=== PATIENT | female | born 1970 | race Two or more races ===

== ENCOUNTER 2019-12-21 09:15 | Outpatient (REF) | payer OTHER, SELFPAY ==
--- NOTE | 2019-12-21 | EMG_ITS ---
The right median, ulnar, motor and sensory studies were performed. Right radial sensory study was performed and paraspinal muscles were tested. IMPRESSION: 1. Symk-ra-fuxemupo right median neuropathy across carpal tunnel. 2. Ocpx-rr-isydycts right ulnar neuropathy across cubital tunnel. MD VERN Arias/LUISA / [phone]
== END 2019-12-21 09:16 | disposition home or self-care (01) ==
LOC: HO.NEURO 09:15
PROVIDERS: PCP Internal Medicine; Visit Provider Internal Medicine
DX: R20.0 Anesthesia of skin (principal)
CPT/HCPCS: 95860; 95885; 95909

== ENCOUNTER 2020-04-02 08:27 | Outpatient (REF) | payer OTHER, SELFPAY | END 2020-04-02 08:28 | disposition home or self-care (01) | LOC: HO.LAB 08:27 | PROVIDERS: PCP Internal Medicine; Visit Provider Internal Medicine | DX: Z20.822 Contact with and (suspected) exposure to COVID-19 (principal) | CPT/HCPCS: 36415; C9803; U0003 ==

== ENCOUNTER 2020-04-24 08:07 | Outpatient (REF) | payer OTHER, SELFPAY | END 2020-04-24 08:08 | disposition home or self-care (01) | LOC: HO.LAB 08:07 | PROVIDERS: Visit Provider Internal Medicine | DX: Z20.822 Contact with and (suspected) exposure to COVID-19 (principal) | CPT/HCPCS: 36415; C9803; U0003; U0005 ==

== ENCOUNTER 2020-05-15 10:52 | Outpatient (REF) | payer OTHER, SELFPAY ==
--- NOTE | ~2020-05-15 | XR_ITS ---
EXAMINATION: XR HAND, RIGHT CLINICAL INFORMATION: Synovitis and tenosynovitis. COMPARISON: None. TECHNIQUE: PA, lateral, and oblique views of the right hand. FINDINGS: The intercarpal, carpometacarpal and interphalangeal joint spaces are maintained. No visible acute fracture, dislocation or loose body seen. There is a small bone fragment adjacent to the scaphoid bone, likely old avulsion injury. The soft tissues are unremarkable. XR/XR hand RT min 3V IMPRESSION: No acute fracture, dislocation or subluxation. Small avulsion fragment adjacent to the scaphoid bone, likely old injury.
== END 2020-05-15 10:53 | disposition home or self-care (01) ==
LOC: HO.HMGCX 10:52
PROVIDERS: PCP Internal Medicine; Visit Provider Nurse Practitioner Family
DX: M65.9 Synovitis and tenosynovitis, unspecified (principal)
CPT/HCPCS: 73130

== ENCOUNTER 2020-05-16 08:51 | Outpatient (REF) | payer OTHER, SELFPAY | END 2020-05-16 08:52 | disposition home or self-care (01) | LOC: HO.LAB 08:51 | PROVIDERS: Visit Provider Internal Medicine | DX: Z20.822 Contact with and (suspected) exposure to COVID-19 (principal) | CPT/HCPCS: 36415; C9803; U0003; U0005 ==

== ENCOUNTER 2020-06-30 22:34 | Emergency (ER) | payer OTHER, SELFPAY ==
[2020-06-30 22:35] VITALS: BP 140/70; PULSE 108; O2SAT 100
[2020-06-30 23:49] VITALS: BP 108/79; PULSE 94; RESP 16; TEMP 36.2; O2SAT 96; BMI 36.6
--- NOTE | 2020-07-01 00:15 | PC.NURSE ---
at bedside for primary eval.
--- NOTE | 2020-07-01 00:20 | ECG_ITS ---
Test Reason : SOB Blood Pressure : / mmHG Vent. Rate : 084 BPM Atrial Rate : 084 BPM P-R Int : 156 ms QRS Dur : 090 ms QT Int : 392 ms P-R-T Axes : 033 022 018 degrees QTc Int : 463 ms Normal sinus rhythm Nonspecific T wave abnormality Prolonged QT Abnormal ECG When compared with ECG of 10-OCT-2019 15:58, No significant change was found Referred By: Marcelle Hanks Electronically Signed By:Tahir Mederos
--- NOTE | 2020-07-01 00:24 | ED.GENADULT ---
HPI - General Adult General Chief complaint: Anxiety Stated complaint: Anxiety Time Seen by Provider: 07/01/20 00:12 Source: patient Mode of arrival: ambulatory Limitations: no limitations History of Present Illness HPI narrative: Patient comes to emergency room complaining of worsening panic attacks. Patient states that she takes usually Klonopin for anxiety/panic attacks, lately they become more frequent and at night only, patient has been doubling up her dose of Klonopin. Patient also complaining of diarrhea for 4 days, states that yesterday she was running towards the bathroom, tripped and landed on her buttocks. Related Data Home Medications Medication Instructions Recorded Confirmed clonazepam 0.5 mg tablet 0.5 mg PO TID PRN 02/29/20 02/29/20 oxcarbazepine 150 mg tablet 0 mg PO 02/29/20 02/29/20 oxcarbazepine 600 mg tablet 600 mg PO BID 02/29/20 02/29/20 quetiapine 100 mg tablet 100 mg PO BEDTIME 02/29/20 02/29/20 quetiapine 400 mg tablet 400 mg PO BEDTIME 02/29/20 02/29/20 quetiapine 50 mg tablet 0 mg PO 02/29/20 02/29/20 Previous Rx's Medication Instructions Recorded polyethylene glycol 3350 17 17 g PO DAILY PRN 30 Days #510 g 12/20/19 gram/dose oral powder gabapentin 100 mg capsule 100 mg PO TID #60 cap 12/22/19 naproxen 500 mg tablet 500 mg PO BID PRN #30 tab 12/22/19 cholecalciferol (vitamin D3) 25 25 mcg PO DAILY 90 Days #90 cap 02/29/20 mcg (1,000 unit) capsule loperamide 2 mg PO Q4H PRN #10 tab 07/01/20 Allergies Allergy/AdvReac Type Severity Reaction Status Date / Time fentanyl [FENTANYL] Allergy Unknown VOMITING Verified 02/29/20 09:07 Penicillins [PENICILLINS] Allergy Unknown ANAPHYLAXIS Verified 02/29/20 09:07 sertraline [From ZOLOFT] Allergy Unknown ANXIETY Verified 02/29/20 09:07 zolpidem [From AMBIEN] Allergy Unknown unk Verified 02/29/20 09:07 Review of Systems Review of Systems: Constitutional : No Weight loss, No Fever, No Chills, No Night Sweats, No Fatigue, No Malaise ENT/Mouth : No Hearing loss, No Ear Pain, No Nasal Congestion, No Sinus Pain, No Hoarseness, No sore throat, No Rhinorrhea, No Swallowing Difficulty Eyes: No Eye Pain, No Swelling, No Redness, No Foreign Body, No Discharge, No Vision Changes Cardiovascular : No Chest Pain, No SOB, No Dyspnea on Exertion, No Orthopnea, No Edema, No Palpitations Respiratory : No Cough, No Sputum, No Wheezing, No Smoke Exposure, No Dyspnea Gastrointestinal : No Nausea, No Vomiting, complaining of 4 days of Diarrhea, No Constipation, complaining of intermittent abdominal cramping, No Hematochezia, No Melena Genitourinary : no irregular bleeding, No Dysuria, No Urinary Frequency, No Hematuria, No Urinary Incontinence, No Urgency, No Flank Pain, No Urinary Flow Changes, No Hesitancy Musculoskeletal : Complaining of chronic pain due to fibromyalgia Skin : No Skin Lesions, No rash Neuro : No Weakness, No Numbness, No Paresthesias, No Loss of Consciousness, No Dizziness, No Headache Psych : Complaining of worsening anxiety and panic attacks, No Depression, No SI/HI/AH/VH, No Social Issues, Heme/Lymph: No Bruising, No Bleeding,No Lymphadenopathy Endocrine : No Polyuria, No Polydipsia, No Temperature Intolerance PMFSH Past Medical History Medical History Anxiety Bipolar disorder Constipation by delayed colonic transit Depression Hypovitaminosis D Surgical History History of appendectomy History of bunionectomy History of cholecystectomy History of hemorrhoidectomy History of right hip replacement Family History Family History (Updated 02/26/20 @ 06:56 by Carol Jose Fabio) Father Depression Prostate cancer Chronic mental illness Mother Diabetes Cancer Maternal Aunt Breast cancer Family/Other Chronic mental illness Social History Social History Alcohol intake: never Smoking Status: Never smoker Advance Directives: No Advance Directives Information Provided: No Physical Exam Vital Signs: Vital Signs: Last Vital Signs Temp 97.1 F 06/30/20 23:49 Pulse 88 07/01/20 00:48 Resp 16 07/01/20 00:48 BP 116/81 04/19/21 00:48 Pulse Ox 96 06/30/20 23:49 Body Mass Index 36.6 Appearance: Alert. Oriented X3. No acute distress. Eyes: Pupils equal, round and reactive to light. ENT: Pharynx normal. Neck: Normal inspection. Neck supple. No lymph nodes noted. No crepitus CVS: Normal heart rate and rhythm. Pulses normal. Normal S1 and S2 Respiratory: No respiratory distress. Breath sounds normal. No Wheezing. No rales Abdomen: Soft and nontender. No rigidity. No distention. Skin: Skin warm and dry. Normal skin color. Normal skin turgor. Extremities: No lower extremity edema. No lower extremity edema. No Lacerations. No Rash Neuro: Oriented X 3. No motor deficit. No sensory deficit. Moving all extermities. No slurred speech. Course Course Course Narrative: I discussed the labs with the patient, patient instructed to follow-up with her primary care physician. Patient has chronic elevated LFTs. Patient tested positive for benzos and THC. Medical Decision Making Lab Data Result diagrams: 07/01/20 01:23 07/01/20 01:23 Labs: Lab Results 07/01/20 07/01/20 07/01/20 Range/Units 00:47 00:47 01:23 WBC 8.0 (4.8-10.8) X10*3/uL RBC 4.90 (4.20-5.50) X10*6/uL Hgb 14.7 (12.0-16.0) g/dl Hct 45.3 (37-47) % MCV 92.4 (80-98) fL MCH 30.0 (27.0-33.0) pg MCHC 32.5 (31.0-35.0) g/dl RDW 13.2 (11.0-16.0) % Plt Count 239 (160-400) X10*3/uL MPV 9.1 L (9.4-12.3) fL Immature Gran % (Auto) 0.2 (0.0-0.4) % Neut % (Auto) 44.6 L (45-73) % Lymph % (Auto) 40.0 (20-40) % [place] % (Auto) 8.5 (2-11) % Eos % (Auto) 5.8 H (0-4) % Baso % (Auto) 0.9 (0-2) % Lymph # (Auto) 3.2 (1.2-4.9) X10*3/uL [place] # (Auto) 0.7 (0.1-1.2) X10*3/uL Eos # (Auto) 0.5 H (0.0-0.4) X10*3/uL Baso # (Auto) 0.1 (0.0-0.2) X10*3/uL Abs Immat Gran (auto) 0.02 (0.00-0.03) X10*3/uL Absolute Neuts (auto) 3.6 (2.0-8.3) X10*3/uL Absolute Nucleated RBC 0.000 (0.0-0.012) X10*3/uL Nucleated RBC % (auto) 0.0 (0.0-0.2) /100WBC Sodium (135-145) mmol/L Potassium (3.3-5.1) mmol/L Chloride (96-108) mmol/L Carbon Dioxide (22-29) mmol/L Anion Gap (12-20) BUN (9-16) mg/dL Creatinine (0.5-1.4) mg/dL Estim Creat Clear Calc Estimated GFR Random Glucose (60-115) mg/dL Calcium (8.4-10.2) mg/dL Total Bilirubin (0.0-1.0) mg/dL Direct Bilirubin (0.0-0.5) mg/dL AST (5-31) U/L ALT (0-31) U/L Alkaline Phosphatase (39-117) U/L Total Protein (6.5-8.0) g/dL Albumin (3.5-5.0) g/dL Lipase (8-78) U/L Urine Color YELLOW Urine Appearance CLEAR Urine pH 6.0 (5.0-8.0) Ur Specific [place] >= 1.030 H (1.005-1.025) Urine Protein NEG (NEG-TRACE) MG/DL Urine Glucose (UA) NEG (NEG) MG/DL Urine Ketones NEG (NEG) MG/DL Urine Blood NEG (NEG) Urine Nitrite NEG (NEG) Ur Leukocyte Esterase NEG (NEG) Urine Opiates Screen Not Detected (Not Detect) Ur Barbiturates Screen Not Detected (Not Detect) Ur Phencyclidine Scrn Not Detected (Not Detect) Ur Amphetamines Screen Not Detected (Not Detect) U Benzodiazepines Scrn POSITIVE H (Not Detect) Urine Cocaine Screen Not Detected (Not Detect) U Marijuana (THC) Screen POSITIVE H (Not Detect) 07/01/20 07/01/20 Range/Units 01:23 01:23 WBC (4.8-10.8) X10*3/uL RBC (4.20-5.50) X10*6/uL Hgb (12.0-16.0) g/dl Hct (37-47) % MCV (80-98) fL MCH (27.0-33.0) pg MCHC (31.0-35.0) g/dl RDW (11.0-16.0) % Plt Count (160-400) X10*3/uL MPV (9.4-12.3) fL Immature Gran % (Auto) (0.0-0.4) % Neut % (Auto) (45-73) % Lymph % (Auto) (20-40) % [place] % (Auto) (2-11) % Eos % (Auto) (0-4) % Baso % (Auto) (0-2) % Lymph # (Auto) (1.2-4.9) X10*3/uL [place] # (Auto) (0.1-1.2) X10*3/uL Eos # (Auto) (0.0-0.4) X10*3/uL Baso # (Auto) (0.0-0.2) X10*3/uL Abs Immat Gran (auto) (0.00-0.03) X10*3/uL Absolute Neuts (auto) (2.0-8.3) X10*3/uL Absolute Nucleated RBC (0.0-0.012) X10*3/uL Nucleated RBC % (auto) (0.0-0.2) /100WBC Sodium 140 (135-145) mmol/L Potassium 3.3 (3.3-5.1) mmol/L Chloride 105 (96-108) mmol/L Carbon Dioxide 20 L (22-29) mmol/L Anion Gap 18 (12-20) BUN 13 (9-16) mg/dL Creatinine 0.80 (0.5-1.4) mg/dL Estim Creat Clear Calc 96.2 Estimated GFR > 60 Random Glucose 102 (60-115) mg/dL Calcium 9.2 (8.4-10.2) mg/dL Total Bilirubin 0.5 (0.0-1.0) mg/dL Direct Bilirubin 0.2 (0.0-0.5) mg/dL AST 35 H (5-31) U/L ALT 50 H (0-31) U/L Alkaline Phosphatase 159 H (39-117) U/L Total Protein 7.6 (6.5-8.0) g/dL Albumin 4.4 (3.5-5.0) g/dL Lipase 32 (8-78) U/L Urine Color Urine Appearance Urine pH (5.0-8.0) Ur Specific [place] (1.005-1.025) Urine Protein (NEG-TRACE) MG/DL Urine Glucose (UA) (NEG) MG/DL Urine Ketones (NEG) MG/DL Urine Blood (NEG) Urine Nitrite (NEG) Ur Leukocyte Esterase (NEG) Urine Opiates Screen (Not Detect) Ur Barbiturates Screen (Not Detect) Ur Phencyclidine Scrn (Not Detect) Ur Amphetamines Screen (Not Detect) U Benzodiazepines Scrn (Not Detect) Urine Cocaine Screen (Not Detect) U Marijuana (THC) Screen (Not Detect) ECG Data Attestation: I personally reviewed and interpreted this ECG as follows: (Sinus rhythm, heart rate 84, QTC 463, Mrs. 7 depression or elevation, no T-wave inversion) Discharge Plan Discharge Clinical Impression: Anxiety Diarrhea Qualifiers: Diarrhea type: unspecified type Qualified Code(s): R19.7 - Diarrhea, unspecified Patient Disposition: Home, Self-Care Instructions: Acute Diarrhea (ED), Anxiety (ED) Additional Instructions: Please follow-up with your primary care physician tomorrow. If you have any worsening or new symptoms, please return to the emergency room or call 911 Prescriptions: New loperamide 2 mg tablet 2 mg PO Q4H PRN (Reason: loose stool) Qty: 10 RF: 0 No Action polyethylene glycol 3350 [Miralax] 17 gram/dose powder 17 g PO DAILY PRN (Reason: constipation) 30 Days Qty: 510 RF: 3 quetiapine 400 mg tablet 400 mg PO BEDTIME RF: 0 quetiapine 50 mg tablet 0 mg PO RF: 0 oxcarbazepine 600 mg tablet 600 mg PO BID RF: 0 quetiapine 100 mg tablet 100 mg PO BEDTIME RF: 0 clonazepam 0.5 mg tablet 0.5 mg PO TID PRNRF: 0 oxcarbazepine 150 mg tablet 0 mg PO RF: 0 cholecalciferol (vitamin D3) 25 mcg (1,000 unit) capsule 25 mcg PO DAILY 90 Days Qty: 90 RF: 3 naproxen 500 mg tablet 500 mg PO BID PRN (Reason: pain) Qty: 30 RF: 0 gabapentin 100 mg capsule 100 mg PO TID Qty: 60 RF: 0
[2020-07-01] MEDS: Loperamide HCl 2 MG CAPSULE 4 MG PO (00:39)
[2020-07-01 00:48] VITALS: BP 116/81; PULSE 88; RESP 16
--- NOTE | 2020-07-01 00:52 | PC.NURSE ---
UA and EKG obtained by this RN.
[2020-07-01 00:55] LABS: Glucose Urine UA NEG (NEG); Leukocyte Esterase Urine NEG (NEG); Nitrite Urine NEG (NEG); Specific Gravity - Urine >= 1.030 (1.005-1.025); Urine Blood NEG (NEG); Urine Ketones NEG (NEG); Urine Protein NEG (NEG-TRACE)
[2020-07-01 00:57] LABS: Appearance Urine CLEAR; Color Urine YELLOW
[2020-07-01 01:19] LABS: Amphetamine Screen Urine Not Detected (Not Detect); Barbiturates, Urine Not Detected (Not Detect); Benzodiazepines Screen Urine POSITIVE (Not Detect); Cannabinoid Screen Urine POSITIVE (Not Detect); Cocaine Screen Urine Not Detected (Not Detect); Opiate Screen Urine Not Detected (Not Detect); Phencyclidine Screen Urine Not Detected (Not Detect)
[2020-07-01] MEDS: 0.9 % Sodium Chloride 1,000 ML 999 ML IVCONT (01:23)
--- NOTE | 2020-07-01 01:24 | PC.NURSE ---
IV inserted, blood work drawn and sent to lab. pt resting comfortably in bed watching videos on her phone. no distress noted. pt has no questions or concerns at this time. call john in reach.
[2020-07-01 01:28] LABS: MANUAL DIFF FLAG NO
[2020-07-01 01:30] LABS: Basophils Absolute Auto 0.1 X10*3/uL (0.0-0.2); Basophils Percent Auto 0.9 % (0-2); Eosinophils Absolute Auto 0.5 X10*3/uL (0.0-0.4); Eosinophils Percent Auto 5.8 % (0-4); Hematocrit 45.3 % (37-47); Hemoglobin 14.7 g/dl (12.0-16.0); Imm Gran Abs Auto 0.02 X10*3/uL (0.00-0.03); Imm Gran Pct Auto 0.2 % (0.0-0.4); Lymphocytes Absolute Auto 3.2 X10*3/uL (1.2-4.9); Mean Corpuscular HGB Conc 32.5 g/dl (31.0-35.0); Mean Corpuscular Volume 92.4 fL (80-98); Mean Platelet Volume 9.1 fL (9.4-12.3); Monocytes Absolute Auto 0.7 X10*3/uL (0.1-1.2); Monocytes Percent Auto 8.5 % (2-11); Neutrophils Absolute Auto 3.6 X10*3/uL (2.0-8.3); Neutrophils Percent Auto 44.6 % (45-73); Platelet Count 239 X10*3/uL (160-400); Red Cell Distribution Width 13.2 % (11.0-16.0)
[2020-07-01 02:02] LABS: Lipase 32 U/L (8-78)
[2020-07-01 02:07] LABS: Alanine Aminotransferase 50 U/L (0-31); Albumin Level 4.4 g/dL (3.5-5.0); Alkaline Phosphatase 159 U/L (39-117); Anion Gap 18 (12-20); Aspartate Amino Transferase 35 U/L (5-31); Bilirubin Direct 0.2 mg/dL (0.0-0.5); Bilirubin Total 0.5 mg/dL (0.0-1.0); Blood Urea Nitrogen 13 mg/dL (9-16); Calcium 9.2 mg/dL (8.4-10.2); Carbon Dioxide 20 mmol/L (22-29); Chloride 105 mmol/L (96-108); Creatinine Clr Calc Pharmacy 96.2; Estimated Glomerular Filt Rate > 60; Glucose Random 102 mg/dL (60-115); Potassium 3.3 mmol/L (3.3-5.1); Sodium 140 mmol/L (135-145); Total Protein 7.6 g/dL (6.5-8.0)
[2020-07-01 02:45] VITALS: BP 108/68; PULSE 88; RESP 16
== END 2020-07-01 03:00 | disposition home or self-care (01) ==
PROVIDERS: Emergency Provider Emergency Medicine; PCP Internal Medicine
DX: F41.1 Generalized anxiety disorder (principal); F43.0 Acute stress reaction; R19.7 Diarrhea, unspecified; Z79.899 Other long term (current) drug therapy
CPT/HCPCS: 36415; 80048; 80076; 80307; 81003; 83690; 85025; 93005; 96360; 99284

== ENCOUNTER 2020-07-09 08:38 | Outpatient (REF) | payer OTHER, SELFPAY ==
--- NOTE | ~2020-07-09 | XR_ITS ---
EXAMINATION: BILATERAL FOOT X-RAY CLINICAL INFORMATION: Pain COMPARISON: Previous left foot x-ray most recent September 2019 TECHNIQUE: 3 views of each foot FINDINGS: Left: There are stable postsurgical changes to the first metatarsal head. There are mild degenerative changes of the first MTP joint with small osteophytes. Joint spaces are otherwise normal. No fracture or dislocation is seen. There are calcaneal spurs. Soft tissues are normal. Right: There is mild hallux valgus deformity and arthritis at the first MTP joint. Joint spaces are otherwise normal. No fracture or dislocation is seen. There is mild paraseptal minus. There are calcaneal spurs. XR/XR foot RT min 3V IMPRESSION: Left: Stable postsurgical changes following first metatarsal head osteotomy. Mild arthritis at the first MTP joint and calcaneal spurs. Right: Mild hallux valgus deformity and arthritis at the first MTP joint. Mild pes planus. Calcaneal spurs.
--- NOTE | ~2020-07-09 | XR_ITS ---
EXAMINATION: BILATERAL FOOT X-RAY CLINICAL INFORMATION: Pain COMPARISON: Previous left foot x-ray most recent September 2019 TECHNIQUE: 3 views of each foot FINDINGS: Left: There are stable postsurgical changes to the first metatarsal head. There are mild degenerative changes of the first MTP joint with small osteophytes. Joint spaces are otherwise normal. No fracture or dislocation is seen. There are calcaneal spurs. Soft tissues are normal. Right: There is mild hallux valgus deformity and arthritis at the first MTP joint. Joint spaces are otherwise normal. No fracture or dislocation is seen. There is mild paraseptal minus. There are calcaneal spurs. XR/XR foot LT min 3V IMPRESSION: Left: Stable postsurgical changes following first metatarsal head osteotomy. Mild arthritis at the first MTP joint and calcaneal spurs. Right: Mild hallux valgus deformity and arthritis at the first MTP joint. Mild pes planus. Calcaneal spurs.
== END 2020-07-09 08:39 | disposition home or self-care (01) ==
LOC: HO.XRAY 08:38
PROVIDERS: PCP Internal Medicine; Visit Provider Internal Medicine
DX: M79.671 Pain in right foot (principal); M79.672 Pain in left foot
CPT/HCPCS: 73630

== ENCOUNTER 2020-09-26 09:14 | Outpatient (REF) | payer OTHER, SELFPAY ==
[2020-09-26 10:49] LABS: MANUAL DIFF FLAG NO
[2020-09-26 10:59] LABS: Basophils Absolute Auto 0.1 X10*3/uL (0.0-0.2); Eosinophils Absolute Auto 0.3 X10*3/uL (0.0-0.4); Eosinophils Percent Auto 4.4 % (0-4); Hematocrit 44.7 % (37-47); Hemoglobin 14.3 g/dl (12.0-16.0); Imm Gran Abs Auto 0.01 X10*3/uL (0.00-0.03); Imm Gran Pct Auto 0.2 % (0.0-0.4); Lymphocytes Absolute Auto 2.3 X10*3/uL (1.2-4.9); Lymphocytes Percent Auto 38.4 % (20-40); Mean Corpuscular Hemoglobin 30.3 pg (27.0-33.0); Mean Corpuscular Volume 94.7 fL (80-98); Mean Platelet Volume 9.7 fL (9.4-12.3); Monocytes Absolute Auto 0.5 X10*3/uL (0.1-1.2); Monocytes Percent Auto 7.9 % (2-11); Neutrophils Absolute Auto 2.9 X10*3/uL (2.0-8.3); Neutrophils Percent Auto 48.1 % (45-73); Platelet Count 250 X10*3/uL (160-400); Red Blood Count 4.72 X10*6/uL (4.20-5.50); Red Cell Distribution Width 13.5 % (11.0-16.0); White Blood Count 5.9 X10*3/uL (4.8-10.8)
[2020-09-26 11:35] LABS: Alanine Aminotransferase 30 U/L (0-31); Albumin Level 4.4 g/dL (3.5-5.0); Alkaline Phosphatase 163 U/L (39-117); Anion Gap 12 (12-20); Aspartate Amino Transferase 25 U/L (5-31); Bilirubin Total 0.4 mg/dL (0.0-1.0); Blood Urea Nitrogen 9 mg/dL (9-16); C Reactive Protein 0.37 mg/dL (< or = 0.50); Calcium 9.9 mg/dL (8.4-10.2); Carbon Dioxide 27 mmol/L (22-29); Chloride 106 mmol/L (96-108); Estimated Glomerular Filt Rate > 60; Glucose Random 72 mg/dL (60-115); Sodium 141 mmol/L (135-145); Total Protein 7.6 g/dL (6.5-8.0)
[2020-09-26 11:44] LABS: Rheumatoid Factor < 15.0 IU/mL (<15.0); Thyroid Stimulating Hormone 0.98 uIU/mL (0.32-4.0)
[2020-09-26 12:08] LABS: Erythrocyte Sedimentation Rate 7 MM/HR (0-20)
[2020-09-28 14:06] LABS: Cyclic Citrullinated Peptide <16 UNITS
[2020-09-30 14:26] LABS: Anti Nuclear Antibody Screen NEGATIVE (NEGATIVE)
[2020-10-01 14:26] LABS: Vitamin D 25-OH, D2 <4 ng/mL; Vitamin D 25-OH, D3 25 ng/mL; Vitamin D 25-OH, Total 25 ng/mL (30-100)
== END 2020-09-26 09:15 | disposition home or self-care (01) ==
LOC: HO.LAB 09:14
PROVIDERS: PCP Internal Medicine; Visit Provider Student in an Organized Health Care Education/Training Program
DX: M79.672 Pain in left foot (principal); M79.671 Pain in right foot; M25.50 Pain in unspecified joint; E55.9 Vitamin D deficiency, unspecified; F41.8 Other specified anxiety disorders; Z88.5 Allergy status to narcotic agent; Z88.0 Allergy status to penicillin; Z88.8 Allergy status to other drugs, medicaments and biological substances; Z79.899 Other long term (current) drug therapy
CPT/HCPCS: 36415; 80053; 82306; 84443; 85025; 85652; 86038; 86039; 86140; 86200; 86431; 99202

== ENCOUNTER 2020-12-10 08:54 | Outpatient (REF) | payer OTHER, SELFPAY | END 2020-12-10 08:55 | disposition home or self-care (01) | LOC: HO.LAB 08:54 | PROVIDERS: PCP Internal Medicine; Visit Provider Internal Medicine | DX: Z20.822 Contact with and (suspected) exposure to COVID-19 (principal) | CPT/HCPCS: C9803; U0003; U0005 ==

== ENCOUNTER 2021-02-04 07:02 | Emergency (ER) | payer OTHER, SELFPAY ==
--- NOTE | ~2021-02-04 | XR_ITS ---
EXAMINATION: XR SHOULDER, RIGHT CLINICAL INFORMATION: Fall COMPARISON: 08/29/2018 TECHNIQUE: AP external rotation, Grashey, scapular Y, and axillary views of the right shoulder. FINDINGS: No acute fracture or dislocation. Mild acromioclavicular and glenohumeral osteoarthritis. No suspicious bone lesion or soft tissue calcification. XR/XR shoulder RT min 2V IMPRESSION: No fracture.
[2021-02-04 07:06] VITALS: BP 109/70; PULSE 87; RESP 18; TEMP 36.3; O2SAT 97; BMI 35.7
[2021-02-04] MEDS: Ibuprofen 600 MG TABLET PO (07:11)
--- NOTE | 2021-02-04 08:20 | ED.FALL ---
HPI - Fall General Chief Complaint: Fall Stated Complaint: fall - hip, head & back pain Time Seen by Provider: 02/04/21 08:10 Source: patient Mode of arrival: ambulatory History of Present Illness HPI Narrative: 51-year-old female with a past medical history anxiety, bipolar, carpal tunnel, depression, polyarthralgia, presenting to the ED complaining of right shoulder pain s/p falling out of bed this morning. Reports rolled out of bed that is about 1.5 ft off ground, hit head, denies LOC , has been ambulatory since the incident. Admits to associated headache, nausea, & paresthesias /tingling in fingers. Reports pain with arm ROM. denies taking any anticoagulation. Denies vision change/ loss, vomiting, CP/ SOB, abdominal pain, back pain, urinary incontinence / retention, weakness MD complaint: fall Related Data Home Medications Medication Instructions Recorded Confirmed clonazepam 0.5 mg tablet 0.5 mg PO TID PRN 02/29/20 12/04/20 oxcarbazepine 600 mg tablet 600 mg PO BID 02/29/20 12/04/20 quetiapine 100 mg tablet 100 mg PO BEDTIME 02/29/20 12/04/20 quetiapine 400 mg tablet 400 mg PO BEDTIME 02/29/20 12/04/20 Previous Rx's Medication Instructions Recorded duloxetine 30 mg capsule,delayed 30 mg PO DAILY 90 Days #90 cap 07/08/20 release methocarbamol 750 mg tablet 750 mg PO TID PRN #10 tab 12/04/20 methylprednisolone 4 mg tablets in See Rx Instructions PO PER PKG DIR 12/04/20 a dose pack (Medrol (Yasmani)) #21 ea sulfamethoxazole 800 1 tab PO BID 7 Days #14 tab 01/14/21 mg-trimethoprim 160 mg tablet (Bactrim DS) acetaminophen 500 mg tablet 500 mg PO Q6H PRN #20 tab 02/04/21 (Tylenol Extra Strength) cyclobenzaprine 5 mg tablet 5 mg PO Q8H PRN 5 Days #14 tab 02/04/21 lidocaine 5 % topical patch 1 patch TOPICAL DAILY PRN #30 ea 02/04/21 (Lidoderm) MDD remove after 12 hours naproxen 500 mg tablet 500 mg PO BID PRN 10 Days #20 tab 02/04/21 Allergies Allergy/AdvReac Type Severity Reaction Status Date / Time fentanyl [FENTANYL] Allergy Intermediate VOMITING Verified 02/04/21 07:06 Penicillins [PENICILLINS] Allergy Intermediate ANAPHYLAXIS Verified 02/04/21 07:06 sertraline [From ZOLOFT] Allergy Intermediate ANXIETY Verified 02/04/21 07:06 zolpidem [From AMBIEN] Allergy Intermediate suicidal Verified 02/04/21 07:06 attempt with zolpidem Review of Systems Review of Systems: Constitutional: No Fever, No Chills ENT/Mouth: No Ear Pain, No Nasal Congestion, No sore throat, No Rhinorrhea Cardiovascular: No Chest Pain, No SOB Respiratory: No Cough, Gastrointestinal: + Nausea, No Vomiting, No Abdominal pain Genitourinary: No Dysuria, No Urinary Incontinence/retention, No Flank Pain Musculoskeletal: + joint pain, + Myalgias, No Joint Swelling Skin: No Skin Lesions, No rash Neuro: No Weakness, No Numbness, + Paresthesias, +ADEN Yes all other systems are reviewed and are negative Neurologic: Denies Abnormal speech present [facility] Past Medical History Attestation statement: The following information was validated with the patient. Medical History Anxiety Bipolar disorder Carpal tunnel syndrome Constipation by delayed colonic transit Depression Hypovitaminosis D Left foot pain Polyarthralgia Right foot pain Surgical History History of appendectomy History of bunionectomy History of cholecystectomy History of hemorrhoidectomy History of right hip replacement Family History Family History Father Depression Prostate cancer Chronic mental illness Mother Diabetes Cancer Maternal Aunt Breast cancer Family/Other Chronic mental illness Social History Social History (Updated 09/26/20 @ 09:23 by Ivan Richter LPN) Alcohol intake: former Patient Tobacco Use Status: Never used Tobacco e-Cigarette/Vaping Use: Never Used Advance Directives: No Patient : No Physical Exam Vital Signs: Vital Signs: Last Vital Signs Temp 97.3 F 02/04/21 07:06 Pulse 87 02/04/21 07:06 Resp 18 02/04/21 07:06 BP 109/70 02/04/21 07:06 Pulse Ox 97 02/04/21 07:06 Body Mass Index 35.7 Const: General: cooperative, healthy appearing, no acute distress, alert and awake Orientation/consciousness: patient oriented x3 Limitations: no limitations HENMT: Head: Yes normal to inspection and Yes atraumatic Ears: hearing grossly normal bilaterally General nose exam: Normal external nose present Face and sinus: Yes normal facial exam Eyes: General: appearance normal, both eyes and all related structures Pupils: Equal, round and reactive pupils present EOM: EOMs intact bilaterally Neck: Other: no midline cervical spinous tenderness. +Right-sided trapezius muscle tenderness to palpation Neck: Yes normal visual inspection Chest: Chest palpation & inspection: normal inspection of the chest, no crepitus and no tenderness Resp: Effort & Inspection: normal respiratory effort and no respiratory distress Cardio: Rate: regular rate Heart sounds: S1 normal heart sound present and S2 normal heart sound present Peripheral pulses: radial pulses present GI: Inspection: Yes normal to inspection Palpation (GI): Soft to palpation, nontender, no guarding and not rigid : General: Yes no CVA tenderness Back/Spine/Pelvis: Other: no midline thoracic/ lumbar spinous tenderness /step-off or deformity. + Right-sided thoracic paraspinal tenderness Back: no CVA tenderness Skin: Rashes: no rashes Wounds: no wounds Neuro: General: patient oriented x3, gait normal, tone normal, moves all extremities and no focal motor deficits Cranial nerves: Yes Equal, round and reactive pupils present Cognition (Neuro): normal cognition Speech: No Abnormal speech present Gait exam (Neuro): Normal gait present Extrem: Other: right shoulder with diffuse tenderness and deltoid tenderness to palpation. Neurovascular intact distally. Sensation intact to light touch. right Elbow /wrist/ hand/ fingers nontender with full range of motion intact General: Yes normal to inspection Course Course Course Narrative: XR shoulder RT min 2V IMPRESSION: No fracture. MDM - Fall MDM Narrative Medical decision making narrative: 51-year-old female with a past medical history anxiety, bipolar, carpal tunnel, depression, polyarthralgia, presenting to the ED complaining of right shoulder pain s/p falling out of bed this morning. on exam vital signs stable, NAD/ nontoxic, no midline spinous tenderness throughout, physical exam as above. Concern for right shoulder fracture versus MSK pain versus strain. Low concern for ICH/ fracture. Japanese head CT rule negative plan: Right shoulder x-rays Medical Records Attestation: I reviewed the patient's medical records. Lab Data Attestation: I reviewed the patient's lab results. Discharge Plan Discharge Clinical Impression: Shoulder pain Qualifiers: Chronicity: acute Laterality: right Qualified Code(s): M25.511 - Pain in right shoulder Fall Qualifiers: Encounter type: initial encounter Qualified Code(s): W19.XXXA - Unspecified fall, initial encounter Patient Disposition: Home, Self-Care Instructions: Arthralgia (ED), Fall Prevention (ED) Additional Instructions: Your x-rays are unremarkable Your pain is likely musculoskeletal Flexeril is a muscle relaxer, take at night as it makes you drowsy, do not drive, drink alcohol, or operate machinery while taking it Naproxen as an anti-inflammatory / pain medication, take with food Lidoderm patches are numbing patches, apply to painful area In addition take Tylenol at home please follow-up with her doctor If symptoms persist or worsen, pain becomes unbearable, you developed urinary retention or incontinence, or weakness return to the ED Prescriptions: New lidocaine [Lidoderm] 5 % adhesive patch,medicated 1 patch topical DAILY MDD remove after 12 hours PRN (Reason: pain) Qty: 30 RF: 0 acetaminophen [Tylenol Extra Strength] 500 mg tablet 500 mg PO Q6H PRN (Reason: pain or fever) Qty: 20 RF: 0 naproxen 500 mg tablet 500 mg PO BID PRN (Reason: pain) 10 Days Qty: 20 RF: 0 cyclobenzaprine 5 mg tablet 5 mg PO Q8H PRN (Reason: pain (scale score 7-10)) 5 Days Qty: 14 RF: 0 No Action quetiapine 400 mg tablet 400 mg PO BEDTIME RF: 0 oxcarbazepine 600 mg tablet 600 mg PO BID RF: 0 quetiapine 100 mg tablet 100 mg PO BEDTIME RF: 0 clonazepam 0.5 mg tablet 0.5 mg PO TID PRNRF: 0 duloxetine 30 mg capsule,delayed release(DR/EC) 30 mg PO DAILY 90 Days Qty: 90 RF: 0 methylprednisolone [Medrol (Yasmani)] 4 mg tablets,dose pack See Rx Instructions PO PER PKG DIR Qty: 21 RF: 0 methocarbamol 750 mg tablet 750 mg PO TID PRN (Reason: muscle spasm) Qty: 10 RF: 0 sulfamethoxazole-trimethoprim [Bactrim DS] 800-160 mg tablet 1 tab PO BID 7 Days Qty: 14 RF: 0 Referrals: Valarie Ramos MD [Primary Care Provider] - 2 days
== END 2021-02-04 08:56 | disposition home or self-care (01) ==
PROVIDERS: Emergency Provider Emergency Medicine; PCP Internal Medicine
DX: M25.511 Pain in right shoulder (principal); Z79.899 Other long term (current) drug therapy
CPT/HCPCS: 73030; 99283

== ENCOUNTER 2021-02-05 15:04 | Outpatient (REF) | payer OTHER, SELFPAY ==
--- NOTE | ~2021-02-05 | XR_ITS ---
EXAMINATION: XR HIP, RIGHT CLINICAL INFORMATION: Right hip pain COMPARISON: Radiographs dated 02/16/[address] dated 04/17/2019. TECHNIQUE: AP and frog-leg lateral views of the right hip. FINDINGS: Prosthetic components of the right total hip arthroplasty are unchanged in alignment without periprosthetic fracture or abnormal lucency. The thin rim of lucency around the femoral component appears within normal limits and unchanged from prior. Relative anteversion of the acetabular cup appears unchanged. No component migration. Soft tissues are normal. Mild osteoarthritis at the right SI joint. Degenerative spondylosis in the lower lumbar spine. XR/XR hip RT min 2V IMPRESSION: Unchanged alignment of the right total hip arthroplasty without surrounding abnormalities. Mild osteoarthritis in the right SI joint.
== END 2021-02-05 15:05 | disposition home or self-care (01) ==
LOC: HO.XRAY 15:04
PROVIDERS: PCP Internal Medicine; Visit Provider Nurse Practitioner Family
DX: M25.551 Pain in right hip (principal)
CPT/HCPCS: 73502

== ENCOUNTER 2021-02-08 06:44 | Emergency (ER) | payer OTHER, SELFPAY ==
--- NOTE | ~2021-02-08 | CT_ITS ---
EXAMINATION: CT BRAIN AND CT CERVICAL SPINE WITHOUT CONTRAST CLINICAL INFORMATION: Fall. COMPARISON: None TECHNIQUE: 5 mm thin and reformatted 2 mm thin sagittal coronal images of brain were obtained without contrast subsequently axial 3 mm thin and reformatted 2 mm thin sagittal coronal images of cervical spine were obtained. DLP 1371 FINDINGS: Brain: There is no acute intra-axial, extra-axial bleed, masses, collection or midline shift. There is no hypodensity seen to suspect an acute infarct. There is no edema. The lateral ventricles are symmetrical in size and configuration. There is a right frontal dural convexity calcification. Bone windows reveal no calvarial abnormality. Bilateral paranasal sinuses and mastoid air cells are well-aerated. Cervical spine: There is mild straightening of cervical lordosis. The vertebral heights, alignment and disc heights are normal. There is moderate ventral spondylosis C4-C5, C5-C6 and C6-C7 disc levels. The craniovertebral junction and the C1-C2 alignment is normal. Cranial vertebral junction and the C1-C2 alignment is normal. No visible acute fracture, dislocation or subluxation seen. The lateral thyroid cartilage cortex appears discontinuous and slightly deformed suspicious for a nondisplaced fracture. It could be positional artifact also. It is best visualized on axial image 41/[id number]/62. The prevertebral and paravertebral soft tissues are normal. The lung apices are clear. There is normal symmetry of bilateral parotid, submandibular and thyroid glands. CT/CT cervical spine wo con IMPRESSION: No acute intracranial process seen. No acute fracture, dislocation or subluxation seen. There is moderate spondylosis ventricles cervical spine. There is irregularity involving the left cortex thyroid cartilage. Question fracture versus positional artifact.
--- NOTE | ~2021-02-08 | CT_ITS ---
EXAMINATION: CT BRAIN AND CT CERVICAL SPINE WITHOUT CONTRAST CLINICAL INFORMATION: Fall. COMPARISON: None TECHNIQUE: 5 mm thin and reformatted 2 mm thin sagittal coronal images of brain were obtained without contrast subsequently axial 3 mm thin and reformatted 2 mm thin sagittal coronal images of cervical spine were obtained. DLP 1371 FINDINGS: Brain: There is no acute intra-axial, extra-axial bleed, masses, collection or midline shift. There is no hypodensity seen to suspect an acute infarct. There is no edema. The lateral ventricles are symmetrical in size and configuration. There is a right frontal dural convexity calcification. Bone windows reveal no calvarial abnormality. Bilateral paranasal sinuses and mastoid air cells are well-aerated. Cervical spine: There is mild straightening of cervical lordosis. The vertebral heights, alignment and disc heights are normal. There is moderate ventral spondylosis C4-C5, C5-C6 and C6-C7 disc levels. The craniovertebral junction and the C1-C2 alignment is normal. Cranial vertebral junction and the C1-C2 alignment is normal. No visible acute fracture, dislocation or subluxation seen. The lateral thyroid cartilage cortex appears discontinuous and slightly deformed suspicious for a nondisplaced fracture. It could be positional artifact also. It is best visualized on axial image 41/[id number]/62. The prevertebral and paravertebral soft tissues are normal. The lung apices are clear. There is normal symmetry of bilateral parotid, submandibular and thyroid glands. CT/CT head/brain wo con IMPRESSION: No acute intracranial process seen. No acute fracture, dislocation or subluxation seen. There is moderate spondylosis ventricles cervical spine. There is irregularity involving the left cortex thyroid cartilage. Question fracture versus positional artifact.
[2021-02-08 07:04] VITALS: BP 106/64; PULSE 80; RESP 16; TEMP 36.7; O2SAT 98; BMI 41.5
--- NOTE | 2021-02-08 07:13 | ED.FALL ---
HPI - Fall General Chief Complaint: Fall Stated Complaint: fall hit head headache Time Seen by Provider: 02/08/21 06:48 Source: patient and old records reviewed Mode of arrival: ambulatory Limitations: no limitations History of Present Illness HPI Narrative: seen here and by PCP 02/04 and 02/05 for fall out of bed 1.5ft no LOC - had negative R shoulder and negative R hip films comes in today with c/o headache that has worsened over the past two days she feels nauseated, lights are bothering her and her neck is sore, she also notes her vision is foggy and blurry at times - she is not on AC therapy. MD complaint: fall Onset (ago): day(s) (4) Fall from: out of bed Fall witnessed: no Place fall occurred: home Loss of consciousness: none Prolonged down time: no Symptoms prior to fall: none Context: tripped/slipped Location of injury: head and pelvis (R hip) Location of injury - extremities: right: shoulder (still has persistent pain and cannot lift her arm up fully) Severity: moderate Quality: throbbing Associated symptoms (after fall): headache, neck pain and lightheaded Related Data Home Medications Medication Instructions Recorded Confirmed clonazepam 0.5 mg tablet 0.5 mg PO TID PRN 02/29/20 02/05/21 oxcarbazepine 600 mg tablet 600 mg PO BID 02/29/20 02/05/21 quetiapine 100 mg tablet 100 mg PO BEDTIME 02/29/20 02/05/21 quetiapine 400 mg tablet 400 mg PO BEDTIME 02/29/20 02/05/21 Previous Rx's Medication Instructions Recorded duloxetine 30 mg capsule,delayed 30 mg PO DAILY 90 Days #90 cap 07/08/20 release acetaminophen 500 mg tablet 500 mg PO Q6H PRN #20 tab 02/04/21 (Tylenol Extra Strength) cyclobenzaprine 5 mg tablet 5 mg PO Q8H PRN 5 Days #14 tab 02/04/21 lidocaine 5 % topical patch 1 patch TOPICAL DAILY PRN #30 ea 02/04/21 (Lidoderm) MDD remove after 12 hours naproxen 500 mg tablet 500 mg PO BID PRN 10 Days #20 tab 02/04/21 Allergies Allergy/AdvReac Type Severity Reaction Status Date / Time fentanyl [FENTANYL] Allergy Intermediate VOMITING Verified 02/05/21 14:37 Penicillins [PENICILLINS] Allergy Intermediate ANAPHYLAXIS Verified 02/05/21 14:37 sertraline [From ZOLOFT] Allergy Intermediate ANXIETY Verified 02/05/21 14:37 zolpidem [From AMBIEN] Allergy Intermediate suicidal Verified 02/05/21 14:37 attempt with zolpidem Review of Systems Review of Systems: Constitutional : No Fever, No Chills, No Fatigue ENT/Mouth : No sore throat, No Rhinorrhea, pos neck pain Eyes: No Eye Pain, No Swelling, No Redness, pos blurry vision Cardiovascular : No Chest Pain, No SOB, No Dyspnea on Exertion Respiratory : No Cough, No Sputum Gastrointestinal : No Nausea, No Vomiting, No Diarrhea, No abdominal Pain Genitourinary : No Dysuria, No Urinary Frequency, No Hematuria, Musculoskeletal : No joint pain, No Myalgias, No Joint Swelling Skin : No Skin Lesions, No rash Neuro : No Weakness, No Numbness, pos Dizziness, positive Headache Psych : No Anxiety/Panic, No Depression Heme/Lymph: No Bruising, No Bleeding,No Lymphadenopathy Endocrine : No Polyuria, No Polydipsia All other systems reviewed and are negative [facility] Past Medical History Medical History Anxiety Bipolar disorder Carpal tunnel syndrome Constipation by delayed colonic transit Depression Hypovitaminosis D Left foot pain Polyarthralgia Right foot pain Surgical History History of appendectomy History of bunionectomy History of cholecystectomy History of hemorrhoidectomy History of right hip replacement Family History Family History Father Depression Prostate cancer Chronic mental illness Mother Diabetes Cancer Maternal Aunt Breast cancer Family/Other Chronic mental illness Social History Social History Housing: House Alcohol intake: never Patient Tobacco Use Status: Never used Tobacco e-Cigarette/Vaping Use: Never Used Second Hand Smoke Exposure: No Use of substances other than those prescribed or required for medical reasons: No Advance Directives: Yes Advance Directives Information Provided: Yes Advance Directives on File: No Current occupational status: employed Physical Exam Vital Signs: Vital Signs: Last Vital Signs Temp 98.1 F 02/08/21 07:04 Pulse 80 02/08/21 07:04 Resp 16 02/08/21 07:04 BP 106/64 02/08/21 07:04 Pulse Ox 98 02/08/21 07:04 Body Mass Index 41.5 Appearance: Alert. Oriented X3. No acute distress. Eyes: Pupils equal, round and reactive to light. Photophobia ENT: Pharynx normal. Neck: Mild ttp along midline but no step offs CVS: Normal heart rate and rhythm. Pulses normal. Respiratory: No respiratory distress. Breath sounds normal. Abdomen: Soft and non-tender. Skin: Skin warm and dry. Normal skin color. Normal skin turgor. Extremities: No lower extremity edema. No calf ttp R shoulder ttp cannot fully abduct the shoulder ?rotator cuff injury Neuro: Oriented X 3. No motor deficit. No sensory deficit. Course Course Course Narrative: CT cervical spine - on palpation of anterior neck no swelling absolutely no pain reported and no crepitus felt I do not believe this is a fracture clinically as she has no ttp on exam and no pain anteriorly patient feels better stable for DC MDM - Fall MDM Narrative Medical decision making narrative: 51 yo female with hx of fibromyalgia, headaches, carpel tunnel fell out of bed on 02/04 did not have LOC does not take AC therapy - she reprots that she has had a headache since then but the last two days it has worsened and she feels nauseated along with photophobia. Given her degree of pain will obtain CT head/cspine. IV medications for suspected migraine. Her presentation is likely concussion and migraine and I discussed my concerns with her. We also talked about her R shoulder and need for PT that I suspect she might have injured her rotator cuff during the fall. Discharge Plan Discharge Clinical Impression: Concussion Patient Disposition: Home, Self-Care Instructions: Concussion (ED) Additional Instructions: return to ED for any worsening symptoms or concerns CT head and cervical spine are negative I am concerned about your R shoulder and that you may have damaged your rotator cuff - please talk to your doctor about physical therapy CT head shows no injury Prescriptions: No Action lidocaine [Lidoderm] 5 % adhesive patch,medicated 1 patch topical DAILY MDD remove after 12 hours PRN (Reason: pain) Qty: 30 RF: 0 acetaminophen [Tylenol Extra Strength] 500 mg tablet 500 mg PO Q6H PRN (Reason: pain or fever) Qty: 20 RF: 0 naproxen 500 mg tablet 500 mg PO BID PRN (Reason: pain) 10 Days Qty: 20 RF: 0 cyclobenzaprine 5 mg tablet 5 mg PO Q8H PRN (Reason: pain (scale score 7-10)) 5 Days Qty: 14 RF: 0 quetiapine 400 mg tablet 400 mg PO BEDTIME RF: 0 oxcarbazepine 600 mg tablet 600 mg PO BID RF: 0 quetiapine 100 mg tablet 100 mg PO BEDTIME RF: 0 clonazepam 0.5 mg tablet 0.5 mg PO TID PRNRF: 0 duloxetine 30 mg capsule,delayed release(DR/EC) 30 mg PO DAILY 90 Days Qty: 90 RF: 0 Referrals: Valarie Ramos MD [Primary Care Provider] - 3 days (if not better)
[2021-02-08] MEDS: 0.9 % Sodium Chloride 1,000 ML 999 ML IV (07:47)
[2021-02-08] MEDS: diphenhydrAMINE HCL 50 MG/ML VIAL 25 MG IVPUSH (07:49)
[2021-02-08] MEDS: Metoclopramide HCl 10 MG/2 ML VIAL IVPUSH (07:53)
[2021-02-08 09:43] VITALS: BP 105/70; PULSE 68; RESP 18; O2SAT 97
== END 2021-02-08 09:54 | disposition home or self-care (01) ==
PROVIDERS: Emergency Provider Emergency Medicine; PCP Internal Medicine
DX: S06.0X0A Concussion without loss of consciousness, initial encounter (principal); W06.XXXA Fall from bed, initial encounter; M25.511 Pain in right shoulder; M25.551 Pain in right hip; Y93.84 Activity, sleeping; Y92.032 Bedroom in apartment as the place of occurrence of the external cause; Y99.9 Unspecified external cause status
CPT/HCPCS: 70450; 72125; 96361; 96374; 96375; 99284; J1200; J2765

== ENCOUNTER 2021-04-21 09:27 | Outpatient (REF) | payer OTHER, SELFPAY ==
[2021-04-21 09:47] LABS: COVID-19 Test Negative (Negative); IDNOW Serial# 16C4AD1C
== END 2021-04-21 09:28 | disposition home or self-care (01) ==
LOC: HO.LAB 09:27
PROVIDERS: PCP Internal Medicine; Visit Provider Internal Medicine
DX: Z20.822 Contact with and (suspected) exposure to COVID-19 (principal)
CPT/HCPCS: 87635; C9803

== ENCOUNTER 2021-05-28 10:15 | Outpatient (REF) | payer OTHER, SELFPAY ==
--- NOTE | ~2021-05-28 | XR_ITS ---
EXAMINATION: XR SHOULDER, RIGHT CLINICAL INFORMATION: Right shoulder pain COMPARISON: February 04, 2021 TECHNIQUE: Three views of the right shoulder. FINDINGS: There is no evidence of acute fracture or dislocation of the right shoulder. No calcific tendinitis. There is some spurring of the glenohumeral joint. There is degenerative spurring of the acromioclavicular joint. There is mild spurring seen at site of insertion of the supraspinatus tendon on the humeral head. There is spurring undersurface of the acromium. XR/XR shoulder RT min 2V IMPRESSION: No acute fracture or dislocation of the right shoulder. Stable degenerative change.
== END 2021-05-28 10:16 | disposition home or self-care (01) ==
LOC: HO.HMGCX 10:15
PROVIDERS: Visit Provider Internal Medicine
DX: M25.511 Pain in right shoulder (principal)
CPT/HCPCS: 73030

== ENCOUNTER 2021-06-24 06:40 | Outpatient (REF) | payer OTHER, SELFPAY ==
[2021-06-24 06:54] LABS: Basophils Absolute Auto 0.1 X10*3/uL (0.0-0.2); Basophils Percent Auto 0.7 % (0-2); Eosinophils Absolute Auto 0.4 X10*3/uL (0.0-0.4); Eosinophils Percent Auto 4.4 % (0-4); Hematocrit 43.8 % (37.0-47.0); Hemoglobin 14.2 g/dl (12.0-16.0); Imm Gran Abs Auto 0.02 X10*3/uL (0.00-0.03); Imm Gran Pct Auto 0.2 % (0.0-0.4); Lymphocytes Absolute Auto 2.1 X10*3/uL (1.2-4.9); Lymphocytes Percent Auto 24.5 % (20-40); MANUAL DIFF FLAG NO; Mean Corpuscular HGB Conc 32.4 g/dl (31.0-35.0); Mean Corpuscular Hemoglobin 30.7 pg (27.0-33.0); Mean Corpuscular Volume 94.8 fL (80.0-98.0); Mean Platelet Volume 8.6 fL (9.4-12.3); Monocytes Absolute Auto 0.5 X10*3/uL (0.1-1.2); Monocytes Percent Auto 6.5 % (2-11); Neutrophils Absolute Auto 5.3 x10*3/uL (2.0-8.3); Neutrophils Percent Auto 63.7 % (45-73); Platelet Count 210 X10*3/uL (160-400); Red Blood Count 4.62 X10*6/uL (4.20-5.50); Red Cell Distribution Width 12.9 % (11.0-16.0); White Blood Count 8.4 X10*3/uL (4.8-10.8)
[2021-06-24 07:14] LABS: C Reactive Protein 0.54 mg/dL (< or = 0.50); Cholesterol 228 mg/dL; HDL Cholesterol 42 mg/dL; LDL Cholesterol Calculated 167 mg/dl; Triglycerides 97 mg/dL
[2021-06-24 07:51] LABS: Erythrocyte Sedimentation Rate 10 MM/HR (0-20)
[2021-06-30 05:46] LABS: Vitamin D 25-OH, D2 <4 ng/mL; Vitamin D 25-OH, D3 24 ng/mL; Vitamin D 25-OH, Total 24 ng/mL (30-100)
== END 2021-06-24 06:41 | disposition home or self-care (01) ==
LOC: HO.LAB 06:40
PROVIDERS: PCP Internal Medicine; Visit Provider Nurse Practitioner Family
DX: M25.511 Pain in right shoulder (principal); G89.29 Other chronic pain; E78.00 Pure hypercholesterolemia, unspecified; I10 Essential (primary) hypertension
CPT/HCPCS: 36415; 80061; 82306; 85025; 85027; 85652; 86140

== ENCOUNTER 2021-07-02 08:51 | Outpatient (REF) | payer OTHER, SELFPAY ==
--- NOTE | ~2021-07-02 | MM_ITS ---
EXAMINATION: BONE DENSITOMETRY CLINICAL INDICATION: Asymptomatic menopausal state. COMPARISON: None (current study represents initial baseline exam). TECHNIQUE: Using a [employer] DXA System (software version: 13.1) manufactured by [employer], dual-energy x-ray absorptiometry was performed of the lumbar spine and left hip. The images are of good technical quality. Summary results are attached. FINDINGS: AP SPINE L1-L4: BMD 1.260 g/cm2, Z-score 0.3, T-score 0.7, normal. LEFT FEMUR, NECK: BMD 1.094 g/cm2, Z-score 0.7, T-score 0.4, normal. LEFT FEMUR, TOTAL: BMD 1.164 g/cm2, Z-score 1.1, T-score 1.2, normal. IDENTIFIED RISK FACTORS: Recurrent falls. Early menopause, secondary osteoporosis, family history (parental hip fracture). HISTORY OF FRACTURE: Femur/hip. MEDICATIONS: None listed. MM/XR DEXA axial skeleton IMPRESSION: 1. DIAGNOSIS: Normal bone density based on the lowest T-score value of 0.4 in the femoral neck applying World Health Organization criteria. 2. 10-YEAR FRACTURE RISK PREDICTION, FRAX: According to the guidelines, FRAX calculation should only be performed on patients in the osteopenia bone density category. Therefore, FRAX was not performed on this patient. 3. Treatment Recommendations: NOF guidelines recommend consideration for treatment in postmenopausal women and men age 50 and older presenting with the following: -A hip or vertebral (clinical or morphometric) fracture. -T-score less than or equal to -2.5 at the femoral neck or spine after appropriate evaluation to exclude secondary causes. -Low bone mass at the hip or spine and a 10-year fracture probability by FRAX of greater than or equal to 3% for hip fracture or greater than or equal to 20% for major osteoporotic fracture based on the [place] adapted WHO algorithm. 4. Other Recommendations: All treatment decisions require clinical judgment and consideration of individual patient factors, including patient preferences, comorbidities, previous drug use, risk factors not captured in the FRAX model (e.g. frailty, falls, vitamin D deficiency, increased bone turnover, interval significant decline in bone density) and possible under or overestimation of fracture risk by FRAX. FUTURE SCAN RECOMMENDATION: People with diagnosed cases of osteoporosis or at high risk for fracture should have regular bone mineral density tests. For patients eligible for Medicare, routine testing is allowed once every 2 years. The testing frequency can be increased to one year for patients who have rapidly progressing disease, those who are receiving or discontinuing medical therapy to restore bone mass, or have additional risk factors.
== END 2021-07-02 08:52 | disposition home or self-care (01) ==
LOC: HO.MAMMO 08:51
PROVIDERS: PCP Internal Medicine; Visit Provider Nurse Practitioner Family
DX: Z13.820 Encounter for screening for osteoporosis (principal); N91.2 Amenorrhea, unspecified; Z78.0 Asymptomatic menopausal state; Z91.81 History of falling
CPT/HCPCS: 77080

== ENCOUNTER → 2021-07-31 08:37 | Outpatient (BNVA) | payer OTHER, SELFPAY | PROVIDERS: PCP Internal Medicine; Visit Provider Physician Assistant | DX: M75.80 Other shoulder lesions, unspecified shoulder (principal); M54.12 Radiculopathy, cervical region; M19.019 Primary osteoarthritis, unspecified shoulder | CPT/HCPCS: 20610; 99202; J1040 ==

== ENCOUNTER 2021-09-18 11:09 | Outpatient (REF) | payer OTHER, SELFPAY ==
--- NOTE | ~2021-09-18 | US_ITS ---
EXAMINATION: US ABDOMEN COMPLETE CLINICAL INFORMATION: Unspecified abdominal pain. COMPARISON: CT 04/17/2019 TECHNIQUE: Real-time imaging of the abdominal viscera. FINDINGS: PANCREAS: The visualized proximal portion of the pancreas is unremarkable. The distal portion is obscured secondary to overlying bowel gas. ABDOMINAL AORTA: The proximal, mid, and distal segments are normal in caliber. INFERIOR VENA CAVA: Visualized portions are normal. LIVER: The liver is normal in size. The liver contour is normal. There is diffusely increased liver parenchymal echogenicity, consistent with hepatic steatosis. No focal hepatic lesion. There is no intrahepatic biliary duct dilatation seen. GALLBLADDER: The gallbladder is physiologically distended without evidence of stones, sludge, polyps, wall thickening or pericholecystic fluid. COMMON BILE DUCT: Normal in caliber measuring 0.5 cm in diameter. RIGHT KIDNEY: No hydronephrosis. No renal calculi or focal parenchymal lesions. The kidney measures 10.0 cm in maximum dimension. LEFT KIDNEY: No hydronephrosis. No renal calculi or focal parenchymal lesions. The kidney measures 10.1 cm in maximum dimension. SPLEEN: Normal. The spleen measures 10.5 cm in maximum dimension. FREE FLUID: None. US/US abdomen complete IMPRESSION: No acute findings identified. Hepatic steatosis.
[2021-09-18 13:44] LABS: MANUAL DIFF FLAG NO
[2021-09-18 13:54] LABS: Basophils Absolute Auto 0.1 X10*3/uL (0.0-0.2); Basophils Percent Auto 0.8 % (0-2); Eosinophils Absolute Auto 0.3 X10*3/uL (0.0-0.4); Eosinophils Percent Auto 4.2 % (0-4); Hematocrit 44.3 % (37.0-47.0); Hemoglobin 14.2 g/dl (12.0-16.0); Imm Gran Abs Auto 0.02 X10*3/uL (0.00-0.03); Imm Gran Pct Auto 0.3 % (0.0-0.4); Lymphocytes Absolute Auto 2.2 X10*3/uL (1.2-4.9); Lymphocytes Percent Auto 31.1 % (20-40); Mean Corpuscular HGB Conc 32.1 g/dl (31.0-35.0); Mean Corpuscular Hemoglobin 30.6 pg (27.0-33.0); Mean Corpuscular Volume 95.5 fL (80.0-98.0); Mean Platelet Volume 9.3 fL (9.4-12.3); Monocytes Absolute Auto 0.5 X10*3/uL (0.1-1.2); Monocytes Percent Auto 7.1 % (2-11); Neutrophils Percent Auto 56.5 % (45-73); Platelet Count 246 X10*3/uL (160-400); Red Blood Count 4.64 X10*6/uL (4.20-5.50); Red Cell Distribution Width 13.6 % (11.0-16.0); White Blood Count 7.1 X10*3/uL (4.8-10.8)
[2021-09-18 14:05] LABS: Alanine Aminotransferase 19 U/L (0-31); Albumin Level 4.4 g/dL (3.5-5.0); Alkaline Phosphatase 138 U/L (39-117); Anion Gap 12 (12-20); Aspartate Amino Transferase 18 U/L (5-31); Bilirubin Total 0.5 mg/dL (0.0-1.0); Blood Urea Nitrogen 14 mg/dL (9-16); Calcium 9.5 mg/dL (8.4-10.2); Carbon Dioxide 28 mmol/L (22-29); Chloride 106 mmol/L (96-108); Estimated Glomerular Filt Rate > 60; Glucose Random 88 mg/dL (60-115); Potassium 4.5 mmol/L (3.3-5.1); Sodium 141 mmol/L (135-145); Total Protein 7.6 g/dL (6.5-8.0)
== END 2021-09-18 11:10 | disposition home or self-care (01) ==
LOC: HO.HMGCLDS 11:09
PROVIDERS: PCP Internal Medicine; Visit Provider Internal Medicine
DX: R10.9 Unspecified abdominal pain (principal); M54.9 Dorsalgia, unspecified
CPT/HCPCS: 36415; 76700; 80053; 85025

== ENCOUNTER → 2021-09-25 09:27 | Outpatient (BNVA) | payer OTHER, SELFPAY | PROVIDERS: PCP Internal Medicine; Visit Provider Physician Assistant | DX: M75.81 Other shoulder lesions, right shoulder (principal); M19.011 Primary osteoarthritis, right shoulder | CPT/HCPCS: 99212 ==

== ENCOUNTER 2021-10-02 13:08 | Outpatient (REF) | payer OTHER, SELFPAY ==
--- NOTE | ~2021-10-02 | XR_ITS ---
EXAMINATION: XR KNEE, RIGHT CLINICAL INFORMATION: Pain. COMPARISON: Radiographs dated 08/29/2018. TECHNIQUE: AP, lateral, tunnel, and sunrise views of the right knee. FINDINGS: Bones and soft tissues are normal. No fracture or joint effusion. Alignment is anatomic. Joint spaces are well maintained. There is a small enthesophyte arising from the upper pole of the patella at the quadriceps tendon insertion. No abnormal soft tissue calcification. XR/XR knee RT 2V IMPRESSION: Normal right knee.
--- NOTE | ~2021-10-02 | XR_ITS ---
EXAMINATION: XR FOOT, RIGHT CLINICAL INFORMATION: History of fall. COMPARISON: Radiographs dated 07/09/2020. TECHNIQUE: AP, lateral, and oblique views of the right foot. FINDINGS: Bony mineralization is normal. There is a mild hallux valgus configuration. No fracture, dislocation or right ankle joint effusion is seen. Boehler's angle is normal. There are moderate posterior and plantar calcaneal spurs. There are calcifications of the proximal plantar aponeurosis. There is moderate bunion formation of the first metatarsal head, with adjacent small soft tissue calcification. There is very mild osteoarthritic change of the first metatarsophalangeal joint. No focal soft tissue swelling, gas or foreign body is seen. XR/XR foot RT 2V IMPRESSION: 1. No acute fracture, dislocation or right ankle joint effusion is seen. 2. There is moderate bunion formation of the right first metatarsal head. 3. There is very mild osteoarthritic change of the right first metatarsophalangeal joint. 4. There are moderate calcaneal spurs.
== END 2021-10-02 13:09 | disposition home or self-care (01) ==
LOC: HO.XRAY 13:08
PROVIDERS: PCP Internal Medicine; Visit Provider Internal Medicine
DX: M25.561 Pain in right knee (principal); M20.61 Acquired deformities of toe(s), unspecified, right foot
CPT/HCPCS: 73560; 73620

== ENCOUNTER 2021-10-12 16:35 | Emergency (ER) | payer OTHER, SELFPAY ==
--- NOTE | ~2021-10-12 | CT_ITS ---
EXAMINATION: CT HEAD WITHOUT CONTRAST CLINICAL INFORMATION: Acute mental status change COMPARISON: Head CT 02/08/2021 TECHNIQUE: Imaging was performed from the skull base to vertex without intravenous administration of contrast. This CT examination was performed using dose optimization techniques as appropriate, variously including the following: *Automated exposure control *Adjustment of mA and/or kV according to patient size (this includes techniques or standardized protocols for targeted exams where dose is matched to indication/reason for exam; i.e. extremities or head) *Use of iterative reconstruction technique Total exam dose length product: 696 mGy-cm FINDINGS: No intra or extra-axial fluid collection, hemorrhage, or mass. No ventriculomegaly. No midline shift or herniation. Basal cisterns are patent. Duval-white matter differentiation is maintained. No territorial encephalomalacia. No significant volume loss. Unchanged focus of hypoattenuation in the left putamen, which may represent dilated perivascular spaces versus remote lacunar infarct, unchanged. No other white matter hypoattenuation. No calvarial fracture or soft tissue abnormality. Mild hyperostosis frontalis interna. The mastoid air cells and visualized portions of the paranasal sinuses are well aerated. CT/CT head/brain wo con IMPRESSION: 1. No acute intracranial pathology.
--- NOTE | ~2021-10-12 | XR_ITS ---
EXAMINATION: XR HIP, RIGHT CLINICAL INFORMATION: Right hip pain COMPARISON: Right hip radiographs 04/07/2020, 02/16/2019 TECHNIQUE: AP pelvis, 2 views right hip FINDINGS: Status post noncemented right total hip arthroplasty. No interval subsidence. No periprosthetic fracture or dislocation. No new significant periprosthetic radiolucency. Minimal fine 2 mm lucency about the distal femoral stem is unchanged and nonspecific. Femoral head component remains essentially position within the acetabular cup. Left hip joint space narrowing with subchondral sclerosis and prominent osteophyte formation. The pubic symphysis and SI joints are congruent and intact. Discectomy with intervertebral spacers at L5-S1 and adjacent surgical clips noted. Disc degenerative changes at L4-L5 also seen. XR/XR hip RT w PEL1V IMPRESSION: 1. Status post right total hip arthroplasty. No radiographic evidence of interval complication. 2. Moderate left hip joint osteoarthritis.
--- NOTE | ~2021-10-12 | XR_ITS ---
EXAMINATION: XR KNEE, RIGHT CLINICAL INFORMATION: Right knee pain COMPARISON: Right knee radiographs 10/02/2021 TECHNIQUE: Four views of the right knee. FINDINGS: Trace knee joint fluid. No significant joint effusion. No fracture or dislocation identified. Joint spaces appear maintained. Mild spurring of the tibial spines. Enthesophyte formation at the patellar poles noted. No osseous lesion. XR/XR knee RT 4V IMPRESSION: 1. No acute osseous injury or significant knee joint effusion.
[2021-10-12 16:57] VITALS: BP 108/75; PULSE 78; RESP 18; TEMP 36.7; O2SAT 96; BMI 35.1
--- NOTE | 2021-10-12 17:49 | ED_ITS ---
HPI - Back Pain/Injury General Chief Complaint: Back Pain/Injury Stated Complaint: back pain/knee pain Time Seen by Provider: 10/12/21 17:49 Source: patient Mode of arrival: ambulatory Limitations: no limitations History of Present Illness HPI Narrative: Patient is a 51 year old female presenting to the emergency department today with right knee pain and right hip pain. Patient states that she stepped wrong and felt right knee and right hip pain ever since. Patient denies any dizziness, lightheadedness, abdominal pain, nausea, vomiting, fever, chills, blurry vision, double vision, loss of vision, chest pain, difficulty breathing, shortness of breath, back pain, night sweats, pain with urination, increased urinary frequency, increased urinary urgency, blood in her urine or stool, syncope or a near syncopal episode, recent trauma or falls, bowel incontinence, bladder incontinence, bowel retention, bladder retention, or any other complaints at this time. Onset (ago): hour(s) Timing: constant Severity: mild Pain scale (0-10): 2 Quality: dull Exacerbating factors: movement Relieving factors: none Associated symptoms: denies other symptoms Related Data Home Medications Medication Instructions Recorded Confirmed clonazepam 0.5 mg tablet 0.5 mg PO TID PRN 02/29/20 10/02/21 oxcarbazepine 600 mg tablet 600 mg PO BID 02/29/20 10/02/21 quetiapine 100 mg tablet 100 mg PO BEDTIME 02/29/20 10/02/21 quetiapine 400 mg tablet 400 mg PO BEDTIME 02/29/20 10/02/21 duloxetine 60 mg capsule,delayed 60 mg PO DAILY 06/23/21 10/02/21 release Previous Rx's Medication Instructions Recorded lidocaine 5 % topical patch 1 patch topical DAILY PRN pain #30 02/04/21 (Lidoderm) ea acetaminophen 500 mg tablet 500 mg PO Q6H PRN pain #30 tabs 06/23/21 nabumetone 500 mg tablet 500 mg PO BID #20 tabs 06/23/21 tizanidine 2 mg tablet 2 mg PO BID PRN muscle spasticity 06/23/21 #20 tabs cholecalciferol (vitamin D3) 50 50 mcg PO DAILY #90 tabs 07/04/21 mcg (2,000 unit) tablet lorazepam 0.5 mg tablet 0.5 mg PO DAILY PRN anxiety 1 day 09/25/21 #2 tabs Allergies Allergy/AdvReac Type Severity Reaction Status Date / Time fentanyl [FENTANYL] Allergy Intermediate VOMITING Verified 10/12/21 16:57 Penicillins [PENICILLINS] Allergy Intermediate ANAPHYLAXIS Verified 10/12/21 16:57 sertraline [From ZOLOFT] Allergy Intermediate ANXIETY Verified 10/12/21 16:57 zolpidem [From AMBIEN] Allergy Intermediate suicidal Verified 10/12/21 16:57 attempt with zolpidem Review of Systems Constitutional: Constitutional: Reports no additional constitutional complaints, Denies chills, Denies fever(s) and Denies night sweats Eyes: Eyes: Reports no additional eye complaints, Denies blurry vision, Denies change in vision, Denies diplopia, Denies eye discharge, Denies loss of vision and Denies eye pain ENT: Denies dizziness Cardiovascular: Cardiovascular: Reports no additional cardiovascular complaint s, Denies chest pain, Denies lightheadedness, Denies Loss of Consciousness and Denies dyspnea Respiratory: Respiratory: Reports no additional respiratory complaints and Denies dyspnea Gastrointestinal: Gastrointestinal: Reports no additional gastrointestinal complaints, Denies abdominal pain, Denies melena, Denies hematochezia, Denies change in bowel habits and Denies change in stool character Genitourinary: Genitourinary: Denies hematuria, Denies urinary frequency, Denies dysuria, Denies urinary incontinence, Denies urinary hesitancy and Denies urinary urgency Musculoskeletal: Musculoskeletal: Reports no additional musculoskeletal complaints, Denies numbness and Denies tingling Comments: right knee pain, right hip pain Neurologic: Denies dizziness, Denies loss of vision, Denies numbness and D enies tingling Psychiatric: Psychiatric: Reports no additional psychiatric complaints Endocrine: Endocrine: Reports no additional endocrine complaints Hematologic/Lymphatic: Hematologic/Lymphatic: Reports no additional hematologic/lymphatic complaints Allergic/Immunologic: Allergic/Immunologic: Reports no additional allergic/immunologic complaints PMFSH Past Medical History Attestation statement: The following information was validated with the patient. Source: old records reviewed Medical History Anxiety Bipolar disorder Carpal tunnel syndrome Constipation by delayed colonic transit Depression Hypovitaminosis D Left foot pain Polyarthralgia Right foot pain Surgical History History of appendectomy History of bunionectomy History of cholecystectomy History of hemorrhoidectomy History of right hip replacement Family History Family History Father Depression Prostate cancer Chronic mental illness Mother Diabetes Cancer Maternal Aunt Breast cancer Family/Other Chronic mental illness Other Mental health disorder Social History Social History Housing: House Alcohol intake: never Patient Tobacco Use Status: Never used Tobacco e-Cigarette/Vaping Use: Never Used Second Hand Smoke Exposure: No Substance Use Type: Marijuana Advance Directives: Yes Advance Directives Information Provided: Yes Advance Directives on File: No service: No Current occupational status: disabled 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 Cognitive needs: No Hearing needs: No Vision needs: Yes (glasses) Physical Exam Vital Signs: Vital Signs: Last Vital Signs Temp 97.6 F 10/12/21 20:53 Pulse 59 10/12/21 20:53 Resp 16 10/12/21 20:53 BP 99/55 L 10/12/21 20:53 Pulse Ox 98 10/12/21 20:53 O2 Del Method 10/12/21 20:53 O2 Flow Rate 2 10/12/21 19:19 BMI result Body Mass Index 35.1 Const: General: cooperative, no acute distress, alert and awake Nutritional Appearance: well nourished Orientation/consciousness: patient oriented x3 Limitations: no limitations HEENT: Head: Yes normal to inspection and Yes atraumatic Ears: hearing grossly normal bilaterally and external ears normal General nose exam: Normal external nose present, no nasal discharge noted and no epistaxis Face and sinus: Yes normal facial exam, No abrasion and No laceration Mouth: Normal oral and palatal mucosa present, no drooling and no muffled voice Eyes: General: appearance normal, both eyes and all related structures Periorbital: periorbital findings normal Eyelids: Yes eyelids normal Conjunctivae: conjunctivae normal Pupils: Equal, round and reactive pupils present EOM: EOMs intact bilaterally Neck: Neck: Yes normal visual inspection, Yes full ROM and Yes no lymphadenopathy Chest: Chest palpation & inspection: normal inspection of the chest Resp: Effort & Inspection: normal respiratory effort and able to speak in complete sentences Auscultation: clear to auscultation bilaterally Cardio: Rate: regular rate Rhythm: regular rhythm GI: Inspection: Yes normal to inspection : General: Yes no CVA tenderness Back/Spine/Pelvis: Back: no CVA tenderness Cervical Spine: normal cervical lordosis and cervical ROM normal Thoracic/Lumbar Spine: thoracic and lumbar spine normal to inspection and thoraco-lumbar ROM normal Pelvis: no pain with anterior-posterior compression Neuro: General: patient oriented x3 and moves all extremities Cranial nerves: Yes Equal, round and reactive pupils present Cognition (Neuro): normal cognition Motor exam (neuro): 5/5 motor strength present throughout Sensory Exam: Normal double simultaneous stimulation for sensation Coordination: [id number] test normal Extrem: General: Yes normal to inspection, Yes full ROM and Yes capillary refill normal Psych: Appearance: grossly normal Mental Status: mental status grossly normal Affect: normal affect Attitude: cooperative Thought process: Normal thought process present Thought content: Normal thought content present Insight: Good insight present (Psych) MDM - Back Pain/Injury MDM Narrative Medical decision making narrative: Patient is a 51 year old female presenting to the emergency department today with right knee pain and right hip pain. Patient's physical exam was unremarkable. Patient's right hip and right knee x-rays were unremarkable. When I informed the patient of these results, the patient began to seize . Patient failed the arm drop test and the patient appeared to be having a pseudoseizure. Patient awoke from the seizure AOx4. Due to this event, patient had labs drawn and a head CT performed. Patient's blood work was unremarkable. Patient's EKG was unremarkable. Patient's head CT is pending. I explained my physical exam findings as well as all test results to the patient. I answered all questions asked by the patient.I stressed the importance of the patient taking her medication as prescribed. I stressed the importance of the patient following up with her primary care provider. I stressed the importance of the patient r eturning to the emergency department immediately if her symptoms were to worsen or if she were to develop any dizziness, shortness of breath, difficulty breathing, chest pain, blurry vision, loss of vision, nausea, vomiting, abdominal pain, fever, chills, back pain, or any other complaints. Patient's disposition is pending head CT result. Patient signed out to Dr. Jim. Medical Records Attestation: I reviewed the patient's medical records. Lab Data Attestation: I reviewed the patient's lab results. Result diagrams: 10/12/21 19:21 10/12/21 19:21 Labs: Lab Results 10/12/21 10/12/21 10/12/21 Range/Units 19:19 19:21 19:21 WBC 6.5 (4.8-10.8) X10*3/uL RBC 4.30 (4.20-5.50) X10*6/uL Hgb 13.0 (12.0-16.0) g/dl Hct 40.3 (37.0-47.0) % MCV 93.7 (80.0-98.0) fL MCH 30.2 (27.0-33.0) pg MCHC 32.3 (31.0-35.0) g/dl RDW 13.2 (11.0-16.0) % Plt Count 204 (160-400) X10*3/uL MPV 8.4 L (9.4-12.3) fL Immature Gran % (Auto) 0.2 (0.0-0.4) % Neut % (Auto) 46.0 (45-73) % Lymph % (Auto) 39.9 (20-40) % [place] % (Auto) 7.7 (2-11) % Eos % (Auto) 5.4 H (0-4) % Baso % (Auto) 0.8 (0-2) % Lymph # (Auto) 2.6 (1.2-4.9) X10*3/uL [place] # (Auto) 0.5 (0.1-1.2) X10*3/uL Eos # (Auto) 0.4 (0.0-0.4) X10*3/uL Baso # (Auto) 0.1 (0.0-0.2) X10*3/uL Abs Immat Gran (auto) 0.01 (0.00-0.03) X10*3/uL Absolute Neuts (auto) 3.0 (2.0-8.3) x10*3/uL Absolute Nucleated RBC 0.000 (0.0-0.012) X10*3/uL Nucleated RBC % (auto) 0.0 (0.0-0.2) /100WBC Sodium 139 (135-145) mmol/L Potassium 3.7 (3.3-5.1) mmol/L Chloride 106 (96-108) mmol/L Carbon Dioxide 25 (22-29) mmol/L Anion Gap 12 (12-20) BUN 9 (9-16) mg/dL Creatinine 0.78 (0.5-1.4) mg/dL Estim Creat Clear Calc 95.4 Estimated GFR > 60 POC Glucose 82 (60-115) mg/dL Random Glucose 84 (60-115) mg/dL Lactic Acid (0.5-2.0) mmol/L Calcium 8.7 D (8.4-10.2) mg/dL Total Bilirubin 0.3 (0.0-1.0) mg/dL AST 15 (5-31) U/L ALT 13 (0-31) U/L Alkaline Phosphatase 126 H (39-117) U/L Total Protein 6.8 (6.5-8.0) g/dL Albumin 4.0 (3.5-5.0) g/dL 10/12/21 Range/Units 19:42 WBC (4.8-10.8) X10*3/uL RBC (4.20-5.50) X10*6/uL Hgb (12.0-16.0) g/dl Hct (37.0-47.0) % MCV (80.0-98.0) fL MCH (27.0-33.0) pg MCHC (31.0-35.0) g/dl RDW (11.0-16.0) % Plt Count (160-400) X10*3/uL MPV (9.4-12.3) fL Immature Gran % (Auto) (0.0-0.4) % Neut % (Auto) (45-73) % Lymph % (Auto) (20-40) % [place] % (Auto) (2-11) % Eos % (Auto) (0-4) % Baso % (Auto) (0-2) % Lymph # (Auto) (1.2-4.9) X10*3/uL [place] # (Auto) (0.1-1.2) X10*3/uL Eos # (Auto) (0.0-0.4) X10*3/uL Baso # (Auto) (0.0-0.2) X10*3/uL Abs Immat Gran (auto) (0.00-0.03) X10*3/uL Absolute Neuts (auto) (2.0-8.3) x10*3/uL Absolute Nucleated RBC (0.0-0.012) X10*3/uL Nucleated RBC % (auto) (0.0-0.2) /100WBC Sodium (135-145) mmol/L Potassium (3.3-5.1) mmol/L Chloride (96-108) mmol/L Carbon Dioxide (22-29) mmol/L Anion Gap (12-20) BUN (9-16) mg/dL Creatinine (0.5-1.4) mg/dL Estim Creat Clear Calc Estimated GFR POC Glucose (60-115) mg/dL Random Glucose (60-115) mg/dL Lactic Acid 0.8 (0.5-2.0) mmol/L Calcium (8.4-10.2) mg/dL Total Bilirubin (0.0-1.0) mg/dL AST (5-31) U/L ALT (0-31) U/L Alkaline Phosphatase (39-117) U/L Total Protein (6.5-8.0) g/dL Albumin (3.5-5.0) g/dL Imaging Data Right knee x-ray: Attestation: I personally reviewed and interpreted this imaging study as follows: My impression: No acute process. Radiologist's impression: EXAMINATION: XR KNEE, RIGHT? CLINICAL INFORMATION: Right knee pain? COMPARISON: Right knee radiographs 10/02/2021? TECHNIQUE: Four views of the right knee. FINDINGS: Trace knee joint fluid. No significant joint effusion. No fracture or dislocation identified. Joint spaces appear maintained. Mild spurring of the tibial spines. Enthesophyte formation at the patellar poles noted. No osseous lesion.? XR/XR knee RT 4V IMPRESSION: ? 1. No acute osseous injury or significant knee joint effusion. Dictated By: Evelio Campos Signed By: Electronically signed by Evelio Campos 10/12/211935 Right hip x-ray: Attestation: I personally reviewed and interpreted this imaging study as follows: My impression: No acute process. Radiologist's impression: EXAMINATION: XR HIP, RIGHT CLINICAL INFORMATION: Right hip pain COMPARISON: Right hip radiographs 04/07/2020, 02/16/2019 TECHNIQUE: AP pelvis, 2 views right hip FINDINGS: Status post noncemented right total hip arthroplasty. No interval subsidence. No periprosthetic fracture or dislocation. No new significant periprosthetic radiolucency. Minimal fine 2 mm lucency about the distal femoral stem is unchanged and nonspecific. Femoral head component remains essentially position within the acetabular cup. Left hip joint space narrowing with subchondral sclerosis and prominent osteophyte formation. The pubic symphysis and SI joints are congruent and intact. Discectomy with intervertebral spacers at L5-S1 and adjacent surgical clips noted. Disc degenerative changes at L4-L5 also seen.? XR/XR hip RT w PEL1V IMPRESSION: ? 1. Status post right total hip arthroplasty. No radiographic evidence of interval complication. 2. Moderate left hip joint osteoarthritis. Dictated By: Evelio Campos Signed By: Electronically signed by Evelio?Andres 10/12/211933 ECG Data Attestation: I personally reviewed and interpreted this ECG as follows: ECG interpretation date: 10/12/21 ECG interpretation time: 20:05 Prior ECG tracings: available for review Interpretation: Vent. Rate: 057 BPM ? ? Atrial Rate: 057 BPM P-R Int: 164 ms? QRS Dur: 088 ms QT Int: 464 ms ? ? ? P-R-T Axes: 040 054 033 degrees QTc Int: 451 ms ? Sinus bradycardia Otherwise normal ECG When compared with ECG of 01-JUL-2020 00:43, No significant change was found DD/ 04 Discharge Plan Discharge Clinical Impression: Right hip pain, Acute knee pain Patient Disposition: Still a Patient Instructions: Knee Pain (ED), Hip Pain (ED) Additional Instructions: Follow up with your primary care provider and an orthopedic provider. Return to the emergency department immediately if your symptoms worsen or if you develop any dizziness, shortness of breath, difficulty breathing, chest pain, blurry vision, loss of vision, nausea, vomiting, abdominal pain, fever, chills, back pain, or any other complaints. Prescriptions: No Action cholecalciferol (vitamin D3) 50 mcg (2,000 unit) tablet 50 mcg PO DAILY Qty: 90 0RF lidocaine [Lidoderm] 5 % adhesive patch,medicated 1 patch topical DAILY MDD remove after 12 hours PRN (Reason: pain) Qty: 30 0RF Rx Instructions: leave on most painful area for up to 12 hrs quetiapine 400 mg tablet 400 mg PO BEDTIME oxcarbazepine 600 mg tablet 600 mg PO BID quetiapine 100 mg tablet 100 mg PO BEDTIME clonazepam 0.5 mg tablet 0.5 mg PO TID PRN duloxetine 60 mg capsule,delayed release(DR/EC) 60 mg PO DAILY nabumetone 500 mg tablet 500 mg PO BID Qty: 20 0RF tizanidine 2 mg tablet 2 mg PO BID PRN (Reason: muscle spasticity) Qty: 20 0RF acetaminophen 500 mg tablet 500 mg PO Q6H PRN (Reason: pain) Qty: 30 0RF lorazepam 0.5 mg tablet 0.5 mg PO DAILY PRN (Reason: anxiety) 1 Days Qty: 2 0RF Rx Instructions: take one tab 30 mins prior to procedure, take the 2nd tab as needed do not drive while taking this medication Referrals: [facility] – [place], [place] [facility] [Provider Group] Valarie Ramos MD [Primary Care Provider] - Print Language: Kazakh
[2021-10-12] MEDS: Ketorolac Tromethamine 15 MG/ML VIAL IM (19:06)
[2021-10-12] MEDS: HYDROcodone Bit/Acetam 5/325 TABLET 1 TAB PO (19:06)
--- NOTE | 2021-10-12 19:16 | PC.NURSE ---
this RN called into patients room by patients significant other stating that patient is not doing well. Upon arrival in room patient is turned to left side, eyes rolling and not responding to this RN, second RN into room, oxygen applied and vitals assessed, provider called to bedside. Episode lasted approximately 2 minutes. patient groggy afterwords and states she had a small amount of urinary incontinence which is not normal for her. patient denies seizure history. c/o headache.
[2021-10-12 19:19] VITALS: BP 148/88; PULSE 67; RESP 16; O2SAT 100
[2021-10-12 19:29] LABS: Basophils Absolute Auto 0.1 X10*3/uL (0.0-0.2); Basophils Percent Auto 0.8 % (0-2); Eosinophils Absolute Auto 0.4 X10*3/uL (0.0-0.4); Eosinophils Percent Auto 5.4 % (0-4); Hematocrit 40.3 % (37.0-47.0); Imm Gran Abs Auto 0.01 X10*3/uL (0.00-0.03); Imm Gran Pct Auto 0.2 % (0.0-0.4); Lymphocytes Absolute Auto 2.6 X10*3/uL (1.2-4.9); Lymphocytes Percent Auto 39.9 % (20-40); MANUAL DIFF FLAG NO; Mean Corpuscular HGB Conc 32.3 g/dl (31.0-35.0); Mean Corpuscular Hemoglobin 30.2 pg (27.0-33.0); Mean Corpuscular Volume 93.7 fL (80.0-98.0); Mean Platelet Volume 8.4 fL (9.4-12.3); Monocytes Absolute Auto 0.5 X10*3/uL (0.1-1.2); Monocytes Percent Auto 7.7 % (2-11); Platelet Count 204 X10*3/uL (160-400); Red Cell Distribution Width 13.2 % (11.0-16.0); White Blood Count 6.5 X10*3/uL (4.8-10.8)
[2021-10-12 19:29] LABS: Glucose, Whole Blood 82 mg/dL (60-115)
--- NOTE | 2021-10-12 19:44 | ECG_ITS ---
Test Reason : AMS Blood Pressure : / mmHG Vent. Rate : 057 BPM Atrial Rate : 057 BPM P-R Int : 164 ms QRS Dur : 088 ms QT Int : 464 ms P-R-T Axes : 040 054 033 degrees QTc Int : 451 ms Sinus bradycardia Otherwise normal ECG When compared with ECG of 01-JUL-2020 00:43, No significant change was found Referred By: Jyoti Camarena Electronically Signed By:ANIKET VALLADARES MD
[2021-10-12 19:47] LABS: Alanine Aminotransferase 13 U/L (0-31); Alkaline Phosphatase 126 U/L (39-117); Anion Gap 12 (12-20); Aspartate Amino Transferase 15 U/L (5-31); Bilirubin Total 0.3 mg/dL (0.0-1.0); Blood Urea Nitrogen 9 mg/dL (9-16); Calcium 8.7 mg/dL (8.4-10.2); Carbon Dioxide 25 mmol/L (22-29); Chloride 106 mmol/L (96-108); Creatinine Clr Calc Pharmacy 95.4; Estimated Glomerular Filt Rate > 60; Glucose Random 84 mg/dL (60-115); Potassium 3.7 mmol/L (3.3-5.1); Sodium 139 mmol/L (135-145); Total Protein 6.8 g/dL (6.5-8.0)
[2021-10-12 20:02] LABS: Lactic Acid 0.8 mmol/L (0.5-2.0)
[2021-10-12 20:53] VITALS: BP 99/55; PULSE 59; RESP 16; TEMP 36.4; O2SAT 98
[2021-10-12 21:35] VITALS: BP 101/66; PULSE 65; RESP 16; TEMP 36.6; O2SAT 98
== END 2021-10-12 21:59 | disposition home or self-care (01) ==
PROVIDERS: Physician Assistant Medical; Emergency Provider Emergency Medicine; PCP Internal Medicine
DX: M54.50 Low back pain, unspecified (principal); M25.561 Pain in right knee; R51.9 Headache, unspecified; R00.1 Bradycardia, unspecified; M25.551 Pain in right hip; Z79.899 Other long term (current) drug therapy
CPT/HCPCS: 36415; 70450; 73502; 73564; 80053; 82947; 83605; 85025; 93005; 96372; 99284; J1885

== ENCOUNTER 2021-10-14 08:27 | Outpatient (REF) | payer OTHER, SELFPAY ==
--- NOTE | ~2021-10-14 | MR_ITS ---
EXAMINATION: MR SHOULDER WITHOUT CONTRAST, RIGHT CLINICAL INFORMATION: Shoulder lesions. Patient reports pain COMPARISON: None TECHNIQUE: MRI of the shoulder without contrast was performed on a high-field scanner. FINDINGS: ROTATOR CUFF: Mild supraspinatus tendinosis. There is abnormal signal in the supraspinatus and anterior fibers infraspinatus, with marked thinning and irregularity of the fibers, having the appearance of a high-grade tearing with possible full-thickness components. This measures approximately 1.9 cm AP. The tear is of varying measurements in the medial-lateral dimension, measuring up to 2.8 cm medial-lateral. There is tendinosis and articular surface fraying/partial tear in the infraspinatus posterior to the above-mentioned tear. Small intrasubstance tearing in the supraspinatus myotendinous region. Teres minor is intact. Mild subscapularis tendinosis No muscle atrophy or fatty infiltration. BICEPS: Probable proximal biceps tendinosis. CORACOACROMIAL ARCH: The undersurface of the acromion is curved with subacromial spur. Moderate acromioclavicular arthritis. LABRUM/CAPSULE: No definite labral tear is seen. Inferior capsule is intact. GLENOHUMERAL JOINT/MARROW: Greater tuberosity spurring and subcortical cyst/edema. No fracture. Small glenoid spurring. Inferior humeral head cartilage thinning. Small joint fluid. MR/MR shoulder RT wo con IMPRESSION: 1. Tear of the supraspinatus and anterior fibers infraspinatus measuring 1.9 cm AP, up to approximately 2.8 cm transverse. The tear appears to have high-grade and possible full-thickness components. Mild tendinosis in the intact supraspinatus fibers. Mild tendinosis in the infraspinatus, with articular surface fraying/partial tear posterior to the above-mentioned tear. 2. Mild subscapularis tendinosis. 3. Probable proximal biceps tendinosis. 4. Moderate acromioclavicular arthritis. 5. Mild glenohumeral joint arthritis. Small effusion.
== END 2021-10-14 08:28 | disposition home or self-care (01) ==
LOC: HO.MRI 08:27
PROVIDERS: Visit Provider Physician Assistant
DX: M19.019 Primary osteoarthritis, unspecified shoulder (principal); M75.80 Other shoulder lesions, unspecified shoulder
CPT/HCPCS: 73221

== ENCOUNTER 2021-10-27 07:41 | Outpatient (REF) | payer OTHER, SELFPAY ==
--- NOTE | ~2021-10-27 | XR_ITS ---
EXAMINATION: XR KNEE AP STANDING CLINICAL INFORMATION: Pain COMPARISON: Previous x-ray September 2021 TECHNIQUE: AP bilateral standing view of the knees was obtained. FINDINGS: Right: Bone alignment is normal. No fracture or dislocation is seen. There may be slight lateral tilt of the patella. There are small osteophytes at the patellofemoral joint. Joint spaces are otherwise normal. There is a small osteophyte at the quadriceps tendon insertion to the patella. There is no joint effusion. Standing AP view of the left knee is unremarkable. XR/XR knee RT 1V IMPRESSION: Lateral tilt of patella and mild degenerative changes of the patellofemoral joint.
--- NOTE | ~2021-10-27 | XR_ITS ---
EXAMINATION: XR KNEE AP STANDING CLINICAL INFORMATION: Pain COMPARISON: Previous x-ray September 2021 TECHNIQUE: AP bilateral standing view of the knees was obtained. FINDINGS: Right: Bone alignment is normal. No fracture or dislocation is seen. There may be slight lateral tilt of the patella. There are small osteophytes at the patellofemoral joint. Joint spaces are otherwise normal. There is a small osteophyte at the quadriceps tendon insertion to the patella. There is no joint effusion. Standing AP view of the left knee is unremarkable. XR/XR knee standing BI IMPRESSION: Lateral tilt of patella and mild degenerative changes of the patellofemoral joint.
== END 2021-10-27 07:42 | disposition home or self-care (01) ==
LOC: HO.HOSX 07:41
PROVIDERS: Visit Provider Physician Assistant
DX: M25.561 Pain in right knee (principal); M25.562 Pain in left knee; M79.601 Pain in right arm; M76.32 Iliotibial band syndrome, left leg
CPT/HCPCS: 73560; 73565; 99212

== ENCOUNTER → 2021-11-06 09:16 | Outpatient (BNVA) | payer OTHER, SELFPAY | PROVIDERS: PCP Internal Medicine; Visit Provider Orthopaedic Surgery | DX: M75.101 Unspecified rotator cuff tear or rupture of right shoulder, not specified as traumatic (principal); M62.89 Other specified disorders of muscle | CPT/HCPCS: 99212 ==

== ENCOUNTER 2021-11-18 12:15 | Emergency (ER) | payer OTHER, SELFPAY ==
[2021-11-18 12:28] VITALS: BP 122/70; PULSE 70; RESP 16; TEMP 36.6; O2SAT 96; BMI 35.1
[2021-11-18 12:34] VITALS: BP 140/96; PULSE 80
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
[2021-11-18] MEDS: Cyclobenzaprine HCl 5 MG TABLET PO (13:20)
[2021-11-18] MEDS: Ketorolac Tromethamine 15 MG/ML VIAL IM (13:20)
== END 2021-11-18 14:07 | disposition home or self-care (01) ==
PROVIDERS: Emergency Provider Emergency Medicine; PCP Internal Medicine
DX: S39.92XA Unspecified injury of lower back, initial encounter (principal); V47.5XXA Car driver injured in collision with fixed or stationary object in traffic accident, initial encounter; Y93.9 Activity, unspecified; Y92.410 Unspecified street and highway as the place of occurrence of the external cause; Y99.9 Unspecified external cause status; Z79.899 Other long term (current) drug therapy
CPT/HCPCS: 96372; 99283; 99284; J1885

== ENCOUNTER 2021-12-01 07:43 | Outpatient (RCR) | payer OTHER, SELFPAY | END 2021-12-01 10:27 | disposition home or self-care (01) | LOC: HO.PT 07:43 | PROVIDERS: Visit Provider Physician Assistant | DX: M75.101 Unspecified rotator cuff tear or rupture of right shoulder, not specified as traumatic (principal) ==

== ENCOUNTER 2021-12-03 07:56 | Day surgery (SDC) | payer OTHER, SELFPAY ==
[2021-11-28 10:27] VITALS: BMI 35.1
[2021-12-03] VITALS (11 sets, daily range): BP systolic 105–138; BP diastolic 65–81; PULSE 61–77; RESP 15–20; TEMP 36.1–36.5; O2SAT 94–99
[2021-12-03] MEDS: Lactated Ringers 1,000 ML 50 ML IVCONT (09:54)
--- NOTE | 2021-12-03 10:23 | HO.ANESPROP2 ---
HPI - Anesthesia Eval Consult details Narrative: 51 F for right shoulder arthroscopy PMFSH Active Problems Active Problems: All Active Problems (Updated 11/19/21 @ 00:03 by Nitza Harper) Right rotator cuff tear (Acute) Iliotibial band syndrome, left leg (Acute) Right foot pain (Acute) Bipolar disorder (Acute) Skin lesion (Acute) Acquired deformity of right toe (Acute) Right knee pain (Acute) Mid back pain on right side (Acute) Right sided abdominal pain (Acute) Cervical radiculopathy (Acute) Osteoarthritis of acromioclavicular joint (Acute) Rotator cuff tendonitis (Acute) Chronic right shoulder pain (Acute) Right shoulder pain (Acute) Right hip pain (Acute) Cellulitis (Acute) Cervical strain (Acute) Left foot pain (Acute) Right foot pain (Acute) Polyarthralgia (Acute) Carpal tunnel syndrome (Acute) Fibromyalgia affecting multiple sites (Acute) Tenosynovitis of finger (Acute) Hypovitaminosis D (Acute) Constipation by delayed colonic transit (Acute) Past Medical History Medical History Anxiety Bipolar disorder Carpal tunnel syndrome Constipation by delayed colonic transit Depression Hypovitaminosis D Left foot pain Polyarthralgia Right foot pain Functional capacity: independent ambulation Family History Family History Father Depression Prostate cancer Chronic mental illness Mother Diabetes Cancer Maternal Aunt Breast cancer Family/Other Chronic mental illness Other Mental health disorder Family history of problems with anesthesia: No Surgical History Surgical History History of appendectomy History of bunionectomy History of cholecystectomy History of hemorrhoidectomy History of right hip replacement History of Problems with Anesthesia: No Social History Social History Housing: House Alcohol intake: never Patient Tobacco Use Status: Never used Tobacco e-Cigarette/Vaping Use: Never Used Second Hand Smoke Exposure: No Substance Use Type: Marijuana Substance Use Frequency: Occasionally Are you DNR?: No Advance Directives: No Advance Directives Information Provided: Yes Nutrition Risks: No Nutritional Risk service: No Current occupational status: disabled 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 Cognitive needs: No Hearing needs: No Vision needs: Yes (glasses) Meds Allergies Allergy/AdvReac Type Severity Reaction Status Date / Time fentanyl [FENTANYL] Allergy Intermediate VOMITING Verified 12/03/21 09:03 Penicillins [PENICILLINS] Allergy Intermediate ANAPHYLAXIS Verified 12/03/21 09:03 sertraline [From ZOLOFT] Allergy Intermediate ANXIETY Verified 12/03/21 09:03 zolpidem [From AMBIEN] Allergy Intermediate suicidal Verified 12/03/21 09:03 attempt with zolpidem Active Medications: Current Medications Acetaminophen (Acetaminophen 325 Mg Tablet) 650 mg PO ONCE PRN PRN Reason: Pain, Mild (Pain Scale 1-3) Hydromorphone HCl (Hydromorphone Hcl 0.5 Mg/0.5 Ml Syringe) 0.25 mg IVPUSH Q5M PRN; Protocol PRN Reason: Pain, Severe (Pain Scale 7-10) Lactated Ringer's (Lr) 1,000 mls @ 50 mls/hr IVCONT .Q20H DOM Last Admin: 12/03/21 09:54 Dose: 50 mls/hr Promethazine HCl 6.25 mg/ (Sodium Chloride) 50.25 mls @ 201 mls/hr IV ONCE PRN PRN Reason: Nausea and Vomiting Home Medications Medication Instructions Recorded Confirmed Last Taken Type clonazepam 0.5 mg tablet 0.5 mg PO TID PRN Anxiety 02/29/20 12/03/21 Unknown History oxcarbazepine 600 mg tablet 600 mg PO BID 02/29/20 12/03/21 Unknown History quetiapine 100 mg tablet 100 mg PO BEDTIME 02/29/20 12/03/21 Unknown History quetiapine 400 mg tablet 400 mg PO BEDTIME 02/29/20 12/03/21 Unknown History duloxetine 60 mg capsule,delayed 60 mg PO DAILY 06/23/21 12/03/21 Unknown History release Exam Exam Date and Time: December 03, 2021 1023 Height,Weight and Vital Signs: Height 5 ft 5 in Weight 95.708 kg Last Vital Signs Temp 97.7 F 12/03/21 09:02 Pulse 73 12/03/21 09:02 Resp 18 12/03/21 09:02 BP 105/65 12/03/21 09:02 Pulse Ox 96 12/03/21 09:02 O2 Del Method 12/03/21 09:02 Airway Mallampati Class: III TM Dist: >3cm Neck ROM: Full Loose/Missing/Broken Teeth: Yes (Fillings ) Heart: S1,S2 Lungs: b/l breath sounds Assessment and Plan Assessment Anesthesia Assessment: Anesthesia Plan Discussed and Chart Reviewed Final Anesthetic Review Family History of Problems with Anesthesia: No History of Problems with Anesthesia: No NPO: Yes ASA Class: III Final Preanesthetic Review: Meds/Allgs Chart Reviewed, Consent Obtained/Reviewed and Anes Risks/Benef Reviewed Patient Risk: Intermediate Procedure Risk: Intermediate Anesthetic Plan Anesthetic Plan: GA and Regional Block Disposition: Standard PACU
--- NOTE | 2021-12-03 11:27 | MHC.SHP ---
Pre-Procedural Eval Section A Date of Service: 12/03/21 The patient is an INPATIENT: No Changes since office visit: Yes Patient answered all questions; No Cold of Flu in the past 2 weeks, No New Medical Problems and No Changes in Medication The History & Physical has been completed within 30 days and I have reviewed it.: Yes Section B Chief Complaint: Unspecified rotator cuff tear or rupture of right Allergies: Allergies Allergy/AdvReac Type Severity Reaction Status Date / Time fentanyl [FENTANYL] Allergy Intermediate VOMITING Verified 12/03/21 09:03 Penicillins [PENICILLINS] Allergy Intermediate ANAPHYLAXIS Verified 12/03/21 09:03 sertraline [From ZOLOFT] Allergy Intermediate ANXIETY Verified 12/03/21 09:03 zolpidem [From AMBIEN] Allergy Intermediate suicidal Verified 12/03/21 09:03 attempt with zolpidem Plan I have reviewed the history and physical and performed a pertinent physical examination on my patient. No changes have occurred unless specified.
--- NOTE | 2021-12-03 13:15 | PM.OP ---
Brief Operative Note Date of Service: 12/03/21 Pre-op diagnosis: Right RTC tear Procedure: Right RTC tear with SAD Implants: Sethi and Nephew suture anchor Helacoil x 4 Surgeon: Chris Silvestre MD Anesthesia: GETA and regional Was an Long Wall Mining Machine Tender used for this Procedure?: Yes Long [employer] Mining Machine Tender: Amarilis Rossi Estimated blood loss (mL): 5 IV fluids (mL): 1,000 Pathology: none sent Condition: stable Disposition: PACU
[2021-12-03] MEDS: HYDROmorphone HCl 0.5 MG/0.5 ML SYRINGE 0.25 MG IVPUSH (13:49)
--- NOTE | 2021-12-03 13:50 | P.OP_ITS ---
Operative Note Operative Note Date of Service: 12/03/21 Narrative: Date of Service: 12/03/21 Pre-op diagnosis: Right RTC tear Procedure: Right RTC tear with SAD Implants: Sethi and Nephew suture anchor Helacoil x 4 Surgeon: Chris Silvestre MD Anesthesia: GETA and regional Was an Hand Wrapper Operator used for this Procedure?: Yes Hand Wrapper Operator: Amarilis Rossi Estimated blood loss (mL): 5 IV fluids (mL): 1,000 Pathology: none sent Condition: stable Disposition: PACU Procedure in detail:? Patient was brought to the operating room and placed the the beach chair position. All bony prominences were well padded and the limb was prepped and draped in standard sterile fashion. A time out was called to identify proper site, proper procedure and proper surgeon. IV antibiotics per weight were administered. I began by making a posterolateral stab incision with a 15 blade. A blunt trochar was placed into the glenohumeral joint and I insufflated the joint with saline and a 30 degree arthroscope was placed. I established an outside- in anterior portal just distal to the biceps tendon. I then began my inspection of the glenohumeral joint. There was an intact biceps with degenerative fraying of the labrum superiorly. There were no cartilage changes. There was an intact subscapularis. There was a full thickness supraspinatus tear involving a portion of the infraspinatus.. I debrided the labral fraying and entered the sub acromial space.. ?A direct lateral portal was then established and I performed a bursectomy. The cuff was then examined. There was a full thickness tear of the supraspinatus and infraspinatus. This was a large crescentictear with intact anterior and posterior insertions. The cuff was mobile and of good quality.? I established a second anterolateral portal for suture shuttling. I then placed two medial row double loaded anchors and then brought the suture tape and sutures through the medial cuff. I then debrided the bare area down to bleeding bone and, using a cross bridge configuration, brought three limbs to each of two lateral 5.0 anchors. This re-approximated the cuff anatomy near anatomically. I then performed a 5 mm subacromial decompression. Once I was satisfied with the repair final images were captured and I removed all instrumentation. Portals were clos ed with nylon. Patient was placed in an abduction sling, extubated and brought to the recovery room in stable condition. There were no known complications.
[2021-12-03] MEDS: oxyCODONE HCl Immed Release 5 MG TABLET 10 MG PO (14:18)
== END 2021-12-03 16:51 | disposition home or self-care (01) ==
PROVIDERS: PCP Internal Medicine; Visit Provider Orthopaedic Surgery
PROC: (CPT 29827; principal; 2021-12-03 10:40)
DX: M75.101 Unspecified rotator cuff tear or rupture of right shoulder, not specified as traumatic (principal); M19.011 Primary osteoarthritis, right shoulder; M25.50 Pain in unspecified joint; M62.89 Other specified disorders of muscle; F31.9 Bipolar disorder, unspecified; E55.9 Vitamin D deficiency, unspecified; Z88.0 Allergy status to penicillin; Z88.1 Allergy status to other antibiotic agents; Z90.49 Acquired absence of other specified parts of digestive tract; Z96.641 Presence of right artificial hip joint; F12.90 Cannabis use, unspecified, uncomplicated
CPT/HCPCS: 29827; 29826; C1713; J0131; J0171; J1170; J1885; J2250; J2550; J2795; J3010

== ENCOUNTER 2022-01-08 11:19 | Outpatient (RCR) | payer OTHER, SELFPAY ==
--- NOTE | 2022-01-08 13:49 | MHC.PT.EP ---
[facility] [place] Office [place] Office [place] Office [address] Romelia Watts [address] [phone] F: [phone] F: [phone] F: [phone] F: [phone] Physical Therapy Plan of Care Date of Evaluation: Date of Surgery: 12/03/21 Diagnosis: Unspecified rotator cuff tear or rupture of right shoulder Right RTC repair and SAD 12/03/21 Assessment: Pt is a pleasant 51yo F who presents to PT s/p R RTC repair and SAD with Dr. Silvestre on 12/03/21. She presents to PT with expected impairments in pain, decreased R shoulder ROM, decreased strength, impaired posture, and soft tissue restrictions. She is limited functionally with sleeping and movement/use of R UE. She is a good candidate for skilled PT in order to address current impairments and progress per protocol in order to facilitate return to PLOF. She will be seen 2x/week for 8 weeks and will be reassessed. Frequency and Duration: The patient will be seen 2x/week for 8 weeks Short Term Goals: Pt will be I with HEP to promote self management of symptoms Pt will improve R shoulder flexion PROM to 115 degrees Pt will improve PROM R shoulder ER and IR by at least 10 deg each per protocol Automatic Coil Machine Operator Goals: Pt will demonstrate full PROM all planes of R shoulder by week 7 post op Pt will perform overhead ADLs with minimal to no compensation by week 11 post op per protocol Pt will demonstrate ROM and strength WFL all planes of R shoulder by week 15 post op per protocol Treatment Plan: Modalities to reduce pain, spasms and effusion. Manual therapy to restore motion and function. Therapeutic exercise to improve strength and flexibility. Neuromuscular re-education for posture and balance. Therapeutic activities to return to functional activities of daily living. Electronically signed by: Sofía Baker, PT, DPT Please sign and return to therapist. Thank you for your referral.
--- NOTE | 2022-02-02 15:14 | MHC.PT.DC ---
[facility] [place] Office [place] Office [place] Office [address] Romelia Watts [address] [phone] F: [phone] F: [phone] F: [phone] F: [phone] Physical Therapy Discharge Report Diagnosis: Unspecified rotator cuff tear or rupture of right shoulder Right RTC repair and SAD 12/03/21 Date of Surgery: 12/03/21 Date of Evaluation: 01/08/22 Date of Discharge: 02/02/22 Treatments to Date: 1 Cancellations to Date: No Shows to Date: 5 Discharge Status: Visit Non-compliance Discharge Summary: Pt was evaluated for PT on 01/08/22. She has had 5 consecutive no-show appointments since initial PT evaluation. Pt is being D/C from skilled PT per [facility] attendance policy and visit non-compliance. Pt current level of function unknown at this time. Electronically signed by: Sofía Baker, PT, DPT Please sign and return to therapist. Thank you for your referral.
== END 2022-02-02 15:15 | disposition home or self-care (01) ==
LOC: HO.PT 11:19
PROVIDERS: PCP Internal Medicine; Visit Provider Physician Assistant
DX: M75.101 Unspecified rotator cuff tear or rupture of right shoulder, not specified as traumatic (principal)
CPT/HCPCS: 97110; 97162

== ENCOUNTER 2022-02-12 09:41 | Outpatient (REF) | payer OTHER, SELFPAY ==
--- NOTE | ~2022-02-12 | XR_ITS ---
EXAMINATION: XR FOOT, LEFT CLINICAL INFORMATION: Pain COMPARISON: Previous x-ray June 2020 TECHNIQUE: AP, lateral, and oblique views of the left foot. FINDINGS: Stable postsurgical changes to the first metatarsal head. Mild degenerative changes of the first MTP joint. Joint spaces are otherwise normal. No fracture or dislocation. Small calcaneal spurs. XR/XR foot LT 2V IMPRESSION: Postsurgical changes to the first metatarsal head. Mild arthritis at the first MTP joint. Calcaneal spurs.
== END 2022-02-12 09:42 | disposition home or self-care (01) ==
LOC: HO.XRAY 09:41
PROVIDERS: PCP Internal Medicine; Visit Provider Internal Medicine
DX: M79.672 Pain in left foot (principal)
CPT/HCPCS: 73620

== ENCOUNTER 2022-03-22 05:31 | Emergency (ER) | payer OTHER, SELFPAY ==
--- NOTE | ~2022-03-22 | XR_ITS ---
EXAMINATION: 1. RADIOGRAPHS RIGHT SHOULDER 2. RADIOGRAPHS RIGHT HUMERUS 3. RADIOGRAPHS RIGHT KNEE CLINICAL INFORMATION: Fall COMPARISON: Right knee x-ray October 27, 2021 and October 12, 2021 and right shoulder x-rays May 28, 2021 TECHNIQUE: 3 views of the right shoulder, 2 views of the right humerus and 3 views of the right knee were obtained. FINDINGS: Right shoulder/humerus: No fracture of the right humerus. Right humeral head demonstrates good articulation with the glenoid fossa. There are postsurgical changes of the right humeral head. Mild to moderate hypertrophic changes of the right acromioclavicular joint. No focal soft tissue swelling of the right upper extremity. Visualized right-sided ribs and lung parenchyma are unremarkable. Right knee: No fracture or dislocation. No suprapatellar joint effusion. Joint spaces appear maintained. Tiny tricompartmental marginal osteophytes. No focal soft tissue swelling of the anterior knee. XR/XR knee RT 3V IMPRESSION: 1. No fracture or dislocation of the right shoulder/humerus. 2. Minimal degenerative changes of the right knee.
--- NOTE | ~2022-03-22 | XR_ITS ---
EXAMINATION: 1. RADIOGRAPHS RIGHT SHOULDER 2. RADIOGRAPHS RIGHT HUMERUS 3. RADIOGRAPHS RIGHT KNEE CLINICAL INFORMATION: Fall COMPARISON: Right knee x-ray October 27, 2021 and October 12, 2021 and right shoulder x-rays May 28, 2021 TECHNIQUE: 3 views of the right shoulder, 2 views of the right humerus and 3 views of the right knee were obtained. FINDINGS: Right shoulder/humerus: No fracture of the right humerus. Right humeral head demonstrates good articulation with the glenoid fossa. There are postsurgical changes of the right humeral head. Mild to moderate hypertrophic changes of the right acromioclavicular joint. No focal soft tissue swelling of the right upper extremity. Visualized right-sided ribs and lung parenchyma are unremarkable. Right knee: No fracture or dislocation. No suprapatellar joint effusion. Joint spaces appear maintained. Tiny tricompartmental marginal osteophytes. No focal soft tissue swelling of the anterior knee. XR/XR shoulder RT min 2V IMPRESSION: 1. No fracture or dislocation of the right shoulder/humerus. 2. Minimal degenerative changes of the right knee.
--- NOTE | ~2022-03-22 | XR_ITS ---
EXAMINATION: 1. RADIOGRAPHS RIGHT SHOULDER 2. RADIOGRAPHS RIGHT HUMERUS 3. RADIOGRAPHS RIGHT KNEE CLINICAL INFORMATION: Fall COMPARISON: Right knee x-ray October 27, 2021 and October 12, 2021 and right shoulder x-rays May 28, 2021 TECHNIQUE: 3 views of the right shoulder, 2 views of the right humerus and 3 views of the right knee were obtained. FINDINGS: Right shoulder/humerus: No fracture of the right humerus. Right humeral head demonstrates good articulation with the glenoid fossa. There are postsurgical changes of the right humeral head. Mild to moderate hypertrophic changes of the right acromioclavicular joint. No focal soft tissue swelling of the right upper extremity. Visualized right-sided ribs and lung parenchyma are unremarkable. Right knee: No fracture or dislocation. No suprapatellar joint effusion. Joint spaces appear maintained. Tiny tricompartmental marginal osteophytes. No focal soft tissue swelling of the anterior knee. XR/XR humerus RT IMPRESSION: 1. No fracture or dislocation of the right shoulder/humerus. 2. Minimal degenerative changes of the right knee.
[2022-03-22 05:35] VITALS: BP 116/70; PULSE 86; RESP 20; TEMP 36.1; O2SAT 98; BMI 36.6
--- NOTE | 2022-03-22 06:34 | ED.FALL ---
HPI - Fall General Chief Complaint: Fall Stated Complaint: Pain in R side of body d/t fall Time Seen by Provider: 03/22/22 06:24 Source: patient Mode of arrival: ambulatory Limitations: no limitations History of Present Illness HPI Narrative: 52-year-old female who presents emergency department for evaluation of a fall and pain to her right shoulder, humerus right knee. She states that yesterday around 17:00 hours she was walking down stairs,missedher last step and fell landing on her right shoulder and right knee. She denies any head injury or loss of consciousness. She was able to get up and walk around. She states however she has pain in her right knee when she walks. She also is having pain in her right shoulder which is worse with movement. The pain is a constant, sharp pain which is 10/10. The patient states that this morning her neck began to bother her as well. She denied headache, nausea, vomiting, weakness or numbness. Patient did not taking medications for her pain Related Data Home Medications Medication Instructions Recorded Confirmed clonazepam 0.5 mg tablet 0.5 mg PO TID PRN Anxiety 02/29/20 02/02/22 oxcarbazepine 600 mg tablet 600 mg PO BID 02/29/20 02/02/22 quetiapine 100 mg tablet 100 mg PO BEDTIME 02/29/20 02/02/22 quetiapine 400 mg tablet 400 mg PO BEDTIME 02/29/20 02/02/22 duloxetine 60 mg capsule,delayed 60 mg PO DAILY 06/23/21 02/02/22 release Previous Rx's Medication Instructions Recorded lidocaine 5 % topical patch 1 patch topical DAILY PRN pain #30 02/04/21 (Lidoderm) ea nabumetone 500 mg tablet 500 mg PO BID #20 tabs 06/23/21 tizanidine 2 mg tablet 2 mg PO BID PRN muscle spasticity 06/23/21 #20 tabs cholecalciferol (vitamin D3) 50 50 mcg PO DAILY #90 tabs 07/04/21 mcg (2,000 unit) tablet lorazepam 0.5 mg tablet 0.5 mg PO DAILY PRN anxiety 1 day 09/25/21 #2 tabs adult diapers pull-ups #240 ea 12/25/21 wheelchair Ht: 5'6 , Wt: 211 lb #1 ea 10/13/22 oxycodone-acetaminophen 5 mg-325 1 tab PO Q8H PRN pain (scale score 12/29/ mg tablet (Percocet) 4-6) 7 days #21 tabs cyclobenzaprine 5 mg tablet 5 mg PO TID PRN muscle pain 30 02/02/22 days #90 tabs acetaminophen 500 mg tablet 1,000 mg PO Q6H PRN fever or pain 03/22/22 (Tylenol Extra Strength) #20 tabs ibuprofen 400 mg tablet 400 mg PO TID PRN fever or pain 03/22/22 #30 tabs Allergies Allergy/AdvReac Type Severity Reaction Status Date / Time fentanyl [FENTANYL] Allergy Intermediate VOMITING Verified 03/22/22 05:39 Penicillins [PENICILLINS] Allergy Intermediate ANAPHYLAXIS Verified 03/22/22 05:39 sertraline [From ZOLOFT] Allergy Intermediate ANXIETY Verified 03/22/22 05:39 zolpidem [From AMBIEN] Allergy Intermediate suicidal Verified 03/22/22 05:39 attempt with zolpidem Review of Systems Review of Systems: Yes all other systems are reviewed and are negative [facility] Past Medical History [facility] Narrative: Social history: She denies tobacco, alcohol and drug use. Medical History Anxiety Bipolar disorder Carpal tunnel syndrome Constipation by delayed colonic transit Depression Hypovitaminosis D Left foot pain Polyarthralgia Right foot pain Surgical History History of appendectomy History of bunionectomy History of cholecystectomy History of hemorrhoidectomy History of right hip replacement Family History Family History Father Depression Prostate cancer Chronic mental illness Mother Diabetes Cancer Maternal Aunt Breast cancer Family/Other Chronic mental illness Other Mental health disorder Social History Social History Housing: House Alcohol intake: never Patient Tobacco Use Status: Never used Tobacco e-Cigarette/Vaping Use: Never Used Second Hand Smoke Exposure: No Substance Use Type: Marijuana Advance Directives: No service: No Current occupational status: disabled 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 General: Awake, alert, female patient, she is pleasant, cooperative in no distress, answers all questions appropriately HEENT: Head normal cephalic and atraumatic, pupils equal round reactive light sclera contact however normal, mouth revealed moist membranes Neck: Supple, the patient does have tenderness palpation of cervical vertebrae but she also has tenderness palpation of her trapezius muscles bilaterally she has full range of motion of her neck without any limitations. Chest: No chest wall tenderness Lungs: Clear to auscultation breath sounds symmetric bilaterally Heart: Regular rate rhythm, normal S1-S2 no murmurs rubs gallops Abdomen: Soft, nontender, normal at fossa Back: No CVA tenderness, no vertebral tender Extremities: Patient does have tenderness palpation of her proximal humerus as well tenderness palpation of her right humerus, there is no ecchymosis or significant soft tissue swelling she has limited range of motion of her shoulder secondary to pain. The patient has tenderness palpation over her right knee. Her extremities are neurovascular intact Neurologic exam is nonfocal Medications Administered Discontinued Medications Generic Name Dose Route Start Last Admin Trade Name Freq PRN Reason Stop Dose Admin Ibuprofen 400 mg 03/22/22 06:36 03/22/22 06:48 Ibuprofen 400 Mg Tablet PO 03/22/22 06:37 400 mg ONCE ONE Administration Medical Decision Making Medical Decision Making [facility] Narrative: 52-year-old female who presents emergency department for evaluation of a fall that occurred yesterday at 17:00 hours. She was at home and missed the last step in her home falling forward landing on her right knee and striking her right shoulder. Examination did reveal tenderness palpation of the proximal humerus as well as tenderness with palpation her humerus. She also has tenderness palpation of her right knee. She did not have significant head injury I do not think that she needs CT scan of the head or cervical spine. I did order right shoulder, right humerus and right knee x-rays. Her pain was treated with ibuprofen 400 mg orally. 0847: My independent interpretation of the patient's x-rays of her right shoulder, humerus and right knee revealed no acute fractures . Radiology reading was reviewed and they also agree there is no acute fractures. I did discuss this with the patient. Patient was started on ibuprofen and Tylenol. She was advised to use ice for the next 1-2 days, she was given printed and verbal instructions discharged home. Differential Diagnosis Differential diagnosis includes but is not limited to right shoulder fracture, right rotator cuff injury, right shoulder contusion, right humerus fracture, right knee fracture, right knee contusion Independent Interpretation I performed an independent interpretation of an: Plain X-Ray (Right knee, shoulder and humerus x-rays) Interpretation: My independent interpretation of these x-rays as no acute fracture Radiology Impression Discussion of test interpretation with radiology: I have reviewed the radiologist's reading. Discharge Plan Discharge Clinical Impression: Fall (on) (from) other stairs and steps, initial encounter Contusion of right shoulder Qualifiers: Encounter type: initial encounter Qualified Code(s): S40.011A - Contusion of right shoulder, initial encounter Contusion of knee, right Qualifiers: Encounter type: initial encounter Qualified Code(s): S80.01XA - Contusion of right knee, initial encounter Patient Disposition: Home, Self-Care Instructions: Contusion in Adults (ED) Prescriptions: New acetaminophen [Tylenol Extra Strength] 500 mg tablet 1,000 mg PO Q6H PRN (Reason: fever or pain) Qty: 20 0RF ibuprofen 400 mg tablet 400 mg PO TID PRN (Reason: fever or pain) Qty: 30 0RF No Action cholecalciferol (vitamin D3) 50 mcg (2,000 unit) tablet 50 mcg PO DAILY Qty: 90 0RF (DME) adult diapers pull-ups XXlarge See Rx Instructions .Route .MEDSUPPLY Qty: 240 6RF Rx Instructions: As directed (DME) wheelchair Ht: 5'6 , Wt: 211 lb See Rx Instructions .Route .MEDSUPPLY Qty: 1 0RF Rx Instructions: As directed lidocaine [Lidoderm] 5 % adhesive patch,medicated 1 patch topical DAILY MDD remove after 12 hours PRN (Reason: pain) Qty: 30 0RF Rx Instructions: leave on most painful area for up to 12 hrs quetiapine 400 mg tablet 400 mg PO BEDTIME oxcarbazepine 600 mg tablet 600 mg PO BID quetiapine 100 mg tablet 100 mg PO BEDTIME clonazepam 0.5 mg tablet 0.5 mg PO TID PRN (Reason: Anxiety) cyclobenzaprine 5 mg tablet 5 mg PO TID PRN (Reason: muscle pain) 30 Days Qty: 90 0RF duloxetine 60 mg capsule,delayed release(DR/EC) 60 mg PO DAILY nabumetone 500 mg tablet 500 mg PO BID Qty: 20 0RF tizanidine 2 mg tablet 2 mg PO BID PRN (Reason: muscle spasticity) Qty: 20 0RF oxycodone-acetaminophen [Percocet] 5-325 mg tablet 1 tab PO Q8H PRN (Reason: pain (scale score 4-6)) 7 Days Qty: 21 0RF Rx Instructions: Partial Fill upon patient request. lorazepam 0.5 mg tablet 0.5 mg PO DAILY PRN (Reason: anxiety) 1 Days Qty: 2 0RF Rx Instructions: take one tab 30 mins prior to procedure, take the 2nd tab as needed do not drive while taking this medication
[2022-03-22] MEDS: Ibuprofen 400 MG TABLET PO (06:48)
[2022-03-22 07:41] VITALS: BP 103/65; PULSE 74; RESP 18; TEMP 36.6; O2SAT 97
== END 2022-03-22 09:10 | disposition home or self-care (01) ==
PROVIDERS: Emergency Provider Emergency Medicine Emergency Medical Services; PCP Internal Medicine
DX: S40.011A Contusion of right shoulder, initial encounter (principal); S80.01XA Contusion of right knee, initial encounter; W10.9XXA Fall (on) (from) unspecified stairs and steps, initial encounter; M25.511 Pain in right shoulder; Y93.9 Activity, unspecified; Y92.9 Unspecified place or not applicable; Y99.9 Unspecified external cause status; Z79.899 Other long term (current) drug therapy
CPT/HCPCS: 73030; 73060; 73562; 99284

== ENCOUNTER 2022-04-08 06:43 | Outpatient (REF) | payer OTHER, SELFPAY ==
[2022-04-08 08:29] LABS: Alanine Aminotransferase 19 U/L (0-31); Albumin Level 4.2 g/dL (3.5-5.0); Alkaline Phosphatase 156 U/L (39-117); Anion Gap 12 (12-20); Aspartate Amino Transferase 19 U/L (5-31); Bilirubin Total 0.3 mg/dL (0.0-1.0); Blood Urea Nitrogen 9 mg/dL (9-16); Calcium 9.3 mg/dL (8.4-10.2); Carbon Dioxide 27 mmol/L (22-29); Chloride 104 mmol/L (96-108); Cholesterol 272 mg/dL; Estimated Glomerular Filt Rate > 60; Glucose Fasting 92 mg/dL (60-99); HDL Cholesterol 46 mg/dL; LDL Cholesterol Calculated 185 mg/dl; Potassium 4.4 mmol/L (3.3-5.1); Sodium 139 mmol/L (135-145); Total Protein 7.4 g/dL (6.5-8.0); Triglycerides 209 mg/dL
[2022-04-08 08:49] LABS: Free T4 (Free Thyroxine) 0.52 ng/dL (0.71-1.85); Thyroid Stimulating Hormone 2.77 uIU/mL (0.32-4.0)
== END 2022-04-08 06:44 | disposition home or self-care (01) ==
LOC: HO.LAB 06:43
PROVIDERS: PCP Internal Medicine; Visit Provider Internal Medicine
DX: Z00.00 Encounter for general adult medical examination without abnormal findings (principal); E04.9 Nontoxic goiter, unspecified
CPT/HCPCS: 36415; 80053; 80061; 84439; 84443

== ENCOUNTER 2022-07-30 08:20 | Outpatient (REF) | payer OTHER, SELFPAY ==
--- NOTE | ~2022-07-30 | XR_ITS ---
EXAMINATION: XR PELVIS CLINICAL INFORMATION: Pain. COMPARISON: Prior radiographs, most recently 10/12/2021. TECHNIQUE: 2 AP views of the pelvis are submitted. FINDINGS: There is bony demineralization. There is an intact right hip total arthroplasty, without hardware failure or periprosthetic fracture or loosening. There is moderate osteoarthritic change of the left hip, joint space narrowing and peripheral osteophyte formation. The left femoral head appears smooth. No fracture or dislocation. There is calcific station of the right sacrotuberous ligament. There are pelvic phleboliths. Orthopedic cages are noted at L5-S1. XR/XR pelvis 1-2V IMPRESSION: There is an intact right hip total arthroplasty. Moderate osteoarthritic change is seen of the left hip. No fracture or dislocation is seen.
== END 2022-07-30 08:21 | disposition home or self-care (01) ==
LOC: HO.HOSX 08:20
PROVIDERS: Visit Provider Orthopaedic Surgery
DX: M25.812 Other specified joint disorders, left shoulder (principal)
CPT/HCPCS: 20610; 72170; 99212; J1100

== ENCOUNTER → 2022-09-10 08:17 | Outpatient (BNVA) | payer OTHER, SELFPAY | PROVIDERS: Visit Provider Orthopaedic Surgery | DX: M25.812 Other specified joint disorders, left shoulder (principal) | CPT/HCPCS: 99212 ==

== ENCOUNTER 2022-10-16 14:31 | Outpatient (REF) | payer OTHER, SELFPAY ==
--- NOTE | ~2022-10-16 | MM_ITS ---
EXAMINATION: MM SCREENING DIGITAL BREAST TOMOSYNTHESIS, BILATERAL CLINICAL INFORMATION: Screening. Asymptomatic. The lifetime risk of breast cancer based on the Tyrer-Cuzick Model is 20.8%. COMPARISON: Mammography: This study is compared with prior exams dating back to 2015. TECHNIQUE: Digital breast tomosynthesis is performed in both the craniocaudal and mediolateral oblique views along with computer-aided detection (CAD). Synthesized 2D images are generated from the tomosynthesis. FINDINGS: The breasts are almost entirely fatty (ACR BI-RADS breast composition Category a). There are no significant masses, abnormal calcifications, or other abnormalities. MM/MM tomosynthesis screening BI IMPRESSION: No mammographic evidence of malignancy. ASSESSMENT: BI-RADS BI-RADS 1 - Negative RECOMMENDATION: Routine annual mammography screening. 1 year F/U This examination should not preclude the clinical evaluation of a suspicious palpable abnormality. This patient's information was entered into a reminder system with a target due date for their next mammogram.
== END 2022-10-16 14:32 | disposition home or self-care (01) ==
LOC: HO.MAMMO 14:31
PROVIDERS: PCP Internal Medicine; Visit Provider Internal Medicine
DX: Z12.31 Encounter for screening mammogram for malignant neoplasm of breast (principal)
CPT/HCPCS: 77063; 77067

== ENCOUNTER → 2022-10-16 15:00 | Outpatient (BNV) | payer OTHER, SELFPAY | PROVIDERS: PCP Internal Medicine; Visit Provider Radiology Diagnostic Radiology | DX: Z12.31 Encounter for screening mammogram for malignant neoplasm of breast (principal) | CPT/HCPCS: 77063; 77067 ==

== ENCOUNTER 2022-11-02 10:16 | Outpatient (AMB) | payer OTHER, SELFPAY ==
--- NOTE | 2022-11-02 10:47 | A.OFFVIS_ITS ---
Intake Intake Visit Reasons: OV - Left Shoulder Pain Intake Note: Cathy is a 52 year old right hand dominant female who presents today for a follow up of her left shoulder pain. Last Injection 07/30/22. Patient reports that she is having increase pain and is looking to repeat injection today. Patient reports that she is having increased pain in the posterior aspect of the right knee. This has been present for about 3 months now and has continued to worsen. She has increased pain going down stairs. Allergies fentanyl [FENTANYL] Allergy (Intermediate, Verified 07/30/22 13:31) VOMITING Penicillins [PENICILLINS] Allergy (Intermediate, Verified 07/30/22 13:31) ANAPHYLAXIS sertraline [From ZOLOFT] Allergy (Intermediate, Verified 07/30/22 13:31) ANXIETY zolpidem [From AMBIEN] Allergy (Intermediate, Verified 07/30/22 13:31) suicidal attempt with zolpidem HPI OV - Left Shoulder Pain HPI Details Cathy is a 52 year old woman who returns to discuss her left shoulder impingement. She was injected on 07/30/22, with good but short term relief, and sent for PT. She has been in [place] for the last few weeks, caring for her mother, and was performing shoulder exercises at home. She continues to have pain with daily and overhead activities, and worse at night. She says she wakes up with severe pain and stiffness in her shoulder, and has limited ROM throughout the day. She would like a repeat injection today. She says she has done some PT for her shoulder when she went for her right shoulder, but this was not the same . She also complains of pain in the back of her right knee, which has been present for ~3 months. She says her pain is worse with using stairs, especially descending stairs. She says she has fallen a few times due to this pain. She is S/P right RTC repair with SAD on 12/03/21. She reports a family Hx of her mother and multiple great-aunts having breast cancer, and she is concerned about developing cancer herself. [facility] Medical History Anxiety Bipolar disorder Carpal tunnel syndrome Constipation by delayed colonic transit Depression Hypovitaminosis D Left foot pain Polyarthralgia Right foot pain Surgical History History of appendectomy History of bunionectomy History of cholecystectomy History of hemorrhoidectomy History of right hip replacement History of surgery Family History Father Depression Prostate cancer Chronic mental illness Mother Diabetes Cancer Maternal Aunt Breast cancer Family/Other Chronic mental illness Other Mental health disorder Social History Housing: House Alcohol intake: never Patient Tobacco Use Status: Never used Tobacco e-Cigarette/Vaping Use: Never Used Second Hand Smoke Exposure: No Substance Use Type: Marijuana service: No Current occupational status: disabled 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 Cognitive needs: No Hearing needs: No Vision needs: Yes (glasses) Review of Systems Const All systems reviewed & are unremarkable except as noted in HPI and below Physical Exam Const General: no acute distress and alert Orientation/consciousness: patient oriented x3 HEENT Head: Yes normocephalic and Yes atraumatic Eyes EOM: EOMs intact bilaterally Resp Effort & Inspection: normal respiratory effort and able to speak in complete sentences Cardio Jugular venous distension: no JVD Skin General skin exam: turgor normal Rashes: no rashes Neuro General: patient oriented x3 Extrem Other: Left Shoulder: + H&N 90/130/45 TTP right knee medial joint knee +Alvarado's cyst Psych Appearance: grossly normal Affect: normal affect Attitude: cooperative Office Procedures Joint Injection/Drain Joint Injection/Drain Details: Injected 1 mL of Decadron and 3 mL 1% lidocaine and 3 mL of 0.25% Marcaine. Site was prepped using aseptic technique. Patient tolerated the procedure well. Primary Site: right knee Approach Used: anterolateral Coding 16689 - Large joint Procedure code (CPT) selection complete Results Reviewed Results Reviewed: 11/02/22 10:51 BUPivacaine MPF 0.25 % [Sensorcaine-MPF 0.25% 10 ML] 10 ml .ROUTE .STK-MED ONE Lidocaine HCl 2 % MPF [Xylocaine 2 % MPF] 5 ml .ROUTE .STK-MED ONE dexAMETHasone sod phosphate [Decadron] 4 mg .ROUTE .STK-MED ONE Assessment & Plan Assessment & Plan (1) Impingement of left shoulder: Code(s): M25.812 - Other specified joint disorders, left shoulder Plan: This is a 52 year old woman with left shoulder impingement. She has pain with daily activity, along with limited ROM due to stiffness. She found short term relief from a steroid injection on 07/30/22, and has been performing exercises at-home & while in [place]. I discussed her diagnosis and treatment options. I ordered an MRI of her left shoulder, and prescribed a dose of valium for her to take prior to the MRI. She will follow up when completed for review. (2) Synovial cyst of popliteal space [Alvarado], right knee: Code(s): M71.21 - Synovial cyst of popliteal space [Alvarado], right knee Plan Scribed for Chris Silvestre MD by Vinod Holland, medical collector, on 11/02/22 at 11:10 AM, EST. Orders: Orders MR shoulder LT wo con 11/02/22 M24.812 - Other specific joint derangements of left shoulder, not elsewhere classified Referrals Genetics Referral Z80.3 - Family history of malignant neoplasm of breast Coding Level of Care Code Est Pt Level 4 (64581) Diagnoses Impingement of left shoulder M25.812 Synovial cyst of popliteal space [Alvarado], right knee M71.21 CPT Codes Coding - 82582 Large joint: 30775 - Large joint ([id number])
== END 2022-11-02 11:09 | disposition home or self-care (01) ==
PROVIDERS: PCP Internal Medicine; Visit Provider Orthopaedic Surgery
DX: M25.812 Other specified joint disorders, left shoulder (principal); M71.21 Synovial cyst of popliteal space [Baker], right knee
CPT/HCPCS: 20610; 99214

== ENCOUNTER → 2022-11-02 10:16 | Outpatient (BNVA) | payer OTHER, SELFPAY | PROVIDERS: PCP Internal Medicine; Visit Provider Orthopaedic Surgery | DX: M71.21 Synovial cyst of popliteal space [Baker], right knee (principal); M24.812 Other specific joint derangements of left shoulder, not elsewhere classified; M25.50 Pain in unspecified joint | CPT/HCPCS: 20610; 99212; J1100 ==

== ENCOUNTER 2022-11-05 09:08 | Emergency (ER) | payer OTHER, SELFPAY ==
--- NOTE | ~2022-11-05 | CT_ITS ---
EXAMINATION: CT HEAD WITHOUT CONTRAST CLINICAL INFORMATION: Fall, with head strike. COMPARISON: CT scan of the head 10/12/2021. TECHNIQUE: Multidetector CT imaging of the head was obtained without the use of intravenous contrast. Coronal and sagittal reformatted images were generated at the technologist workstation. This CT examination was performed using dose optimization techniques as appropriate, variously including the following: *Automated exposure control *Adjustment of mA and/or kV according to patient size (this includes techniques or standardized protocols for targeted exams where dose is matched to indication/reason for exam; i.e. extremities or head) *Use of iterative reconstruction technique DLP: 718 mGy-cm. FINDINGS: There is no evidence of acute intracranial hemorrhage or territorial infarction. No abnormal mass-effect or midline shift is seen. [place] to white matter differentiation is well preserved. No extra-axial fluid collections are identified. There is slight asymmetry of the bodies of the lateral ventricles, unchanged and likely within normal limits of variation. The study redemonstrates a perivascular space in the left basal ganglia, unchanged. Overall, brain parenchymal attenuation appears normal. There are no acute osseous findings. There are degenerative changes of the bilateral temporomandibular joints. There are no large scalp contusions or hematomas. The mastoid air cells are well-aerated. The nasal septum is deviated to the left with a prominent left-sided bony nasal septal spur. There is mucoperiosteal thickening in the anterior left ethmoid air cells. CT/CT head/brain wo IV con IMPRESSION: 1. There are no acute bleeds or territorial infarcts. No masses are demonstrated.
--- NOTE | ~2022-11-05 | XR_ITS ---
EXAMINATION: XR RIBS, RIGHT, PA CHEST CLINICAL INFORMATION: Pain status post fall. COMPARISON: None available. TECHNIQUE: 3 views of the right ribs were obtained along with a PA view of the chest. A skin marker was placed over the right mid chest laterally. FINDINGS: Lungs are clear. No consolidation, pneumothorax, or pleural effusion. The cardiomediastinal silhouette and pulmonary vasculature are normal. Osseous structures are unremarkable. Ribs are intact. No fractures are identified. XR/XR ribs RT min 3V w CXR1V IMPRESSION: Unremarkable examination.
[2022-11-05 09:39] VITALS: BP 93/63; PULSE 73; RESP 12; TEMP 36.6; O2SAT 97; BMI 36.9
--- NOTE | 2022-11-05 10:12 | ED_ITS ---
HPI - Syncope General Chief Complaint: General Medical Stated Complaint: fainted yesterday body pain Time Seen by Provider: 11/05/22 10:09 Source: patient Mode of arrival: ambulatory Limitations: no limitations History of Present Illness HPI narrative: 52 yo female with hx of arthritis, bipolar, not on thinners or diuretics comes in with c/o poor liquid intake - she notes she doesn't drink enough water. She usually feels dizzy when she stands up. She denies any black or bloody stools, no vaginal bleeding, no CP/SOB. 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 She notes her BP have been low and any time she gets up she feels weak and dizzy. MD complaint: loss of consciousness and felt faint Onset (ago): day(s) (1) Duration of episode: 2 -: minutes(s) Prodromal symptoms: lightheaded Witnessed: No Context: standing up Injuries sustained associated with event: head, chest and back Current symptoms: headache and other (dizziness only when she stands) History: previous syncopal episode Treatments prior to arrival: none Related Data Home Medications Medication Instructions Recorded Confirmed clonazepam 0.5 mg tablet 0.5 mg PO TID PRN Anxiety 02/29/20 04/06/22 Previous Rx's Medication Instructions Recorded nabumetone 500 mg tablet 500 mg PO BID #20 tabs 06/23/21 tizanidine 2 mg tablet 2 mg PO BID PRN muscle spasticity 06/23/21 #20 tabs adult diapers pull-ups #240 ea 12/25/21 wheelchair Ht: 5'6 , Wt: 211 lb #1 ea 12/25/21 acetaminophen 500 mg tablet 1,000 mg PO Q6H PRN fever or pain 03/22/22 (Tylenol Extra Strength) #20 tabs ibuprofen 400 mg tablet 400 mg PO TID PRN fever or pain 03/22/22 #30 tabs clonazepam 1 mg tablet 1 mg PO BID PRN anxiety 30 days 04/06/22 #60 tabs clotrimazole-betamethasone 1 1 appl topical BID 30 days #45 04/06/22 %-0.05 % topical cream grams cyclobenzaprine 5 mg tablet 5 mg PO TID PRN muscle pain 30 04/06/22 days #90 tabs oxcarbazepine 600 mg tablet 600 mg PO BID 90 days #180 tabs 04/06/22 duloxetine 60 mg capsule,delayed 60 mg PO DAILY 30 days #30 caps 04/29/22 release underpads (Bed Underpads) #100 ea 08/05/22 walker (Ultra-Light Rollator misc) #1 ea 08/05/22 lorazepam 0.5 mg tablet 0.5 mg PO DAILY PRN anxiety 1 day 10/09/22 #2 tabs quetiapine 100 mg tablet 100 mg PO BEDTIME 30 days #30 tabs 10/09/22 quetiapine 400 mg tablet 400 mg PO BEDTIME 30 days #30 tabs 10/09/22 Allergies Allergy/AdvReac Type Severity Reaction Status Date / Time fentanyl [FENTANYL] Allergy Intermediate VOMITING Verified 07/30/22 13:31 Penicillins [PENICILLINS] Allergy Intermediate ANAPHYLAXIS Verified 07/30/22 13:31 sertraline [From ZOLOFT] Allergy Intermediate ANXIETY Verified 07/30/22 13:31 zolpidem [From AMBIEN] Allergy Intermediate suicidal Verified 07/30/22 13:31 attempt with zolpidem Review of Systems Review of Systems: Constitutional : No Fever, No Chills, No Fatigue Cardiovascular : No Chest Pain, No SOB, No Dyspnea on Exertion, pos rib pain Respiratory : No Cough, No Sputum Gastrointestinal : No Nausea, No Vomiting, No Diarrhea, No abdominal Pain Genitourinary : No Dysuria, No Urinary Frequency, No Hematuria, Musculoskeletal : pos joint pain, No Myalgias, No Joint Swelling Skin : No Skin Lesions, No rash Neuro : No Weakness, No Numbness, pos Dizziness, positive Headache Psych : No Anxiety/Panic, No Depression All other systems reviewed and are negative [facility] Past Medical History Attestation statement: The following information was validated with the patient. Medical History Anxiety Bipolar disorder Carpal tunnel syndrome Constipation by delayed colonic transit Depression Hypovitaminosis D Left foot pain Polyarthralgia Right foot pain Surgical History History of appendectomy History of bunionectomy History of cholecystectomy History of hemorrhoidectomy History of right hip replacement History of surgery Family History Family History Father Depression Prostate cancer Chronic mental illness Mother Diabetes Cancer Maternal Aunt Breast cancer Family/Other Chronic mental illness Other Mental health disorder Social History Social History Housing: House Alcohol intake: never Patient Tobacco Use Status: Never used Tobacco e-Cigarette/Vaping Use: Never Used Second Hand Smoke Exposure: No Substance Use Type: Marijuana Advance Directives: No Advance Directives Information Provided: Yes service: No Current occupational status: disabled 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 Oriented X3. No acute distress. Eyes: Pupils equal, round and reactive to light. ENT: Pharynx normal. Neck: Normal inspection. Neck supple. no midline ttp CVS: Normal heart rate and rhythm. Pulses normal. Chest: R posterior rib ttp Back: no midline ttp Respiratory: No respiratory distress. Breath sounds normal. Abdomen: Soft and nontender. Skin: Skin warm and dry. Normal skin color. Normal skin turgor. Extremities: No lower extremity edema. No calf ttp full ROM of both arms and legs no pain with loading Neuro: Oriented X 3. No motor deficit. No sensory deficit. Course Course Course Narrative: ortho neg, feels better work up negative stable for DC Medications Administered Discontinued Medications Generic Name Dose Route Start Last Admin Trade Name Freq PRN Reason Stop Dose Admin Sodium Chloride 1,000 mls @ 999 mls/hr 11/05/22 10:30 11/05/22 13:39 Ns IVCONT 11/05/22 11:30 Infused .Q1H1M DOM Infusion Ondansetron HCl 4 mg 11/05/22 10:18 11/05/22 10:43 Ondansetron Odt 4 Mg Tab.Rapdis TRANSLINGU 11/05/22 10:19 4 mg ONCE ONE Administration Oxycodone HCl 5 mg 11/05/22 10:18 11/05/22 10:43 Oxycodone Hcl Immed Release 5 Mg Tablet PO 11/05/22 10:19 5 mg ONCE ONE Administration Medical Decision Making Medical Decision Making [facility] Narrative: 52 yo female with hx of arthritis, bipolar, not on thinners or diuretics comes in with c/o poor liquid intake here with c/o dizziness when standing and had syncopal episode yesterday denies any GIB or vaginal bleeding - but will send off CBC for anemia. she admits to poor liquid PO intake and symptoms only present when she stands suspect dehydration and orthostatic hypotension - she has no CP/SOB to suggest ACS or VTE. She has no signs of fracture in extremities. Will obtain CT head given headache post fall to rule out ICH, IVF ordered, EKG though no CP so ACS unlikely. Differential Diagnosis Differential Diagnoses: The differential diagnosis associated with the presentation includes anemia, dehydration, orthostatic hypotension Admission/Observation Consideration of admission/observation: Escalation of care including admission/observation considered work up negative, ortho negative feels better wants to go home Lab Data [facility] Lab Attestation statement: I reviewed the patient's lab results. 11/05/22 10:38 11/05/22 10:38 Labs: Lab Results 11/05/22 11/05/22 11/05/22 Range/Units 10:38 10:38 10:38 WBC 7.3 (4.8-10.8) X10*3/uL RBC 4.36 (4.20-5.50) X10*6/uL Hgb 13.6 (12.0-16.0) g/dl Hct 41.1 (37.0-47.0) % MCV 94.3 (80.0-98.0) fL MCH 31.2 (27.0-33.0) pg MCHC 33.1 (31.0-35.0) g/dl RDW 12.9 (11.0-16.0) % Plt Count 207 (160-400) X10*3/uL MPV 8.7 L (9.4-12.3) fL Immature Gran % (Auto) 0.3 (0.0-0.4) % Neut % (Auto) 49.7 (45-73) % Lymph % (Auto) 33.9 (20-40) % [place] % (Auto) 7.7 (2-11) % Eos % (Auto) 7.9 H (0-4) % Baso % (Auto) 0.5 (0-2) % Lymph # (Auto) 2.5 (1.2-4.9) X10*3/uL [place] # (Auto) 0.6 (0.1-1.2) X10*3/uL Eos # (Auto) 0.6 H (0.0-0.4) X10*3/uL Baso # (Auto) 0.0 (0.0-0.2) X10*3/uL Abs Immat Gran (auto) 0.02 (0.00-0.03) X10*3/uL Absolute Neuts (auto) 3.6 (2.0-8.3) x10*3/uL Absolute Nucleated RBC 0.000 (0.0-0.012) X10*3/uL Nucleated RBC % (auto) 0.0 (0.0-0.2) /100WBC Sodium 140 (135-145) mmol/L Potassium 3.8 (3.3-5.1) mmol/L Chloride 108 (96-108) mmol/L Carbon Dioxide 26 (22-29) mmol/L Anion Gap 10 L (12-20) BUN 10 (9-16) mg/dL Creatinine 0.80 (0.5-1.4) mg/dL Estim Creat Clear Calc 94.5 Estimated GFR > 60 Random Glucose 84 (60-115) mg/dL Calcium 9.2 (8.4-10.2) mg/dL Magnesium 2.2 (1.6-2.6) mg/dL Total Bilirubin 0.2 (0.0-1.0) mg/dL Direct Bilirubin < 0.2 (0.0-0.5) mg/dL AST 20 (5-31) U/L ALT 17 (0-31) U/L Alkaline Phosphatase 140 H (39-117) U/L Troponin I High Sens < 2.7 (<3.5-17.0) ng/L Total Protein 7.2 (6.5-8.0) g/dL Albumin 3.8 (3.5-5.0) g/dL Independent Interpretation I performed an independent interpretation of an: EKG, Plain X-Ray and CT Scan (no ICH) Interpretation: Rate: 72 Rhythm: NSR [place]: normal Normal P waves. Normal OLENA. Normal QRS complex. ST T wave : normal no LILA qTC: normal prior studies: no acute ischemia The study has been interpreted contemporaneously by me. . Radiology Impression Discussion of test interpretation with radiology: I have reviewed the radiologist's reading. Independent Historian Clinical information obtained from an independent historian. History obtained from or confirmed by: Spouse External Record Review External record reviewed: Inpatient record Discharge Plan Discharge Clinical Impression: Syncope Qualifiers: Syncope type: unspecified Qualified Code(s): R55 - Syncope and collapse Head injury Qualifiers: Encounter type: initial encounter Qualified Code(s): S09.90XA - Unspecified injury of head, initial encounter Patient Disposition: Home, Self-Care Instructions: Head Injury (ED), Syncope (ED) Additional Instructions: you need to drink 40 ounce of fluid a day. stay hydrated. return for chest pain, worsening symptoms, fainting, confusion, vomiting or any other concerns. your CT head labs and rib films were normal. you need to sit up and wait 30 seconds before standing. please follow up with your doctor about your symptoms Prescriptions: No Action (DME) adult diapers pull-ups XXlarge See Rx Instructions .Route .MEDSUPPLY Qty: 240 6RF Rx Instructions: As directed (DME) wheelchair Ht: 5'6 , Wt: 211 lb See Rx Instructions .Route .MEDSUPPLY Qty: 1 0RF Rx Instructions: As directed duloxetine 60 mg capsule,delayed release(DR/EC) 60 mg PO DAILY 30 Days Qty: 30 0RF (DME) Ultra-Light Rollator Misc See Rx Instructions .Route Qty: 1 0RF Rx Instructions: As directed (DME) underpads [Bed Underpads] Pad See Rx Instructions .Route Qty: 100 11RF Rx Instructions: As directed lorazepam 0.5 mg tablet 0.5 mg PO DAILY PRN (Reason: anxiety) 1 Days Qty: 2 0RF Rx Instructions: take one tab 30 mins prior to procedure, take the 2nd tab as needed do not drive while taking this medication quetiapine 400 mg tablet 400 mg PO BEDTIME 30 Days Qty: 30 0RF quetiapine 100 mg tablet 100 mg PO BEDTIME 30 Days Qty: 30 0RF acetaminophen [Tylenol Extra Strength] 500 mg tablet 1,000 mg PO Q6H PRN (Reason: fever or pain) Qty: 20 0RF ibuprofen 400 mg tablet 400 mg PO TID PRN (Reason: fever or pain) Qty: 30 0RF clonazepam 0.5 mg tablet 0.5 mg PO TID PRN (Reason: Anxiety) nabumetone 500 mg tablet 500 mg PO BID Qty: 20 0RF tizanidine 2 mg tablet 2 mg PO BID PRN (Reason: muscle spasticity) Qty: 20 0RF cyclobenzaprine 5 mg tablet 5 mg PO TID PRN (Reason: muscle pain) 30 Days Qty: 90 0RF clotrimazole-betamethasone 1-0.05 % cream 1 appl topical BID 30 Days Qty: 45 1RF oxcarbazepine 600 mg tablet 600 mg PO BID 90 Days Qty: 180 1RF clonazepam 1 mg tablet 1 mg PO BID PRN (Reason: anxiety) 30 Days Qty: 60 0RF
--- NOTE | 2022-11-05 10:19 | ECG_ITS ---
Test Reason : syncope Blood Pressure : / mmHG Vent. Rate : 073 BPM Atrial Rate : 073 BPM P-R Int : 170 ms QRS Dur : 084 ms QT Int : 398 ms P-R-T Axes : 027 030 021 degrees QTc Int : 438 ms Normal sinus rhythm Nonspecific T wave abnormality Abnormal ECG When compared with ECG of 12-OCT-2021 20:05, Nonspecific T wave abnormality now evident in Lateral leads Heart rate has increased Referred By: Cristy Jim Electronically Signed By:CHRISTEL PIÑA
[2022-11-05 10:30] VITALS: BP 102/60; PULSE 71
[2022-11-05 10:31] VITALS: BP 99/62; PULSE 73
[2022-11-05 10:32] VITALS: BP 95/57; PULSE 78
[2022-11-05 10:41] LABS: MANUAL DIFF FLAG NO
[2022-11-05] MEDS: 0.9 % Sodium Chloride 1,000 ML 999 ML IVCONT (10:43)
[2022-11-05] MEDS: oxyCODONE HCl Immed Release 5 MG TABLET PO (10:43)
[2022-11-05] MEDS: Ondansetron ODT 4 MG TAB.RAPDIS TRANSLINGU (10:43)
[2022-11-05 10:45] LABS: Basophils Percent Auto 0.5 % (0-2); Eosinophils Absolute Auto 0.6 X10*3/uL (0.0-0.4); Eosinophils Percent Auto 7.9 % (0-4); Hematocrit 41.1 % (37.0-47.0); Hemoglobin 13.6 g/dl (12.0-16.0); Imm Gran Abs Auto 0.02 X10*3/uL (0.00-0.03); Imm Gran Pct Auto 0.3 % (0.0-0.4); Lymphocytes Absolute Auto 2.5 X10*3/uL (1.2-4.9); Lymphocytes Percent Auto 33.9 % (20-40); Mean Corpuscular HGB Conc 33.1 g/dl (31.0-35.0); Mean Corpuscular Hemoglobin 31.2 pg (27.0-33.0); Mean Corpuscular Volume 94.3 fL (80.0-98.0); Mean Platelet Volume 8.7 fL (9.4-12.3); Monocytes Absolute Auto 0.6 X10*3/uL (0.1-1.2); Monocytes Percent Auto 7.7 % (2-11); Neutrophils Absolute Auto 3.6 x10*3/uL (2.0-8.3); Neutrophils Percent Auto 49.7 % (45-73); Platelet Count 207 X10*3/uL (160-400); Red Blood Count 4.36 X10*6/uL (4.20-5.50); Red Cell Distribution Width 12.9 % (11.0-16.0); White Blood Count 7.3 X10*3/uL (4.8-10.8)
[2022-11-05 11:06] LABS: Alanine Aminotransferase 17 U/L (0-31); Albumin Level 3.8 g/dL (3.5-5.0); Alkaline Phosphatase 140 U/L (39-117); Anion Gap 10 (12-20); Aspartate Amino Transferase 20 U/L (5-31); Bilirubin Direct < 0.2 mg/dL (0.0-0.5); Bilirubin Total 0.2 mg/dL (0.0-1.0); Blood Urea Nitrogen 10 mg/dL (9-16); Calcium 9.2 mg/dL (8.4-10.2); Carbon Dioxide 26 mmol/L (22-29); Chloride 108 mmol/L (96-108); Creatinine Clr Calc Pharmacy 94.5; Estimated Glomerular Filt Rate > 60; Glucose Random 84 mg/dL (60-115); Magnesium 2.2 mg/dL (1.6-2.6); Potassium 3.8 mmol/L (3.3-5.1); Sodium 140 mmol/L (135-145); Total Protein 7.2 g/dL (6.5-8.0)
[2022-11-05 11:11] LABS: Troponin-I High Sensitivity < 2.7 ng/L (<3.5-17.0)
--- NOTE | 2022-11-05 11:35 | PC.NURSE ---
patient resting in bed, awake and alert able to make needs known.
[2022-11-05 12:24] VITALS: BP 104/62; PULSE 64; RESP 14; TEMP 36.7; O2SAT 97
--- NOTE | 2022-11-05 13:40 | PC.NURSE ---
patient sitting up in bed, awake and alert, well appearing
== END 2022-11-05 13:55 | disposition home or self-care (01) ==
PROVIDERS: Emergency Provider Emergency Medicine; PCP Internal Medicine
DX: R55 Syncope and collapse (principal); S09.90XA Unspecified injury of head, initial encounter; W07.XXXA Fall from chair, initial encounter; Y93.9 Activity, unspecified; Y92.039 Unspecified place in apartment as the place of occurrence of the external cause; Y99.9 Unspecified external cause status
CPT/HCPCS: 36415; 70450; 71101; 80048; 80076; 83735; 84484; 85025; 93005; 96360; 96361; 99284; 99285

== ENCOUNTER 2022-11-18 13:19 | Outpatient (AMB) | payer OTHER, SELFPAY ==
--- NOTE | 2022-11-18 13:20 | MHC.PC.OV ---
Vital Signs 11/18/22 13:37 Height 5 ft 5 in Weight 213 lb BMI 35.4 BP 102/68 Blood Pressure Location Lt brachial Position Sitting Respiration 16 Pulse 94 Pulse Source Pulse Oximeter Pulse Oximetry (%) 96 Oxygen Delivery Method Room Air Int[place] [facility] Intake Note: Patient is here to follow-up after a visit the [place] [facility] [place] Syncope and collapse. Consumer Experience Consultant Required: No Accompanied by: Self / Same As Patient Allergies fentanyl [FENTANYL] Allergy (Intermediate, Verified 11/18/22 14:13) VOMITING Penicillins [PENICILLINS] Allergy (Intermediate, Verified 11/18/22 14:13) ANAPHYLAXIS sertraline [From ZOLOFT] Allergy (Intermediate, Verified 11/18/22 14:13) ANXIETY zolpidem [From AMBIEN] Allergy (Intermediate, Verified 11/18/22 14:13) suicidal attempt with zolpidem Medication List - Last Reconciled 11/18/22 by Abilio Reese PA-C acetaminophen (Tylenol Extra Strength) 1,000 mg (2 x 500 mg) PO Q6H PRN [adult diapers pull-ups As directed] clonazepam 0.5 mg PO TID PRN clonazepam 1 mg PO BID PRN 30 days clotrimazole-betamethasone 1-0.05 % 1 appl topical BID 30 days cyclobenzaprine 5 mg PO TID PRN 30 days duloxetine 60 mg PO DAILY 30 days ibuprofen 400 mg PO TID PRN lorazepam 0.5 mg PO DAILY PRN 1 day nabumetone 500 mg PO BID oxcarbazepine 150 mg PO BID oxcarbazepine 600 mg PO BID 90 days prazosin 1 mg PO BEDTIME quetiapine 400 mg PO BEDTIME 30 days quetiapine 0 mg PO quetiapine 100 mg PO BEDTIME 30 days tizanidine 2 mg PO BID PRN underpads (Bed Underpads) As directed walker (Ultra-Light Rollator misc) As directed [wheelchair Ht: 5'6 , Wt: 211 lb As directed] Tobacco use date assessed: 04/06/22 Dental Screening Dental Screen Date: 11/18/22 Did you have a dental visit in the last 12 months?: No Did you have a dental problem in the last 6 months where you did not have access to dental care?: No Was dental information given to patient?: Patient has dentist [place] [facility] [facility] Details Patient is a 52-year-old female here today for a ER follow-up visit. She had a syncopal episode resulting in a fall injuring her ribs and hitting her head. CT of head without intracranial bleed, x-ray ribs normal. It is unclear the cause of her syncopal episode. She does report she may be dehydrated and could be related to her high doses of psychiatric medications she takes at night. She reports that 1 of her fall she did injure her right knee and would like an x-ray of this. She also reports she will be vacationing in [place] for the next month and needs refill on her psychiatric medications as she has not been able to get a hold of her psychiatrist. [facility] Medical History Anxiety Bipolar disorder Carpal tunnel syndrome Constipation by delayed colonic transit Depression Hypovitaminosis D Left foot pain Polyarthralgia Right foot pain Surgical History History of surgery History of right hip replacement History of hemorrhoidectomy History of bunionectomy History of cholecystectomy History of appendectomy Family History Father Depression Prostate cancer Chronic mental illness Mother Diabetes Cancer Maternal Aunt Breast cancer Family/Other Chronic mental illness Other Mental health disorder Social History Housing: House Alcohol intake: never Patient Tobacco Use Status: Never used Tobacco e-Cigarette/Vaping Use: Never Used Second Hand Smoke Exposure: No Substance Use Type: Marijuana service: No Current occupational status: disabled 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 Tai Romero, Rochelle London, Renny Scales and colleagues, with an educational emily from [employer]. Review of Systems Const Denies headache(s) Eyes Denies loss of vision ENT Denies vertigo, Denies dizziness, Denies headache(s) and Denies sore throat Card Denies chest pain, Denies leg edema and Denies lightheadedness Resp Denies cough, Denies hemoptysis and Denies wheezing GI Denies abdominal pain, Denies melena, Denies constipation, Denies diarrhea and Denies vomiting Denies urinary frequency, Denies dysuria and Denies urinary urgency Musc Denies arthralgias, Denies joint swelling, Denies numbness and Denies tingling Neuro Denies Abnormal speech present, Denies behavioral changes, Denies vertigo, Denies dizziness, Denies headache(s), Denies loss of vision, Denies memory loss, Denies numbness and Denies tingling Psych Denies anxiety, Denies behavioral changes, Denies depression, Denies memory loss and Denies panic attacks Mian/Lymph Denies easy bleeding and Denies easy bruising Aller/Immun Denies wheezing Physical exam (Primary Care) Vital Signs: Last Vital Signs Pulse 94 11/18/22 13:37 Resp 16 11/18/22 13:37 BP 102/68 11/18/22 13:37 Pulse Ox 96 11/18/22 13:37 Oxygen Delivery Method Room Air 11/18/22 13:37 BMI result Body Mass Index 35.4 Tobacco/Smoking Status: Tobacco use Status Tobacco use date assessed 04/06/22 11/18/22 13:20 Patient Tobacco Use Status Never used Tobacco 11/18/22 13:20 e-Cigarette/Vaping Use Never Used 11/18/22 13:20 Thrive Assessment: Date of Thrive Assessment Date Thrive assessed 04/06/22 11/18/22 13:20 Const General: healthy appearing, no acute distress, alert and awake Nutritional Appearance: well nourished Orientation/consciousness: oriented to person, oriented to place and oriented to time HENMT Ears: TM's normal bilaterally General nose exam: Normal nasal mucous membranes and turbinates present Eyes Conjunctivae: conjunctivae normal Sclerae: sclerae normal Pupils: Equal, round and reactive pupils present Neck Neck: Yes no lymphadenopathy and Yes no JVD Thyroid: Thyroid normal Carotids: no bruits Resp Effort & Inspection: normal respiratory effort and not tachypneic Auscultation: no crackles, no rales, no rhonchi and no wheezes Cardio Rate: regular rate Rhythm: regular rhythm Heart sounds: no murmurs and normal S1 and S2 GI Palpation (GI): Soft to palpation, nontender, no hepatomegaly and no splenomegaly Auscultation: normal bowel sounds Skin General skin exam: no rashes or lesions noted and dry skin Neuro General: oriented to person, oriented to place and oriented to time Cranial nerves: Yes Equal, round and reactive pupils present Speech: No Abnormal speech present Gait exam (Neuro): Normal gait present Motor exam (neuro): no tremor noted Extrem Right upper extremity: full ROM Left upper extremity: full ROM Right lower extremity: full ROM; no edema Left lower extremity: full ROM; no edema Psych Mental Status: mental status grossly normal Speech and movement: Normal speech and movement present Affect: normal affect Attitude: cooperative Thought process: Normal thought process present Assessment and Plan Assessment & Plan (1) Syncope: Code(s): R55 - Syncope and collapse Qualifiers: Syncope type: unspecified Qualified Code(s): R55 - Syncope and collapse Plan: Unclear etiology to patient's syncopal episodes. Likely dehydration as she does report feeling a little bit dizzy when standing up. Blood pressure was slightly low while in the ER. Also on multiple high doses of mental health medications that she takes at night which may be contributory. Clinical history does not seem to be consistent with seizure. Though will consider EEG of continues to have syncopal episodesc. Advised increased fluid intake and take time going from sitting to standing position. (2) Frequent falls: Code(s): R29.6 - Repeated falls (3) Right knee pain: Code(s): M25.561 - Pain in right knee Qualifiers: Chronicity: chronic Qualified Code(s): M25.561 - Pain in right knee; G89.29 - Other chronic pain Plan: Patient reports having right knee pain since her falls. Will get x-ray of her right knee to evaluate for osteoarthritis Orders: Orders XR knee RT 3V 11/18/22 G89.29 - Other chronic pain, M25.561 - Pain in right knee Medications: New meloxicam 15 mg PO DAILY 15 days 15 tabs 0RF G89.29 - Other chronic pain, M25.561 - Pain in right knee oxcarbazepine 150 mg PO BID 30 days 60 tabs 0RF F31.9 - Bipolar disorder, unspecified Changed From oxcarbazepine 600 mg PO BID 90 days 180 tabs 1RF F31.9 - Bipolar disorder, unspecified To oxcarbazepine 600 mg PO BID 30 days 60 tabs 0RF F31.9 - Bipolar disorder, unspecified Refilled quetiapine 400 mg PO BEDTIME 30 days 30 tabs 0RF F31.9 - Bipolar disorder, unspecified quetiapine 100 mg PO BEDTIME 30 days 30 tabs 0RF F31.9 - Bipolar disorder, unspecified duloxetine 60 mg PO DAILY 30 days 30 caps 0RF F31.9 - Bipolar disorder, unspecified Discontinued nabumetone Discontinued Reason: Doctor's Order 500 mg PO BID 20 tabs 0RF On Hold ibuprofen Hold Comment: Doctor's Order 400 mg PO TID PRN 30 tabs 0RF fever or pain Coding Level of Care Code Est Pt Level 4 (36822) Diagnoses Syncope R55 Syncope type: unspecified Frequent falls R29.6 Chronic pain of right knee M25.561; G89.29 Chronicity: chronic
[2022-11-18 13:37] VITALS: BP 102/68; PULSE 94; RESP 16; O2SAT 96; BMI 35.4
== END 2022-11-18 14:29 | disposition home or self-care (01) ==
PROVIDERS: PCP Internal Medicine; Visit Provider Physician Assistant
DX: R55 Syncope and collapse (principal); R29.6 Repeated falls; M25.561 Pain in right knee; G89.29 Other chronic pain
CPT/HCPCS: 99214

== ENCOUNTER 2022-11-20 08:56 | Outpatient (REF) | payer OTHER, SELFPAY ==
--- NOTE | ~2022-11-20 | XR_ITS ---
EXAMINATION: XR KNEE, RIGHT CLINICAL INFORMATION: Pain. COMPARISON: Radiographs dated 03/22/2022. TECHNIQUE: Frontal, lateral and axial views of the right knee were submitted. FINDINGS: Bony alignment and mineralization are normal. The lateral, medial and patellofemoral joint space compartments are well-maintained. There is very mild tricompartment peripheral osteophyte formation. No fracture or dislocation is seen. Small enthesophytes arise from the patella at the quadriceps and patellar tendon insertions. There is a trace joint effusion. No foreign body is seen. XR/XR knee RT 3V IMPRESSION: 1. There is very mild tricompartment osteoarthritic change. 2. There is a trace joint effusion. 3. No fracture or dislocation is seen.
== END 2022-11-20 08:57 | disposition home or self-care (01) ==
LOC: HO.XRAY 08:56
PROVIDERS: PCP Physician Assistant; Visit Provider Physician Assistant
DX: M25.561 Pain in right knee (principal); G89.29 Other chronic pain
CPT/HCPCS: 73562

== ENCOUNTER 2022-12-25 10:15 | Outpatient (AMB) | payer OTHER, SELFPAY ==
[2022-12-25 11:37] VITALS: BMI 35.4
--- NOTE | 2022-12-25 11:37 | MHC.OFFVIS ---
Intake Vital Signs 12/25/22 11:37 Height 5 ft 5 in Weight 213 lb BMI 35.4 Intake Visit Reasons: OV - Right Knee - MRI 01/06/23 Intake Note: Cathy is a 52 year old female who presents today for a follow up of her right knee. Patient reports multiple falls. Last injection was done on 11/02/22. MRI is booked for 01/06/23. Allergies fentanyl [FENTANYL] Allergy (Intermediate, Verified 11/18/22 14:13) VOMITING Penicillins [PENICILLINS] Allergy (Intermediate, Verified 11/18/22 14:13) ANAPHYLAXIS sertraline [From ZOLOFT] Allergy (Intermediate, Verified 11/18/22 14:13) ANXIETY zolpidem [From AMBIEN] Allergy (Intermediate, Verified 11/18/22 14:13) suicidal attempt with zolpidem HPI OV - Right Knee - MRI 01/06/23 HPI Details Cathy is a 52 year old woman who returns with complaints of worsening right knee pain. She complains of pain primarily in the back of her right knee, which has been present for several months. She says her pain is worse with using stairs, especially descending stairs. She says she has fallen a few times due to this pain, and has an MRI scheduled for 01/06/23. Her right knee was injected on 11/02/22, with [ ] relief. She also complains of left shoulder pain. She continues to have pain with daily and overhead activities, and worse at night. She says she wakes up with severe pain and stiffness in her shoulder, and has limited ROM throughout the day. She was injected on 07/30/22, with good but short term relief, and has completed PT which was somewhat helpful. A shoulder MRI was ordered at her last appointment but was not completed. She is S/P right RTC repair with SAD on 12/03/21. [facility] Medical History Anxiety Bipolar disorder Carpal tunnel syndrome Constipation by delayed colonic transit Depression Hypovitaminosis D Left foot pain Polyarthralgia Right foot pain Surgical History History of surgery History of right hip replacement History of hemorrhoidectomy History of bunionectomy History of cholecystectomy History of appendectomy Family History Father Depression Prostate cancer Chronic mental illness Mother Diabetes Cancer Maternal Aunt Breast cancer Family/Other Chronic mental illness Other Mental health disorder Social History Housing: House Alcohol intake: never Patient Tobacco Use Status: Never used Tobacco e-Cigarette/Vaping Use: Never Used Second Hand Smoke Exposure: No Substance Use Type: Marijuana service: No Current occupational status: disabled 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 Cognitive needs: No Hearing needs: No Vision needs: Yes (glasses) Review of Systems Const All systems reviewed & are unremarkable except as noted in HPI and below Physical Exam Vital Signs: BMI result Body Mass Index 35.4 Const General: no acute distress, alert and awake Orientation/consciousness: patient oriented x3 HEENT Head: Yes normocephalic and Yes atraumatic Eyes EOM: EOMs intact bilaterally Resp Effort & Inspection: normal respiratory effort and able to speak in complete sentences Cardio Jugular venous distension: no JVD Skin General skin exam: turgor normal Rashes: no rashes Neuro General: patient oriented x3 Extrem Other: Left Shoulder: + H&N 90/130/45 TTP right knee medial joint knee +Alvarado's cyst Psych Appearance: grossly normal Affect: normal affect Attitude: cooperative Assessment & Plan Assessment & Plan (1) Synovial cyst of popliteal space [Alvarado], right knee: Code(s): M71.21 - Synovial cyst of popliteal space [Alvarado], right knee Plan: This is a 52 year old woman with right knee Alvarado's cyst. She has pain with daily activity and a hx of multiple falls. She has an MRI scheduled for 01/06/23. She found short term relief from a steroid injection on 11/02/22. She will follow up when her MRI is completed for review. (2) Impingement of left shoulder: Code(s): M25.812 - Other specified joint disorders, left shoulder Plan: This is a 52 year old woman with left shoulder impingement. She has pain with daily activity, along with limited ROM due to stiffness. She found short term relief from a steroid injection on 07/30/22, and some relief from PT and at-home exercises I discussed her diagnosis and treatment options. I ordered a repeat course of PT. Plan Scribed for Chris Silvestre MD by Vinod Holland, electromedical service engineer, on 12/25/22 at 12:10 PM, EST. Orders: Orders PT Evaluation and Treatment Today M25.812 - Other specified joint disorders, left shoulder Coding Level of Care Code Est Pt Level 4 (47743) Diagnoses Synovial cyst of popliteal space [Alvarado], right knee M71.21 Impingement of left shoulder M25.812
== END 2022-12-25 12:13 | disposition home or self-care (01) ==
PROVIDERS: PCP Physician Assistant; Visit Provider Orthopaedic Surgery
DX: M71.21 Synovial cyst of popliteal space [Baker], right knee (principal); M25.812 Other specified joint disorders, left shoulder
CPT/HCPCS: 99213

== ENCOUNTER → 2022-12-25 10:15 | Outpatient (BNVA) | payer OTHER, SELFPAY | PROVIDERS: PCP Physician Assistant; Visit Provider Orthopaedic Surgery | DX: M71.21 Synovial cyst of popliteal space [Baker], right knee (principal); M25.812 Other specified joint disorders, left shoulder | CPT/HCPCS: 99212 ==

== ENCOUNTER 2023-01-04 08:24 | Outpatient (REF) | payer OTHER, SELFPAY ==
[2023-01-04 09:07] LABS: MANUAL DIFF FLAG NO
[2023-01-04 09:40] LABS: Basophils Absolute Auto 0.1 X10*3/uL (0.0-0.2); Eosinophils Absolute Auto 0.5 X10*3/uL (0.0-0.4); Eosinophils Percent Auto 7.5 % (0-4); Hematocrit 45.4 % (37.0-47.0); Hemoglobin 14.7 g/dl (12.0-16.0); Imm Gran Abs Auto 0.01 X10*3/uL (0.00-0.03); Imm Gran Pct Auto 0.1 % (0.0-0.4); Lymphocytes Absolute Auto 2.2 X10*3/uL (1.2-4.9); Lymphocytes Percent Auto 30.6 % (20-40); Mean Corpuscular HGB Conc 32.4 g/dl (31.0-35.0); Mean Corpuscular Hemoglobin 30.8 pg (27.0-33.0); Mean Corpuscular Volume 95.2 fL (80.0-98.0); Monocytes Absolute Auto 0.4 X10*3/uL (0.1-1.2); Monocytes Percent Auto 6.2 % (2-11); Neutrophils Absolute Auto 3.8 x10*3/uL (2.0-8.3); Neutrophils Percent Auto 54.6 % (45-73); Platelet Count 260 X10*3/uL (160-400); Red Blood Count 4.77 X10*6/uL (4.20-5.50); Red Cell Distribution Width 13.1 % (11.0-16.0); White Blood Count 7.1 X10*3/uL (4.8-10.8)
[2023-01-04 09:49] LABS: Estimated Average Glucose 91 mg/dL; Hemoglobin A1c % 4.8 % (<6.0)
[2023-01-04 10:38] LABS: Alanine Aminotransferase 18 U/L (0-31); Albumin Level 4.5 g/dL (3.5-5.0); Alkaline Phosphatase 161 U/L (39-117); Anion Gap 13 (12-20); Aspartate Amino Transferase 18 U/L (5-31); Bilirubin Total 0.4 mg/dL (0.0-1.0); Blood Urea Nitrogen 9 mg/dL (9-16); Calcium 9.9 mg/dL (8.4-10.2); Carbon Dioxide 24 mmol/L (22-29); Chloride 108 mmol/L (96-108); Cholesterol 245 mg/dL (<200); Estimated Glomerular Filt Rate > 60; Glucose Fasting 87 mg/dL (60-99); HDL Cholesterol 49 mg/dL (>40); LDL Cholesterol Calculated 175 mg/dL (<100); Potassium 4.4 mmol/L (3.3-5.1); Sodium 141 mmol/L (135-145); Triglycerides 105 mg/dL (<150)
[2023-01-04 10:40] LABS: Thyroid Stimulating Hormone 0.79 uIU/mL (0.32-4.0)
== END 2023-01-04 08:25 | disposition home or self-care (01) ==
LOC: HO.LAB 08:24
PROVIDERS: Visit Provider Nurse Practitioner Psychiatric/Mental Health
DX: F31.89 Other bipolar disorder (principal); Z79.899 Other long term (current) drug therapy
CPT/HCPCS: 36415; 80053; 80061; 83036; 84443; 85025

== ENCOUNTER 2023-01-06 07:13 | Outpatient (REF) | payer OTHER, SELFPAY ==
--- NOTE | ~2023-01-06 | MR_ITS ---
EXAMINATION: MR SHOULDER WITHOUT CONTRAST, LEFT CLINICAL INFORMATION: Left shoulder pain and limited range of motion. COMPARISON: Left shoulder radiographs dated 01/10/2015. TECHNIQUE: Multisequence MR imaging of the left shoulder was obtained without contrast on a high-field strength scanner. FINDINGS: ROTATOR CUFF: Moderate supraspinatus tendinosis with anterior bursal surface partial tearing measuring 1.5 x 0.7 cm (AP x ML). Moderate infraspinatus tendinosis. No full-thickness rotator cuff tendon tear. No muscle atrophy or fatty infiltration. BICEPS: Intact. CORACOACROMIAL ARCH: The undersurface of the acromion is curved with subacromial spurring. The acromioclavicular joint is normal. Small amount of fluid and edema within the subacromial subdeltoid bursa, consistent with mild bursitis. LABRUM/CAPSULE: No displaced labral tear. Intact inferior joint capsule. GLENOHUMERAL JOINT/MARROW: Mild articular cartilage signal heterogeneity with small marginal osteophytes. No acute osseous injury. MR/MR shoulder LT wo con IMPRESSION: 1. Moderate supraspinatus tendinosis with anterior bursal surface partial tearing measuring 1.5 x 0.7 cm. Moderate infraspinatus tendinosis. No full-thickness rotator cuff tendon tear. 2. Mild subacromial subdeltoid bursitis. 3. Mild glenohumeral arthrosis.
== END 2023-01-06 07:14 | disposition home or self-care (01) ==
LOC: HO.MRI 07:13
PROVIDERS: PCP Physician Assistant; Visit Provider Orthopaedic Surgery
DX: M24.812 Other specific joint derangements of left shoulder, not elsewhere classified (principal)
CPT/HCPCS: 73221

== ENCOUNTER 2023-02-22 08:16 | Outpatient (AMB) | payer OTHER, SELFPAY ==
--- NOTE | 2023-02-22 08:52 | A.OFFVIS_ITS ---
Intake Vital Signs 02/22/23 08:53 Height 5 ft 5 in Weight 213 lb BMI 35.4 Intake Visit Reasons: OV-Right Knee MRI follow up Intake Note: Cathy is a 53 year old female who presents today for an MRI review of her right knee. Allergies fentanyl [FENTANYL] Allergy (Intermediate, Verified 11/18/22 14:13) VOMITING Penicillins [PENICILLINS] Allergy (Intermediate, Verified 11/18/22 14:13) ANAPHYLAXIS sertraline [From ZOLOFT] Allergy (Intermediate, Verified 11/18/22 14:13) ANXIETY zolpidem [From AMBIEN] Allergy (Intermediate, Verified 11/18/22 14:13) suicidal attempt with zolpidem HPI OV-Right Knee MRI follow up HPI Details Cathy is a 53 year old woman who returns for an MRI review of her left shoulder. She has pain at night and is struggling to care for multiple members of her family who were ill. She is difficult time getting to physical therapy and has had a bad experience PT here at [facility] Medical History Left foot pain Right foot pain Polyarthralgia Carpal tunnel syndrome Bipolar disorder Depression Anxiety Hypovitaminosis D Constipation by delayed colonic transit Surgical History History of surgery History of right hip replacement History of hemorrhoidectomy History of bunionectomy History of cholecystectomy History of appendectomy Family History Father Depression Prostate cancer Chronic mental illness Mother Diabetes Cancer Maternal Aunt Breast cancer Family/Other Chronic mental illness Other Mental health disorder Social History Housing: House Alcohol intake: never Patient Tobacco Use Status: Never used Tobacco e-Cigarette/Vaping Use: Never Used Second Hand Smoke Exposure: No Substance Use Type: Marijuana service: No Current occupational status: disabled 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 Cognitive needs: No Hearing needs: No Vision needs: Yes (glasses) Review of Systems Const All systems reviewed & are unremarkable except as noted in HPI and below Physical Exam Vital Signs: BMI result Body Mass Index 35.4 Const General: no acute distress, alert and awake Orientation/consciousness: patient oriented x3 HEENT Head: Yes normocephalic and Yes atraumatic Eyes EOM: EOMs intact bilaterally Resp Effort & Inspection: normal respiratory effort and able to speak in complete sentences Cardio Jugular venous distension: no JVD Skin General skin exam: turgor normal Rashes: no rashes Neuro General: patient oriented x3 Extrem Other: + [place] and Neer Negative empty can 45/90/130 Psych Appearance: grossly normal Affect: normal affect Attitude: cooperative Results Reviewed Results Reviewed: I personally reviewed relevant MR images 1. Moderate supraspinatus tendinosis with anterior bursal surface partial tearing measuring 1.5 x 0.7 cm. Moderate infraspinatus tendinosis. No full-thickness rotator cuff tendon tear. 2. Mild subacromial subdeltoid bursitis. 3. Mild glenohumeral arthrosi Assessment & Plan Assessment & Plan (1) Tendinitis of left rotator cuff: Code(s): M75.82 - Other shoulder lesions, left shoulder Plan: Left RTC tendonitis PT and ibuprofen. She will defer on the PT and rx sent to pharmacy F/u prn Plan Scribed for Chris Silvestre MD by Vinod Holland, medical appliance maker, on 02/22/23 at 9:00 AM, EST. Medications: New ibuprofen 800 mg PO TID PRN 90 tabs 3RF pain Discontinued ibuprofen Discontinued Reason: Doctor's Order 400 mg PO TID PRN 30 tabs 0RF fever or pain Coding Level of Care Code Est Pt Level 3 (54750) Diagnoses Tendinitis of left rotator cuff M75.82
[2023-02-22 08:53] VITALS: BMI 35.4
== END 2023-02-22 10:35 | disposition home or self-care (01) ==
PROVIDERS: PCP Physician Assistant; Visit Provider Orthopaedic Surgery
DX: M75.82 Other shoulder lesions, left shoulder (principal)
CPT/HCPCS: 99213

== ENCOUNTER → 2023-02-22 08:16 | Outpatient (BNVA) | payer OTHER, SELFPAY | PROVIDERS: PCP Physician Assistant; Visit Provider Orthopaedic Surgery | DX: M75.82 Other shoulder lesions, left shoulder (principal) | CPT/HCPCS: 99212 ==

== ENCOUNTER 2023-04-14 09:09 | Outpatient (AMB) | payer OTHER, SELFPAY ==
[2023-04-14 09:12] VITALS: BP 120/82; BMI 33.4
--- NOTE | 2023-04-14 09:12 | MHC.PC.OV ---
Vital Signs 04/14/23 09:12 04/14/23 12:05 Height 5 ft 5 in Weight 201 lb BMI 33.4 BP 120/82 138/70 Blood Pressure Location Lt brachial Lt brachial Position Sitting Sitting Intake Visit Reasons: Annual exam Intake Note: Patient here for an annual physical exam Instrumental Teacher Required: No Accompanied by: Self / Same As Patient Allergies fentanyl [FENTANYL] Allergy (Intermediate, Verified 04/14/23 09:32) VOMITING Penicillins [PENICILLINS] Allergy (Intermediate, Verified 04/14/23 09:32) ANAPHYLAXIS sertraline [From ZOLOFT] Allergy (Intermediate, Verified 04/14/23 09:32) ANXIETY zolpidem [From AMBIEN] Allergy (Intermediate, Verified 04/14/23 09:32) suicidal attempt with zolpidem Medication List - Last Reconciled 04/14/23 by Valarie Akbar MD acetaminophen (Tylenol Extra Strength) 1,000 mg (2 x 500 mg) PO Q6H PRN [adult diapers pull-ups As directed] clonazepam 0.5 mg PO TID PRN clonazepam 1 mg PO BID PRN 30 days clotrimazole-betamethasone 1-0.05 % 1 appl topical BID 30 days cyclobenzaprine 5 mg PO TID PRN 30 days duloxetine 60 mg PO DAILY 30 days ibuprofen 800 mg PO TID PRN lorazepam 0.5 mg PO DAILY PRN 1 day meloxicam 15 mg PO DAILY 15 days oxcarbazepine 600 mg PO BID 30 days oxcarbazepine 150 mg PO BID 30 days prazosin 1 mg PO BEDTIME quetiapine 0 mg PO quetiapine 400 mg PO BEDTIME 30 days quetiapine 100 mg PO BEDTIME 30 days tizanidine 2 mg PO BID PRN underpads (Bed Underpads) As directed walker (Ultra-Light Rollator misc) As directed [wheelchair Ht: 5'6 , Wt: 211 lb As directed] Tobacco use date assessed: 04/06/22 HPI HPI Comments History of Present Illness Details This is a 53-year-old female with bipolar depression and severe major depression without psychotic features that comes for her physical exam. She is currently crying due to parents being very sick and close to dying. Mother has breast cancer with Mets and she is 82 years old. Father had multiple heart attacks is very weak and forgetful. She does follows with psychiatry but is willing to do counseling and L[facility] Brunson [facility] in the office will see her today. Last mammogram was 2022. Last colonoscopy was a few years ago and was normal. Pap smear was a long time ago. No chest pain or shortness of breath. Labs will be repeated. [facility] Medical History (Updated 04/14/23 @ 12:06 by Valarie Akbar MD) Physical exam Frequent falls Shoulder pain, bilateral Lumbar pain Chest pain Screening for cervical cancer Osteoarthritis of right knee Left foot pain Urinary incontinence Right foot pain Skin lesion Right knee pain Mid back pain on right side Right sided abdominal pain Cervical radiculopathy Osteoarthritis of acromioclavicular joint Rotator cuff tendonitis Chronic right shoulder pain Right shoulder pain Right hip pain Cervical strain Left foot pain Right foot pain Polyarthralgia Carpal tunnel syndrome Bipolar disorder Depression Anxiety Hypovitaminosis D Constipation by delayed colonic transit Surgical History History of surgery History of right hip replacement History of hemorrhoidectomy History of bunionectomy History of cholecystectomy History of appendectomy Family History Father Depression Prostate cancer Chronic mental illness Mother Diabetes Cancer Breast cancer Maternal Aunt Breast cancer Family/Other Chronic mental illness Other Mental health disorder Social History Housing: House Alcohol intake: never Patient Tobacco Use Status: Never used Tobacco e-Cigarette/Vaping Use: Never Used Second Hand Smoke Exposure: No Substance Use Type: Marijuana Advance Directives: No service: No Current occupational status: disabled 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 1. Little interest or pleasure in doing things: nearly every day 2. Feeling down, depressed, or hopeless: nearly every day 3. Trouble falling or staying asleep, or sleeping too much: more than half the days 4. Feeling tired or having little energy: nearly every day 5. Poor appetite or overeating: nearly every day 6. Feeling bad about yourself - or that you are a failure or have let yourself or your family down: nearly every day 7. Trouble concentrating on things, such as reading the newspaper or watching television: nearly every day 8. Moving or speaking so slowly that other people could have noticed. Or the opposite - being so fidgety or restless that you have been moving around a lot more than usual: more than half the days 9. Thoughts that you would be better off or of hurting yourself in some way: several days Total score: 23 Depression Screening Interpretation: Positive Depression Screening Follow-up: Existing condition, In treatment and Community Mental Health Worker F/U Depression Screening Done: Yes 51373 - PHQ-9 Billing: Yes Source: Developed by Drs. Tai Romero, Rochelle London, Renny Scales and colleagues, with an educational emily from [employer]. Thrive Questionnaire Date Thrive assessed: 04/14/23 I am a: Patient What is your living situation today?: I have a steady place to live Within the past 12 months, did the food you bought not last and you didn't have the money to get more?: Never true Within the past 12 months, did you worry whether your food would run out before you got money to buy more?: Never true Do you have trouble paying for medicines?: No Do you have trouble getting transportation to medical appointments?: No Do you have trouble paying your heating and electricity bill?: No Do you have trouble taking care of your child, family member or friend?: No Do you have trouble with day-to-day activities such as bathing, preparing meals, shopping, managing finances, etc.?: No Are you currently unemployed and looking for a job?: No Are you interested in more education?: No Please select the resources that you would like help with: None Currently or been in a relationship where the following occur: no concerns reported THRIVE Score: 0 AUDIT C Alcohol Use Questionnaire (AUDIT-C) 1. How often do you have a drink containing alcohol?: Never Total Score: 0 DAVID-7 AMB Questionnaire DAVID-7 Date DAVID - 7 assessed: 04/14/23 Feeling nervous, anxious, or on edge: 3 = Nearly every day Not being able to stop or control worryin = Nearly every day Worrying too much about different things: 3 = Nearly every day Trouble relaxin = Not at all Being so restless that it is hard to sit still: 0 = Not at all Becoming easily annoyed or irritable: 3 = Nearly every day Feeling afraid as if something awful might happen: 2 = More than half the days Total DAVID-7 score (0-4 normal; 5-9 mild; 10-14 moderate; 15-21 severe): 14 Source: Developed by Drs. Tai Romero, Rochelle London, Renny Scales and colleagues, with an educational emily from [employer]. DAVID-7 Assessment Billing DAVID-7 Assessment Tool: DAVID-7 Assessment 91669 Review of Systems Const All systems reviewed & are unremarkable except as noted in HPI and below Eyes Reports no additional complaints, Denies change in vision and Denies other visual disturbances Card Denies chest pain at rest, Denies chest pain with activity, Denies edema, Denies irregular heart rhythm, Denies claudication, Denies dyspnea, Denies dyspnea on exertion, Denies orthopnea, Denies paroxysmal nocturnal dyspnea and Denies slow heart rate Resp Denies cough, Denies dyspnea and Denies dyspnea on exertion GI Denies abdominal pain, Denies change in bowel habits, Denies excessive flatus, Denies nausea and Denies vomiting Denies urinary incontinence, Denies urinary hesitancy and Denies urinary urgency Musc Denies abnormal gait, Denies atrophy, Denies deformity and Denies limited range of motion Skin/Breast Denies bleeding lesions, Denies changing lesions and Denies rash Neuro Denies abnormal gait, Denies behavioral changes, Denies confusion and Denies lack of coordination Psych Denies behavioral changes and Denies confusion Physical exam (Primary Care) Vital Signs: Last Vital Signs BP 120/82 04/14/23 09:12 BMI result Body Mass Index 33.4 Tobacco/Smoking Status: Tobacco use Status Tobacco use date assessed 04/06/22 04/14/23 09:23 Patient Tobacco Use Status Never used Tobacco 04/14/23 09:23 e-Cigarette/Vaping Use Never Used 04/14/23 09:23 PHQ-9: PHQ-9 Score PHQ-9: Total score 04/14/23 09:34 Depression Screening Interpretation: Positive Depression Screening Follow-up: Existing condition, In treatment and Community Mental Health Worker F/U Thrive Assessment: Date of Thrive Assessment Date Thrive assessed 04/14/23 04/14/23 09:23 Currently or been in a relationship where the following occur: no concerns reported Const General: No confusion Orientation/consciousness: patient oriented x3 and No confusion HENMT Head: Yes normal to inspection, Yes normocephalic and Yes atraumatic Ears: external ears normal Eyes General: appearance normal, both eyes and all related structures Eyelids: Yes eyelids normal Conjunctivae: conjunctivae normal Neck Neck: Yes normal visual inspection and Yes supple Resp Effort & Inspection: normal respiratory effort Auscultation: clear to auscultation bilaterally Cardio Jugular venous distension: no JVD Rate: regular rate Rhythm: regular rhythm Heart sounds: S1 normal heart sound present and S2 normal heart sound present GI Inspection: Yes normal to inspection Palpation (GI): Soft to palpation and nontender Auscultation: normal bowel sounds Skin General skin exam: no rashes or lesions noted Neuro General: patient oriented x3, no focal motor deficits and No confusion Extrem General: Yes full ROM Psych Appearance: grossly normal Office Procedures Flu Questionnaire Does the patient have a severe egg allergy?: No Immunizations flu vacc [id number] 6mos up(PF) 60 mcg(15 mcgx4)/0.5 mL IM syringe Performing Provider: Valarie Akbar MD [facility] Documented (not given) by: GIOVANNA Alonso on 04/14/23 09:24 Reason Not Given: Received Previously Assessment and Plan Assessment & Plan (1) Physical exam: Code(s): Z00.00 - Encounter for general adult medical examination without abnormal findings Plan: Repeat in a year. (2) Bipolar disorder: Code(s): F31.9 - Bipolar disorder, unspecified Plan: Follow-up with psychiatry. (3) Severe major depression without psychotic features: Code(s): F32.2 - Major depressive disorder, single episode, severe without psychotic features Plan: Denies any suicidal thoughts. Follow-up with psychiatry. Orders: Orders Influenza [id number] Immunization Today Z23 - Encounter for immunization XR hip RT min 2V Today M25.551 - Pain in right hip Thyroid Stimulating Hormone Today E04.9 - Nontoxic goiter, unspecified Lipid Panel Today E78.5 - Hyperlipidemia, unspecified Comprehensive Met. Panel Today Z00.00 - Encounter for general adult medical examination without abnormal findings Coding Level of Care Code Est Pt Prev Care 40-64y(67951) Diagnoses Physical exam Z00.00 Bipolar disorder F31.9 Severe major depression without psychotic features F32.2 Additional Codes DAVID-7 Assessment Billing - DAVID-7 Assessment Tool: DAVID-7 Assessment 90180 ([id number]) Time Spent (min) 35
[2023-04-14 12:05] VITALS: BP 138/70
== END 2023-04-14 10:16 | disposition home or self-care (01) ==
PROVIDERS: Visit Provider Internal Medicine
DX: Z00.00 Encounter for general adult medical examination without abnormal findings (principal); F32.2 Major depressive disorder, single episode, severe without psychotic features
CPT/HCPCS: 99396

== ENCOUNTER 2023-04-14 10:16 | Emergency (ER) | payer OTHER, SELFPAY ==
[2023-04-14 10:25] VITALS: BP 150/81; PULSE 84; RESP 18; TEMP 36.6; O2SAT 97; BMI 33.4
--- NOTE | 2023-04-14 10:37 | ED.GENADULT ---
HPI - General Adult General Chief complaint: Psychiatric Symptoms Stated complaint: Crisis Time Seen by Provider: 04/14/23 10:37 Source: patient Mode of arrival: ambulatory Limitations: no limitations History of Present Illness HPI narrative: Patient is a 53 year old assigned female at with a history of bipolar disorder presenting to the emergency department today with increased depression. Patient states that over the last 2 months she has been more depressed and has a lot of life stresses. Patient denies any dizziness, lightheadedness, abdominal pain, nausea, vomiting, fever, chills, blurry vision, double vision, loss of vision, chest pain, difficulty breathing, shortness of breath, back pain, night sweats, pain with urination, increased urinary frequency, increased urinary urgency, blood in her urine or stool, syncope or a near syncopal episode, recent trauma or falls, bowel incontinence, bladder incontinence, bowel retention, bladder retention, or any other complaints at this time. Onset (ago): month(s) (2) Severity: mild Relieving factors: none Exacerbating factors: none Associated symptoms: denies other symptoms Treatments prior to arrival: none Related Data Home Medications Medication Instructions Recorded Confirmed clonazepam 0.5 mg tablet 0.5 mg PO TID PRN Anxiety 02/29/20 04/14/23 prazosin 1 mg capsule 1 mg PO BEDTIME 11/18/22 04/14/23 quetiapine 50 mg tablet 50 mg PO BEDTIME 11/18/22 04/14/23 meloxicam 15 mg tablet 15 mg PO DAILY 04/14/23 04/14/23 Previous Rx's Medication Instructions Recorded tizanidine 2 mg tablet 2 mg PO BID PRN muscle spasticity 06/23/21 #20 tabs adult diapers pull-ups #240 ea 12/25/21 wheelchair Ht: 5'6 , Wt: 211 lb #1 ea 12/25/21 acetaminophen 500 mg tablet 1,000 mg (2 x 500 mg) PO Q6H PRN 03/22/22 (Tylenol Extra Strength) fever or pain #20 tabs clonazepam 1 mg tablet 1 mg PO BID PRN anxiety 30 days 04/06/22 #60 tabs clotrimazole-betamethasone 1 1 appl topical BID 30 days #45 04/06/22 %-0.05 % topical cream grams cyclobenzaprine 5 mg tablet 5 mg PO TID PRN muscle pain 30 04/06/22 days #90 tabs underpads (Bed Underpads) #100 ea 08/05/22 walker (Ultra-Light Rollator misc) #1 ea 08/05/22 lorazepam 0.5 mg tablet 0.5 mg PO DAILY PRN anxiety 1 day 10/09/22 #2 tabs duloxetine 60 mg capsule,delayed 60 mg PO DAILY 30 days #30 caps 11/18/22 release oxcarbazepine 150 mg tablet 150 mg PO BID 30 days #60 tabs 11/18/22 oxcarbazepine 600 mg tablet 600 mg PO BID 30 days #60 tabs 11/18/22 quetiapine 100 mg tablet 100 mg PO BEDTIME 30 days #30 tabs 11/18/22 quetiapine 400 mg tablet 400 mg PO BEDTIME 30 days #30 tabs 11/18/22 ibuprofen 800 mg tablet 800 mg PO TID PRN pain #90 tabs 02/22/23 Allergies Allergy/AdvReac Type Severity Reaction Status Date / Time fentanyl [FENTANYL] Allergy Intermediate VOMITING Verified 04/14/23 09:32 Penicillins [PENICILLINS] Allergy Intermediate ANAPHYLAXIS Verified 04/14/23 09:32 sertraline [From ZOLOFT] Allergy Intermediate ANXIETY Verified 04/14/23 09:32 zolpidem [From AMBIEN] Allergy Intermediate suicidal Verified 04/14/23 09:32 attempt with zolpidem Review of Systems Constitutional: Constitutional: Reports no additional constitutional complaints, Denies chills, Denies fever(s) and Denies night sweats Eyes: Eyes: Reports no additional eye complaints, Denies blurry vision, Denies change in vision, Denies diplopia, Denies eye discharge, Denies loss of vision and Denies eye pain ENT: Denies dizziness Cardiovascular: Cardiovascular: Reports no additional cardiovascular complaints, Denies chest pain, Denies lightheadedness, Denies Loss of Consciousness and Denies dyspnea Respiratory: Respiratory: Reports no additional respiratory complaints and Denies dyspnea Gastrointestinal: Gastrointestinal: Reports no additional gastrointestinal complaints, Denies abdominal pain, Denies melena, Denies hematochezia, Denies change in bowel habits and Denies change in stool character Genitourinary: Genitourinary: Denies hematuria, Denies urinary frequency, Denies dysuria, Denies urinary incontinence, Denies urinary hesitancy and Denies urinary urgency Musculoskeletal: Musculoskeletal: Reports no additional musculoskeletal complaints, Denies numbness and Denies tingling Neurologic: Denies dizziness, Denies loss of vision, Denies numbness and Denies tingling Psychiatric: Psychiatric: Reports depression, Denies homicidal ideation and Denies suicidal ideation Endocrine: Endocrine: Reports no additional endocrine complaints Hematologic/Lymphatic: Hematologic/Lymphatic: Reports no additional hematologic/lymphatic complaints Allergic/Immunologic: Allergic/Immunologic: Reports no additional allergic/immunologic complaints [facility] Past Medical History Attestation statement: The following information was validated with the patient. Source: old records reviewed and nursing notes reviewed Medical History (Updated 04/14/23 @ 15:10 by JOSE Huddleston) Physical exam Frequent falls Shoulder pain, bilateral Lumbar pain Chest pain Screening for cervical cancer Osteoarthritis of right knee Left foot pain Urinary incontinence Right foot pain Skin lesion Right knee pain Mid back pain on right side Right sided abdominal pain Cervical radiculopathy Osteoarthritis of acromioclavicular joint Rotator cuff tendonitis Chronic right shoulder pain Right shoulder pain Right hip pain Cervical strain Left foot pain Right foot pain Polyarthralgia Carpal tunnel syndrome Bipolar disorder Depression Anxiety Hypovitaminosis D Constipation by delayed colonic transit Surgical History History of surgery History of right hip replacement History of hemorrhoidectomy History of bunionectomy History of cholecystectomy History of appendectomy Family History Family History Father Depression Prostate cancer Chronic mental illness Mother Diabetes Cancer Breast cancer Maternal Aunt Breast cancer Family/Other Chronic mental illness Other Mental health disorder Social History Social History Housing: House Alcohol intake: never Patient Tobacco Use Status: Never used Tobacco e-Cigarette/Vaping Use: Never Used Second Hand Smoke Exposure: No Substance Use Type: Marijuana Advance Directives: No Patient : No service: No Current occupational status: disabled 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 Cognitive needs: No Hearing needs: No Vision needs: Yes (glasses) Physical Exam ED Vital Signs: Vital Signs - 24 hr 04/14/23 10:25 Temperature 98 F Pulse Rate 84 Respiratory Rate 18 Blood Pressure 150/81 H Pulse Oximetry 97 Oxygen Delivery Method Room Air BMI result Body Mass Index 33.4 Const General: cooperative, no acute distress, alert and awake Nutritional Appearance: well nourished Orientation/consciousness: patient oriented x3 Limitations: no limitations HENMT Head: Yes normal to inspection and Yes atraumatic Ears: hearing grossly normal bilaterally and external ears normal General nose exam: Normal external nose present, no nasal discharge noted and no epistaxis Face and sinus: Yes normal facial exam, No abrasion and No laceration Mouth: Normal oral and palatal mucosa present, no drooling and no muffled voice Eyes General: appearance normal, both eyes and all related structures Periorbital: periorbital findings normal Eyelids: Yes eyelids normal Conjunctivae: conjunctivae normal Pupils: Equal, round and reactive pupils present EOM: EOMs intact bilaterally Neck Neck: Yes normal visual inspection, Yes full ROM and Yes no lymphadenopathy Chest Chest palpation & inspection: normal inspection of the chest Resp Effort & Inspection: normal respiratory effort and able to speak in complete sentences GI Inspection: Yes normal to inspection Neuro General: patient oriented x3 and moves all extremities Cranial nerves: Yes Equal, round and reactive pupils present Cognition (Neuro): normal cognition Motor exam (neuro): 5/5 motor strength present throughout Sensory Exam: Normal double simultaneous stimulation for sensation Coordination: [id number] test normal Extrem General: Yes normal to inspection, Yes full ROM and Yes capillary refill normal Psych Appearance: grossly normal Mental Status: mental status grossly normal Affect: normal affect Attitude: cooperative Thought process: Normal thought process present Thought content: Normal thought content present Insight: Good insight present (Psych) Medical Decision Making Medical Decision Making MDM Narrative: Patient is a 53 year old assigned female at with a history of bipolar disorder presenting to the emergency department today with increased depression. Patient's physical exam was unremarkable. Patient's blood work was unremarkable. Patient's urine showed no acute process. I explained my physical exam findings as well as all test results to the patient. I answered all questions asked by the patient. Patient is awaiting CARE team evaluation. Patient's disposition will be determined after CARE team evaluation. 1523 --> Care team evaluated the patient and provided her resources for out in the community. Patient cleared for discharge. Differential Diagnosis Differential Diagnoses: The differential diagnosis associated with the presentation includes Depression Admission/Observation Consideration of admission/observation: Escalation of care including admission/observation considered Patient would have been admitted to the hospital had her work up had any findings where hospital admission was appropriate and her clinical presentation warranted hospital admission. Lab Data [facility] Lab Attestation statement: I reviewed the patient's lab results. My interpretation of these results are in the [facility] Rationale portion of this note. 04/14/23 11:34 04/14/23 11:35 Labs: Lab Results 04/14/23 04/14/23 04/14/23 Range/Units 10:56 11:34 11:35 WBC 7.3 (4.8-10.8) X10*3/uL RBC 4.66 (4.20-5.50) X10*6/uL Hgb 14.4 (12.0-16.0) g/dl Hct 43.4 (37.0-47.0) % MCV 93.1 (80.0-98.0) fL MCH 30.9 (27.0-33.0) pg MCHC 33.2 (31.0-35.0) g/dl RDW 13.3 (11.0-16.0) % Plt Count 227 (160-400) X10*3/uL MPV 9.2 L (9.4-12.3) fL Immature Gran % (Auto) 0.3 (0.0-0.4) % Neut % (Auto) 53.3 (45-73) % Lymph % (Auto) 35.0 (20-40) % [place] % (Auto) 5.9 (2-11) % Eos % (Auto) 4.7 H (0-4) % Baso % (Auto) 0.8 (0-2) % Lymph # (Auto) 2.6 (1.2-4.9) X10*3/uL [place] # (Auto) 0.4 (0.1-1.2) X10*3/uL Eos # (Auto) 0.3 (0.0-0.4) X10*3/uL Baso # (Auto) 0.1 (0.0-0.2) X10*3/uL Abs Immat Gran (auto) 0.02 (0.00-0.03) X10*3/uL Absolute Neuts (auto) 3.9 (2.0-8.3) x10*3/uL Absolute Nucleated RBC 0.000 (0.0-0.012) X10*3/uL Nucleated RBC % (auto) 0.0 (0.0-0.2) /100WBC Sodium 142 (135-145) mmol/L Potassium 3.8 (3.3-5.1) mmol/L Chloride 109 H (96-108) mmol/L Carbon Dioxide 25 (22-29) mmol/L Anion Gap 12 (12-20) BUN 12 (9-16) mg/dL Creatinine 0.81 (0.5-1.4) mg/dL Estim Creat Clear Calc 87.5 Estimated GFR > 60 Random Glucose 81 (60-115) mg/dL Calcium 9.5 (8.4-10.2) mg/dL Total Bilirubin 0.2 (0.0-1.0) mg/dL AST 17 (5-31) U/L ALT 17 (0-31) U/L Alkaline Phosphatase 144 H (39-117) U/L Total Protein 7.6 (6.5-8.0) g/dL Albumin 4.2 (3.5-5.0) g/dL Urine Color Yellow Urine Appearance Clear Urine pH 6.0 (5.0-9.0) Ur Specific [place] 1.015 (1.005-1.025) Urine Protein Negative (Neg-Trace) mg/dL Urine Glucose (UA) Negative (Negative) mg/dL Urine Ketones Negative (Negative) mg/dL Urine Blood Negative (Negative) Urine Nitrite Negative (Negative) Ur Leukocyte Esterase Negative (Negative) Urine Test NEGATIVE (NEGATIVE) Salicylates < 5.0 L (15-30) mg/dL Urine Opiates Screen Not Detected (Not Detect) Urine Fentanyl Screen Not Detected (Not Detect) Acetaminophen < 3 (<30) mcg/mL Ur Barbiturates Screen Not Detected (Not Detect) Ur Phencyclidine Scrn Not Detected (Not Detect) Ur Amphetamines Screen Not Detected (Not Detect) U Benzodiazepines Scrn Not Detected (Not Detect) Urine Cocaine Screen Not Detected (Not Detect) U Marijuana (THC) Screen POSITIVE H (Not Detect) Ethyl Alcohol < 10 mg/dL COVID-19 (JOLENE) Negative (Negative) COVID-19 Clin Com See Note Discharge Plan Discharge Clinical Impression: Depression Patient Disposition: Home, Self-Care Instructions: Depression (DC) Additional Instructions: Follow up with your primary care provider. Return to the emergency department immediately if your symptoms worsen or if you develop any dizziness, shortness of breath, difficulty breathing, chest pain, blurry vision, loss of vision, nausea, vomiting, abdominal pain, fever, chills, back pain, or any other complaints. [facility]: [address], [place] [id number] Walk in hours from 10am - 12pm Open from 10am - 12pm [facility] Crisis Services: [address] [place] [address] Walk in hours from 10am - 12pm Open 05/10 [facility]: [address] [place] [id number] [place] [id number] Hours: M-F 8am to 8pm Wednesday and Wednesday 9am to 5pm Prescriptions: No Action (DME) adult diapers pull-ups XXlarge See Rx Instructions .Route .MEDSUPPLY Qty: 240 6RF Rx Instructions: As directed (DME) wheelchair Ht: 5'6 , Wt: 211 lb See Rx Instructions .Route .MEDSUPPLY Qty: 1 0RF Rx Instructions: As directed (DME) Ultra-Light Rollator Misc See Rx Instructions .Route Qty: 1 0RF Rx Instructions: As directed (DME) underpads [Bed Underpads] Pad See Rx Instructions .Route Qty: 100 11RF Rx Instructions: As directed lorazepam 0.5 mg tablet 0.5 mg PO DAILY PRN (Reason: anxiety) 1 Days Qty: 2 0RF Rx Instructions: take one tab 30 mins prior to procedure, take the 2nd tab as needed do not drive while taking this medication acetaminophen [Tylenol Extra Strength] 500 mg tablet 1,000 mg PO Q6H PRN (Reason: fever or pain) Qty: 20 0RF meloxicam 15 mg tablet 15 mg PO DAILY clonazepam 0.5 mg tablet 0.5 mg PO TID PRN (Reason: Anxiety) tizanidine 2 mg tablet 2 mg PO BID PRN (Reason: muscle spasticity) Qty: 20 0RF cyclobenzaprine 5 mg tablet 5 mg PO TID PRN (Reason: muscle pain) 30 Days Qty: 90 0RF clotrimazole-betamethasone 1-0.05 % cream 1 appl topical BID 30 Days Qty: 45 1RF clonazepam 1 mg tablet 1 mg PO BID PRN (Reason: anxiety) 30 Days Qty: 60 0RF quetiapine 50 mg tablet 50 mg PO BEDTIME prazosin 1 mg capsule 1 mg PO BEDTIME oxcarbazepine 600 mg tablet 600 mg PO BID 30 Days Qty: 60 0RF oxcarbazepine 150 mg tablet 150 mg PO BID 30 Days Qty: 60 0RF quetiapine 400 mg tablet 400 mg PO BEDTIME 30 Days Qty: 30 0RF quetiapine 100 mg tablet 100 mg PO BEDTIME 30 Days Qty: 30 0RF duloxetine 60 mg capsule,delayed release(DR/EC) 60 mg PO DAILY 30 Days Qty: 30 0RF ibuprofen 800 mg tablet 800 mg PO TID PRN (Reason: pain) Qty: 90 3RF Referrals: Valarie Ramos MD [Primary Care Provider] - Interventions: [place]-Suicide Risk Severity Scale Last Done: 04/14/23 12:00
[2023-04-14 11:13] LABS: Amphetamine Screen Urine Not Detected (Not Detect); Barbiturates, Urine Not Detected (Not Detect); Benzodiazepines Screen Urine Not Detected (Not Detect); Cannabinoid Screen Urine POSITIVE (Not Detect); Cocaine Screen Urine Not Detected (Not Detect); Fentanyl, urine Not Detected (Not Detect); Opiate Screen Urine Not Detected (Not Detect); Phencyclidine Screen Urine Not Detected (Not Detect)
[2023-04-14 11:15] LABS: Appearance Urine Clear; Color Urine Yellow; Glucose Urine UA Negative (Negative); Leukocyte Esterase Urine Negative (Negative); Nitrite Urine Negative (Negative); Specific Gravity - Urine 1.015 (1.005-1.025); Urine Blood Negative (Negative); Urine Ketones Negative (Negative); Urine Protein Negative (Neg-Trace)
[2023-04-14 11:16] LABS: UPreg QC Valid YES; Urine Pregnancy NEGATIVE (NEGATIVE)
[2023-04-14 11:17] LABS: IDNOW Serial# 152EDE1D
[2023-04-14 11:18] LABS: COVID-19 Test Negative (Negative)
[2023-04-14 11:42] LABS: MANUAL DIFF FLAG NO
[2023-04-14 11:53] LABS: Basophils Absolute Auto 0.1 X10*3/uL (0.0-0.2); Basophils Percent Auto 0.8 % (0-2); Eosinophils Absolute Auto 0.3 X10*3/uL (0.0-0.4); Eosinophils Percent Auto 4.7 % (0-4); Hematocrit 43.4 % (37.0-47.0); Hemoglobin 14.4 g/dl (12.0-16.0); Imm Gran Abs Auto 0.02 X10*3/uL (0.00-0.03); Imm Gran Pct Auto 0.3 % (0.0-0.4); Lymphocytes Absolute Auto 2.6 X10*3/uL (1.2-4.9); Mean Corpuscular HGB Conc 33.2 g/dl (31.0-35.0); Mean Corpuscular Hemoglobin 30.9 pg (27.0-33.0); Mean Corpuscular Volume 93.1 fL (80.0-98.0); Mean Platelet Volume 9.2 fL (9.4-12.3); Monocytes Absolute Auto 0.4 X10*3/uL (0.1-1.2); Monocytes Percent Auto 5.9 % (2-11); Neutrophils Absolute Auto 3.9 x10*3/uL (2.0-8.3); Neutrophils Percent Auto 53.3 % (45-73); Platelet Count 227 X10*3/uL (160-400); Red Blood Count 4.66 X10*6/uL (4.20-5.50); Red Cell Distribution Width 13.3 % (11.0-16.0); White Blood Count 7.3 X10*3/uL (4.8-10.8)
[2023-04-14 12:07] LABS: Acetaminophen LAB < 3 mcg/mL (<30); Salicylate < 5.0 mg/dL (15-30)
[2023-04-14 12:07] LABS: Alanine Aminotransferase 17 U/L (0-31); Albumin Level 4.2 g/dL (3.5-5.0); Alkaline Phosphatase 144 U/L (39-117); Anion Gap 12 (12-20); Aspartate Amino Transferase 17 U/L (5-31); Bilirubin Total 0.2 mg/dL (0.0-1.0); Blood Urea Nitrogen 12 mg/dL (9-16); Calcium 9.5 mg/dL (8.4-10.2); Carbon Dioxide 25 mmol/L (22-29); Chloride 109 mmol/L (96-108); Creatinine Clr Calc Pharmacy 87.5; Estimated Glomerular Filt Rate > 60; Ethanol < 10 mg/dL; Glucose Random 81 mg/dL (60-115); Potassium 3.8 mmol/L (3.3-5.1); Sodium 142 mmol/L (135-145); Total Protein 7.6 g/dL (6.5-8.0)
--- NOTE | 2023-04-14 14:03 | PC.NURSE ---
Preliminary med rec competed. Pharmacy notified to confirm med
--- NOTE | 2023-04-14 14:20 | PHA.MEDREC ---
Pharmacy Consult ? Medication Reconciliation Pharmacy has completed the medication reconciliation. Reviewed med rec done by nursing, confirmed with Herminia that patient reported meds that have not been filled recently.
== END 2023-04-14 15:53 | disposition home or self-care (01) ==
PROVIDERS: Physician Assistant Medical; Emergency Provider Emergency Medicine Emergency Medical Services; PCP Internal Medicine
DX: F32.A Depression, unspecified (principal); Z79.899 Other long term (current) drug therapy; Z11.52 Encounter for screening for COVID-19
CPT/HCPCS: 80053; 80143; 80179; 80307; 81003; 81025; 85025; 87635; 99284; S9485

== ENCOUNTER 2023-04-16 06:46 | Outpatient (REF) | payer OTHER, SELFPAY ==
--- NOTE | ~2023-04-16 | XR_ITS ---
EXAMINATION: XR HIP, LEFT CLINICAL INFORMATION: Pain. COMPARISON: Pelvic radiographs dated 07/30/2022. TECHNIQUE: AP and frog-leg lateral views of the left hip. FINDINGS: Bony alignment and mineralization are normal. There is moderate narrowing of the left acetabular joint space, most pronounced superiorly and inferiorly. There is subchondral sclerosis of the acetabulum, with peripheral osteophyte formation of the articular surfaces of the left hip. No fracture or dislocation is seen. The left femoral head is smooth. There are pelvic phleboliths. There are postoperative changes of the lumbosacral spine. XR/XR hip LT min 2V IMPRESSION: There is moderate osteoarthritic change of the left hip. No fracture or dislocation is seen.
[2023-04-16 08:09] LABS: Alanine Aminotransferase 22 U/L (0-31); Albumin Level 4.6 g/dL (3.5-5.0); Alkaline Phosphatase 161 U/L (39-117); Anion Gap 13 (12-20); Aspartate Amino Transferase 22 U/L (5-31); Bilirubin Total 0.6 mg/dL (0.0-1.0); Blood Urea Nitrogen 9 mg/dL (9-16); Calcium 9.3 mg/dL (8.4-10.2); Carbon Dioxide 28 mmol/L (22-29); Chloride 104 mmol/L (96-108); Cholesterol 240 mg/dL (<200); Estimated Glomerular Filt Rate > 60; Glucose Random 90 mg/dL (60-115); HDL Cholesterol 47 mg/dL (>40); LDL Cholesterol Calculated 174 mg/dL (<100); Potassium 3.7 mmol/L (3.3-5.1); Sodium 141 mmol/L (135-145); Total Protein 8.1 g/dL (6.5-8.0); Triglycerides 99 mg/dL (<150)
[2023-04-16 08:28] LABS: Thyroid Stimulating Hormone 1.02 uIU/mL (0.32-4.0)
== END 2023-04-16 06:47 | disposition home or self-care (01) ==
LOC: HO.XRAY 06:46
PROVIDERS: PCP Internal Medicine; Visit Provider Internal Medicine
DX: Z00.00 Encounter for general adult medical examination without abnormal findings (principal); M25.552 Pain in left hip; E04.9 Nontoxic goiter, unspecified; E78.5 Hyperlipidemia, unspecified
CPT/HCPCS: 36415; 73502; 80053; 80061; 84443

== ENCOUNTER 2023-05-08 08:30 | Emergency (ER) | payer OTHER, SELFPAY ==
--- NOTE | ~2023-05-08 | XR_ITS ---
EXAMINATION: XR SHOULDER, LEFT CLINICAL INFORMATION: Fall pain COMPARISON: None available. TECHNIQUE: Three views of the left shoulder. FINDINGS: No acute visible fracture or dislocation. Degenerative arthropathy of the glenohumeral and acromioclavicular joint. Joint space alignment otherwise maintained. Soft tissues are unremarkable. Visualized portions of the left chest are unremarkable. XR/XR shoulder LT min 2V IMPRESSION: 1. No acute visible fracture or dislocation. 2. Degenerative arthropathy of the glenohumeral and acromioclavicular joint.
--- NOTE | ~2023-05-08 | XR_ITS ---
EXAMINATION: XR KNEE, LEFT CLINICAL INFORMATION: Fall COMPARISON: None available. TECHNIQUE: Four views of the left knee. FINDINGS: No acute visible fracture or dislocation. Mild multi joint arthritic changes. Enthesopathy at the quadriceps tendon insertion site. Fabella is noted posterior compartment. Joint spaces and alignment otherwise maintained. Small knee joint effusion. Soft tissues are unremarkable. XR/XR knee LT 3V IMPRESSION: 1. No acute visible fracture or dislocation. 2. Mild multi joint arthritic changes. 3. Small knee joint effusion.
--- NOTE | ~2023-05-08 | CT_ITS ---
EXAMINATION: CT CERVICAL SPINE WITHOUT CONTRAST CLINICAL INFORMATION: Fall with neck pain. COMPARISON: None available. TECHNIQUE: Multidetector helical imaging acquired in the axial plane with generation of reformatted acquisitions. This CT examination was performed using dose optimization techniques as appropriate, variously including the following: *Automated exposure control *Adjustment of mA and/or kV according to patient size (this includes techniques or standardized protocols for targeted exams where dose is matched to indication/reason for exam; i.e. extremities or head) *Use of iterative reconstruction technique DLP: 607 mGy-cm FINDINGS: There is a mild rightward curvature of the cervical spine and reversed cervical lordosis. Bulky anterior endplate osteophyte noted at the C4-C5 and C5-C6 levels with mild disc bulges as well. No acute fracture identified. The craniovertebral junction is normal. There are moderate degenerative changes in the anterior arch of C1 and at the odontoid tip. There is hyperostosis along the medial portions of the petrous bones bilaterally. The imaged portions of the brain demonstrate no acute abnormality. Mild sphenoid sinus mucosal thickening noted. The nasopharyngeal soft tissues appear normal. The paraspinal soft tissues are unremarkable. The lung apices are clear. CT/CT cervical spine wo IV con IMPRESSION: No acute traumatic findings. Lower cervical spondylosis with disc-osteophyte complexes.
--- NOTE | ~2023-05-08 | XR_ITS ---
EXAMINATION: XR HIP, LEFT CLINICAL INFORMATION: Fall COMPARISON: Pelvis radiograph from 07/30/2022 TECHNIQUE: Two views of the left hip. FINDINGS: Status post right hip arthroplasty, grossly intact. Postsurgical changes of the lumbosacral junction, intact. No acute visible fracture or dislocation. Moderate arthritic changes of the left femoral acetabular joint. Degenerative arthropathy of the inferior margin of the right sacroiliac joint. Calcifications of the right sacrotuberous ligament. Joint space alignment otherwise maintained. Pelvic phleboliths are noted. Visualized bowel gas is unremarkable. Soft tissues are unremarkable. XR/XR hip LT min 2V IMPRESSION: 1. No acute visible fracture or dislocation. 2. Status post right hip arthroplasty, grossly intact. 3. Postsurgical changes of the lumbosacral junction, intact. 4. Moderate arthritic changes of the left femoral acetabular joint.
[2023-05-08 08:35] VITALS: BP 113/72; BP 128/86; PULSE 92; PULSE 93; RESP 16; TEMP 36.8; O2SAT 100; O2SAT 97; BMI 34.9
--- NOTE | 2023-05-08 09:32 | ED.FALL ---
HPI - Fall General Chief Complaint: Fall Stated Complaint: FALL,BLE PAIN,LOW BACK PAIN PER EMS Time Seen by Provider: 05/08/23 09:21 Source: patient and EMS Mode of arrival: EMS Limitations: no limitations History of Present Illness HPI Narrative: 53-year-old female brought in by ambulance after sustaining a mechanical fall. Patient slipped on ice this morning causing her to slip and fell landing on her knees and hands, declined hitting her head or LOC. Patient is complaining of neck pain, left shoulder pain, left hip pain, left knee pain, otherwise no other complaints. Related Data Home Medications Medication Instructions Recorded Confirmed clonazepam 0.5 mg tablet 0.5 mg PO TID PRN Anxiety 02/29/20 04/14/23 prazosin 1 mg capsule 1 mg PO BEDTIME 11/18/22 04/14/23 quetiapine 50 mg tablet 50 mg PO BEDTIME 11/18/22 04/14/23 meloxicam 15 mg tablet 15 mg PO DAILY 04/14/23 04/14/23 Previous Rx's Medication Instructions Recorded tizanidine 2 mg tablet 2 mg PO BID PRN muscle spasticity 06/23/21 #20 tabs adult diapers pull-ups #240 ea 12/25/21 wheelchair Ht: 5'6 , Wt: 211 lb #1 ea 12/25/21 acetaminophen 500 mg tablet 1,000 mg (2 x 500 mg) PO Q6H PRN 03/22/22 (Tylenol Extra Strength) fever or pain #20 tabs clonazepam 1 mg tablet 1 mg PO BID PRN anxiety 30 days 04/06/22 #60 tabs clotrimazole-betamethasone 1 1 appl topical BID 30 days #45 04/06/22 %-0.05 % topical cream grams cyclobenzaprine 5 mg tablet 5 mg PO TID PRN muscle pain 30 04/06/22 days #90 tabs underpads (Bed Underpads) #100 ea 08/05/22 walker (Ultra-Light Rollator misc) #1 ea 08/05/22 lorazepam 0.5 mg tablet 0.5 mg PO DAILY PRN anxiety 1 day 10/09/22 #2 tabs duloxetine 60 mg capsule,delayed 60 mg PO DAILY 30 days #30 caps 11/18/22 release oxcarbazepine 150 mg tablet 150 mg PO BID 30 days #60 tabs 11/18/22 oxcarbazepine 600 mg tablet 600 mg PO BID 30 days #60 tabs 11/18/22 quetiapine 100 mg tablet 100 mg PO BEDTIME 30 days #30 tabs 11/18/22 quetiapine 400 mg tablet 400 mg PO BEDTIME 30 days #30 tabs 11/18/22 ibuprofen 800 mg tablet 800 mg PO TID PRN pain #90 tabs 02/22/23 Allergies Allergy/AdvReac Type Severity Reaction Status Date / Time fentanyl [FENTANYL] Allergy Intermediate VOMITING Verified 05/08/23 08:42 Penicillins [PENICILLINS] Allergy Intermediate ANAPHYLAXIS Verified 05/08/23 08:42 sertraline [From ZOLOFT] Allergy Intermediate ANXIETY Verified 05/08/23 08:42 zolpidem [From AMBIEN] Allergy Intermediate suicidal Verified 05/08/23 08:42 attempt with zolpidem Review of Systems Review of Systems: All other systems are reviewed and are negative Constitutional: Reports as per HPI and Reports no additional constitutional complaints Eyes: Reports as per HPI and Reports no additional eye complaints Reports system reviewed and no additional complaints, except as documented Cardiovascular: Reports as per HPI and Reports no additional cardiovascular complaints Respiratory: Reports as per HPI and Reports no additional respiratory complaints Gastrointestinal: Reports as per HPI and Reports no additional gastrointestinal complaints Genitourinary: Reports no additional female genitourinary complaints Musculoskeletal: Reports no additional musculoskeletal complaints Skin/Breast: Reports system reviewed and no additional complaints, except as docu Psychiatric: Reports no additional psychiatric complaints Endocrine: Reports no additional endocrine complaints Hematologic/Lymphatic: Reports no additional hematologic/lymphatic complaints Allergic/Immunologic: Reports no additional allergic/immunologic complaints Reports system reviewed and no additional complaints, except as documented and Reports Abnormal speech present [facility] Past Medical History Medical History Physical exam Frequent falls Shoulder pain, bilateral Lumbar pain Chest pain Screening for cervical cancer Osteoarthritis of right knee Left foot pain Urinary incontinence Right foot pain Skin lesion Right knee pain Mid back pain on right side Right sided abdominal pain Cervical radiculopathy Osteoarthritis of acromioclavicular joint Rotator cuff tendonitis Chronic right shoulder pain Right shoulder pain Right hip pain Cervical strain Left foot pain Right foot pain Polyarthralgia Carpal tunnel syndrome Bipolar disorder Depression Anxiety Hypovitaminosis D Constipation by delayed colonic transit Surgical History History of surgery History of right hip replacement History of hemorrhoidectomy History of bunionectomy History of cholecystectomy History of appendectomy Family History Family History Father Depression Prostate cancer Chronic mental illness Mother Diabetes Cancer Breast cancer Maternal Aunt Breast cancer Family/Other Chronic mental illness Other Mental health disorder Social History Social History Housing: House Alcohol intake: never Patient Tobacco Use Status: Never used Tobacco Smoked in Last 30 Days: No e-Cigarette/Vaping Use: Never Used Second Hand Smoke Exposure: No Use of substances other than those prescribed or required for medical reasons: Yes Substance Use Type: Marijuana Advance Directives: No Advance Directives Information Provided: No service: No Current occupational status: disabled 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 Blood pressure elevated. Heart rate normal. Respiratory rate normal. Temperature normal. Oxygen saturation normal. Appearance: Alert. Oriented X3. No acute distress. Head: Normal external exam. Normocephalic. Atraumatic. No Knox signs noted. No raccoon eyes noted Eyes: PERRLA. EOMI. Conjunctiva and sclera normal. Eyelids normal. ENT: TM's Normal. Pharynx normal. Uvula midline. Moist mucous membranes. No trismus noted. No drooling noted. No muffled voice noted. Neck: Normal inspection. Neck supple. FROM. No adenopathy. Thyroid Normal. No meningeal signs. No neck mass noted. CVS: Normal heart rate and rhythm. Heart sound normal. No murmurs noted. Pulses normal throughout. Respiratory: No respiratory distress. Painless inspiration. Breath sounds normal. No wheezes/rales/rhonchi noted. Chest nontender. No accessory muscle usage noted or decreased air movement noted. Abdomen: Soft and nontender. Bowel sounds normal in all 4 quadrants. No distention noted. No organomegaly noted. No visible injury noted. Back: No CVA tenderness. Full range of motion noted. Skin: Skin warm and dry. Normal skin color. Normal skin turgor. No rashes/lesions/lacerations noted. Extremities: No lower extremity edema. Extremities exhibit normal range of motion. Extremities nontender. Neuro: Oriented X 3. Cranial nerve exam: II-XII are grossly intact No motor deficit. No sensory deficit. Reflexes normal. Course Reevaluation(s) Reevaluation #1: 53-year-old female s/p mechanical fall complaining of left shoulder/left knee/left hip pain with unremarkable x-ray for fracture. Patient also is complaining of neck pain with unremarkable cervical spine CT. Will discharge patient was instructed to take NSAIDs if needed for pain. Time: 12:20 Medications Administered Discontinued Medications Generic Name Dose Route Start Last Admin Trade Name Brayanq PRN Reason Stop Dose Admin Ibuprofen 600 mg 05/08/23 09:29 05/08/23 09:37 Ibuprofen 600 Mg Tablet PO 05/08/23 09:30 Not Given ONCE ONE Oxycodone HCl 5 mg 05/08/23 09:29 05/08/23 09:37 Oxycodone Hcl Immed Release 5 Mg Tablet PO 05/08/23 09:30 5 mg ONCE ONE Administration Medical Decision Making Differential Diagnosis Differential Diagnoses: The differential diagnosis associated with the presentation includes (Left shoulder fracture, left hip fracture, left knee fracture, cervical spine injury.) Admission/Observation Consideration of admission/observation: Escalation of care including admission/observation considered Independent Interpretation I performed an independent interpretation of an: Plain X-Ray (Left shoulder/left knee/left hip: No acute fracture) and CT Scan (Cervical spine CT: No acute pathology.) Radiology Impression Discussion of test interpretation with radiology: I have reviewed the radiologist's reading. Discharge Plan Discharge Clinical Impression: Accident due to mechanical fall without injury, Contusion Patient Disposition: Home, Self-Care Instructions: Contusion in Adults (ED) Prescriptions: No Action (DME) adult diapers pull-ups XXlarge See Rx Instructions .Route .MEDSUPPLY Qty: 240 6RF Rx Instructions: As directed (DME) wheelchair Ht: 5'6 , Wt: 211 lb See Rx Instructions .Route .MEDSUPPLY Qty: 1 0RF Rx Instructions: As directed (DME) Ultra-Light Rollator Misc See Rx Instructions .Route Qty: 1 0RF Rx Instructions: As directed (DME) underpads [Bed Underpads] Pad See Rx Instructions .Route Qty: 100 11RF Rx Instructions: As directed lorazepam 0.5 mg tablet 0.5 mg PO DAILY PRN (Reason: anxiety) 1 Days Qty: 2 0RF Rx Instructions: take one tab 30 mins prior to procedure, take the 2nd tab as needed do not drive while taking this medication acetaminophen [Tylenol Extra Strength] 500 mg tablet 1,000 mg PO Q6H PRN (Reason: fever or pain) Qty: 20 0RF meloxicam 15 mg tablet 15 mg PO DAILY clonazepam 0.5 mg tablet 0.5 mg PO TID PRN (Reason: Anxiety) tizanidine 2 mg tablet 2 mg PO BID PRN (Reason: muscle spasticity) Qty: 20 0RF cyclobenzaprine 5 mg tablet 5 mg PO TID PRN (Reason: muscle pain) 30 Days Qty: 90 0RF clotrimazole-betamethasone 1-0.05 % cream 1 appl topical BID 30 Days Qty: 45 1RF clonazepam 1 mg tablet 1 mg PO BID PRN (Reason: anxiety) 30 Days Qty: 60 0RF quetiapine 50 mg tablet 50 mg PO BEDTIME prazosin 1 mg capsule 1 mg PO BEDTIME oxcarbazepine 600 mg tablet 600 mg PO BID 30 Days Qty: 60 0RF oxcarbazepine 150 mg tablet 150 mg PO BID 30 Days Qty: 60 0RF quetiapine 400 mg tablet 400 mg PO BEDTIME 30 Days Qty: 30 0RF quetiapine 100 mg tablet 100 mg PO BEDTIME 30 Days Qty: 30 0RF duloxetine 60 mg capsule,delayed release(DR/EC) 60 mg PO DAILY 30 Days Qty: 30 0RF ibuprofen 800 mg tablet 800 mg PO TID PRN (Reason: pain) Qty: 90 3RF Referrals: Valarie Ramos MD [Primary Care Provider] - Stand Alone Forms: Work/School Release
[2023-05-08] MEDS: oxyCODONE HCl Immed Release 5 MG TABLET PO (09:37)
[2023-05-08 09:38] VITALS: RESP 16
[2023-05-08 10:23] VITALS: BP 101/72; PULSE 72; RESP 16; O2SAT 100
[2023-05-08 12:28] VITALS: BP 103/65; PULSE 73; RESP 16; TEMP 36.8; O2SAT 99
--- NOTE | 2023-05-08 12:34 | PC.NURSE ---
pt a&ox4, vss, reporting improvement in knee pain, cont'd 7/10 back pain, provider at bedside. plan for d/c home.
== END 2023-05-08 12:34 | disposition home or self-care (01) ==
PROVIDERS: Emergency Provider Emergency Medicine; PCP Internal Medicine
DX: S80.02XA Contusion of left knee, initial encounter (principal); W19.XXXA Unspecified fall, initial encounter; Y93.9 Activity, unspecified; Y92.9 Unspecified place or not applicable; Y99.9 Unspecified external cause status; M54.2 Cervicalgia; M25.512 Pain in left shoulder; M25.552 Pain in left hip
CPT/HCPCS: 72125; 73030; 73502; 73562; 99284

== ENCOUNTER 2023-06-01 11:05 | Outpatient (AMB) | payer OTHER, SELFPAY ==
[2023-06-01 11:07] VITALS: BP 112/70; BMI 32.8
--- NOTE | 2023-06-01 11:07 | A.OFFPC_ITS ---
Vital Signs 06/01/23 11:07 Height 5 ft 5 in Weight 197 lb BMI 32.8 BP 112/70 Blood Pressure Location Lt brachial Position Sitting Intake Visit Reasons: f/ u Intake Note: Patient here for follow up fall, seen at [facility] about 2 weeks ago, requesting xrays to check lungs due to excessive coughing Test Department Helper Required: No Accompanied by: Self / Same As Patient Allergies fentanyl [FENTANYL] Allergy (Intermediate, Verified 06/01/23 11:25) VOMITING Penicillins [PENICILLINS] Allergy (Intermediate, Verified 06/01/23 11:25) ANAPHYLAXIS sertraline [From ZOLOFT] Allergy (Intermediate, Verified 06/01/23 11:25) ANXIETY zolpidem [From AMBIEN] Allergy (Intermediate, Verified 06/01/23 11:25) suicidal attempt with zolpidem Medication List - Last Reconciled 06/01/23 by Valarie Akbar MD acetaminophen (Tylenol Extra Strength) 1,000 mg (2 x 500 mg) PO Q6H PRN [adult diapers pull-ups As directed] clonazepam 0.5 mg PO TID PRN clonazepam 1 mg PO BID PRN 30 days clotrimazole-betamethasone 1-0.05 % 1 appl topical BID 30 days cyclobenzaprine 5 mg PO TID PRN 30 days duloxetine 60 mg PO DAILY 30 days ibuprofen 800 mg PO TID PRN lorazepam 0.5 mg PO DAILY PRN 1 day meloxicam 15 mg PO DAILY oxcarbazepine 600 mg PO BID 30 days oxcarbazepine 150 mg PO BID 30 days prazosin 1 mg PO BEDTIME quetiapine 50 mg PO BEDTIME quetiapine 400 mg PO BEDTIME 30 days quetiapine 100 mg PO BEDTIME 30 days tizanidine 2 mg PO BID PRN underpads (Bed Underpads) As directed walker (Ultra-Light Rollator misc) As directed [wheelchair Ht: 5'6 , Wt: 211 lb As directed] Tobacco use date assessed: 06/01/23 Dental Screening Dental Screen Date: 06/01/23 Did you have a dental visit in the last 12 months?: No Did you have a dental problem in the last 6 months where you did not have access to dental care?: No Was dental information given to patient?: Patient has dentist HPI HPI Comments History of Present Illness Details This is a 53-year-old female with bipolar disorder and severe depression without psychotic features that comes today complaining of chronic cough has been present for over 2 months. It is a dry cough. No fever or nasal congestion. Chest x-ray will be order. She also complains of chronic low back pain due to lumbar degenerative disc disease and would like to go to pain management. Depression and bipolar disorder are follow by psychiatry and counseling. [facility] Medical History (Updated 06/01/23 @ 11:32 by Valarie Akbar MD) Physical exam Frequent falls Shoulder pain, bilateral Lumbar pain Chest pain Screening for cervical cancer Osteoarthritis of right knee Left foot pain Urinary incontinence Right foot pain Skin lesion Right knee pain Mid back pain on right side Right sided abdominal pain Cervical radiculopathy Osteoarthritis of acromioclavicular joint Rotator cuff tendonitis Chronic right shoulder pain Right shoulder pain Right hip pain Cervical strain Left foot pain Right foot pain Polyarthralgia Carpal tunnel syndrome Bipolar disorder Depression Anxiety Hypovitaminosis D Constipation by delayed colonic transit Surgical History History of surgery History of right hip replacement History of hemorrhoidectomy History of bunionectomy History of cholecystectomy History of appendectomy Family History Father Depression Prostate cancer Chronic mental illness Mother Diabetes Cancer Breast cancer Maternal Aunt Breast cancer Family/Other Chronic mental illness Other Mental health disorder Social History Housing: House Alcohol intake: never Patient Tobacco Use Status: Never used Tobacco e-Cigarette/Vaping Use: Never Used Second Hand Smoke Exposure: No Substance Use Type: Marijuana service: No Current occupational status: disabled 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 Tai Romero, Rochelle London, Renny Scales and colleagues, with an educational emily from [employer] Review of Systems Const All systems reviewed & are unremarkable except as noted in HPI and below Eyes Reports no additional complaints, Denies change in vision and Denies other visual disturbances Card Denies chest pain at rest, Denies chest pain with activity, Denies edema, Denies irregular heart rhythm, Denies claudication, Denies dyspnea, Denies dyspnea on exertion, Denies orthopnea, Denies paroxysmal nocturnal dyspnea and Denies slow heart rate Resp Denies cough, Denies dyspnea and Denies dyspnea on exertion GI Denies abdominal pain, Denies change in bowel habits, Denies excessive flatus, Denies nausea and Denies vomiting Denies urinary incontinence, Denies urinary hesitancy and Denies urinary urgency Musc Denies abnormal gait, Denies atrophy, Denies deformity and Denies limited range of motion Skin/Breast Denies bleeding lesions, Denies changing lesions and Denies rash Neuro Denies abnormal gait and Denies lack of coordination Physical exam (Primary Care) Vital Signs: Last Vital Signs BP 112/70 06/01/23 11:07 BMI result Body Mass Index 32.8 Tobacco/Smoking Status: Tobacco use Status Tobacco use date assessed 06/01/23 06/01/23 11:15 Patient Tobacco Use Status Never used Tobacco 06/01/23 11:15 e-Cigarette/Vaping Use Never Used 06/01/23 11:15 Thrive Assessment: Date of Thrive Assessment Date Thrive assessed 04/14/23 06/01/23 11:15 Eyes General: appearance normal, both eyes and all related structures Eyelids: Yes eyelids normal Conjunctivae: conjunctivae normal Neck Neck: Yes normal visual inspection and Yes supple Resp Effort & Inspection: normal respiratory effort Auscultation: clear to auscultation bilaterally Cardio Jugular venous distension: no JVD Rate: regular rate Rhythm: regular rhythm Heart sounds: S1 normal heart sound present and S2 normal heart sound present Extrem General: Yes full ROM Assessment and Plan Assessment & Plan (1) Lumbar degenerative disc disease: Code(s): M51.36 - Other intervertebral disc degeneration, lumbar region Plan: Referred to pain management. (2) Severe major depression without psychotic features: Code(s): F32.2 - Major depressive disorder, single episode, severe without psychotic features Plan: Follow-up with psychiatry. Continue duloxetine (3) Chronic cough: Code(s): R05.3 - Chronic cough Plan: Chest x-ray ordered. (4) Bipolar disorder: Code(s): F31.9 - Bipolar disorder, unspecified Plan: Follow-up with psychiatry. Continue ox carbamazepine. Orders: Orders XR chest 2V Today R05.3 - Chronic cough Referrals Pain Management Referral M51.36 - Other intervertebral disc degeneration, lumbar region Coding Level of Care Code Est Pt Level 4 (54823) Diagnoses Lumbar degenerative disc disease M51.36 Severe major depression without psychotic features F32.2 Chronic cough R05.3 Bipolar disorder F31.9 Time Spent (min) 24
== END 2023-06-01 11:42 | disposition home or self-care (01) ==
PROVIDERS: PCP Internal Medicine; Visit Provider Internal Medicine
DX: R05.3 Chronic cough (principal); M51.36 Other intervertebral disc degeneration, lumbar region; F31.9 Bipolar disorder, unspecified
CPT/HCPCS: 99214

== ENCOUNTER 2023-06-01 11:54 | Outpatient (REF) | payer OTHER, SELFPAY ==
--- NOTE | ~2023-06-01 | XR_ITS ---
EXAMINATION: XR CHEST CLINICAL INFORMATION: Chronic cough COMPARISON: None available. TECHNIQUE: 2 views of the chest were obtained. FINDINGS: vascularity. LUNGS: Lungs are clear. No pneumothorax is seen. BONES: Bony skeleton is intact. There is persistent mild lower thoracic dextroscoliosis. XR/XR chest 2V IMPRESSION: 1. Unchanged no radiographic signs of acute cardiopulmonary process. 2. Unchanged mild lower thoracic dextroscoliosis.
== END 2023-06-01 11:55 | disposition home or self-care (01) ==
LOC: HO.XRAY 11:54
PROVIDERS: PCP Internal Medicine; Visit Provider Internal Medicine
DX: R05.3 Chronic cough (principal)
CPT/HCPCS: 71046

== ENCOUNTER 2023-07-12 07:26 | Outpatient (REF) | payer OTHER, SELFPAY ==
[2023-07-12 07:52] LABS: MANUAL DIFF FLAG NO
[2023-07-12 07:54] LABS: Basophils Absolute Auto 0.1 X10*3/uL (0.0-0.2); Basophils Percent Auto 0.8 % (0-2); Eosinophils Absolute Auto 0.5 X10*3/uL (0.0-0.4); Eosinophils Percent Auto 7.5 % (0-4); Hemoglobin 14.6 g/dl (12.0-16.0); Imm Gran Abs Auto 0.01 X10*3/uL (0.00-0.03); Imm Gran Pct Auto 0.2 % (0.0-0.4); Lymphocytes Absolute Auto 1.9 X10*3/uL (1.2-4.9); Lymphocytes Percent Auto 30.6 % (20-40); Mean Corpuscular HGB Conc 33.2 g/dl (31.0-35.0); Mean Corpuscular Volume 96.5 fL (80.0-98.0); Mean Platelet Volume 8.6 fL (9.4-12.3); Monocytes Absolute Auto 0.4 X10*3/uL (0.1-1.2); Monocytes Percent Auto 6.4 % (2-11); Neutrophils Absolute Auto 3.4 x10*3/uL (2.0-8.3); Neutrophils Percent Auto 54.5 % (45-73); Platelet Count 256 X10*3/uL (160-400); Red Blood Count 4.56 X10*6/uL (4.20-5.50); Red Cell Distribution Width 13.3 % (11.0-16.0); White Blood Count 6.2 X10*3/uL (4.8-10.8)
[2023-07-12 08:52] LABS: Alanine Aminotransferase 12 U/L (0-31); Albumin Level 4.4 g/dL (3.5-5.0); Alkaline Phosphatase 140 U/L (39-117); Anion Gap 13 (12-20); Aspartate Amino Transferase 17 U/L (5-31); Bilirubin Total 0.4 mg/dL (0.0-1.0); Blood Urea Nitrogen 7 mg/dL (9-16); Calcium 9.5 mg/dL (8.4-10.2); Carbon Dioxide 22 mmol/L (22-29); Chloride 109 mmol/L (96-108); Cholesterol 228 mg/dL (<200); Estimated Glomerular Filt Rate > 60; Glucose Fasting 99 mg/dL (60-99); HDL Cholesterol 47 mg/dL (>40); LDL Cholesterol Calculated 159 mg/dL (<100); Magnesium 2.3 mg/dL (1.6-2.6); Potassium 3.7 mmol/L (3.3-5.1); Sodium 140 mmol/L (135-145); Total Protein 8.1 g/dL (6.5-8.0); Triglycerides 111 mg/dL (<150)
[2023-07-12 09:08] LABS: Free T4 (Free Thyroxine) 0.63 ng/dL (0.71-1.85); Thyroid Stimulating Hormone 2.07 uIU/mL (0.32-4.0); Vitamin D 25-OH Total 16.8 ng/mL (>30)
[2023-07-12 09:15] LABS: Vitamin B12 271 pg/mL (200-900)
[2023-07-12 09:20] LABS: Estimated Average Glucose 94 mg/dL; Hemoglobin A1c % 4.9 % (<6.0)
== END 2023-07-12 07:27 | disposition home or self-care (01) ==
LOC: HO.LAB 07:26
PROVIDERS: PCP Internal Medicine; Visit Provider Psychiatry & Neurology Psychiatry
DX: Z13.89 Encounter for screening for other disorder (principal)
CPT/HCPCS: 36415; 80053; 80061; 82306; 82607; 83036; 83735; 84439; 84443; 85025

== ENCOUNTER 2023-07-12 08:00 | Emergency (ER) | payer OTHER, SELFPAY ==
--- NOTE | 2023-07-12 08:00 | ECG_ITS ---
Test Reason : Syncope Blood Pressure : / mmHG Vent. Rate : 078 BPM Atrial Rate : 078 BPM P-R Int : 158 ms QRS Dur : 084 ms QT Int : 404 ms P-R-T Axes : 012 027 005 degrees QTc Int : 460 ms Normal sinus rhythm Nonspecific ST and T wave abnormality Abnormal ECG When compared with ECG of 05-NOV-2022 10:25, No significant change was found Referred By: Monroe Montero Electronically Signed By:RENALDO CARREON
--- NOTE | 2023-07-12 08:05 | ED_ITS ---
HPI - Syncope General Chief Complaint: Syncope Stated Complaint: from phlebotomy Time Seen by Provider: 07/12/23 08:02 Source: patient Mode of arrival: wheelchair Limitations: no limitations History of Present Illness HPI narrative: This is a 53 years old female with history of bipolar disorder PTSD presented to emergency room from phlebotomy because near syncopal episode. Patient was having blood drawn and almost passed out and she was transferred to the emergency department MD complaint: felt faint and almost passed out Onset (ago): hour(s) (1) -: second(s) Prodromal symptoms: lightheaded Witnessed: Yes - by Other (staff) Injuries sustained associated with event: none Current symptoms: back to baseline Related Data Previous Rx's ?Medication ?Instructions ?Recorded clonazepam 1 mg tablet 1 mg PO BID PRN Anxiety 15 days 07/06/23 #30 tabs duloxetine 30 mg capsule,delayed 30 mg PO DAILY 15 days #15 caps 07/06/23 release duloxetine 60 mg capsule,delayed 60 mg PO QAM 15 days #15 caps 07/06/23 release oxcarbazepine 150 mg tablet 150 mg PO BID 15 days #30 tabs 07/06/23 oxcarbazepine 600 mg tablet 600 mg PO BID 15 days #30 tabs 07/06/23 prazosin 1 mg capsule 1 mg PO BEDTIME 15 days #15 caps 07/06/23 quetiapine 100 mg tablet 200 mg (2 x 100 mg) PO BEDTIME 15 07/06/23 days #30 tabs quetiapine 400 mg tablet 400 mg PO BEDTIME 15 days #15 tabs 07/06/23 quetiapine 50 mg tablet 50 mg PO BID 15 days #30 tabs 07/06/23 Allergies Allergy/AdvReac Type Severity Reaction Status Date / Time fentanyl [FENTANYL] Allergy Intermediate VOMITING Verified 07/12/23 08:20 Penicillins [PENICILLINS] Allergy Intermediate ANAPHYLAXIS Verified 07/12/23 08:20 sertraline [From ZOLOFT] Allergy Intermediate ANXIETY Verified 07/12/23 08:20 zolpidem [From AMBIEN] Allergy Intermediate suicidal Verified 07/12/23 08:20 attempt with zolpidem Review of Systems Constitutional: Constitutional: Reports no additional constitutional complaints Eyes: Eyes: Reports no additional eye complaints Cardiovascular: Cardiovascular: Reports no additional cardiovascular complaints Musculoskeletal: Musculoskeletal: Reports no additional musculoskeletal complaints PMFSH Past Medical History Attestation statement: The following information was validated with the patient. Medical History Physical exam Frequent falls Shoulder pain, bilateral Lumbar pain Chest pain Screening for cervical cancer Osteoarthritis of right knee Left foot pain Urinary incontinence Right foot pain Skin lesion Right knee pain Mid back pain on right side Right sided abdominal pain Cervical radiculopathy Osteoarthritis of acromioclavicular joint Rotator cuff tendonitis Chronic right shoulder pain Right shoulder pain Right hip pain Cervical strain Left foot pain Right foot pain Polyarthralgia Carpal tunnel syndrome Bipolar disorder Depression Anxiety Hypovitaminosis D Constipation by delayed colonic transit Surgical History History of surgery History of right hip replacement History of hemorrhoidectomy History of bunionectomy History of cholecystectomy History of appendectomy Family History Family History Father Depression Prostate cancer Chronic mental illness Mother Diabetes Cancer Breast cancer Maternal Aunt Breast cancer Family/Other Chronic mental illness Other Mental health disorder Social History Social History Household Members: Other Household Members Other:: My dog Housing: House Alcohol intake: never Patient Tobacco Use Status: Never used Tobacco Smoked in Last 30 Days: No e-Cigarette/Vaping Use: Never Used Second Hand Smoke Exposure: No Use of substances other than those prescribed or required for medical reasons: Yes Substance Use Type: Marijuana Advance Directives: No Advance Directives Information Provided: No Do you have a plan to hurt others: No Plan service: No Current occupational status: disabled 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 Cognitive needs: No Hearing needs: No Vision needs: Yes (glasses) Physical Exam Vital Signs: Vital Signs: Last Vital Signs Temp 98.2 F 07/12/23 08:21 Pulse 82 07/12/23 08:21 Resp 14 07/12/23 08:21 BP 93/63 07/12/23 08:21 Pulse Ox 96 07/12/23 09:03 O2 Del Method Room Air 07/12/23 09:03 BMI result Body Mass Index 32.8 Const: General: cooperative, comfortable and no acute distress Nutritional Appearance: well nourished Orientation/consciousness: patient oriented x3 Limitations: no limitations HEENT: Head: Yes normal to inspection General nose exam: Normal external nose present Face and sinus: Yes normal facial exam Mouth: Normal oral and palatal mucosa present Throat: Yes posterior oropharynx normal Neck: Neck: Yes normal visual inspection Thyroid: Thyroid normal Chest: Chest palpation & inspection: normal inspection of the chest Resp: Effort & Inspection: normal respiratory effort Auscultation: clear to auscultation bilaterally Cardio: Palpation: normal PMI Rate: regular rate Rhythm: regular rhythm GI: Inspection: Yes normal to inspection Palpation (GI): Soft to palpation, not firm and nontender Auscultation: normal bowel sounds Neuro: General: patient oriented x3 Cranial nerves: Yes CN's II-XII intact bilaterally Course Reevaluation(s) Reevaluation #1: doing better eating and drinking fluids ;EKG OK; labs done earlier normal so I do not think I need to get any labs Time: 08:56 Medical Decision Making Medical Decision Making [facility] Narrative: Patient presented with a near syncopal episode after blood drawn this is most likely vasovagal episode, we will get EKG she already had blood work Differential Diagnosis Differential Diagnoses: The differential diagnosis associated with the presentation includes Syncope/near syncope/vasovagal episode Admission/Observation Consideration of admission/observation: Escalation of care including admission/observation considered Lab Data [facility] Lab Attestation statement: I reviewed the patient's lab results. Labs: Lab Results 07/12/23 Range/Units 08:04 POC Glucose 109 (60-115) mg/dL Independent Interpretation I performed an independent interpretation of an: EKG (Normal sinus rhythm [address]-T change) External Record Review External record reviewed: Inpatient record Discharge Plan Discharge Clinical Impression: Vasovagal near syncope Patient Disposition: Home, Self-Care Instructions: Near Syncope (ED) Prescriptions: No Action oxcarbazepine 150 mg tablet 150 mg PO BID 15 Days Qty: 30 1RF prazosin 1 mg capsule 1 mg PO BEDTIME 15 Days Qty: 15 1RF clonazepam 1 mg tablet 1 mg PO BID PRN (Reason: Anxiety) 15 Days Qty: 30 0RF quetiapine 100 mg tablet 200 mg PO BEDTIME 15 Days Qty: 30 1RF Rx Instructions: 2 tabs at bedtime. oxcarbazepine 600 mg tablet 600 mg PO BID 15 Days Qty: 30 1RF duloxetine 60 mg capsule,delayed release(DR/EC) 60 mg PO QAM 15 Days Qty: 15 1RF quetiapine 50 mg tablet 50 mg PO BID 15 Days Qty: 30 1RF quetiapine 400 mg tablet 400 mg PO BEDTIME 15 Days Qty: 15 0RF duloxetine 30 mg capsule,delayed release(DR/EC) 30 mg PO DAILY 15 Days Qty: 15 1RF Referrals: Valarie Ramos MD [Primary Care Provider] - 2 days Print Language: Setswana
[2023-07-12 08:09] LABS: Glucose, Whole Blood 109 mg/dL (60-115)
[2023-07-12 08:19] VITALS: BP 93/63; PULSE 82; RESP 14; TEMP 36.8; O2SAT 96; BMI 32.8
[2023-07-12 08:21] VITALS: BP 93/63; PULSE 82; RESP 14; TEMP 36.8; O2SAT 96
[2023-07-12 09:03] VITALS: O2SAT 96
[2023-07-12 09:13] VITALS: BP 101/68; PULSE 85; RESP 16; TEMP 36.5; O2SAT 96
== END 2023-07-12 09:15 | disposition home or self-care (01) ==
PROVIDERS: Emergency Provider Emergency Medicine; PCP Internal Medicine
DX: R55 Syncope and collapse (principal); R94.31 Abnormal electrocardiogram [ECG] [EKG]; Z79.899 Other long term (current) drug therapy
CPT/HCPCS: 36415; 80053; 80061; 82306; 82607; 82947; 83036; 83735; 84439; 84443; 85025; 93005; 99285

== ENCOUNTER → 2023-07-12 08:00 | Outpatient (BNV) | payer OTHER, SELFPAY | PROVIDERS: Emergency Provider Emergency Medicine; PCP Internal Medicine; Visit Provider Internal Medicine | DX: R55 Syncope and collapse (principal) | CPT/HCPCS: 93010 ==

== ENCOUNTER 2023-07-16 09:00 | Outpatient (RCR) | payer OTHER, SELFPAY ==
[2023-06-30 13:12] VITALS: BP 110/64; PULSE 80; TEMP 37.3
[2023-06-30 13:16] VITALS: BMI 32.8
--- NOTE | 2023-06-30 13:43 | PC.ADMIT ---
Patient is a 53 year old female who self referred to PHP d/t increased symptoms of depression and anxiety secondary to her who suddenly in December 2022 of unknown causes. Patient reports she requested an autopsy however has not received the results stating his sister has the results. Patient also reports that her mother who is living in [place] is battling breast CA and her mother's is terminally ill. In addition, she reports her a few years ago. Patient is alert and oriented x4. Calm and cooperative. Presents with depressed mood and affect. Denied SI, No HI. She was given a copy of her safety plan if needed. She stated she smokes marijuana one blunt daily. Last use yesterday. Patient reports that she receives [facility] services for medication management and has had this service for 20 years. I called to reconciled patient medications with patient's [facility] who stated she is with a patient and will call me back to confirm medication list. Patient has a history of attending PHP in the past and reports PHP has been helpful.
--- NOTE | 2023-07-01 16:07 | HO.PHP ---
Client's case has been opened and reviewed in team.
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
--- NOTE | 2023-07-06 09:21 | HO.PHPPROGNO ---
Subjective Subjective Date of Service: 07/06/23 Reason For Visit: MDD Interim History: I'm doing pretty good. I like being at the program, it's just once I leave I go back home and start feeling worse Patient feels isolated and has started to look into options to keep her more connected and sociable in the community. She notes she is by nature an outgoing person, so too much time alone is not good. 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 She has been spending a lot of time alone since losing her partner last December. It has been hard to start over. She notes a failed attempt at starting a relationship with a girl and that went poorly. She is trying to keep an open mind but presently having a lot of anticipitory anxiety about her time ending at [facility]. It's going to feel superbad when I leave here . She is open to a bump up on her duloxetine please, let's do that . She denies any thoughts of giving up on life. Denies any SI, urge, intention or plan. Sleep has been okay . 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 Medication Compliance: Yes Side effects from medications: No Attending Groups: Yes Review of Systems Acute medical concerns: No Mental Status Exam Mental Status Exam Narrative: Alert, oriented, in no acute distress. Calm, cooperative, engaged. No psychomotor agitation or neurovegetative retardation. Eye contact maintained. Mood anxious, affect variable, mood congruent. Speech normal. Thought process linear, coherent. Thought content related to stressors, denies any helplessness, hopelessness or SI.? No aggressive ideation or HI. No paranoia or delusional content elicited. No evidence of psychosis. Insight and judgment fair but adequate. Diagnostics Vital Signs (24Hr): BMI result Body Mass Index 32.8 Assessment & Plan Assessment & Plan (1) MDD (major depressive disorder), recurrent episode, moderate: Status: Acute Code(s): F33.1 - Major depressive disorder, recurrent, moderate (2) DAVID (generalized anxiety disorder): Status: Acute Code(s): F41.1 - Generalized anxiety disorder (3) Cannabis abuse: Status: Acute Code(s): F12.10 - Cannabis abuse, uncomplicated Plan increase duloxetine to 90 mg/d (split 60/30) continue other regular medications sent in 15 days of script plus one refill Patient educated on: diagnosis and medication risk/benefits Informed Consent: understands Reason for contiued partial hosp. stay Substantial Risk for: inability to function and med/psych decompensation Certification I certify that partial hospital treatment is medically necessary due to the symptoms and problems resulting from the patient's mental illness and the failure to treat the patient at the partial hospital level of care would likely result in the patient requiring inpatient psychiatric care which could not be prevented at a less intensive level of care. Total time managing care of this patient today __30__ minutes. Discharge Plan Discharge Attending provider: Polina Raymundo Medications: New duloxetine 30 mg capsule,delayed release(DR/EC) 30 mg PO DAILY 15 Days Qty: 15 1RF Continued oxcarbazepine 150 mg tablet 150 mg PO BID 15 Days Qty: 30 1RF prazosin 1 mg capsule 1 mg PO BEDTIME 15 Days Qty: 15 1RF clonazepam 1 mg tablet 1 mg PO BID PRN (Reason: Anxiety) 15 Days Qty: 30 0RF oxcarbazepine 600 mg tablet 600 mg PO BID 15 Days Qty: 30 1RF quetiapine 50 mg tablet 50 mg PO BID 15 Days Qty: 30 1RF quetiapine 400 mg tablet 400 mg PO BEDTIME 15 Days Qty: 15 0RF Changed quetiapine 100 mg tablet 200 mg PO BEDTIME 15 Days Qty: 30 1RF Rx Instructions: 2 tabs at bedtime. duloxetine 60 mg capsule,delayed release(DR/EC) 60 mg PO QAM 15 Days Qty: 15 1RF Print Language: Zimbabwean
--- NOTE | 2023-07-12 15:14 | HO.PHP ---
PHP staff member received a call from [facility] stating that Cathy will not be in attendance to program today due to being medically admitted. [facility] staff disclosed she should be in attendance to program tomorrow. [facility] staff member was receptive.
--- NOTE | 2023-07-13 09:03 | PC.NURSE ---
Patient stated she was evaluated in [facility] on 07/12/23 after having a syncope episode while doing lab work.
--- NOTE | 2023-07-14 12:50 | PC.NURSE ---
Cathy stated she needs to leave early as she did not sleep well last night waking up at 0300 and unable to get back to sleep. Also feeling anxious. Denied any safety issues, no SI. Stated she will be back tomorrow. [facility] staff is aware.
[2023-07-15 10:55] VITALS: BP 108/67; PULSE 86
[2023-07-15 11:12] VITALS: BP 111/70; PULSE 99
--- NOTE | 2023-07-15 14:19 | HO.PHP ---
Land Measurer met with Cathy to call [facility] and [facility] together to locate her therapist. Pt's therapist could not be located so a new one has been provided through [facility]. Her OP therapy appt is scheduled with Melani Potts at [address] in [facility], on July 18 at 9am. Pt has a med Provider appt with Joann Christie on July [address] [facility] [address] [facility] in [place].
--- NOTE | 2023-07-15 20:48 | HO.PHPPROGNO ---
Subjective Subjective Date of Service: 07/15/23 Reason For Visit: MDD Interim History: Patient seen for follow-up, anticipating discharge at the end of program today.? Patient had a syncopal episode on 07/11 for which she went to the ED. Negative cardiac work-up and was felt to be due to dehydration, although patient was not noted to be orthostatic at the time, BP was on the lower side 93/63 HR 80s. 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 She agrees to try drinking more water. She appears to have had other visits to the ED as well having more falls recently. She says she sometimes gets spastic legs and I get tippy toes where she involuntarily points her toes and her legs will shake for several minutes at a time. She demonstrates this for me. This occurs randomly perhaps a few times a week up to a few times a day. More likely to happen later at night when watching tv and is unable to walk when her feet go tippy toes . Legs will get tight and extended and her partner is unable to bend her knees or foot. Upon inquiry she says this is usually later in the night after taking her night meds. She also adds there are times she is afraid to swallow her meds because she feels her swallowing gets tight and may choke on the pills. And . She endorses occasional stiff neck, jaw tightness I get that sometimes...I thought it was lock jaw , adds that her tongue gets in the way when talking or eating. There was no TD noted on observation during our converation today and in fact she scored zero on AIMS test which was conducted. However upon observation during our encounter, when patient was occupied with the discussing other topics, periodic movements which I had previously noted this as fidgetiness, in fact appear more like a writhing motion, (which occurs in both her hands and feet periodically) and given her description of symptoms and the fact she is maintained on 700 mg/d of Seroquel, her clinical presentation it is concerning for EPS. We reviewed risk factors and presentating signs of extrapyramidal symptoms. In this context, I am also concerned that Seroquel may lower BP and be contributing to hypotension and these recent syncopal episodes. I reviewed lab work from 07/11 as well as routine EKG. QTc 460 ms which is borderline elevated (normal <460ms for women). She is not sure if her OP provider is aware of her falls and medical issues, noting that their session are very short and often these problems have not been addressed or mentioned as patient was not aware that her medical problems coud be medication related. Of note, she has never met with her outpatient provider Joann Andrew in person. they have only met over Zoom/telehealth and this may be why some of these psychomotor symptoms and signs were missed. We called [facility] to check when patient's next appointment is, we left VM message for call back regarding EPS, monitoring VS, and check in regarding when her next scheduled appointment is. We plan to decrease the Seroquel from 600 mg to 400 mg at night for now. She takes 50 mg in AM and afternoon which is reportedly helpful when she is anxious. I encourage her to take these on a PRN basis only now. I will have her lab work and EKG faxed over to her PCP and psych provider and have given copies of lab work and EKG to patient as well. I suggest she continue to taper the Seroquel to the lowest effective dose under the guidance of her OP provider. I also suggest splitting the duloxetine to from 90 mg in AM to 60/30 given complaints of dry mouth. ? Patient reports her mood is stable.? Denies any hopelessness or SI. Denies thoughts of harming self or others at this time. Denies any aggressive ideation or HI. Denies any paranoia or AH or VH. Sleep, appetite, energy stable. Medication Compliance: Yes Side effects from medications: No Attending Groups: Yes Review of Systems Acute medical concerns: No Mental Status Exam Mental Status Exam Narrative: Alert, oriented, in no acute distress. Calm, pleasant, friendly, cooperative, engaged. Well-related. No psychomotor agitation or neurovegetative retardation. Eye contact good. Mood euthymic, affect variable, mood congruent. Speech normal. Thought process goal-directed. Thought content future-oriented, denies any helplessness, hopelessness or SI.? No aggressive ideation or HI. Denies TH, AH or VH. No paranoia or delusional content elicited. No evidence of psychosis. Insight and judgment fair-good. Diagnostics Vital Signs (24Hr): Vital Signs - 24 hr 07/15/23 10:55 07/15/23 11:12 Pulse Rate 86 99 Blood Pressure 108/67 111/70 BMI result Body Mass Index 32.8 Labs Labs: [address] [address] Electrocardiograph Report Signed Patient: Cathy Rojas MR#: [id number] : 1970 Acct:[id number] Age/Sex: 53 / F ADM Date: 07/12/23 Loc: HO.ED Attending Dr: Ordering Physician: Monroe Montero MD Date of Service: 07/12/23 Procedure(s): ECG 12 lead EKG Accession Number(s): [id number] cc: Monroe Montero MD~ Test Reason : Syncope Blood Pressure : / mmHG Vent. Rate : 078 BPM Atrial Rate : 078 BPM P-R Int : 158 ms QRS Dur : 084 ms QT Int : 404 ms P-R-T Axes : 012 027 005 degrees QTc Int : 460 ms Normal sinus rhythm Nonspecific ST and T wave abnormality Abnormal ECG When compared with ECG of 05-NOV-2022 10:25, No significant change was found Assessment & Plan Assessment & Plan (1) Bipolar affective, depress, mod: Status: Acute Code(s): F31.32 - Bipolar disorder, current episode depressed, moderate (2) DAVID (generalized anxiety disorder): Status: Acute Code(s): F41.1 - Generalized anxiety disorder (3) PTSD (post-traumatic stress disorder): Status: Acute Code(s): F43.10 - Post-traumatic stress disorder, unspecified (4) Cannabis abuse: Status: Acute Code(s): F12.10 - Cannabis abuse, uncomplicated (5) Extrapyramidal and movement disorder, unspecified: Status: Acute Code(s): G25.9 - Extrapyramidal and movement disorder, unspecified Plan [facility] from [facility] reviewed recent lab work and EKG - copy given to patient also info printouts regarding Seroquel, EPS given to patient start vitamin D2 50,000 IU weekly #12 split duloxetine dose to 60 mg in AM and 30 mg PM decrease Seroquel from 600 to 400 mg qhs cont Seroquel 50 mg BID on PRN basis (not standing doses) add Cogentin 1 mg qhs discuss further taper of Seroquel with provider and suggest patient should periodically be seen in person to monitor AE and VS continue other regular medications will defer further medication management to outpatient provider Joann Andrew, next appointment 07/20 Refills sent to pharmacy Certification I certify that partial hospital treatment is medically necessary due to the symptoms and problems resulting from the patient's mental illness and the failure to treat the patient at the partial hospital level of care would likely result in the patient requiring inpatient psychiatric care which could not be prevented at a less intensive level of care. Total time managing care of this patient today ___45_ minutes. Discharge Plan Discharge Attending provider: Polina Raymundo Additional Instructions: Cathy has an OP therapy appointment scheduled with Melani Potts at [address] in [facility], on July 18 at 9am. Cathy has a med Provider appt with Joann Christie on July 20 at 11 am at [facility] in [place]. Medications: New duloxetine 30 mg capsule,delayed release(DR/EC) 30 mg PO DAILY 15 Days Qty: 15 1RF benztropine 1 mg tablet 1 mg PO .QHS Qty: 30 0RF ergocalciferol (vitamin D2) [Vitamin D2] 1,250 mcg (50,000 unit) capsule 1,250 mcg PO QWEEK Qty: 12 0RF Continued oxcarbazepine 150 mg tablet 150 mg PO BID 15 Days Qty: 30 1RF prazosin 1 mg capsule 1 mg PO BEDTIME 15 Days Qty: 15 1RF oxcarbazepine 600 mg tablet 600 mg PO BID 15 Days Qty: 30 1RF quetiapine 400 mg tablet 400 mg PO BEDTIME 15 Days Qty: 15 0RF clonazepam 1 mg tablet 1 mg PO BID PRN (Reason: Anxiety) 15 Days Qty: 30 0RF Changed duloxetine 60 mg capsule,delayed release(DR/EC) 60 mg PO QAM 15 Days Qty: 15 1RF quetiapine 50 mg tablet 50 mg PO BID PRN (Reason: severe anxiety or agitation) 15 Days Qty: 30 1RF Discontinued quetiapine 100 mg tablet 200 mg PO BEDTIME Rx Instructions: 2 tabs at bedtime. Stand Alone Forms: Patient Portal Discharge page Patient Education: Quetiapine (By mouth), Syncope (DC), Depression (DC), Extrapyramidal Symptoms (ED), Extrapyramidal Symptoms (GEN) Print Language: Syriac
== END 2023-07-16 23:59 | disposition home or self-care (01) ==
LOC: HO.PHPA 09:00
PROVIDERS: Visit Provider Psychiatry & Neurology Psychiatry
DX: F31.32 Bipolar disorder, current episode depressed, moderate (principal); F41.1 Generalized anxiety disorder; F43.10 Post-traumatic stress disorder, unspecified; F12.10 Cannabis abuse, uncomplicated; Z79.899 Other long term (current) drug therapy; Z63.4 Disappearance and death of family member
CPT/HCPCS: 90791; 90853

== ENCOUNTER 2023-09-23 10:40 | Emergency (ER) | payer OTHER, SELFPAY ==
--- NOTE | ~2023-09-23 | CT_ITS ---
EXAMINATION: CT ABDOMEN AND PELVIS WITH CONTRAST CLINICAL INFORMATION: Abdominal pain COMPARISON: Ultrasound abdomen 09/18/2021, CT abdomen pelvis 04/17/2019 TECHNIQUE: Multidetector volumetric images were obtained from the superior aspect of the liver through the pubic symphysis following administration 85 mL of Omnipaque 350 intravenous contrast. Sagittal and coronal reformatted images were obtained on the technologist's workstation. Oral contrast: No This CT examination was performed using dose optimization techniques as appropriate, variously including the following: *Automated exposure control *Adjustment of mA and/or kV according to patient size (this includes techniques or standardized protocols for targeted exams where dose is matched to indication/reason for exam; i.e. extremities or head) *Use of iterative reconstruction technique DLP: 793 mGy-cm FINDINGS: LUNG BASES: The visualized lung bases are unremarkable. LIVER, GALLBLADDER, AND BILIARY TREE: The liver is normal in size, shape, and attenuation. No focal hepatic. Mild central hepatic biliary dilatation seen in this patient status post cholecystectomy which can be normal.. PANCREAS: There is a 0.8 cm cyst seen in the pancreatic body measuring 12 Hounsfield units. I believe a side branch can be seen connecting to this. This may be an IPMN. Pancreatic MRI/MRCP is recommended for further evaluation. SPLEEN: Unremarkable. ADRENAL GLANDS: Unremarkable. KIDNEYS AND URETERS: The kidneys are normal in size, shape, and attenuation. No hydronephrosis, hydroureter, or calculi seen. No perinephric stranding. A few left-sided small benign Bosniak class I renal cysts are noted which require no additional imaging or follow-up. No solid renal masses are seen. BLADDER: Unremarkable. GASTROINTESTINAL TRACT: In the distal descending colon near the sigmoid junction, there is an area of colonic inflammation with pericolonic stranding in the surrounding fat. Although diverticula are not seen, findings may suggest acute diverticulitis. Focal colitis would be a another possibility. No extraluminal air or drainable fluid collection is seen. The remainder of the colon is unremarkable. The small bowel is unremarkable. The appendix is not seen but there is no evidence of appendicitis evidence of appendicitis. ABDOMINAL WALL: No significant hernia is appreciated. LYMPH NODES: Normal. VASCULAR: Unremarkable. PELVIC VISCERA: The uterus and adnexa are unremarkable. OSSEOUS STRUCTURES: There is anterior fusion at L5-S1 with interbody device. Degenerative changes are present at L4-L5. CT/CT abdomen pelvis w IV con IMPRESSION: 1. Inflammatory changes in the distal descending colon near the sigmoid junction. Findings may represent acute diverticulitis or focal colitis. This is likely the cause of the patient's abdominal pain. 2. Incidental note made of a 0.8 cm pancreatic cyst. Pancreatic MRI/MRCP is recommended for further evaluation. 3. Other incidental findings as described above. Fleischner guidelines were followed.
[2023-09-23 10:45] VITALS: BP 110/84; PULSE 91; O2SAT 96
[2023-09-23 10:47] VITALS: BP 105/63; PULSE 85; RESP 18; TEMP 36.9; O2SAT 98; BMI 35.3
--- NOTE | 2023-09-23 11:31 | ECG_ITS ---
Test Reason : ABD PAIN Blood Pressure : / mmHG Vent. Rate : 080 BPM Atrial Rate : 080 BPM P-R Int : 160 ms QRS Dur : 082 ms QT Int : 386 ms P-R-T Axes : 030 023 013 degrees QTc Int : 445 ms Normal sinus rhythm Normal ECG When compared with ECG of 12-JUL-2023 08:08, No significant change was found Referred By: Jyoti Camarena Electronically Signed By:Tahir Mederos
--- NOTE | 2023-09-23 11:31 | ED.GENADULT ---
HPI - General Adult General Chief complaint: Abdominal Pain Stated complaint: ABD/BACK PAIN,DIZZY,N/V,DARK URINE,BLOODY BM Time Seen by Provider: 09/23/23 11:30 Source: patient and EMS Mode of arrival: EMS Limitations: no limitations History of Present Illness ED Provider: Jyoti Camarena PA-C HPI narrative: The patient is a 53 year old assigned at female with a PMHx osteoarthritis of right knee, urinary incontinence, cervical radiculopathy, bipolar disorder, depression, anxiety, cholecystectomy, appendectomy, and right hip replacement presents to the ER due to a 2 day history of subrapubic stabbing that radiates to abdomen and lower back; 10/22, constant. Had two vomiting episodes yesterday, denies hematemsis, nausea, fever, chills, chest pain, and palpitations. Unable to eat or drink anything without having abdominal pain. Reports having chronic constipation with blood in stool due to hemorrhoids. Denies urinary urgency, frequency, hematuria, and dysuria. Has associated coughing with no sputum production and dyspnea when ambulating. Admits to seeing a shadow in the side of the right eye that seems like her . Denies auditory and tactile hallucinations. No recent travel or sick contacts. Relieving factors: none Exacerbating factors: none Associated symptoms: nausea/vomiting Treatments prior to arrival: none Related Data Previous Rx's ?Medication ?Instructions ?Recorded duloxetine 30 mg capsule,delayed 30 mg PO DAILY 15 days #15 caps 07/06/23 release duloxetine 60 mg capsule,delayed 60 mg PO QAM 15 days #15 caps 07/06/23 release oxcarbazepine 150 mg tablet 150 mg PO BID 15 days #30 tabs 07/06/23 oxcarbazepine 600 mg tablet 600 mg PO BID 15 days #30 tabs 07/06/23 prazosin 1 mg capsule 1 mg PO BEDTIME 15 days #15 caps 07/06/23 quetiapine 400 mg tablet 400 mg PO BEDTIME 15 days #15 tabs 07/06/23 benztropine 1 mg tablet 1 mg PO .QHS #30 tabs 07/15/23 clonazepam 1 mg tablet 1 mg PO BID PRN Anxiety 15 days 07/15/23 #30 tabs ergocalciferol (vitamin D2) 1,250 1,250 mcg PO QWEEK #12 caps 07/15/23 mcg (50,000 unit) capsule (Vitamin D2) quetiapine 50 mg tablet 50 mg PO BID PRN severe anxiety or 07/15/23 agitation 15 days #30 tabs Allergies Allergy/AdvReac Type Severity Reaction Status Date / Time fentanyl [FENTANYL] Allergy Intermediate VOMITING Verified 09/23/23 10:49 Penicillins [PENICILLINS] Allergy Intermediate ANAPHYLAXIS Verified 09/23/23 10:49 sertraline [From ZOLOFT] Allergy Intermediate ANXIETY Verified 09/23/23 10:49 zolpidem [From AMBIEN] Allergy Intermediate suicidal Verified 09/23/23 10:49 attempt with zolpidem Review of Systems Review of Systems: Yes all other systems are reviewed and are negative Constitutional: Constitutional: Reports no additional constitutional complaints, Denies body ache(s), Denies chills, Denies fever(s), Denies headache(s) and Denies night sweats Eyes: Eyes: Reports no additional eye complaints, Denies blurry vision, Reports change in vision, Denies diplopia, Denies eye discharge, Denies loss of vision and Denies eye pain ENT: Reports as per HPI, Denies dysphagia, Denies dizziness and Denies headache(s) Cardiovascular: Cardiovascular: Reports no additional cardiovascular complaints, Denies chest pain, Denies lightheadedness, Denies Loss of Consciousness, Reports dyspnea and Reports dyspnea on exertion Respiratory: Respiratory: Reports no additional respiratory complaints, Reports cough (no production), Denies hemoptysis, Reports dyspnea and Reports dyspnea on exertion Gastrointestinal: Gastrointestinal: Reports no additional gastrointestinal complaints, Reports abdominal pain, Denies melena, Reports hematochezia, Denies change in bowel habits, Denies change in stool character, Reports constipation, Denies dysphagia, Denies diarrhea, Reports nausea, Reports vomiting and Denies hematemesis Genitourinary: Genitourinary: Denies hematuria, Denies urinary frequency, Denies dysuria, Denies urinary incontinence, Denies urinary hesitancy and Denies urinary urgency Musculoskeletal: Musculoskeletal: Reports no additional musculoskeletal complaints, Denies numbness and Denies tingling Neurologic: Denies dizziness, Denies headache(s), Denies loss of vision, Denies numbness and Denies tingling Psychiatric: Psychiatric: Reports no additional psychiatric complaints Endocrine: Endocrine: Reports no additional endocrine complaints Hematologic/Lymphatic: Hematologic/Lymphatic: Reports no additional hematologic/lymphatic complaints Allergic/Immunologic: Allergic/Immunologic: Reports no additional allergic/immunologic complaints [facility] Past Medical History Attestation statement: The following information was validated with the patient. Source: old records reviewed and nursing notes reviewed Medical History Physical exam Frequent falls Shoulder pain, bilateral Lumbar pain Chest pain Screening for cervical cancer Osteoarthritis of right knee Left foot pain Urinary incontinence Right foot pain Skin lesion Right knee pain Mid back pain on right side Right sided abdominal pain Cervical radiculopathy Osteoarthritis of acromioclavicular joint Rotator cuff tendonitis Chronic right shoulder pain Right shoulder pain Right hip pain Cervical strain Left foot pain Right foot pain Polyarthralgia Carpal tunnel syndrome Bipolar disorder Depression Anxiety Hypovitaminosis D Constipation by delayed colonic transit Surgical History History of surgery History of right hip replacement History of hemorrhoidectomy History of bunionectomy History of cholecystectomy History of appendectomy Family History Family History Father Depression Prostate cancer Chronic mental illness Mother Diabetes Cancer Breast cancer Maternal Aunt Breast cancer Family/Other Chronic mental illness Other Mental health disorder Social History Social History Household Members: Other Household Members Other:: My dog Housing: House Alcohol intake: never Patient Tobacco Use Status: Never used Tobacco Smoked in Last 30 Days: No e-Cigarette/Vaping Use: Never Used Second Hand Smoke Exposure: No Use of substances other than those prescribed or required for medical reasons: Yes Substance Use Type: Marijuana Substance Use Frequency: Occasionally Advance Directives: No Advance Directives Information Provided: No Do you have a plan to hurt others: No Plan Patient : No service: No Current occupational status: disabled 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 Cognitive needs: No Hearing needs: No Vision needs: Yes (glasses) Physical Exam ED Vital Signs: Vital Signs - 24 hr 09/23/23 10:47 09/23/23 12:00 09/23/23 14:00 Temperature 98.4 F 98.7 F 98.6 F Pulse Rate 85 72 73 Respiratory Rate 18 18 12 Blood Pressure 105/63 118/79 101/56 L Pulse Oximetry 98 93 Oxygen Delivery Method Room Air Room Air BMI result Body Mass Index 35.3 Const General: cooperative, no acute distress, alert and awake Nutritional Appearance: well nourished Orientation/consciousness: patient oriented x3 Limitations: no limitations HENMT Head: Yes normal to inspection and Yes atraumatic Ears: hearing grossly normal bilaterally and external ears normal General nose exam: Normal external nose present, no nasal discharge noted and no epistaxis Face and sinus: Yes normal facial exam, No abrasion and No laceration Mouth: Normal oral and palatal mucosa present, no drooling and no muffled voice Eyes General: appearance normal, both eyes and all related structures Periorbital: periorbital findings normal Eyelids: Yes eyelids normal Conjunctivae: conjunctivae normal Pupils: Equal, round and reactive pupils present EOM: EOMs intact bilaterally Neck Neck: Yes normal visual inspection, Yes full ROM and Yes no lymphadenopathy Chest Chest palpation & inspection: normal inspection of the chest Resp Effort & Inspection: normal respiratory effort and able to speak in complete sentences Auscultation: clear to auscultation bilaterally Cardio Rate: regular rate Rhythm: regular rhythm GI Inspection: Yes normal to inspection Palpation (GI): Soft to palpation, not firm and Tenderness to palpation present (GI) (severe diffuse tenderness to minimal palpation ) Auscultation: normal bowel sounds Neuro General: patient oriented x3 and moves all extremities Cranial nerves: Yes Equal, round and reactive pupils present Cognition (Neuro): normal cognition Extrem General: Yes normal to inspection, Yes full ROM and Yes capillary refill normal Psych Appearance: grossly normal Mental Status: mental status grossly normal Affect: normal affect Attitude: cooperative Thought process: Normal thought process present Thought content: Normal thought content present Insight: Good insight present (Psych) Medications Administered Discontinued Medications Generic Name Dose Route Start Last Admin Trade Name Freq PRN Reason Stop Dose Admin Diatrizoate Meglum/Diatrizoate Sod 30 ml 09/23/23 12:06 09/23/23 12:06 Diatrizoate Meglumine, Sodium 30 Ml Solution PO 09/23/23 12:07 30 ml ONCE ONE Administration Diatrizoate Meglum/Diatrizoate Sod 30 ml 09/23/23 14:05 09/23/23 14:05 Diatrizoate Meglumine, Sodium 30 Ml Solution PO 09/23/23 14:06 30 ml ONCE ONE Administration Hydromorphone HCl 1 mg 09/23/23 12:59 09/23/23 13:03 Hydromorphone Hcl 1 Mg/Ml Syringe IVPUSH 09/23/23 13:00 1 mg ONCE ONE Administration Protocol Sodium Chloride 1,000 mls @ 999 mls/hr 09/23/23 11:45 09/23/23 14:30 Ns IV 09/23/23 12:45 Infused .Q1H1M DOM Infusion Iohexol 100 ml 09/23/23 14:04 09/23/23 14:04 Iohexol 350 Mg/Ml 100 Ml Infus..Btl IV 09/23/23 14:05 85 ml ONCE ONE Administration Morphine Sulfate 4 mg 09/23/23 11:46 09/23/23 12:02 Morphine Sulfate 4 Mg/Ml Cartridge IVPUSH 09/23/23 11:47 4 mg ONCE ONE Administration Protocol Ondansetron HCl 4 mg 09/23/23 11:31 09/23/23 11:57 Ondansetron Hcl 4 Mg/2 Ml Vial IVPUSH 09/23/23 11:32 4 mg ONCE ONE Administration Ondansetron HCl 4 mg 09/23/23 11:46 09/23/23 12:10 Ondansetron Hcl 4 Mg/2 Ml Vial IVPUSH 09/23/23 11:47 Not Given ONCE ONE Medical Decision Making Medical Decision Making [facility] Narrative: The patient is a 53 year old assigned at female with a PMHx osteoarthritis of right knee, urinary incontinence, cervical radiculopathy, bipolar disorder, depression, anxiety, cholecystectomy, appendectomy, and right hip replacement presents to the ER due to a 2 day history of subrapubic stabbing that radiates to abdomen and lower back. On arrival to the ER, the patient is hemodynamically stable, in no acute distress. On examination, patient is non-toxic appearing, abdomen is non-distended, normal bowel sounds, patient has diffuse pain to palpation. Otherwise, remaining PE is unremarkable. Labs are unremarkable, urine shows possible UTI however, it is a contaminated sample. Patient's CT scan of the abdomen/pelvis is pending at this time. Patient signed out to the evening JAMAAL pending CT read. Differential Diagnosis Differential Diagnoses: The differential diagnosis associated with the presentation includes SBO, LBO, ovarian cyst, endometriosis, colitis, nephrolithiasis, PUD, colon CA, uterine CA, low suspicion for mesenteric ischemia Admission/Observation Consideration of admission/observation: Escalation of care including admission/observation considered Patient's disposition will be determined after imaging results. Lab Data [facility] Lab Attestation statement: I reviewed the patient's lab results. My interpretation of these results are in the [facility] Rationale portion of this note. 09/23/23 11:51 09/23/23 11:51 Labs: Lab Results 09/23/23 09/23/23 Range/Units 11:51 14:40 WBC 9.0 (4.8-10.8) X10*3/uL RBC 4.38 (4.20-5.50) X10*6/uL Hgb 13.8 (12.0-16.0) g/dl Hct 41.2 (37.0-47.0) % MCV 94.1 (80.0-98.0) fL MCH 31.5 (27.0-33.0) pg MCHC 33.5 (31.0-35.0) g/dl RDW 12.6 (11.0-16.0) % Plt Count 233 (160-400) X10*3/uL MPV 8.5 L (9.4-12.3) fL Immature Gran % (Auto) 0.3 (0.0-0.4) % Neut % (Auto) 66.2 (45-73) % Lymph % (Auto) 20.8 (20-40) % [place] % (Auto) 7.6 (2-11) % Eos % (Auto) 4.7 H (0-4) % Baso % (Auto) 0.4 (0-2) % Lymph # (Auto) 1.9 (1.2-4.9) X10*3/uL [place] # (Auto) 0.7 (0.1-1.2) X10*3/uL Eos # (Auto) 0.4 (0.0-0.4) X10*3/uL Baso # (Auto) 0.0 (0.0-0.2) X10*3/uL Abs Immat Gran (auto) 0.03 (0.00-0.03) X10*3/uL Absolute Neuts (auto) 6.0 (2.0-8.3) x10*3/uL Absolute Nucleated RBC 0.000 (0.0-0.012) X10*3/uL Nucleated RBC % (auto) 0.0 (0.0-0.2) /100WBC Sodium 140 (135-145) mmol/L Potassium 3.5 (3.3-5.1) mmol/L Chloride 105 (96-108) mmol/L Carbon Dioxide 27 (22-29) mmol/L Anion Gap 12 (12-20) BUN 7 L (9-16) mg/dL Creatinine 0.80 (0.5-1.4) mg/dL Estim Creat Clear Calc 91.1 Estimated GFR > 60 Random Glucose 86 (60-115) mg/dL Calcium 9.2 (8.4-10.2) mg/dL Magnesium 2.3 (1.6-2.6) mg/dL Total Bilirubin 0.5 (0.0-1.0) mg/dL AST 14 (5-31) U/L ALT 9 (0-31) U/L Alkaline Phosphatase 137 H (39-117) U/L Troponin I High Sens < 2.7 (<3.5-17.0) ng/L Total Protein 7.5 (6.5-8.0) g/dL Albumin 4.2 (3.5-5.0) g/dL Lipase 13 (8-78) U/L Urine Color Dark Yellow Urine Appearance Clear Urine pH 6.0 (5.0-9.0) Ur Specific Groom >= 1.030 H (1.005-1.025) Urine Protein Trace (Neg-Trace) mg/dL Urine Glucose (UA) Negative (Negative) mg/dL Urine Ketones Trace (Negative) mg/dL Urine Blood Negative (Negative) Urine Nitrite Negative (Negative) Ur Leukocyte Esterase Trace H (Negative) Urine RBC 0-2 (0-2) /HPF Urine WBC 6-10 H (0-5) /HPF Ur Squamous Epith Cells 11-20 (0-2) /HPF Urine Bacteria 4+ (None Seen) Hyaline Casts 0-2 (0-2) /LPF Urine Opiates Screen POSITIVE H (Not Detect) Ur Buprenorphine Scrn Not Detected (Not Detect) ng/mL Ur Oxycodone Screen Not Detected (Not Detect) ng/mL Urine Methadone Screen Not Detected (Not Detect) ng/mL Urine Fentanyl Screen Not Detected (Not Detect) Ur Barbiturates Screen Not Detected (Not Detect) Ur Phencyclidine Scrn Not Detected (Not Detect) Ur Amphetamines Screen Not Detected (Not Detect) U Benzodiazepines Scrn POSITIVE H (Not Detect) Urine Cocaine Screen Not Detected (Not Detect) U Marijuana (THC) Screen POSITIVE H (Not Detect) Influenza Type A (PCR) NEGATIVE (Negative) Influenza Type B (PCR) NEGATIVE (Negative) RSV RNA Qual (PCR) NEGATIVE (Negative) SARS-CoV-2 RNA (RT-PCR) NEGATIVE (Negative) Independent Historian Clinical information obtained from an independent historian. History obtained from or confirmed by: EMS (EMS provided additional history and confirmed the history provided by the patient.) Discharge Plan Discharge Clinical Impression: Abdominal pain Patient Disposition: Still a Patient Prescriptions: No Action oxcarbazepine 150 mg tablet 150 mg PO BID 15 Days Qty: 30 1RF prazosin 1 mg capsule 1 mg PO BEDTIME 15 Days Qty: 15 1RF oxcarbazepine 600 mg tablet 600 mg PO BID 15 Days Qty: 30 1RF duloxetine 60 mg capsule,delayed release(DR/EC) 60 mg PO QAM 15 Days Qty: 15 1RF quetiapine 400 mg tablet 400 mg PO BEDTIME 15 Days Qty: 15 0RF duloxetine 30 mg capsule,delayed release(DR/EC) 30 mg PO DAILY 15 Days Qty: 15 1RF clonazepam 1 mg tablet 1 mg PO BID PRN (Reason: Anxiety) 15 Days Qty: 30 0RF benztropine 1 mg tablet 1 mg PO .QHS Qty: 30 0RF quetiapine 50 mg tablet 50 mg PO BID PRN (Reason: severe anxiety or agitation) 15 Days Qty: 30 1RF ergocalciferol (vitamin D2) [Vitamin D2] 1,250 mcg (50,000 unit) capsule 1,250 mcg PO QWEEK Qty: 12 0RF Print Language: Azeri
[2023-09-23 11:56] LABS: MANUAL DIFF FLAG NO
[2023-09-23] MEDS: 0.9 % Sodium Chloride 1,000 ML 999 ML IV (11:57)
[2023-09-23] MEDS: ondansetron HCL 4 MG/2 ML VIAL IVPUSH (11:57)
[2023-09-23 12:00] VITALS: BP 118/79; PULSE 72; RESP 18; TEMP 37.1; O2SAT 93
[2023-09-23 12:00] LABS: Basophils Percent Auto 0.4 % (0-2); Eosinophils Absolute Auto 0.4 X10*3/uL (0.0-0.4); Eosinophils Percent Auto 4.7 % (0-4); Hematocrit 41.2 % (37.0-47.0); Hemoglobin 13.8 g/dl (12.0-16.0); Imm Gran Abs Auto 0.03 X10*3/uL (0.00-0.03); Imm Gran Pct Auto 0.3 % (0.0-0.4); Lymphocytes Absolute Auto 1.9 X10*3/uL (1.2-4.9); Lymphocytes Percent Auto 20.8 % (20-40); Mean Corpuscular HGB Conc 33.5 g/dl (31.0-35.0); Mean Corpuscular Hemoglobin 31.5 pg (27.0-33.0); Mean Corpuscular Volume 94.1 fL (80.0-98.0); Mean Platelet Volume 8.5 fL (9.4-12.3); Monocytes Absolute Auto 0.7 X10*3/uL (0.1-1.2); Monocytes Percent Auto 7.6 % (2-11); Neutrophils Percent Auto 66.2 % (45-73); Platelet Count 233 X10*3/uL (160-400); Red Blood Count 4.38 X10*6/uL (4.20-5.50); Red Cell Distribution Width 12.6 % (11.0-16.0)
[2023-09-23] MEDS: Morphine Sulfate 4 MG/ML CARTRIDGE IVPUSH (12:02)
[2023-09-23] MEDS: Diatrizoate Meglumine, Sodium 30 ML SOLUTION PO ×2 (12:06→14:05)
[2023-09-23 12:12] LABS: Alanine Aminotransferase 9 U/L (0-31); Albumin Level 4.2 g/dL (3.5-5.0); Alkaline Phosphatase 137 U/L (39-117); Anion Gap 12 (12-20); Aspartate Amino Transferase 14 U/L (5-31); Bilirubin Total 0.5 mg/dL (0.0-1.0); Blood Urea Nitrogen 7 mg/dL (9-16); Calcium 9.2 mg/dL (8.4-10.2); Carbon Dioxide 27 mmol/L (22-29); Chloride 105 mmol/L (96-108); Creatinine Clr Calc Pharmacy 91.1; Estimated Glomerular Filt Rate > 60; Glucose Random 86 mg/dL (60-115); Magnesium 2.3 mg/dL (1.6-2.6); Potassium 3.5 mmol/L (3.3-5.1); Sodium 140 mmol/L (135-145); Total Protein 7.5 g/dL (6.5-8.0)
[2023-09-23 12:21] LABS: Troponin-I High Sensitivity < 2.7 ng/L (<3.5-17.0)
[2023-09-23 12:43] LABS: Influenza A PCR NEGATIVE (Negative); Influenza B PCR NEGATIVE (Negative); Resp Syncy Virus RNA Qual PCR NEGATIVE (Negative); SARS COV2 PCR INHOUSE NEGATIVE (Negative)
[2023-09-23 12:58] LABS: Lipase 13 U/L (8-78)
[2023-09-23] MEDS: HYDROmorphone HCl 1 MG/ML SYRINGE IVPUSH (13:03)
[2023-09-23 14:00] VITALS: BP 101/56; PULSE 73; RESP 12; TEMP 37
[2023-09-23] MEDS: iohexoL 350 MG/ML 100 ML INFUS..BTL IV (14:04)
[2023-09-23 14:56] LABS: Appearance Urine Clear; Color Urine Dark Yellow; Glucose Urine UA Negative (Negative); Leukocyte Esterase Urine Trace (Negative); Nitrite Urine Negative (Negative); Specific Gravity - Urine >= 1.030 (1.005-1.025); UMIC TRIGGER UACC YES; Urine Blood Negative (Negative); Urine Ketones Trace mg/dL (Negative); Urine Protein Trace mg/dL (Neg-Trace)
[2023-09-23 14:57] LABS: Amphetamine Screen Urine Not Detected (Not Detect); Barbiturates, Urine Not Detected (Not Detect); Benzodiazepines Screen Urine POSITIVE (Not Detect); Buprenorphine Scr Not Detected (Not Detect); Cannabinoid Screen Urine POSITIVE (Not Detect); Cocaine Screen Urine Not Detected (Not Detect); Fentanyl, urine Not Detected (Not Detect); Methadone Screen, Urine Not Detected (Not Detect); Opiate Screen Urine POSITIVE (Not Detect); Oxycodone Screen Urine Not Detected (Not Detect); Phencyclidine Screen Urine Not Detected (Not Detect)
[2023-09-23 15:04] LABS: Bacteria Urine 4+ (None Seen); Hyaline Casts Urine 0-2 /LPF (0-2); UACC Culture Trigger YES
[2023-09-23 15:05] LABS: RBC Urine 0-2 /HPF (0-2)
--- NOTE | 2023-09-23 15:27 | PC.NURSE ---
Spoke to daughter, Gabe, , gave current update, requested to call her if any new information comes up.
[2023-09-23 16:41] VITALS: BP 93/56; PULSE 76; RESP 15; TEMP 36.7; O2SAT 99
[2023-09-23 17:40] VITALS: BP 107/66; PULSE 77; RESP 16; TEMP 36.7; O2SAT 98
== END 2023-09-23 17:40 | disposition home or self-care (01) ==
PROVIDERS: Physician Assistant Medical; Emergency Provider Emergency Medicine; PCP Internal Medicine
DX: R10.30 Lower abdominal pain, unspecified (principal); Z03.818 Encounter for observation for suspected exposure to other biological agents ruled out; R05.9 Cough, unspecified; R06.09 Other forms of dyspnea; Z79.899 Other long term (current) drug therapy
CPT/HCPCS: 0241U; 74177; 80053; 80307; 81001; 81003; 83690; 83735; 84484; 85025; 87086; 93005; 96361; 96374; 96375; 99285; J1170; J2270; J2405; Q9967

== ENCOUNTER → 2023-09-23 11:31 | Outpatient (BNV) | payer OTHER, SELFPAY | PROVIDERS: Emergency Provider Emergency Medicine; PCP Internal Medicine; Visit Provider Internal Medicine Cardiovascular Disease | DX: R10.9 Unspecified abdominal pain (principal) | CPT/HCPCS: 93010 ==

== ENCOUNTER 2023-09-27 07:48 | Outpatient (AMB) | payer OTHER, SELFPAY ==
--- NOTE | 2023-09-27 08:18 | MHC.PC.OV ---
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 Accompanied by: Self / Same As Patient Allergies fentanyl [FENTANYL] Allergy (Intermediate, Verified 09/27/23 08:25) VOMITING Penicillins [PENICILLINS] Allergy (Intermediate, Verified 09/27/23 08:25) ANAPHYLAXIS sertraline [From ZOLOFT] Allergy (Intermediate, Verified 09/27/23 08:25) ANXIETY zolpidem [From AMBIEN] Allergy (Intermediate, Verified 09/27/23 08:25) suicidal attempt with zolpidem Medication List - Last Reconciled 09/27/23 by Valarie Akbar MD benztropine 1 mg PO .QHS ciprofloxacin HCl 500 mg PO Q12H clonazepam 1 mg PO BID PRN 15 days duloxetine 60 mg PO QAM 15 days duloxetine 30 mg PO DAILY 15 days ergocalciferol (vitamin D2) (Vitamin D2) 1,250 mcg PO QWEEK metronidazole 500 mg PO Q12H oxcarbazepine 150 mg PO BID 15 days oxcarbazepine 600 mg PO BID 15 days prazosin 1 mg PO BEDTIME 15 days quetiapine 400 mg PO BEDTIME 15 days quetiapine 50 mg PO BID PRN 15 days Tobacco use date assessed: 06/01/23 Dental Screening Dental Screen Date: 06/01/23 HPI HPI Comments History of Present Illness Details This is a 53-year-old female with bipolar disorder, severe depression and low vitamin-D that comes today as ER discharge follow-up with discharge date 09/23/2023 due to abdominal pain secondary to acute diverticulitis. CT of abdomen was done showing acute diverticulitis and a pancreatic cyst. She currently is in pain exacerbated by any type of food and is associated with nausea and vomiting. Pain is burning like in quality. MRCP was order to evaluate pancreatic cyst and was referred urgently to Gastroenterology. This is her 1st episode of acute diverticulitis. On antibiotics for her acute diverticulitis. Bipolar disorder and severe depression are follow by Psychiatry and she denies any suicidal thoughts. On vitamin-D supplements for her low vitamin-D. She also has anxiety that has been stable with clonazepam and follow by Psychiatry. She said for MRCP she will need Ativan. [facility] Medical History (Updated 09/27/23 @ 08:44 by Valarie Akbar MD) MDD (major depressive disorder), recurrent episode, moderate Physical exam Frequent falls Shoulder pain, bilateral Lumbar pain Chest pain Screening for cervical cancer Osteoarthritis of right knee Left foot pain Urinary incontinence Right foot pain Skin lesion Right knee pain Mid back pain on right side Right sided abdominal pain Cervical radiculopathy Osteoarthritis of acromioclavicular joint Rotator cuff tendonitis Chronic right shoulder pain Right shoulder pain Right hip pain Cervical strain Left foot pain Right foot pain Polyarthralgia Carpal tunnel syndrome Bipolar disorder Depression Anxiety Hypovitaminosis D Constipation by delayed colonic transit Surgical History History of surgery History of right hip replacement History of hemorrhoidectomy History of bunionectomy History of cholecystectomy History of appendectomy Family History Father Depression Prostate cancer Chronic mental illness Mother Diabetes Cancer Breast cancer Maternal Aunt Breast cancer Family/Other Chronic mental illness Other Mental health disorder Social History Household Members: Other Household Members Other:: My dog Housing: House Alcohol intake: never Patient Tobacco Use Status: Never used Tobacco e-Cigarette/Vaping Use: Never Used Second Hand Smoke Exposure: No Substance Use Type: Marijuana service: No Current occupational status: disabled 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 1. Little interest or pleasure in doing things: nearly every day 2. Feeling down, depressed, or hopeless: nearly every day 3. Trouble falling or staying asleep, or sleeping too much: more than half the days 4. Feeling tired or having little energy: nearly every day 5. Poor appetite or overeating: nearly every day 6. Feeling bad about yourself - or that you are a failure or have let yourself or your family down: nearly every day 7. Trouble concentrating on things, such as reading the newspaper or watching television: nearly every day 8. Moving or speaking so slowly that other people could have noticed. Or the opposite - being so fidgety or restless that you have been moving around a lot more than usual: more than half the days 9. Thoughts that you would be better off or of hurting yourself in some way: several days Total score: 23 Depression Screening Interpretation: Positive (no suicidal thoughts) Depression Screening Follow-up: Existing condition, In treatment, Community Mental Health Worker F/U and Follow-up Visit Requested Depression Screening Done: Yes 60451 - PHQ-9 Billing: Yes Source: Developed by Drs. Tai Romeor, Rochelle London, Renny Scales and colleagues, with an educational emily from [employer]. Thrive Questionnaire Date Thrive assessed: 04/14/23 AUDIT C Alcohol Use Questionnaire (AUDIT-C) 1. How often do you have a drink containing alcohol?: Never Total Score: 0 DAVID-7 AMB Questionnaire DAVID-7 Date DAVID - 7 assessed: 04/14/23 Source: Developed by Drs. Tai Romero, Rochelle London, Renny Scales and colleagues, with an educational emily from [employer]. Review of Systems Const All systems reviewed & are unremarkable except as noted in HPI and below Card Denies chest pain at rest, Denies chest pain with activity, Denies edema, Denies irregular heart rhythm, Denies claudication, Denies dyspnea, Denies dyspnea on exertion, Denies orthopnea, Denies paroxysmal nocturnal dyspnea and Denies slow heart rate Resp Denies cough, Denies dyspnea and Denies dyspnea on exertion GI Reports abdominal pain, Denies change in bowel habits, Denies excessive flatus, Reports diarrhea, Reports nausea and Reports vomiting Neuro Denies lack of coordination Psych Reports abnormal sleep pattern, Reports anxiety and Reports depression Physical exam (Primary Care) Vital Signs: Last Vital Signs Pulse 77 09/27/23 08:19 BP 108/62 09/27/23 08:19 Pulse Ox 96 09/27/23 08:19 Oxygen Delivery Method Room Air 09/27/23 08:19 BMI result Body Mass Index 31.6 BMI Assessment/Plan discussion: High BMI High, discussed plan: lifestyle, weight reduction, dietary and physical activity Tobacco/Smoking Status: Tobacco use Status Tobacco use date assessed 06/01/23 09/27/23 08:22 Patient Tobacco Use Status Never used Tobacco 09/27/23 08:22 e-Cigarette/Vaping Use Never Used 09/27/23 08:22 PHQ-9: PHQ-9 Score PHQ-9: Total score 23 09/27/23 08:22 Depression Screening Interpretation: Positive (no suicidal thoughts) Depression Screening Follow-up: Existing condition, In treatment, Community Mental Health Worker F/U and Follow-up Visit Requested Thrive Assessment: Date of Thrive Assessment Date Thrive assessed 04/14/23 09/27/23 08:22 Resp Effort & Inspection: normal respiratory effort Auscultation: clear to auscultation bilaterally Cardio Jugular venous distension: no JVD Rate: regular rate Rhythm: regular rhythm Heart sounds: S1 normal heart sound present and S2 normal heart sound present GI Inspection: Yes distended and Yes obesity Palpation (GI): Soft to palpation and Tenderness to palpation present (GI) in the epigastrum, in the LLQ, in the RLQ, in the LUQ, in the RUQ and periumbilically Auscultation: normal bowel sounds Extrem General: Yes full ROM Psych Affect: Sad affect present Assessment and Plan Assessment & Plan (1) Pancreatic cyst: Code(s): K86.2 - Cyst of pancreas Plan: MRCP ordered. Referred to Gastroenterology. (2) Acute diverticulitis: Code(s): K57.92 - Diverticulitis of intestine, part unspecified, without perforation or abscess without bleeding Plan: Continue Cipro and metronidazole. Referred to Gastroenterology. Advised clear liquid diet. (3) Bipolar affective, depress, mod: Code(s): F31.32 - Bipolar disorder, current episode depressed, moderate Plan: Continue ox carbamazepine. Follow-up with psychiatry. (4) DAVID (generalized anxiety disorder): Code(s): F41.1 - Generalized anxiety disorder Plan: Continue benzodiazepines as needed. Follow-up with psychiatry. (5) Hypovitaminosis D: Code(s): E55.9 - Vitamin D deficiency, unspecified Plan: Continue vitamin-D supplements. (6) Severe major depression without psychotic features: Code(s): F32.2 - Major depressive disorder, single episode, severe without psychotic features Plan: Continue as carbamazepine. Follow-up with psychiatry. Orders: Orders Lipase Today R10.9 - Unspecified abdominal pain Comprehensive Met. Panel Today R10.9 - Unspecified abdominal pain MR MRCP Today K86.2 - Cyst of pancreas Complete Blood Count Auto Diff Today R10.9 - Unspecified abdominal pain Referrals Gastroenterology Referral K86.2 - Cyst of pancreas, R10.9 - Unspecified abdominal pain Medications: New lorazepam (Ativan) Take 45 minutes before MRI. 1 mg (2 x 0.5 mg) PO DAILY 1 day PRN 2 tabs 0RF anxiety Coding Level of Care Code Est Pt Level 4 (28126) Complex EM visit Add On G2211 Diagnoses Pancreatic cyst K86.2 Acute diverticulitis K57.92 Bipolar affective, depress, mod F31.32 DAVID (generalized anxiety disorder) F41.1 Hypovitaminosis D E55.9 Severe major depression without psychotic features F32.2 Time Spent (min) 25
[2023-09-27 08:19] VITALS: BP 108/62; PULSE 77; O2SAT 96; BMI 31.6
== END 2023-09-27 08:44 | disposition home or self-care (01) ==
PROVIDERS: PCP Internal Medicine; Visit Provider Internal Medicine
DX: K86.2 Cyst of pancreas (principal); K57.92 Diverticulitis of intestine, part unspecified, without perforation or abscess without bleeding; F31.32 Bipolar disorder, current episode depressed, moderate; F41.1 Generalized anxiety disorder; E55.9 Vitamin D deficiency, unspecified; F32.2 Major depressive disorder, single episode, severe without psychotic features
CPT/HCPCS: 99214; G2211

== ENCOUNTER 2023-09-27 09:01 | Outpatient (REF) | payer OTHER, SELFPAY ==
[2023-09-27 10:14] LABS: Alanine Aminotransferase 16 U/L (0-31); Albumin Level 4.5 g/dL (3.5-5.0); Alkaline Phosphatase 147 U/L (39-117); Anion Gap 14 (12-20); Aspartate Amino Transferase 18 U/L (5-31); Bilirubin Total 0.3 mg/dL (0.0-1.0); Blood Urea Nitrogen 6 mg/dL (9-16); Calcium 9.3 mg/dL (8.4-10.2); Carbon Dioxide 26 mmol/L (22-29); Chloride 107 mmol/L (96-108); Estimated Glomerular Filt Rate > 60; Glucose Random 66 mg/dL (60-115); Lipase 23 U/L (8-78); Potassium 3.5 mmol/L (3.3-5.1); Sodium 143 mmol/L (135-145)
== END 2023-09-27 09:02 | disposition home or self-care (01) ==
LOC: HO.LAB 09:01
PROVIDERS: PCP Internal Medicine; Visit Provider Internal Medicine
DX: R10.9 Unspecified abdominal pain (principal)
CPT/HCPCS: 36415; 80053; 83690

== ENCOUNTER 2023-09-27 09:24 | Emergency (ER) | payer OTHER, SELFPAY ==
--- NOTE | ~2023-09-27 | CT_ITS ---
EXAMINATION: CT ABDOMEN AND PELVIS WITH CONTRAST CLINICAL INFORMATION: Recent diverticulitis. Worsening pain and syncope. COMPARISON: 09/23/2023. TECHNIQUE: Multidetector volumetric images were obtained from the superior aspect of the liver through the pubic symphysis following administration 85 mL of Omnipaque 350 intravenous contrast. Sagittal and coronal reformatted images were obtained on the technologist's workstation. Oral contrast: No This CT examination was performed using dose optimization techniques as appropriate, variously including the following: *Automated exposure control *Adjustment of mA and/or kV according to patient size (this includes techniques or standardized protocols for targeted exams where dose is matched to indication/reason for exam; i.e. extremities or head) *Use of iterative reconstruction technique DLP: 698 mGy-cm FINDINGS: LUNG BASES: No pulmonary consolidation or pleural effusion. Peripheral linear opacities of mild atelectasis in each lower lobe. HEPATOBILIARY: Liver is unremarkable. Gallbladder is surgically absent. The common bile duct is likely chronically mildly dilated and measures up to 0.8 cm diameter, unchanged compared to 09/23/2023. The intrahepatic ducts are mildly dilated. No new observations. PANCREAS: No acute findings. A cyst of approximately 1 cm maximum dimension is present in the superior aspect of the pancreatic body. No pancreatic duct dilatation. SPLEEN: Normal. ADRENAL GLANDS: Normal. KIDNEYS AND URETERS: Kidneys have normal size and cortical thickness. No perinephric edema, urolithiasis or hydroureteronephrosis. Small simple cysts of both kidneys. No renal imaging follow-up is recommended for simple cysts. The ureters are unremarkable. BLADDER: Normal. BOWEL AND PERITONEUM: No dilated bowel loops. Compared to 09/23/2023, interval decreased amount of fecal material in the descending and proximal sigmoid colon. The descending colon is underdistended and the thickness of the colonic wall appears to be commensurate with the degree of lack of distention. There has been interval resolution of the pericolonic fat stranding at the distal descending and proximal sigmoid colon. There is no evidence of bowel perforation or abscess. The appendix appears to be surgically absent. ABDOMINAL WALL: Unremarkable. VASCULATURE: Unremarkable. LYMPH NODES: No pathologic sized lymph nodes in the abdomen or pelvis. No inguinal lymphadenopathy. PELVIC VISCERA: No uterine or adnexal mass. No pelvic free fluid. MUSCULOSKELETAL: Degenerative narrowing of disc space, vacuum disc phenomenon and traction osteophyte formation at L4-L5. Interbody fusion cages are well-positioned in the disc space of L5-S1. No acute or suspicious osseous abnormality. No evidence of loosening of the visualized components of the right total hip arthroplasty. Moderate osteoarthritis of the left hip. CT/CT abdomen pelvis w IV con IMPRESSION: * Interval decreased amount of fecal material in the colon and interval resolution of inflammatory fat stranding around the region of junction of the distal descending and proximal sigmoid colon. Perhaps the mild inflammatory changes seen on the prior exam were from mild stercoral colitis. * There are no new areas of pericolonic fat stranding. No bowel perforation. No free fluid or abscess. * Common duct and intrahepatic ducts are likely chronically mildly dilated, status post cholecystectomy. * 1 cm cyst in the superior pancreatic body is unchanged compared to 09/23/2023. As previously mentioned, recommend abdomen MRI follow up to further characterize the abnormality, and to serve as a baseline should intermittent MR imaging surveillance be required.
[2023-09-27 09:27] VITALS: BP 128/81; PULSE 66; RESP 18; O2SAT 99; BMI 33.3
--- NOTE | 2023-09-27 09:29 | ECG_ITS ---
Test Reason : ams Blood Pressure : / mmHG Vent. Rate : 070 BPM Atrial Rate : 070 BPM P-R Int : 164 ms QRS Dur : 080 ms QT Int : 416 ms P-R-T Axes : 033 037 022 degrees QTc Int : 449 ms Normal sinus rhythm Normal ECG When compared with ECG of 23-SEP-2023 11:40, No significant change was found Referred By: Generic ED Physician Electronically Signed By:ANIKET VALLADARES MD
[2023-09-27 09:33] LABS: Glucose, Whole Blood 59 mg/dL (60-115)
[2023-09-27 09:34] VITALS: BP 128/81; PULSE 66; RESP 18; TEMP 36.2; O2SAT 97; O2SAT 99
[2023-09-27 10:19] LABS: Glucose, Whole Blood 111 mg/dL (60-115)
--- NOTE | 2023-09-27 10:29 | ED_ITS ---
HPI - Syncope General Chief Complaint: Syncope Stated Complaint: syncope Time Seen by Provider: 09/27/23 09:45 Source: patient and old records reviewed Mode of arrival: wheelchair Limitations: no limitations History of Present Illness ED Provider: NACHO HPI narrative: 53 yo female with PMH of hypoglycemia but never syncope from it, new pancreatic cyst, bipolar, PTSD, anxiety, diverticulitis just dx on started on cipro flagyl notes she still isn't eating and when she does she has pain in lower abdomen that radiates to the back. No fevers, + n/v. Her PCP saw her today and referred her for repeat labs. In phlebotomy she had syncopal episode no trauma. She denies eating since did drink some juice last night. BS 50s on rapid response able to drink juice here but c/o nausea. Up to 111. 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) -: second(s) Prodromal symptoms: lightheaded Witnessed: Yes - by Bystander Context: at rest Injuries sustained associated with event: none Current symptoms: nausea and abdominal pain History: other (low blood sugar) Related Data Previous Rx's ?Medication ?Instructions ?Recorded duloxetine 30 mg capsule,delayed 30 mg PO DAILY 15 days #15 caps 07/06/23 release duloxetine 60 mg capsule,delayed 60 mg PO QAM 15 days #15 caps 07/06/23 release oxcarbazepine 150 mg tablet 150 mg PO BID 15 days #30 tabs 07/06/23 oxcarbazepine 600 mg tablet 600 mg PO BID 15 days #30 tabs 07/06/23 prazosin 1 mg capsule 1 mg PO BEDTIME 15 days #15 caps 07/06/23 quetiapine 400 mg tablet 400 mg PO BEDTIME 15 days #15 tabs 07/06/23 benztropine 1 mg tablet 1 mg PO .QHS #30 tabs 07/15/23 clonazepam 1 mg tablet 1 mg PO BID PRN Anxiety 15 days 07/15/23 #30 tabs ergocalciferol (vitamin D2) 1,250 1,250 mcg PO QWEEK #12 caps 07/15/23 mcg (50,000 unit) capsule (Vitamin D2) quetiapine 50 mg tablet 50 mg PO BID PRN severe anxiety or 07/15/23 agitation 15 days #30 tabs ciprofloxacin HCl 500 mg tablet 500 mg PO Q12H #14 tabs 09/23/23 metronidazole 500 mg tablet 500 mg PO Q12H #14 tabs 09/23/23 lorazepam 0.5 mg tablet (Ativan) 1 mg (2 x 0.5 mg) PO DAILY PRN 09/27/23 anxiety 1 day #2 tabs Allergies Allergy/AdvReac Type Severity Reaction Status Date / Time fentanyl [FENTANYL] Allergy Intermediate VOMITING Verified 09/27/23 09:30 Penicillins [PENICILLINS] Allergy Intermediate ANAPHYLAXIS Verified 09/27/23 09:30 sertraline [From ZOLOFT] Allergy Intermediate ANXIETY Verified 09/27/23 09:30 zolpidem [From AMBIEN] Allergy Intermediate suicidal Verified 09/27/23 09:30 attempt with zolpidem Review of Systems 2 Review of Systems: Constitutional : No Weight loss, No Fever, No Chills ENT/Mouth : No sore throat, No Rhinorrhea Eyes: No Swelling, No Redness Cardiovascular : No Chest Pain, No SOB, NoEdema Respiratory : No Cough, No Sputum, No Wheezing Gastrointestinal : Positive Nausea, Positive Vomiting, positive Diarrhea, positive abdominal Pain, No Hematochezia, No Melena Genitourinary : No Dysuria, No Urinary Frequency, No Hematuria, No Urgency Musculoskeletal : No joint pain, No Myalgias, No Joint Swelling Skin : No Skin Lesions, No rash Neuro : pos Weakness, No Numbness, No Dizziness, No Headache Psych : No Anxiety/Panic, No Depression All other systems reviewed and are negative. [facility] Past Medical History Attestation statement: The following information was validated with the patient. Source: old records reviewed Medical History MDD (major depressive disorder), recurrent episode, moderate Physical exam Frequent falls Shoulder pain, bilateral Lumbar pain Chest pain Screening for cervical cancer Osteoarthritis of right knee Left foot pain Urinary incontinence Right foot pain Skin lesion Right knee pain Mid back pain on right side Right sided abdominal pain Cervical radiculopathy Osteoarthritis of acromioclavicular joint Rotator cuff tendonitis Chronic right shoulder pain Right shoulder pain Right hip pain Cervical strain Left foot pain Right foot pain Polyarthralgia Carpal tunnel syndrome Bipolar disorder Depression Anxiety Hypovitaminosis D Constipation by delayed colonic transit Surgical History History of surgery History of right hip replacement History of hemorrhoidectomy History of bunionectomy History of cholecystectomy History of appendectomy Family History Family History Father Depression Prostate cancer Chronic mental illness Mother Diabetes Cancer Breast cancer Maternal Aunt Breast cancer Family/Other Chronic mental illness Other Mental health disorder Social History Social History Household Members: Other Household Members Other:: My dog Housing: House Alcohol intake: never Patient Tobacco Use Status: Never used Tobacco Smoked in Last 30 Days: No e-Cigarette/Vaping Use: Never Used Second Hand Smoke Exposure: No Substance Use Type: Marijuana Advance Directives: No Advance Directives Information Provided: Yes Do you have a plan to hurt others: No Plan Patient : No service: No Current occupational status: disabled 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 Oriented X3. No acute distress. Eyes: Pupils equal, round and reactive to light. ENT: Pharynx normal. Neck: Normal inspection. Neck supple. CVS: Normal heart rate and rhythm. Pulses normal. Respiratory: No respiratory distress. Breath sounds normal. Abdomen: Soft and mild lower abdominal ttp no rebound but reports pain Skin: Skin warm and dry. Normal skin color. Normal skin turgor. Extremities: No lower extremity edema. No calf ttp Neuro: Oriented X 3. No motor deficit. No sensory deficit. Medications Administered Discontinued Medications Generic Name Dose Route Start Last Admin Trade Name Freq PRN Reason Stop Dose Admin Sodium Chloride 1,000 mls @ 999 mls/hr 09/27/23 10:21 09/27/23 12:43 Ns IV 09/27/23 11:21 Infused .Q1H1M ONE Infusion Iohexol 100 ml 09/27/23 12:06 09/27/23 12:07 Iohexol 350 Mg/Ml 100 Ml Infus..Btl IV 09/27/23 12:07 85 ml ONCE ONE Administration Morphine Sulfate 4 mg 09/27/23 10:21 09/27/23 10:36 Morphine Sulfate 4 Mg/Ml Cartridge IVPUSH 09/27/23 10:22 4 mg ONCE ONE Administration Protocol Ondansetron HCl 4 mg 09/27/23 10:21 09/27/23 10:37 Ondansetron Hcl 4 Mg/2 Ml Vial IVPUSH 09/27/23 10:22 4 mg ONCE ONE Administration Medical Decision Making Medical Decision Making MDM Narrative: 53 yo female with PMH of hypoglycemia but never syncope from it, new pancreatic cyst, bipolar, PTSD, anxiety, diverticulitis here with c/o persistent abdominal pain n/v and not eating did drink juice last night was in lab today and then syncopized no trauma no seizures now reports persistent pain - has has low blood sugar before. She did respond to juice here. Will obtain labs, hydrate, IV morphine for pain. CT scan for worsening disease. Differential Diagnosis Differential Diagnoses: The differential diagnosis associated with the presentation includes diverticulitis, poor PO intake, pancreatic mass no CP/SOB to suggest VTE or ACS in regards to syncope Admission/Observation Consideration of admission/observation: Escalation of care including admission/observation considered Lab Data [facility] Lab Attestation statement: I reviewed the patient's lab results. 09/27/23 10:35 09/27/23 10:35 Labs: Lab Results 09/27/23 09/27/23 09/27/23 Range/Units 09:30 10:10 10:35 WBC 6.8 (4.8-10.8) X10*3/uL RBC 4.40 (4.20-5.50) X10*6/uL Hgb 14.0 (12.0-16.0) g/dl Hct 41.4 (37.0-47.0) % MCV 94.1 (80.0-98.0) fL MCH 31.8 (27.0-33.0) pg MCHC 33.8 (31.0-35.0) g/dl RDW 12.9 (11.0-16.0) % Plt Count 303 D (160-400) X10*3/uL MPV 8.8 L (9.4-12.3) fL Immature Gran % (Auto) 0.1 (0.0-0.4) % Neut % (Auto) 51.2 (45-73) % Lymph % (Auto) 34.7 (20-40) % Campbell % (Auto) 6.8 (2-11) % Eos % (Auto) 6.3 H (0-4) % Baso % (Auto) 0.9 (0-2) % Lymph # (Auto) 2.4 (1.2-4.9) X10*3/uL Campbell # (Auto) 0.5 (0.1-1.2) X10*3/uL Eos # (Auto) 0.4 (0.0-0.4) X10*3/uL Baso # (Auto) 0.1 (0.0-0.2) X10*3/uL Abs Immat Gran (auto) 0.01 (0.00-0.03) X10*3/uL Absolute Neuts (auto) 3.5 (2.0-8.3) x10*3/uL Absolute Nucleated RBC 0.000 (0.0-0.012) X10*3/uL Nucleated RBC % (auto) 0.0 (0.0-0.2) /100WBC Smear Tech's Comments VERIFIED Sodium 142 (135-145) mmol/L Potassium 3.4 (3.3-5.1) mmol/L Chloride 108 (96-108) mmol/L Carbon Dioxide 26 (22-29) mmol/L Anion Gap 11 L (12-20) BUN 6 L (9-16) mg/dL Creatinine 0.85 (0.5-1.4) mg/dL Estim Creat Clear Calc 83.1 Estimated GFR > 60 POC Glucose 59 L* 111 (60-115) mg/dL Random Glucose 66 (60-115) mg/dL Calcium 9.3 (8.4-10.2) mg/dL Magnesium 2.4 (1.6-2.6) mg/dL Total Bilirubin 0.3 (0.0-1.0) mg/dL Direct Bilirubin 0.1 (0.0-0.5) mg/dL AST 18 (5-31) U/L ALT 16 (0-31) U/L Alkaline Phosphatase 149 H (39-117) U/L Troponin I High Sens < 2.7 (<3.5-17.0) ng/L Total Protein 7.9 (6.5-8.0) g/dL Albumin 4.5 (3.5-5.0) g/dL Lipase 23 (8-78) U/L Independent Interpretation I performed an independent interpretation of an: EKG and CT Scan Interpretation: Rate: 70 Rhythm: NSR [place]: normal Normal P waves. Normal OLENA. Normal QRS complex. ST T wave : artifact noted no LILA, inverted t wave III qTC: 449 prior studies: no acute ischemia The study has been interpreted contemporaneously by me. . Radiology Impression Discussion of test interpretation with radiology: I have reviewed the radiologist's reading. External Record Review External record reviewed: Inpatient record and Outpatient record Discharge Plan Discharge Clinical Impression: Syncope, Abdominal pain, Hypoglycemia Patient Disposition: Still a Patient Prescriptions: No Action oxcarbazepine 150 mg tablet 150 mg PO BID 15 Days Qty: 30 1RF prazosin 1 mg capsule 1 mg PO BEDTIME 15 Days Qty: 15 1RF oxcarbazepine 600 mg tablet 600 mg PO BID 15 Days Qty: 30 1RF duloxetine 60 mg capsule,delayed release(DR/EC) 60 mg PO QAM 15 Days Qty: 15 1RF quetiapine 400 mg tablet 400 mg PO BEDTIME 15 Days Qty: 15 0RF duloxetine 30 mg capsule,delayed release(DR/EC) 30 mg PO DAILY 15 Days Qty: 15 1RF clonazepam 1 mg tablet 1 mg PO BID PRN (Reason: Anxiety) 15 Days Qty: 30 0RF benztropine 1 mg tablet 1 mg PO .QHS Qty: 30 0RF quetiapine 50 mg tablet 50 mg PO BID PRN (Reason: severe anxiety or agitation) 15 Days Qty: 30 1RF ergocalciferol (vitamin D2) [Vitamin D2] 1,250 mcg (50,000 unit) capsule 1,250 mcg PO QWEEK Qty: 12 0RF metronidazole 500 mg tablet 500 mg PO Q12H Qty: 14 0RF ciprofloxacin HCl 500 mg tablet 500 mg PO Q12H Qty: 14 0RF lorazepam [Ativan] 0.5 mg tablet 1 mg PO DAILY PRN (Reason: anxiety) 1 Days Qty: 2 0RF Rx Instructions: Take 45 minutes before MRI. Print Language: Malay
[2023-09-27] MEDS: 0.9 % Sodium Chloride 1,000 ML 999 ML IV (10:36)
[2023-09-27] MEDS: Morphine Sulfate 4 MG/ML CARTRIDGE IVPUSH (10:36)
[2023-09-27] MEDS: ondansetron HCL 4 MG/2 ML VIAL IVPUSH (10:37)
[2023-09-27 10:46] LABS: Basophils Absolute Auto 0.1 X10*3/uL (0.0-0.2); Basophils Percent Auto 0.9 % (0-2); Eosinophils Absolute Auto 0.4 X10*3/uL (0.0-0.4); Eosinophils Percent Auto 6.3 % (0-4); Hematocrit 41.4 % (37.0-47.0); Imm Gran Abs Auto 0.01 X10*3/uL (0.00-0.03); Imm Gran Pct Auto 0.1 % (0.0-0.4); Lymphocytes Absolute Auto 2.4 X10*3/uL (1.2-4.9); Lymphocytes Percent Auto 34.7 % (20-40); MANUAL DIFF FLAG SCAN; Mean Corpuscular HGB Conc 33.8 g/dl (31.0-35.0); Mean Corpuscular Hemoglobin 31.8 pg (27.0-33.0); Mean Corpuscular Volume 94.1 fL (80.0-98.0); Mean Platelet Volume 8.8 fL (9.4-12.3); Monocytes Absolute Auto 0.5 X10*3/uL (0.1-1.2); Monocytes Percent Auto 6.8 % (2-11); Neutrophils Absolute Auto 3.5 x10*3/uL (2.0-8.3); Neutrophils Percent Auto 51.2 % (45-73); Platelet Count 303 X10*3/uL (160-400); Red Cell Distribution Width 12.9 % (11.0-16.0); SCAN SMEAR FLAG 1; White Blood Count 6.8 X10*3/uL (4.8-10.8)
[2023-09-27 11:01] LABS: Alanine Aminotransferase 16 U/L (0-31); Albumin Level 4.5 g/dL (3.5-5.0); Alkaline Phosphatase 149 U/L (39-117); Anion Gap 11 (12-20); Aspartate Amino Transferase 18 U/L (5-31); Bilirubin Direct 0.1 mg/dL (0.0-0.5); Bilirubin Total 0.3 mg/dL (0.0-1.0); Blood Urea Nitrogen 6 mg/dL (9-16); Calcium 9.3 mg/dL (8.4-10.2); Carbon Dioxide 26 mmol/L (22-29); Chloride 108 mmol/L (96-108); Creatinine Clr Calc Pharmacy 83.1; Estimated Glomerular Filt Rate > 60; Glucose Random 66 mg/dL (60-115); Lipase 23 U/L (8-78); Magnesium 2.4 mg/dL (1.6-2.6); Potassium 3.4 mmol/L (3.3-5.1); Sodium 142 mmol/L (135-145); Total Protein 7.9 g/dL (6.5-8.0)
[2023-09-27 11:10] LABS: SLIDE REVIEW VERIFIED; Troponin-I High Sensitivity < 2.7 ng/L (<3.5-17.0)
[2023-09-27 12:00] VITALS: BP 106/65; PULSE 57; RESP 10; TEMP 36.4; O2SAT 99
[2023-09-27] MEDS: iohexoL 350 MG/ML 100 ML INFUS..BTL IV (12:07)
[2023-09-27 15:58] LABS: Appearance Urine Clear; Color Urine Yellow; Glucose Urine UA Negative (Negative); Leukocyte Esterase Urine Negative (Negative); Nitrite Urine Negative (Negative); Specific Gravity - Urine >= 1.030 (1.005-1.025); Urine Blood Negative (Negative); Urine Ketones Negative (Negative); Urine Protein Negative (Neg-Trace)
[2023-09-27 17:18] VITALS: BP 106/65; PULSE 57; RESP 10; TEMP 36.4; O2SAT 99
== END 2023-09-27 17:18 | disposition home or self-care (01) ==
PROVIDERS: Emergency Medicine; Emergency Provider Internal Medicine; PCP Internal Medicine
DX: R55 Syncope and collapse (principal); R11.2 Nausea with vomiting, unspecified; R10.9 Unspecified abdominal pain; R07.89 Other chest pain; R10.2 Pelvic and perineal pain; Z79.899 Other long term (current) drug therapy
CPT/HCPCS: 36415; 74177; 80048; 80076; 81003; 82947; 83690; 83735; 84484; 85025; 93005; 96361; 96374; 96375; 99284; 99285; J2270; J2405; Q9967

== ENCOUNTER → 2023-09-27 09:29 | Outpatient (BNV) | payer OTHER, SELFPAY | PROVIDERS: Emergency Provider Internal Medicine; PCP Internal Medicine; Visit Provider Internal Medicine Cardiovascular Disease | DX: R41.82 Altered mental status, unspecified (principal) | CPT/HCPCS: 93010 ==

== ENCOUNTER 2023-10-12 09:08 | Outpatient (AMB) | payer OTHER, SELFPAY ==
--- NOTE | 2023-10-12 09:14 | A.OFFPC_ITS ---
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 Accompanied by: Self / Same As Patient Allergies fentanyl [FENTANYL] Allergy (Intermediate, Verified 10/12/23 09:24) VOMITING Penicillins [PENICILLINS] Allergy (Intermediate, Verified 10/12/23 09:24) ANAPHYLAXIS sertraline [From ZOLOFT] Allergy (Intermediate, Verified 10/12/23 09:24) ANXIETY zolpidem [From AMBIEN] Allergy (Intermediate, Verified 10/12/23 09:24) suicidal attempt with zolpidem Medication List - Last Reconciled 10/12/23 by Valarie Akbar MD benztropine 1 mg PO .QHS clonazepam 1 mg PO BID PRN 15 days duloxetine 60 mg PO QAM 15 days duloxetine 30 mg PO DAILY 15 days ergocalciferol (vitamin D2) (Vitamin D2) 1,250 mcg PO QWEEK lorazepam (Ativan) 1 mg (2 x 0.5 mg) PO DAILY PRN 1 day oxcarbazepine 150 mg PO BID 15 days oxcarbazepine 600 mg PO BID 15 days prazosin 1 mg PO BEDTIME 15 days quetiapine 400 mg PO BEDTIME 15 days quetiapine 50 mg PO BID PRN 15 days Tobacco use date assessed: 06/01/23 Dental Screening Dental Screen Date: 06/01/23 HPI HPI Comments History of Present Illness Details This is a 53-year-old female with bipolar disorder depressed mood follow by Psychiatry, constipation and pancreatic cyst that comes today as hospital discharge follow-up with discharge date 09/27/2023 due to an episode of syncope while in phlebotomy. She had a sugar of 59 and she said this is not the 1st time that low blood sugar is associated with syncope. Will be referred to Endocrinology. She complains of abdominal pain more prominent in right upper quadrant that has been present for over a month and has a pancreatic cyst in which MRI of the abdomen will be done next month. She has depression and follows with psychiatry what would like to go to partial program outpatient from 09:00 to 14:00 to talk with people. She has constipation and was advised some dietary changes and a high-fiber diet. Walks with a cane for gait stability. [facility] Medical History (Updated 10/12/23 @ 09:35 by Valarie Akbar MD) MDD (major depressive disorder), recurrent episode, moderate Physical exam Frequent falls Shoulder pain, bilateral Lumbar pain Chest pain Screening for cervical cancer Osteoarthritis of right knee Left foot pain Urinary incontinence Right foot pain Skin lesion Right knee pain Mid back pain on right side Right sided abdominal pain Cervical radiculopathy Osteoarthritis of acromioclavicular joint Rotator cuff tendonitis Chronic right shoulder pain Right shoulder pain Right hip pain Cervical strain Left foot pain Right foot pain Polyarthralgia Carpal tunnel syndrome Bipolar disorder Depression Anxiety Hypovitaminosis D Constipation by delayed colonic transit Surgical History History of surgery History of right hip replacement History of hemorrhoidectomy History of bunionectomy History of cholecystectomy History of appendectomy Family History Father Depression Prostate cancer Chronic mental illness Mother Diabetes Cancer Breast cancer Maternal Aunt Breast cancer Family/Other Chronic mental illness Other Mental health disorder Social History Household Members: Other Household Members Other:: My dog Housing: House Alcohol intake: never Patient Tobacco Use Status: Never used Tobacco e-Cigarette/Vaping Use: Never Used Second Hand Smoke Exposure: No Substance Use Type: Marijuana service: No Current occupational status: disabled 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 Tai Romero, Rochelle London, Renny Scales and colleagues, with an educational emily from [employer]. Review of Systems Const All systems reviewed & are unremarkable except as noted in HPI and below Card Denies chest pain at rest, Denies chest pain with activity, Denies edema, Denies irregular heart rhythm, Denies claudication, Denies orthopnea, Denies paroxysmal nocturnal dyspnea and Denies slow heart rate GI Reports abdominal pain Neuro Reports memory loss Psych Reports depression and Reports memory loss Physical exam (Primary Care) Vital Signs: Last Vital Signs BP 110/74 10/12/23 09:15 BMI result Body Mass Index 31.9 BMI Assessment/Plan discussion: High BMI High, discussed plan: lifestyle, weight reduction, dietary and physical activity Tobacco/Smoking Status: Tobacco use Status Tobacco use date assessed 06/01/23 10/12/23 09:18 Patient Tobacco Use Status Never used Tobacco 10/12/23 09:18 e-Cigarette/Vaping Use Never Used 10/12/23 09:18 Thrive Assessment: Date of Thrive Assessment Date Thrive assessed 04/14/23 10/12/23 09:18 Const Limitations: ambulation with cane Cardio Jugular venous distension: no JVD Rate: regular rate Rhythm: regular rhythm Heart sounds: S1 normal heart sound present and S2 normal heart sound present GI Inspection: Yes normal to inspection Palpation (GI): Soft to palpation and Tenderness to palpation present (GI) in the RUQ Auscultation: normal bowel sounds Extrem General: Yes full ROM Assessment and Plan Assessment & Plan (1) Bipolar affective, depress, mod: Code(s): F31.32 - Bipolar disorder, current episode depressed, moderate Plan: Continue ox carbamazepine. Follow-up with psychiatry. (2) Constipation by delayed colonic transit: Code(s): K59.01 - Slow transit constipation Plan: Follow a high-fiber diet. (3) Pancreatic cyst: Code(s): K86.2 - Cyst of pancreas Plan: MRI of the abdomen pending for next month. Follow-up with Gastroenterology. (4) Hypoglycemia: Code(s): E16.2 - Hypoglycemia, unspecified Plan: Referred to endocrinology. Orders: Referrals Endocrinology Referral E16.2 - Hypoglycemia, unspecified Coding Level of Care Code Est Pt Level 4 (43646) Complex EM visit Add On G2211 Diagnoses Bipolar affective, depress, mod F31.32 Constipation by delayed colonic transit K59.01 Pancreatic cyst K86.2 Hypoglycemia E16.2 Time Spent (min) 23
[2023-10-12 09:15] VITALS: BP 110/74; BMI 31.9
== END 2023-10-12 09:44 | disposition home or self-care (01) ==
PROVIDERS: PCP Internal Medicine; Visit Provider Internal Medicine
DX: F31.32 Bipolar disorder, current episode depressed, moderate (principal); K59.01 Slow transit constipation; K86.2 Cyst of pancreas; E16.2 Hypoglycemia, unspecified
CPT/HCPCS: 99214; G2211

== ENCOUNTER 2023-10-14 07:53 | Outpatient (AMB) | payer OTHER, SELFPAY ==
[2023-10-14 08:01] VITALS: BP 90/64; PULSE 62; BMI 32.2
--- NOTE | 2023-10-14 08:01 | A.OFFVIS_ITS ---
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 Patient was fasting for labs. Blood glucose was 66 on lab draw. BG was in 50s per rapid response. Recheck after juice 111. She noted not having eaten anything in 5 days and drinking less than usual-she had been diagnosed with diverticulitis on 09/22 and was taking ciprofloxacin and metronidazole 09/23/23-Patient evaluated in the ER for abdominal pain. CT performed 1. Inflammatory changes in the distal descending colon near the sigmoid junction. Findings may represent acute diverticulitis or focal colitis. This is likely the cause of the patient's abdominal pain. Her toxicology was positive for marijuana and opiates. Unclear if she was given the latter in ER 07/12/23-sent to ER from phlebotomy for near syncope. Exam, vitals reassuring. QT C 460 on EKG. Meds adjusted 07/16/23 by psychiatry Patient reports that 09/27/23 was her only time actually passing out. On other occassions she has felt close Patient reports frequently feeling dizzy. This worsens with head movements, rolling over in bed, bending over and up quickly. Denies lightheadedness on standing from sitting. She denies chest discomfort, denies palpitations. She reports frequent use of marijuana. She denies alcohol use. Denies other recreational drug use Patient endorses she does not eat regular meals. Skips often Current medications include benztropine, clonazepam, cymbalta, ativan, oxcarbazepine, seroquel and prazosin. She continues to c/o generalized abdominal discomfort - present for over a month. Reports bloating x months. pancreatic cyst on CT -MRI of the abdomen will be done next month and gastroenterology referral was placed by PCP. She has some issues with constipation. ROS see HPI PHYSICAL EXAM: GENERAL: Alert and oriented x 3. NAD EYES: EOMI. Anicteric. HENT: Moist mucous membranes. No scleral icterus. No cervical lymphadenopathy. LUNGS: Clear to auscultation bilaterally. CARDIOVASCULAR: Regular rate and rhythm. No murmur appreciated ABDOMEN: Soft, non-tender +bs EXTREMITIES: No edema. Non-tender. SKIN: No rashes or lesions. Warm. NEUROLOGIC: No focal neurological deficits. CN II-XII grossly intact PSYCHIATRIC: Cooperative. Appropriate mood and affect [facility] Medical History MDD (major depressive disorder), recurrent episode, moderate Physical exam Frequent falls Shoulder pain, bilateral Lumbar pain Chest pain Screening for cervical cancer Osteoarthritis of right knee Left foot pain Urinary incontinence Right foot pain Skin lesion Right knee pain Mid back pain on right side Right sided abdominal pain Cervical radiculopathy Osteoarthritis of acromioclavicular joint Rotator cuff tendonitis Chronic right shoulder pain Right shoulder pain Right hip pain Cervical strain Left foot pain Right foot pain Polyarthralgia Carpal tunnel syndrome Bipolar disorder Depression Anxiety Hypovitaminosis D Constipation by delayed colonic transit Surgical History History of surgery History of right hip replacement History of hemorrhoidectomy History of bunionectomy History of cholecystectomy History of appendectomy Family History Father Depression Prostate cancer Chronic mental illness Mother Diabetes Cancer Breast cancer Maternal Aunt Breast cancer Family/Other Chronic mental illness Other Mental health disorder Social History Household Members: Other Household Members Other:: My dog Housing: House Alcohol intake: never Patient Tobacco Use Status: Never used Tobacco e-Cigarette/Vaping Use: Never Used Second Hand Smoke Exposure: No Substance Use Type: Marijuana service: No Current occupational status: disabled 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 Cognitive needs: No Hearing needs: No Vision needs: Yes (glasses) Physical Exam Vital Signs: Last Vital Signs Pulse 62 10/14/23 08:01 BP 90/64 10/14/23 08:01 BMI result Body Mass Index 32.2 Results AMB Hemoglobin A1c AMB Hemoglobin A1c 5.2 % Last Edit by GIOVANNA Hanna on 10/14/23 08:21 Results Reviewed Results Reviewed: Laboratory Last Values Glucose (Clinic) 94 mg/dL (60-115) 10/14/23 08:12 Hgb A1c (Clinic) 5.2 % (4.0-6.0) 10/14/23 08:15 Assessment & Plan Assessment & Plan (1) Hypoglycemia: Code(s): E16.2 - Hypoglycemia, unspecified Category: Medical Plan: Patient has multiple reasons to have hypoglycemia including - at the time active infection, fluoroquinolone use, not eating -and chronically poor meal structure She had multiple contributing factors towards syncope including low blood glucose, issues being vasovagal with phlebotomy in the past, use of prazosin (an alpha karolyn) and perhaps substance abuse given tox from 09/23/23. I encouraged her to follow up with our lead etl developer to talk about better eating habits She can have fasting labs drawn Will have her back in 3 months to see how she is doing (2) Vertigo: Code(s): R42 - Dizziness and giddiness Category: Medical Plan: Patient referred to vestibular therapy. She is to call [facility] (her request) to see if they offer this. If not she will let us know and she will be referred to [facility]. darrell Diaz PT (3) H/O prolonged Q-T interval on ECG: Code(s): Z87.898 - Personal history of other specified conditions Category: Medical Plan: Careful prescription of medications given history Orders: Orders AMB Hemoglobin A1c Today E16.2 - Hypoglycemia, unspecified, Z13.9 - Encounter for screening, unspecified Cortisol Random Today E16.2 - Hypoglycemia, unspecified TSH reflex Free T4 Today E16.2 - Hypoglycemia, unspecified IGF Binding Protein 2 Today E16.2 - Hypoglycemia, unspecified PT Evaluation and Treatment Today R42 - Dizziness and giddiness Basic Metabolic Panel Today E16.2 - Hypoglycemia, unspecified Coding Level of Care Code New Pt Level 4 (21250) Complex EM visit Add On G2211 Diagnoses Hypoglycemia E16.2 Vertigo R42 H/O prolonged Q-T interval on ECG Z87.898
[2023-10-14 08:16] LABS: Glucose, Whole Blood 94 mg/dL (60-115)
== END 2023-10-14 09:58 | disposition home or self-care (01) ==
PROVIDERS: PCP Internal Medicine; Visit Provider Internal Medicine
DX: E16.2 Hypoglycemia, unspecified (principal); R42 Dizziness and giddiness; Z87.898 Personal history of other specified conditions; Z13.9 Encounter for screening, unspecified
CPT/HCPCS: 99204; G2211

== ENCOUNTER → 2023-10-14 07:53 | Outpatient (BNVA) | payer OTHER, SELFPAY | PROVIDERS: PCP Internal Medicine; Visit Provider Internal Medicine | DX: E16.2 Hypoglycemia, unspecified (principal); R42 Dizziness and giddiness; Z87.898 Personal history of other specified conditions | CPT/HCPCS: 82947; 83036; 99202 ==

== ENCOUNTER 2023-10-22 07:25 | Outpatient (REF) | payer OTHER, SELFPAY ==
--- NOTE | ~2023-10-22 | MM_ITS ---
EXAMINATION: MM SCREENING DIGITAL BREAST TOMOSYNTHESIS, BILATERAL CLINICAL INFORMATION: Screening. Asymptomatic. COMPARISON: Mammography: This study is compared with prior exams dating back to 2017. TECHNIQUE: Digital breast tomosynthesis is performed in both the craniocaudal and mediolateral oblique views along with computer-aided detection (CAD). Direct 2-D images of each breast in the standard screening projections are also obtained. FINDINGS: The breasts are almost entirely fatty (ACR BI-RADS breast composition Category a). There are no significant masses, abnormal calcifications, or other abnormalities. MM/MM tomosynthesis screening BI IMPRESSION: No mammographic evidence of malignancy. ASSESSMENT: BI-RADS BI-RADS 1 - Negative RECOMMENDATION: Routine annual mammography screening. 1 year F/U This examination should not preclude the clinical evaluation of a suspicious palpable abnormality. This patient's information was entered into a reminder system with a target due date for their next mammogram. Electronically signed by: Janay Ordoñez MD 11/18/2023 12:10 PM EDT
== END 2023-10-22 07:26 | disposition home or self-care (01) ==
LOC: HO.MAMMO 07:25
PROVIDERS: PCP Internal Medicine; Visit Provider Internal Medicine
DX: Z12.31 Encounter for screening mammogram for malignant neoplasm of breast (principal)
CPT/HCPCS: 77063; 77067

== ENCOUNTER → 2023-10-22 08:30 | Outpatient (BNV) | payer OTHER, SELFPAY | PROVIDERS: PCP Internal Medicine; Visit Provider Radiology Diagnostic Radiology | DX: Z12.31 Encounter for screening mammogram for malignant neoplasm of breast (principal) | CPT/HCPCS: 77063; 77067 ==

== ENCOUNTER 2023-10-29 07:15 | Outpatient (REF) | payer OTHER, SELFPAY ==
--- NOTE | ~2023-10-29 | MR_ITS ---
EXAMINATION: MR ABDOMEN WITHOUT CONTRAST, MRCP CLINICAL INFORMATION: Follow-up pancreatic cyst. COMPARISON: CT abdomen/pelvis 09/27/2023. TECHNIQUE: MR abdomen is performed without gadolinium contrast. 3D MRCP images were processed on an independent workstation under concurrent supervision. FINDINGS: Limited evaluation secondary to motion. LUNG BASES: The visualized lung bases are unremarkable. LIVER, GALLBLADDER, AND BILIARY TREE: The liver is normal in size, smooth in contour, and normal in signal. No focal hepatic lesion. The gallbladder is unremarkable with no evidence of gallbladder wall thickening, or obvious pericholecystic inflammatory changes. No biliary ductal dilatation. The CBD measures up to 0.6 cm in diameter. PANCREAS: A 1.2 x 0.8 cm T2 hyperintense cystic-appearing observation in the superior aspect of the pancreatic body is unchanged compared to 09/27/2023, although new compared to a CT from 04/17/2019. A clear connection with the main duct is not established in this examination, though evaluation is limited by motion, specifically significantly degrading the 3-D MRCP images. No evidence of main pancreatic ductal dilatation. No peripancreatic inflammatory changes. SPLEEN: Unremarkable. ADRENAL GLANDS: Unremarkable. KIDNEYS AND URETERS: The kidneys are normal in size and shape. There are 2 well-defined T2 hyperintense simple-appearing cortical cysts in the left kidney, largest in the upper pole measuring 1 cm. No hydronephrosis. No perinephric stranding. GASTROINTESTINAL TRACT: No bowel obstruction. No ascites or fluid collection. ABDOMINAL WALL: No significant hernia is appreciated. LYMPH NODES: No lymphadenopathy. VASCULAR: Limited examination in the absence of IV contrast. The abdominal aorta is normal in caliber. OSSEOUS STRUCTURES: No acute or aggressive-appearing osseous findings. MR/MR MRCP IMPRESSION: Examination is limited secondary to motion. Redemonstration of a 1.2 cm T2 hyperintense cystic-appearing observation in the superior aspect of the pancreatic body, unchanged compared to most recent prior but new since 2019. A clear connection with the main duct cannot be established in this examination but there is no evidence of biliary ductal dilatation. Some of the differential considerations include sequela of chronic pancreatitis, sidebranch IPMN and cystoadenoma and other cystic neoplasms, although evaluation is incomplete as characterization of associated solid tissue/enhancing components is limited in the absence of intravenous contrast. Recommend follow-up with abdominal MRI with and without IV contrast, pancreatic protocol/MRCP in 3-6 months. No biliary ductal dilatation.
== END 2023-10-29 07:16 | disposition home or self-care (01) ==
LOC: HO.MRI 07:15
PROVIDERS: PCP Internal Medicine; Visit Provider Internal Medicine
DX: K86.2 Cyst of pancreas (principal)
CPT/HCPCS: 74181

== ENCOUNTER 2023-11-12 09:37 | Outpatient (AMB) | payer OTHER, SELFPAY ==
[2023-11-12 10:33] VITALS: BMI 32.1
--- NOTE | 2023-11-12 10:33 | A.OFFVIS_ITS ---
Vital Signs 11/12/23 10:33 Height 5 ft 5 in Weight 193 lb BMI 32.1 Intake Visit Reasons: New prob- B/L knee pain L>R Intake Note: Cathy is a 53 year old female who presents today for a new problem visit with complaints of bilateral knee pain, left worse than right. Patient states she has been experiencing unsteady gate and would like get a foldable walking seat. She would like to discuss other treatment options. Allergies fentanyl [FENTANYL] Allergy (Intermediate, Verified 11/12/23 10:36) VOMITING Penicillins [PENICILLINS] Allergy (Intermediate, Verified 11/12/23 10:36) ANAPHYLAXIS sertraline [From ZOLOFT] Allergy (Intermediate, Verified 11/12/23 10:36) ANXIETY zolpidem [From AMBIEN] Allergy (Intermediate, Verified 11/12/23 10:36) suicidal attempt with zolpidem HPI HPI New prob- B/L knee pain L>R: Details: Cathy is a 53 year old female who presents today for a new problem visit with complaints of bilateral knee pain, left worse than right. Patient states she has been experiencing unsteady gate and would like get a foldable walking seat. She would like to discuss other treatment options. Her primary problem is left foot pain. She has painful calluses/corns under her great toe. She is status post surgical correction for hallux valgus/possible hallux rigidus on the left. This current pain causes her to walk with extreme an abnormality on the lateral aspect of her left foot. He does describe ipsilateral groin and knee pain. She finds it difficult to walk comfortably on bed like an assistive device. [facility] Medical History MDD (major depressive disorder), recurrent episode, moderate Physical exam Frequent falls Shoulder pain, bilateral Lumbar pain Chest pain Screening for cervical cancer Osteoarthritis of right knee Left foot pain Urinary incontinence Right foot pain Skin lesion Right knee pain Mid back pain on right side Right sided abdominal pain Cervical radiculopathy Osteoarthritis of acromioclavicular joint Rotator cuff tendonitis Chronic right shoulder pain Right shoulder pain Right hip pain Cervical strain Left foot pain Right foot pain Polyarthralgia Carpal tunnel syndrome Bipolar disorder Depression Anxiety Hypovitaminosis D Constipation by delayed colonic transit Surgical History History of surgery History of right hip replacement History of hemorrhoidectomy History of bunionectomy History of cholecystectomy History of appendectomy Family History Father Depression Prostate cancer Chronic mental illness Mother Diabetes Cancer Breast cancer Maternal Aunt Breast cancer Family/Other Chronic mental illness Other Mental health disorder Social History Household Members: Other Household Members Other:: My dog Housing: House Alcohol intake: never Patient Tobacco Use Status: Never used Tobacco e-Cigarette/Vaping Use: Never Used Second Hand Smoke Exposure: No Substance Use Type: Marijuana service: No Current occupational status: disabled 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 She walks on the left lateral column of her left foot. Her left hip has some mild groin pain with impingement testing and there is a mild effusion in her left knee with mild medial and lateral compartment tenderness and negative Clover's. Assessment & Plan Assessment & Plan (1) Osteoarthritis of left hip: Code(s): M16.12 - Unilateral primary osteoarthritis, left hip Category: Medical Plan: Stable but difficult to assess given her poor walking mechanics. This has to do with her foot however. (2) Primary osteoarthritis of right knee: Code(s): M17.11 - Unilateral primary osteoarthritis, right knee Category: Medical Plan: Patellofemoral arthritis bilateral knees. Again her poor walking mechanics really make it difficult to assess her function at this point she needs to have her foot addressed. (3) Iliotibial band syndrome, left leg: Code(s): M76.32 - Iliotibial band syndrome, left leg Category: Medical Plan: Again this is a consequence of poor gait mechanics. I recommend referral to a foot and ankle surgeon to evaluate her foot. (4) Arthritis of first metatarsophalangeal (MTP) joint of left foot: Code(s): M19.072 - Primary osteoarthritis, left ankle and foot Category: Medical Plan: I will refer her to a foot and ankle surgeon for evaluation. Medications: New [folding cane with seat] As directed 1 ea 0RF M19.072 - Primary osteoarthritis, left ankle and foot Coding Level of Care Code Est Pt Level 4 (18890) Diagnoses Osteoarthritis of left hip M16.12 Primary osteoarthritis of right knee M17.11 Iliotibial band syndrome, left leg M76.32 Arthritis of first metatarsophalangeal (MTP) joint of left foot M19.072
== END 2023-11-12 12:36 | disposition home or self-care (01) ==
PROVIDERS: PCP Internal Medicine; Visit Provider Orthopaedic Surgery
DX: M16.12 Unilateral primary osteoarthritis, left hip (principal); M17.11 Unilateral primary osteoarthritis, right knee; M76.32 Iliotibial band syndrome, left leg; M19.072 Primary osteoarthritis, left ankle and foot
CPT/HCPCS: 99213

== ENCOUNTER → 2023-11-12 09:37 | Outpatient (BNVA) | payer OTHER, SELFPAY | PROVIDERS: PCP Internal Medicine; Visit Provider Orthopaedic Surgery | DX: M16.12 Unilateral primary osteoarthritis, left hip (principal); M17.11 Unilateral primary osteoarthritis, right knee; M19.072 Primary osteoarthritis, left ankle and foot; M76.32 Iliotibial band syndrome, left leg; M25.562 Pain in left knee | CPT/HCPCS: 99212 ==

== ENCOUNTER 2023-12-01 10:12 | Outpatient (AMB) | payer OTHER, SELFPAY ==
--- NOTE | 2023-12-01 10:44 | MHC.OFFVIS ---
Vital Signs 12/01/23 10:47 Height 5 ft 5 in Weight 194 lb 0.108 oz BMI 32.3 BP 116/55 L Blood Pressure Location Lt brachial Position Sitting Pulse 71 Intake Visit Reasons: ABD Pains, Pancreatic Cyst Intake Note: Cathy presents in the office as a new patient for ABD pains and Pancreatic Cyst. CC: She states that the pains are deep in the right side of her abdomen. She states that she has both constipation and diarrhea but at the moment Activia yogurt seems to be helping for her. 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 Pain is described as cramping and dull which is there almost all the time. Radiates to her R flank. Assoc with no nausea, vomiting. BMs fluctuate from constipation to diarrhea. Occ bloating. Does not drink. Occasionally takes NSAIDs. Was seen in ER in September for syncopal episode and was noted to have incidental 0.8 to 1 cm cyst in pancreas body. Follow up MRCP shows 1.2 cm hyperintense cyst without clear communication with PD. No biliary duct dilation. Recommendation was made to repeat MRI with and without contrast in 3-6 months. No high risk findings such as dilated PD, nodular component etc. DOes not report prev hx of drinking, or pancreatitis. No fam hx of panc ca. PFSH Medical History MDD (major depressive disorder), recurrent episode, moderate Physical exam Frequent falls Shoulder pain, bilateral Lumbar pain Chest pain Screening for cervical cancer Osteoarthritis of right knee Left foot pain Urinary incontinence Right foot pain Skin lesion Right knee pain Mid back pain on right side Right sided abdominal pain Cervical radiculopathy Osteoarthritis of acromioclavicular joint Rotator cuff tendonitis Chronic right shoulder pain Right shoulder pain Right hip pain Cervical strain Left foot pain Right foot pain Polyarthralgia Carpal tunnel syndrome Bipolar disorder Depression Anxiety Hypovitaminosis D Constipation by delayed colonic transit Surgical History Hx of colonoscopy History of surgery History of right hip replacement History of hemorrhoidectomy History of bunionectomy History of cholecystectomy History of appendectomy Family History Father Depression Prostate cancer Chronic mental illness Mother Diabetes Cancer Breast cancer Maternal Aunt Breast cancer Family/Other Chronic mental illness Other Mental health disorder Social History Household Members: Other Household Members Other:: My dog Housing: House Alcohol intake: never Patient Tobacco Use Status: Never used Tobacco e-Cigarette/Vaping Use: Never Used Second Hand Smoke Exposure: No Substance Use Type: Marijuana Advance Directives: No Advance Directives Information Provided: Yes Do you have a plan to hurt others: No Plan service: No Current occupational status: disabled 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 A clear connection with the main duct cannot be established in this examination but there is no evidence of biliary ductal dilatation. Some of the differential considerations include sequela of chronic pancreatitis, sidebranch IPMN and cystoadenoma and other cystic neoplasms, although evaluation is incomplete as characterization of associated solid tissue/enhancing components is limited in the absence of intravenous contrast. Recommend follow-up with abdominal MRI with and without IV contrast, pancreatic protocol/MRCP in 3-6 months. Assessment & Plan Assessment & Plan (1) Pancreatic cyst: Code(s): K86.2 - Cyst of pancreas Category: Medical (2) Abdominal pain: Code(s): R10.9 - Unspecified abdominal pain Category: Medical (3) Change in bowel habit: Code(s): R19.4 - Change in bowel habit Category: Medical Plan Ddx includes IBD, diverticulosis, IBS. Work up as below. MRI ordered to follow up on 1.2cm panc cyst Plan: - Labs as below - colo to be booked - MRI pancreas protocol to be booked Follow up after procedure Orders: Orders Calprotectin, Fecal 12/01/23 R10.9 - Unspecified abdominal pain Comprehensive Met. Panel 12/01/23 R10.9 - Unspecified abdominal pain Complete Blood Count no Diff 12/01/23 R10.9 - Unspecified abdominal pain Transglutaminase IgA 12/01/23 R10.9 - Unspecified abdominal pain Immunoglobulin A 12/01/23 R10.9 - Unspecified abdominal pain Medications: New peg 3350-electrolytes 236-22.74-6.74 -5.86 gram (Golytely) as per split prep instructions, until fecal effluent is clear 240 mL PO Q10M 4,000 mL 0RF colonoscopy Coding Level of Care Code New Pt Level 4 (72915) Diagnoses Pancreatic cyst K86.2 Abdominal pain R10.9 Change in bowel habit R19.4
[2023-12-01 10:47] VITALS: BP 116/55; PULSE 71; BMI 32.3
== END 2023-12-01 15:32 | disposition home or self-care (01) ==
PROVIDERS: PCP Internal Medicine; Visit Provider Internal Medicine
DX: K86.2 Cyst of pancreas (principal); R10.9 Unspecified abdominal pain; R19.4 Change in bowel habit
CPT/HCPCS: 99204

== ENCOUNTER → 2023-12-01 10:12 | Outpatient (BNVA) | payer OTHER, SELFPAY | PROVIDERS: PCP Internal Medicine; Visit Provider Internal Medicine | DX: R10.9 Unspecified abdominal pain (principal); K86.2 Cyst of pancreas; R19.4 Change in bowel habit | CPT/HCPCS: 99202 ==

== ENCOUNTER 2023-12-11 11:47 | Emergency (ER) | payer OTHER, SELFPAY ==
--- NOTE | ~2023-12-11 | XR_ITS ---
EXAMINATION: XR FEMUR, LEFT CLINICAL INFORMATION: Fall, tenderness. COMPARISON: Radiograph left hip 05/08/2023. TECHNIQUE: AP and lateral views of the left femur were obtained. FINDINGS: No acute fracture or dislocation. Mild to moderate degenerative osteoarthritis of the left hip. No joint effusion. No significant soft tissue abnormality. XR/XR femur LT 2V IMPRESSION: No acute fracture or dislocation. Mild to moderate degenerative osteoarthritis of the left hip. Electronically signed by: Lora Mckenna MD 12/11/2023 01:44 PM EDT
--- NOTE | ~2023-12-11 | XR_ITS ---
EXAMINATION: Left knee series. Left femur series. Left hip series. Pelvis series CLINICAL INFORMATION: Pain. Tenderness COMPARISON: CT scan of the abdomen and pelvis September 2023 TECHNIQUE: 4 views of left knee. 2 views of the left femur. 2 views of the left hip. Single view of the pelvis. FINDINGS: Left hip: Mild osteoarthritis manifested by marginal osteophytes and mild joint space narrowing. No change. Pelvis: Left hip as above. Right total hip arthroplasty partially included in the [id number] unremarkable. Postsurgical changes at the lumbosacral junction unchanged with spondylosis/degenerative disc changes at L4-L5. Remaining bony joints in the pelvis normal. Left femur: Unremarkable. Left knee: Unremarkable. XR/XR hip LT w PEL1V IMPRESSION: 1. Mild osteoarthritis of the left hip unchanged. 2. No acute abnormality of the pelvis, left femur, or left knee. Electronically signed by: Fede Perez MD 12/11/2023 02:10 PM EDT
--- NOTE | ~2023-12-11 | CT_ITS ---
EXAMINATION: CT HEAD WITHOUT CONTRAST CLINICAL INFORMATION: Fall with head strike and fusion COMPARISON: None available. TECHNIQUE: Contiguous axial imaging was performed from the skull base to vertex without intravenous administration of contrast. This CT examination was performed using dose optimization techniques as appropriate, variously including the following: *Automated exposure control *Adjustment of mA and/or kV according to patient size (this includes techniques or standardized protocols for targeted exams where dose is matched to indication/reason for exam; i.e. extremities or head) *Use of iterative reconstruction technique DLP: 708 mGy-cm FINDINGS: There is no mass hemorrhage or cerebral edema. No extra-axial fluid collection. Ventricles and basilar cisterns normal. Soft tissues/scalp: Normal. Osseous structures/calvarium: Normal. Sinuses: Normal. Mastoid air cells: Normal. CT/CT head/brain wo IV con IMPRESSION: No acute intracranial pathology. Electronically signed by: Fede Perez MD 12/11/2023 12:49 PM EDT
--- NOTE | ~2023-12-11 | XR_ITS ---
EXAMINATION: Left knee series. Left femur series. Left hip series. Pelvis series CLINICAL INFORMATION: Pain. Tenderness COMPARISON: CT scan of the abdomen and pelvis September 2023 TECHNIQUE: 4 views of left knee. 2 views of the left femur. 2 views of the left hip. Single view of the pelvis. FINDINGS: Left hip: Mild osteoarthritis manifested by marginal osteophytes and mild joint space narrowing. No change. Pelvis: Left hip as above. Right total hip arthroplasty partially included in the [id number] unremarkable. Postsurgical changes at the lumbosacral junction unchanged with spondylosis/degenerative disc changes at L4-L5. Remaining bony joints in the pelvis normal. Left femur: Unremarkable. Left knee: Unremarkable. XR/XR knee LT 3V IMPRESSION: 1. Mild osteoarthritis of the left hip unchanged. 2. No acute abnormality of the pelvis, left femur, or left knee. Electronically signed by: Fede Perez MD 12/11/2023 02:10 PM EDT
--- NOTE | ~2023-12-11 | CT_ITS ---
EXAMINATION: CT CERVICAL SPINE WITHOUT CONTRAST CLINICAL INFORMATION: Fall COMPARISON: CT cervical spine April 2023 TECHNIQUE: CT scan of the cervical spine was performed with reconstruction imaging performed at the acquisition workstation. This CT examination was performed using dose optimization techniques as appropriate, variously including the following: *Automated exposure control *Adjustment of mA and/or kV according to patient size (this includes techniques or standardized protocols for targeted exams where dose is matched to indication/reason for exam; i.e. extremities or head) *Use of iterative reconstruction technique DLP: 608 mGy-cm FINDINGS: Stable reversal of the usual cervical lordosis. Multilevel degenerative disc changes manifested by endplate osteophytes without disc space narrowing extending from C3-C4 through C6-C7. Facets unremarkable. No fracture facets unremarkable. Surrounding soft tissues normal. CT/CT cervical spine wo IV con IMPRESSION: 1. No acute abnormality. 2. Stable spondylosis of the cervical spine. Fleischner guidelines were followed. Electronically signed by: Fede Perez MD 12/11/2023 12:46 PM EDT
--- NOTE | ~2023-12-11 | XR_ITS ---
EXAMINATION: XR SHOULDER, LEFT CLINICAL INFORMATION: Painful proximal humerus COMPARISON: None available. TECHNIQUE: AP external rotation, Grashey, scapular Y, and axillary views of the left shoulder. FINDINGS: The bones and soft tissues are normal. No fracture. Glenohumeral and acromioclavicular alignment is anatomic with normal joint space. No abnormal soft tissue calcifications. XR/XR shoulder LT min 2V IMPRESSION: Normal left shoulder. Electronically signed by: Fede Perez MD 12/11/2023 02:44 PM EDT RP
[2023-12-11 11:54] VITALS: BP 110/72; PULSE 58; O2SAT 98
--- NOTE | 2023-12-11 11:54 | ED_ITS ---
HPI - General Adult General Chief complaint: Fall Stated complaint: FALL, CCOLLAR Time Seen by Provider: 12/11/23 11:54 Source: patient and EMS Mode of arrival: EMS Limitations: altered mental status History of Present Illness ED Provider: rock HPI narrative: Patient is a 53-year-old female with history of frequent falls, MDD, anxiety, Bipolar disorder, polyarthralgias, PTSD, cannabis use, fibromyalgia presenting to the emergency department via ambulance after a fall down 2 steps at home. Patient is unsure if there was loss of consciousness or head strike. She is not anticoagulated. She complains of lower back pain, left hip pain on arrival to ED. EMS reports some confusion en route to the ED as well as a ten second episodes of patient's eyes rolling back in her head without postictal symptoms. MD complaint: back and left hip pain Onset (ago): minute(s) Associated symptoms: confusion Treatments prior to arrival: other (c-collar applied by EMS) Related Data Home Medications ?Medication ?Instructions ?Recorded ?Confirmed ibuprofen 800 mg tablet 800 mg PO TID 11/12/23 quetiapine 100 mg tablet mg PO 11/12/23 Previous Rx's ?Medication ?Instructions ?Recorded duloxetine 30 mg capsule,delayed 30 mg PO DAILY 15 days #15 caps 07/06/23 release duloxetine 60 mg capsule,delayed 60 mg PO QAM 15 days #15 caps 07/06/23 release oxcarbazepine 150 mg tablet 150 mg PO BID 15 days #30 tabs 07/06/23 oxcarbazepine 600 mg tablet 600 mg PO BID 15 days #30 tabs 07/06/23 prazosin 1 mg capsule 1 mg PO BEDTIME 15 days #15 caps 07/06/23 quetiapine 400 mg tablet 400 mg PO BEDTIME 15 days #15 tabs 07/06/23 benztropine 1 mg tablet 1 mg PO .QHS #30 tabs 07/15/23 clonazepam 1 mg tablet 1 mg PO BID PRN Anxiety 15 days 07/15/23 #30 tabs ergocalciferol (vitamin D2) 1,250 1,250 mcg PO QWEEK #12 caps 07/15/23 mcg (50,000 unit) capsule (Vitamin D2) quetiapine 50 mg tablet 50 mg PO BID PRN severe anxiety or 07/15/23 agitation 15 days #30 tabs lorazepam 0.5 mg tablet (Ativan) 1 mg (2 x 0.5 mg) PO DAILY PRN 09/27/23 anxiety 1 day #2 tabs folding cane with seat #1 ea 11/12/23 peg 3350-electrolytes 236 240 ml PO Q10M colonoscopy #4,000 12/01/23 gram-22.74 gram-6.74 gram-5.86 mL gram solution (Golytely) Allergies Allergy/AdvReac Type Severity Reaction Status Date / Time fentanyl [FENTANYL] Allergy Intermediate VOMITING Verified 12/11/23 11:59 Penicillins [PENICILLINS] Allergy Intermediate ANAPHYLAXIS Verified 12/11/23 11:59 sertraline [From ZOLOFT] Allergy Intermediate ANXIETY Verified 12/11/23 11:59 zolpidem [From AMBIEN] Allergy Intermediate suicidal Verified 12/11/23 11:59 attempt with zolpidem Review of Systems Review of Systems: As per HPI. Yes all other systems are reviewed and are negative Constitutional: Constitutional: Reports as per HPI Neurologic: Denies Abnormal speech present REPLACED BY [facility] Past Medical History Medical History MDD (major depressive disorder), recurrent episode, moderate Physical exam Frequent falls Shoulder pain, bilateral Lumbar pain Chest pain Screening for cervical cancer Osteoarthritis of right knee Left foot pain Urinary incontinence Right foot pain Skin lesion Right knee pain Mid back pain on right side Right sided abdominal pain Cervical radiculopathy Osteoarthritis of acromioclavicular joint Rotator cuff tendonitis Chronic right shoulder pain Right shoulder pain Right hip pain Cervical strain Left foot pain Right foot pain Polyarthralgia Carpal tunnel syndrome Bipolar disorder Depression Anxiety Hypovitaminosis D Constipation by delayed colonic transit Surgical History Hx of colonoscopy History of surgery History of right hip replacement History of hemorrhoidectomy History of bunionectomy History of cholecystectomy History of appendectomy Family History Family History Father Depression Prostate cancer Chronic mental illness Mother Diabetes Cancer Breast cancer Maternal Aunt Breast cancer Family/Other Chronic mental illness Other Mental health disorder Social History Social History Household Members: Other Household Members Other:: My dog Housing: House Alcohol intake: never Patient Tobacco Use Status: Never used Tobacco e-Cigarette/Vaping Use: Never Used Second Hand Smoke Exposure: No Substance Use Type: Marijuana Advance Directives: No Advance Directives Information Provided: No service: No Current occupational status: disabled 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 Blood pressure normal. Heart rate normal. Respiratory rate normal. Temperature normal. Oxygen saturation normal. Const General: cooperative, healthy appearing and no acute distress Orientation/consciousness: oriented to person, oriented to place and No oriented to time (states year is 1967) HENMT Head: Yes normal to inspection, Yes normocephalic, Yes atraumatic, No Knox's sign and No raccoon eyes Ears: external ears normal and TM's normal bilaterally (no hemotympanum bilat) General nose exam: Normal external nose present and Normal septum present Face and sinus: Yes face symmetric Mouth: Normal oral and palatal mucosa present, oropharynx normal and moist mucous membranes Throat: Yes uvula midline Eyes Pupils: Equal, round and reactive pupils present EOM: EOMs intact bilaterally Neck Neck: Yes normal visual inspection and Yes supple Chest Chest palpation & inspection: normal inspection of the chest and normal palpati on of entire chest wall Resp Effort & Inspection: normal respiratory effort and able to speak in complete sentences Auscultation: clear to auscultation bilaterally Cardio Rate: regular rate Rhythm: regular rhythm Heart sounds: S1 normal heart sound present and S2 normal heart sound present GI Inspection: Yes normal to inspection and No abdominal wall ecchymosis Palpation (GI): Soft to palpation and nontender Auscultation: normoactive bowel sounds General: Yes no CVA tenderness Back/Spine/Pelvis Back: no CVA tenderness Thoracic/Lumbar Spine: thoracic and lumbar spine normal to inspection, pain with thoraco-lumbar ROM, paraspinal muscle tenderness on the left in the upper thoracic and in the mid lumbar, No thoracic spinal tenderness and lumbar spinal tenderness Pelvis: pain with anterior-posterior compression and pain with lateral compression Skin General skin exam: elasticity normal and turgor normal Neuro General: oriented to person, oriented to place, No oriented to time (states year is 1967), tone normal, moves all extremities, Normal light touch and pain sensation, no focal motor deficits and CN's II-XI intact bilaterally Cranial nerves: Yes Equal, round and reactive pupils present Speech: No Abnormal speech present Motor exam (neuro): 5/5 motor strength present throughout and Normal motor muscle tone present throughout Sensory Exam: Normal double simultaneous stimulation for sensation Extrem General: Yes full ROM, Yes no pedal edema and Yes no calf tenderness Medications Administered Discontinued Medications Generic Name Dose Route Start Last Admin Trade Name Freq PRN Reason Stop Dose Admin Acetaminophen 975 mg 12/11/23 15:23 12/11/23 15:40 Acetaminophen 325 Mg Tablet PO 12/11/23 15:24 975 mg ONCE ONE Administration Ibuprofen 600 mg 12/11/23 15:23 12/11/23 15:40 Ibuprofen 600 Mg Tablet PO 12/11/23 15:24 600 mg ONCE ONE Administration Medical Decision Making Medical Decision Making [facility] Narrative: Patient is a 53-year-old female with history of frequent falls, MDD, anxiety, Bipolar disorder, polyarthralgias, PTSD, cannabis use, fibromyalgia presenting to the emergency department via ambulance after a fall down 2 steps at home. Patient is unsure if there was loss of consciousness or head strike. On exam patient is awake, A+Ox3, VS WNL, afebrile, physical exam findings as above. Given reported symptoms and physical exam findings, initial differential includes concussion, ICH, skull or cervical vertebral fracture, shoulder contusion, strain, fracture, lumbar strain, contusion, fracture, left hip contusion vs fracture, left knee strain, contusion, fracture. Labs notable for negative ethanol. X-rays left shoulder, hip/pelvis, femur, and knee notable for no acute fractures. CT notable for no evidence of ICH, skull or cervical vertebral fracture or subluxation. My interpretation is in agreement with the radiologist's interpretation. Patient updated on results and all questions answered. Return precautions discussed. Follow up with PCP. Patient verbalized understanding of and agreement with plan. Differential Diagnosis Differential Diagnoses: The differential diagnosis associated with the presentation includes as per [facility] Admission/Observation Consideration of admission/observation: Escalation of care including admission/observation considered Patient would have been admitted to the hospital had their work up had any findings where hospital admission was appropriate and their clinical presentation warranted hospital admission. Lab Data [facility] Lab Attestation statement: I reviewed the patient's lab results. as per [facility] Labs: Lab Results 12/11/23 Range/Units 12:30 Ethyl Alcohol < 10 mg/dL Independent Interpretation I performed an independent interpretation of an: Plain X-Ray and CT Scan Interpretation: X-rays left shoulder, hip/pelvis, femur, and knee notable for no acute fractures. CT notable for no evidence of ICH, skull or cervical vertebral fracture or subluxation. Radiology Impression Discussion of test interpretation with radiology: I have reviewed the radiologist's reading. Radiologist Impression: XR/XR femur LT 2V IMPRESSION: No acute fracture or dislocation. Mild to moderate degenerative osteoarthritis of the left hip. CT/CT cervical spine wo IV con IMPRESSION: 1. No acute abnormality. 2. Stable spondylosis of the cervical spine. XR/XR shoulder LT min 2V IMPRESSION: Normal left shoulder. XR/XR knee LT 3V IMPRESSION: 1. Mild osteoarthritis of the left hip unchanged. 2. No acute abnormality of the pelvis, left femur, or left knee. XR/XR hip LT w PEL1V IMPRESSION: 1. Mild osteoarthritis of the left hip unchanged. 2. No acute abnormality of the pelvis, left femur, or left knee. CT/CT head/brain wo IV con IMPRESSION: No acute intracranial pathology. External Record Review External record reviewed: Inpatient record, Office record and Outpatient record Discharge Plan Discharge Clinical Impression: Contusion of left shoulder, Contusion of hip, left, Fall Patient Disposition: Home, Self-Care Instructions: Contusion in Adults (ED), Hip Contusion (ED), Fall Prevention (ED) Additional Instructions: You have been evaluated in the emergency department today for injuries after a fall. Your CT scans did not show signs of bleeding or fractures in your head or cervical spine. Your x-rays were also without evidence of fractures. We recommend you take 600 mg ibuprofen every 6 hours or Tylenol 650 mg every 6 hours as needed for pain. If needed, you can alternate these medications so that you take 1 medication every 3 hours. For instance, at noon take ibuprofen, then at 3:00 p.m. take Tylenol, then at 6:00 p.m. take ibuprofen. Please schedule an appointment with for follow-up with your primary care provider as soon as possible. Return to the emergency department if you experience worsening or uncontrolled pain, vision changes, recurrent vomiting, difficulty with normal activities, abnormal behavior, difficulty walking, numbness, weakness, or any other concerning symptoms. Prescriptions: No Action oxcarbazepine 150 mg tablet 150 mg PO BID 15 Days Qty: 30 1RF prazosin 1 mg capsule 1 mg PO BEDTIME 15 Days Qty: 15 1RF oxcarbazepine 600 mg tablet 600 mg PO BID 15 Days Qty: 30 1RF duloxetine 60 mg capsule,delayed release(DR/EC) 60 mg PO QAM 15 Days Qty: 15 1RF quetiapine 400 mg tablet 400 mg PO BEDTIME 15 Days Qty: 15 0RF duloxetine 30 mg capsule,delayed release(DR/EC) 30 mg PO DAILY 15 Days Qty: 15 1RF clonazepam 1 mg tablet 1 mg PO BID PRN (Reason: Anxiety) 15 Days Qty: 30 0RF benztropine 1 mg tablet 1 mg PO .QHS Qty: 30 0RF quetiapine 50 mg tablet 50 mg PO BID PRN (Reason: severe anxiety or agitation) 15 Days Qty: 30 1RF ergocalciferol (vitamin D2) [Vitamin D2] 1,250 mcg (50,000 unit) capsule 1,250 mcg PO QWEEK Qty: 12 0RF lorazepam [Ativan] 0.5 mg tablet 1 mg PO DAILY PRN (Reason: anxiety) 1 Days Qty: 2 0RF Rx Instructions: Take 45 minutes before MRI. ibuprofen 800 mg tablet 800 mg PO TID quetiapine 100 mg tablet PO (DME) folding cane with seat See Rx Instructions .Route .MEDSUPPLY Qty: 1 0RF Rx Instructions: As directed peg 3350-electrolytes [Golytely] 236-22.74-6.74 -5.86 gram recon soln 240 ml PO Q10M Qty: 4000 0RF Rx Instructions: as per split prep instructions, until fecal effluent is clear Print Language: Bengali
[2023-12-11 11:56] VITALS: BP 105/59; PULSE 70; RESP 14; TEMP 36.9; O2SAT 95; BMI 32.4
[2023-12-11 12:48] LABS: Ethanol < 10 mg/dL
[2023-12-11] MEDS: Acetaminophen 325 MG TABLET 975 MG PO (15:40)
[2023-12-11] MEDS: Ibuprofen 600 MG TABLET PO (15:40)
[2023-12-11 16:10] VITALS: BP 105/59; PULSE 70; RESP 14; TEMP 36.9; O2SAT 95
== END 2023-12-11 16:12 | disposition home or self-care (01) ==
PROVIDERS: Registered Nurse Emergency; Emergency Provider Emergency Medicine Emergency Medical Services; PCP Internal Medicine
DX: S40.012A Contusion of left shoulder, initial encounter (principal); S70.02XA Contusion of left hip, initial encounter; W10.9XXA Fall (on) (from) unspecified stairs and steps, initial encounter; Y93.9 Activity, unspecified; Y92.9 Unspecified place or not applicable; Y99.9 Unspecified external cause status; Z79.899 Other long term (current) drug therapy
CPT/HCPCS: 36415; 70450; 72125; 73030; 73502; 73552; 73562; 80307; 99283; 99284

== ENCOUNTER → 2023-12-20 10:03 | Outpatient (BNV) | payer OTHER, SELFPAY | PROVIDERS: PCP Internal Medicine; Visit Provider Radiology Diagnostic Radiology | DX: K86.2 Cyst of pancreas (principal) | CPT/HCPCS: 74183 ==

== ENCOUNTER 2023-12-20 10:16 | Outpatient (REF) | payer OTHER, SELFPAY ==
--- NOTE | ~2023-12-20 | MR_ITS ---
EXAMINATION: MR ABDOMEN WITHOUT AND WITH CONTRAST CLINICAL INFORMATION: 1 cm Cyst of the pancreas versus recent CT abdomen dated September 27, 2023. Status post cholecystectomy, 25 years ago. COMPARISON: Correlated to MRCP dated October 29, [address] abdomen and pelvis dated September 27, 2023. TECHNIQUE: MR abdomen was performed without and with use of 9.0 mL intravenous Gadavist gadolinium contrast. Postcontrast images are performed in multiphase dynamic sequences. Imaging was performed in 3 planes. No reported immediate complications. FINDINGS: Submitted for interpretation on February 17, 2024. LIVER, GALLBLADDER, AND BILIARY TREE: Liver measures 15 cm. No focal lesion. Main portal vein, hepatic veins and intrahepatic portion of the IVC are patent. Status post cholecystectomy. Common bile duct measures 4 mm. PANCREAS: There is a 1.8 cm, exophytic, peripheral heterogeneous enhancing cystic lesion centered in the body of the pancreas. No main pancreatic ductal dilatation. No peripancreatic fluid collection. SPLEEN: 10 cm. No focal mass. ADRENAL GLANDS: No nodular lesions. KIDNEYS AND URETERS: Normal enhancement pattern throughout the renal parenchyma without enhancing mass. Multifocal less than 1.5 cm nonenhancing fluid signal characteristic lesions throughout the renal cortex and cortical medullary junction. No hydronephrosis. Main renal veins are patent. No lymphadenopathy in renal hilum. GASTROINTESTINAL TRACT: Abundant stool. No intestinal obstruction pattern. No ascites. ABDOMINAL WALL: Small fat-containing umbilical hernia. LYMPH NODES: No lymphadenopathy in the retroperitoneum or mesentery.. VASCULAR: No aneurysm or dissection, abdominal aorta. OSSEOUS STRUCTURES: Multilevel thoracolumbar spondylosis with some hypertrophy of the ligamentum flavum from T8 to T11 resulting in dorsal deformity of the thecal sac. Status post intervertebral discs spacer placement at L5-S1. There is a probable disc herniation at L4-5. 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 Malignancy cannot be excluded. Bilateral renal cysts, Bosniak type I.. Electronically signed by: Tao Green MD 02/17/2024 08:13 AM [facility]
[2023-12-20] MEDS: gadobutroL 10 ML VIAL IVPUSH (11:29)
== END 2023-12-20 10:17 | disposition home or self-care (01) ==
LOC: HO.MRI 10:16
PROVIDERS: PCP Internal Medicine; Visit Provider Internal Medicine
DX: K86.2 Cyst of pancreas (principal)
CPT/HCPCS: 74183; A9585

== ENCOUNTER 2024-01-12 07:33 | Emergency (ER) | payer OTHER, SELFPAY ==
[2024-01-12 07:40] VITALS: BP 97/62; PULSE 79; RESP 16; TEMP 36.5; O2SAT 96; BMI 33.5
[2024-01-12 08:19] LABS: MANUAL DIFF FLAG NO
[2024-01-12 08:30] LABS: Basophils Absolute Auto 0.1 X10*3/uL (0.0-0.2); Basophils Percent Auto 0.8 % (0-2); Eosinophils Absolute Auto 0.5 X10*3/uL (0.0-0.4); Eosinophils Percent Auto 8.2 % (0-4); Hematocrit 36.5 % (37.0-47.0); Imm Gran Abs Auto 0.01 X10*3/uL (0.00-0.03); Imm Gran Pct Auto 0.2 % (0.0-0.4); Lymphocytes Absolute Auto 2.1 X10*3/uL (1.2-4.9); Lymphocytes Percent Auto 34.8 % (20-40); Mean Corpuscular HGB Conc 32.9 g/dl (31.0-35.0); Mean Corpuscular Hemoglobin 30.8 pg (27.0-33.0); Mean Corpuscular Volume 93.6 fL (80.0-98.0); Mean Platelet Volume 8.5 fL (9.4-12.3); Monocytes Absolute Auto 0.4 X10*3/uL (0.1-1.2); Monocytes Percent Auto 6.6 % (2-11); Neutrophils Absolute Auto 2.9 x10*3/uL (2.0-8.3); Neutrophils Percent Auto 49.4 % (45-73); Platelet Count 217 X10*3/uL (160-400); Red Cell Distribution Width 12.9 % (11.0-16.0)
--- NOTE | 2024-01-12 08:37 | ED_ITS ---
HPI - Extremity Injury (Lower) General Chief Complaint: Extremity Injury, Lower Stated Complaint: LLE PAIN S/P FALL 1W AGO, SEEN:NO FINDINGS PER EMS Time Seen by Provider: 01/12/24 08:13 Source: patient Mode of arrival: EMS Limitations: no limitations History of Present Illness ED Provider: Dr. Gerson Carr HPI Narrative: 53-year-old female with history of frequent falls, MDD, anxiety, Bipolar disorder, polyarthralgias, PTSD, cannabis use, fibromyalgia presenting to the emergency department for evaluation of left groin, thigh and calf pain x2 weeks. Patient states that she fell down 5 steps at home proximally 2 weeks prior. She was seen here in the emergency department on 12/11/2023 and was diagnosed with contusion of the left shoulder, left hip status post fall. She had X-rays of the left shoulder, hip/pelvis, femur, and knee with no fracture seen your she also had a CT scan of the head without IV contrast with no acute abnormalities. Patient states that since being seen in the emergency department she continues to have significant pain in her left groin and left leg. She said the pain is gotten progressively worse to the point where she was having difficulty walking. She has been using a heating pad with no relief. She states she has been taking ibuprofen and Tylenol with only minimal relief for pain. She denied fever, chills,, numbness or weakness of her extremities. Related Data Home Medications ?Medication ?Instructions ?Recorded ?Confirmed ibuprofen 800 mg tablet 800 mg PO TID 11/12/23 quetiapine 100 mg tablet mg PO 11/12/23 Previous Rx's ?Medication ?Instructions ?Recorded duloxetine 30 mg capsule,delayed 30 mg PO DAILY 15 days #15 caps 07/06/23 release duloxetine 60 mg capsule,delayed 60 mg PO QAM 15 days #15 caps 07/06/23 release oxcarbazepine 150 mg tablet 150 mg PO BID 15 days #30 tabs 07/06/23 oxcarbazepine 600 mg tablet 600 mg PO BID 15 days #30 tabs 07/06/23 prazosin 1 mg capsule 1 mg PO BEDTIME 15 days #15 caps 07/06/23 quetiapine 400 mg tablet 400 mg PO BEDTIME 15 days #15 tabs 07/06/23 benztropine 1 mg tablet 1 mg PO .QHS #30 tabs 07/15/23 clonazepam 1 mg tablet 1 mg PO BID PRN Anxiety 15 days 07/15/23 #30 tabs ergocalciferol (vitamin D2) 1,250 1,250 mcg PO QWEEK #12 caps 07/15/23 mcg (50,000 unit) capsule (Vitamin D2) quetiapine 50 mg tablet 50 mg PO BID PRN severe anxiety or 07/15/23 agitation 15 days #30 tabs lorazepam 0.5 mg tablet (Ativan) 1 mg (2 x 0.5 mg) PO DAILY PRN 09/27/23 anxiety 1 day #2 tabs folding cane with seat #1 ea 11/12/23 peg 3350-electrolytes 236 240 ml PO Q10M colonoscopy #4,000 12/01/23 gram-22.74 gram-6.74 gram-5.86 mL gram solution (Golytely) acetaminophen 500 mg tablet 1,000 mg (2 x 500 mg) PO Q6H PRN 01/12/24 (Tylenol Extra Strength) fever or pain #20 tabs cyclobenzaprine 5 mg tablet 5 mg PO TID PRN muscle spasm or 01/12/24 pain #14 tabs ibuprofen 400 mg tablet 400 mg PO TID PRN fever or pain 01/12/24 #30 tabs morphine 15 mg immediate release 15 mg PO Q8H PRN pain #10 tabs 01/12/24 tablet Allergies Allergy/AdvReac Type Severity Reaction Status Date / Time fentanyl [FENTANYL] Allergy Intermediate VOMITING Verified 01/12/24 07:44 Penicillins [PENICILLINS] Allergy Intermediate ANAPHYLAXIS Verified 01/12/24 07:44 sertraline [From ZOLOFT] Allergy Intermediate ANXIETY Verified 01/12/24 07:44 zolpidem [From AMBIEN] Allergy Intermediate suicidal Verified 01/12/24 07:44 attempt with zolpidem Review of Systems 2 Review of Systems: Yes all other systems are reviewed and are negative PMFSH Past Medical History Medical History MDD (major depressive disorder), recurrent episode, moderate Physical exam Frequent falls Shoulder pain, bilateral Lumbar pain Chest pain Screening for cervical cancer Osteoarthritis of right knee Left foot pain Urinary incontinence Right foot pain Skin lesion Right knee pain Mid back pain on right side Right sided abdominal pain Cervical radiculopathy Osteoarthritis of acromioclavicular joint Rotator cuff tendonitis Chronic right shoulder pain Right shoulder pain Right hip pain Cervical strain Left foot pain Right foot pain Polyarthralgia Carpal tunnel syndrome Bipolar disorder Depression Anxiety Hypovitaminosis D Constipation by delayed colonic transit Surgical History Hx of colonoscopy History of surgery History of right hip replacement History of hemorrhoidectomy History of bunionectomy History of cholecystectomy History of appendectomy Family History Family History Father Depression Prostate cancer Chronic mental illness Mother Diabetes Cancer Breast cancer Maternal Aunt Breast cancer Family/Other Chronic mental illness Other Mental health disorder Social History Social History Household Members: Other Household Members Other:: My dog Housing: House Alcohol intake: never Patient Tobacco Use Status: Never used Tobacco e-Cigarette/Vaping Use: Never Used Second Hand Smoke Exposure: No Substance Use Type: Marijuana Advance Directives: No Advance Directives Information Provided: Yes service: No Current occupational status: disabled 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 Cognitive needs: No Hearing needs: No Vision needs: Yes (glasses) Physical Exam 2 Vital Signs: Vital Signs: Last Vital Signs Temp 98.0 F 01/12/24 09:21 Pulse 65 01/12/24 09:21 Resp 16 01/12/24 09:21 BP 98/56 L 01/12/24 09:21 Pulse Ox 97 01/12/24 09:21 O2 Del Method Room Air 01/12/24 09:21 BMI result Body Mass Index 33.5 Vital signs were normal Exam: General: Awake, alert in no distress Head: Normocephalic, atraumatic EENT: PERRL, Lids normal, sclera normal, conjunctiva normal, nose normal , ears normal, throat without erythema or exudates Neck: Supple, no adenopathy Lung: breath sounds symmetric, no wheezing, rales or rhonchi Chest: symmetric movement, nontender Heart: regular rate and rhythm, normal S1, S2 no murmurs or rubs Abdomen: soft, non-tender, nondistended, normal bowel sounds Back: no vertebral tenderness, no CVAT Extremities: There is no obvious deformity of her left lower extremity, the skin is normal with no ecchymosis, erythema or increased warmth. Patient has pain with palpation of the muscles of her calf and thigh as well as pain with movement of her ankle, knee and hip joints. The right lower extremities normal. Neuro: Awake, alert, oriented, normal speech, cranial nerves intact, moves all extremities symmetrically Psych: Pleasant, cooperative Medical Decision Making Medical Decision Making [facility] Narrative: 53-year-old female with history of frequent falls, MDD, anxiety, Bipolar disorder, polyarthralgias, PTSD, cannabis use, fibromyalgia presenting to the emergency department for evaluation of left groin, thigh and calf pain x2 weeks after falling down 5 stairs. Patient was seen in the emergency department at that time and had a negative workup including x-rays of her left lower extremity and hip. Vital signs were normal. Physical examination revealed tenderness palpation of the muscles of her calf and thigh as well as pain with movement of her ankle, knee and hip joints. Differential diagnosis: ?Includes but is not limited to contusion, compartment syndrome, fracture, rhabdomyolysis, fibromyalgia flare Course: 09:49 My interpretation patient's laboratory evaluation as follows: CBC was normal. CMP was normal. CK was slightly elevated 123. At this time I do not have a clear etiology for the patient's pain and I suspect that she may have a severe contusion/sprain of her lower extremity. The patient was advised to continue taking ibuprofen and Tylenol for pain not relieved by these medications she was prescribed morphine 15 mg 3 times a day as needed for pain. She was also given a prescription for cyclobenzaprine 5 mg 3 times a day as needed for pain and spasm. She was given printed and verbal instructions and discharged home. Admission/Observation Consideration of admission/observation: Escalation of care including admission/observation considered (Yes) Lab Data [facility] Lab Attestation statement: I reviewed the patient's lab results. 01/12/24 08:15 01/12/24 08:15 Labs: Lab Results 01/12/24 Range/Units 08:15 WBC 6.0 (4.8-10.8) X10*3/uL RBC 3.90 L (4.20-5.50) X10*6/uL Hgb 12.0 (12.0-16.0) g/dl Hct 36.5 L (37.0-47.0) % MCV 93.6 (80.0-98.0) fL MCH 30.8 (27.0-33.0) pg MCHC 32.9 (31.0-35.0) g/dl RDW 12.9 (11.0-16.0) % Plt Count 217 D (160-400) X10*3/uL MPV 8.5 L (9.4-12.3) fL Immature Gran % (Auto) 0.2 (0.0-0.4) % Neut % (Auto) 49.4 (45-73) % Lymph % (Auto) 34.8 (20-40) % [place] % (Auto) 6.6 (2-11) % Eos % (Auto) 8.2 H (0-4) % Baso % (Auto) 0.8 (0-2) % Lymph # (Auto) 2.1 (1.2-4.9) X10*3/uL [place] # (Auto) 0.4 (0.1-1.2) X10*3/uL Eos # (Auto) 0.5 H (0.0-0.4) X10*3/uL Baso # (Auto) 0.1 (0.0-0.2) X10*3/uL Abs Immat Gran (auto) 0.01 (0.00-0.03) X10*3/uL Absolute Neuts (auto) 2.9 (2.0-8.3) x10*3/uL Absolute Nucleated RBC 0.000 (0.0-0.012) X10*3/uL Nucleated RBC % (auto) 0.0 (0.0-0.2) /100WBC Sodium 139 (135-145) mmol/L Potassium 4.1 D (3.3-5.1) mmol/L Chloride 107 (96-108) mmol/L Carbon Dioxide 24 (22-29) mmol/L Anion Gap 12 (12-20) BUN 13 (9-16) mg/dL Creatinine 0.82 (0.5-1.4) mg/dL Estim Creat Clear Calc 86.5 Estimated GFR > 60 Random Glucose 90 (60-115) mg/dL Calcium 9.2 (8.4-10.2) mg/dL Total Bilirubin 0.2 (0.0-1.0) mg/dL AST 20 (5-31) U/L ALT 18 (0-31) U/L Alkaline Phosphatase 123 H (39-117) U/L Total Creatine Kinase 95 (26-140) U/L Total Protein 6.9 (6.5-8.0) g/dL Albumin 3.8 (3.5-5.0) g/dL Prescription Management I considered prescription management with: Pain Medication (Morphine) and Other (Anti spasmodic-Flexeril) Chronic Conditions Patient?s care impacted by: Other (Fibromyalgia) Discharge Plan Discharge Clinical Impression: Contusion of left hip and thigh Patient Disposition: Home, Self-Care Additional Instructions: Your blood work was normal. Your x-rays from your previous visit were normal and there were no broken bones noted which is reassuring. I suspect that your pain is due to very bad bruising of your muscles (contusion) Apply heating pad on low for 15 minutes 4 to 6 times a day to help with the pain. Take ibuprofen 400 mg pills, 1 pills every 6 hours as needed for pain. Take Tylenol (acetaminophen) 2 pills every 6 hours as needed for pain. For pain not relieved by ibuprofen or Tylenol take morphine 15 mg pills, 1 pill every 6 hours as needed for pain. This medication will make you sleepy, do not drive or work while taking this medication. Morphine is a narcotic medication and can be addicting. If you are concerned about addiction you can ask the pharmacist for less pills or do not get this prescription filled. Take Flexeril (cyclobenzaprine) 10 mg pills, 1 pill every 6-8 hours as needed for pain or spasm. ?This medication will make you sleepy. ?Do not drive or work while taking this medication. Follow-up with your doctor in 2 days. Please return to the emergency department if your symptoms get worse or if you develop any symptoms that are concerning to you. Prescriptions: New morphine 15 mg tablet 15 mg PO Q8H PRN (Reason: pain) Qty: 10 0RF Rx Instructions: Partial Fill upon patient request. cyclobenzaprine 5 mg tablet 5 mg PO TID PRN (Reason: muscle spasm or pain) Qty: 14 0RF acetaminophen [Tylenol Extra Strength] 500 mg tablet 1,000 mg PO Q6H PRN (Reason: fever or pain) Qty: 20 0RF ibuprofen 400 mg tablet 400 mg PO TID PRN (Reason: fever or pain) Qty: 30 0RF No Action oxcarbazepine 150 mg tablet 150 mg PO BID 15 Days Qty: 30 1RF prazosin 1 mg capsule 1 mg PO BEDTIME 15 Days Qty: 15 1RF oxcarbazepine 600 mg tablet 600 mg PO BID 15 Days Qty: 30 1RF duloxetine 60 mg capsule,delayed release(DR/EC) 60 mg PO QAM 15 Days Qty: 15 1RF quetiapine 400 mg tablet 400 mg PO BEDTIME 15 Days Qty: 15 0RF duloxetine 30 mg capsule,delayed release(DR/EC) 30 mg PO DAILY 15 Days Qty: 15 1RF clonazepam 1 mg tablet 1 mg PO BID PRN (Reason: Anxiety) 15 Days Qty: 30 0RF benztropine 1 mg tablet 1 mg PO .QHS Qty: 30 0RF quetiapine 50 mg tablet 50 mg PO BID PRN (Reason: severe anxiety or agitation) 15 Days Qty: 30 1RF ergocalciferol (vitamin D2) [Vitamin D2] 1,250 mcg (50,000 unit) capsule 1,250 mcg PO QWEEK Qty: 12 0RF lorazepam [Ativan] 0.5 mg tablet 1 mg PO DAILY PRN (Reason: anxiety) 1 Days Qty: 2 0RF Rx Instructions: Take 45 minutes before MRI. ibuprofen 800 mg tablet 800 mg PO TID quetiapine 100 mg tablet PO (DME) folding cane with seat See Rx Instructions .Route .MEDSUPPLY Qty: 1 0RF Rx Instructions: As directed peg 3350-electrolytes [Golytely] 236-22.74-6.74 -5.86 gram recon soln 240 ml PO Q10M Qty: 4000 0RF Rx Instructions: as per split prep instructions, until fecal effluent is clear Print Language: Cambodian
[2024-01-12 08:38] LABS: Alanine Aminotransferase 18 U/L (0-31); Albumin Level 3.8 g/dL (3.5-5.0); Alkaline Phosphatase 123 U/L (39-117); Anion Gap 12 (12-20); Aspartate Amino Transferase 20 U/L (5-31); Bilirubin Total 0.2 mg/dL (0.0-1.0); Blood Urea Nitrogen 13 mg/dL (9-16); Calcium 9.2 mg/dL (8.4-10.2); Carbon Dioxide 24 mmol/L (22-29); Chloride 107 mmol/L (96-108); Creatinine Clr Calc Pharmacy 86.5; Estimated Glomerular Filt Rate > 60; Glucose Random 90 mg/dL (60-115); Potassium 4.1 mmol/L (3.3-5.1); Sodium 139 mmol/L (135-145); Total Protein 6.9 g/dL (6.5-8.0)
[2024-01-12 09:21] VITALS: BP 98/56; PULSE 65; RESP 16; TEMP 36.7; O2SAT 97
[2024-01-12] MEDS: Morphine Sulfate Immed Release 15 MG TABLET PO (09:57)
[2024-01-12 10:26] VITALS: BP 106/66; PULSE 72; RESP 16; TEMP 36.8; O2SAT 97
== END 2024-01-12 10:27 | disposition home or self-care (01) ==
PROVIDERS: Emergency Provider Emergency Medicine Emergency Medical Services; PCP Internal Medicine
DX: S70.02XA Contusion of left hip, initial encounter (principal); W10.9XXA Fall (on) (from) unspecified stairs and steps, initial encounter; Y93.9 Activity, unspecified; Y92.9 Unspecified place or not applicable; Y99.9 Unspecified external cause status; M79.662 Pain in left lower leg; R10.30 Lower abdominal pain, unspecified
CPT/HCPCS: 36415; 80053; 82550; 85025; 99283; 99284

== ENCOUNTER 2024-01-17 06:37 | Emergency (ER) | payer OTHER, SELFPAY ==
--- NOTE | ~2024-01-17 | US_ITS ---
EXAMINATION: LEFT LOWER EXTREMITY DEEP VENOUS ULTRASOUND CLINICAL INFORMATION: Left lower extremity pain COMPARISON: None. TECHNIQUE: Duplex Doppler imaging with compression maneuvers were performed of the left lower extremity deep venous system. FINDINGS: The visualized common femoral, femoral and popliteal veins demonstrate normal compressibility and color flow without evidence of venous thrombosis. Visualized portions of the calf veins demonstrate normal color fill-in suggesting patency. There is no evidence of a Alvarado's cyst. US/US venous duplex LE LT IMPRESSION: No evidence of deep venous thrombosis involving the left lower extremity. Electronically signed by: Emmanuel Yuen MD 01/17/2024 08:47 AM EST
[2024-01-17 06:40] VITALS: BP 126/80; PULSE 85; O2SAT 98
[2024-01-17 06:46] VITALS: BP 119/69; PULSE 74; RESP 18; TEMP 36.6; O2SAT 97; BMI 31.9
--- NOTE | 2024-01-17 06:49 | ED_ITS ---
HPI - General Adult General Chief complaint: General Medical Stated complaint: l side hip & leg pain, r side neck pain, no trauma Time Seen by Provider: 01/17/24 06:41 Source: patient, EMS and RN notes reviewed Mode of arrival: EMS Limitations: physical limitation History of Present Illness ED Provider: Angeline HPI narrative: Patient is a 53-year-old female with history of frequent falls, MDD, anxiety, Bipolar disorder, polyarthralgias, PTSD, cannabis use, fibromyalgia presenting to the emergency department with complaint of ongoing left sided pain for the past month. Symptoms began over one month ago after a slip and fall down two stairs. Patient seen in this ED on 12/[address] head/c-spine as well as x- rays of shoulder, hip/pelvis and knee, all of which were negative for acute injuries. She returned to the ED on 01/11 with similar complaints and was discharged home with morphine for severe pain. Patient states this helped but has since run out, and pain was so severe this morning that she went downstairs in her apartment, then was unable to get up off the couch or go upstairs. Also using cannabis without relief. Denies any additional falls or other trauma. Denies saddle anesthesia or bowel/bladder incontinence. Denies fevers, history of IVDU or cancer. Denies any numbness/tingling to extremities. Primary area of pain is left groin, and pain radiates down left leg to ankle. Feels she is unable to safely ambulate around her home as she lives alone (with dog). MD complaint: left groin pain Onset (ago): month(s) Location: left and lower extremity Radiation: distal Severity: severe and similar to prior episodes Pain Consistency: constant Relieving factors: none Associated symptoms: denies other symptoms Treatments prior to arrival: NSAID and other Related Data Home Medications ?Medication ?Instructions ?Recorded ?Confirmed ibuprofen 800 mg tablet 800 mg PO TID 11/12/23 quetiapine 100 mg tablet mg PO 11/12/23 Previous Rx's ?Medication ?Instructions ?Recorded duloxetine 30 mg capsule,delayed 30 mg PO DAILY 15 days #15 caps 07/06/23 release duloxetine 60 mg capsule,delayed 60 mg PO QAM 15 days #15 caps 07/06/23 release oxcarbazepine 150 mg tablet 150 mg PO BID 15 days #30 tabs 07/06/23 oxcarbazepine 600 mg tablet 600 mg PO BID 15 days #30 tabs 07/06/23 prazosin 1 mg capsule 1 mg PO BEDTIME 15 days #15 caps 07/06/23 quetiapine 400 mg tablet 400 mg PO BEDTIME 15 days #15 tabs 07/06/23 benztropine 1 mg tablet 1 mg PO .QHS #30 tabs 07/15/23 clonazepam 1 mg tablet 1 mg PO BID PRN Anxiety 15 days 07/15/23 #30 tabs ergocalciferol (vitamin D2) 1,250 1,250 mcg PO QWEEK #12 caps 07/15/23 mcg (50,000 unit) capsule (Vitamin D2) quetiapine 50 mg tablet 50 mg PO BID PRN severe anxiety or 07/15/23 agitation 15 days #30 tabs lorazepam 0.5 mg tablet (Ativan) 1 mg (2 x 0.5 mg) PO DAILY PRN 09/27/23 anxiety 1 day #2 tabs folding cane with seat #1 ea 11/12/23 peg 3350-electrolytes 236 240 ml PO Q10M colonoscopy #4,000 12/01/23 gram-22.74 gram-6.74 gram-5.86 mL gram solution (Golytely) acetaminophen 500 mg tablet 1,000 mg (2 x 500 mg) PO Q6H PRN 01/12/24 (Tylenol Extra Strength) fever or pain #20 tabs cyclobenzaprine 5 mg tablet 5 mg PO TID PRN muscle spasm or 01/12/24 pain #14 tabs ibuprofen 400 mg tablet 400 mg PO TID PRN fever or pain 01/12/24 #30 tabs morphine 15 mg immediate release 15 mg PO Q8H PRN pain #10 tabs 01/12/24 tablet clonazepam 1 mg tablet 1 mg PO BID #6 tabs 01/17/24 Allergies Allergy/AdvReac Type Severity Reaction Status Date / Time fentanyl [FENTANYL] Allergy Intermediate VOMITING Verified 01/17/24 06:48 Penicillins [PENICILLINS] Allergy Intermediate ANAPHYLAXIS Verified 01/17/24 06:48 sertraline [From ZOLOFT] Allergy Intermediate ANXIETY Verified 01/17/24 06:48 zolpidem [From AMBIEN] Allergy Intermediate suicidal Verified 01/17/24 06:48 attempt with zolpidem Review of Systems 2 Review of Systems: As per HPI. Yes all other systems are reviewed and are negative [facility] Past Medical History Medical History MDD (major depressive disorder), recurrent episode, moderate Physical exam Frequent falls Shoulder pain, bilateral Lumbar pain Chest pain Screening for cervical cancer Osteoarthritis of right knee Left foot pain Urinary incontinence Right foot pain Skin lesion Right knee pain Mid back pain on right side Right sided abdominal pain Cervical radiculopathy Osteoarthritis of acromioclavicular joint Rotator cuff tendonitis Chronic right shoulder pain Right shoulder pain Right hip pain Cervical strain Left foot pain Right foot pain Polyarthralgia Carpal tunnel syndrome Bipolar disorder Depression Anxiety Hypovitaminosis D Constipation by delayed colonic transit Surgical History Hx of colonoscopy History of surgery History of right hip replacement History of hemorrhoidectomy History of bunionectomy History of cholecystectomy History of appendectomy Family History Family History Father Depression Prostate cancer Chronic mental illness Mother Diabetes Cancer Breast cancer Maternal Aunt Breast cancer Family/Other Chronic mental illness Other Mental health disorder Social History Social History Household Members: Other Household Members Other:: My dog Housing: House Alcohol intake: never Patient Tobacco Use Status: Never used Tobacco e-Cigarette/Vaping Use: Never Used Second Hand Smoke Exposure: No Substance Use Type: Marijuana Advance Directives: Yes Advance Directives on File: Yes Advance Directives Date on File: 01/17/24 Do you have a plan to hurt others: No Plan service: No Current occupational status: disabled 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 Cognitive needs: No Hearing needs: No Vision needs: Yes (glasses) Physical Exam ED Vital Signs: Vital Signs - 24 hr 01/17/24 06:46 01/17/24 09:52 01/17/24 14:00 Temperature 97.9 F 97.4 F 97.9 F Pulse Rate 74 60 66 Respiratory Rate 18 14 16 Blood Pressure 119/69 110/66 125/60 Pulse Oximetry 97 96 97 Oxygen Delivery Method Room Air Room Air Room Air BMI result Body Mass Index 31.9 Medications Administered Discontinued Medications Generic Name Dose Route Start Last Admin Trade Name Freq PRN Reason Stop Dose Admin Acetaminophen 975 mg 01/17/24 11:41 01/17/24 12:16 Acetaminophen 325 Mg Tablet PO 01/17/24 11:42 975 mg ONCE ONE Administration Cyclobenzaprine HCl 10 mg 01/17/24 11:41 01/17/24 12:18 Cyclobenzaprine Hcl 10 Mg Tablet PO 01/17/24 11:42 10 mg ONCE ONE Administration Ketorolac Tromethamine 30 mg 01/17/24 08:06 01/17/24 08:31 Ketorolac Tromethamine 30 Mg/Ml Vial IM 01/17/24 08:07 30 mg ONCE ONE Administration Medical Decision Making Medical Decision Making [facility] Narrative: Patient is a 53-year-old female with history of frequent falls, MDD, anxiety, Bipolar disorder, polyarthralgias, PTSD, cannabis use, fibromyalgia presenting to the emergency department with complaint of ongoing left sided pain for the past month. On exam patient is awake, A+Ox3, VS WNL, afebrile, normal neurological exam without focal deficits, physical exam findings as above. Given reported symptoms and physical exam findings, initial differential includes groin strain, fibromyalgia flare, osteoarthritis, chronic pain. Do not suspect septic arthritis, compartment syndrome. Patient seen by ortho in October and was noted to have poor walking mechanics, and was referred to a foot and ankle surgeon. Labs unremarkable. No DVT to LLE on u/S. My interpretation is in agreement with the radiologist's interpretation. Patient in agreement with PT eval, as she states she cannot ambulate or walk up stairs at home and she lives alone. Patient placed on physician observation at 09:21 pending PT/CM evals. Per CM, patient to go to [facility] today at 17:00. Observation care revealed that patient does not meet medical necessity for hospitalization. Final disposition discussed with patient. The patient completed observation care at 17:00 on 01/17/24. Differential Diagnosis Differential Diagnoses: The differential diagnosis associated with the presentation includes As per [facility]. Lab Data [facility] Lab Attestation statement: I reviewed the patient's lab results. As per MDM 01/17/24 08:17 01/17/24 08:17 Labs: Lab Results 01/17/24 01/17/24 Range/Units 08:17 09:58 WBC 6.1 (4.8-10.8) X10*3/uL RBC 4.24 (4.20-5.50) X10*6/uL Hgb 13.3 (12.0-16.0) g/dl Hct 39.5 (37.0-47.0) % MCV 93.2 (80.0-98.0) fL MCH 31.4 (27.0-33.0) pg MCHC 33.7 (31.0-35.0) g/dl RDW 13.0 (11.0-16.0) % Plt Count 219 (160-400) X10*3/uL MPV 8.4 L (9.4-12.3) fL Immature Gran % (Auto) 0.2 (0.0-0.4) % Neut % (Auto) 53.5 (45-73) % Lymph % (Auto) 34.6 (20-40) % Gentry % (Auto) 5.9 (2-11) % Eos % (Auto) 5.1 H (0-4) % Baso % (Auto) 0.7 (0-2) % Lymph # (Auto) 2.1 (1.2-4.9) X10*3/uL Gentry # (Auto) 0.4 (0.1-1.2) X10*3/uL Eos # (Auto) 0.3 (0.0-0.4) X10*3/uL Baso # (Auto) 0.0 (0.0-0.2) X10*3/uL Abs Immat Gran (auto) 0.01 (0.00-0.03) X10*3/uL Absolute Neuts (auto) 3.3 (2.0-8.3) x10*3/uL Absolute Nucleated RBC 0.000 (0.0-0.012) X10*3/uL Nucleated RBC % (auto) 0.0 (0.0-0.2) /100WBC PT 12.9 H (10.9-12.4) SEC INR 1.1 (0.9-1.1) Sodium 142 (135-145) mmol/L Potassium 3.9 (3.3-5.1) mmol/L Chloride 109 H (96-108) mmol/L Carbon Dioxide 24 (22-29) mmol/L Anion Gap 13 (12-20) BUN 9 (9-16) mg/dL Creatinine 0.77 (0.5-1.4) mg/dL Estim Creat Clear Calc 88.8 Estimated GFR > 60 Random Glucose 87 (60-115) mg/dL Calcium 9.7 (8.4-10.2) mg/dL Total Bilirubin 0.3 (0.0-1.0) mg/dL AST 23 (5-31) U/L ALT 19 (0-31) U/L Alkaline Phosphatase 130 H (39-117) U/L Total Creatine Kinase 79 (26-140) U/L Total Protein 7.4 (6.5-8.0) g/dL Albumin 4.2 (3.5-5.0) g/dL COVID-19 (JOLENE) Negative (Negative) COVID-19 Clin Com See Note Independent Interpretation I performed an independent interpretation of an: Ultrasound Interpretation: No DVT to LLE on u/S. Radiology Impression Discussion of test interpretation with radiology: I have reviewed the radiologist's reading. Radiologist Impression: US/US venous duplex LE LT IMPRESSION: No evidence of deep venous thrombosis involving the left lower extremity. External Record Review External record reviewed: Inpatient record, Office record and Outpatient record Discharge Plan Discharge Clinical Impression: Strain of left groin Patient Disposition: Xfer Inpatient Rehab Fac Transfer Details: to [facility] Prescriptions: New clonazepam 1 mg tablet 1 mg PO BID Qty: 6 0RF No Action oxcarbazepine 150 mg tablet 150 mg PO BID 15 Days Qty: 30 1RF prazosin 1 mg capsule 1 mg PO BEDTIME 15 Days Qty: 15 1RF oxcarbazepine 600 mg tablet 600 mg PO BID 15 Days Qty: 30 1RF duloxetine 60 mg capsule,delayed release(DR/EC) 60 mg PO QAM 15 Days Qty: 15 1RF quetiapine 400 mg tablet 400 mg PO BEDTIME 15 Days Qty: 15 0RF duloxetine 30 mg capsule,delayed release(DR/EC) 30 mg PO DAILY 15 Days Qty: 15 1RF clonazepam 1 mg tablet 1 mg PO BID PRN (Reason: Anxiety) 15 Days Qty: 30 0RF benztropine 1 mg tablet 1 mg PO .QHS Qty: 30 0RF quetiapine 50 mg tablet 50 mg PO BID PRN (Reason: severe anxiety or agitation) 15 Days Qty: 30 1RF ergocalciferol (vitamin D2) [Vitamin D2] 1,250 mcg (50,000 unit) capsule 1,250 mcg PO QWEEK Qty: 12 0RF morphine 15 mg tablet 15 mg PO Q8H PRN (Reason: pain) Qty: 10 0RF Rx Instructions: Partial Fill upon patient request. cyclobenzaprine 5 mg tablet 5 mg PO TID PRN (Reason: muscle spasm or pain) Qty: 14 0RF acetaminophen [Tylenol Extra Strength] 500 mg tablet 1,000 mg PO Q6H PRN (Reason: fever or pain) Qty: 20 0RF ibuprofen 400 mg tablet 400 mg PO TID PRN (Reason: fever or pain) Qty: 30 0RF lorazepam [Ativan] 0.5 mg tablet 1 mg PO DAILY PRN (Reason: anxiety) 1 Days Qty: 2 0RF Rx Instructions: Take 45 minutes before MRI. ibuprofen 800 mg tablet 800 mg PO TID quetiapine 100 mg tablet PO (DME) folding cane with seat See Rx Instructions .Route .MEDSUPPLY Qty: 1 0RF Rx Instructions: As directed peg 3350-electrolytes [Golytely] 236-22.74-6.74 -5.86 gram recon soln 240 ml PO Q10M Qty: 4000 0RF Rx Instructions: as per split prep instructions, until fecal effluent is clear Referrals: [facility] [Outside] Print Language: Zambian
[2024-01-17 08:21] LABS: MANUAL DIFF FLAG NO
[2024-01-17 08:22] LABS: Basophils Percent Auto 0.7 % (0-2); Eosinophils Absolute Auto 0.3 X10*3/uL (0.0-0.4); Eosinophils Percent Auto 5.1 % (0-4); Hematocrit 39.5 % (37.0-47.0); Hemoglobin 13.3 g/dl (12.0-16.0); Imm Gran Abs Auto 0.01 X10*3/uL (0.00-0.03); Imm Gran Pct Auto 0.2 % (0.0-0.4); Lymphocytes Absolute Auto 2.1 X10*3/uL (1.2-4.9); Lymphocytes Percent Auto 34.6 % (20-40); Mean Corpuscular HGB Conc 33.7 g/dl (31.0-35.0); Mean Corpuscular Hemoglobin 31.4 pg (27.0-33.0); Mean Corpuscular Volume 93.2 fL (80.0-98.0); Mean Platelet Volume 8.4 fL (9.4-12.3); Monocytes Absolute Auto 0.4 X10*3/uL (0.1-1.2); Monocytes Percent Auto 5.9 % (2-11); Neutrophils Absolute Auto 3.3 x10*3/uL (2.0-8.3); Neutrophils Percent Auto 53.5 % (45-73); Platelet Count 219 X10*3/uL (160-400); Red Blood Count 4.24 X10*6/uL (4.20-5.50); White Blood Count 6.1 X10*3/uL (4.8-10.8)
[2024-01-17 08:27] LABS: INTERNATIONAL NORM RATIO 1.1 (0.9-1.1); Prothrombin Time 12.9 SEC (10.9-12.4)
[2024-01-17] MEDS: Ketorolac Tromethamine 30 MG/ML VIAL IM (08:31)
[2024-01-17 08:38] LABS: Alanine Aminotransferase 19 U/L (0-31); Albumin Level 4.2 g/dL (3.5-5.0); Alkaline Phosphatase 130 U/L (39-117); Anion Gap 13 (12-20); Aspartate Amino Transferase 23 U/L (5-31); Bilirubin Total 0.3 mg/dL (0.0-1.0); Blood Urea Nitrogen 9 mg/dL (9-16); Calcium 9.7 mg/dL (8.4-10.2); Carbon Dioxide 24 mmol/L (22-29); Chloride 109 mmol/L (96-108); Creatinine Clr Calc Pharmacy 88.8; Estimated Glomerular Filt Rate > 60; Glucose Random 87 mg/dL (60-115); Potassium 3.9 mmol/L (3.3-5.1); Sodium 142 mmol/L (135-145); Total Protein 7.4 g/dL (6.5-8.0)
[2024-01-17 09:52] VITALS: BP 110/66; PULSE 60; RESP 14; TEMP 36.3; O2SAT 96
--- NOTE | 2024-01-17 10:24 | PC.NURSE ---
Report given to Matilde CONNELLY in ED overflow. Pt transferred.
[2024-01-17 10:47] LABS: COVID-19 Test Negative (Negative); IDNOW Serial# 9DB6401D
--- NOTE | 2024-01-17 11:26 | PC.NURSE ---
Pt settle into overflow 2. She reports at this time her chronic low back pain is more than the knee pain. Knee 03/24 and low back 05/22 she states she uses a patch at home. BOTTLE CAPPING MACHINE OPERATOR aware and orders pending....
--- NOTE | 2024-01-17 11:36 | PC.NURSE ---
pt A+Ox4, transfered from [facility] and settled into overflow 3. she reports pain after IM Toradol is 6/10. better but still not good FINISH SAW OPERATOR Angeline aware and orders pending.
--- NOTE | 2024-01-17 11:44 | PC.NURSE ---
Pt's neighbor Nupur Andrade [phone] has patients house keys and needs to be called when pt being discharged. She states she always has her phone with her and patient is aware.
--- NOTE | 2024-01-17 12:13 | MHC.CM.ED ---
Received case management consult from Ana LANG. Patient came to the ER ue to leg/hip pain. Work up essentially negative. Physical therarpy eval completed. Short term rehab is recommended. Met with patient and sister, David, in regards to discharge planning. Patient's primary language is Nepali. She does understand and speak some Bangladeshi. David speaks Bangladeshi. 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 Patient lives alone, ambulates with a cane and has [employer] hours through [facility]. PCP verified. Patient requesting rehab in [place]. Referral broadcasted to all facilities in [place] that are contracted with [facility]: [facility], [facility] and [facility]. [facility] is the only facility that is able to offer a bed. Patient agreeable. [facility] [place] has been made aware and is in the process of obtaining insurance auth. Patient will need [facility] Level 2 d/t partial psych hospitalization. T/W has already submitted for this. Continue to monitor for d/c needs.
[2024-01-17] MEDS: Acetaminophen 325 MG TABLET 975 MG PO ×2 (12:16→16:46)
[2024-01-17] MEDS: Cyclobenzaprine HCl 10 MG TABLET PO (12:18)
--- NOTE | 2024-01-17 12:18 | PC.NURSE ---
pt c/o left hip pain - medicated per provider order. effectiveness pending. pt otherwise resting in no apparent distress while watching tv. no sob/wob noted. respirations even/unlabored. bed alarm turned on for safety precautions. plan of care ongoing. call john placed within reach.
--- NOTE | 2024-01-17 12:39 | PC.NURSE ---
pt ambulated to the restroom w/ use of cane (baseline) independently. strong steady gait noted. no assistance needed. pt able to place self back in bed independently. bed alarm turned on for safety precautions. no sob/wob noted. respirations even/unlabored. plan of care ongoing. call john placed within reach.
[2024-01-17 14:00] VITALS: BP 125/60; PULSE 66; RESP 16; TEMP 36.6; O2SAT 97
--- NOTE | 2024-01-17 15:59 | MHC.CM.ED ---
HCP completed, signed and witnessed. Original given to patient. Copy placed in chart. Insurance auth has been obtained by [facility]. Patient can leave via [facility] at 5pm as long as [facility] PASRR Level 2 is received. Patient, Iliana CONNELLY and Ana LANG aware. Continue to monitor for d/c needs.
[2024-01-17 16:45] VITALS: BP 135/65; PULSE 65; RESP 16; TEMP 36.7; O2SAT 99
--- NOTE | 2024-01-17 18:27 | PC.NURSE ---
report given to GODWIN Cain at [facility] at this time. pt being transported to [facility] via SALV[facility] at this time.
[2024-01-17 18:28] VITALS: BP 135/65; PULSE 65; RESP 16; TEMP 36.7; O2SAT 99
== END 2024-01-17 18:28 ==
PROVIDERS: Registered Nurse Emergency; Emergency Provider Student in an Organized Health Care Education/Training Program; PCP Internal Medicine
DX: S39.011A Strain of muscle, fascia and tendon of abdomen, initial encounter (principal); W10.9XXA Fall (on) (from) unspecified stairs and steps, initial encounter; Y93.9 Activity, unspecified; Y92.9 Unspecified place or not applicable; Y99.9 Unspecified external cause status; M79.662 Pain in left lower leg; Z79.899 Other long term (current) drug therapy
CPT/HCPCS: 36415; 80053; 82550; 85025; 85610; 87635; 93971; 96372; 97162; 99284; J1885

== ENCOUNTER 2024-02-01 10:33 | Outpatient (AMB) | payer OTHER, SELFPAY ==
[2024-02-01 10:37] VITALS: BP 138/70; PULSE 81; O2SAT 98; BMI 33.6
--- NOTE | 2024-02-01 10:37 | MHC.PC.OV ---
Vital Signs 02/01/24 10:37 Height 5 ft 5 in Weight 202 lb BMI 33.6 BP 138/70 Blood Pressure Location Lt brachial Position Sitting Pulse 81 Pulse Source Pulse Oximeter Pulse Oximetry (%) 98 Oxygen Delivery Method Room Air Intake [place] [facility] [place] dizziness/falls Allergies fentanyl [FENTANYL] Allergy (Intermediate, Verified 02/01/24 10:38) VOMITING Penicillins [PENICILLINS] Allergy (Intermediate, Verified 02/01/24 10:38) ANAPHYLAXIS sertraline [From ZOLOFT] Allergy (Intermediate, Verified 02/01/24 10:38) ANXIETY zolpidem [From AMBIEN] Allergy (Intermediate, Verified 02/01/24 10:38) suicidal attempt with zolpidem Tobacco use date assessed: 06/01/23 Dental Screening Dental Screen Date: 06/01/23 HPI HPI Comments History of Present Illness Details 54 y/o female patient who presents to the clinic for HDF. She was [place] [facility] [place] - 01/13 due to Left Hip/thigh contusion. Images were negative for fracture. She had to be admitted at [facility] for pain control. [facility] Medical History MDD (major depressive disorder), recurrent episode, moderate Physical exam Frequent falls Shoulder pain, bilateral Lumbar pain Chest pain Screening for cervical cancer Osteoarthritis of right knee Left foot pain Urinary incontinence Right foot pain Skin lesion Right knee pain Mid back pain on right side Right sided abdominal pain Cervical radiculopathy Osteoarthritis of acromioclavicular joint Rotator cuff tendonitis Chronic right shoulder pain Right shoulder pain Right hip pain Cervical strain Left foot pain Right foot pain Polyarthralgia Carpal tunnel syndrome Bipolar disorder Depression Anxiety Hypovitaminosis D Constipation by delayed colonic transit Surgical History Hx of colonoscopy History of surgery History of right hip replacement History of hemorrhoidectomy History of bunionectomy History of cholecystectomy History of appendectomy Family History Father Depression Prostate cancer Chronic mental illness Mother Diabetes Cancer Breast cancer Maternal Aunt Breast cancer Family/Other Chronic mental illness Other Mental health disorder Social History Household Members: Other Household Members Other:: My dog Housing: House Alcohol intake: never Patient Tobacco Use Status: Never used Tobacco Tobacco use type: Cigarette e-Cigarette/Vaping Use: Never Used Second Hand Smoke Exposure: No Substance Use Type: Marijuana Advance Directives Date on File: 01/17/24 service: No Current occupational status: disabled 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 1. Little interest or pleasure in doing things: nearly every day 2. Feeling down, depressed, or hopeless: nearly every day 3. Trouble falling or staying asleep, or sleeping too much: more than half the days 4. Feeling tired or having little energy: nearly every day 5. Poor appetite or overeating: nearly every day 6. Feeling bad about yourself - or that you are a failure or have let yourself or your family down: nearly every day 7. Trouble concentrating on things, such as reading the newspaper or watching television: nearly every day 8. Moving or speaking so slowly that other people could have noticed. Or the opposite - being so fidgety or restless that you have been moving around a lot more than usual: more than half the days 9. Thoughts that you would be better off or of hurting yourself in some way: several days Total score: 23 Depression Screening Interpretation: Positive (no suicidal thoughts) Depression Screening Follow-up: Existing condition, In treatment, Community Mental Health Worker F/U and Follow-up Visit Requested Depression Screening Done: Yes 22531 - PHQ-9 Billing: Yes Source: Developed by Drs. Tai Romero, Renny Rhoades and colleagues, with an educational emily from [employer]. Thrive Questionnaire Date Thrive assessed: 04/14/23 AUDIT C Alcohol Use Questionnaire (AUDIT-C) 3. How often do you have six or more drinks on one occasion?: Never Total Score: 0 DAVID-7 AMB Questionnaire DAVID-7 Date DAVID - 7 assessed: 04/14/23 Source: Developed by Drs. Tai Romero, Rochelle London, Renny Scales and colleagues, with an educational emily from [employer]. Review of Systems Const All systems reviewed & are unremarkable except as noted in HPI and below Physical exam (Primary Care) Vital Signs: Last Vital Signs Pulse 81 02/01/24 10:37 BP 138/70 02/01/24 10:37 Pulse Ox 98 02/01/24 10:37 Oxygen Delivery Method Room Air 02/01/24 10:37 BMI result Body Mass Index 33.6 Tobacco/Smoking Status: Tobacco use Status Tobacco use date assessed 06/01/23 02/01/24 10:45 Patient Tobacco Use Status Never used Tobacco 02/01/24 10:45 Tobacco use type Cigarette 02/01/24 10:45 e-Cigarette/Vaping Use Never Used 02/01/24 10:45 PHQ-9: PHQ-9 Score PHQ-9: Total score 23 02/01/24 13:07 Depression Screening Interpretation: Positive (no suicidal thoughts) Depression Screening Follow-up: Existing condition, In treatment, Community Mental Health Worker F/U and Follow-up Visit Requested Thrive Assessment: Date of Thrive Assessment Date Thrive assessed 04/14/23 02/01/24 10:45 Const General: no acute distress Orientation/consciousness: patient oriented x3 Limitations: ambulation with walker Resp Effort & Inspection: normal respiratory effort Auscultation: clear to auscultation bilaterally Cardio Heart sounds: S1 normal heart sound present and S2 normal heart sound present Neuro General: patient oriented x3 Gait exam (Neuro): Assistive device used (walker) Extrem Left lower extremity: hip/thigh Details: tenderness; no swelling and no crepitus Psych Speech and movement: Normal speech and movement present Coding Level of Care Code Est Pt Level 4 (94639) Diagnoses Contusion of left hip, initial encounter S70.02XA Encounter type: initial encounter Additional Codes PHQ-9 - 24066 - PHQ-9 Billing: Yes ([id number]) Time Spent (min) 20 Assessment & Plan Assessment & Plan (1) Contusion of hip, left: Code(s): S70.02XA - Contusion of left hip, initial encounter Qualifiers: Encounter type: initial encounter Qualified Code(s): S70.02XA - Contusion of left hip, initial encounter Plan: Stable, no further pain.
== END 2024-02-01 11:09 | disposition home or self-care (01) ==
PROVIDERS: PCP Internal Medicine; Visit Provider Nurse Practitioner Family
DX: S70.02XA Contusion of left hip, initial encounter (principal)

== ENCOUNTER → 2024-02-01 10:33 | Outpatient (BNVA) | payer OTHER, SELFPAY | PROVIDERS: PCP Internal Medicine; Visit Provider Nurse Practitioner Family | DX: S70.02XA Contusion of left hip, initial encounter (principal); Z91.81 History of falling | CPT/HCPCS: 96127; 99212 ==

== ENCOUNTER 2024-02-16 09:48 | Outpatient (AMB) | payer OTHER, SELFPAY ==
--- NOTE | 2024-02-16 09:54 | A.OFFPC_ITS ---
Vital Signs 02/16/24 09:55 Height 5 ft 5 in Weight 194 lb BMI 32.3 BP 119/80 Blood Pressure Location Lt brachial Position Sitting Intake Visit Reasons: Regular visit Intake Note: Patient here for follow up , c/o left side leg pain, foot pain requesting referral to [facility] [employer] Professor Required: No Accompanied by: Self / Same As Patient Allergies fentanyl [FENTANYL] Allergy (Intermediate, Verified 02/16/24 10:19) VOMITING Penicillins [PENICILLINS] Allergy (Intermediate, Verified 02/16/24 10:19) ANAPHYLAXIS sertraline [From ZOLOFT] Allergy (Intermediate, Verified 02/16/24 10:19) ANXIETY zolpidem [From AMBIEN] Allergy (Intermediate, Verified 02/16/24 10:19) suicidal attempt with zolpidem Medication List - Last Reconciled 02/16/24 by Valarie Akbar MD acetaminophen (Tylenol Extra Strength) 1,000 mg (2 x 500 mg) PO Q6H PRN benztropine 1 mg PO .QHS clonazepam 1 mg PO BID cyclobenzaprine 5 mg PO TID PRN duloxetine 60 mg PO QAM 15 days duloxetine 30 mg PO DAILY 15 days ergocalciferol (vitamin D2) (Vitamin D2) 1,250 mcg PO QWEEK [folding cane with seat As directed] ibuprofen 400 mg PO TID PRN ibuprofen 800 mg PO TID lorazepam (Ativan) 1 mg (2 x 0.5 mg) PO DAILY PRN 1 day morphine 15 mg PO Q8H PRN oxcarbazepine 150 mg PO BID 15 days oxcarbazepine 600 mg PO BID 15 days peg 3350-electrolytes 236-22.74-6.74 -5.86 gram (Golytely) 240 mL PO Q10M prazosin 1 mg PO BEDTIME 15 days quetiapine 400 mg PO BEDTIME 15 days quetiapine 50 mg PO BID PRN 15 days quetiapine mg PO Tobacco use date assessed: 06/01/23 Dental Screening Dental Screen Date: 02/16/24 Did you have a dental visit in the last 12 months?: No Did you have a dental problem in the last 6 months where you did not have access to dental care?: No Was dental information given to patient?: Patient has dentist HPI HPI Comments History of Present Illness Details The patient is a 54-year-old female presenting with left hip arthritis and related mobility issues. The patient reports a history of left hip arthritis that affects her ability to climb stairs. The condition is primarily managed through medications, but she notes that ibuprofen 800 mg has been ineffective, causing constipation, while morphine previously provided temporary pain relief during emergency visits. She sleeps with shoes on to prevent falls due to instability when rising from bed. The patient has undergone two surgeries on her foot, with subsequent complications after the initial surgeon transferred to [place]. She experiences significant pain and difficulty walking due to the improper healing or placement of surgical hardware. Previous management included being referred to podiatry, but the outcome was not discussed. She has mild major depression with anxiety follow by Psychiatry and has been well controlled with medications. [facility] Medical History (Updated 02/16/24 @ 10:44 by Valarie Akbar MD) MDD (major depressive disorder), recurrent episode, moderate Physical exam Frequent falls Shoulder pain, bilateral Lumbar pain Chest pain Screening for cervical cancer Osteoarthritis of right knee Left foot pain Urinary incontinence Right foot pain Skin lesion Right knee pain Mid back pain on right side Right sided abdominal pain Cervical radiculopathy Osteoarthritis of acromioclavicular joint Rotator cuff tendonitis Chronic right shoulder pain Right shoulder pain Right hip pain Cervical strain Left foot pain Right foot pain Polyarthralgia Carpal tunnel syndrome Bipolar disorder Depression Anxiety Hypovitaminosis D Constipation by delayed colonic transit Surgical History Hx of colonoscopy History of surgery History of right hip replacement History of hemorrhoidectomy History of bunionectomy History of cholecystectomy History of appendectomy Family History Father Depression Prostate cancer Chronic mental illness Mother Diabetes Cancer Breast cancer Maternal Aunt Breast cancer Family/Other Chronic mental illness Other Mental health disorder Social History Household Members: Other Household Members Other:: My dog Housing: House Alcohol intake: never Patient Tobacco Use Status: Never used Tobacco Tobacco use type: Cigarette e-Cigarette/Vaping Use: Never Used Second Hand Smoke Exposure: No Substance Use Type: Marijuana Advance Directives Date on File: 01/17/24 service: No Current occupational status: disabled 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 Tai Romero, Rochelle London, Renny Scales and colleagues, with an educational emily from [employer]. Review of Systems Const All systems reviewed & are unremarkable except as noted in HPI and below Card Denies chest pain at rest, Denies chest pain with activity, Denies edema, Denies irregular heart rhythm, Denies claudication, Denies dyspnea, Denies dyspnea on exertion, Denies orthopnea, Denies paroxysmal nocturnal dyspnea and Denies slow heart rate Resp Denies cough, Denies dyspnea and Denies dyspnea on exertion GI Denies abdominal pain, Denies change in bowel habits, Denies excessive flatus, Denies nausea and Denies vomiting Denies urinary incontinence, Denies urinary hesitancy and Denies urinary urgency Musc Denies atrophy, Denies deformity, Reports arthralgias, Reports limited range of motion and Reports muscle cramps Skin/Breast Denies bleeding lesions, Denies changing lesions and Denies rash Physical exam (Primary Care) Vital Signs: Last Vital Signs BP 119/80 02/16/24 09:55 BMI result Body Mass Index 32.3 BMI Assessment/Plan discussion: High BMI High, discussed plan: lifestyle, weight reduction, dietary and physical activity Tobacco/Smoking Status: Tobacco use Status Tobacco use date assessed 06/01/23 02/16/24 10:03 Patient Tobacco Use Status Never used Tobacco 02/16/24 10:03 Tobacco use type Cigarette 02/16/24 10:03 e-Cigarette/Vaping Use Never Used 02/16/24 10:03 Thrive Assessment: Date of Thrive Assessment Date Thrive assessed 04/14/23 02/16/24 10:03 Const Limitations: ambulation with cane Resp Effort & Inspection: normal respiratory effort Auscultation: clear to auscultation bilaterally Cardio Jugular venous distension: no JVD Rate: regular rate Rhythm: regular rhythm Heart sounds: S1 normal heart sound present and S2 normal heart sound present Extrem Other: left foot callus, left hip tenderness General: Yes full ROM Coding Level of Care Code Est Pt Level 4 (32096) Complex EM visit Add On G2211 Diagnoses Osteoarthritis of left hip M16.12 Foot callus L84 Mild major depression F32.0 DAVID (generalized anxiety disorder) F41.1 Time Spent (min) 22 Assessment & Plan Assessment & Plan (1) Osteoarthritis of left hip: Code(s): M16.12 - Unilateral primary osteoarthritis, left hip Category: Medical (2) Foot callus: Code(s): L84 - Corns and callosities Category: Medical (3) Mild major depression: Code(s): F32.0 - Major depressive disorder, single episode, mild Category: Medical (4) DAVID (generalized anxiety disorder): Code(s): F41.1 - Generalized anxiety disorder Category: Medical Plan - Left Hip Arthritis: Referral to an labeling specialist for comprehensive evaluation and management. Consideration of imaging to assess current state and further management. - Foot Complications: Referral to a new manager transfusion after previous surgeon's incapacity due to relocation and patient dissatisfaction with healing process. Ensure transfer of surgical records for accurate treatment planning. - Depression with anxiety: Continue current medications and follow-up with psychiatry. - Medication Management: Continue current medications; adjust pain management strategy for ineffective NSAIDs, considering possible opioids under medical supervision following a thorough risk-benefit discussion. Patient was informed and verbally consented to the use of an ambient scribe for clinic note documentation during this visit. During the visit, I emphasized the importance of addressing the left hip arthritis through evaluation by an labeling specialist. Given the patient's reported ineffectiveness of ibuprofen and partial relief with morphine, I discussed the potential for alternative pain management strategies, including considering surgery if advised by the specialist. For her foot surgery complications, I recommended coordination with a new manager transfusion and securing all previous surgical records to aid in further treatment. We talked about the implications of avoiding alcohol due to ongoing pancreatic concerns and encouraged maintaining this abstinence. Regarding her marijuana use, ongoing dialogue regarding potential impacts on her health was advised. Follow-up will focus on monitoring and adjusting care plans as needed. Orders: Orders XR foot LT 2V Today L84 - Corns and callosities Lipid Panel 2 Months E78.5 - Hyperlipidemia, unspecified Comprehensive [place]. Panel Fast 2 Months M16.12 - Unilateral primary osteoarthritis, left hip Referrals Orthopedics Referral M16.12 - Unilateral primary osteoarthritis, left hip Medications: New meloxicam 15 mg PO DAILY 10 days 10 tabs 0RF Changed From cyclobenzaprine 5 mg PO TID PRN 14 tabs 0RF muscle spasm or pain To cyclobenzaprine 5 mg PO TID 30 days PRN 90 tabs 1RF muscle spasm or pain Refilled ergocalciferol (vitamin D2) (Vitamin D2) 1,250 mcg PO QWEEK 12 caps 0RF Discontinued ibuprofen Discontinued Reason: Patient Completed Course 400 mg PO TID PRN 30 tabs 0RF fever or pain Patient Instructions: - Follow up with labeling specialist to evaluate left hip arthritis. - Arrange a visit with a new manager transfusion for foot complications; ensure surgical history is transferred. - Continue medication regimen as prescribed. - Avoid alcohol completely; monitor cannabis use and discuss with healthcare providers. - Return to clinic for further assessment if symptoms persist or worsen. - Routine monitoring and follow-up visits to assess pain management strategies and improve functional status. - Depression with anxiety: Continue psychiatry follow-up.
[2024-02-16 09:55] VITALS: BP 119/80; BMI 32.3
== END 2024-02-16 10:34 | disposition home or self-care (01) ==
LOC: HO.HMCH 09:48
PROVIDERS: PCP Internal Medicine; Visit Provider Internal Medicine
DX: M16.12 Unilateral primary osteoarthritis, left hip (principal); L84 Corns and callosities; F32.0 Major depressive disorder, single episode, mild; F41.1 Generalized anxiety disorder

== ENCOUNTER → 2024-02-16 09:48 | Outpatient (BNVA) | payer OTHER, SELFPAY | PROVIDERS: PCP Internal Medicine; Visit Provider Internal Medicine | DX: M16.12 Unilateral primary osteoarthritis, left hip (principal); L84 Corns and callosities; F32.0 Major depressive disorder, single episode, mild; F41.1 Generalized anxiety disorder | CPT/HCPCS: 99212 ==

== ENCOUNTER 2024-05-13 05:47 | Emergency (ER) | payer OTHER, SELFPAY ==
--- NOTE | ~2024-05-13 | XR_ITS ---
CLINICAL HISTORY: pain 4 view left knee Comparison: 12/11/2023 Findings: Bones intact. No dislocations. Mild tricompartmental degenerative change No joint effusion. No radiopaque foreign body. IMPRESSION: Mild tricompartmental degenerative change. No fracture, malalignment or joint effusion This document has been electronically signed by: Erick Hudson MD on 05/13/2024 06:51:02
[2024-05-13 05:52] VITALS: BP 110/80; BP 98/62; PULSE 70; PULSE 92; RESP 17; TEMP 36.9; O2SAT 18; O2SAT 98; BMI 32.4
--- NOTE | 2024-05-13 07:00 | ED_ITS ---
HPI - Extremity Problem General Chief complaint: Extremity Injury, Lower Stated complaint: LT KNEE PAIN Time Seen by Provider: 05/13/24 06:58 Source: patient, EMS and old records reviewed Mode of arrival: EMS Limitations: no limitations History of Present Illness ED Provider: NACHO HPI Narrative: 54 yo female with PMH Of prolonged QT, arthritis, anxiety, bipolar here with c/o 3 months of her L knee giving out and causing pain after a trauma. She states it gives out and then she falls. She has no other injuries. She has not seen her PCP or an orthopedic for this she takes tylenol or motrin when she has the pain. MD Complaint: joint pain Onset (ago): month(s) (3) Pain Consistency: constant Location: left and knee Quality: aching Radiation: none Relieving factors: immobilization Exacerbating factors: range of motion, weight bearing and palpation Associated symptoms: denies other symptoms Related Data Previous Rx's ?Medication ?Instructions ?Recorded duloxetine 30 mg capsule,delayed 30 mg PO DAILY 15 days #15 caps 07/06/23 release duloxetine 60 mg capsule,delayed 60 mg PO QAM 15 days #15 caps 07/06/23 release oxcarbazepine 150 mg tablet 150 mg PO BID 15 days #30 tabs 07/06/23 oxcarbazepine 600 mg tablet 600 mg PO BID 15 days #30 tabs 07/06/23 prazosin 1 mg capsule 1 mg PO BEDTIME 15 days #15 caps 07/06/23 quetiapine 400 mg tablet 400 mg PO BEDTIME 15 days #15 tabs 07/06/23 benztropine 1 mg tablet 1 mg PO .QHS #30 tabs 07/15/23 quetiapine 50 mg tablet 50 mg PO BID PRN severe anxiety or 07/15/23 agitation 15 days #30 tabs lorazepam 0.5 mg tablet (Ativan) 1 mg (2 x 0.5 mg) PO DAILY PRN 09/27/23 anxiety 1 day #2 tabs folding cane with seat #1 ea 11/12/23 peg 3350-electrolytes 236 240 ml PO Q10M colonoscopy #4,000 12/01/23 gram-22.74 gram-6.74 gram-5.86 mL gram solution (Golytely) acetaminophen 500 mg tablet 1,000 mg (2 x 500 mg) PO Q6H PRN 01/12/24 (Tylenol Extra Strength) fever or pain #20 tabs morphine 15 mg immediate release 15 mg PO Q8H PRN pain #10 tabs 01/12/24 tablet clonazepam 1 mg tablet 1 mg PO BID #6 tabs 01/17/24 ergocalciferol (vitamin D2) 1,250 1,250 mcg PO QWEEK #12 caps 02/16/24 mcg (50,000 unit) capsule (Vitamin D2) meloxicam 15 mg tablet 15 mg PO DAILY 10 days #10 tabs 02/16/24 cyclobenzaprine 5 mg tablet 5 mg PO TID PRN muscle spasm or 03/20/24 pain 30 days #90 tabs diclofenac sodium 1 % topical gel 2 g topical BID #100 grams 05/13/24 (Arthritis Pain (diclofenac)) Allergies Allergy/AdvReac Type Severity Reaction Status Date / Time fentanyl [FENTANYL] Allergy Intermediate VOMITING Verified 05/13/24 05:56 Penicillins [PENICILLINS] Allergy Intermediate ANAPHYLAXIS Verified 05/13/24 05:56 sertraline [From ZOLOFT] Allergy Intermediate ANXIETY Verified 05/13/24 05:56 zolpidem [From AMBIEN] Allergy Intermediate suicidal Verified 05/13/24 05:56 attempt with zolpidem Review of Systems Review of Systems: Constitutional : No Fever, No Chills ENT/Mouth : No Ear Pain, No Hoarseness, No sore throat Eyes: No Eye Pain, No Swelling, No Redness, No Foreign Body Cardiovascular : No Chest Pain, No SOB Respiratory : No Cough, No Dyspnea Gastrointestinal : No Nausea, No Vomiting, No Diarrhea, No abdominal Pain Genitourinary : No Dysuria, No Hematuria Musculoskeletal : positive joint pain, No Myalgias, No Joint Swelling Skin : No Skin lacerations, No rash Neuro : No Weakness, No Numbness All other systems reviewed and are negative PMFSH Past Medical History Medical History MDD (major depressive disorder), recurrent episode, moderate Physical exam Frequent falls Shoulder pain, bilateral Lumbar pain Chest pain Screening for cervical cancer Osteoarthritis of right knee Left foot pain Urinary incontinence Right foot pain Skin lesion Right knee pain Mid back pain on right side Right sided abdominal pain Cervical radiculopathy Osteoarthritis of acromioclavicular joint Rotator cuff tendonitis Chronic right shoulder pain Right shoulder pain Right hip pain Cervical strain Left foot pain Right foot pain Polyarthralgia Carpal tunnel syndrome Bipolar disorder Depression Anxiety Hypovitaminosis D Constipation by delayed colonic transit Surgical History Hx of colonoscopy History of surgery History of right hip replacement History of hemorrhoidectomy History of bunionectomy History of cholecystectomy History of appendectomy Family History Family History Father Depression Prostate cancer Chronic mental illness Mother Diabetes Cancer Breast cancer Maternal Aunt Breast cancer Family/Other Chronic mental illness Other Mental health disorder Social History Social History Household Members: Other Household Members Other:: My dog Housing: House Alcohol intake: never Patient Tobacco Use Status: Never used Tobacco Tobacco use type: Cigarette e-Cigarette/Vaping Use: Never Used Second Hand Smoke Exposure: No Substance Use Type: Marijuana Advance Directives: Yes Advance Directives on File: Yes Advance Directives Date on File: 01/17/24 Do you have a plan to hurt others: No Plan service: No Current occupational status: disabled 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 Oriented X3. No acute distress. Eyes: Pupils equal, round and reactive to light. ENT: Pharynx normal. Neck: Normal inspection. Neck supple. CVS: Normal heart rate and rhythm. Pulses normal. Respiratory: No respiratory distress. Breath sounds normal. Abdomen: Soft and nontender. Skin: Skin warm and dry. Normal skin color. Normal skin turgor. Extremities: No lower extremity edema. L knee ttp patella distal NV intact, no rash, no effusion Neuro: Oriented X 3. No motor deficit. No sensory deficit. CN2-12 intact Medical Decision Making Medical Decision Making MDM Narrative: 54 yo female with PMH Of prolonged QT, arthritis, anxiety, bipolar here with c/o L knee pain on exam no redness, no effusion she has pain with ROM testing her ACL/LCL/MCL appears intact, at this time xray mónica wrap pain gel. no signs of swelling to suggest DVT and no signs of infection on exam Differential Diagnosis Differential Diagnoses: The differential diagnosis associated with the presentation includes trauma, arthralgia, effusion, arthritis, internal injury Independent Interpretation I performed an independent interpretation of an: Plain X-Ray (no fracture) Radiology Impression Discussion of test interpretation with radiology: I have reviewed the radiologist's reading. External Record Review External record reviewed: Outpatient record Prescription Management I considered prescription management with: Pain Medication and Other Discharge Plan Discharge Clinical Impression: Arthralgia of knee, left Patient Disposition: Home, Self-Care Instructions: Knee Pain (ED), Arthralgia (ED) Additional Instructions: xray shows arthritis no broken bones you need to see your doctor or an orthopedic doctor to look for other injuries such as ligament or cartilage damage return for any worsening symptoms or concerns wear mónica wrap as needed for comfort Prescriptions: New diclofenac sodium [Arthritis Pain (diclofenac)] 1 % gel 2 g topical BID Qty: 100 0RF Rx Instructions: apply to joint as needed for pain No Action cyclobenzaprine 5 mg tablet 5 mg PO TID PRN (Reason: muscle spasm or pain) 30 Days Qty: 90 1RF oxcarbazepine 150 mg tablet 150 mg PO BID 15 Days Qty: 30 1RF prazosin 1 mg capsule 1 mg PO BEDTIME 15 Days Qty: 15 1RF oxcarbazepine 600 mg tablet 600 mg PO BID 15 Days Qty: 30 1RF duloxetine 60 mg capsule,delayed release(DR/EC) 60 mg PO QAM 15 Days Qty: 15 1RF quetiapine 400 mg tablet 400 mg PO BEDTIME 15 Days Qty: 15 0RF duloxetine 30 mg capsule,delayed release(DR/EC) 30 mg PO DAILY 15 Days Qty: 15 1RF benztropine 1 mg tablet 1 mg PO .QHS Qty: 30 0RF quetiapine 50 mg tablet 50 mg PO BID PRN (Reason: severe anxiety or agitation) 15 Days Qty: 30 1RF clonazepam 1 mg tablet 1 mg PO BID Qty: 6 0RF morphine 15 mg tablet 15 mg PO Q8H PRN (Reason: pain) Qty: 10 0RF Rx Instructions: Partial Fill upon patient request. acetaminophen [Tylenol Extra Strength] 500 mg tablet 1,000 mg PO Q6H PRN (Reason: fever or pain) Qty: 20 0RF lorazepam [Ativan] 0.5 mg tablet 1 mg PO DAILY PRN (Reason: anxiety) 1 Days Qty: 2 0RF Rx Instructions: Take 45 minutes before MRI. (DME) folding cane with seat See Rx Instructions .Route .MEDSUPPLY Qty: 1 0RF Rx Instructions: As directed meloxicam 15 mg tablet 15 mg PO DAILY 10 Days Qty: 10 0RF ergocalciferol (vitamin D2) [Vitamin D2] 1,250 mcg (50,000 unit) capsule 1,250 mcg PO QWEEK Qty: 12 0RF peg 3350-electrolytes [Golytely] 236-22.74-6.74 -5.86 gram recon soln 240 ml PO Q10M Qty: 4000 0RF Rx Instructions: as per split prep instructions, until fecal effluent is clear Referrals: [facility] Orthopedic Surgeons [Provider Group] Interventions: ED Discharge Assessment Last Done: 05/13/24 07:47 Discharge Date/Time: 05/13/24 07:48 Print Language: Upper Sorbian
[2024-05-13 07:47] VITALS: BP 97/59; PULSE 79; RESP 20; TEMP 36.2; O2SAT 97
== END 2024-05-13 07:48 | disposition home or self-care (01) ==
PROVIDERS: Emergency Provider Emergency Medicine; PCP Internal Medicine
DX: M25.562 Pain in left knee (principal)
CPT/HCPCS: 73562; 99282; 99283

== ENCOUNTER → 2024-05-13 06:20 | Outpatient (BNV) | payer OTHER, SELFPAY | PROVIDERS: Emergency Provider Emergency Medicine; PCP Internal Medicine; Visit Provider Radiology Vascular & Interventional Radiology | DX: M25.562 Pain in left knee (principal) | CPT/HCPCS: 73562 ==

== ENCOUNTER 2024-06-21 09:13 | Outpatient (REF) | payer OTHER, SELFPAY ==
[2024-06-21 09:37] LABS: MANUAL DIFF FLAG NO
--- OUTSIDE RECORDS SUMMARY | 2024-06-21 09:53 | XMS_ITS | Clinical Summary ---
Author Organization [address] Address [address] [place] [phone] Phone Care Team Providers Care Engagement Executive Name Role Phone Valarie Akbar MD Primary Care Provider [phone] Allergies Active Allergy Reactions Criticality Noted Date Comments Fentanyl 04/18/2024 Penicillins 04/18/2024 Encounters Date Type Department Care Team Description 04/18/2024 10:30 AM EST Consult Orthopedic Surgery [facility] [address] [phone] Mateo Weathers DPM Sesamoiditis of left foot (Primary Dx); Corns and callosities; Dermatophytosis of nail; Dermatofibroma of left lower leg; Acquired hallux valgus of right foot; Acquired hammer toe of right foot; Hammer toe of left foot from Last 3 Months Social History Tobacco Use Types Packs/Day Years Used Date Smoking Tobacco: Never Assessed Comments Unknown Sex and Gender Information Value Date Recorded Sex Assigned at Not on file Legal Sex Female 7:05 AM EST Gender Identity Not on file Sexual Orientation Not on file Last Filed Vital Signs Vital Sign Reading Time Taken Comments Blood Pressure - - Pulse - - Temperature - - Respiratory Rate - - Oxygen Saturation - - Inhaled Oxygen Concentration - - Weight 86.2 kg (190 lb) 04/18/2024 10:47 AM EST Height 165.1 cm (5' 5 ) 04/18/2024 10:47 AM EST Body Mass Index 31.62 04/18/2024 10:47 AM EST Plan of Treatment Upcoming Encounters Date Type Department Care Team ([facility] st Contact Info) Description 06/28/2024 2:15 PM EDT Office Visit Orthopedic [facility] [address] [phone] Mateo Weathers DPM [address] [id number] Health Maintenance Due Date Last Done Comments Breast Cancer Screening 1970 Hepatitis B Vaccines (1 of 3 - 19+ 3-dose series) 01/13/1987 Pneumococcal Vaccine: 50+ Years (1 of 2 - PCV) 01/13/1987 Pneumococcal Vaccine: Pediatrics (0 to 5 Years) and At-Risk Patients (6 to 64 Years) (1 of 2 - PCV) 01/13/1987 Zoster Vaccines (1 of 2) 01/13/1987 Cervical Cancer Screening: Pap Smear 01/13/1989 COVID-19 Vaccine ( season) 2023 12/29/2022, 03/25/2022, 03/04/2021, Additional history exists Colorectal Cancer Screening: Colonoscopy 01/18/2024 Depression Screening 01/18/2024 HIV Screening 01/18/2024 Hepatitis C Screening 01/18/2024 Social Influencers of Health Screening 01/18/2024 Influenza Vaccine (Season Ended) 2024 02/27/2021, 04/02/2020, 02/21/2019, Additional history exists DTaP,Tdap,and Td Vaccines (3 - Td or Tdap) 07/29/2028 07/29/2018, 07/06/2017 HIB Vaccines Aged Out No longer eligi ble based on patient's age to complete this topic HPV Vaccines Aged Out No longer eligi ble based on patient's age to complete this topic Hepatitis A Vaccines Aged Out No long er eligible based on patient's age to complete this topic IPV Vaccines Aged Out No longer eligi ble based on patient's age to complete this topic MMR Vaccines Aged Out No longer eligi ble based on patient's age to complete this topic Meningococcal ACWY Vaccine Aged Out N o longer eligible based on patient's age to complete this topic Meningococcal B Vaccine Aged Out No l onger eligible based on patient's age to complete this topic RSV Immunization Patients Under 20 months Aged Out No longer eligible based on patient's age to complete this topic Varicella Vaccines Aged Out No longer eligible based on patient's age to complete this topic Insurance [facility] Member Subscriber Plan / Payer (Ef fective 2016-Present) Name:Cathy Herron Relation to Subscriber:Self Name:Cathy Herron Payer ID:[id number] Group ID:[id number] Type:Not on file Address: [facility] [address] [id number] Care Teams Engagement Executive Relationship Specialty Start Date End Date Valarie Akbar MD [address] [place] [address] , [address] Physician Associ D/B/A: [facility] JAQUELINE Bhatti PCP - General Internal Medicine 02/18/24
--- OUTSIDE RECORDS SUMMARY | 2024-06-21 09:53 | XMS_ITS | Clinical Summary ---
Author Organization [employer] [facility] Address [address] [place] [address] [address] [place] [address] Care Team Providers Care Calibration Laboratory Technician Name Role Phone Unavailable Primary Care Provider Unavailabl e Immunizations Name Administration Dates Next Due Moderna Covid-19 Vaccine 6+ Bivalent 03/25/2022 Pfizer Covid-19 Vaccine 12+ 12/29/2022 Social History Tobacco Use Types Packs/Day Years Used Date Smoking Tobacco: Never Assessed Comments Unknown Sex and Gender Information Value Date Recorded Sex Assigned at Female 01/12/2022 10:16 AM EDT Legal Sex Female 10:16 AM EDT Gender Identity Female 01/12/2022 10:16 AM EDT Sexual Orientation Don't know 01/12/2022 10 :16 AM EDT Plan of Treatment Health Maintenance Due Date Last Done Comments CT Colonography 1968 Colonoscopy 1968 Colorectal Cancer Screening 1968 Depression Screening 1968 FIT DNA/Cologuard 1968 FIT 1968 FOBT 1968 HIV Screening 1968 SDOH Screening 1968 Sigmoidoscopy 1968 Alcohol/Substance Use Screening 1980 Tobacco Screening 1980 Hepatitis C Screening 01/13/1986 Hepatitis B Vaccines (1 of 3 - 19+ 3-dose series) 01/13/1987 Pap Smear 01/13/1989 Cervical Cancer Screening 01/13/1998 HPV/Cotest 01/13/1998 Mammogram 2008 Pneumococcal Vaccine: 50+ Years (1 of 1 - PCV) 01/13/2018 Zoster Vaccines (1 of 2) 01/13/2018 COVID-19 Vaccine ( season) 2023 12/29/2022, 03/25/2022, 03/04/2021, Additional history exists Influenza Vaccine (#1) 2023 , 04/02/2020, 02/21/2019, Additional history exists DTaP/Tdap/Td Vaccines (2 - Td or Tdap) 07/29/2028 07/29/2018, 07/06/2017 RSV Patients and Patients Aged 60 years or older (1 - 1-dose 75+ series) 01/13/2043 HIB Vaccines Aged Out No longer eligi [...] patient's age to complete this topic Meningococcal Vaccine Aged Out No heidi christy eligible based on patient's age to complete this topic RSV under 20 months Aged Out No longe r eligible based on patient's age to complete this topic Rotavirus Vaccines Aged Out No longer eligible based on patient's age to complete this topic Insurance [facility] ADV
--- OUTSIDE RECORDS SUMMARY | 2024-06-21 09:53 | XMS_ITS | Encounter Summary ---
Author Organization [facility] Address [address] [place] [address] Care Team Providers Care Manager Scheduling Name Role Phone Valarie Akbar MD Primary Care Provider [phone] Encounter Details Date Type Department Care Team (Late st Contact Info) Description 01/18/2024 Lab Requisition [facility] - Main Lab [address] [place] [address] Gary Kam MD [address] [place] [address] [address] [place], [address] Bipolar disorder, unspecified (CMS/HCC) Social History Tobacco Use Types Packs/Day Years Used Date Smoking Tobacco: Never Assessed Comments Unknown Sex and Gender Information Value Date Recorded Sex Assigned at Not on file Legal Sex Female 7:05 AM EST Gender Identity Not on file Sexual Orientation Not on file documented as of this encounter Plan of Treatment Upcoming Encounters Date Type Department Care Team (Late st Contact Info) Description 06/28/2024 2:15 PM EDT Office Visit Orthopedic Surgery - [place] [address] [address] Mateo Weathers, DPM [address] [address] documented as of this encounter Procedures Procedure Name Priority Date/Time Associated Diagnosis Comments TRAVEL PHLEBOTOMY FEE Routine 01/18/2024 6:29 AM EST Bipolar disorder, unspecified (CMS/HCC) CBC WITH AUTO DIFFERENTIAL Routine 01/18/2024 6:29 AM EST Bipolar disorder, unspecified (CMS/HCC) CBC AND DIFFERENTIAL Routine 01/18/2024 6:29 AM EST Bipolar disorder, unspecified (CMS/HCC) HEMOGLOBIN A1C Routine 01/18/2024 6:29 AM EST Bipolar disorder, unspecified (CMS/HCC) COMPREHENSIVE METABOLIC PANEL Routine 01/18/2024 6:29 AM EST Bipolar disorder, unspecified (CMS/HCC) documented in this encounter Results * Hemoglobin A1c (01/18/2024 6:29 AM EST) Hemoglobin A1C 5.1 <6.5 % LAB CHEMISTRY METHOD 01/18/2024 8:31 PM EST [facility] Mean Bld Glu Estim. 100 mg/dL LAB CHEMISTRY METHOD 01/18/2024 8:[address] [facility] Blood Venous blood specimen / Unknown 01/18/2024 6:29 AM EST 01/18/2024 1:32 PM EST us Gary Kam MD LAB BLOOD ORDERABLES Final Resul t [facility] [address] [place] [address], * CBC auto differential (01/18/2024 6:29 AM EST) WBC 5.4 4.8 - 10.8 K/mcL LAB HEMETOLOGY METHOD 01/18/2024 1:33 PM EST [facility] RBC 4.80 3.80 - 4.80 M/mcL LAB HEMETOLOGY METHOD 01/18/2024 1:33 PM EST [facility] Hemoglobin 14.9 11.5 - 16.0 g/dL LAB HEMETOLOGY METHOD 01/18/2024 1:[address] [facility] Hematocrit 45.7 35.0 - 47.0 % LAB HEMETOLOGY METHOD 01/18/2024 1:[address] [facility] MCV 95.0 79.0 - 98.0 FL LAB HEMETOLOGY METHOD 01/18/2024 1:[address] [facility] MCH 31.0 27.0 - 32.0 pcg LAB HEMETOLOGY METHOD 01/18/2024 1:[address] [facility] MCHC 32.6 32.0 - 37.0 g/dL LAB HEMETOLOGY METHOD 01/18/2024 1:[address] [facility] RDW 13.2 11.0 - 15.0 % LAB HEMETOLOGY METHOD 01/18/2024 1:[address] [facility] Platelets 307 130 - 400 K/mcL LAB HEMETOLOGY METHOD 01/18/2024 1:[address] [facility] MPV 9.2 7.0 - 11.0 FL LAB HEMETOLOGY METHOD 01/18/2024 1:[address] [facility] NRBC 0.0 <1.0 % LAB HEMETOLOGY METHOD 01/18/2024 1:[address] [facility] NRBC Absolute 0.00 <0.10 K/mcL LAB HEMETOLOGY METHOD 01/18/2024 1:[address] [facility] Neutrophils Relative 56.6 % LAB HEMETOLOGY METHOD 01/18/2024 1:[address] [facility] Lymphocytes Relative 31.6 % LAB HEMETOLOGY METHOD 01/18/2024 1:[address] [facility] Monocytes Relative 4.8 % LAB HEMETOLOGY METHOD 01/18/2024 1:[address] [facility] Eosinophils Relative 5.9 % LAB HEMETOLOGY METHOD 01/18/2024 1:[address] [facility] Basophils Relative 0.7 % LAB HEMETOLOGY METHOD 01/18/2024 1:[address] [facility] Immature Granulocytes Relative 0.4 % LAB HEMETOLOGY METHOD 01/18/2024 1:33 PM EST [facility] Neutrophils Absolute 3.04 1.50 - 7.00 K/mcL LAB HEMETOLOGY METHOD 01/18/2024 1:[address] [facility] Lymphocytes Absolute 1.70 1.00 - 5.00 K/mcL LAB HEMETOLOGY METHOD 01/18/2024 1:33 PM EST [facility] Monocytes Absolute 0.26 0.20 - 1.00 K/mcL LAB HEMETOLOGY METHOD 01/18/2024 1:[address] [facility] Eosinophils Absolute 0.32 0.00 - 0.50 K/mcL LAB HEMETOLOGY METHOD 01/18/2024 1:[address] [facility] Basophils Absolute 0.04 0.00 - 0.20 K/mcL LAB HEMETOLOGY METHOD 01/18/2024 1:33 PM EST [facility] Immature Granulocytes Absolute 0.02 0.00 - 0.03 K/mcL LAB HEMETOLOGY METHOD 01/18/2024 1:33 PM EST [facility] Blood Venous blood specimen / Unknown Venipuncture / Unknown 01/18/2024 6:29 AM EST 01/18/2024 12:24 PM EST us Gary Kam MD LAB BLOOD ORDERABLES Final Resul t [facility] [address] [place] [address], * Travel phlebotomy fee (01/18/2024 6:29 AM EST) [facility] TRAVEL PHLEBOTOMY FEE Completed 01/18/2024 1:02 PM EST [facility] Blood Venous blood specimen / Unknown Venipuncture / Unknown 01/18/2024 6:29 AM EST 01/18/2024 12:24 PM EST us Gary Kam MD LAB BLOOD ORDERABLES Final Resul t [facility] [address] [place] [address], [place] [phone] * (ABNORMAL) Comprehensive metabolic panel (01/18/2024 6:29 AM EST) Sodium 140 133 - 145 mmol/L LAB CHEMISTRY METHOD 01/18/2024 4:18 PM EST [facility] Potassium 5.3 3.5 - 5.5 mmol/L LAB CHEMISTRY METHOD 01/18/2024 4:[address] [facility] Chloride 111(H) 96 - 110 mmol/L LAB CHEMISTRY METHOD 01/18/2024 4:[address] [facility] CO2 24 21 - 32 mmol/L LAB CHEMISTRY METHOD 01/18/2024 4:[address] [facility] Anion Gap 5 3 - 11 LAB CHEMISTRY METHOD 01/18/2024 4:[address] [facility] Glucose 69(L) 70 - 100 mg/dL LAB CHEMISTRY METHOD 01/18/2024 4:[address] [facility] BUN 11 5 - 25 mg/dL LAB CHEMISTRY METHOD 01/18/2024 4:[address] [facility] Creatinine 0.82 0.50 - 1.10 mg/dL LAB CHEMISTRY METHOD 01/18/2024 4:[address] [facility] eGFR 84 >=60 mL/min/1. 73m2 LAB CHEMISTRY METHOD 01/18/2024 4:[address] [facility] Comment:Calculation based on the??Chronic Kidney Disease Epidemiology Collaboration (CKD-EPI) equation refit??without adjustment for race. BUN/Creatinine Ratio 13.4 LAB CHEMISTRY METHOD 01/18/2024 4:[address] [facility] Calcium 10.6(H) 8.5 - 10.5 mg/dL LAB CHEMISTRY METHOD 01/18/2024 4:[address] [facility] AST (SGOT) 36 10 - 42 unit/L LAB CHEMISTRY METHOD 01/18/2024 4:[address] [facility] ALT (SGPT) 34 10 - 60 unit/L LAB CHEMISTRY METHOD 01/18/2024 4:[address] [facility] Alkaline Phosphatase 167(H) 42 - 121 unit/L LAB CHEMISTRY METHOD 01/18/2024 4:[address] [facility] Total Protein 9.0(H) 6.0 - 8.0 g/dL LAB CHEMISTRY METHOD 01/18/2024 4:[address] [facility] Albumin 4.7 3.2 - 5.0 g/dL LAB CHEMISTRY METHOD 01/18/2024 4:[address] [facility] Total Bilirubin 0.6 0.0 - 1.4 mg/dL LAB CHEMISTRY METHOD 01/18/2024 4:[address] [facility] Blood Venous blood specimen / Unknown Venipuncture / Unknown 01/18/2024 6:29 AM EST 01/18/2024 12:24 PM EST us Gary Kam MD LAB BLOOD ORDERABLES Final Resul t [facility] [address] [place] [address], documented in this encounter Visit Diagnoses Diagnosis Bipolar disorder, unspecified (CMS/[facility]) Bipolar disorder, unspecified documented in this encounter Care Teams Manager Scheduling Relationship Specialty Start Date End Date Valarie Akbar MD [facility] [address] [facility]ician [facility] D[facility]A: [facility] [place] PCP - General Internal Medicine 02/18/24 documented as of this encounter
[2024-06-21 10:04] LABS: Amphetamine Screen Urine Not Detected (Not Detect); Barbiturates, Urine Not Detected (Not Detect); Benzodiazepines Screen Urine Not Detected (Not Detect); Buprenorphine Scr Not Detected (Not Detect); Cannabinoid Screen Urine POSITIVE (Not Detect); Cocaine Screen Urine Not Detected (Not Detect); Fentanyl, urine Not Detected (Not Detect); Methadone Screen, Urine Not Detected (Not Detect); Opiate Screen Urine Not Detected (Not Detect); Oxycodone Screen Urine Not Detected (Not Detect); Phencyclidine Screen Urine Not Detected (Not Detect)
[2024-06-21 10:29] LABS: Basophils Absolute Auto 0.1 X10*3/uL (0.0-0.2); Basophils Percent Auto 1.3 % (0-2); Eosinophils Absolute Auto 0.5 X10*3/uL (0.0-0.4); Eosinophils Percent Auto 8.5 % (0-4); Hemoglobin 13.7 g/dl (12.0-16.0); Imm Gran Abs Auto 0.01 X10*3/uL (0.00-0.03); Imm Gran Pct Auto 0.2 % (0.0-0.4); Lymphocytes Absolute Auto 2.2 X10*3/uL (1.2-4.9); Lymphocytes Percent Auto 34.1 % (20-40); Mean Corpuscular HGB Conc 32.6 g/dl (31.0-35.0); Mean Corpuscular Hemoglobin 30.6 pg (27.0-33.0); Mean Corpuscular Volume 93.8 fL (80.0-98.0); Mean Platelet Volume 8.9 fL (9.4-12.3); Monocytes Absolute Auto 0.4 X10*3/uL (0.1-1.2); Monocytes Percent Auto 6.3 % (2-11); Neutrophils Absolute Auto 3.2 x10*3/uL (2.0-8.3); Neutrophils Percent Auto 49.6 % (45-73); Platelet Count 237 X10*3/uL (160-400); Red Blood Count 4.48 X10*6/uL (4.20-5.50); Red Cell Distribution Width 13.9 % (11.0-16.0); White Blood Count 6.3 X10*3/uL (4.8-10.8)
[2024-06-21 10:51] LABS: Estimated Average Glucose 94 mg/dL; Hemoglobin A1C 111.9497 umol/L; Hemoglobin A1c % 4.9 % (<6.0)
[2024-06-21 11:31] LABS: Alanine Aminotransferase 21 U/L (0-31); Albumin Level 4.5 g/dL (3.5-5.0); Alkaline Phosphatase 138 U/L (39-117); Anion Gap 11 (12-20); Aspartate Amino Transferase 27 U/L (5-31); Bilirubin Total 0.4 mg/dL (0.0-1.0); Blood Urea Nitrogen 12 mg/dL (9-16); Calcium 9.2 mg/dL (8.4-10.2); Carbon Dioxide 23 mmol/L (22-29); Chloride 109 mmol/L (96-108); Cholesterol 245 mg/dL (<200); Estimated Glomerular Filt Rate > 60; Glucose Random 103 mg/dL (60-115); HDL Cholesterol 52 mg/dL (>40); LDL Cholesterol Calculated 163 mg/dL (<100); Potassium 4.4 mmol/L (3.3-5.1); Sodium 139 mmol/L (135-145); Total Protein 7.9 g/dL (6.5-8.0); Triglycerides 153 mg/dL (<150)
== END 2024-06-21 09:14 | disposition home or self-care (01) ==
LOC: HO.LAB 09:13
PROVIDERS: PCP Internal Medicine; Visit Provider Nurse Practitioner Psychiatric/Mental Health
DX: Z79.899 Other long term (current) drug therapy (principal)
CPT/HCPCS: 80053; 80061; 80307; 83036; 84443; 85025

== ENCOUNTER 2024-07-20 10:48 | Outpatient (AMB) | payer OTHER, SELFPAY ==
[2024-07-20 10:51] VITALS: BMI 32.3
--- NOTE | 2024-07-20 10:51 | A.OFFVIS_ITS ---
Vital Signs 07/20/24 10:51 Height 5 ft 5 in Weight 194 lb BMI 32.3 Intake Visit Reasons: New Problem - LT Knee Pain Intake Note: Cathy is a 54 year old female who presents today for a new problem visit with complaints of left knee pain. She was seen at [facility] in May with complaints of left knee pain s/p knee giving out. Patient reports that the left knee pain has been worsening and she is also having pain the left hip. She explains that her quality of life has diminished as she is unable to go up and down stairs and complete daily life activities. She is interested in a cortisone injection She had surgery to MIGUEL of the left foot, she had it done about 2 -3 weeks ago Allergies fentanyl [FENTANYL] Allergy (Intermediate, Verified 07/20/24 10:51) VOMITING Penicillins [PENICILLINS] Allergy (Intermediate, Verified 07/20/24 10:51) ANAPHYLAXIS sertraline [From ZOLOFT] Allergy (Intermediate, Verified 07/20/24 10:51) ANXIETY zolpidem [From AMBIEN] Allergy (Intermediate, Verified 07/20/24 10:51) suicidal attempt with zolpidem HPI HPI New Problem - LT Knee Pain: Details: Cathy is a 54 year old female who presents today for a new problem visit with complaints of left knee pain. She was seen at [facility] in May with complaints of left knee pain s/p knee giving out. Patient reports that the left knee pain has been worsening and she is also having pain the left hip. She explains that her quality of life has diminished as she is unable to go up and down stairs and complete daily life activities. She is interested in a cortisone injection. I discussed hip replacement with her in the past but she has been having such a d ifficult time ambulating because of her foot that we deferred. Now she returns with tightness in her left groin and pain and inability to ambulate comfortably. She had surgery to MIGUEL of the left foot, she had it done about 2 -3 weeks ago [facility] Medical History MDD (major depressive disorder), recurrent episode, moderate Physical exam Frequent falls Shoulder pain, bilateral Lumbar pain Chest pain Screening for cervical cancer Osteoarthritis of right knee Left foot pain Urinary incontinence Right foot pain Skin lesion Right knee pain Mid back pain on right side Right sided abdominal pain Cervical radiculopathy Osteoarthritis of acromioclavicular joint Rotator cuff tendonitis Chronic right shoulder pain Right shoulder pain Right hip pain Cervical strain Left foot pain Right foot pain Polyarthralgia Carpal tunnel syndrome Bipolar disorder Depression Anxiety Hypovitaminosis D Constipation by delayed colonic transit Surgical History Hx of colonoscopy History of surgery History of right hip replacement History of hemorrhoidectomy History of bunionectomy History of cholecystectomy History of appendectomy Family History Father Depression Prostate cancer Chronic mental illness Mother Diabetes Cancer Breast cancer Maternal Aunt Breast cancer Family/Other Chronic mental illness Other Mental health disorder Social History Household Members: Other Household Members Other:: My dog Housing: House Alcohol intake: never Patient Tobacco Use Status: Never used Tobacco Tobacco use type: Cigarette e-Cigarette/Vaping Use: Never Used Second Hand Smoke Exposure: No Substance Use Type: Marijuana Advance Directives Date on File: 01/17/24 service: No Current occupational status: disabled 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 Her internal rotation is minimal. She also has left knee pain although this is less easily reproducible. Office Procedures Joint Inj/Aspir; Non-Pain Clin Joint Injection/Drain Details: Injected 1 mL of Decadron and 3 mL 1% lidocaine and 3 mL of 0.25% Marcaine. Site was prepped using aseptic technique. Patient tolerated the procedure well. Shoulders, Hips, Knees, Knee Large Joint Injection [id number]: Left Knee Coding Procedure code (CPT) selection complete Results Reviewed Results Reviewed: I personally reviewed relevant radiographs. Right KRISTIN in expected post operative position with no hardware complications or evidence of loosening Left hip with severe arthritis. There is femoral head over coverage resulting in pincer impingement. Assessment & Plan Assessment & Plan (1) Osteoarthritis of left hip: Code(s): M16.12 - Unilateral primary osteoarthritis, left hip Category: Medical Plan: This is a 54-year-old woman with severe osteoarthritis of the left hip. She had a successful right hip replacement in 2019 and I recommend left hip replacement. I discussed this with her. I discussed the risks, benefits and alternatives of surgery including, but not limited to, the risk of fracture, infection, dislocation, leg length discrepancy, nerve injury as well as medical complications associated with surgery. She understands these risks and is amenable to surgery. (2) Arthralgia of knee, left: Code(s): M25.562 - Pain in left knee Category: Medical Plan: Ira also has left knee pain which I suspect is secondary to hip arthritis. I injected the left knee however in hope that it will give her some mild relief. Coding Level of Care Code Est Pt Level 4 (07779) Diagnoses Osteoarthritis of left hip M16.12 Arthralgia of knee, left M25.562 CPT Codes Shoulders, Hips, Knees, - Knee Large Joint Injection : Left Knee ([id number])
--- OUTSIDE RECORDS SUMMARY | 2024-07-20 12:16 | XMS_ITS | Data Portability ---
Author Organization [facility], Main Office Address [address], [address] [place] [address] Care Team Providers Care Pipelines Manager Name Role Phone KARL HARPER - 2ND FLOOR OTHER AMELIE LEDESMA Primary Care Provider [phone] Assessment No assessment recorded. Plan of Treatment Reminders Order Date Submit Date Provider Last Modified By Organization Details Last Modified Time Details Appointments None record ed. Lab None record ed. Referral None record ed. Procedures None record ed. Surgeries None record ed. Imaging None record ed. Medication Orders None record ed. Patient TargetsNo targets recorded. Patient InstructionsNo instructions recorded. Reason for Referral None Reported. Problems Name Problem SNOMED Code Status Onset Date Resolution Date Notes Provider Name and Address Organization Details Recorded Time Pain in left lower limb 539294370 Active 2023 OLESYA MARTINEZ NP [address], [address], [place], [address], [facility] 4 12:26:33 Asthenia 87365271 Active 2023 OLESYA MARTINEZ NP [address], [address], [place], [address], [facility] 4 12:26:40 Recurrent falls 961230032 Active 2023 OLESYA MARTINEZ NP [address], [address], [place], [address], [facility] 4 12:26:58 Major depressive disorder 678198111 Active 2023 OLESYA MARTINEZ NP [address], [address], [place], [address], [facility] 4 12:27:07 Anxiety 29219165 Active 2023 OLESYA MARTINEZ NP [address], [address], [place], [address], [facility] [employer] [facility] 4 12:27:14 Bipolar disorder 84256668 Active 2023 OLESYA MARTINEZ NP [address], [address], [place], [address], [facility] [employer] [facility] 4 12:27:21 Fibromyalgia 672716486 Active 2023 OLESYA MARTINEZ NP [address], [address], [place], [address], [facility] [employer] [facility] 4 12:27:33 Posttraumatic stress disorder 69602148 Active 2023 OLESYA MARTINEZ NP [address], [address], [place], [address], [facility] [employer] [facility] 4 12:27:39 Urinary incontinence 574036600 Active 2023 OLESYA MARTINEZ NP [address], [address], [place], [address], [facility] [employer] [facility] 4 12:29:15 Osteoarthritis 710682595 Active 2023 OLESYA MARTINEZ NP [address], [address], [place], [address], [facility] [employer] [facility] 4 12:29:20 Carpal tunnel syndrome 46837759 Active 2023 OLESYA MARTINEZ NP [address], [address], [place], [address], [facility] [employer] [facility] 4 12:29:48 Vitamin D deficiency 93646322 Active 2023 OLESYA MARTINEZ NP [address], [address], [place], [address], [facility] [employer] [facility] 4 12:29:58 Constipation 90164393 Active 2023 OLESYA MARTINEZ NP [address], [address], [place], [address], [employer] 4 12:30:10 Problem Notes None recorded. Medical Equipment None Reported. Allergies Allergen ID Allergen Name Allergen Category Reaction Reaction Severity Criticality Documentation Date Start Date Code Code System Note Provider Name and Address Organization Details Recorded Time 46524 fentanyl medicatio n Not available Not available Not available 01/18/2024 4337 RxNorm vomit ing OLESYA MARTINEZ NP [address] [facility], [address], [place], [address], [facility] [employer] [facility] 4 12:11:38 21404 Product containin g penicilli n (product) medicatio n Not available Not available Not available 01/18/2024 05544 8001 SNOMED anaph ylaxi s OLESYA MARTINEZ NP [address] [facility], [address], [place], [address], [facility] [employer] [facility] 4 12:12:12 [address]254 Zoloft medicatio n Not available Not available Not available 01/18/2024 41379 RxNorm anxie ty OLESYA MARTINEZ NP [address] [facility], [address], [place], [address], [employer] [facility] 4 12:12:28 55716 Ambien medicatio n Not available Not available Not available 01/18/2024 28866 5 RxNorm suici jazmyn attem pt OLESYA MARTINEZ NP [address] [facility], [address], [place], [address], [employer] [facility] 4 12:12:44 Vitals Date Recorded Heart rate Respiratory rate Body temperature Oxygen saturation Oxygen saturation in Arterial blood by Pulse oximetry Systolic blood pressure Diastolic blood pressure Provider Name and Address Organization Details Last Updated DateTime 4 82 /min 18 /min 98 [degF] 99 % 99 % 132 mm[Hg] 75 mm[Hg] OLESYA MARTINEZ NP [address] [facility], [address], [place], [address], [employer] [facility] 4 12:08:28 Social History Question Answer Notes LastModified by Organizat ion Details LastModified Time Tobacco Smoking Status Never Smoker OLESYA MARTINEZ NP [address] [facility], [address], [place], [address], [facility] [employer] [facility] 01/18/2024 12:34:28 Do You Have An Advance Directive? Yes [email or web address] Information not available 01/18/2024 What Is Your Level Of Alcohol Consumption? None [email or web address] Information not available 01/18/2024 What Is Your Code Status? Full Code [email or web address] Information not available 01/18/2024 Which Illicit Or Recreational Drugs Have You Used? Cannabis For Pain Mgmt. Information not available 01/18/2024 Where Do You Live? [address] Lives With Dog. Sister Nearby, Supportive . 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 Yes Has HCP [email or web address] Information not available 01/18/2024 What Was The Date Of Your Most Recent Tobacco Screening? 01/18/2024 [email or web address] Information not available 01/18/2024 Do You Have An Out Of Hospital DNR? Yes [email or web address] Information not available 01/18/2024 Do You Use Any Illicit Or Recreational Drugs? Yes [email or web address] Information not available 01/18/2024 Have You Used IV Drugs? No Information not available 01/18/2024 Do You Or Have You Ever Used Any Other Forms Of Tobacco Or Nicotine? No [email or web address] Information not available 01/18/2024 Sex: Unknown Functional Status None recorded. Mental Status None recorded. Family History Relationship Description Onset Age of this Age Resolved Age Notes LastModified by Organization Details LastModified Time Father Depressive disorder Not available 2023 12:32:30 Father Mental disorder Not available 2023 12:32:51 Mother Diabetes mellitus Not available 2023 12:33:28 Mother Malignant tumor of breast [email or web address] Not available 2023 12:33:40 Medical History No medical history recorded. Gynecological HistoryNo gynecological history recorded. Obstetrics History GPAL:G 0 P 0 0 0 0 Immunizations Vaccine Type Date Status Note Provider Nam e and Address Organization Details Recorded Time Tdap 07/29/2018 betsy Carvajal [facility] 01/20/2024 16:39:53 Td(adult) unspecified formulation 07/06/2017 betsy Carvajal [facility] 01/20/2024 16:40:06 SARS-COV-2 (COVID-19) vaccine, UNSPECIFIED 07/18/2020 betsy Carvajal [facility] 01/20/2024 16:40:50 SARS-COV-2 (COVID-19) vaccine, UNSPECIFIED 08/15/2020 completed Ananya Carvajal [facility] 01/20/2024 16:40:57 SARS-COV-2 (COVID-19) vaccine, UNSPECIFIED 03/04/2021 completed Ananya [facility] 01/20/2024 16:41:06 SARS-COV-2 (COVID-19) vaccine, UNSPECIFIED 03/25/2022 completed Ananya [facility] 01/20/2024 16:41:16 SARS-COV-2 (COVID-19) vaccine, UNSPECIFIED [facility] 01/20/2024 16:41:24 Past Encounters Encounter ID Performer Location Encounter Start Date Encounter Closed Date Diagnosis/Indication Diagnosis SNOMED-CT Code Diagnosis ICD10 Code Diagnosis Note [id number] OLESYA MARTINEZ NP [address] [address] 01/18/2024 12:07:38 01/19/2024 10:19:11 Pain in left lower limb 567357420 M79.605 with hx. of recurrent fallsMSIR 15 mg q 8 hr prn added in ER - continue for now. Ideally would like to stop prior to d/c home, monitor use and effect, titrate down as able.Jaylin nue:cymbal ta 60 mg q am, and 30 mg q aft. and HScycloben zaprine 5 mg tid prnAPAP 1000 mg q 6 hr prnIbuprof en 800 mg tid, and 400 mg tid prnPT OT eval and txRefer to PMR as well. Asthenia 13648962 R53.1 PT OT eval and tx.Gait instabilit y due left bunion/megan lous which in turn contribute s to L hip/LE painManage pain as aboveRefer to PMRGoal is to return home. Bipolar disorder 7226519 4 F31.9 anxiety, depression , complicate d by PTSDclonaz epam 1 mg bid (new from ER), was prn at home, will keep prn x 14 days then re-evaloxc arbazepine 750 mg bidprazosi n 1 mg q HSduloxeti ne 60 mg q am, 30 mg q aft. and hs (as per pt)seroque l 400 mg q HS, and 50 mg bid prn x 14 days then re-evalben ztropine 1 mg q HSRefer to Psych provider for med mgmt.Monit or mood and behaviors Fibromyalgia 737505994 M 79.7 Continue home meds:cyclo benzaprine 5 mg tid prnAPAP 1000 mg q 6 hr prnIbuprof en 800 mg tid, and 400 mg tid prnduloxet ine 60 mg q am, 30 mg q aft. and hsPT OT eval and tx.Refer to in house PMR Constipation 42146618 K5 9.00 Not on meds at this time, monitor need leonarda. with use of MSO4 Vitamin D deficiency 347 32615 E55.9 Vit D 13780 units q week Health Concerns Section Related Observation LastModified by Organization Detai ls LastModified Time None Recorded Concern Status LastModified by Organization Details LastModified Time None Recorded Advance Directives Directive Y: Payers Encounter Date Sequence Insurance Name Policy Number Policy Greir Covered Member ID Grier Member ID Guarantor Name 01/18/2024 1 [facility] - DOS ON OR AFTER 2022 - MEDICARE ADVANTAGE [place] (MEDICARE REPLACEMENT/ADV ANTAGE - PPO) Cathy Mary Funk [id number] Cathy Mary Funk Notes Date Note Type Note Provider Name and Address Organization Details Recorded Time 01/18/2024 text/html Cathy is seen t krista for initial intake. She is a 54 yo lady admitted to [facility] 01[facility]17/[facility] [place] [facility] [place] and [place] due to weakness and pain. She [place] [facility] with left sided pain x 1 month after slipping and falling. Seen in ED 12/10 CT imaging neg. for acute injury. She returned 01/11 with similar complaints and was discharged home with a script for morphine. She ran out of this med at home and returned to the ER due to severe pain.Primary area of pain was left groin, radiating down to ankle. Gait unsteady due to this. US checked, neg. DVT. Seen by PT, STR recommended. Labs stable. Upon exam, Cathy is standing by her bed with support of cane, able to sit on the side of the bed for exam. director radiation oncology present. She says she had a horrible night last night as her meds were unavailable, but is doing better today. Denies any complaints other than LLE pain. She notes a callous/bunion which she reports she needs surgery for before she can get left hip surgery. She says the foot problem affects her gait and aggravates her hip pain. MOLST: high fall risk PMH: frequent falls, MDD, anxiety, bipolar, polyarthralgias, fibromyalgia, PTSD, cannabis use, UI, OA, Vit D def, carpal tunnel, constipationFull code OLESYA MARTINEZ NP [address] [facility], [address], [place], [address], [facility] [employer] 01/18/2024 13:17:48 OBGyn Episode No OBEpisode recorded.
--- OUTSIDE RECORDS SUMMARY | 2024-07-20 12:16 | XMS_ITS | Encounter Summary ---
Author Organization [employer] Address [address] [place] [address] Care Team Providers Care Chief Design Drafter Name Role Phone Valarie Akbar MD Primary Care Provider [phone] Encounter Details Date Type Department Care Team (Late st Contact Info) Description 01/18/2024 Lab Requisition [facility] [address] [place] [address] Gary Kam MD [address] [place] [address] [address] [place], [address] Bipolar disorder, unspecified (CMS/HCC V24, CMS/HCC V28) Social History Tobacco Use Types Packs/Day Years [...] Care Team (Late st Contact Info) Description 08/28/2024 2:00 PM EDT Office Visit Orthopedic Surgery - [place] [address] [phone] Mateo Weathers DPM [address] [address] documented as of this encounter Procedures Procedure [...] LAB CHEMISTRY METHOD 01/18/2024 8:31 PM EST [facility] Mean Bld Glu Estim. 100 mg/dL LAB CHEMISTRY METHOD 01/18/2024 8:31 PM [facility] Blood Venous blood specimen / Unknown 01/18/2024 6:29 AM EST 01/18/2024 1:32 PM EST us Gary Kam MD LAB BLOOD ORDERABLES Final Resul t [facility] [address] [place] [address], * CBC auto differential (01/18/2024 6:29 AM EST) Pathologist [facility] WBC 5.4 4.8 - 10.8 K/mcL LAB HEMETOLOGY METHOD 01/18/2024 1:33 PM EST [facility] RBC 4.80 3.80 - 4.80 M/mcL LAB HEMETOLOGY METHOD 01/18/2024 1:33 PM EST [facility] Hemoglobin 14.9 11.5 - 16.0 g/dL LAB HEMETOLOGY METHOD 01/18/2024 1:33 PM EST [facility] Hematocrit 45.7 35.0 - 47.0 % LAB HEMETOLOGY METHOD 01/18/2024 1:33 PM [facility] MCV 95.0 79.0 - 98.0 FL LAB HEMETOLOGY METHOD 01/18/2024 1:33 PM [facility] MCH 31.0 27.0 - 32.0 pcg LAB HEMETOLOGY METHOD 01/18/2024 1:33 PM [facility] MCHC 32.6 32.0 - 37.0 g/dL LAB HEMETOLOGY METHOD 01/18/2024 1:33 PM [facility] RDW 13.2 11.0 - 15.0 % LAB HEMETOLOGY METHOD 01/18/2024 1:33 PM [facility] Platelets 307 130 - 400 K/mcL LAB HEMETOLOGY METHOD 01/18/2024 1:33 PM [facility] MPV 9.2 7.0 - 11.0 FL LAB HEMETOLOGY METHOD 01/18/2024 1:33 PM [facility] NRBC 0.0 <1.0 % LAB HEMETOLOGY METHOD 01/18/2024 1:33 PM [facility] NRBC Absolute 0.00 <0.10 K/mcL LAB HEMETOLOGY METHOD 01/18/2024 1:33 PM [facility] Neutrophils Relative 56.6 % LAB HEMETOLOGY METHOD 01/18/2024 1:33 PM [facility] Lymphocytes Relative 31.6 % LAB HEMETOLOGY METHOD 01/18/2024 1:33 PM [facility] Monocytes Relative 4.8 % LAB HEMETOLOGY METHOD 01/18/2024 1:33 PM [facility] Eosinophils Relative 5.9 % LAB HEMETOLOGY METHOD 01/18/2024 1:33 PM [facility] Basophils Relative 0.7 % LAB HEMETOLOGY METHOD 01/18/2024 1:33 PM [facility] Immature Granulocytes Relative 0.4 % LAB HEMETOLOGY METHOD 01/18/2024 1:33 PM EST [facility] Neutrophils Absolute 3.04 1.50 - 7.00 K/[facility] LAB HEMETOLOGY METHOD 01/18/2024 1:33 PM EST [facility] Lymphocytes Absolute 1.70 1.00 - 5.00 K/mcL LAB HEMETOLOGY METHOD 01/18/2024 1:33 PM EST [facility] Monocytes Absolute 0.26 0.20 - 1.00 K/[facility] LAB HEMETOLOGY METHOD 01/18/2024 1:33 PM EST [facility] Eosinophils Absolute 0.32 0.00 - 0.50 K/[facility] LAB HEMETOLOGY METHOD 01/18/2024 1:33 PM EST [facility] Basophils Absolute 0.04 0.00 - 0.20 K/mcL LAB HEMETOLOGY METHOD 01/18/2024 1:33 PM EST [facility] Immature Granulocytes Absolute 0.02 0.00 - 0.03 K/mcL LAB HEMETOLOGY METHOD 01/18/2024 1:33 PM EST [facility] Blood Venous blood specimen / Unknown Venipuncture / Unknown 01/18/2024 6:29 AM EST 01/18/2024 12:24 PM EST us Gary Kam MD LAB BLOOD ORDERABLES Final Resul t [facility] [address] [place] [address], * Travel phlebotomy fee (01/18/2024 6:29 AM EST) [facility] TRAVEL PHLEBOTOMY FEE Completed 01/18/2024 1:02 PM EST [facility] Blood Venous blood specimen / Unknown Venipuncture / Unknown 01/18/2024 6:29 AM EST 01/18/2024 12:24 PM EST us Gary Kam MD LAB BLOOD ORDERABLES Final Resul t [facility] [address] [place] [address], [place] [phone] * (ABNORMAL) Comprehensive metabolic panel (01/18/2024 6:29 AM EST) Sodium 140 133 - 145 mmol/L LAB CHEMISTRY METHOD 01/18/2024 4:18 PM [facility] Potassium 5.3 3.5 - 5.5 mmol/L LAB CHEMISTRY METHOD 01/18/2024 4:18 PM [facility] Chloride 111(H) 96 - 110 mmol/L LAB CHEMISTRY METHOD 01/18/2024 4:18 PM [facility] CO2 24 21 - 32 mmol/L LAB CHEMISTRY METHOD 01/18/2024 4:18 PM [facility] Anion Gap 5 3 - 11 LAB CHEMISTRY METHOD 01/18/2024 4:18 PM [facility] Glucose 69(L) 70 - 100 mg/dL LAB CHEMISTRY METHOD 01/18/2024 4:18 PM [facility] BUN 11 5 - 25 mg/dL LAB CHEMISTRY METHOD 01/18/2024 4:18 PM [facility] Creatinine 0.82 0.50 - 1.10 mg/dL LAB CHEMISTRY METHOD 01/18/2024 4:18 PM [facility] eGFR 84 >=60 mL/min/1. 73m2 LAB CHEMISTRY METHOD 01/18/2024 4:18 PM [facility] Comment:Calculation based on the??Chronic Kidney Disease Epidemiology Collaboration (CKD-EPI) equation refit??without adjustment for race. BUN/Creatinine Ratio 13.4 LAB CHEMISTRY METHOD 01/18/2024 4:18 PM [facility] Calcium 10.6(H) 8.5 - 10.5 mg/dL LAB CHEMISTRY METHOD 01/18/2024 4:18 PM [facility] AST (SGOT) 36 10 - 42 unit/L LAB CHEMISTRY METHOD 01/18/2024 4:18 PM [facility] ALT (SGPT) 34 10 - 60 unit/L LAB CHEMISTRY METHOD 01/18/2024 4:18 PM [facility] Alkaline Phosphatase 167(H) 42 - 121 unit/L LAB CHEMISTRY METHOD 01/18/2024 4:18 PM [facility] Total Protein 9.0(H) 6.0 - 8.0 g/dL LAB CHEMISTRY METHOD 01/18/2024 4:18 PM [facility] Albumin 4.7 3.2 - 5.0 g/dL LAB CHEMISTRY METHOD 01/18/2024 4:18 PM [facility] Total Bilirubin 0.6 0.0 - 1.4 mg/dL LAB CHEMISTRY METHOD 01/18/2024 4:18 PM [facility] Blood Venous blood specimen / Unknown Venipuncture / Unknown 01/18/2024 6:29 AM EST 01/18/2024 12:24 PM EST us Gary Kam MD LAB BLOOD ORDERABLES Final Resul t [facility] [address] [place] [address], documented in this encounter Visit Diagnoses Diagnosis Bipolar disorder, unspecified (CMS/HCC V24, CMS/HCC V28) Bipolar disorder, unspecified documented in this encounter Care Teams Chief Design Drafter Relationship Specialty Start Date End Date Valarie Akbar MD [address] [place] [address] , [address] [facility] D/B/A: [facility] [place] PCP - General Internal Medicine 02/18/24 documented as of this encounter
--- OUTSIDE RECORDS SUMMARY | 2024-07-20 12:16 | XMS_ITS | Clinical Summary ---
Author Organization [address] Address [address] [place] [address] Phone Care Team Providers Care Social Media Campaign Manager Name Role Phone Valarie Akbar MD Primary Care Provider [phone] Allergies Active Allergy Reactions Criticality Noted Date Comments Fentanyl 04/18/2024 Penicillins 04/18/2024 Medications No known medications Encounters Date Type Department Care Team Description 06/28/2024 2:15 PM EDT Office Visit Orthopedic Surgery [facility] [address] [address] Mateo Weathers DPM Dermatophytosis of nail (Primary Dx); Sesamoiditis of left foot; Acquired hammer toe of right foot; Hammer toe of left foot; Corns and callosities; Dermatofibroma of left lower leg; Acquired hallux valgus of right foot; Follow-up exam from Last 3 Months Social History Tobacco [...] - - Weight 86.2 kg (190 lb) 06/28/2024 1:43 PM EDT Height 165.1 cm (5' 5 ) 06/28/2024 1:43 PM EDT Body Mass Index 31.62 06/28/2024 1:43 PM EDT Plan of Treatment Upcoming Encounters Date Type Department Care Team ([facility] st Contact Info) Description 08/28/2024 2:00 PM EDT Office Visit Orthopedic [facility] [address] [address] Mateo Weathers, DPM 175 [facility] [address] [place] [address] Health Maintenance Due Date Last Done Comments [...] patient's age to complete this topic Insurance [facility] Member Subscriber Plan / Payer (Ef fective 2016-Present) Name:Cathy Herron Relation to Subscriber:Self Name:Cathy Herron Payer ID:[id number] Group ID:[id number] Type:Not on file Address: [address] [place] [phone] MED[place] Care Teams Social Media Campaign Manager Relationship Specialty Start Date End Date Valarie Akbar MD [address] [facility] , [address] [facility] Physician Associ D/B/A: [facility] [place] PCP - General Internal Medicine 02/18/24
--- OUTSIDE RECORDS SUMMARY | 2024-07-20 12:16 | XMS_ITS | Clinical Summary ---
Author Organization [facility] [employer] [facility] Address [address] [facility] [address] [place] [address] Care Team Providers Care Coordinator Of Placement Name Role Phone Unavailable Primary Care Provider [...] patient's age to complete this topic Insurance [facility] STANDARD [facility] ADV
== END 2024-07-20 11:38 | disposition home or self-care (01) ==
LOC: HO.HOS 10:48
PROVIDERS: PCP Internal Medicine; Visit Provider Orthopaedic Surgery
DX: M16.12 Unilateral primary osteoarthritis, left hip (principal); M25.562 Pain in left knee
CPT/HCPCS: 20610; 99214

== ENCOUNTER → 2024-07-20 10:48 | Outpatient (BNVA) | payer OTHER, SELFPAY | PROVIDERS: PCP Internal Medicine; Visit Provider Orthopaedic Surgery | DX: M16.12 Unilateral primary osteoarthritis, left hip (principal); M25.562 Pain in left knee | CPT/HCPCS: 20610; 99212; J0665; J1100; J2003 ==

== ENCOUNTER 2024-08-20 11:58 | Emergency (ER) | payer OTHER, SELFPAY ==
--- NOTE | ~2024-08-20 | XR_ITS ---
CLINICAL HISTORY: fall, pain 4 view left knee Comparison: CR - XR KNEE LT 3V - 05/13/24 06:27 EST CR/SR - XR KNEE LT 3V - 12/11/23 13:26 EDT Findings: No fractures or dislocations. Redemonstration of well corticated irregularities in the proximal fibula likely sequelae of remote trauma. Mild tricompartmental joint space narrowing. No joint effusion. No radiopaque foreign body. Stable quadriceps tendon and tibial tuberosity enthesopathies. IMPRESSION: No acute fracture, dislocation or significant joint effusion. This document has been electronically signed by: Flower Morgan DO on 08/20/2024 14:02:13
--- NOTE | ~2024-08-20 | XR_ITS ---
CLINICAL HISTORY: fall, pain 3 view, pelvis and left hip Comparison: None Findings: No acute fracture or dislocation. Visualized portions of the right hip prosthesis appear intact without loosening. Moderately severe narrowing with degenerative spurring in the left acetabulofemoral joint. Multiple clips project over the sacrum and left hemipelvis. There are L5-S1 interbody metallic disc spacers. IMPRESSION: No acute fracture or dislocation. This document has been electronically signed by: Flower Morgan DO on 08/20/2024 14:05:38
[2024-08-20 12:05] VITALS: BP 122/78; PULSE 83; O2SAT 95
[2024-08-20 12:16] VITALS: BP 101/59; PULSE 76; RESP 18; TEMP 36.9; O2SAT 95; BMI 34.2
--- NOTE | 2024-08-20 12:26 | ECG_ITS ---
Test Reason : FALL Blood Pressure : */* mmHG Vent. Rate : 73 BPM Atrial Rate : 73 BPM P-R Int : 174 ms QRS Dur : 90 ms QT Int : 418 ms P-R-T Axes : 34 45 33 degrees QTcB Int : 460 ms Normal sinus rhythm Normal ECG When compared with ECG of 27-Sep-2023 09:27, ST no longer depressed in Anterior leads Referred By: Generic ED Physician Electronically Signed By: ANIKET VALLADARES MD
--- NOTE | 2024-08-20 12:34 | ED.FALL ---
HPI - Fall General Chief Complaint: Fall Stated Complaint: FALL HIP PAIN Time Seen by Provider: 08/20/24 12:34 Source: patient and EMS Mode of arrival: EMS Limitations: no limitations History of Present Illness ED Provider: sherine brown np HPI Narrative: Patient is a 54-year-old female w/ chronic LLE pain secondary to arthritis, s/p mechanical trip and fall today landing first onto her left knee and subsequesntly onto her side/ left hip, with increase in chronic pain and decreased arom from hip to knee. no numbness or tingling to extremity. Denies headstrike, LOC, use of anticoagulants or known coagulation disorders. Related Data Previous Rx's ?Medication ?Instructions ?Recorded duloxetine 30 mg capsule,delayed 30 mg PO DAILY 15 days #15 caps 07/06/23 release duloxetine 60 mg capsule,delayed 60 mg PO QAM 15 days #15 caps 07/06/23 release oxcarbazepine 150 mg tablet 150 mg PO BID 15 days #30 tabs 07/06/23 oxcarbazepine 600 mg tablet 600 mg PO BID 15 days #30 tabs 07/06/23 prazosin 1 mg capsule 1 mg PO BEDTIME 15 days #15 caps 07/06/23 quetiapine 400 mg tablet 400 mg PO BEDTIME 15 days #15 tabs 07/06/23 benztropine 1 mg tablet 1 mg PO .QHS #30 tabs 07/15/23 quetiapine 50 mg tablet 50 mg PO BID PRN severe anxiety or 07/15/23 agitation 15 days #30 tabs lorazepam 0.5 mg tablet (Ativan) 1 mg (2 x 0.5 mg) PO DAILY PRN 09/27/23 anxiety 1 day #2 tabs folding cane with seat #1 ea 11/12/23 peg 3350-electrolytes 236 240 ml PO Q10M colonoscopy #4,000 12/01/23 gram-22.74 gram-6.74 gram-5.86 mL gram solution (Golytely) acetaminophen 500 mg tablet 1,000 mg (2 x 500 mg) PO Q6H PRN 01/12/24 (Tylenol Extra Strength) fever or pain #20 tabs clonazepam 1 mg tablet 1 mg PO BID #6 tabs 01/17/24 ergocalciferol (vitamin D2) 1,250 1,250 mcg PO QWEEK #12 caps 02/16/24 mcg (50,000 unit) capsule (Vitamin D2) diclofenac sodium 1 % topical gel 2 g topical BID #100 grams 05/13/24 (Arthritis Pain (diclofenac)) Rollator with seat #1 ea 06/14/24 diclofenac sodium 1 % topical gel 2 g topical BID #50 grams 08/20/24 oxycodone 5 mg tablet 5 mg PO Q6H PRN pain #10 tabs 08/20/24 Allergies Allergy/AdvReac Type Severity Reaction Status Date / Time fentanyl [FENTANYL] Allergy Intermediate VOMITING Verified 08/20/24 12:18 Penicillins [PENICILLINS] Allergy Intermediate ANAPHYLAXIS Verified 08/20/24 12:18 sertraline [From ZOLOFT] Allergy Intermediate ANXIETY Verified 08/20/24 12:18 zolpidem [From AMBIEN] Allergy Intermediate suicidal Verified 08/20/24 12:18 attempt with zolpidem Review of Systems Review of Systems: Yes all other systems are reviewed and are negative PMFSH Past Medical History Attestation statement: The following information was validated with the patient. Source: old records reviewed Medical History MDD (major depressive disorder), recurrent episode, moderate Frequent falls Shoulder pain, bilateral Lumbar pain Screening for cervical cancer Osteoarthritis of right knee Urinary incontinence Skin lesion Right sided abdominal pain Cervical radiculopathy Osteoarthritis of acromioclavicular joint Rotator cuff tendonitis Chronic right shoulder pain Cervical strain Polyarthralgia Carpal tunnel syndrome Bipolar disorder Depression Anxiety Hypovitaminosis D Constipation by delayed colonic transit Surgical History Hx of colonoscopy History of surgery History of right hip replacement History of hemorrhoidectomy History of bunionectomy History of cholecystectomy History of appendectomy Family History Family History Father Depression Prostate cancer Chronic mental illness Mother Diabetes Cancer Breast cancer Maternal Aunt Breast cancer Family/Other Chronic mental illness Other Mental health disorder Social History Social History Household Members: Other Household Members Other:: My dog Housing: House Alcohol intake: never Patient Tobacco Use Status: Never used Tobacco Tobacco use type: Cigarette Smoked in Last 30 Days: No e-Cigarette/Vaping Use: Never Used Second Hand Smoke Exposure: No Use of substances other than those prescribed or required for medical reasons: No Substance Use Type: Marijuana Advance Directives: Yes Advance Directives on File: Yes Advance Directives Date on File: 01/17/24 Do you have a plan to hurt others: No Plan Patient : No service: No Current occupational status: disabled 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 No acute distress.?Normal affect. Neck: Normal inspection.? Neck supple.?? CVS: Heart sounds normal. Normal heart rate and rhythm.? Pulses normal.?? Respiratory: No respiratory distress.? Lung sounds clear to auscultation bilaterally?? Abdomen: Soft and non-tender. Normoactive bowel sounds. Skin: Skin warm and dry.? Normal skin color.?? Extremities: No lower extremity edema.? No calf ttp, no deformity, shortyening or rotation noted to LLE. decreased AROM to left hip and knee with diffuse TTP. 2+ DP/PT pulse? Neuro: Moves all extremities spontaneously. Sensation intact bilaterally. No focal neuro deficits. Ambulates with antalgic gait. Medications Administered Discontinued Medications Generic Name Dose Route Start Last Admin Trade Name Freq PRN Reason Stop Dose Admin Oxycodone HCl 5 mg 08/20/24 13:15 08/20/24 13:44 Oxycodone Hcl Immed Release 5 Mg Tablet PO 08/20/24 13:16 5 mg ONCE ONE Administration Medical Decision Making Medical Decision Making [facility] Narrative: Patient is a 54-year-old female with past medical history on prolonged QT, arthritis, anxiety, bipolar disorder emergency department for evaluation of left knee and left hip pain after fall today as per HPI. There was no obvious deformity on evaluation, he is neurovascularly intact distally AROM, plan to obtain XR to exclude acute fracture/dislocation though I suspect this is acute exacerbation of her chronic pain secondary to her arthritis. She reports the diclofenac gel has been helpful in the past so she does not have any left at home, she will be provided with a dose of oxycodone in the emergency department. At pain relief from oxycodone, ambulatory with antalgic gait which is baseline for patient, feels well enough to return home at this time, XR did not show evidence of acute fracture dislocation. Stable for outpatient PCP/Orthopedics. Differential Diagnosis Differential Diagnoses: The differential diagnosis associated with the presentation includes (Fracture, dislocation, contusion, sprain, acute on chronic pain secondary to osteoarthritis) Independent Interpretation I performed an independent interpretation of an: Plain X-Ray (No acute fracture or dislocation of the left hip/left knee) Radiology Impression Discussion of test interpretation with radiology: I have reviewed the radiologist's reading. Radiologist Impression: 4 view left knee Comparison: CR - XR KNEE LT 3V - 05/13/24 06:27 EST CR/SR - XR KNEE LT 3V - 12/11/23 13:26 EDT Findings: No fractures or dislocations. Redemonstration of well corticated irregularities in the proximal fibula likely sequelae of remote trauma. Mild tricompartmental joint space narrowing. No joint effusion. No radiopaque foreign body. Stable quadriceps tendon and tibial tuberosity enthesopathies. IMPRESSION: No acute fracture, dislocation or significant joint effusion. 3 view, pelvis and left hip Comparison: None Findings: No acute fracture or dislocation. Visualized portions of the right hip prosthesis appear intact without loosening. Moderately severe narrowing with degenerative spurring in the left acetabulofemoral joint. Multiple clips project over the sacrum and left hemipelvis. There are L5-S1 interbody metallic disc spacers. IMPRESSION: No acute fracture or dislocation. External Record Review External record reviewed: Outpatient record and Other I attest that I have reviewed patients [employer], and at the time prescribing the patient a controlled substance is appropriate based off of patients diagnosis and treatment plan. Prescription Management I considered prescription management with: Pain Medication (Diclofenac gel and tripped prescription for oxycodone, precautions on usage) Chronic Conditions Patient?s care impacted by: Other (See narrative above) Discharge Plan Discharge Clinical Impression: Fall Osteoarthritis of left hip Qualifiers: Osteoarthritis type: unspecified Qualified Code(s): M16.12 - Unilateral primary osteoarthritis, left hip Patient Disposition: Home, Self-Care Instructions: Osteoarthritis (ED) Additional Instructions: X-ray today of the hip and knee do not show any fracture dislocation which is very reassuring. However, discussed after a fall/injury especially with underlying advanced arthritis can anticipate an increase in pain from baseline. Please be sure to rest over the next few days, avoid excessive activity. Apply ice/heat for 10-15 minutes 4-6 times daily. Continue taking your medications as prescribed. I have sent a prescription to the pharmacy for the diclofenac gel as well as a few tablets of the oxycodone. Oxycodone is a narcotic medication, it can be addictive. It may make you drowsy. You should not drive, drink alcohol, or work while taking this medication. Please be certain to follow up with your PCP/dispute resolution specialist for persistent symptoms. You may return back to emergency department with any new or worsening symptoms or concerns Prescriptions: New diclofenac sodium 1 % gel 2 g topical BID Qty: 50 0RF Rx Instructions: apply to hip and knee oxycodone 5 mg tablet 5 mg PO Q6H PRN (Reason: pain) Qty: 10 0RF Rx Instructions: Partial Fill upon patient request. No Action (DME) Rollator with seat See Rx Instructions .Route .MEDSUPPLY Qty: 1 0RF Rx Instructions: As directed oxcarbazepine 150 mg tablet 150 mg PO BID 15 Days Qty: 30 1RF prazosin 1 mg capsule 1 mg PO BEDTIME 15 Days Qty: 15 1RF oxcarbazepine 600 mg tablet 600 mg PO BID 15 Days Qty: 30 1RF duloxetine 60 mg capsule,delayed release(DR/EC) 60 mg PO QAM 15 Days Qty: 15 1RF quetiapine 400 mg tablet 400 mg PO BEDTIME 15 Days Qty: 15 0RF duloxetine 30 mg capsule,delayed release(DR/EC) 30 mg PO DAILY 15 Days Qty: 15 1RF benztropine 1 mg tablet 1 mg PO .QHS Qty: 30 0RF quetiapine 50 mg tablet 50 mg PO BID PRN (Reason: severe anxiety or agitation) 15 Days Qty: 30 1RF clonazepam 1 mg tablet 1 mg PO BID Qty: 6 0RF acetaminophen [Tylenol Extra Strength] 500 mg tablet 1,000 mg PO Q6H PRN (Reason: fever or pain) Qty: 20 0RF diclofenac sodium [Arthritis Pain (diclofenac)] 1 % gel 2 g topical BID Qty: 100 0RF Rx Instructions: apply to joint as needed for pain lorazepam [Ativan] 0.5 mg tablet 1 mg PO DAILY PRN (Reason: anxiety) 1 Days Qty: 2 0RF Rx Instructions: Take 45 minutes before MRI. (DME) folding cane with seat See Rx Instructions .Route .MEDSUPPLY Qty: 1 0RF Rx Instructions: As directed ergocalciferol (vitamin D2) [Vitamin D2] 1,250 mcg (50,000 unit) capsule 1,250 mcg PO QWEEK Qty: 12 0RF peg 3350-electrolytes [Golytely] 236-22.74-6.74 -5.86 gram recon soln 240 ml PO Q10M Qty: 4000 0RF Rx Instructions: as per split prep instructions, until fecal effluent is clear Referrals: Valarie Ramos MD [Primary Care Provider] - Interventions: ED Discharge Assessment Last Done: 08/20/24 16:22 Discharge Date/Time: 08/20/24 16:23 Print Language: Nauruan
[2024-08-20] MEDS: oxyCODONE HCl Immed Release 5 MG TABLET PO (13:44)
[2024-08-20 14:37] VITALS: BP 121/75; PULSE 64; RESP 16; O2SAT 97
[2024-08-20 16:01] VITALS: BP 129/72; PULSE 65; RESP 18; TEMP 37.1; O2SAT 97
--- NOTE | 2024-08-20 16:17 | PC.NURSE ---
Informed pt. that provider was aware and unable to change pharmacy d/t narcotic being sent electronically. Pt. aware. dc to continue.
[2024-08-20 16:22] VITALS: BP 129/72; PULSE 65; RESP 18; TEMP 37.1; O2SAT 97
== END 2024-08-20 16:23 | disposition home or self-care (01) ==
PROVIDERS: Emergency Provider Emergency Medicine; PCP Internal Medicine
DX: M16.12 Unilateral primary osteoarthritis, left hip (principal); Z91.81 History of falling; M25.562 Pain in left knee
CPT/HCPCS: 73502; 73564; 93005; 99283; 99285

== ENCOUNTER → 2024-08-20 12:26 | Outpatient (BNV) | payer OTHER, SELFPAY | PROVIDERS: Emergency Provider Emergency Medicine; PCP Internal Medicine; Visit Provider Internal Medicine Cardiovascular Disease | DX: Z13.6 Encounter for screening for cardiovascular disorders (principal) | CPT/HCPCS: 93010 ==

== ENCOUNTER → 2024-08-20 12:51 | Outpatient (BNV) | payer OTHER, SELFPAY | PROVIDERS: Emergency Provider Emergency Medicine; PCP Internal Medicine; Visit Provider Radiology Diagnostic Radiology | DX: M25.562 Pain in left knee (principal); M25.552 Pain in left hip | CPT/HCPCS: 73502; 73564 ==

== ENCOUNTER 2024-09-01 08:56 | Outpatient (AMB) | payer OTHER, SELFPAY ==
[2024-09-01 08:59] VITALS: BP 94/68; PULSE 90; TEMP 36.3; O2SAT 96; BMI 34.3
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
== END 2024-09-01 10:01 | disposition home or self-care (01) ==
LOC: HO.HMCH 08:57
PROVIDERS: PCP Internal Medicine; Visit Provider Nurse Practitioner Family
DX: M16.12 Unilateral primary osteoarthritis, left hip (principal); M25.562 Pain in left knee

== ENCOUNTER → 2024-09-01 08:56 | Outpatient (BNVA) | payer OTHER, SELFPAY | PROVIDERS: PCP Internal Medicine; Visit Provider Nurse Practitioner Family | DX: M25.562 Pain in left knee (principal); M16.12 Unilateral primary osteoarthritis, left hip; Z91.81 History of falling | CPT/HCPCS: 96127; 99212 ==

== ENCOUNTER 2024-09-05 08:13 | Emergency (ER) | payer OTHER, SELFPAY ==
--- NOTE | ~2024-09-05 | CT_ITS ---
EXAMINATION: CT CHEST WITHOUT CONTRAST CT abdomen and pelvis without IV contrast CLINICAL INFORMATION: Fell from bed, left hip pain COMPARISON: September 27, [address] TECHNIQUE: Multidetector volumetric CT imaging of the chest was done. Axial MIP volume rendering provided. Sagittal and coronal reformatted images were obtained. Multidetector volumetric images were obtained from the superior aspect of the liver through the pubic symphysis without contrast. Sagittal and coronal reformatted images were obtained on the technologist's workstation. Oral contrast: No DLP: 1146 mGY*cm This CT examination was performed using dose optimization techniques as appropriate, variously including the following: *Automated exposure control *Adjustment of mA and/or kV according to patient size (this includes techniques or standardized protocols for targeted exams where dose is matched to indication/reason for exam; i.e. extremities or head) *Use of iterative reconstruction technique FINDINGS: LUNGS: Linear atelectasis or scarring is present in the right lung base. MEDIASTINUM: The mediastinum is normal. CORONARY ARTERY CALCIFICATION: Present PLEURA: There is mild pleural thickening or atelectasis in the posterior medial base of the left lower lobe. AXILLA: No lymphadenopathy. Solid organ injury may be occult on unenhanced CT examination. LIVER, GALLBLADDER, AND BILIARY TREE: The liver is normal in size, shape, and attenuation. No focal hepatic lesion or biliary ductal dilatation is present. The gallbladder is absent and there are clips from cholecystectomy. PANCREAS: Again seen is a 11 Hounsfield unit 13 mm lesion on the superior aspect of the pancreas at the junction of the body and neck. No change. SPLEEN: Unremarkable. ADRENAL GLANDS: Unremarkable. KIDNEYS AND URETERS: Benign simple cysts are present in the left kidney. No change. BLADDER: Unremarkable. GASTROINTESTINAL TRACT: The small and large bowel are unremarkable. There are clips from appendectomy. There are a few scattered pseudodiverticula.. ABDOMINAL WALL: No significant hernia is appreciated. LYMPH NODES: Normal. VASCULAR: Unremarkable. PELVIC VISCERA: Uterus and ovaries are unremarkable. OSSEOUS STRUCTURES: Left hip demonstrates asymmetric narrowing superior laterally with large marginal osteophytes and appositional bone along the medial femoral neck Total hip arthroplasty is noted on the right. Mild to moderate degenerative changes are present in the SI joints. Degenerative disc disease is evident throughout the spine and most advanced at L4-5. Interbody spacer is present at L5-S1 with subsidence into L5 greater than S1. There is bony bridging across the level. CT/CT abdomen pelvis wo IV con IMPRESSION: Severe left hip osteoarthritis. 13 mm cystic mass in the neck body junction of the pancreas is stable at one year. Previously characterized as a serous cystadenoma versus less likely malignancy on MRI December 20, 2023. No solid organ injury. However, solid organ injury cannot be occult on unenhanced CT of the abdomen and pelvis. Degenerative disc disease with anterior surgical fusion of L5-S1. Fleischner guidelines were followed. Electronically signed by: Joseph Jones MD 09/05/2024 11:13 AM EDT
--- NOTE | ~2024-09-05 | CT_ITS ---
EXAMINATION: CT CERVICAL SPINE WITHOUT CONTRAST CLINICAL INFORMATION: Status post fall off bed COMPARISON: December 11, 2023. TECHNIQUE: Contiguous axial images through the cervical spine using 3 mm collimation with bone and soft tissue algorithm. Sagittal and coronal reformatted images acquired. DLP: 436.[address] examination was performed using dose optimization techniques as appropriate, variously including the following: *Automated exposure control *Adjustment of mA and/or kV according to patient size (this includes techniques or standardized protocols for targeted exams where dose is matched to indication/reason for exam; i.e. extremities or head) *Use of iterative reconstruction technique FINDINGS: Limited examination due to the exclusion of C7-T1 junction. Degenerative changes in the periodontal C1 region. Craniocervical junction is intact with normal alignment between the occipital condyles and the lateral masses of C1. C1 is intact. C2 is intact. C3 is intact. C4 is intact. C5 is intact. C6 is intact. C7 is intact. No gross prevertebral compartment hematoma. Tympanic cavities and mastoid air cells are aerated. The lung apices are not included in the [id number]. Syndesmophyte formation and marginal osteophyte formation C3 C7 more pronounced at C4-5 and C5-6. Reverse curvature apex at C5. No gross malalignment between the vertebral bodies or the facet joints. CT/CT cervical spine wo IV con IMPRESSION: Multilevel cervical spondylosis without acute fracture or trauma-related listhesis. Fleischner guidelines were followed. Electronically signed by: Tao Green MD 09/05/2024 10:58 AM EDT
--- NOTE | ~2024-09-05 | XR_ITS ---
EXAMINATION: XR HIP 1 VIEW LEFT WITH PELVIS HISTORY: fall. hip pain. fracture COMPARISON: Comparison is made with the prior examination dated 08/20/2024. FINDINGS: A single AP view of the pelvis and two views of the left hip are submitted. Osseous mineralization is normal. There is no fracture or dislocation. The patient is again noted to be status post right total hip arthroplasty. There is moderate to severe osteoarthritis of the left hip with joint space narrowing and osteophyte formation. There is a disc prosthesis at L5-S1. The soft tissues are unremarkable. XR/XR hip LT w PEL1V IMPRESSION: Moderate to severe osteoarthritis of the left hip as described. Electronically signed by: Tai Christian MD 09/05/2024 10:02 AM EDT
--- NOTE | ~2024-09-05 | CT_ITS ---
EXAMINATION: CT HEAD WITHOUT CONTRAST CLINICAL INFORMATION: fall of bed. headache COMPARISON: December 11, 2023. TECHNIQUE: Contiguous axial imaging was performed from the skull base to vertex without intravenous administration of contrast. This CT examination was performed using dose optimization techniques as appropriate, variously including the following: *Automated exposure control *Adjustment of mA and/or kV according to patient size (this includes techniques or standardized protocols for targeted exams where dose is matched to indication/reason for exam; i.e. extremities or head) *Use of iterative reconstruction technique DLP: 648.59 mGy-cm FINDINGS: No acute cortical disruption within the bony calvarium or the skull base. No acute intracranial hemorrhage, mass effect, midline shift, hydrocephalus or herniation. Udval-white matter differentiation is normal. Asymmetric prominent right lateral ventricle, congenital variant. Posterior cranial fossa contents demonstrated no gross masses hemorrhage. Sellar/suprasellar region demonstrated no gross masses. Craniocervical junction demonstrates normal position of the cerebellar tonsils. No air-fluid levels in the paranasal sinuses. Tympanic cavities and mastoid air cells are aerated. CT/CT head/brain wo IV con IMPRESSION: No acute fracture, bony calvarium. No acute intracranial hemorrhage or acute brain abnormality by CT. Electronically signed by: Tao Green MD 09/05/2024 10:53 AM EDT
--- NOTE | ~2024-09-05 | XR_ITS ---
EXAMINATION: XR KNEE 4 OR MORE VIEWS LEFT HISTORY: fall off bed COMPARISON: Comparison is made with the prior examination dated 08/20/2024. FINDINGS: Four views of the left knee are submitted. Osseous mineralization is normal. There is no fracture or dislocation. The joint spaces are preserved. The soft tissues are unremarkable. There is no joint effusion. XR/XR knee LT 4V IMPRESSION: Unremarkable examination of the left knee. Electronically signed by: Tai Christian MD 09/05/2024 10:03 AM EDT
--- NOTE | 2024-09-05 08:15 | ECG_ITS ---
Test Reason : fall Blood Pressure : */* mmHG Vent. Rate : 77 BPM Atrial Rate : 77 BPM P-R Int : 170 ms QRS Dur : 82 ms QT Int : 372 ms P-R-T Axes : 30 31 16 degrees QTcB Int : 420 ms Normal sinus rhythm Nonspecific T wave abnormality Abnormal ECG When compared to the previous EKG of 20 august 2024, Nonspecific ST and T wave abnormality Present Referred By: Generic ED Physician Electronically Signed By: RENALDO CARREON
[2024-09-05 08:22] VITALS: BP 118/76; PULSE 88; O2SAT 98
[2024-09-05 08:23] VITALS: BP 111/72; PULSE 80; RESP 20; TEMP 36.8; O2SAT 99; BMI 35.8
[2024-09-05 09:16] LABS: Basophils Absolute Auto 0.1 X10*3/uL (0.0-0.2); Eosinophils Absolute Auto 0.4 X10*3/uL (0.0-0.4); Eosinophils Percent Auto 4.9 % (0-4); Hematocrit 39.2 % (37.0-47.0); Hemoglobin 13.3 g/dl (12.0-16.0); Imm Gran Abs Auto 0.02 X10*3/uL (0.00-0.03); Imm Gran Pct Auto 0.3 % (0.0-0.4); Lymphocytes Absolute Auto 1.9 X10*3/uL (1.2-4.9); MANUAL DIFF FLAG NO; Mean Corpuscular HGB Conc 33.9 g/dl (31.0-35.0); Mean Corpuscular Hemoglobin 31.1 pg (27.0-33.0); Mean Corpuscular Volume 91.6 fL (80.0-98.0); Mean Platelet Volume 8.1 fL (9.4-12.3); Monocytes Absolute Auto 0.4 X10*3/uL (0.1-1.2); Monocytes Percent Auto 6.1 % (2-11); Neutrophils Absolute Auto 4.3 x10*3/uL (2.0-8.3); Neutrophils Percent Auto 60.7 % (45-73); Platelet Count 211 X10*3/uL (160-400); Red Blood Count 4.28 X10*6/uL (4.20-5.50); Red Cell Distribution Width 13.1 % (11.0-16.0); White Blood Count 7.1 X10*3/uL (4.8-10.8)
--- NOTE | 2024-09-05 09:24 | ED_ITS ---
HPI - General Adult General Chief complaint: Fall Stated complaint: Syncopal Fall Hip Pain Time Seen by Provider: 09/05/24 09:15 Source: patient Mode of arrival: ambulatory Limitations: no limitations History of Present Illness ED Provider: Olvin Hernandez HPI narrative: 54 yold female with pmh of DAVID, fibromyalgia, bipolar, Vertigo, chronic knee pain, presents to the ED for headache, posterior neck pain, left hip pain, and knee pain, After falling off her bed. Patient states she was sleeping and she rolled of the bed into her left hip and knee. patient states she is due to for left hip/knee replacement. patient denies loss of concscisouness or syncope. patiet staets she rolled of bed and fell. Patient denies any chest pain, shortnes of breath, abdominal pain, or weakness. Related Data Previous Rx's ?Medication ?Instructions ?Recorded duloxetine 30 mg capsule,delayed 30 mg PO DAILY 15 day s #15 caps 07/06/23 release duloxetine 60 mg capsule,delayed 60 mg PO QAM 15 days #15 caps 07/06/23 release oxcarbazepine 150 mg tablet 150 mg PO BID 15 days #30 tabs 07/06/23 oxcarbazepine 600 mg tablet 600 mg PO BID 15 days #30 tabs 07/06/23 prazosin 1 mg capsule 1 mg PO BEDTIME 15 days #15 caps 07/06/23 quetiapine 400 mg tablet 400 mg PO BEDTIME 15 days #1 5 tabs 07/06/23 benztropine 1 mg tablet 1 mg PO .QHS #30 tabs quetiapine 50 mg tablet 50 mg PO BID PRN severe anxi ety or 07/15/23 agitation 15 days #30 tabs lorazepam 0.5 mg tablet (Ativan) 1 mg (2 x 0.5 mg) PO DAILY PRN 09/27/23 anxiety 1 day #2 tabs folding cane with seat #1 ea 11/12/23 peg 3350-electrolytes 236 240 ml PO Q10M colonoscopy # 4,000 12/01/23 gram-22.74 gram-6.74 gram-5.86 mL gram solution (Golytely) acetaminophen 500 mg tablet 1,000 mg (2 x 500 mg) PO Q 6H PRN 01/12/24 (Tylenol Extra Strength) fever or pain #20 tabs clonazepam 1 mg tablet 1 mg PO BID #6 tabs 01/17/24 ergocalciferol (vitamin D2) 1,250 1,250 mcg PO QWEEK # 12 caps 02/16/24 mcg (50,000 unit) capsule (Vitamin D2) diclofenac sodium 1 % topical gel 2 g topical BID #100 grams 05/13/24 (Arthritis Pain (diclofenac)) Rollator with seat #1 ea 06/14/24 diclofenac sodium 1 % topical gel 2 g topical BID #50 grams 08/20/24 oxycodone 5 mg tablet 5 mg PO Q6H PRN pain #10 tab s 08/20/24 naproxen 500 mg tablet 500 mg PO BID PRN pain #14 t abs 09/05/24 Allergies Allergy/AdvReac Type Severity Reaction Status Date / Time fentanyl (FENTANYL) Allergy Intermediate VOMITING Verified 09/05/24 08:24 Penicillins (PENICILLINS) Allergy Intermediate ANAPHYLAXIS Verified 09/05/24 08:24 sertraline (From ZOLOFT) Allergy Intermediate ANXIETY Verified 09/05/24 08:24 zolpidem (From AMBIEN) Allergy Intermediate suicidal Verified 09/05/24 08:24 attempt with zolpidem Review of Systems 2 Review of Systems: left hip/knee pain headache, and psoterior neck pain Yes all other systems are reviewed and are negative [facility] Past Medical History Medical History MDD (major depressive disorder), recurrent episode, moderate Frequent falls Shoulder pain, bilateral Lumbar pain Screening for cervical cancer Osteoarthritis of right knee Urinary incontinence Skin lesion Right sided abdominal pain Cervical radiculopathy Osteoarthritis of acromioclavicular joint Rotator cuff tendonitis Chronic right shoulder pain Cervical strain Polyarthralgia Carpal tunnel syndrome Bipolar disorder Depression Anxiety Hypovitaminosis D Constipation by delayed colonic transit Surgical History Hx of colonoscopy History of surgery History of right hip replacement History of hemorrhoidectomy History of bunionectomy History of cholecystectomy History of appendectomy Family History Family History Father Depression Prostate cancer Chronic mental illness Mother Diabetes Cancer Breast cancer Maternal Aunt Breast cancer Family/Other Chronic mental illness Other Mental health disorder Social History Social History Household Members: Other Household Members Other:: My dog Housing: House Alcohol intake: never Patient Tobacco Use Status: Never used Tobacco Tobacco use type: Cigarette e-Cigarette/Vaping Use: Never Used Second Hand Smoke Exposure: No Substance Use Type: Marijuana Advance Directives Date on File: 01/17/24 service: No Current occupational status: disabled 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 Cognitive needs: No Hearing needs: No Vision needs: Yes (glasses) Physical Exam ED Vital Signs: Vital Signs - 24 hr 09/05/24 08:23 09/05/24 11:10 09/05/24 13:37 Temperature 98.2 F 98.1 F Pulse Rate 80 76 Respiratory Rate 20 20 18 Blood Pressure 111/72 117/80 Pulse Oximetry 99 95 Oxygen Delivery Method Room Air Room Air BMI result Body Mass Index 35.8 Const General: cooperative, healthy appearing, comfortable, no acute distress, well developed, alert, awake and Physically active [facility] Head: Yes normal to inspection, Yes No palpable skull fracture present, Yes normocephalic and Yes atraumatic Eyes General: appearance normal, both eyes and all related structures Neck Neck: Yes normal visual inspection, Yes full ROM, Yes no lymphadenopathy, Yes no meningeal signs, Yes trachea midline, Yes supple, No anterior neck swelling and Yes tender (posterior cervical spine tenderness) Chest Chest palpation & inspection: normal inspection of the chest and normal palpation of entire chest wall Resp Effort & Inspection: normal respiratory effort and able to speak in complete sentences Auscultation: clear to auscultation bilaterally Cardio Jugular venous distension: no JVD Heart sounds: S1 normal heart sound present and S2 normal heart sound present GI Inspection: Yes normal to inspection Palpation (GI): Soft to palpation, not firm, nontender, no guarding and not rigid General: Yes no CVA tenderness Back/Spine/Pelvis Back: no CVA tenderness and No Duval-Pyle sign present Skin General skin exam: no rashes or lesions noted, elasticity normal and turgor normal Neuro General: gait normal, tone normal, moves all extremities, Normal light touch and pain sensation, no meningeal signs, no focal motor deficits, CN's II-XI intact bilaterally and normal sensation to monofilament Extrem Upper/lower leg/hip images: 2 1. Positive for tenderness on palpation. Negative for crepitus, erythema, ecchymosis, or obvious deformity. Rest of extremity normal. Motor and neurovascular exam intact. 2. Positive for tenderness on palpation. Negative for crepitus, erythema, ecchymosis, or obvious deformity. Rest of extremity normal. Motor and neurovascular exam intact. Psych Appearance: grossly normal, well kempt and not disheveled Medications Administered Discontinued Medications Generic Name Dose Route Start Last Admin Trade Name Lamin PRN Reason Stop Dose Admin Hydromorphone HCl 0.5 mg 09/05/24 10:43 09/05/24 11:10 Hydromorphone Hcl 0.5 Mg/0.5 Ml Syringe IM 09/05/24 10:44 0.5 mg ONCE ONE Administration Protocol Medical Decision Making Medical Decision Making [facility] Narrative: 54-year-old female presents to ED for fall after rolling off the bed while sleeping. Patient states left hip left knee pain. Patient is sent for imaging EKG labs already ordered. 12:17pm: Images came back normal. Patient given Dilaudid for pain. We will repeat 2nd troponin. 2:30PM: second troponin came back negative. Images are all negative for any acute emergent etiologies. Patient informed to follow up with primary care provider. Patient explained worrisome signs and informed to return to the ED immediately. Not suspecting PE, CO, stroke, rhabdomylosis, or any other life threatening reaction. Differential Diagnosis Differential Diagnoses: The differential diagnosis associated with the presentation includes (Fracture, dislocation, sprain,) Admission/Observation Consideration of admission/observation: Escalation of care including admission/observation considered Lab Data [facility] Lab Attestation statement: I reviewed the patient's lab results. 09/05/24 09:09 09/05/24 09:09 Labs: Lab Results 09/05/24 09/05/24 Range/Units 09:09 13:35 WBC 7.1 (4.8-10.8) X10*3/uL RBC 4.28 (4.20-5.50) X10*6/uL Hgb 13.3 (12.0-16.0) g/dl Hct 39.2 (37.0-47.0) % MCV 91.6 (80.0-98.0) fL MCH 31.1 (27.0-33.0) pg MCHC 33.9 (31.0-35.0) g/dl RDW 13.1 (11.0-16.0) % Plt Count 211 (160-400) X10*3/uL MPV 8.1 L (9.4-12.3) fL Immature Gran % (Auto) 0.3 (0.0-0.4) % Neut % (Auto) 60.7 (45-73) % Lymph % (Auto) 27.0 (20-40) % [place] % (Auto) 6.1 (2-11) % Eos % (Auto) 4.9 H (0-4) % Baso % (Auto) 1.0 (0-2) % Lymph # (Auto) 1.9 (1.2-4.9) X10*3/uL [place] # (Auto) 0.4 (0.1-1.2) X10*3/uL Eos # (Auto) 0.4 (0.0-0.4) X10*3/uL Baso # (Auto) 0.1 (0.0-0.2) X10*3/uL Abs Immat Gran (auto) 0.02 (0.00-0.03) X10*3/uL Absolute Neuts (auto) 4.3 (2.0-8.3) x10*3/uL Absolute Nucleated RBC 0.000 (0.0-0.012) X10*3/uL Nucleated RBC % (auto) 0.0 (0.0-0.2) /100WBC Sodium 140 (135-145) mmol/L Potassium 4.2 (3.3-5.1) mmol/L Chloride 109 H (96-108) mmol/L Carbon Dioxide 24 (22-29) mmol/L Anion Gap 11 L (12-20) BUN 11 (9-16) mg/dL Creatinine 0.72 (0.5-1.4) mg/dL Estim Creat Clear Calc 100.8 Estimated GFR > 60 Random Glucose 91 (60-115) mg/dL Calcium 9.1 (8.4-10.2) mg/dL Magnesium 2.1 (1.6-2.6) mg/dL Total Bilirubin 0.3 (0.0-1.0) mg/dL AST 19 (5-31) U/L ALT 11 (0-31) U/L Alkaline Phosphatase 119 H (39-117) U/L Troponin I High Sens < 2.7 < 2.7 (<3.5-17.0) ng/L Total Protein 7.4 (6.5-8.0) g/dL Albumin 4.4 (3.5-5.0) g/dL Independent Interpretation I performed an independent interpretation of an: EKG (Normal sinus rhythm), Plain X-Ray and CT Scan Interpretation: Independent Historian Clinical information obtained from an independent historian. History obtained from or confirmed by: Other (patient) External Record Review External record reviewed: Other (prior visits) Prescription Management I considered prescription management with: Pain Medication Discharge Plan Discharge Clinical Impression: Fall, Hip osteoarthritis Patient Disposition: Home, Self-Care Instructions: Osteoarthritis (ED), Fall Prevention for Older Adults (ED) Additional Instructions: Recommend follow-up with your primary care provider. No labs and imaging came back reassuring. Retractors to the ED immediately for any headache, dizziness, nausea, vomiting, chest pain, shortness of breath, swelling, ecchymosis, crepitus, or any other symptoms. Prescriptions: New naproxen 500 mg tablet 500 mg PO BID PRN (Reason: pain) Qty: 14 0RF No Action (DME) Rollator with seat See Rx Instructions .Route .MEDSUPPLY Qty: 1 0RF Rx Instructions: As directed oxcarbazepine 150 mg tablet 150 mg PO BID 15 Days Qty: 30 1RF prazosin 1 mg capsule 1 mg PO BEDTIME 15 Days Qty: 15 1RF oxcarbazepine 600 mg tablet 600 mg PO BID 15 Days Qty: 30 1RF duloxetine 60 mg capsule,delayed release(DR/EC) 60 mg PO QAM 15 Days Qty: 15 1RF quetiapine 400 mg tablet 400 mg PO BEDTIME 15 Days Qty: 15 0RF duloxetine 30 mg capsule,delayed release(DR/EC) 30 mg PO DAILY 15 Days Qty: 15 1RF benztropine 1 mg tablet 1 mg PO .QHS Qty: 30 0RF quetiapine 50 mg tablet 50 mg PO BID PRN (Reason: severe anxiety or agitation) 15 Days Qty: 30 1RF clonazepam 1 mg tablet 1 mg PO BID Qty: 6 0RF diclofenac sodium 1 % gel 2 g topical BID Qty: 50 0RF Rx Instructions: apply to hip and knee oxycodone 5 mg tablet 5 mg PO Q6H PRN (Reason: pain) Qty: 10 0RF Rx Instructions: Partial Fill upon patient request. acetaminophen [Tylenol Extra Strength] 500 mg tablet 1,000 mg PO Q6H PRN (Reason: fever or pain) Qty: 20 0RF diclofenac sodium [Arthritis Pain (diclofenac)] 1 % gel 2 g topical BID Qty: 100 0RF Rx Instructions: apply to joint as needed for pain lorazepam [Ativan] 0.5 mg tablet 1 mg PO DAILY PRN (Reason: anxiety) 1 Days Qty: 2 0RF Rx Instructions: Take 45 minutes before MRI. (DME) folding cane with seat See Rx Instructions .Route .MEDSUPPLY Qty: 1 0RF Rx Instructions: As directed ergocalciferol (vitamin D2) [Vitamin D2] 1,250 mcg (50,000 unit) capsule 1,250 mcg PO QWEEK Qty: 12 0RF peg 3350-electrolytes [Golytely] 236-22.74-6.74 -5.86 gram recon soln 240 ml PO Q10M Qty: 4000 0RF Rx Instructions: as per split prep instructions, until fecal effluent is clear Referrals: Valarie Ramos MD [Primary Care Provider, Internal Medicine] - 2 days Referral Note: Fall. Osteoarthritis Clinical Impression: Hip osteoarthritis; Fall Stand Alone Forms: Work/School Release Interventions: ED Discharge Assessment Last Done: 09/05/24 15:09 Discharge Date/Time: 09/05/24 15:09 Print Language: Kiswahili
[2024-09-05 09:29] LABS: Alanine Aminotransferase 11 U/L (0-31); Albumin Level 4.4 g/dL (3.5-5.0); Alkaline Phosphatase 119 U/L (39-117); Anion Gap 11 (12-20); Aspartate Amino Transferase 19 U/L (5-31); Bilirubin Total 0.3 mg/dL (0.0-1.0); Blood Urea Nitrogen 11 mg/dL (9-16); Calcium 9.1 mg/dL (8.4-10.2); Carbon Dioxide 24 mmol/L (22-29); Chloride 109 mmol/L (96-108); Creatinine Clr Calc Pharmacy 100.8; Estimated Glomerular Filt Rate > 60; Glucose Random 91 mg/dL (60-115); Magnesium 2.1 mg/dL (1.6-2.6); Potassium 4.2 mmol/L (3.3-5.1); Sodium 140 mmol/L (135-145); Total Protein 7.4 g/dL (6.5-8.0)
[2024-09-05 09:37] LABS: Troponin-I High Sensitivity < 2.7 ng/L (<3.5-17.0)
[2024-09-05 11:10] VITALS: RESP 20
[2024-09-05] MEDS: HYDROmorphone HCl 0.5 MG/0.5 ML SYRINGE IM (11:10)
[2024-09-05 13:37] VITALS: BP 117/80; PULSE 76; RESP 18; TEMP 36.7; O2SAT 95
--- NOTE | 2024-09-05 13:42 | PC.NURSE ---
amulatory independently with steady gait/balance
[2024-09-05 14:02] LABS: Troponin-I High Sensitivity < 2.7 ng/L (<3.5-17.0)
[2024-09-05 15:02] VITALS: BP 114/66; PULSE 84; RESP 18; TEMP 36.8; O2SAT 96
[2024-09-05 15:09] VITALS: BP 114/66; PULSE 84; RESP 18; TEMP 36.8; O2SAT 96
== END 2024-09-05 15:09 | disposition home or self-care (01) ==
PROVIDERS: Physician Assistant; Emergency Provider Emergency Medicine; PCP Internal Medicine
DX: M16.12 Unilateral primary osteoarthritis, left hip (principal); M25.562 Pain in left knee; Z91.81 History of falling
CPT/HCPCS: 36415; 70450; 71250; 72125; 73502; 73564; 74176; 80053; 83735; 84484; 85025; 93005; 96372; 99283; 99284; J1171

== ENCOUNTER → 2024-09-05 08:15 | Outpatient (BNV) | payer OTHER, SELFPAY | PROVIDERS: Emergency Provider Emergency Medicine; PCP Internal Medicine; Visit Provider Internal Medicine | DX: R94.31 Abnormal electrocardiogram [ECG] [EKG] (principal); W19.XXXA Unspecified fall, initial encounter | CPT/HCPCS: 93010 ==

== ENCOUNTER → 2024-09-05 09:32 | Outpatient (BNV) | payer OTHER, SELFPAY | PROVIDERS: Emergency Provider Emergency Medicine; PCP Internal Medicine; Visit Provider Radiology Diagnostic Radiology | DX: M16.12 Unilateral primary osteoarthritis, left hip (principal); K86.2 Cyst of pancreas; M51.360 Other intervertebral disc degeneration, lumbar region with discogenic back pain only; M47.812 Spondylosis without myelopathy or radiculopathy, cervical region; R51.9 Headache, unspecified; M25.562 Pain in left knee; W06.XXXA Fall from bed, initial encounter | CPT/HCPCS: 70450; 71250; 72125; 73502; 73564; 74176 ==

== ENCOUNTER 2024-09-22 06:44 | Emergency (ER) | payer OTHER, SELFPAY ==
--- NOTE | ~2024-09-22 | XR_ITS ---
EXAMINATION: XR KNEE, LEFT CLINICAL INFORMATION: pain, fall COMPARISON: September 05, 2024. TECHNIQUE: AP, oblique, cross lateral view of the left knee. FINDINGS: No acute cortical disruption or malalignment. Joint space narrowing involving the medial and lateral compartments. Small exostosis at the anterior superior patella/quadriceps tendon insertion. No suprapatellar bursa joint effusion. No lytic or blastic lesions. No subcutaneous emphysema. XR/XR knee LT 4V IMPRESSION: No acute fracture or dislocation. Bicompartmental osteoarthrosis. Enthesopathy, quadriceps tendon. Electronically signed by: Tao Green MD 09/22/2024 08:00 AM EDT
--- NOTE | ~2024-09-22 | XR_ITS ---
EXAMINATION: XR HIP, LEFT CLINICAL INFORMATION: fall, pain COMPARISON: September 05, 2024 TECHNIQUE: AP and oblique views of the left hip. AP pelvis FINDINGS: Sclerosis along the articular surface of the acetabulum and femoral head with subchondral cyst formation and asymmetric joint space narrowing, left coxofemoral joint. No acute cortical disruption or malalignment, left hip. Total metallic right hip prosthesis not fully included in the [id number]. Intervertebral disc spacers at L5-S1. Spondylosis at L4-5. The bony pelvis is intact. XR/XR hip LT w PEL1V IMPRESSION: Moderate osteoarthrosis, left hip. No acute fracture or dislocation.. Electronically signed by: Tao Green MD 09/22/2024 07:58 AM EDT
[2024-09-22 06:54] VITALS: BP 108/78; PULSE 88; O2SAT 98; BMI 31.6
--- NOTE | 2024-09-22 07:03 | ED_ITS ---
HPI - Fall General Chief Complaint: Fall Stated Complaint: FELL ON LFT HIP Time Seen by Provider: 09/22/24 07:03 Source: patient, EMS and old records reviewed Mode of arrival: EMS Limitations: no limitations History of Present Illness ED Provider: NACHO SOTO Narrative: 54 yo female with PMH of PTSD, prolonged qTc, arthritis, diverticulitis, anxiety, depression, not on blood thinners who is planned for L THR in November with our orthopedics team. She notes she gets dizzy a lot and falls. Today she got up felt the room spinning and fell down. NO headstrike, LOC or prolonged downtime. She has pain in L hip and L knee. NO other injuries reported. MD complaint: fall Onset (ago): hour(s) (3am today) Fall from: standing Fall witnessed: no Place fall occurred: home Loss of consciousness: none Prolonged down time: no Symptoms prior to fall: none Context: tripped/slipped and history of frequent falls Location of injury: pelvis Location of injury - extremities: left: knee Severity: moderate Quality: dull and aching Associated symptoms (after fall): unable to walk Related Data Previous Rx's ?Medication ?Instructions ?Recorded duloxetine 30 mg capsule,delayed 30 mg PO DAILY 15 day s #15 caps 07/06/23 release duloxetine 60 mg capsule,delayed 60 mg PO QAM 15 days #15 caps 07/06/23 release oxcarbazepine 150 mg tablet 150 mg PO BID 15 days #30 tabs 07/06/23 oxcarbazepine 600 mg tablet 600 mg PO BID 15 days #30 tabs 07/06/23 prazosin 1 mg capsule 1 mg PO BEDTIME 15 days #15 caps 07/06/23 quetiapine 400 mg tablet 400 mg PO BEDTIME 15 days #1 5 tabs 07/06/23 benztropine 1 mg tablet 1 mg PO .QHS #30 tabs quetiapine 50 mg tablet 50 mg PO BID PRN severe anxi ety or 07/15/23 agitation 15 days #30 tabs lorazepam 0.5 mg tablet (Ativan) 1 mg (2 x 0.5 mg) PO DAILY PRN 09/27/23 anxiety 1 day #2 tabs folding cane with seat #1 ea 11/12/23 peg 3350-electrolytes 236 240 ml PO Q10M colonoscopy # 4,000 12/01/23 gram-22.74 gram-6.74 gram-5.86 mL gram solution (Golytely) acetaminophen 500 mg tablet 1,000 mg (2 x 500 mg) PO Q 6H PRN 01/12/24 (Tylenol Extra Strength) fever or pain #20 tabs clonazepam 1 mg tablet 1 mg PO BID #6 tabs 01/17/24 ergocalciferol (vitamin D2) 1,250 1,250 mcg PO QWEEK # 12 caps 02/16/24 mcg (50,000 unit) capsule (Vitamin D2) diclofenac sodium 1 % topical gel 2 g topical BID #100 grams 05/13/24 (Arthritis Pain (diclofenac)) Rollator with seat #1 ea 06/14/24 diclofenac sodium 1 % topical gel 2 g topical BID #50 grams 08/20/24 oxycodone 5 mg tablet 5 mg PO Q6H PRN pain #10 tab s 08/20/24 naproxen 500 mg tablet 500 mg PO BID PRN pain #14 t abs 09/05/24 hydrocodone 5 mg-acetaminophen 325 1 tab PO Q6H PRN pa in #10 tabs 09/22/24 mg tablet Allergies Allergy/AdvReac Type Severity Reaction Status Date / Time fentanyl (FENTANYL) Allergy Intermediate VOMITING Verified 09/22/24 06:57 Penicillins (PENICILLINS) Allergy Intermediate ANAPHYLAXIS Verified 09/22/24 06:57 sertraline (From ZOLOFT) Allergy Intermediate ANXIETY Verified 09/22/24 06:57 zolpidem (From AMBIEN) Allergy Intermediate suicidal Verified 09/22/24 06:57 attempt with zolpidem Review of Systems 2 Review of Systems: Constitutional : No Fever, No Chills ENT/Mouth : No Ear Pain, No Hoarseness, No sore throat Eyes: No Eye Pain, No Swelling, No Redness, No Foreign Body Cardiovascular : No Chest Pain, No SOB Respiratory : No Cough, No Dyspnea Gastrointestinal : No Nausea, No Vomiting, No Diarrhea, No abdominal Pain Genitourinary : No Dysuria, No Hematuria Musculoskeletal : positive joint pain, No Myalgias, No Joint Swelling Skin : No Skin lacerations, No rash Neuro : No Weakness, No Numbness, No Loss of Consciousness, pos Dizziness, No Headache All other systems reviewed and are negative [facility] Past Medical History Attestation statement: The following information was validated with the patient. Source: old records reviewed Medical History MDD (major depressive disorder), recurrent episode, moderate Frequent falls Shoulder pain, bilateral Lumbar pain Screening for cervical cancer Osteoarthritis of right knee Urinary incontinence Skin lesion Right sided abdominal pain Cervical radiculopathy Osteoarthritis of acromioclavicular joint Rotator cuff tendonitis Chronic right shoulder pain Cervical strain Polyarthralgia Carpal tunnel syndrome Bipolar disorder Depression Anxiety Hypovitaminosis D Constipation by delayed colonic transit Surgical History Hx of colonoscopy History of surgery History of right hip replacement History of hemorrhoidectomy History of bunionectomy History of cholecystectomy History of appendectomy Family History Family History Father Depression Prostate cancer Chronic mental illness Mother Diabetes Cancer Breast cancer Maternal Aunt Breast cancer Family/Other Chronic mental illness Other Mental health disorder Social History Social History Household Members: Other Household Members Other:: My dog Housing: House Alcohol intake: never Patient Tobacco Use Status: Never used Tobacco Tobacco use type: Cigarette Smoked in Last 30 Days: No e-Cigarette/Vaping Use: Never Used Second Hand Smoke Exposure: No Use of substances other than those prescribed or required for medical reasons: Yes Substance Use Type: Marijuana Advance Directives: Yes Advance Directives on File: Yes Advance Directives Date on File: 01/17/24 Patient : No service: No Current occupational status: disabled 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 Oriented X3. No acute distress. Eyes: Pupils equal, round and reactive to light. ENT: Pharynx normal. Atraumatic Neck: Normal inspection. Neck supple. CVS: Normal heart rate and rhythm. Pulses normal. Respiratory: No respiratory distress. Breath sounds normal. Abdomen: Soft and nontender. Skin: Skin warm and dry. Normal skin color. Normal skin turgor. Extremities: No lower extremity edema. L hip ttp and L knee ttp distal NV intact, no other trauma reported Neuro: Oriented X 3. No motor deficit. No sensory deficit. CN2-12 intact Medications Administered Discontinued Medications Generic Name Dose Route Start Last Admin Trade Name Lamin PRN Reason Stop Dose Admin Lactated Ringer's 1,000 mls @ 999 mls/hr 09/22/24 07:16 09/22/24 07:43 Lr IV 09/22/24 08:16 999 mls/hr .Q1H1M ONE Administration Oxycodone HCl 10 mg 09/22/24 07:16 09/22/24 07:41 Oxycodone Hcl Immed Release 5 Mg Tablet PO 09/22/24 07:17 10 mg ONCE ONE Administration Medical Decision Making Medical Decision Making [facility] Narrative: 54 yo female with PMH of PTSD, prolonged qTc, arthritis, diverticulitis, anxiety, depression, not on blood thinners now here with fall after chronic episode of vertigo - no headstrike or LOC. Patient has pain in L hip and L knee no other injuries reported. She states she feels she is dehydrated and needs an IV as well as she has not been drinking much water. No CP/SOB reported, she is neuro intact. Will obtain xrays, basic labs and hydrate. Differential Diagnosis Differential Diagnoses: The differential diagnosis associated with the presentation includes dehydration, fall, trauma, gait instability no CP/SOB to suggest ACS or VTE Admission/Observation Consideration of admission/observation: Escalation of care including admission/observation considered feels better pain controlled can follow up as outpatient Lab Data [facility] Lab Attestation statement: I reviewed the patient's lab results. normal 09/22/24 07:39 09/22/24 07:39 Labs: Lab Results 09/22/24 Range/Units 07:39 WBC 5.9 (4.8-10.8) X10*3/uL RBC 4.27 (4.20-5.50) X10*6/uL Hgb 13.2 (12.0-16.0) g/dl Hct 39.8 (37.0-47.0) % MCV 93.2 (80.0-98.0) fL MCH 30.9 (27.0-33.0) pg MCHC 33.2 (31.0-35.0) g/dl RDW 13.0 (11.0-16.0) % Plt Count 209 (160-400) X10*3/uL MPV 8.5 L (9.4-12.3) fL Immature Gran % (Auto) 0.3 (0.0-0.4) % Neut % (Auto) 49.0 (45-73) % Lymph % (Auto) 38.5 (20-40) % [place] % (Auto) 7.3 (2-11) % Eos % (Auto) 4.2 H (0-4) % Baso % (Auto) 0.7 (0-2) % Lymph # (Auto) 2.3 (1.2-4.9) X10*3/uL [place] # (Auto) 0.4 (0.1-1.2) X10*3/uL Eos # (Auto) 0.3 (0.0-0.4) X10*3/uL Baso # (Auto) 0.0 (0.0-0.2) X10*3/uL Abs Immat Gran (auto) 0.02 (0.00-0.03) X10*3/uL Absolute Neuts (auto) 2.9 (2.0-8.3) x10*3/uL Absolute Nucleated RBC 0.000 (0.0-0.012) X10*3/uL Nucleated RBC % (auto) 0.0 (0.0-0.2) /100WBC Sodium 140 (135-145) mmol/L Potassium 4.1 (3.3-5.1) mmol/L Chloride 108 (96-108) mmol/L Carbon Dioxide 27 (22-29) mmol/L Anion Gap 9 L (12-20) BUN 10 (9-16) mg/dL Creatinine 0.81 (0.5-1.4) mg/dL Estim Creat Clear Calc 84.1 Estimated GFR > 60 Random Glucose 83 (60-115) mg/dL Calcium 9.4 (8.4-10.2) mg/dL Independent Interpretation I performed an independent interpretation of an: Plain X-Ray (no fracture) Radiology Impression Discussion of test interpretation with radiology: I have reviewed the radiologist's reading. Independent Historian Clinical information obtained from an independent historian. History obtained from or confirmed by: EMS External Record Review External record reviewed: Inpatient record and Outpatient record Prescription Management I considered prescription management with: Pain Medication and Other Discharge Plan Discharge Clinical Impression: Hip strain, Arthralgia of knee, left Patient Disposition: Home, Self-Care Instructions: Knee Pain (ED), Arthralgia (ED) Additional Instructions: xrays show no broken bones labs normal and reassuring rest and stay hydrated call orthopedic office given your complaints and symptoms return for any worsening symptoms or concerns Prescriptions: New hydrocodone-acetaminophen 5-325 mg tablet 1 tab PO Q6H PRN (Reason: pain) Qty: 10 0RF Rx Instructions: partial fill okay; Partial Fill upon patient request. No Action (DME) Rollator with seat See Rx Instructions .Route .MEDSUPPLY Qty: 1 0RF Rx Instructions: As directed oxcarbazepine 150 mg tablet 150 mg PO BID 15 Days Qty: 30 1RF prazosin 1 mg capsule 1 mg PO BEDTIME 15 Days Qty: 15 1RF oxcarbazepine 600 mg tablet 600 mg PO BID 15 Days Qty: 30 1RF duloxetine 60 mg capsule,delayed release(DR/EC) 60 mg PO QAM 15 Days Qty: 15 1RF quetiapine 400 mg tablet 400 mg PO BEDTIME 15 Days Qty: 15 0RF duloxetine 30 mg capsule,delayed release(DR/EC) 30 mg PO DAILY 15 Days Qty: 15 1RF benztropine 1 mg tablet 1 mg PO .QHS Qty: 30 0RF quetiapine 50 mg tablet 50 mg PO BID PRN (Reason: severe anxiety or agitation) 15 Days Qty: 30 1RF clonazepam 1 mg tablet 1 mg PO BID Qty: 6 0RF diclofenac sodium 1 % gel 2 g topical BID Qty: 50 0RF Rx Instructions: apply to hip and knee oxycodone 5 mg tablet 5 mg PO Q6H PRN (Reason: pain) Qty: 10 0RF Rx Instructions: Partial Fill upon patient request. acetaminophen [Tylenol Extra Strength] 500 mg tablet 1,000 mg PO Q6H PRN (Reason: fever or pain) Qty: 20 0RF diclofenac sodium [Arthritis Pain (diclofenac)] 1 % gel 2 g topical BID Qty: 100 0RF Rx Instructions: apply to joint as needed for pain naproxen 500 mg tablet 500 mg PO BID PRN (Reason: pain) Qty: 14 0RF lorazepam [Ativan] 0.5 mg tablet 1 mg PO DAILY PRN (Reason: anxiety) 1 Days Qty: 2 0RF Rx Instructions: Take 45 minutes before MRI. (DME) folding cane with seat See Rx Instructions .Route .MEDSUPPLY Qty: 1 0RF Rx Instructions: As directed ergocalciferol (vitamin D2) [Vitamin D2] 1,250 mcg (50,000 unit) capsule 1,250 mcg PO QWEEK Qty: 12 0RF peg 3350-electrolytes [Golytely] 236-22.74-6.74 -5.86 gram recon soln 240 ml PO Q10M Qty: 4000 0RF Rx Instructions: as per split prep instructions, until fecal effluent is clear Print Language: Danish
[2024-09-22] MEDS: oxyCODONE HCl Immed Release 5 MG TABLET 10 MG PO (07:41)
[2024-09-22 07:42] LABS: MANUAL DIFF FLAG NO
[2024-09-22] MEDS: Lactated Ringers 1,000 ML 999 ML IV (07:43)
[2024-09-22 07:46] LABS: Hematocrit 39.8 % (37.0-47.0); Hemoglobin 13.2 g/dl (12.0-16.0); Imm Gran Abs Auto 0.02 X10*3/uL (0.00-0.03); Imm Gran Pct Auto 0.3 % (0.0-0.4); Lymphocytes Absolute Auto 2.3 X10*3/uL (1.2-4.9); Mean Corpuscular HGB Conc 33.2 g/dl (31.0-35.0); Mean Corpuscular Hemoglobin 30.9 pg (27.0-33.0); Mean Corpuscular Volume 93.2 fL (80.0-98.0); NRBC Abs Auto 0.000 X10*3/uL (0.0-0.012); NRBC Pct Auto 0.0 /100WBC (0.0-0.2); Platelet Count 209 X10*3/uL (160-400); Red Blood Count 4.27 X10*6/uL (4.20-5.50); White Blood Count 5.9 X10*3/uL (4.8-10.8)
--- OUTSIDE RECORDS SUMMARY | 2024-09-22 07:48 | XMS_ITS | Clinical Summary ---
Author Organization [facility] Address [address] [place] [address] Care Team Providers Care Oil Program Compliance Specialist Name Role Phone Unavailable Primary Care Provider Unavailabl e Immunizations Immunization Administration Dates Next Due Moderna Covid-19 Vaccine [...] Screening 1968 SDOH Screening 1968 Sigmoidoscopy 1968 Disability Screening 1968 Alcohol/Substance Use Screening 1980 Tobacco Screening [...] 03/04/2021, Additional history exists Influenza Vaccine (#1) 2024 , 04/02/2020, 02/21/2019, Additional history exists DTaP/Tdap/Td [...] patient's age to complete this topic Insurance [facility] STANDARD [facility] ADV
--- OUTSIDE RECORDS SUMMARY | 2024-09-22 07:48 | XMS_ITS | Clinical Summary ---
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 240 g 1 5 10/28/19 25 Active Encounters Date Type Department Care Team Description 08/28/2024 2:00 PM EDT Office Visit Orthopedic [facility] [address] [phone] Mateo Weathers DPM Sesamoiditis of left foot (Primary Dx); Dermatofibroma of left lower leg; Acquired hammer toe of right foot; Hammer toe of left foot; Acquired hallux valgus of right foot 06/28/2024 2:15 PM EDT Office Visit Orthopedic [facility] [address] [phone] Mateo Weathers DPM Dermatophytosis of nail (Primary [...] Care Team (Late st Contact Info) Description 10/11/2024 10:30 AM EDT Office Visit Orthopedic Surgery - [place] [address] [phone] Mateo Weathers, DPJuventino [address] [address] Health Maintenance Due Date Last Done Comments Breast Cancer Screening 1968 Hepatitis B Vaccines (1 of 3 - 19+ 3-dose series) 01/13/1987 Pneumococcal Vaccine: 50+ Years (1 of 2 - PCV) 01/13/1987 Pneumococcal Vaccine: Pediatrics (0 to 5 Years) and At-Risk Patients (6 to 49 Years) (1 of 2 - PCV) 01/13/1987 Zoster Vaccines (1 of 2) 01/13/1987 Cervical Cancer Screening: Pap Smear 01/13/1989 COVID-19 Vaccine ( season) 2023 12/29/2022, 03/25/2022, 03/04/2021, Additional history exists Colorectal Cancer Screening: Colonoscopy 01/18/2024 Depression Screening 01/18/2024 HIV Screening 01/18/2024 Hepatitis C Screening 01/18/2024 Social Influencers of Health Screening 01/18/2024 Influenza Vaccine (#1) 2024 , 04/02/2020, 02/21/2019, Additional history exists DTaP,Tdap,and Td [...] patient's age to complete this topic Insurance [facility] Member Subscriber Plan / Payer (Ef fective 2016-Present) Name:MELINDA KOENIG Relation to Subscriber:Self Name:Mary Funk Melinda Renée Payer ID:[id number] Group ID:[id number] Type:Not on file Address: [facility] [address] [phone] MEDICAID - [place] Care Teams Steam Power Plant Operator Relationship Specialty Start Date End Date Valarie Akbar MD [address] [place] [address] , [address] [facility] D/B/A: [facility] PCP - General Internal Medicine 02/18/24
--- OUTSIDE RECORDS SUMMARY | 2024-09-22 07:48 | XMS_ITS | Data Portability ---
Author Organization [facility], Main Office Address [address], [address] [place] [address] Care Team Providers Care Staff Services Manager Name Role Phone KARL HARPER - 2ND FLOOR OTHER AMELIE LEDESMA Primary Care Provider Assessment No assessment recorded. Plan of Treatment [...] Recorded Time Pain in left lower limb [id number] Active 2023 OLESYA MARTINEZ NP [address], [address], [place], [address], [facility] 4 12:26:33 Asthenia 84734241 Active 2023 OLESYA MARTINEZ NP [address], [address], [place], [address], [facility] 4 12:26:40 Recurrent falls 447229380 Active 2023 OLESYA MARTINEZ NP [address], [address], [place], [address], [facility] 4 12:26:58 Major depressive disorder 379448336 Active 2023 OLESYA MARTINEZ NP [address], [address], [place], [address], [facility] 4 12:27:07 Anxiety 56700774 Active 2023 OLESYA MARTINEZ NP [address], [address], [place], [address], [facility] 4 12:27:14 Bipolar disorder 91160349 Active 2023 OLESYA MARTINEZ NP [address], [address], [place], [address], [facility] 4 12:27:21 Fibromyalgia 954518488 Active 2023 OLESYA MARTINEZ NP [address], [address], [place], [address], [facility] 4 12:27:33 Posttraumatic stress disorder 51364436 Active 2023 OLESYA MARTINEZ NP [address], [address], [place], [address], [facility] 4 12:27:39 Urinary incontinence 110907720 Active 2023 OLESYA MARTINEZ NP [address], [address], [place], [address], [facility] 4 12:29:15 Osteoarthritis 499275183 Active 2023 OLESYA MARTINEZ NP [address], [address], [place], [address], [facility] 4 12:29:20 Carpal tunnel syndrome 78577564 Active 2023 OLESYA MARTINEZ NP [address], [address], [place], [address], [facility] 4 12:29:48 Vitamin D deficiency 31906897 Active 2023 OLESYA MARTINEZ NP [address], [address], [place], [address], [facility] 4 12:29:58 Constipation 57172514 Active 2023 OLESYA MARTINEZ NP [address], [place], [address], [facility] 4 12:30:10 Problem Notes None recorded. Medical Equipment None Reported. Allergies Allergen ID Allergen Name Allergen Category Reaction Reaction Severity Criticality Documentation Date Start Date Code Code System Note Provider Name and Address Organization Details Recorded Time 48185 fentanyl medicatio n Not available Not available Not available 01/18/2024 4337 RxNorm vomit ing OLESYA MARTINEZ NP [address] [facility], [address], [place], [address], [facility] 4 12:11:38 27543 Product containin g penicilli n (product) medicatio n Not available Not available Not available 01/18/2024 89975 8001 SNOMED anaph ylaxi s OLESYA MARTINEZ NP [address] [facility], [address], [place], [address], [facility] 4 12:12:12 13095 Zoloft medicatio n Not available Not available Not available 01/18/2024 06539 RxNorm anxie ty OLESYA MARTINEZ NP [address] [facility], [address], [place], [address], [facility] 4 12:12:28 10088 Ambien medicatio n Not available Not available Not available 01/18/2024 95484 5 RxNorm suici jazmyn attem pt OLESYA MARTINEZ NP [address] [facility], [address], [place], [address], [facility] 4 12:12:44 Vitals Date Recorded Heart rate Respiratory rate Body temperature Oxygen saturation Oxygen saturation in Arterial blood by Pulse oximetry Systolic And Diastolic Provider Name and Address Organization Details Last Updated DateTime 4 82 /min 18 /min 98 [degF] 99 % 99 % 132/75 mm[Hg] OLESYA MARTINEZ NP [address] [facility], [address], [place], [address], [facility] 4 12:08:28 Social History Question Answer Notes LastModified by Organizat ion Details LastModified Time Tobacco Smoking Status Never Smoker OLESYA MARTINEZ NP [address] [facility], [place], [address], [facility] 01/18/2024 12:34:28 Do You Have An Advance Directive? Yes Information not available 01/18/2024 What Is Your Code Status? Full Code Information not available 01/18/2024 Which Illicit Or Recreational Drugs Have You Used? Cannabis For Pain Mgmt. [email or web address] Information not available 01/18/2024 Where Do You Live? [address] Lives With Dog. Sister Nearby, Supportive . [employer] 28 Hrs/wk Information not available 01/18/2024 Do You Have A Medical Power Of Ballistics Teacher? Yes Has HCP [email or web address] Information not available 01/18/2024 What Was The Date Of Your Most Recent Tobacco Screening? 01/18/2024 [email or web address] Information not available 01/18/2024 Do You Have An Out Of Hospital DNR? Yes [email or web address] Information not available 01/18/2024 Have You Used IV Drugs? No Information not available 01/18/2024 Sex: Unknown Functional Status Question Answer Note LastModified by Organizat ion Details LastModified Time Do you use any illicit or recreational drugs? Yes [email or web address] Information not available 01/18/2024 Do you or have you ever used any other forms of tobacco or nicotine? No Information not available 01/18/2024 What is your level of alcohol consumption? None [email or web address] Information not available 01/18/2024 Mental Status None recorded. Family History Relationship Description Onset Age of this Age Resolved Age Notes LastModified by Organization Details LastModified Time Father Depressive disorder Not available 2023 12:32:30 Father Mental disorder Not available 2023 12:32:51 Mother Diabetes mellitus [email or web address] Not available 2023 12:33:28 Mother Malignant tumor of breast [email or web address] Not available 2023 12:33:40 Medical History No medical history recorded. Gynecological HistoryNo gynecological history recorded. Obstetrics History GPAL:G 0 P 0 0 0 0 Immunizations Vaccine Type Date Status Note Provider Farhad lopez and Address Organization Details Recorded Time Tdap 07/29/2018 completed Ananya Carvajal [facility] 01/20/2024 16:39:53 Td(adult) unspecified formulation 07/06/2017 completed Ananya Carvajal [facility] 01/20/2024 16:40:06 SARS-COV-2 (COVID-19) vaccine, UNSPECIFIED 07/18/2020 completed Ananya Carvajal [facility] 01/20/2024 16:40:50 SARS-COV-2 (COVID-19) vaccine, UNSPECIFIED 08/15/2020 completed Annaya Carvajal [facility] 01/20/2024 16:40:57 SARS-COV-2 (COVID-19) vaccine, UNSPECIFIED 03/04/2021 completed Ananya [facility] 01/20/2024 16:41:06 SARS-COV-2 (COVID-19) vaccine, UNSPECIFIED 03/25/2022 completed Ananya [facility] 01/20/2024 16:41:16 SARS-COV-2 (COVID-19) vaccine, UNSPECIFIED 12/29/2022 completed Ananya [facility] 01/20/2024 16:41:24 Past Encounters Encounter ID Performer Location Encounter Start Date Encounter Closed Date Diagnosis/Indication Diagnosis SNOMED-CT Code Diagnosis ICD10 Code Diagnosis Note [id number] OLESYA MARTINEZ NP [facility] [address] [place] [address] 01/18/2024 12:07:38 01/19/2024 10:19:11 Pain in left lower limb 256266125 M79.605 with hx. of recurrent fallsMSIR 15 [...] and txRefer to PMR as well. Asthenia [id number] R53.1 PT OT eval and tx.Gait instabilit y due left bunion/megan lous which in turn contribute s to L hip/LE painManage pain as aboveRefer to PMRGoal is to return home. Bipolar disorder [id number] 4 F31.9 anxiety, depression , complicate d [...] med mgmt.Monit or mood and behaviors Fibromyalgia 956327993 M 79.7 Continue home meds:cyclo benzaprine 5 mg tid prnAPAP 1000 mg q 6 hr prnIbuprof en 800 mg tid, and 400 mg tid prnduloxet ine 60 mg q am, 30 mg q aft. and hsPT OT eval and tx.Refer to in house PMR Constipation [id number] K5 9.00 Not on meds at this time, monitor need leonarda. with use of MSO4 Vitamin D deficiency 347 83585 E55.9 Vit D 01191 units q week Health Concerns Section Related Observation LastModified by Organization Detai ls LastModified Time None Recorded Concern Status LastModified by Organization Details LastModified Time None Recorded Advance Directives Directive Y: Payers Insurance Date Sequence Insurance Name Policy Number Policy Grier Covered Member ID Grier Member ID Guarantor Name 01/19/2024 1 [facility] - DOS ON OR AFTER 2022 - MEDICARE ADVANTAGE [place] (MEDICARE REPLACEMENT/ADV ANTAGE - PPO) Cathy Mary Funk [id number] Cathy Funk Notes Date Note Type Note Provider Name and Address Organization Details Recorded Time 01/18/2024 text/html Cathy is seen t krista for initial intake. She is a 54 yo lady admitted to [facility] 01/17/[address] [facility] for continued care and rehab due to weakness and pain. She presented to [facility] with left sided pain x 1 month [...] the side of the bed for exam. social work manager present. She says she had a horrible [...] tunnel, constipationFull code OLESYA MARTINEZ NP [address] [facility], [place], [address], [facility] 01/18/2024 13:17:48 OBGyn Episode No OBEpisode recorded.
[2024-09-22 07:55] LABS: Anion Gap 9 (12-20); Blood Urea Nitrogen 10 mg/dL (9-16); Calcium 9.4 mg/dL (8.4-10.2); Carbon Dioxide 27 mmol/L (22-29); Chloride 108 mmol/L (96-108); Creatinine Clr Calc Pharmacy 84.1; Estimated Glomerular Filt Rate > 60; Potassium 4.1 mmol/L (3.3-5.1); Sodium 140 mmol/L (135-145)
[2024-09-22 10:39] VITALS: BP 0/0; PULSE 0; RESP 0; TEMP -17.7; TEMP 0; O2SAT 0
== END 2024-09-22 10:42 | disposition home or self-care (01) ==
PROVIDERS: Emergency Provider Emergency Medicine; PCP Internal Medicine
DX: S76.012A Strain of muscle, fascia and tendon of left hip, initial encounter (principal); W18.39XA Other fall on same level, initial encounter; M25.552 Pain in left hip; M25.562 Pain in left knee; Z91.81 History of falling; Y93.89 Activity, other specified; Y92.039 Unspecified place in apartment as the place of occurrence of the external cause; Y99.9 Unspecified external cause status
CPT/HCPCS: 36415; 73502; 73564; 80048; 85025; 96360; 96361; 99284; J7120

== ENCOUNTER → 2024-09-22 06:55 | Outpatient (BNV) | payer OTHER, SELFPAY | PROVIDERS: Emergency Provider Emergency Medicine; PCP Internal Medicine; Visit Provider Radiology Diagnostic Radiology | DX: M76.892 Other specified enthesopathies of left lower limb, excluding foot (principal); M25.562 Pain in left knee; M25.552 Pain in left hip | CPT/HCPCS: 73502; 73564 ==

== ENCOUNTER 2024-10-03 14:40 | Outpatient (AMB) | payer OTHER, SELFPAY ==
--- NOTE | 2024-10-03 14:47 | A.OFFPC_ITS ---
Vital Signs 10/03/24 14:48 Height 5 ft 5 in Weight 201 lb BMI 33.4 BP 110/68 Blood Pressure Location Lt brachial Position Sitting Intake Visit Reasons: [facility] 09/22 Fall Intake Note: Patient here for [facility] ED follow up due to fall, requesting PSSP, pain med Hotel Valet Attendant Required: No Accompanied by: Self / Same As Patient Allergies fentanyl (FENTANYL) Allergy (Intermediate, Verified 10/03/24 15:08) VOMITING Penicillins (PENICILLINS) Allergy (Intermediate, Verified 10/03/24 15:08) ANAPHYLAXIS sertraline (From ZOLOFT) Allergy (Intermediate, Verified 10/03/24 15:08) ANXIETY zolpidem (From AMBIEN) Allergy (Intermediate, Verified 10/03/24 15:08) suicidal attempt with zolpidem Medication List - Last Reconciled 10/03/24 by Valarie Akbar MD acetaminophen (Tylenol Extra Strength) 1,000 mg (2 x 500 mg) PO Q6H PRN benztropine 1 mg PO .QHS clonazepam 1 mg PO BID diclofenac sodium 1% (Arthritis Pain (diclofenac)) 2 grams topical BID diclofenac sodium 1% 2 grams topical BID duloxetine 60 mg PO QAM 15 days duloxetine 30 mg PO DAILY 15 days ergocalciferol (vitamin D2) (Vitamin D2) 1,250 mcg PO QWEEK [folding cane with seat As directed] hydrocodone-acetaminophen 5-325 mg 1 tab PO Q6H PRN lorazepam (Ativan) 1 mg (2 x 0.5 mg) PO DAILY PRN 1 day naproxen 500 mg PO BID PRN oxcarbazepine 150 mg PO BID 15 days oxcarbazepine 600 mg PO BID 15 days oxycodone 5 mg PO Q6H PRN peg 3350-electrolytes 236-22.74-6.74 -5.86 gram (Golytely) 240 mL PO Q10M prazosin 1 mg PO BEDTIME 15 days quetiapine 400 mg PO BEDTIME 15 days quetiapine 50 mg PO BID PRN 15 days [Rollator with seat As directed] Tobacco use date assessed: 09/01/24 Dental Screening Dental Screen Date: 09/01/24 HPI HPI Comments History of Present Illness Details The patient is a 54-year-old female presenting with osteoarthritis and hospital discharge follow-up evaluation following multiple falls. The patient has a history of osteoarthritis affecting both the knee and hip, which has significantly impacted her mobility. She reports that she is unable to walk without assistance and typically uses a walker, although she arrived with a cane due to transportation constraints. The osteoarthritis has been managed conservatively, but the patient reports persistent pain and difficulty with ambulation. The patient experienced multiple falls, one of which occurred on the stairs, leading to an emergency room visit. She reports no fractures but has sustained injuries that exacerbate her existing joint pain. The falls have been attributed to instability and difficulty supporting weight on her left side. The patient also reports a history of dehydration, which was noted during a recent emergency room visit. She describes feeling very dry and having difficulty finding veins for IV access. Had abnormal EKG with ST changes and this will be repeated. Complains of chest pain on exertion. Additionally, the patient has a history of bipolar disorder follow by Psychiatry and well controlled with medications. [facility] Medical History (Updated 10/03/24 @ 15:27 by Valarie Akbar MD) MDD (major depressive disorder), recurrent episode, moderate Frequent falls Shoulder pain, bilateral Lumbar pain Screening for cervical cancer Osteoarthritis of right knee Urinary incontinence Skin lesion Right sided abdominal pain Cervical radiculopathy Osteoarthritis of acromioclavicular joint Rotator cuff tendonitis Chronic right shoulder pain Cervical strain Polyarthralgia Carpal tunnel syndrome Bipolar disorder Depression Anxiety Hypovitaminosis D Constipation by delayed colonic transit Surgical History Hx of colonoscopy History of surgery History of right hip replacement History of hemorrhoidectomy History of bunionectomy History of cholecystectomy History of appendectomy Family History Father Depression Prostate cancer Chronic mental illness Mother Diabetes Cancer Breast cancer Maternal Aunt Breast cancer Family/Other Chronic mental illness Other Mental health disorder Social History Household Members: Other Household Members Other:: My dog Housing: House Alcohol intake: never Patient Tobacco Use Status: Never used Tobacco e-Cigarette/Vaping Use: Never Used Second Hand Smoke Exposure: No Substance Use Type: Marijuana Advance Directives Date on File: 01/17/24 service: No Current occupational status: disabled 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 Cognitive needs: No Hearing needs: No Vision needs: Yes (glasses) Questionnaire Thrive Questionnaire Date Thrive assessed: 09/01/24 I am a: Patient What is your living situation today?: I have a steady place to live Within the past 12 months, did the food you bought not last and you didn't have the money to get more?: Sometimes True Within the past 12 months, did you worry whether your food would run out before you got money to buy more?: Often true Do you have trouble paying for medicines?: No Do you have trouble getting transportation to medical appointments?: No Do you have trouble paying your heating and electricity bill?: Yes Do you have trouble taking care of your child, family member or friend?: No Do you have trouble with day-to-day activities such as bathing, preparing meals, shopping, managing finances, etc.?: Yes Are you currently unemployed and looking for a job?: No Are you interested in more education?: No Please select the resources that you would like help with: Food THRIVE Score: 3 DAVID-7 AMB Questionnaire DAVID-7 Date DAVID - 7 assessed: 09/01/24 Source: Developed by Drs. Tai Romero, Rochelle London, Renny Scales and colleagues, with an educational emily from [employer]. Review of Systems Const All systems reviewed & are unremarkable except as noted in HPI and below Card Denies chest pain at rest, Denies chest pain with activity, Denies edema, Denies irregular heart rhythm, Denies claudication, Denies dyspnea, Denies dyspnea on exertion, Denies orthopnea, Denies paroxysmal nocturnal dyspnea and Denies slow heart rate Resp Denies cough, Denies dyspnea and Denies dyspnea on exertion GI Denies abdominal pain, Denies change in bowel habits, Denies excessive flatus, Denies nausea and Denies vomiting Denies urinary incontinence, Denies urinary hesitancy and Denies urinary urgency Musc Denies abnormal gait, Denies atrophy, Denies deformity and Denies limited range of motion Skin/Breast Denies bleeding lesions, Denies changing lesions and Denies rash Neuro Denies abnormal gait and Denies lack of coordination Physical exam (Primary Care) Vital Signs: Last Vital Signs BP 110/68 10/03/24 14:48 BMI result Body Mass Index 33.4 BMI Assessment/Plan discussion: High BMI High, discussed plan: lifestyle, weight reduction, dietary and physical activity Tobacco/Smoking Status: Tobacco use Status Tobacco use date assessed 09/01/24 10/03/24 14:49 Patient Tobacco Use Status Never used Tobacco 10/03/24 14:49 Tobacco use type 10/03/24 14:59 e-Cigarette/Vaping Use Never Used 10/03/24 14:49 Thrive Assessment: Date of Thrive Assessment Date Thrive assessed 09/01/24 10/03/24 14:49 Resp Effort & Inspection: normal respiratory effort Auscultation: clear to auscultation bilaterally Cardio Jugular venous distension: no JVD Rate: regular rate Rhythm: regular rhythm Heart sounds: S1 normal heart sound present and S2 normal heart sound present Extrem General: Yes full ROM Coding Level of Care Code Est Pt Level 4 (95170) Complex EM visit Add On G2211 Diagnoses Hospital discharge follow-up Z09 Bipolar affective, depress, mod F31.32 Abnormal EKG R94.31 Osteoarthritis of left hip M16.12 Arthralgia of knee, left M25.562 Mild major depression F32.0 Time Spent (min) 20 Assessment & Plan Assessment & Plan (1) Hospital discharge follow-up: Code(s): Z09 - Encounter for follow-up examination after completed treatment for conditions other than malignant neoplasm Category: Medical (2) Bipolar affective, depress, mod: Code(s): F31.32 - Bipolar disorder, current episode depressed, moderate Category: Medical (3) Abnormal EKG: Code(s): R94.31 - Abnormal electrocardiogram [ECG] [EKG] Category: Medical (4) Osteoarthritis of left hip: Code(s): M16.12 - Unilateral primary osteoarthritis, left hip Category: Medical (5) Arthralgia of knee, left: Code(s): M25.562 - Pain in left knee Category: Medical (6) Mild major depression: Code(s): F32.0 - Major depressive disorder, single episode, mild Category: Medical Plan The patient will be referred to orthopedics for further evaluation and management of her osteoarthritis and fall-related injuries. A follow-up appointment is scheduled with her surgeon to discuss the upcoming surgery for her hip and knee. The patient is advised to continue using a walker for stability and to avoid further falls. The patient is encouraged to maintain hydration to prevent further episodes of dehydration. She is also advised to follow up with her psychiatrist to ensure proper management of her bipolar disorder, especially considering the previous issues with medication provision. Patient was informed and verbally consented to the use of an ambient scribe for clinic note documentation during this visit. Orders: Orders ECG 12 lead EKG Today R94.31 - Abnormal electrocardiogram [ECG] [EKG]
[2024-10-03 14:48] VITALS: BP 110/68; BMI 33.4
--- OUTSIDE RECORDS SUMMARY | 2024-10-03 15:51 | XMS_ITS | Data Portability ---
Author Organization [facility], Main Office Address [address], [address] [place] [address] Care Team Providers Care Spanish Interpreter Name Role Phone KARL HARPER - 2ND [...] Recorded Time Pain in left lower limb 028500638 Active 2023 OLESYA MARTINEZ NP [address], [address], [place], [address], [facility] 4 12:26:33 Asthenia 80587083 Active 2023 OLESYA MARTINEZ NP [address], [address], [place], [address], [facility] 4 12:26:40 Recurrent falls 822853169 Active 2023 OLESYA MARTINEZ NP [address], [address], [place], [address], [facility] 4 12:26:58 Major depressive disorder 434334706 Active 2023 OLESYA MARTINEZ NP [address], [address], [place], [address], [facility] 4 12:27:07 Anxiety 71733542 Active 2023 OLESYA MARTINEZ NP [address], [address], [place], [address], [facility] 4 12:27:14 Bipolar disorder 33492547 Active 2023 OLESYA MARTINEZ NP [address], [address], [place], [address], [facility] 4 12:27:21 Fibromyalgia 908984588 Active 2023 OLESYA MARTINEZ NP [address], [address], [place], [address], [facility] 4 12:27:33 Posttraumatic stress disorder 28294064 Active 2023 OLESYA MARTINEZ NP [address], [address], [place], [address], [facility] 4 12:27:39 Urinary incontinence 485863634 Active 2023 OLESYA MARTINEZ NP [address], [address], [place], [address], [facility] 4 12:29:15 Osteoarthritis 711898283 Active 2023 OLESYA MARTINEZ NP [address], [address], [place], [address], [facility] 4 12:29:20 Carpal tunnel syndrome 95712210 Active 2023 OLESYA MARTINEZ NP [address], [address], [place], [address], [facility] 4 12:29:48 Vitamin D deficiency 40641245 Active 2023 OLESYA MARTINEZ NP [address], [address], [place], [address], [facility] 4 12:29:58 Constipation 70600219 Active 2023 OLESYA MARTINEZ NP [address], [address], [place], [address], [facility] 4 12:30:10 Problem Notes None recorded. Medical Equipment None Reported. Allergies Allergen ID Allergen Name Allergen Category Reaction Reaction Severity Criticality Documentation Date Start Date Code Code System Note Provider Name and Address Organization Details Recorded Time 63495 fentanyl medicatio n Not available Not available Not available 01/18/2024 4337 RxNorm vomit ing OLESYA MARTINEZ NP [address] [facility], [address], [place], [address], [facility] 4 12:11:38 30716 Product containin g penicilli n (product) medicatio n Not available Not available Not available 01/18/2024 77728 8001 SNOMED anaph ylaxi s OLESYA MARTINEZ NP [address] [facility], [address], [place], [address], [facility] 4 12:12:12 24376 Zoloft medicatio n Not available Not available Not available 01/18/2024 13184 RxNorm anxie ty OLESYA MARTINEZ NP [address] [facility], [address], [place], [address], [facility] 4 12:12:28 76496 Ambien medicatio n Not available Not available Not available 01/18/2024 98812 5 RxNorm suici jazmyn attem pt OLESYA MARTINEZ NP [address] [facility], [address], [place], [address], [facility] 4 12:12:44 Vitals Date Recorded Heart rate Respiratory rate Body temperature Oxygen saturation Oxygen saturation in Arterial blood by Pulse oximetry Systolic And Diastolic Provider Name and Address Organization Details Last Updated DateTime 4 82 /min 18 /min 98 [degF] 99 % 99 % 132/75 mm[Hg] OLESYA MARTINEZ NP [address] [facility], [address], [place], [address], [facility] 4 12:08:28 Social History Question Answer Notes LastModified by Organizat ion Details LastModified Time Tobacco Smoking Status Never Smoker OLESYA MARTINEZ NP [address] [facility], [address], [place], [address], [facility] 01/18/2024 12:34:28 Do You Have An Advance Directive? Yes [email or web address] Information not available 01/18/2024 What Is Your Code Status? Full Code [email or web address] Information not available 01/18/2024 Which Illicit Or Recreational Drugs Have You Used? Cannabis For Pain Mgmt. [email or web address] Information not available 01/18/2024 Where Do You Live? [address]ment [address] Lives With Dog. Sister Nearby, Supportive . 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 01/18/2024 [email or web address] Information not available 01/18/2024 Do You Have An Out Of Hospital DNR? Yes [email or web address] Information not available 01/18/2024 Have You Used IV Drugs? No [email or web address] Information not available 01/18/2024 Sex: Unknown Functional Status Question Answer Note LastModified by Organizat ion Details LastModified Time Do you use any illicit or recreational drugs? Yes [email or web address] Information not available 01/18/2024 Do you or have you ever used any other forms of tobacco or nicotine? No [email or web address] Information not available 01/18/2024 What is your level of alcohol consumption? None [email or web address] Information not available 01/18/2024 Mental Status None recorded. Family History Relationship Description Onset Age of this Age Resolved Age Notes LastModified by Organization Details LastModified Time Father Depressive disorder [email or web address] Not available 2023 12:32:30 Father Mental disorder [email or web address] Not available 2023 12:32:51 Mother Diabetes mellitus [email or web address] Not available 2023 12:33:28 Mother Malignant tumor of breast [email or web address] Not available 2023 12:33:40 Medical History No medical history recorded. Gynecological HistoryNo gynecological history recorded. Obstetrics History GPAL:G 0 P 0 0 0 0 Immunizations Vaccine Type Date Status Note Provider Farhad lopez and Address Organization Details Recorded Time Tdap 07/29/2018 completed Ananya Carvajal [facility] 01/20/2024 16:39:53 Td(adult) unspecified formulation 07/06/2017 completed Ananya Carvajal [facility] 01/20/2024 16:40:06 SARS-COV-2 (COVID-19) vaccine, UNSPECIFIED 07/18/2020 completed Ananya Carvajal [facility] 01/20/2024 16:40:50 SARS-COV-2 (COVID-19) vaccine, UNSPECIFIED 08/15/2020 completed Ananya Carvajal [facility] 01/20/2024 16:40:57 SARS-COV-2 (COVID-19) vaccine, UNSPECIFIED 03/04/2021 completed Ananya [facility] 01/20/2024 16:41:06 SARS-COV-2 (COVID-19) vaccine, UNSPECIFIED 03/25/2022 completed Ananya [facility] 01/20/2024 16:41:16 SARS-COV-2 (COVID-19) vaccine, UNSPECIFIED 12/29/2022 completed Ananya [facility] 01/20/2024 16:41:24 Past Encounters Encounter ID Performer Location Encounter Start Date Encounter Closed Date Diagnosis/Indication Diagnosis SNOMED-CT Code Diagnosis ICD10 Code Diagnosis Note [id number] OLESYA MARTINEZ NP [facility] [address] [place] [address] 01/18/2024 12:07:38 01/19/2024 10:19:11 Pain in left lower limb 903074089 M79.605 with hx. of recurrent fallsMSIR 15 [...] and txRefer to PMR as well. Asthenia 58262607 R53.1 PT OT eval and tx.Gait instabilit y due left bunion/megan lous which in turn contribute s to L hip/LE painManage pain as aboveRefer to PMRGoal is to return home. Bipolar disorder 0567511 4 F31.9 anxiety, depression , complicate d [...] med mgmt.Monit or mood and behaviors Fibromyalgia 495257105 M 79.7 Continue home meds:cyclo benzaprine 5 mg tid prnAPAP 1000 mg q 6 hr prnIbuprof en 800 mg tid, and 400 mg tid prnduloxet ine 60 mg q am, 30 mg q aft. and hsPT OT eval and tx.Refer to in house PMR Constipation 06513022 K5 9.00 Not on meds at this time, monitor need leonarda. with use of MSO4 Vitamin D deficiency 347 59295 E55.9 Vit D 89466 units q week Health Concerns Section Related Observation LastModified by Organization Detai ls LastModified Time None Recorded Concern Status LastModified by Organization Details LastModified Time None Recorded Advance Directives Directive Y: Payers Insurance Date Sequence Insurance Name Policy Number Policy Grier Covered Member ID Grier Member ID Guarantor Name 01/19/2024 1 [facility] - DOS ON OR AFTER 2022 - MEDICARE ADVANTAGE [place] (MEDICARE REPLACEMENT/ADV ANTAGE - PPO) Cathy Mary Funk [id number] Cathy Funk Notes Date Note Type Note Provider Name and Address Organization Details Recorded Time 01/18/2024 text/html Cathy is seen t krista for initial intake. She is a 54 yo lady admitted to [facility] 01/17/24 from [facility] for continued care and rehab due to weakness and pain. She presented [place] [facility] with left sided pain x 1 month [...] the side of the bed for exam. solar resource assessor present. She says she had a horrible [...] tunnel, constipationFull code OLESYA MARTINEZ NP [address] [facility], [address], [place], [address], [facility] [employer] 01/18/2024 13:17:48 OBGyn Episode No OBEpisode recorded.
--- OUTSIDE RECORDS SUMMARY | 2024-10-03 15:51 | XMS_ITS | Clinical Summary ---
Author Organization [employer] [facility] Address [address] [facility] [facility] [address] [place] [address] Care Team Providers Care Ground Operations Supervisor Name Role Phone Unavailable Primary Care Provider [...] patient's age to complete this topic Insurance [facility]
--- OUTSIDE RECORDS SUMMARY | 2024-10-03 15:51 | XMS_ITS | Clinical Summary ---
Author Organization [address] Address [address] [place] [address] Phone Care Team Providers Care Hospice Home Care Coordinator Name Role Phone Valarie Akbar MD Primary Care Provider [phone] Allergies Active Allergy Reactions Criticality Noted Date Comments Fentanyl 04/18/2024 Penicillins 04/18/2024 Medications diclofenac (Voltaren Arthritis Pain) 1 % topical gel Apply 4 g topically 2 (two) times a day. 240 g 1 10/28/19 25 Active Encounters Date Type Department Care Team Description 08/28/2024 2:00 PM EDT Office Visit Orthopedic Surgery [facility] [address] [address] Mateo Weathers, DPM Sesamoiditis of left foot (Primary Dx); Dermatofibroma of left lower leg; Acquired hammer toe of right foot; Hammer toe of left foot; Acquired hallux valgus of right foot from Last 3 Months Social History [...] Upcoming Encounters Date Type Department Care Team ([facility] st Contact Info) Description 10/11/2024 10:30 AM EDT Office Visit Orthopedic Surgery - [place] 250 175 [facility] 250 [place] [address] Mateo Weathers, DPJuventino [address] [address] Health Maintenance Due Date Last Done Comments Breast Cancer Screening 1970 Hepatitis B Vaccines (1 of 3 - 19+ 3-dose series) 01/13/1987 Pneumococcal Vaccine: 50+ Years (1 of 2 - PCV) 01/13/1987 Zoster Vaccines (1 of 2) 01/13/1987 Cervical Cancer Screening: Pap Smear 01/13/1989 COVID-19 Vaccine () 11/14/2023 12/29/2022, 03/25/2022, 03/04/2021, Additional history exists Colorectal Cancer Screening: Colonoscopy 01/18/2024 HIV Screening 01/18/2024 Hepatitis C Screening 01/18/2024 Social Influencers of Health Screening 01/18/2024 Depression Screening 03/15/2024 Influenza Vaccine (#1) 2024 , 04/02/2020, 02/21/2019, [...] patient's age to complete this topic Insurance [facility] Member Subscriber Plan / Payer (Ef fective 2016-Present) Name:MELINDA KOENIG Relation to Subscriber:Self Name:Melinda Koenig I Payer ID:[id number] Group ID:[id number] Type:Not on file Address: [address] [place] [phone] [place]ICAID - [place] Care Teams Hospice Home Care Coordinator Relationship Specialty Start Date End Date Valarie Akbar MD [address] [place] [address] , [address] [facility] D/B/A: [facility] [place] PCP - General Internal Medicine 02/18/24
== END 2024-10-03 15:27 | disposition home or self-care (01) ==
LOC: HO.HMCH 14:41
PROVIDERS: PCP Internal Medicine; Visit Provider Internal Medicine
DX: F31.32 Bipolar disorder, current episode depressed, moderate (principal); Z09 Encounter for follow-up examination after completed treatment for conditions other than malignant neoplasm; R94.31 Abnormal electrocardiogram [ECG] [EKG]; M16.12 Unilateral primary osteoarthritis, left hip; M25.562 Pain in left knee

== ENCOUNTER → 2024-10-03 14:40 | Outpatient (BNVA) | payer OTHER, SELFPAY | PROVIDERS: PCP Internal Medicine; Visit Provider Internal Medicine | DX: M17.0 Bilateral primary osteoarthritis of knee (principal); M16.0 Bilateral primary osteoarthritis of hip; F31.32 Bipolar disorder, current episode depressed, moderate; R94.31 Abnormal electrocardiogram [ECG] [EKG]; Z09 Encounter for follow-up examination after completed treatment for conditions other than malignant neoplasm; Z91.81 History of falling | CPT/HCPCS: 99212 ==

== ENCOUNTER 2024-10-10 07:15 | Emergency (ER) | payer OTHER, SELFPAY ==
[2024-10-10 07:27] VITALS: BP 107/65; BP 108/72; PULSE 76; PULSE 78; RESP 16; TEMP 36.8; O2SAT 96; BMI 33.4
[2024-10-10 07:29] VITALS: BP 107/65; PULSE 78; RESP 16; TEMP 36.8; O2SAT 96
--- OUTSIDE RECORDS SUMMARY | 2024-10-10 07:46 | XMS_ITS | Data Portability ---
Author Organization [facility], Main Office Address [address], [address] [place] [address] Care Team Providers Care Crime Scene Technician Name Role Phone KARL HARPER - 2ND FLOOR OTHER AMELIE LEDESMA Primary Care Provider [phone] Assessment No assessment recorded. Plan of Treatment [...] Recorded Time Pain in left lower limb 933716814 Active 2023 OLESYA MARTINEZ NP [address], [address], [place], [address], [facility] 4 12:26:33 Asthenia 40558977 Active 2023 OLESYA MARTINEZ NP [address], [address], [place], [address], [facility] 4 12:26:40 Recurrent falls 739399226 Active 2023 OLESYA MARTINEZ NP [address], [address], [place], [address], [facility] 4 12:26:58 Major depressive disorder 871011274 Active 2023 OLESYA MARTINEZ NP [address], [address], [place], [address], [facility] 4 12:27:07 Anxiety 13892673 Active 2023 OLESYA MARTINEZ NP [address], [address], [place], [address], [facility] [employer] [facility] 4 12:27:14 Bipolar disorder 85550702 Active 2023 OLESYA MARTINEZ NP [address], [address], [place], [address], [facility] [employer] [facility] 4 12:27:21 Fibromyalgia 962161324 Active 2023 OLESYA MARTINEZ NP [address], [address], [place], [address], [facility] [employer] [facility] 4 12:27:33 Posttraumatic stress disorder 28761390 Active 2023 OLESYA MARTINEZ NP [address], [address], [place], [address], [facility] [employer] [facility] 4 12:27:39 Urinary incontinence 447363846 Active 2023 OLESYA MARTINEZ NP [address], [address], [place], [address], [facility] 4 12:29:15 Osteoarthritis 221925491 Active 2023 OLESYA MARTINEZ NP [address], [address], [place], [address], [facility] [employer] [facility] 4 12:29:20 Carpal tunnel syndrome 49017400 Active 2023 OLESYA MARTINEZ NP [address], [address], [place], [address], [facility] [employer] [facility] 4 12:29:48 Vitamin D deficiency 98110016 Active 2023 OLESYA MARTINEZ NP [address], [address], [place], [address], [facility] 4 12:29:58 Constipation 86464343 Active 2023 OLESYA MARTINEZ NP [address], [address], [place], [address], [facility] 4 12:30:10 Problem Notes None recorded. Medical Equipment None Reported. Allergies Allergen ID Allergen Name Allergen Category Reaction Reaction Severity Criticality Documentation Date Start Date Code Code System Note Provider Name and Address Organization Details Recorded Time 07253 fentanyl medicatio n Not available Not available Not available 01/18/2024 4337 RxNorm vomit ing OLESYA MARTINEZ NP [address] [facility], [address], [place], [address], [facility] 4 12:11:38 70757 Product containin g penicilli n (product) medicatio n Not available Not available Not available 01/18/2024 11841 8001 SNOMED anaph ylaxi s OLESYA MARTINEZ NP [address] [facility], [address], [place], [address], [facility] 4 12:12:12 20628 Zoloft medicatio n Not available Not available Not available 01/18/2024 76207 RxNorm anxie ty OLESYA MARTINEZ NP [address] [facility], [address], [place], [address], [facility] 4 12:12:28 36558 Ambien medicatio n Not available Not available Not available 01/18/2024 10041 5 RxNorm suici jazmyn attem pt OLESYA MARTINEZ NP [address] [facility], [address], [place], [address], [facility] 4 12:12:44 Vitals Date Recorded Heart rate Respiratory rate Body temperature Oxygen saturation Oxygen saturation in Arterial blood by Pulse oximetry Systolic And Diastolic Provider Name and Address Organization Details Last Updated DateTime 4 82 /min 18 /min 98 [degF] 99 % 99 % 132/75 mm[Hg] OLESYA MARTINEZ NP [address] [facility], [address], [place], [address], [place] [facility] 4 12:08:28 Social History Question Answer Notes LastModified by Organizat ion Details LastModified Time Tobacco Smoking Status Never Smoker OLESYA MARTINEZ NP [address] [facility], [address], [place], [address], [facility] 01/18/2024 12:34:28 Do You Have An Advance Directive? Yes [email or web address] Information not available 01/18/2024 What Is Your Code Status? Full Code [email or web address] Information not available 01/18/2024 Which Illicit Or Recreational Drugs Have You Used? Cannabis For Pain Mgmt. [email or web address] Information not available 01/18/2024 Where Do You Live? [address]ment [address] Lives With Dog. Sister Nearby, Supportive . 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 Yes Has HCP Information not available 01/18/2024 What Was The Date Of Your Most Recent Tobacco Screening? 01/18/2024 [email or web address] Information not available 01/18/2024 Do You Have An Out Of Hospital DNR? Yes [email or web address] Information not available 01/18/2024 Have You Used IV Drugs? No [email or web address] Information not available 01/18/2024 Sex: Unknown Functional Status Question Answer Note LastModified by Organizat ion Details LastModified Time Do you use any illicit or recreational drugs? Yes [email or web address] Information not available 01/18/2024 Do you or have you ever used any other forms of tobacco or nicotine? No [email or web address] Information not available 01/18/2024 What is your level of alcohol consumption? None [email or web address] Information not available 01/18/2024 Mental Status None recorded. Family History Relationship Description Onset Age of this Age Resolved Age Notes LastModified by Organization Details LastModified Time Father Depressive disorder [email or web address] Not available 2023 12:32:30 Father Mental disorder Not available 2023 12:32:51 Mother Diabetes mellitus [email or web address] Not available 2023 12:33:28 Mother Malignant tumor of breast [email or web address] Not available 2023 12:33:40 Medical History No medical history recorded. Gynecological HistoryNo gynecological history recorded. Obstetrics History GPAL:G 0 P 0 0 0 0 Immunizations Vaccine Type Date Status Note Provider Farhad lopez and Address Organization Details Recorded Time Tdap 07/29/2018 completed Ananya Carvajal [facility] 01/20/2024 16:39:53 Td(adult) unspecified formulation 07/06/2017 completed Ananya Carvajal [facility] 01/20/2024 16:40:06 SARS-COV-2 (COVID-19) vaccine, UNSPECIFIED 07/18/2020 completed Ananya Carvajal [facility] 01/20/2024 16:40:50 SARS-COV-2 (COVID-19) vaccine, UNSPECIFIED 08/15/2020 completed Ananya Carvajal [facility] 01/20/2024 16:40:57 SARS-COV-2 (COVID-19) vaccine, UNSPECIFIED 03/04/2021 completed Ananya [facility] 01/20/2024 16:41:06 SARS-COV-2 (COVID-19) vaccine, UNSPECIFIED 03/25/2022 completed Ananya [facility] 01/20/2024 16:41:16 SARS-COV-2 (COVID-19) vaccine, UNSPECIFIED 12/29/2022 completed Ananya [facility] 01/20/2024 16:41:24 Past Encounters Encounter ID Performer Location Encounter Start Date Encounter Closed Date Diagnosis/Indication Diagnosis SNOMED-CT Code Diagnosis ICD10 Code Diagnosis Note [id number] OLESYA MARTINEZ NP [facility] [address] [place] [address] 01/18/2024 12:07:38 01/19/2024 10:19:11 Pain in left lower limb 676544132 M79.605 with hx. of recurrent fallsMSIR 15 [...] and txRefer to PMR as well. Asthenia 77967161 R53.1 PT OT eval and tx.Gait instabilit y due left bunion/megan lous which in turn contribute s to L hip/LE painManage pain as aboveRefer to PMRGoal is to return home. Bipolar disorder 8589724 4 F31.9 anxiety, depression , complicate d [...] med mgmt.Monit or mood and behaviors Fibromyalgia 144369917 M 79.7 Continue home meds:cyclo benzaprine 5 mg tid prnAPAP 1000 mg q 6 hr prnIbuprof en 800 mg tid, and 400 mg tid prnduloxet ine 60 mg q am, 30 mg q aft. and hsPT OT eval and tx.Refer to in house PMR Constipation 83320229 K5 9.00 Not on meds at this time, monitor need leonarda. with use of MSO4 Vitamin D deficiency 347 79199 E55.9 Vit D 53677 units q week Health Concerns Section Related Observation LastModified by Organization Detai ls LastModified Time None Recorded Concern Status LastModified by Organization Details LastModified Time None Recorded Advance Directives Directive Y: Payers Insurance Date Sequence Insurance Name Policy Number Policy Grier Covered Member ID Grier Member ID Guarantor Name 01/19/2024 1 [facility] - DOS ON OR AFTER 2022 - MEDICARE ADVANTAGE [place] (MEDICARE REPLACEMENT/ADV ANTAGE - PPO) Cathy Funk [id number] Cathy Funk OBGyn Episode No OBEpisode recorded.
--- OUTSIDE RECORDS SUMMARY | 2024-10-10 07:46 | XMS_ITS | Clinical Summary ---
Author Organization [address] Address [address] [place] [address] Phone Care Team Providers Care Clinic Coordinator Name Role Phone Valarie Akbar MD Primary Care Provider [phone] Allergies Active Allergy Reactions Criticality Noted Date Comments Fentanyl 04/18/2024 Penicillins 04/18/2024 Medications diclofenac (Voltaren Arthritis Pain) 1 % topical gel Apply 4 g topically 2 (two) times a day. 240 g 1 10/28/19 25 Active Encounters Date Type Department Care Team Description 08/28/2024 2:00 PM EDT Office Visit Orthopedic Surgery [facility] [address] [address] Mateo Weathers, DPM Sesamoiditis of [...] Upcoming Encounters Date Type Department Care Team ([facility] st Contact Info) Description 10/11/2024 10:30 AM EDT Office Visit Orthopedic Surgery - [place] 250 175 [facility] 250 [place] [address] Mateo Weathers, DPJuventino [address] [address] Health Maintenance Due Date Last Done Comments Breast Cancer Screening 1970 Hepatitis B Vaccines (1 of 3 - 19+ 3-dose series) 01/13/1987 Zoster Vaccines (1 of 2) 01/13/1987 Cervical Cancer Screening: Pap Smear 01/13/1989 Pneumococcal Vaccine: 50+ Years (1 of 1 - PCV) 01/13/2018 COVID-19 Vaccine ( season) 2023 12/29/2022, [...] patient's age to complete this topic Insurance [facility] Member Subscriber Plan / Payer (Ef fective 2016-Present) Name:MELINDA KOENIG Relation to Subscriber:Self Name:Melinda Koenig I Payer ID:[id number] Group ID:[id number] Type:Not on file Address: [address] [place] [phone] MEDICAID - [place] Care Teams Clinic Coordinator Relationship Specialty Start Date End Date Valarie Akbar MD [address] [place] [address] , [address] [facility] D/B/A: [facility] [place] PCP - General Internal Medicine 02/18/24
--- NOTE | 2024-10-10 09:41 | ED.GENADULT ---
HPI - General Adult General Chief complaint: Extremity Problem Stated complaint: CHRONIC L HIP/KNEE PAIN,NO NEW INJURY PER EMS Time Seen by Provider: 10/10/24 09:41 History of Present Illness ED Provider: Larry SOTO narrative: The patient is a 54-year-old woman with a history of osteoarthritis. She has had a right hip replacement. Recently she has been having problems with the left hip. She has been seen at the orthopedic office with a plan for a left hip replacement this November. She says that she has been having significant pain in the left hip and has been using a cane and a walker. She says that her primary care doctor has not been willing to provide any opioid pain medications. She says that this morning when getting out of bed she had an unusually bad episode of severe left hip pain that prevented her from getting out of bed. An ambulance was called and she was brought to the hospital. No fever, sweats, chills. No injuries. She also mentions that she has had palpitations. Related Data Previous Rx's ?Medication ?Instructions ?Recorded duloxetine 30 mg capsule,delayed 30 mg PO DAILY 15 days #15 caps 07/06/23 release duloxetine 60 mg capsule,delayed 60 mg PO QAM 15 days #15 caps 07/06/23 release oxcarbazepine 150 mg tablet 150 mg PO BID 15 days #30 tabs 07/06/23 oxcarbazepine 600 mg tablet 600 mg PO BID 15 days #30 tabs 07/06/23 prazosin 1 mg capsule 1 mg PO BEDTIME 15 days #15 caps 07/06/23 quetiapine 400 mg tablet 400 mg PO BEDTIME 15 days #15 tabs 07/06/23 benztropine 1 mg tablet 1 mg PO .QHS #30 tabs 07/15/23 quetiapine 50 mg tablet 50 mg PO BID PRN severe anxiety or 07/15/23 agitation 15 days #30 tabs lorazepam 0.5 mg tablet (Ativan) 1 mg (2 x 0.5 mg) PO DAILY PRN 09/27/23 anxiety 1 day #2 tabs folding cane with seat #1 ea 11/12/23 peg 3350-electrolytes 236 240 ml PO Q10M colonoscopy #4,000 12/01/23 gram-22.74 gram-6.74 gram-5.86 mL gram solution (Golytely) acetaminophen 500 mg tablet 1,000 mg (2 x 500 mg) PO Q6H PRN 01/12/24 (Tylenol Extra Strength) fever or pain #20 tabs clonazepam 1 mg tablet 1 mg PO BID #6 tabs 01/17/24 ergocalciferol (vitamin D2) 1,250 1,250 mcg PO QWEEK #12 caps 02/16/24 mcg (50,000 unit) capsule (Vitamin D2) diclofenac sodium 1 % topical gel 2 g topical BID #100 grams 05/13/24 (Arthritis Pain (diclofenac)) Rollator with seat #1 ea 06/14/24 diclofenac sodium 1 % topical gel 2 g topical BID #50 grams 08/20/24 oxycodone 5 mg tablet 5 mg PO Q6H PRN pain #10 tabs 08/20/24 naproxen 500 mg tablet 500 mg PO BID PRN pain #14 tabs 09/05/24 hydrocodone 5 mg-acetaminophen 325 1 tab PO Q6H PRN pain #10 tabs 09/22/24 mg tablet acetaminophen 500 mg capsule 1,000 mg (2 x 500 mg) PO Q8H PRN 10/10/24 fever or pain #14 caps ibuprofen 400 mg tablet 400 mg PO Q6H PRN pain #14 tabs 10/10/24 oxycodone 5 mg tablet 5 mg PO Q6H PRN pain #12 tabs 10/10/24 Allergies Allergy/AdvReac Type Severity Reaction Status Date / Time fentanyl (FENTANYL) Allergy Intermediate VOMITING Verified 10/10/24 07:29 Penicillins (PENICILLINS) Allergy Intermediate ANAPHYLAXIS Verified 10/10/24 07:29 sertraline (From ZOLOFT) Allergy Intermediate ANXIETY Verified 10/10/24 07:29 zolpidem (From AMBIEN) Allergy Intermediate suicidal Verified 10/10/24 07:29 attempt with zolpidem Review of Systems Review of Systems: Yes all other systems are reviewed and are negative PMFSH Past Medical History Medical History MDD (major depressive disorder), recurrent episode, moderate Frequent falls Shoulder pain, bilateral Lumbar pain Screening for cervical cancer Osteoarthritis of right knee Urinary incontinence Skin lesion Right sided abdominal pain Cervical radiculopathy Osteoarthritis of acromioclavicular joint Rotator cuff tendonitis Chronic right shoulder pain Cervical strain Polyarthralgia Carpal tunnel syndrome Bipolar disorder Depression Anxiety Hypovitaminosis D Constipation by delayed colonic transit Surgical History Hx of colonoscopy History of surgery History of right hip replacement History of hemorrhoidectomy History of bunionectomy History of cholecystectomy History of appendectomy Family History Family History Father Depression Prostate cancer Chronic mental illness Mother Diabetes Cancer Breast cancer Maternal Aunt Breast cancer Family/Other Chronic mental illness Other Mental health disorder Social History Social History Household Members: Other Household Members Other:: My dog Housing: House Alcohol intake: never Patient Tobacco Use Status: Never used Tobacco Smoked in Last 30 Days: No e-Cigarette/Vaping Use: Never Used Second Hand Smoke Exposure: No Use of substances other than those prescribed or required for medical reasons: Yes Substance Use Type: Marijuana Substance Use Frequency: Daily Advance Directives: Yes Advance Directives on File: Yes Advance Directives Date on File: 01/17/24 Do you have a plan to hurt others: No Plan Patient : No service: No Current occupational status: disabled 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 She did not seem uncomfortable or in distress at rest. She looked extremely uncomfortable with any movement of the left hip. HENMT Other: The face is symmetrical. Mucous membranes moist. Eyes Other: Pupils are round equal, conjunctivae are clear, extraocular movements intact Neck Neck: Yes normal visual inspection Resp Effort & Inspection: normal respiratory effort Auscultation: clear to auscultation bilaterally Cardio Rate: regular rate Rhythm: regular rhythm Heart sounds: S1 normal heart sound present and S2 normal heart sound present GI Other: The abdomen is soft and nontender Skin Other: The skin is dry and unremarkable Neuro Other: the patient is awake and alert with a normal mental status. Cranial nerves are grossly intact. She moves her arms and her right leg normally With normal strength and sensation. She has normal sensation in the left leg. She has strength testing limited by pain at the left hip. With these limitations I think she has a intact strength. Overall I think she is neurologically intact. Extrem Other: The patient has good pulses in both feet. There was no peripheral edema. No calf swelling or tenderness. She can move the right leg entirely normally. On the left leg she can move the left ankle and knee without apparent discomfort. With manipulation of the left hip she has significant discomfort. Medications Administered Discontinued Medications Generic Name Dose Route Start Last Admin Trade Name Lamin PRN Reason Stop Dose Admin Acetaminophen 975 mg 10/10/24 10:10/10/24 10:22 Acetaminophen 325 Mg Tablet PO 10/10/24 10:03 975 mg ONCE ONE Administration Ketorolac Tromethamine 30 mg 10/10/24 10:02 10/10/24 10:22 Ketorolac Tromethamine 30 Mg/Ml Vial IM 10/10/24 10:03 30 mg ONCE ONE Administration Oxycodone HCl 5 mg 10/10/24 10:02 10/10/24 10:22 Oxycodone Hcl Immed Release 5 Mg Tablet PO 10/10/24 10:03 5 mg ONCE ONE Administration Medical Decision Making Medical Decision Making [facility] Narrative: The patient is a 54-year-old woman with a history of a right hip replacement. She has recently been determined to have significant left hip osteoarthritis as well and is scheduled to have a total hip replacement on the left side this November. She says that she has a cane and a walker at home. She has been having significant pain at home. Today her pain was worse than usual such that she was unable to get out of bed and ultimately called an ambulance. She does not seem acutely ill in any way. No report of any fever, sweats, or chills. Her vital signs are unremarkable. Clinically I think the patient has pain related to her arthritis. She is currently not on any specific pain management regimen. She received a prescription for Vicodin tablets here in the emergency room 2 weeks ago for similar pain. I explained that her pain management really should be done through her primary care doctor or her orthopedic office. She was given an injection of ketorolac and a dose of oxycodone. She will be given a small prescription for oxycodone as well as prescriptions for acetaminophen and ibuprofen. She had also mentioned having palpitations. She has an unremarkable EKG. Discharge Plan Discharge Clinical Impression: Left hip pain, Arthritis of left hip, Pain in left knee Patient Disposition: Home, Self-Care Additional Instructions: Your EKG is fine. You has been given a paper prescription for oxycodone tablets. I have sent electronic prescriptions for acetaminophen and ibuprofen to your pharmacy. Please use these medications as needed for pain. In addition you may use the oxycodone when absolutely necessary. Please contact your regular doctor and your orthopedist about any ongoing narcotic prescriptions prior to your surgery. Prescriptions: New oxycodone 5 mg tablet 5 mg PO Q6H PRN (Reason: pain) Qty: 12 0RF Rx Instructions: Partial Fill upon patient request. ibuprofen 400 mg tablet 400 mg PO Q6H PRN (Reason: pain) Qty: 14 0RF acetaminophen 500 mg capsule 1,000 mg PO Q8H PRN (Reason: fever or pain) Qty: 14 0RF No Action (DME) Rollator with seat See Rx Instructions .Route .MEDSUPPLY Qty: 1 0RF Rx Instructions: As directed oxcarbazepine 150 mg tablet 150 mg PO BID 15 Days Qty: 30 1RF prazosin 1 mg capsule 1 mg PO BEDTIME 15 Days Qty: 15 1RF oxcarbazepine 600 mg tablet 600 mg PO BID 15 Days Qty: 30 1RF duloxetine 60 mg capsule,delayed release(DR/EC) 60 mg PO QAM 15 Days Qty: 15 1RF quetiapine 400 mg tablet 400 mg PO BEDTIME 15 Days Qty: 15 0RF duloxetine 30 mg capsule,delayed release(DR/EC) 30 mg PO DAILY 15 Days Qty: 15 1RF benztropine 1 mg tablet 1 mg PO .QHS Qty: 30 0RF quetiapine 50 mg tablet 50 mg PO BID PRN (Reason: severe anxiety or agitation) 15 Days Qty: 30 1RF clonazepam 1 mg tablet 1 mg PO BID Qty: 6 0RF diclofenac sodium 1 % gel 2 g topical BID Qty: 50 0RF Rx Instructions: apply to hip and knee oxycodone 5 mg tablet 5 mg PO Q6H PRN (Reason: pain) Qty: 10 0RF Rx Instructions: Partial Fill upon patient request. acetaminophen [Tylenol Extra Strength] 500 mg tablet 1,000 mg PO Q6H PRN (Reason: fever or pain) Qty: 20 0RF diclofenac sodium [Arthritis Pain (diclofenac)] 1 % gel 2 g topical BID Qty: 100 0RF Rx Instructions: apply to joint as needed for pain naproxen 500 mg tablet 500 mg PO BID PRN (Reason: pain) Qty: 14 0RF hydrocodone-acetaminophen 5-325 mg tablet 1 tab PO Q6H PRN (Reason: pain) Qty: 10 0RF Rx Instructions: partial fill okay; Partial Fill upon patient request. lorazepam [Ativan] 0.5 mg tablet 1 mg PO DAILY PRN (Reason: anxiety) 1 Days Qty: 2 0RF Rx Instructions: Take 45 minutes before MRI. (DME) folding cane with seat See Rx Instructions .Route .MEDSUPPLY Qty: 1 0RF Rx Instructions: As directed ergocalciferol (vitamin D2) [Vitamin D2] 1,250 mcg (50,000 unit) capsule 1,250 mcg PO QWEEK Qty: 12 0RF peg 3350-electrolytes [Golytely] 236-22.74-6.74 -5.86 gram recon soln 240 ml PO Q10M Qty: 4000 0RF Rx Instructions: as per split prep instructions, until fecal effluent is clear Ref[place]: [facility] [Provider Group] Valarie Ramos MD [Primary Care Provider, Internal Medicine] Interventions: ED Discharge Assessment Last Done: 10/10/24 11:22 Discharge Date/Time: 10/10/24 11:31 Print Language: Chinese
--- NOTE | 2024-10-10 10:02 | ECG_ITS ---
Test Reason : palpitations Blood Pressure : */* mmHG Vent. Rate : 64 BPM Atrial Rate : 64 BPM P-R Int : 184 ms QRS Dur : 86 ms QT Int : 424 ms P-R-T Axes : 36 29 27 degrees QTcB Int : 437 ms Normal sinus rhythm Normal ECG When compared with ECG of 05-Sep-2024 08:28, No significant change was found Referred By: Biju Juarez Electronically Signed By: ANIKET VALLADARES MD
[2024-10-10] MEDS: oxyCODONE HCl Immed Release 5 MG TABLET PO (10:22)
[2024-10-10 10:56] VITALS: BP 111/64; PULSE 67; RESP 16; O2SAT 98
[2024-10-10 11:22] VITALS: BP 115/67; PULSE 73; RESP 17; TEMP -17.7; TEMP 0; O2SAT 96
== END 2024-10-10 11:31 | disposition home or self-care (01) ==
PROVIDERS: Emergency Provider Emergency Medicine; PCP Internal Medicine
DX: M16.12 Unilateral primary osteoarthritis, left hip (principal); M25.552 Pain in left hip; M25.562 Pain in left knee; R00.2 Palpitations
CPT/HCPCS: 93005; 96372; 99284; 99285; J1885

== ENCOUNTER → 2024-10-10 10:02 | Outpatient (BNV) | payer OTHER, SELFPAY | PROVIDERS: Emergency Provider Emergency Medicine; PCP Internal Medicine; Visit Provider Internal Medicine Cardiovascular Disease | DX: R00.2 Palpitations (principal) | CPT/HCPCS: 93010 ==

== ENCOUNTER 2024-10-19 13:00 | Outpatient (AMB) | payer OTHER, SELFPAY ==
--- NOTE | 2024-10-19 13:04 | A.OFFVIS_ITS ---
Vital Signs 10/19/24 13:05 Height 5 ft 5 in Weight 200 lb BMI 33.3 Intake Visit Reasons: ER f/u- LT hip OA s/p fall DOI: 09/22/24 Intake Note: Cathy is a 54 year old female who presents today for a follow up of her left knee s/p fall on 09/22/24. Patient was seen at the [facility] ED that same day as the fall where she reports that she gets dizzy often and fell after standing up. Left knee injection done 07/20/24. Patient reports that she has taken multiple falls due to balance issues - she has not seen anyone for this . Her pain is in the groin and lateral aspect of the hip and radiates to the hip. She wants to talk about a Hip Replacement and possibly a cortisone injection She would like to go to [facility] post operatively. Allergies fentanyl (FENTANYL) Allergy (Intermediate, Verified 10/19/24 13:05) VOMITING Penicillins (PENICILLINS) Allergy (Intermediate, Verified 10/19/24 13:05) ANAPHYLAXIS sertraline (From ZOLOFT) Allergy (Intermediate, Verified 10/19/24 13:05) ANXIETY zolpidem (From AMBIEN) Allergy (Intermediate, Verified 10/19/24 13:05) suicidal attempt with zolpidem HPI HPI ER f/u- LT hip OA s/p fall DOI: 09/22/24: Details: Cathy is a 54 year old female who presents today for a follow up s/p fall on 09/22/24. Patient was seen at the [facility] ED that same day as the fall where she reports that she fell after standing up. . Her pain is in the groin and lateral aspect of the hip and radiates to the knee. She had a right hip replacement and did very well. She is feeling that she can comfortably get through her day. She has difficulty getting into and out of a chair, a car, bed. She wants to talk about a Hip Replacement. [facility] Medical History MDD (major depressive disorder), recurrent episode, moderate Frequent falls Shoulder pain, bilateral Lumbar pain Screening for cervical cancer Osteoarthritis of right knee Urinary incontinence Skin lesion Right sided abdominal pain Cervical radiculopathy Osteoarthritis of acromioclavicular joint Rotator cuff tendonitis Chronic right shoulder pain Cervical strain Polyarthralgia Carpal tunnel syndrome Bipolar disorder Depression Anxiety Hypovitaminosis D Constipation by delayed colonic transit Surgical History Hx of colonoscopy History of surgery History of right hip replacement History of hemorrhoidectomy History of bunionectomy History of cholecystectomy History of appendectomy Family History Father Depression Prostate cancer Chronic mental illness Mother Diabetes Cancer Breast cancer Maternal Aunt Breast cancer Family/Other Chronic mental illness Other Mental health disorder Social History Household Members: Other Household Members Other:: My dog Housing: House Alcohol intake: never Patient Tobacco Use Status: Never used Tobacco e-Cigarette/Vaping Use: Never Used Second Hand Smoke Exposure: No Substance Use Type: Marijuana Advance Directives Date on File: 01/17/24 service: No Current occupational status: disabled 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 Dorsalis pedis 2+. Antalgic gait with Trendelenburg pattern. Left knee is unremarkable on exam. Results Reviewed Results Reviewed: I personally reviewed relevant radiographs. Right KRISTIN in expected post operative position with no hardware complications or evidence of loosening Left hip with moderate-severe osteoarthritis Assessment & Plan Assessment & Plan (1) Osteoarthritis of left hip: Code(s): M16.12 - Unilateral primary osteoarthritis, left hip Category: Medical Qualifiers: Osteoarthritis type: unspecified Qualified Code(s): M16.12 - Unilateral primary osteoarthritis, left hip Plan: This is a 54-year-old woman with left hip osteoarthritis. It is severe and has been present for years. I have seen her in the past for this and we discussed hip replacement and she has got to the point now where she feels unstable because of the pain. She also feels the quality of her life is diminished because of the pain. She had a successful right hip replacement I think it is reasonable to offer her a left hip replacement. I did discuss the surgery with her. I discussed the risks, benefits and alternatives including to, but not limited to, the risk of infection, fracture, injury to nerve or blood vessel, the risk of blood clots and pulmonary emboli, the risk of leg length discrepancy, the risk of dislocation, the risk of a need for further surgery whether due to infection or aseptic loosening. Has a discussed some of the medical complications associated with surgery such as pneumonia, urinary urinary tract infections, or and failure, stroke. She expressed understanding. She would like to proceed forward. We will begin the preoperative clearance process. Coding Level of Care Code Est Pt Level 4 (48896) Diagnoses Osteoarthritis of left hip M16.12 Osteoarthritis type: unspecified
[2024-10-19 13:05] VITALS: BMI 33.3
--- OUTSIDE RECORDS SUMMARY | 2024-10-19 13:05 | XMS_ITS | Clinical Summary ---
Author Organization [facility] Technology [facility] Address [address] [place] [address] Care Team Providers Care Administration Specialist Name Role Phone Unavailable Primary Care [...] patient's age to complete this topic Insurance [facility] STANDARD [facility] ADV
--- OUTSIDE RECORDS SUMMARY | 2024-10-19 13:05 | XMS_ITS | Clinical Summary ---
Author Organization [address] Address [address] [place] [phone] Phone Care Team Providers Care Vocational Technical Education Director Name Role Phone Valarie Akbar MD Primary Care Provider [phone] Allergies Active Allergy Reactions Criticality Noted Date Comments Fentanyl 04/18/2024 Penicillins 04/18/2024 Medications diclofenac (Voltaren Arthritis Pain) 1 % topical gel Apply 4 g topically 2 (two) times a day. 240 g 1 10/28/19 25 Active Encounters Date Type Department Care Team Description 10/11/2024 10:30 AM EDT Office Visit Orthopedic Surgery [address] [phone] Mateo Weathers DPM Sesamoiditis of left foot (Primary Dx); Dermatofibroma of left lower leg; Acquired hammer toe of right foot; Hammer toe of left foot; Acquired hallux valgus of right foot; Dermatophytosis of nail; Corns and callosities; Ingrowing nail; Pain in toe of right foot; Pain in toe of left foot; Difficulty walking 08/28/2024 2:00 PM EDT Office Visit Orthopedic [address] [phone] Mateo Weathers DPM Sesamoiditis of left foot [...] - - Weight 86.2 kg (190 lb) 10/11/2024 10:05 AM EDT Height 165.1 cm (5' 5 ) 10/11/2024 10:05 AM EDT Body Mass Index 31.62 10/11/2024 10:05 AM EDT Plan of Treatment Upcoming Encounters Date Type Department Care Team (Late st Contact Info) Description 01/29/2025 10:30 AM EST Office Visit Orthopedic Surgery - [place] [address] [phone] Mateo Weathers, DPM [address] [address] Health Maintenance Due Date Last Done Comments [...] patient's age to complete this topic Insurance [facility] Member Subscriber Plan / Payer (Ef fective 2016-Present) Name:MARY CHRISTINE MELINDA Relation to Subscriber:Self Name:Juan Koenigiadon Chinchilla Payer ID:[id number] Group ID:[id number] Type:Not on file Address: [facility] [address] [id number] [place]ICA[place] - [place] Care Teams Vocational Technical Education Director Relationship Specialty Start Date End Date Valarie Akbar MD [address] [place] [address] , [facility] [address] [facility] D/B/A: [facility] [place] PCP - General Internal Medicine 02/18/24
== END 2024-10-19 14:34 | disposition home or self-care (01) ==
LOC: HO.HOS 13:01
PROVIDERS: PCP Internal Medicine; Visit Provider Orthopaedic Surgery
DX: M16.12 Unilateral primary osteoarthritis, left hip (principal)
CPT/HCPCS: 99214

== ENCOUNTER → 2024-10-19 13:00 | Outpatient (BNVA) | payer OTHER, SELFPAY | PROVIDERS: PCP Internal Medicine; Visit Provider Orthopaedic Surgery | DX: M16.12 Unilateral primary osteoarthritis, left hip (principal) | CPT/HCPCS: 99212 ==

== ENCOUNTER 2024-10-27 07:11 | Outpatient (REF) | payer OTHER, SELFPAY ==
--- NOTE | ~2024-10-27 | MM_ITS ---
EXAMINATION: MM SCREENING DIGITAL BREAST TOMOSYNTHESIS, BILATERAL CLINICAL INFORMATION: Screening. Asymptomatic. COMPARISON: Mammography: Comparison is made with available priors TECHNIQUE: Digital breast mammography with tomosynthesis is performed in both the craniocaudal and mediolateral oblique views along with computer-aided detection (CAD). FINDINGS: The breasts are almost entirely fatty (ACR BI-RADS breast composition Category a). There are no significant masses, abnormal calcifications, or other abnormalities. MM/MM tomosynthesis screening BI IMPRESSION: No mammographic evidence of malignancy. ASSESSMENT: BI-RADS BI-RADS 1 - Negative RECOMMENDATION: Routine annual mammography screening. 1 year F/U This examination should not preclude the clinical evaluation of a suspicious palpable abnormality. This patient's information was entered into a reminder system with a target due date for their next mammogram. Electronically signed by: Ngozi Chen DO 10/31/2024 02:51 PM EDT
--- OUTSIDE RECORDS SUMMARY | 2024-10-27 07:13 | XMS_ITS | Clinical Summary ---
Author Organization [address] Address [address] [place] [phone] Phone Care Team Providers Care Railcar Switcher Name Role Phone Valarie Akbar MD Primary Care Provider [phone] Allergies Active Allergy Reactions Criticality Noted Date Comments Fentanyl 04/18/2024 Penicillins 04/18/2024 Medications diclofenac (Voltaren Arthritis Pain) 1 % topical gel Apply 4 g topically 2 (two) times a day. 240 g 1 10/28/19 25 Active Encounters Date Type Department Care Team Description 10/11/2024 10:30 AM EDT Office Visit Orthopedic Surgery [address] [phone] Mateo Weathers DPM Sesamoiditis of left foot (Primary Dx); Dermatofibroma of left lower leg; Acquired hammer toe of right foot; Hammer toe of left foot; Acquired hallux valgus of right foot; Dermatophytosis of nail; Corns and callosities; Ingrowing nail; Pain in toe of right foot; Pain in toe of left foot; Difficulty walking 08/28/2024 2:00 PM EDT Office Visit Orthopedic [address] [phone] Mateo Weathers DPM Sesamoiditis of left foot [...] AM EST Office Visit Orthopedic Surgery - [place] [address] [phone] Mateo Weathers, DPM [address] [address] Health Maintenance Due Date Last Done Comments [...] patient's age to complete this topic Insurance [facility] Member Subscriber Plan / Payer (Ef fective 2016-Present) Name:MARY CHRISTINE MELINDA Relation to Subscriber:Self Name:Juan Koenigiadon Chinchilla Payer ID:[id number] Group ID:[id number] Type:Not on file Address: [facility] [address] [id number] [place] - [place] Care Teams Railcar Switcher Relationship Specialty Start Date End Date Valarie Akbar MD [address] [place] [address] , [facility] [address] [facility] D/B/A: [facility] [place] PCP - General Internal Medicine 02/18/24
--- OUTSIDE RECORDS SUMMARY | 2024-10-27 07:13 | XMS_ITS | Clinical Summary ---
Author Organization [facility] Technology [facility] Address [address] [place] [address] Care Team Providers Care Vessel Slagman Name Role Phone Unavailable Primary Care Provider [...] patient's age to complete this topic Insurance [facility] STANDARD [facility] ADV
== END 2024-10-27 07:12 | disposition home or self-care (01) ==
LOC: HO.MAMMO 07:11
PROVIDERS: PCP Internal Medicine; Visit Provider Internal Medicine
DX: Z12.31 Encounter for screening mammogram for malignant neoplasm of breast (principal)
CPT/HCPCS: 77063; 77067

== ENCOUNTER → 2024-10-27 07:45 | Outpatient (BNV) | payer OTHER, SELFPAY | PROVIDERS: PCP Internal Medicine; Visit Provider Internal Medicine | DX: Z12.31 Encounter for screening mammogram for malignant neoplasm of breast (principal) | CPT/HCPCS: 77063; 77067 ==

== ENCOUNTER 2024-11-15 09:17 | Outpatient (AMB) | payer OTHER, SELFPAY ==
[2024-11-15 09:21] VITALS: BP 120/82; PULSE 82; RESP 18; TEMP 35.7; O2SAT 94; BMI 33.2
--- NOTE | 2024-11-15 09:21 | A.OFFPC_ITS ---
Vital Signs 11/15/24 09:21 Height 5 ft 5 in Weight 199 lb 6 oz BMI 33.2 BP 120/82 Blood Pressure Location Lt brachial Position Sitting Respiration 18 Pulse 82 Pulse Source Pulse Oximeter Temp 96.2 F L Temp Source Temporal Artery Scan Pulse Oximetry (%) 94 Oxygen Delivery Method Room Air Intake Visit Reasons: Afshan barroso/Dr. Silvestre 01/09/25 Culture Media Laboratory Assistant Required: No Accompanied by: Self / Same As Patient Allergies fentanyl (FENTANYL) Allergy (Intermediate, Verified 11/15/24 09:48) VOMITING Penicillins (PENICILLINS) Allergy (Intermediate, Verified 11/15/24 09:48) ANAPHYLAXIS sertraline (From ZOLOFT) Allergy (Intermediate, Verified 11/15/24 09:48) ANXIETY zolpidem (From AMBIEN) Allergy (Intermediate, Verified 11/15/24 09:48) suicidal attempt with zolpidem Medication List - Last Reconciled 11/15/24 by Valarie Akbar MD acetaminophen (Tylenol Extra Strength) 1,000 mg (2 x 500 mg) PO Q6H PRN acetaminophen 1,000 mg (2 x 500 mg) PO Q8H PRN benztropine 1 mg PO .QHS clonazepam 1 mg PO BID diclofenac sodium 1% (Arthritis Pain (diclofenac)) 2 grams topical BID diclofenac sodium 1% 2 grams topical BID duloxetine 60 mg PO QAM 15 days duloxetine 30 mg PO DAILY 15 days [folding cane with seat As directed] hydrocodone-acetaminophen 5-325 mg 1 tab PO Q6H PRN ibuprofen 400 mg PO Q6H PRN lorazepam (Ativan) 1 mg (2 x 0.5 mg) PO DAILY PRN 1 day naproxen 500 mg PO BID PRN oxcarbazepine 150 mg PO BID 15 days oxcarbazepine 600 mg PO BID 15 days oxycodone 5 mg PO Q6H PRN oxycodone 5 mg PO Q6H PRN prazosin 1 mg PO BEDTIME 15 days quetiapine 400 mg PO BEDTIME 15 days quetiapine 50 mg PO BID PRN 15 days [Rollator with seat As directed] Tobacco use date assessed: 11/15/24 Dental Screening Dental Screen Date: 11/15/24 Did you have a dental visit in the last 12 months?: No Did you have a dental problem in the last 6 months where you did not have access to dental care?: No Was dental information given to patient?: No HPI HPI Comments History of Present Illness Details The patient is a 54-year-old female presenting with a preoperative evaluation for left total hip replacement. She has a history of bipolar disorder with mild major depression and anxiety, which is managed by psychiatry and has been stable with medications. Her surgical history includes lumbar surgery, right shoulder surgery, right hip replacement, hemorrhoidectomy, bunionectomy, appendectomy, and cholecystectomy. She does not smoke and has never smoked, and she does not consume alcohol. The last electrocardiogram performed in September showed normal sinus rhythm, and her complete blood count and comprehensive metabolic panel were within normal limits. She is able to perform 5 to 7 metabolic equivalents of tasks related to activities of daily living and uses a cane for ambulation. Patient is medically clear for surgery. By RCRI she has 0.3% of cardiac complications during surgery. [facility] Medical History (Updated 11/15/24 @ 12:03 by Valarie Akbar MD) Severe major depression without psychotic features MDD (major depressive disorder), recurrent episode, moderate Frequent falls Shoulder pain, bilateral Lumbar pain Screening for cervical cancer Osteoarthritis of right knee Urinary incontinence Skin lesion Right sided abdominal pain Cervical radiculopathy Osteoarthritis of acromioclavicular joint Rotator cuff tendonitis Chronic right shoulder pain Cervical strain Polyarthralgia Carpal tunnel syndrome Bipolar disorder Depression Anxiety Hypovitaminosis D Constipation by delayed colonic transit Surgical History (Updated 11/15/24 @ 09:55 by Valarie Akbar MD) History of lumbar surgery Hx of colonoscopy History of surgery History of right hip replacement History of hemorrhoidectomy History of bunionectomy History of cholecystectomy History of appendectomy Family History Father Depression Prostate cancer Chronic mental illness Mother Diabetes Cancer Breast cancer Maternal Aunt Breast cancer Family/Other Chronic mental illness Other Mental health disorder Social History Household Members: Other Household Members Other:: My dog Housing: House Alcohol intake: never Patient Tobacco Use Status: Never used Tobacco e-Cigarette/Vaping Use: Never Used Second Hand Smoke Exposure: No Substance Use Type: Marijuana Advance Directives Date on File: 01/17/24 service: No Current occupational status: disabled 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 1. Little interest or pleasure in doing things: not at all 2. Feeling down, depressed, or hopeless: more than half the days 3. Trouble falling or staying asleep, or sleeping too much: nearly every day 4. Feeling tired or having little energy: more than half the days 5. Poor appetite or overeating: several days 6. Feeling bad about yourself - or that you are a failure or have let yourself or your family down: more than half the days 7. Trouble concentrating on things, such as reading the newspaper or watching television: several days 8. Moving or speaking so slowly that other people could have noticed. Or the opposite - being so fidgety or restless that you have been moving around a lot more than usual: several days 9. Thoughts that you would be better off or of hurting yourself in some way: not at all Total score: 12 Depression Screening Interpretation: Positive Depression Screening Follow-up: Existing condition, In treatment, Community Mental Health Worker F/U and Follow- up Visit Requested Depression Screening Done: Yes 29032 - PHQ-9 Billing: Yes Source: Developed by Drs. Tai Romero, Rochelle London, Renny Scales and colleagues, with an educational emily from [employer] Thrive Questionnaire Date Thrive assessed: 11/15/24 I am a: Patient What is your living situation today?: I have a steady place to live Within the past 12 months, did the food you bought not last and you didn't have the money to get more?: Sometimes True Within the past 12 months, did you worry whether your food would run out before you got money to buy more?: Often true Do you have trouble paying for medicines?: No Do you have trouble getting transportation to medical appointments?: No Do you have trouble paying your heating and electricity bill?: Yes Do you have trouble taking care of your child, family member or friend?: No Do you have trouble with day-to-day activities such as bathing, preparing meals, shopping, managing finances, etc.?: Yes Are you currently unemployed and looking for a job?: No Are you interested in more education?: No Please select the resources that you would like help with: Food THRIVE Score: 3 AUDIT C Alcohol Use Questionnaire (AUDIT-C) 1. How often do you have a drink containing alcohol?: Never 3. How often do you have six or more drinks on one occasion?: Never Total Score: 0 DAVID-7 AMB Questionnaire DAVID-7 Date DAVID - 7 assessed: 11/15/24 Feeling nervous, anxious, or on edge: 2 = More than half the days Not being able to stop or control worryin = Nearly every day Worrying too much about different things: 2 = More than half the days Trouble relaxin = Several days Being so restless that it is hard to sit still: 1 = Several days Becoming easily annoyed or irritable: 0 = Not at all Feeling afraid as if something awful might happen: 1 = Several days Total DAVID-7 score (0-4 normal; 5-9 mild; 10-14 moderate; 15-21 severe): 10 Source: Developed by Drs. Tai Romero, Rochelle London, Renny Scales and colleagues, with an educational emily from [employer] DAVID-7 Assessment Billing DAVID-7 Assessment Tool: DAVID-7 Assessment 01661 Review of Systems Const All systems reviewed & are unremarkable except as noted in HPI and below Card Denies chest pain at rest, Denies chest pain with activity, Denies edema, Denies irregular heart rhythm, Denies claudication, Denies dyspnea, Denies dyspnea on exertion, Denies orthopnea, Denies paroxysmal nocturnal dyspnea and Denies slow heart rate Resp Denies cough, Denies dyspnea and Denies dyspnea on exertion GI Denies abdominal pain, Denies change in bowel habits, Denies excessive flatus, Denies nausea and Denies vomiting Neuro Denies lack of coordination Physical exam (Primary Care) Vital Signs: Last Vital Signs Temp 96.2 F L 11/15/24 09:21 Pulse 82 11/15/24 09:21 Resp 18 11/15/24 09:21 BP 120/82 11/15/24 09:21 Pulse Ox 94 11/15/24 09:21 Oxygen Delivery Method Room Air 11/15/24 09:21 BMI result Body Mass Index 33.2 Tobacco/Smoking Status: Tobacco use Status Tobacco use date assessed 11/15/24 11/15/24 09:27 Patient Tobacco Use Status Never used Tobacco 11/15/24 09:27 Tobacco use type 10/24/24 11:37 e-Cigarette/Vaping Use Never Used 11/15/24 09:27 PHQ-9: PHQ-9 Score PHQ-9: Total score 12 11/15/24 09:50 Depression Screening Interpretation: Positive Depression Screening Follow-up: Existing condition, In treatment, Community Mental Health Worker F/U and Follow- up Visit Requested Thrive Assessment: Date of Thrive Assessment Date Thrive assessed 11/15/24 11/15/24 09:27 Resp Effort & Inspection: normal respiratory effort Auscultation: clear to auscultation bilaterally Cardio Jugular venous distension: no JVD Rate: regular rate Rhythm: regular rhythm Heart sounds: S1 normal heart sound present and S2 normal heart sound present Extrem General: Yes full ROM Coding Level of Care Code Est Pt Level 4 (90385) Complex EM visit Add On G2211 Diagnoses Pre-op evaluation Z01.818 Bipolar affective, depress, mod F31.32 DAVID (generalized anxiety disorder) F41.1 Osteoarthritis of left hip M16.12 Additional Codes DAVID-7 Assessment Billing - DAVID-7 Assessment Tool: DAVID-7 Assessment 44460 ([id number]) PHQ-9 - 89440 - PHQ-9 Billing: Yes ([id number]) Time Spent (min) 22 Assessment & Plan Assessment & Plan (1) Pre-op evaluation: Code(s): Z01.818 - Encounter for other preprocedural examination Category: Medical (2) Bipolar affective, depress, mod: Code(s): F31.32 - Bipolar disorder, current episode depressed, moderate Category: Medical (3) DAVID (generalized anxiety disorder): Code(s): F41.1 - Generalized anxiety disorder Category: Medical (4) Osteoarthritis of left hip: Code(s): M16.12 - Unilateral primary osteoarthritis, left hip Category: Medical Plan Plan 1. Encounter for other preprocedural examination Z01.818 The patient is medically cleared for the scheduled left total hip replacement surgery on January 09. 2. Bipolar II disorder F31.81 HCC 59 The patient's bipolar disorder with mild major depression and anxiety is stable under psychiatric care with current medications. 3. Unilateral primary osteoarthritis, left hip M16.12 Medications: New tramadol 50 mg PO Q8H PRN 90 tabs 0RF pain 30 days [toilet seat elevator] As directed 1 ea 0RF M16.12 - Unilateral primary osteoarthritis, left hip cane As directed 1 ea 0RF M16.12 - Unilateral primary osteoarthritis, left hip
--- OUTSIDE RECORDS SUMMARY | 2024-11-15 10:02 | XMS_ITS | Encounter Summary ---
Author Organization [facility] Address [address] [place] [address] Care Team Providers Care Hospice Admitting Clerk Name Role Phone Valarie Akbar MD Primary Care Provider [phone] Encounter Details Date Type Department Care Team (Late st Contact Info) Description 01/18/2024 Lab Requisition [facility] - Main Lab [address] [place] [address] Gary Kam MD [address] [place] [address] [address] [place], [address] Bipolar disorder, unspecified (CMS/HCC V24, CMS/HCC [...] AM EST Office Visit Orthopedic Surgery - [place] [address] [phone] Mateo Weathers DPM [address] [phone] documented as of this encounter Procedures Procedure [...] * Hemoglobin A1c (01/18/2024 6:29 AM EST) Pathologist [facility] Hemoglobin A1C 5.1 <6.5 % LAB CHEMISTRY METHOD 01/18/2024 8:31 PM EST [facility] Mean Bld Glu Estim. 100 mg/dL LAB CHEMISTRY METHOD 01/18/2024 8:31 PM [facility] Blood Venous blood specimen / Unknown 01/18/2024 6:29 AM EST 01/18/2024 1:32 PM EST us Gary Kam MD LAB BLOOD ORDERABLES Final Resul t [facility] [address] [place] [address], * CBC auto differential (01/18/2024 6:29 AM EST) Pathologist [facility] WBC 5.4 4.8 - 10.8 K/mcL LAB HEMETOLOGY METHOD 01/18/2024 1:33 PM EST [facility] RBC 4.80 3.80 - 4.80 M/mcL LAB HEMETOLOGY METHOD 01/18/2024 1:33 PM EST [facility] Hemoglobin 14.9 11.5 - 16.0 g/dL LAB HEMETOLOGY METHOD 01/18/2024 1:33 PM EST [facility] Hematocrit 45.7 35.0 - 47.0 % LAB HEMETOLOGY METHOD 01/18/2024 1:33 PM [facility] MCV 95.0 79.0 - 98.0 FL LAB HEMETOLOGY METHOD 01/18/2024 1:33 PM [facility] MCH 31.0 27.0 - 32.0 pcg LAB HEMETOLOGY METHOD 01/18/2024 1:33 PM [facility] MCHC 32.6 32.0 - 37.0 g/dL LAB HEMETOLOGY METHOD 01/18/2024 1:33 PM [facility] RDW 13.2 11.0 - 15.0 % LAB HEMETOLOGY METHOD 01/18/2024 1:33 PM [facility] Platelets 307 130 - 400 K/mcL LAB HEMETOLOGY METHOD 01/18/2024 1:33 PM [facility] MPV 9.2 7.0 - 11.0 FL LAB HEMETOLOGY METHOD 01/18/2024 1:33 PM [facility] NRBC 0.0 <1.0 % LAB HEMETOLOGY METHOD 01/18/2024 1:33 PM [facility] NRBC Absolute 0.00 <0.10 K/mcL LAB HEMETOLOGY METHOD 01/18/2024 1:33 PM [facility] Neutrophils Relative 56.6 % LAB HEMETOLOGY METHOD 01/18/2024 1:33 PM [facility] Lymphocytes Relative 31.6 % LAB HEMETOLOGY METHOD 01/18/2024 1:33 PM [facility] Monocytes Relative 4.8 % LAB HEMETOLOGY METHOD 01/18/2024 1:33 PM [facility] Eosinophils Relative 5.9 % LAB HEMETOLOGY METHOD 01/18/2024 1:33 PM [facility] Basophils Relative 0.7 % LAB HEMETOLOGY METHOD 01/18/2024 1:33 PM EST [facility] Immature Granulocytes Relative 0.4 % LAB HEMETOLOGY METHOD 01/18/2024 1:33 PM EST [facility] Neutrophils Absolute 3.04 1.50 - 7.00 K/mcL LAB HEMETOLOGY METHOD 01/18/2024 1:33 PM EST [facility] Lymphocytes Absolute 1.70 1.00 - 5.00 K/mcL LAB HEMETOLOGY METHOD 01/18/2024 1:33 PM [facility] Monocytes Absolute 0.26 0.20 - 1.00 K/mcL LAB HEMETOLOGY METHOD 01/18/2024 1:33 PM EST [facility] Eosinophils Absolute 0.32 0.00 - 0.50 K/[facility] LAB HEMETOLOGY METHOD 01/18/2024 1:33 PM [facility] Basophils Absolute 0.04 0.00 - 0.20 K/mcL LAB HEMETOLOGY METHOD 01/18/2024 1:33 PM EST [facility] Immature Granulocytes Absolute 0.02 0.00 - 0.03 K/mcL LAB HEMETOLOGY METHOD 01/18/2024 1:33 PM [facility] Blood Venous blood specimen / Unknown Venipuncture / Unknown 01/18/2024 6:29 AM EST 01/18/2024 12:24 PM EST us Gary Kam MD LAB BLOOD ORDERABLES Final Resul t [facility] [address] [place] [address], * Travel phlebotomy fee (01/18/2024 6:29 AM EST) [facility] TRAVEL PHLEBOTOMY FEE Completed 01/18/2024 1:02 PM EST [facility] Blood Venous blood specimen / Unknown Venipuncture / Unknown 01/18/2024 6:29 AM EST 01/18/2024 12:24 PM EST us Gary Kam MD LAB BLOOD ORDERABLES Final Resul t [facility] [address] [place] [address], [place] [phone] * (ABNORMAL) Comprehensive metabolic panel (01/18/2024 6:29 AM EST) Sodium 140 133 - 145 mmol/L LAB CHEMISTRY METHOD 01/18/2024 4:18 PM [facility] Potassium 5.3 3.5 - 5.5 mmol/L LAB CHEMISTRY METHOD 01/18/2024 4:18 PM [facility] Chloride 111(H) 96 - 110 mmol/L LAB CHEMISTRY METHOD 01/18/2024 4:18 PM [facility] CO2 24 21 - 32 mmol/L LAB CHEMISTRY METHOD 01/18/2024 4:18 PM [facility] Anion Gap 5 3 - 11 LAB CHEMISTRY METHOD 01/18/2024 4:18 PM [facility] Glucose 69(L) 70 - 100 mg/dL LAB CHEMISTRY METHOD 01/18/2024 4:18 PM [facility] BUN 11 5 - 25 mg/dL LAB CHEMISTRY METHOD 01/18/2024 4:18 PM [facility] Creatinine 0.82 0.50 - 1.10 mg/dL LAB CHEMISTRY METHOD 01/18/2024 4:18 PM [facility] eGFR 84 >=60 mL/min/1. 73m2 LAB CHEMISTRY METHOD 01/18/2024 4:18 PM [facility] Comment:Calculation based on the Chronic Kidney Disease Epidemiology Collaboration (CKD-EPI) equation refit without adjustment for race. BUN/Creatinine Ratio 13.4 LAB CHEMISTRY METHOD 01/18/2024 4:18 PM [facility] Calcium 10.6(H) 8.5 - 10.5 mg/dL LAB CHEMISTRY METHOD 01/18/2024 4:18 PM [facility] AST (SGOT) 36 10 - 42 unit/L LAB CHEMISTRY METHOD 01/18/2024 4:18 PM [facility] ALT (SGPT) 34 10 - 60 unit/L LAB CHEMISTRY METHOD 01/18/2024 4:18 PM [facility] Alkaline Phosphatase 167(H) 42 - 121 unit/L LAB CHEMISTRY METHOD 01/18/2024 4:18 PM [facility] Total Protein 9.0(H) 6.0 - 8.0 g/dL LAB CHEMISTRY METHOD 01/18/2024 4:18 PM [facility] Albumin 4.7 3.2 - 5.0 g/dL LAB CHEMISTRY METHOD 01/18/2024 4:18 PM [facility] Total Bilirubin 0.6 0.0 - 1.4 mg/dL LAB CHEMISTRY METHOD 01/18/2024 4:18 PM [facility] Blood Venous blood specimen / Unknown Venipuncture / Unknown 01/18/2024 6:29 AM EST 01/18/2024 12:24 PM EST us Gary Kam MD LAB BLOOD ORDERABLES Final Resul t [facility] [address] [place] [address], documented in this encounter Visit Diagnoses Diagnosis Bipolar disorder, unspecified (CMS/HCC V24, CMS/HCC V28) Bipolar disorder, unspecified documented in this encounter Care Teams Hospice Admitting Clerk Relationship Specialty Start Date End Date Valarie Akbar MD [address] [place] [address] , [address] [facility] Physician Associ D/B/A: [facility] [place], [place] PCP - General Internal Medicine 02/18/24 documented as of this encounter
--- OUTSIDE RECORDS SUMMARY | 2024-11-15 10:02 | XMS_ITS | Clinical Summary ---
Author Organization [address] Address [address] [place] [phone] Phone Care Team Providers Care Medical Social Consultant Name Role Phone Valarie Akbar MD Primary Care Provider [phone] Allergies Active Allergy Reactions Criticality Noted Date Comments Fentanyl 04/18/2024 Penicillins 04/18/2024 Medications diclofenac (Voltaren Arthritis Pain) 1 % topical gel Apply 4 g topically 2 (two) times a day. 240 g 1 10/28/19 25 Encounters Date Type Department Care Team Description 10/11/2024 10:30 AM EDT Office Visit Orthopedic Surgery [address] [phone] Mateo Weathers DPM Sesamoiditis of left foot (Primary Dx); Dermatofibroma of left lower leg; Acquired hammer toe of right foot; Hammer toe of left foot; Acquired hallux valgus of right foot; Dermatophytosis of nail; Corns and callosities; Ingrowing nail; Pain in toe of right foot; Pain in toe of left foot; Difficulty walking 08/28/2024 2:00 PM EDT Office Visit Orthopedic [address] [phone] Mateo Weathers DPM Sesamoiditis of left foot [...] AM EST Office Visit Orthopedic Surgery - [place] [address] [phone] Mateo Weathers, DPM [address] [phone] Health Maintenance Due Date Last Done Comments Breast Cancer Screening 1970 Hepatitis B Vaccines (1 of 3 - 19+ 3-dose series) 01/13/1987 Zoster Vaccines (1 of 2) 01/13/1987 Cervical Cancer Screening: Pap Smear 01/13/1989 Pneumococcal Vaccine: 50+ Years (1 of 1 - PCV) 01/13/2018 Colorectal Cancer Screening: Colonoscopy 01/18/2024 HIV Screening 01/18/2024 Hepatitis C Screening 01/18/2024 Social Influencers of Health Screening 01/18/2024 Depression Screening 03/15/2024 COVID-19 Vaccine ( season) 2024 12/29/2022, 03/25/2022, 03/04/2021, Additional history exists Influenza [...] patient's age to complete this topic Insurance [facility] Member Subscriber Plan / Payer (Ef fective 2016-Present) Name:BRIGHTFabio GLOVERMELINDA BILLS Relation to Subscriber:Self Name:Juan Koenigiadon Chinchilla Payer ID:[id number] Group ID:[id number] Type:Not on file Address: [facility] [address] [id number] MEDICA[place] - [place] Care Teams Medical Social Consultant Relationship Specialty Start Date End Date Valarie Akbar MD [address] [place] [address] , [address] Physician Associ D/B/A: [facility] [place], [place] PCP - General Internal Medicine 02/18/24
--- OUTSIDE RECORDS SUMMARY | 2024-11-15 10:02 | XMS_ITS | Clinical Summary ---
Author Organization [facility] Address [address] [facility] [address] [place] [address] Care Team Providers Care Dicer Machine Operator Name Role Phone Unavailable Primary Care Provider [...] patient's age to complete this topic Insurance [facility] STANDARD [facility] ADV
== END 2024-11-15 12:23 | disposition home or self-care (01) ==
LOC: HO.HMCH 09:18
PROVIDERS: PCP Internal Medicine; Visit Provider Internal Medicine
DX: Z01.818 Encounter for other preprocedural examination (principal); F31.32 Bipolar disorder, current episode depressed, moderate; F41.1 Generalized anxiety disorder; M16.12 Unilateral primary osteoarthritis, left hip

== ENCOUNTER → 2024-11-15 09:17 | Outpatient (BNVA) | payer OTHER, SELFPAY | PROVIDERS: PCP Internal Medicine; Visit Provider Internal Medicine | DX: Z01.818 Encounter for other preprocedural examination (principal); F31.81 Bipolar II disorder; F41.1 Generalized anxiety disorder; M16.12 Unilateral primary osteoarthritis, left hip | CPT/HCPCS: 96127; 99212 ==

== ENCOUNTER 2024-11-21 17:33 | Emergency (ER) | payer OTHER, SELFPAY ==
--- NOTE | ~2024-11-21 | XR_ITS ---
CLINICAL HISTORY: pain 3 view, pelvis and left hip Comparison: CR/SR - XR HIP LT W PEL1V - 09/22/24 07:19 EDT Findings: No acute fracture deformity. No disruption of the pelvic ring. Previous L5-S1 interbody fusion. There has been a previous right hip total arthroplasty. Arthroplasties in anatomic alignment without evidence of periprosthetic fracture or loosening. Moderate joint space narrowing of the left hip with acetabular spurring. Joint space narrowing of the superior joint space. Small collar osteophytes of the left hip. The soft tissues are unremarkable. IMPRESSION: 1. Advanced osteoarthritis of the left hip. 2. No acute fracture deformity of the left hip or pelvis. This document has been electronically signed by: Jatinder Martinez MD on 11/21/2024 19:24:14
--- NOTE | ~2024-11-21 | CT_ITS ---
CLINICAL HISTORY: fall, +head strike CT head without contrast Comparison: CT/SR - CT HEAD WITHOUT IV CONTRAST - 09/05/24 09:58 EDT Findings: No intra-axial mass, midline shift, hydrocephalus, or acute hemorrhage. No significant atrophy-like change or white matter disease. Minimal mucosal thickening in the paranasal sinuses. The orbits are unremarkable. No skull fracture. IMPRESSION: 1. No acute intracranial findings. This document has been electronically signed by: Jatinder Martinez MD on 11/21/2024 20:41:03
--- NOTE | ~2024-11-21 | CT_ITS ---
CLINICAL HISTORY: fall CT cervical spine without contrast Comparison: CT/SR - CT HEAD WITHOUT IV CONTRAST - 09/05/24 09:58 EDT Findings: Vertebral alignment is within normal limits. Moderate degenerative changes of the cervical spine. No acute fractures or dislocations. No acute findings on limited view of the intracranial contents. Soft tissues of the neck are normal. Lung apices are clear. IMPRESSION: No acute findings. This document has been electronically signed by: Jatinder Martinez MD on 11/21/2024 20:23:59
--- NOTE | ~2024-11-21 | XR_ITS ---
CLINICAL HISTORY: pain 4 view left knee Comparison: CR/SR - XR KNEE LT 4V - 09/22/24 07:26 EDT Findings: No fractures or dislocations. No significant arthritic change or erosions. No joint effusion. No radiopaque foreign body. Enthesophyte at the superior pole of the patella present. IMPRESSION: 1. No acute findings. This document has been electronically signed by: Jatinder Martinez MD on 11/21/2024 19:26:14
[2024-11-21 18:17] VITALS: BP 120/64; PULSE 73; RESP 18; TEMP 37.2; O2SAT 99; BMI 33.6
--- NOTE | 2024-11-21 18:18 | ED_ITS ---
HPI - Fall General Chief Complaint: Fall Stated Complaint: fell in shower today/pcp wants surgery clearance Time Seen by Provider: 11/21/24 20:55 History of Present Illness ED Provider: zurdo HPI Narrative: [age] female the patient has chronic left hip arthritis is due in about a month for total hip replacement in his chronic recurrent falls from lightheadedness this happened once again in the shower today she fell straight down onto the left knee she was unable to describe any particular strike or injury other than in the left knee but feels like she ?hit everything on the way down?. Mostly complaining of pain to the left knee left hip crease. Baseline ambulatory status is with walker no numbness tingling weakness. Denies headache vomiting chest pain back injury or upper extremity pain Related Data Previous Rx's ?Medication ?Instructions ?Recorded duloxetine 30 mg capsule,delayed 30 mg PO DAILY 15 day s #15 caps 07/06/23 release duloxetine 60 mg capsule,delayed 60 mg PO QAM 15 days #15 caps 07/06/23 release oxcarbazepine 150 mg tablet 150 mg PO BID 15 days #30 tabs 07/06/23 oxcarbazepine 600 mg tablet 600 mg PO BID 15 days #30 tabs 07/06/23 prazosin 1 mg capsule 1 mg PO BEDTIME 15 days #15 caps 07/06/23 quetiapine 400 mg tablet 400 mg PO BEDTIME 15 days #1 5 tabs 07/06/23 benztropine 1 mg tablet 1 mg PO .QHS #30 tabs quetiapine 50 mg tablet 50 mg PO BID PRN severe anxi ety or 07/15/23 agitation 15 days #30 tabs lorazepam 0.5 mg tablet (Ativan) 1 mg (2 x 0.5 mg) PO DAILY PRN 09/27/23 anxiety 1 day #2 tabs acetaminophen 500 mg tablet 1,000 mg (2 x 500 mg) PO Q 6H PRN 01/12/24 (Tylenol Extra Strength) fever or pain #20 tabs clonazepam 1 mg tablet 1 mg PO BID #6 tabs 01/17/24 diclofenac sodium 1 % topical gel 2 g topical BID #100 grams 05/13/24 (Arthritis Pain (diclofenac)) Rollator with seat #1 ea 06/14/24 diclofenac sodium 1 % topical gel 2 g topical BID #50 grams 08/20/24 oxycodone 5 mg tablet 5 mg PO Q6H PRN pain #10 tab s 08/20/24 naproxen 500 mg tablet 500 mg PO BID PRN pain #14 t abs 09/05/24 hydrocodone 5 mg-acetaminophen 325 1 tab PO Q6H PRN pa in #10 tabs 09/22/24 mg tablet acetaminophen 500 mg capsule 1,000 mg (2 x 500 mg) PO Q8H PRN 10/10/24 fever or pain #14 caps ibuprofen 400 mg tablet 400 mg PO Q6H PRN pain #14 t abs 10/10/24 oxycodone 5 mg tablet 5 mg PO Q6H PRN pain #12 tab s 10/10/24 folding cane with seat #1 ea 11/10/24 cane #1 ea 11/15/24 toilet seat elevator #1 ea 11/15/24 tramadol 50 mg tablet 50 mg PO Q8H PRN pain 30 day s #90 11/15/24 tabs Allergies Allergy/AdvReac Type Severity Reaction Status Date / Time fentanyl (FENTANYL) Allergy Intermediate VOMITING Verified 11/21/24 18:18 Penicillins (PENICILLINS) Allergy Intermediate ANAPHYLAXIS Verified 11/21/24 18:18 sertraline (From ZOLOFT) Allergy Intermediate ANXIETY Verified 11/21/24 18:18 zolpidem (From AMBIEN) Allergy Intermediate suicidal Verified 11/21/24 18:18 attempt with zolpidem PMFSH Past Medical History Medical History (Updated 11/22/24 @ 00:00 by Background Daemon) Severe major depression without psychotic features MDD (major depressive disorder), recurrent episode, moderate Frequent falls Shoulder pain, bilateral Lumbar pain Screening for cervical cancer Osteoarthritis of right knee Urinary incontinence Skin lesion Right sided abdominal pain Cervical radiculopathy Osteoarthritis of acromioclavicular joint Rotator cuff tendonitis Chronic right shoulder pain Cervical strain Polyarthralgia Carpal tunnel syndrome Bipolar disorder Depression Anxiety Hypovitaminosis D Constipation by delayed colonic transit Surgical History (Updated 11/15/24 @ 09:55 by Valarie Akbar MD) History of lumbar surgery Hx of colonoscopy History of surgery History of right hip replacement History of hemorrhoidectomy History of bunionectomy History of cholecystectomy History of appendectomy Family History Family History Father Depression Prostate cancer Chronic mental illness Mother Diabetes Cancer Breast cancer Maternal Aunt Breast cancer Family/Other Chronic mental illness Other Mental health disorder Social History Social History Household Members: Other Household Members Other:: My dog Housing: House Alcohol intake: never Patient Tobacco Use Status: Never used Tobacco e-Cigarette/Vaping Use: Never Used Second Hand Smoke Exposure: No Substance Use Type: Marijuana Advance Directives: Yes Advance Directives on File: Yes Advance Directives Date on File: 01/17/24 service: No Current occupational status: disabled 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 Head: Atraumatic Eyes: Anicteric, Normal conjunctiva. ENT: Moist mucosa, no pallor. ? Neck: Supple. Skin: ?No observable rash or bruising on exposed or examined skin Respiratory: Breathing comfortably, No distress.Clear to auscultation bilaterally, symmetric chest expansion, No wheeze, rales, ronchi. Cardiovascular: Regular rate and rhythm. No murmurs or rub. Well perfused periphery, warm extremities. No edema. ? Abdominal: No focal tenderness. Soft, no objective distension. No palpable masses or obvious organomegaly. ?No guarding, no rebound tenderness or other peritoneal findings. : No flank tenderness. Neuro: Alert. Gross movement of all extremities intact. ? Psych: Calm. Cooperative. MSK: No grossly visible deformity. Left knee tender diffusely with limited range of motion flexion extension secondary to pain. Mildly swollen. Tender in the left anterior hip she says this is chronic there was limited range of motion there. Right lower extremity normal nontender full range of motion Vital signs: See flowsheet Vital Signs: Vital Signs: Last Vital Signs Temp 97.1 F 11/21/24 22:31 Pulse 71 11/21/24 22:31 Resp 15 11/21/24 22:31 BP 102/72 11/21/24 22:31 Pulse Ox 100 11/21/24 22:31 O2 Del Method Room Air 11/21/24 22:31 BMI result Body Mass Index 33.6 Course Course Course Narrative: This is an RME: Additional HPI, ROS, PE not included below will be deferred to primary provider. RME assessment and note performed by: Nidia Gimenez PA-C This is a [id number]-female, with a hx of MDD, osteoarthritis, depression, anxiety, who presents to the ER with complaints of slip and fall in the shower which occurred this afternoon. Reports that she hit her head, no LOC. Endorsing dizziness, unable to discern if this is worse now or not. Ambulatory, steady gait. No neuro deficits. Plan: CT head/neck, labs, EKG Medications Administered Discontinued Medications Generic Name Dose Route Start Last Admin Trade Name Freq PRN Reason Stop Dose Admin Acetaminophen 975 mg 11/21/24 21:30 11/21/24 21:40 Acetaminophen 325 Mg Tablet PO 11/21/24 21:31 975 mg ONCE ONE Administration Morphine Sulfate 15 mg 11/21/24 21:30 11/21/24 21:40 Morphine Sulfate Immed Release 15 Mg Tablet PO 11/21/24 21:31 15 mg ONCE ONE Administration Medical Decision Making Medical Decision Making MDM Narrative: Medical Decision Makin-year-old female fall from standing height with presyncopal lightheadedness consistent with previous multiple episodes of the same. Maybe vasovagal versus dehydration versus orthostasis this seems to be going on for many months. She struck the left knee in his chronic left hip pain. There was no fracture or overt dislocation or neurovascular compromise of the left lower extremity. She is able to bear some weight of the left knee and walks with a baseline walker. Offered subacute rehab patient is motivated to go home. Head and cervical spine CT without acute traumatic injuries Preliminary Favored Differential Diagnosis: Vasovagal, dehydration, orthostasis, dysrhythmia, electrolyte derangement, knee or hip bony injury or fracture, head or cervical spine injury among additional considered etiologies Testing Interpreted Independently: ?See below for details Radiology or Lab testing Results Reviewed: ?See below for details Consults: ?See below for details Independent Historians/External Chart Reviews: ?See below for details Social Determinants of Health Impacting MDM/Planning: ?See below for details Admission/Observation Consideration of admission/observation: Escalation of care including admission/observation considered Lab Data MDM Lab Attestation statement: I reviewed the patient's lab results. 11/21/24 18:34 11/21/24 18:33 Labs: Lab Results 11/21/24 11/21/24 Range/Units 18:33 18:34 WBC 6.9 (4.8-10.8) X10*3/uL RBC 4.07 L (4.20-5.50) X10*6/uL Hgb 12.7 (12.0-16.0) g/dl Hct 37.1 (37.0-47.0) % MCV 91.2 (80.0-98.0) fL MCH 31.2 (27.0-33.0) pg MCHC 34.2 (31.0-35.0) g/dl RDW 13.3 (11.0-16.0) % Plt Count 218 (160-400) X10*3/uL MPV 8.3 L (9.4-12.3) fL Immature Gran % (Auto) 0.1 (0.0-0.4) % Neut % (Auto) 49.7 (45-73) % Lymph % (Auto) 36.4 (20-40) % [place] % (Auto) 7.7 (2-11) % Eos % (Auto) 5.4 H (0-4) % Baso % (Auto) 0.7 (0-2) % Lymph # (Auto) 2.5 (1.2-4.9) X10*3/uL [place] # (Auto) 0.5 (0.1-1.2) X10*3/uL Eos # (Auto) 0.4 (0.0-0.4) X10*3/uL Baso # (Auto) 0.1 (0.0-0.2) X10*3/uL Abs Immat Gran (auto) 0.01 (0.00-0.03) X10*3/uL Absolute Neuts (auto) 3.4 (2.0-8.3) x10*3/uL Absolute Nucleated RBC 0.000 (0.0-0.012) X10*3/uL Nucleated RBC % (auto) 0.0 (0.0-0.2) /100WBC Sodium 142 (135-145) mmol/L Potassium 3.8 (3.3-5.1) mmol/L Chloride 108 (96-108) mmol/L Carbon Dioxide 26 (22-29) mmol/L Anion Gap 12 (12-20) BUN 11 (9-16) mg/dL Creatinine 0.75 (0.5-1.4) mg/dL Estim Creat Clear Calc 93.6 Estimated GFR > 60 Random Glucose 83 (60-115) mg/dL Calcium 8.8 D (8.4-10.2) mg/dL Magnesium 2.3 (1.6-2.6) mg/dL Total Bilirubin 0.2 (0.0-1.0) mg/dL Direct Bilirubin < 0.2 (0.0-0.5) mg/dL AST 19 (5-31) U/L ALT 15 (0-31) U/L Alkaline Phosphatase 135 H (39-117) U/L Troponin I High Sens < 2.7 (<3.5-17.0) ng/L Total Protein 7.1 (6.5-8.0) g/dL Albumin 4.2 (3.5-5.0) g/dL Independent Interpretation I performed an independent interpretation of an: Plain X-Ray (Knee x-ray without fracture) Radiology Impression Discussion of test interpretation with radiology: I have reviewed the radiologist's reading. Discharge Plan Discharge Clinical Impression: Recurrent falls, Injury, knee Patient Disposition: Home, Self-Care Instructions: Crutch Instructions (ED) Additional Instructions: You were evaluated for recurrent fall and chronic dizziness lightheadedness. You fell on your shower and injured your left leg. You had an x-ray of your hip and knee on the left side without acute bony injuries. You also had a CT scan of your head and neck without traumatic injuries identified. Please call your primary doctor to follow up. Prescriptions: No Action (DME) Rollator with seat See Rx Instructions .Route .MEDSUPPLY Qty: 1 0RF Rx Instructions: As directed (DME) folding cane with seat See Rx Instructions .Route .MEDSUPPLY Qty: 1 0RF Rx Instructions: As directed oxcarbazepine 150 mg tablet 150 mg PO BID 15 Days Qty: 30 1RF prazosin 1 mg capsule 1 mg PO BEDTIME 15 Days Qty: 15 1RF oxcarbazepine 600 mg tablet 600 mg PO BID 15 Days Qty: 30 1RF duloxetine 60 mg capsule,delayed release(DR/EC) 60 mg PO QAM 15 Days Qty: 15 1RF quetiapine 400 mg tablet 400 mg PO BEDTIME 15 Days Qty: 15 0RF duloxetine 30 mg capsule,delayed release(DR/EC) 30 mg PO DAILY 15 Days Qty: 15 1RF benztropine 1 mg tablet 1 mg PO .QHS Qty: 30 0RF quetiapine 50 mg tablet 50 mg PO BID PRN (Reason: severe anxiety or agitation) 15 Days Qty: 30 1RF clonazepam 1 mg tablet 1 mg PO BID Qty: 6 0RF diclofenac sodium 1 % gel 2 g topical BID Qty: 50 0RF Rx Instructions: apply to hip and knee oxycodone 5 mg tablet 5 mg PO Q6H PRN (Reason: pain) Qty: 10 0RF Rx Instructions: Partial Fill upon patient request. acetaminophen [Tylenol Extra Strength] 500 mg tablet 1,000 mg PO Q6H PRN (Reason: fever or pain) Qty: 20 0RF diclofenac sodium [Arthritis Pain (diclofenac)] 1 % gel 2 g topical BID Qty: 100 0RF Rx Instructions: apply to joint as needed for pain naproxen 500 mg tablet 500 mg PO BID PRN (Reason: pain) Qty: 14 0RF hydrocodone-acetaminophen 5-325 mg tablet 1 tab PO Q6H PRN (Reason: pain) Qty: 10 0RF Rx Instructions: partial fill okay; Partial Fill upon patient request. oxycodone 5 mg tablet 5 mg PO Q6H PRN (Reason: pain) Qty: 12 0RF Rx Instructions: Partial Fill upon patient request. ibuprofen 400 mg tablet 400 mg PO Q6H PRN (Reason: pain) Qty: 14 0RF acetaminophen 500 mg capsule 1,000 mg PO Q8H PRN (Reason: fever or pain) Qty: 14 0RF lorazepam [Ativan] 0.5 mg tablet 1 mg PO DAILY PRN (Reason: anxiety) 1 Days Qty: 2 0RF Rx Instructions: Take 45 minutes before MRI. tramadol 50 mg tablet 50 mg PO Q8H PRN (Reason: pain) 30 Days Qty: 90 0RF (DME) cane Device See Rx Instructions .Route Qty: 1 0RF Rx Instructions: As directed (DME) toilet seat elevator See Rx Instructions .Route .MEDSUPPLY Qty: 1 0RF Rx Instructions: As directed Interventions: ED Discharge Assessment Last Done: 11/21/24 22:31 Discharge Date/Time: 11/21/24 22:31 Print Language: Bulgarian
--- NOTE | 2024-11-21 18:21 | ECG_ITS ---
Test Reason : DIZINESS Blood Pressure : */* mmHG Vent. Rate : 69 BPM Atrial Rate : 69 BPM P-R Int : 170 ms QRS Dur : 86 ms QT Int : 398 ms P-R-T Axes : 27 14 18 degrees QTcB Int : 426 ms Normal sinus rhythm Nonspecific T wave abnormality Abnormal ECG When compared with ECG of 10-Oct-2024 10:18, No significant change was found Referred By: Nidia Gimenez Electronically Signed By: ANIKET VALLADARES MD
[2024-11-21 18:41] LABS: MANUAL DIFF FLAG NO
[2024-11-21 18:47] LABS: Hematocrit 37.1 % (37.0-47.0); Hemoglobin 12.7 g/dl (12.0-16.0); Imm Gran Abs Auto 0.01 X10*3/uL (0.00-0.03); Imm Gran Pct Auto 0.1 % (0.0-0.4); Lymphocytes Absolute Auto 2.5 X10*3/uL (1.2-4.9); Mean Corpuscular HGB Conc 34.2 g/dl (31.0-35.0); Mean Corpuscular Hemoglobin 31.2 pg (27.0-33.0); Mean Corpuscular Volume 91.2 fL (80.0-98.0); NRBC Abs Auto 0.000 X10*3/uL (0.0-0.012); NRBC Pct Auto 0.0 /100WBC (0.0-0.2); Platelet Count 218 X10*3/uL (160-400); Red Blood Count 4.07 X10*6/uL (4.20-5.50); White Blood Count 6.9 X10*3/uL (4.8-10.8)
[2024-11-21 19:08] LABS: Alanine Aminotransferase 15 U/L (0-31); Albumin Level 4.2 g/dL (3.5-5.0); Alkaline Phosphatase 135 U/L (39-117); Anion Gap 12 (12-20); Aspartate Amino Transferase 19 U/L (5-31); Blood Urea Nitrogen 11 mg/dL (9-16); Calcium 8.8 mg/dL (8.4-10.2); Carbon Dioxide 26 mmol/L (22-29); Chloride 108 mmol/L (96-108); Creatinine Clr Calc Pharmacy 93.6; Estimated Glomerular Filt Rate > 60; Magnesium 2.3 mg/dL (1.6-2.6); Potassium 3.8 mmol/L (3.3-5.1); Sodium 142 mmol/L (135-145); Total Protein 7.1 g/dL (6.5-8.0)
[2024-11-21 19:16] LABS: Troponin-I High Sensitivity < 2.7 ng/L (<3.5-17.0)
[2024-11-21 20:49] VITALS: BP 102/72; PULSE 71; RESP 15; TEMP 36.2; O2SAT 100
--- OUTSIDE RECORDS SUMMARY | 2024-11-21 21:11 | XMS_ITS | Encounter Summary ---
Author Organization [facility] Address [address] [place] [address] Care Team Providers Care Parachute Accessories Attacher Name Role Phone Valarie Akbar MD Primary Care Provider [phone] Encounter Details Date Type Department Care Team (Late st Contact Info) Description 01/18/2024 Lab Requisition [facility] - Main Lab [address] [place] [address] Gary Kam MD [address] [place] [address] [address] [place], [phone] Bipolar disorder, unspecified (CMS/HCC V24, CMS/HCC [...] AM EST Office Visit Orthopedic Surgery - [place] [address] [phone] Mateo Weathers DPM [address] [phone] documented as of this encounter Procedures Procedure [...] LAB CHEMISTRY METHOD 01/18/2024 8:31 PM EST [facility] Mean Bld Glu Estim. 100 mg/dL LAB CHEMISTRY METHOD 01/18/2024 8:31 PM [facility] Blood Venous blood specimen / Unknown 01/18/2024 6:29 AM EST 01/18/2024 1:32 PM EST us Gary Kam MD LAB BLOOD ORDERABLES Final Resul t [facility] [address] [place] [address], * CBC auto differential (01/18/2024 6:29 AM EST) Pathologist [facility] WBC 5.4 4.8 - 10.8 K/mcL LAB HEMETOLOGY METHOD 01/18/2024 1:33 PM EST [facility] RBC 4.80 3.80 - 4.80 M/mcL LAB HEMETOLOGY METHOD 01/18/2024 1:33 PM EST [facility] Hemoglobin 14.9 11.5 - 16.0 g/dL LAB HEMETOLOGY METHOD 01/18/2024 1:33 PM EST [facility] Hematocrit 45.7 35.0 - 47.0 % LAB HEMETOLOGY METHOD 01/18/2024 1:33 PM [facility] MCV 95.0 79.0 - 98.0 FL LAB HEMETOLOGY METHOD 01/18/2024 1:33 PM [facility] MCH 31.0 27.0 - 32.0 pcg LAB HEMETOLOGY METHOD 01/18/2024 1:33 PM [facility] MCHC 32.6 32.0 - 37.0 g/dL LAB HEMETOLOGY METHOD 01/18/2024 1:33 PM [facility] RDW 13.2 11.0 - 15.0 % LAB HEMETOLOGY METHOD 01/18/2024 1:33 PM [facility] Platelets 307 130 - 400 K/mcL LAB HEMETOLOGY METHOD 01/18/2024 1:33 PM [facility] MPV 9.2 7.0 - 11.0 FL LAB HEMETOLOGY METHOD 01/18/2024 1:33 PM [facility] NRBC 0.0 <1.0 % LAB HEMETOLOGY METHOD 01/18/2024 1:33 PM [facility] NRBC Absolute 0.00 <0.10 K/mcL LAB HEMETOLOGY METHOD 01/18/2024 1:33 PM [facility] Neutrophils Relative 56.6 % LAB HEMETOLOGY METHOD 01/18/2024 1:33 PM [facility] Lymphocytes Relative 31.6 % LAB HEMETOLOGY METHOD 01/18/2024 1:33 PM [facility] Monocytes Relative 4.8 % LAB HEMETOLOGY METHOD 01/18/2024 1:33 PM [facility] Eosinophils Relative 5.9 % LAB HEMETOLOGY METHOD 01/18/2024 1:33 PM [facility] Basophils Relative 0.7 % LAB HEMETOLOGY METHOD 01/18/2024 1:33 PM EST [facility] Immature Granulocytes Relative 0.4 % LAB HEMETOLOGY METHOD 01/18/2024 1:33 PM EST [facility] Neutrophils Absolute 3.04 1.50 - 7.00 K/mcL LAB HEMETOLOGY METHOD 01/18/2024 1:33 PM EST [facility] Lymphocytes Absolute 1.70 1.00 - 5.00 K/mcL LAB HEMETOLOGY METHOD 01/18/2024 1:33 PM [facility] Monocytes Absolute 0.26 0.20 - 1.00 K/mcL LAB HEMETOLOGY METHOD 01/18/2024 1:33 PM EST [facility] Eosinophils Absolute 0.32 0.00 - 0.50 K/[facility] LAB HEMETOLOGY METHOD 01/18/2024 1:33 PM [facility] Basophils Absolute 0.04 0.00 - 0.20 K/mcL LAB HEMETOLOGY METHOD 01/18/2024 1:33 PM EST [facility] Immature Granulocytes Absolute 0.02 0.00 - 0.03 K/mcL LAB HEMETOLOGY METHOD 01/18/2024 1:33 PM [facility] Blood Venous blood specimen / Unknown Venipuncture / Unknown 01/18/2024 6:29 AM EST 01/18/2024 12:24 PM EST us Gary Kam MD LAB BLOOD ORDERABLES Final Resul t [facility] [address] [place] [address], * Travel phlebotomy fee (01/18/2024 6:29 AM EST) [facility] TRAVEL PHLEBOTOMY FEE Completed 01/18/2024 1:02 PM EST [facility] Blood Venous blood specimen / Unknown Venipuncture / Unknown 01/18/2024 6:29 AM EST 01/18/2024 12:24 PM EST us Gary Kam MD LAB BLOOD ORDERABLES Final Resul t [facility] [address] [place] [address], [place] [phone] * (ABNORMAL) Comprehensive metabolic panel (01/18/2024 6:29 AM EST) Sodium 140 133 - 145 mmol/L LAB CHEMISTRY METHOD 01/18/2024 4:18 PM [facility] Potassium 5.3 3.5 - 5.5 mmol/L LAB CHEMISTRY METHOD 01/18/2024 4:18 PM [facility] Chloride 111(H) 96 - 110 mmol/L LAB CHEMISTRY METHOD 01/18/2024 4:18 PM [facility] CO2 24 21 - 32 mmol/L LAB CHEMISTRY METHOD 01/18/2024 4:18 PM [facility] Anion Gap 5 3 - 11 LAB CHEMISTRY METHOD 01/18/2024 4:18 PM [facility] Glucose 69(L) 70 - 100 mg/dL LAB CHEMISTRY METHOD 01/18/2024 4:18 PM [facility] BUN 11 5 - 25 mg/dL LAB CHEMISTRY METHOD 01/18/2024 4:18 PM [facility] Creatinine 0.82 0.50 - 1.10 mg/dL LAB CHEMISTRY METHOD 01/18/2024 4:18 PM [facility] eGFR 84 >=60 mL/min/1. 73m2 LAB CHEMISTRY METHOD 01/18/2024 4:18 PM [facility] Comment:Calculation based on the Chronic Kidney Disease Epidemiology Collaboration (CKD-EPI) equation refit without adjustment for race. BUN/Creatinine Ratio 13.4 LAB CHEMISTRY METHOD 01/18/2024 4:18 PM [facility] Calcium 10.6(H) 8.5 - 10.5 mg/dL LAB CHEMISTRY METHOD 01/18/2024 4:18 PM [facility] AST (SGOT) 36 10 - 42 unit/L LAB CHEMISTRY METHOD 01/18/2024 4:18 PM [facility] ALT (SGPT) 34 10 - 60 unit/L LAB CHEMISTRY METHOD 01/18/2024 4:18 PM [facility] Alkaline Phosphatase 167(H) 42 - 121 unit/L LAB CHEMISTRY METHOD 01/18/2024 4:18 PM [facility] Total Protein 9.0(H) 6.0 - 8.0 g/dL LAB CHEMISTRY METHOD 01/18/2024 4:18 PM [facility] Albumin 4.7 3.2 - 5.0 g/dL LAB CHEMISTRY METHOD 01/18/2024 4:18 PM [facility] Total Bilirubin 0.6 0.0 - 1.4 mg/dL LAB CHEMISTRY METHOD 01/18/2024 4:18 PM [facility] Blood Venous blood specimen / Unknown Venipuncture / Unknown 01/18/2024 6:29 AM EST 01/18/2024 12:24 PM EST us Gary Kam MD LAB BLOOD ORDERABLES Final Resul t [facility] [address] [place] [address], documented in this encounter Visit Diagnoses Diagnosis Bipolar disorder, unspecified (CMS/HCC V24, CMS/HCC V28) Bipolar disorder, unspecified documented in this encounter Care Teams Parachute Accessories Attacher Relationship Specialty Start Date End Date Valarie Akbar MD [address] [place] [address] , [address] [facility] D/B/A: [facility] [place], [place] PCP - General Internal Medicine 02/18/24 documented as of this encounter
--- OUTSIDE RECORDS SUMMARY | 2024-11-21 21:11 | XMS_ITS | Clinical Summary ---
Author Organization [facility] Address [address] [facility] 7[address] [place] [address] Care Team Providers Care Line Cleaner Name Role Phone Unavailable Primary Care Provider [...] of 2) 01/13/2018 COVID-19 Vaccine ( season) 2024 12/29/2022, 03/25/2022, [...] patient's age to complete this topic Insurance [facility] STANDARD [facility] ADV
--- OUTSIDE RECORDS SUMMARY | 2024-11-21 21:11 | XMS_ITS | Clinical Summary ---
Author Organization [address] Address [address] [place] [phone] Phone Care Team Providers Care Back Facer Name Role Phone Valarie Akbar MD Primary Care Provider [phone] Allergies Active Allergy Reactions Criticality Noted Date Comments Fentanyl 04/18/2024 Penicillins 04/18/2024 Medications diclofenac (Voltaren Arthritis Pain) 1 % topical gel Apply 4 g topically 2 (two) times a day. 240 g 1 10/28/19 25 Encounters Date Type Department Care Team Description 10/11/2024 10:30 AM EDT Office Visit Orthopedic Surgery [address] [phone] Mateo Weathers DPM Sesamoiditis of left foot (Primary Dx); Dermatofibroma of left lower leg; Acquired hammer toe of right foot; Hammer toe of left foot; Acquired hallux valgus of right foot; Dermatophytosis of nail; Corns and callosities; Ingrowing nail; Pain in toe of right foot; Pain in toe of left foot; Difficulty walking 08/28/2024 2:00 PM EDT Office Visit Orthopedic [address] [phone] Mateo Weathers DPM Sesamoiditis of left foot [...] AM EST Office Visit Orthopedic Surgery - [place] [address] [phone] Mateo Weathers, DPM [address] [phone] Health Maintenance Due Date Last [...] patient's age to complete this topic Insurance [facility] Member Subscriber Plan / Payer (Ef fective 2016-Present) Name:BRIGHTFabio GLOVERMELINDA BILLS Relation to Subscriber:Self Name:Juan Koenigiadon Chinchilla Payer ID:[id number] Group ID:[id number] Type:Not on file Address: [facility] [address] [id number] MEDICAID - [place] Care Teams Back Facer Relationship Specialty Start Date End Date Valarie Akbar MD [address] [place] [address] , [address] Physician Associ D/B/A: [facility] [place], [place] PCP - General Internal Medicine 02/18/24
[2024-11-21] MEDS: Morphine Sulfate Immed Release 15 MG TABLET PO (21:40)
[2024-11-21 22:31] VITALS: BP 102/72; PULSE 71; RESP 15; TEMP 36.2; O2SAT 100
== END 2024-11-21 22:31 | disposition home or self-care (01) ==
PROVIDERS: Physician Assistant Medical; Emergency Provider Emergency Medicine; PCP Internal Medicine
DX: S89.92XA Unspecified injury of left lower leg, initial encounter (principal); R42 Dizziness and giddiness; R51.9 Headache, unspecified; M54.2 Cervicalgia; R94.31 Abnormal electrocardiogram [ECG] [EKG]; R10.2 Pelvic and perineal pain; M25.562 Pain in left knee; M25.552 Pain in left hip; W18.2XXA Fall in (into) shower or empty bathtub, initial encounter; Y93.E1 Activity, personal bathing and showering; Y92.002 Bathroom of unspecified non-institutional (private) residence as the place of occurrence of the external cause; Y99.8 Other external cause status; Z79.899 Other long term (current) drug therapy; Z91.81 History of falling
CPT/HCPCS: 36415; 70450; 72125; 73502; 73562; 80048; 80076; 83735; 84484; 85025; 93005; 99284

== ENCOUNTER → 2024-11-21 18:19 | Outpatient (BNV) | payer OTHER, SELFPAY | PROVIDERS: PCP Internal Medicine; Visit Provider Radiology Diagnostic Radiology | DX: Z04.3 Encounter for examination and observation following other accident (principal); S09.90XA Unspecified injury of head, initial encounter; M16.12 Unilateral primary osteoarthritis, left hip; M25.562 Pain in left knee; W19.XXXA Unspecified fall, initial encounter | CPT/HCPCS: 70450; 72125; 73502; 73562 ==

== ENCOUNTER → 2024-11-21 18:21 | Outpatient (BNV) | payer OTHER, SELFPAY | PROVIDERS: Emergency Provider Emergency Medicine; PCP Internal Medicine; Visit Provider Internal Medicine Cardiovascular Disease | DX: R94.31 Abnormal electrocardiogram [ECG] [EKG] (principal); R42 Dizziness and giddiness | CPT/HCPCS: 93010 ==

== ENCOUNTER → 2024-12-05 08:33 | Outpatient (BNVA) | payer OTHER, SELFPAY | PROVIDERS: PCP Internal Medicine | DX: Z01.818 Encounter for other preprocedural examination (principal) ==

== ENCOUNTER 2025-01-04 11:16 | Outpatient (AMB) | payer OTHER, SELFPAY ==
--- NOTE | 2025-01-04 11:04 | A.OFFVIS_ITS ---
Intake Visit Reasons: Pre-Op: L KRISTIN w/NE 01/09/25 Intake Note: Cathy is a 54 year old female who presents today for a preoperative left total hip arthroplasty, scheduled with Dr. Silvestre on 01/09/25. Pain management agreement reviewed and signed. Allergies fentanyl (FENTANYL) Allergy (Intermediate, Verified 01/04/25 11:28) VOMITING Penicillins (PENICILLINS) Allergy (Intermediate, Verified 01/04/25 11:28) ANAPHYLAXIS sertraline (From ZOLOFT) Allergy (Intermediate, Verified 01/04/25 11:28) ANXIETY zolpidem (From AMBIEN) Allergy (Intermediate, Verified 01/04/25 11:28) suicidal attempt with zolpidem Medication List - Last Reconciled 01/04/25 by Buddy Nix PA-C [bed side commode duration-99 days] benztropine 1 mg PO .QHS cane As directed clonazepam 1 mg PO BID diclofenac sodium 1% 2 grams topical BID duloxetine 60 mg PO QAM 15 days duloxetine 30 mg PO DAILY 15 days [folding cane with seat As directed] [Folding Front Wheeled walker Duration: 99 days] lorazepam (Ativan) 1 mg (2 x 0.5 mg) PO DAILY PRN 1 day oxcarbazepine 150 mg PO BID 15 days oxcarbazepine 600 mg PO BID 15 days prazosin 1 mg PO BEDTIME 15 days quetiapine 400 mg PO BEDTIME 15 days quetiapine 50 mg PO BID [Rollator with seat As directed] [shower chair As directed] [toilet seat elevator As directed] HPI HPI Pre-Op: L KRISTIN w/NE 01/09/25: Details: Ms. Mary Funk presents to the office today for a preop clearance. She is scheduled for left total hip arthroplasty with Dr. Silvestre on 01/09/2025. She has been experiencing left hip pain for quite some time which is affecting her ability to perform daily activities. Right total hip arthroplasty performed 12/[address] Silvestre Implants: 52 cup with a 36 -2.5 ceramic femoral head Accolade #4 Femoral stem with the 20 degree posterior lip Patient lives alone in a 2 level home with 3 stairs to enter. 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 Primary care clearance obtained on 11/15/[address] Robi Akbar: The patient is a 54-year-old female presenting with a preoperative evaluation for left total hip replacement. She has a history of bipolar disorder with mild major depression and anxiety, which is managed by psychiatry and has been stable with medications. Her surgical history includes lumbar surgery, right shoulder surgery, right hip replacement, hemorrhoidectomy, bunionectomy, appendectomy, and cholecystectomy. She does not smoke and has never smoked, and she does not consume alcohol. The last electrocardiogram performed in September showed normal sinus rhythm, and her complete blood count and comprehensive metabolic panel were within normal limits. She is able to perform 5 to 7 metabolic equivalents of tasks related to activities of daily living and uses a cane for ambulation. Patient is medically clear for surgery. By RCRI she has 0.3% of cardiac complications during surgery. 1. Encounter for other preprocedural examination Z01.818 The patient is medically cleared for the scheduled left total hip replacement surgery on January 09. 2. Bipolar II disorder F31.81 HCC 59 The patient's bipolar disorder with mild major depression and anxiety is stable under psychiatric care with current medications. 3. Unilateral primary osteoarthritis, left hip M16.12 [facility] Medical History (Updated 12/20/24 @ 10:01 by Deb Guzman RN) S/P ECT (electroconvulsive therapy) History of headache Numbness Severe major depression without psychotic features MDD (major depressive disorder), recurrent episode, moderate Frequent falls Shoulder pain, bilateral Lumbar pain Screening for cervical cancer Osteoarthritis of right knee Urinary incontinence Skin lesion Right sided abdominal pain Cervical radiculopathy Osteoarthritis of acromioclavicular joint Rotator cuff tendonitis Chronic right shoulder pain Cervical strain Polyarthralgia Carpal tunnel syndrome Bipolar disorder Depression Anxiety Hypovitaminosis D Constipation by delayed colonic transit Surgical History History of lumbar surgery Hx of colonoscopy History of surgery History of right hip replacement History of hemorrhoidectomy History of bunionectomy History of cholecystectomy History of appendectomy Family History Father Depression Prostate cancer Chronic mental illness Mother Diabetes Cancer Breast cancer Maternal Aunt Breast cancer Family/Other Chronic mental illness Other Mental health disorder Social History Household Members: Other Household Members Other:: My dog Housing: House Are you a primary animal care provider to a significant other at home: No Do you presently have visiting nurse or other home services: Yes Alcohol intake: never Patient Tobacco Use Status: Never used Tobacco e-Cigarette/Vaping Use: Never Used Second Hand Smoke Exposure: No Substance Use Type: Marijuana Advance Directives Date on File: 01/17/24 service: No Current occupational status: disabled 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 Cognitive needs: No Hearing needs: No Vision needs: Yes (glasses) Review of Systems Const All systems reviewed & are unremarkable except as noted in HPI and below Physical Exam Const General: cooperative, healthy appearing, comfortable, no acute distress, well developed and alert Orientation/consciousness: patient oriented x3 HEENT Head: Yes normal to inspection, Yes normocephalic and Yes atraumatic Eyes General: appearance normal, both eyes and all related structures Neck Neck: Yes normal visual inspection and Yes no lymphadenopathy Resp Effort & Inspection: normal respiratory effort and able to speak in complete sentences Cardio Rate: regular rate Peripheral pulses: Peripheral pulses 2+ throughout GI Inspection: Yes normal to inspection Palpation (GI): Soft to palpation Skin General skin exam: no rashes or lesions noted Neuro General: patient oriented x3 Extrem Other: Left hip no open wounds or abraisons. positive impingement sign Dorsalis pedis 2+. Antalgic gait with Trendelenburg pattern. Sensation intact. Psych Appearance: grossly normal Mental Status: mental status grossly normal Assessment & Plan Assessment & Plan (1) Osteoarthritis of left hip: Code(s): M16.12 - Unilateral primary osteoarthritis, left hip Category: Medical Plan: Ms Mary Funk has exhausted all conservative measures consisting of lifestyle modifications, physical therapy, analgesics, corticosteroid injections and use of assisted devices and continues to have significant limitations in daily activities along with decreased quality of life. Given the patient's desire to improve their quality of life, surgical intervention consisting of joint replacement surgery is recommended at this time.? We discussed the procedure in detail today; which includes pre op preparation with labs and reviewing patients medication regimen prior to surgery. She was sent to the lab for CBC, BMP and type and screen. I discussed at length the post op course which includes physical therapy services in the hospital along with the discharge routine and the patients plan upon discharge. Patient would like to be discharged to short-term rehab after her hospital stay. I explained to the patient, once they are DC home, they will receive VNA services which will include PT 2-3x per week. We also discussed their choice for outpatient PT once they are discharged from home PT. Post op DVT ppx was also discussed and the considering the patient does not have a history of DVT/PE and is not a smoker we will place her on aspirin 325 mg p.o. b.i.d. for DVT prophylaxis. I reviewed with the patient their post op pain medication regimen along with the detailed wean program. The patient did express understanding of this and agreed to the narcotic policy. Lastly, I discussed with the patient the risks to the procedure. Risks including but not limited to infection, injury to surrounding nerves, tissue , bone, small and large vessels, stiffness, aseptic loosening, fracture, dislocation, amputation, DVT/PE along with intraoperative complications including but not limited to . The patient does express understanding, all questions were answered and the patient would like to proceed? with left total hip arthroplasty with Dr. Silvestre. Consents were signed and dated while in the office today.? Post-Operative Recovery Notes: * DVT ppx : Aspirin * Hospital DC plan: [facility] * Physical Therapy: [facility] * Walker and shower chair Rx's [facility] - Contact information given to patient with instructions on how to obtain the items. Orders: Orders Complete Blood Count Auto Diff Today Z01.818 - Encounter for other preprocedural examination Basic Metabolic Panel Today Z01.818 - Encounter for other preprocedural examination Hemoglobin A1c Today E11.9 - Type 2 diabetes mellitus without complications Medications: New [bed rail] As directed 1 ea 0RF M16.12 - Unilateral primary osteoarthritis, left hip Refilled [cane] As directed 1 ea 0RF M16.12 - Unilateral primary osteoarthritis, left hip [shower chair] As directed 1 ea 0RF M16.12 - Unilateral primary osteoarthritis, left hip [toilet seat elevator] As directed 1 ea 0RF M16.12 - Unilateral primary o steoarthritis, left hip Coding Level of Care Code Est Pt Level 3 (71217) Complex EM visit Add On G2211 Diagnoses Osteoarthritis of left hip M16.12
--- OUTSIDE RECORDS SUMMARY | 2025-01-04 14:19 | XMS_ITS | Encounter Summary ---
Author Organization [facility] Address [address] [place] [address] Care Team Providers Care Chemistry Intern Name Role Phone Valarie Akbar MD Primary Care Provider [phone] Encounter Details Date Type Department Care Team (Late st Contact Info) Description 01/18/2024 Lab Requisition [facility] - Main Lab [address] [place] [address] Gary Kam MD [address] [place] [address] [address] [place], [phone] Bipolar disorder, unspecified (CMS/HCC V24, CMS/HCC [...] AM EST Office Visit Orthopedic Surgery - [place] [address] [phone] Mateo Weathers DPM [address] [phone] documented as of this encounter Procedures Procedure [...] LAB CHEMISTRY METHOD 01/18/2024 8:31 PM EST [facility] Mean Bld Glu Estim. 100 mg/dL LAB CHEMISTRY METHOD 01/18/2024 8:31 PM [facility] Blood Venous blood specimen / Unknown 01/18/2024 6:29 AM EST 01/18/2024 1:32 PM EST us Gary Kam MD LAB BLOOD ORDERABLES Final Resul t [facility] [address] [place] [address], * CBC auto differential (01/18/2024 6:29 AM EST) Pathologist [facility] WBC 5.4 4.8 - 10.8 K/mcL LAB HEMETOLOGY METHOD 01/18/2024 1:33 PM EST [facility] RBC 4.80 3.80 - 4.80 M/mcL LAB HEMETOLOGY METHOD 01/18/2024 1:33 PM EST [facility] Hemoglobin 14.9 11.5 - 16.0 g/dL LAB HEMETOLOGY METHOD 01/18/2024 1:33 PM EST [facility] Hematocrit 45.7 35.0 - 47.0 % [...] LAB HEMETOLOGY METHOD 01/18/2024 1:33 PM EST [facility] Immature Granulocytes Relative 0.4 % LAB HEMETOLOGY METHOD 01/18/2024 1:33 PM EST [facility] Neutrophils Absolute 3.04 1.50 - 7.00 K/mcL LAB HEMETOLOGY METHOD 01/18/2024 1:33 PM EST [facility] Lymphocytes Absolute 1.70 1.00 - 5.00 K/mcL LAB HEMETOLOGY METHOD 01/18/2024 1:33 PM [facility] Monocytes Absolute 0.26 0.20 - 1.00 K/mcL LAB HEMETOLOGY METHOD 01/18/2024 1:33 PM EST [facility] Eosinophils Absolute 0.32 0.00 - 0.50 K/[facility] LAB HEMETOLOGY METHOD 01/18/2024 1:33 PM [facility] Basophils Absolute 0.04 0.00 - 0.20 K/mcL LAB HEMETOLOGY METHOD 01/18/2024 1:33 PM EST [facility] LAB Immature Granulocytes Absolute 0.02 0.00 - 0.03 K/mcL LAB HEMETOLOGY METHOD 01/18/2024 1:33 PM [facility] Blood Venous blood specimen / Unknown Venipuncture / Unknown 01/18/2024 6:29 AM EST 01/18/2024 12:24 PM EST us Gary Kam MD LAB BLOOD ORDERABLES Final Resul t [facility] [address] [place] [address], * Travel phlebotomy fee (01/18/2024 6:29 AM EST) [facility] TRAVEL PHLEBOTOMY FEE Completed 01/18/2024 1:02 PM EST [facility] Blood Venous blood specimen / Unknown Venipuncture / Unknown 01/18/2024 6:29 AM EST 01/18/2024 12:24 PM EST us Gary Kam MD LAB BLOOD ORDERABLES Final Resul t [facility] [address] [place] [address], [place] [phone] * (ABNORMAL) Comprehensive metabolic panel (01/18/2024 6:29 [...] MD LAB BLOOD ORDERABLES Final Resul t [facility] [address] [place] [address], documented in this encounter Visit Diagnoses Diagnosis Bipolar disorder, unspecified (CMS/HCC V24, CMS/HCC V28) Bipolar disorder, unspecified documented in this encounter Care Teams Chemistry Intern Relationship Specialty Start Date End Date Valarie Akbar MD [address] [place] [address] , [address] [facility] D/B/A: [facility] [place], [place] PCP - General Internal Medicine 02/18/24 documented as of this encounter
--- OUTSIDE RECORDS SUMMARY | 2025-01-04 14:19 | XMS_ITS | Clinical Summary ---
Author Organization [address] Address [address] [place] [phone] Phone Care Team Providers Care Vaccine Manager Name Role Phone Valarie Akbar MD Primary Care Provider [phone] Allergies Active Allergy Reactions Criticality Noted Date Comments Fentanyl 04/18/2024 Penicillins 04/18/2024 Medications No known medications Encounters Date Type Department Care Team Description 10/11/2024 10:30 AM EDT Office Visit Orthopedic [facility] [address] [phone] Mateo Weathers, DPM Sesamoiditis of left foot (Primary Dx); Dermatofibroma of left lower leg; Acquired hammer toe of right foot; Hammer toe of left foot; Acquired hallux valgus of right foot; Dermatophytosis of nail; Corns and callosities; Ingrowing nail; Pain in toe of right foot; Pain in toe of left foot; Difficulty walking from Last 3 Months Social History Tobacco [...] Upcoming Encounters Date Type Department Care Team ([facility] st Contact Info) Description 01/29/2025 10:30 AM EST Office Visit Orthopedic [facility] [address] [phone] Mateo Weathers, DPM [address] [phone] Health Maintenance Due Date Last Done Comments Breast Cancer Screening 1970 Colorectal Cancer Screening: Colonoscopy 1970 Hepatitis B Vaccines (1 of 3 - 19+ 3-dose series) 01/13/1987 Zoster Vaccines (1 of 2) 01/13/1987 Cervical Cancer Screening: Pap Smear 01/13/1989 Pneumococcal Vaccine: 50+ Years (1 of 1 - PCV) 01/13/2018 HIV Screening 01/18/2024 Hepatitis C Screening 01/18/2024 Social Influencers of Health Screening 01/18/2024 Depression Screening 03/15/2024 COVID-19 Vaccine ( season) 2024 12/29/2022, 03/25/2022, 03/04/2021, Additional history exists Influenza Vaccine (#1) 2024 , 04/02/2020, 02/21/2019, Additional history exists DTaP,Tdap,and Td Vaccines (3 - Td or Tdap) 07/29/2028 07/29/2018, 07/06/2017 RSV Immunization Adult Patients (1 - 1-dose 75+ series) 01/13/2043 HIB [...] patient's age to complete this topic Insurance [facility] Member Subscriber Plan / Payer (Ef fective 2016-Present) Name:MELINDA KOENIG Relation to Subscriber:Self Name:Melinda Koenig I Payer ID:[id number] Group ID:[id number] Type:Not on file Address: [address] [place] [id number] MEDICAID - [place] Care Teams Vaccine Manager Relationship Specialty Start Date End Date Valarie Akbar MD [address] [place] [address] , [address] [facility] Physician Associ D/B/A: [facility] [place], [place] PCP - General Internal Medicine 02/18/24
--- OUTSIDE RECORDS SUMMARY | 2025-01-04 14:19 | XMS_ITS | Clinical Summary ---
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
== END 2025-01-04 12:36 | disposition home or self-care (01) ==
LOC: HO.HOS 11:16
PROVIDERS: PCP Internal Medicine; Visit Provider Physician Assistant
DX: M16.12 Unilateral primary osteoarthritis, left hip (principal)
CPT/HCPCS: 99213; G2211

== ENCOUNTER 2025-01-04 11:16 | Outpatient (REF) | payer OTHER, SELFPAY ==
[2025-01-04 12:14] LABS: MANUAL DIFF FLAG NO
[2025-01-04 12:24] LABS: Hematocrit 40.0 % (37.0-47.0); Hemoglobin 12.9 g/dl (12.0-16.0); Imm Gran Abs Auto 0.03 X10*3/uL (0.00-0.03); Imm Gran Pct Auto 0.5 % (0.0-0.4); Lymphocytes Absolute Auto 2.2 X10*3/uL (1.2-4.9); Mean Corpuscular HGB Conc 32.3 g/dl (31.0-35.0); Mean Corpuscular Hemoglobin 30.2 pg (27.0-33.0); Mean Corpuscular Volume 93.7 fL (80.0-98.0); NRBC Abs Auto 0.000 X10*3/uL (0.0-0.012); NRBC Pct Auto 0.0 /100WBC (0.0-0.2); Platelet Count 232 X10*3/uL (160-400); Red Blood Count 4.27 X10*6/uL (4.20-5.50); White Blood Count 6.3 X10*3/uL (4.8-10.8)
[2025-01-04 12:51] LABS: Anion Gap 10 (12-20); Blood Urea Nitrogen 8 mg/dL (9-16); Calcium 9.0 mg/dL (8.4-10.2); Carbon Dioxide 27 mmol/L (22-29); Chloride 108 mmol/L (96-108); Estimated Glomerular Filt Rate > 60; Potassium 3.8 mmol/L (3.3-5.1); Sodium 141 mmol/L (135-145)
--- OUTSIDE RECORDS SUMMARY | 2025-01-04 15:10 | XMS_ITS | Data Portability ---
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 Role Phone KARL HARPER - 2ND [...] Recorded Time Pain in left lower limb [id number] Active 2023 OLESYA MARTINEZ NP [address], [address], [place], [address], [facility] 4 12:26:33 Asthenia 00897574 Active 2023 OLESYA MARTINEZ NP [address], [address], [place], [address], [facility] 4 12:26:40 Recurrent falls 033980507 Active 2023 OLESYA MARTINEZ NP [address], [address], [place], [address], [facility] 4 12:26:58 Major depressive disorder 074670712 Active 2023 OLESYA MARTINEZ NP [address], [address], [place], [address], [facility] 4 12:27:07 Anxiety 01864747 Active 2023 OLESYA MARTINEZ NP [address], [address], [place], [address], [facility] 4 12:27:14 Bipolar disorder 48698832 Active 2023 OLESYA MARTINEZ NP [address], [address], [place], [address], [facility] [employer] [facility] 4 12:27:21 Fibromyalgia 005986782 Active 2023 OLESYA MARTINEZ NP [address], [address], [place], [address], [facility] 4 12:27:33 Post-traumatic stress disorder 29676083 Active 2023 OLESYA MARTINEZ NP [address], [address], [place], [address], [facility] 4 12:27:39 Urinary incontinence 647855299 Active 2023 OLESYA MARTINEZ NP [address], [address], [place], [address], [facility] 4 12:29:15 Osteoarthritis 296974813 Active 2023 OLESYA MARTINEZ NP [address], [address], [place], [address], [facility] [employer] [facility] 4 12:29:20 Carpal tunnel syndrome 43852351 Active 2023 OLESYA MARTINEZ NP [address], [address], [place], [address], [facility] 4 12:29:48 Vitamin D deficiency 62935168 Active 2023 OLESYA MARTINEZ NP [address], [address], [place], [address], [facility] 4 12:29:58 Constipation 24570140 Active 2023 OLESYA MARTINEZ NP [address], [address], [place], [address], [facility] 4 12:30:10 Problem Notes None recorded. Medical Equipment None Reported. Allergies Allergen ID Allergen Name Allergen Category Reaction Reaction Severity Criticality Documentation Date Start Date Code Code System Note Provider Name and Address Organization Details Recorded Time 49417 fentanyl medicatio n Not available Not available Not available 01/18/2024 4337 RxNorm vomit ing OLESYA MARTINEZ NP [address] [facility], [address], [place], [address], [facility] 4 12:11:38 18609 Product containin g penicilli n (product) medicatio n Not available Not available Not available 01/18/2024 86767 8001 SNOMED anaph ylaxi s OLESYA MARTINEZ NP [address] [facility], [address], [place], [address], [facility] 4 12:12:12 97057 Zoloft medicatio n Not available Not available Not available 01/18/2024 52117 RxNorm anxie ty OLESYA MARTINEZ NP [address] [facility], [address], [place], [address], [facility] 4 12:12:28 13680 Ambien medicatio n Not available Not available Not available 01/18/2024 25787 5 RxNorm suici jazmyn attem pt OLESYA MARTINEZ NP [address] [facility], [address], [place], [address], [employer] [facility] 4 12:12:44 Vitals Date Recorded Heart rate Respiratory rate Body temperature Oxygen saturation Oxygen saturation in Arterial blood by Pulse oximetry Systolic And Diastolic Provider Name and Address Organization Details Last Updated DateTime 4 82 /min 18 /min 98 [degF] 99 % 99 % 132/75 mm[Hg] OLESYA MARTIENZ NP [address] [facility], [address], [place], [address], [facility] 4 12:08:28 Social History Question Answer Notes LastModified by Organizat ion Details LastModified Time Tobacco Smoking Status Never Smoker OLESYA MARTINEZ NP [address] [facility], [address], [place], [address], [facility] 01/18/2024 12:34:28 Do You Have An Advance Directive? Yes [email or web address] Information not available 01/18/2024 What Is Your Code Status? Full Code [email or web address] Information not available 01/18/2024 Which Illicit Or Recreational Drugs Have You Used? Cannabis For Pain Mgmt. [email or web address] Information not available 01/18/2024 Where Do You Live? [address]ment [address] Lives With Dog. Sister Nearby, Supportive . 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 Yes Has HCP [email or web address] Information not available 01/18/2024 What Was The Date Of Your Most Recent Tobacco Screening? 01/18/2024 [email or web address] Information not available 01/18/2024 Do You Have An Out Of Hospital DNR? Yes Information not available 01/18/2024 Have You Used IV Drugs? No [email or web address] Information not available 01/18/2024 Sex: Unknown Functional Status Question Answer Note LastModified by Organizat ion Details LastModified Time Do you use any illicit or recreational drugs? Yes [email or web address] Information not available 01/18/2024 Do you or have you ever used any other forms of tobacco or nicotine? No [email or web address] Information not available 01/18/2024 What is your level of alcohol consumption? None [email or web address] Information not available 01/18/2024 Mental Status None recorded. Family History Relationship Description Onset Age of this Age Resolved Age Notes LastModified by Organization Details LastModified Time Father Depressive disorder [email or web address] Not available 2023 12:32:30 Father Mental disorder [email or web address] Not available 2023 12:32:51 Mother Diabetes mellitus [email or web address] Not available 2023 12:33:28 Mother Malignant neoplasm of breast [email or web address] Not available 2023 12:33:40 Medical History No medical history recorded. Gynecological HistoryNo gynecological history recorded. Obstetrics History GPAL:G 0 P 0 0 0 0 Immunizations Vaccine Type Date Status Note Provider Farhad e and Address Organization Details Recorded Time Tdap 07/29/2018 completed Ananya Carvajal [facility] 01/20/2024 16:39:53 Td(adult) unspecified formulation 07/06/2017 completed Ananya Carvajal [facility] 01/20/2024 16:40:06 SARS-COV-2 (COVID-19) vaccine, UNSPECIFIED 07/18/2020 completed Ananya Carvajal [facility] 01/20/2024 16:40:50 SARS-COV-2 (COVID-19) vaccine, UNSPECIFIED 08/15/2020 completed Ananya [facility] 01/20/2024 16:40:57 SARS-COV-2 (COVID-19) vaccine, UNSPECIFIED 03/04/2021 completed Ananya [facility] 01/20/2024 16:41:06 SARS-COV-2 (COVID-19) vaccine, UNSPECIFIED 03/25/2022 completed Ananya [facility] 01/20/2024 16:41:16 SARS-COV-2 (COVID-19) vaccine, UNSPECIFIED 12/29/2022 completed Ananya [facility] 01/20/2024 16:41:24 Past Encounters Encounter ID Performer Location Encounter Start Date Encounter Closed Date Diagnosis/Indication Diagnosis SNOMED-CT Code Diagnosis ICD10 Code Diagnosis IMO Codes Diagnosis Note [id number] OLESYA MARTINEZ NP [address] [address] 01/18/2024 12:07:38 01/19/2024 10:19:11 Pain in left lower limb 258192213 M79.605 with hx. of recurrent fallsMSIR 15 [...] and txRefer to PMR as well. Asthenia 00924613 R53.1 PT OT eval and tx.Gait instabilit y due left bunion/megan lous which in turn contribute s to L hip/LE painManage pain as aboveRefer to PMRGoal is to return home. Bipolar disorder 9030442 4 F31.9 anxiety, depression , complicate d [...] med mgmt.Monit or mood and behaviors Fibromyalgia 213186364 M 79.7 Continue home meds:cyclo benzaprine 5 mg tid prnAPAP 1000 mg q 6 hr prnIbuprof en 800 mg tid, and 400 mg tid prnduloxet ine 60 mg q am, 30 mg q aft. and hsPT OT eval and tx.Refer to in house PMR Constipation 37063218 K5 9.00 Not on meds at this time, monitor need leonarda. with use of MSO4 Vitamin D deficiency 347 76566 E55.9 Vit D 03982 units q week Health Concerns Section Related Observation LastModified by Organization Detai ls LastModified Time None Recorded Concern Status LastModified by Organization Details LastModified Time None Recorded Advance Directives Directive Y: Payers Insurance Date Sequence Insurance Name Policy Number Policy Grier Covered Member ID Grier Member ID Guarantor Name 01/19/2024 1 [facility] - DOS ON OR AFTER 2022 - MEDICARE ADVANTAGE [place] (MEDICARE REPLACEMENT/ADV ANTAGE - PPO) Cathy Funk [id number] Cathy Funk Notes Date Note Type Note Provider Name and Address Organization Details Recorded Time 01/18/2024 text/html Cathy is seen today for initial intake. She is a 54 yo lady admitted to [facility] 01/17/24 from [facility] for continued care and rehab due to weakness and pain. She presented to [facility] with left sided pain x 1 month [...] the side of the bed for exam. patient placement coordinator present. She says she had a horrible [...] D def, carpal tunnel, constipationFull code OLESYA MARTINEZ, PRECIOUS [address] [facility], [address], [place], [address], [facility] 01/18/2024 13:17:48 OBGyn Episode No OBEpisode recorded.
== END 2025-01-04 11:17 | disposition home or self-care (01) ==
LOC: HO.LAB 11:16
PROVIDERS: PCP Internal Medicine; Visit Provider Physician Assistant
DX: Z01.818 Encounter for other preprocedural examination (principal); M16.12 Unilateral primary osteoarthritis, left hip; E11.9 Type 2 diabetes mellitus without complications
CPT/HCPCS: 36415; 80048; 83036; 85025; 99212

== ENCOUNTER 2025-01-09 06:56 | Day surgery (SDC) | payer OTHER, SELFPAY ==
--- OUTSIDE RECORDS SUMMARY | 2024-11-16 14:20 | XMS_ITS | Clinical Summary ---
Author Organization [address] Address [address] [place] [phone] Phone Care Team Providers Care Family Consultant Name Role Phone Valarie Akbar MD Primary Care Provider [phone] Allergies Active Allergy Reactions Criticality Noted Date Comments Fentanyl 04/18/2024 Penicillins 04/18/2024 Medications diclofenac (Voltaren Arthritis Pain) 1 % topical gel Apply 4 g topically 2 (two) times a day. 240 g 1 10/28/19 25 Encounters Date Type Department Care Team Description 10/11/2024 10:30 AM EDT Office Visit Orthopedic Surgery [address] [phone] Mateo Weathers DPM Sesamoiditis of left foot (Primary Dx); Dermatofibroma of left lower leg; Acquired hammer toe of right foot; Hammer toe of left foot; Acquired hallux valgus of right foot; Dermatophytosis of nail; Corns and callosities; Ingrowing nail; Pain in toe of right foot; Pain in toe of left foot; Difficulty walking 08/28/2024 2:00 PM EDT Office Visit Orthopedic [address] [phone] Mateo Weathers DPM Sesamoiditis of left foot [...] AM EST Office Visit Orthopedic Surgery - [place] [address] [phone] Mateo Weathers, DPM [address] [phone] Health Maintenance Due Date Last [...] patient's age to complete this topic Insurance [facility] Member Subscriber Plan / Payer (Ef fective 2016-Present) Name:BRIGHTFabio GLOVERMELINDA BILLS Relation to Subscriber:Self Name:Juan Koenigiadon Chinchilla Payer ID:[id number] Group ID:[id number] Type:Not on file Address: [facility] [address] [phone] MEDICA[place] - [place] Care Teams Family Consultant Relationship Specialty Start Date End Date Valarie Akbar MD [address] [place] [address] , [address] Physician Associ D/B/A: [facility] [place], [place] PCP - General Internal Medicine 02/18/24
--- OUTSIDE RECORDS SUMMARY | 2024-11-16 14:20 | XMS_ITS | Encounter Summary ---
Author Organization [facility] Address [address] [place] [address] Care Team Providers Care Range Rider Name Role Phone Valarie Akbar MD Primary Care Provider [phone] Encounter Details Date Type Department Care Team (Late st Contact Info) Description 01/18/2024 Lab Requisition [facility] - Main Lab [address] [place] [address] Gary Kam MD [address] [place] [address] [address], [phone] Bipolar disorder, unspecified (CMS/HCC V24, CMS/HCC [...] AM EST Office Visit Orthopedic Surgery - [place] [address] [phone] Mateo Weathers DPM [address] [phone] documented as of this encounter Procedures Procedure [...] Hemoglobin A1c (01/18/2024 6:29 AM EST) Pathologist [facility] Hemoglobin A1C 5.1 <6.5 % LAB CHEMISTRY METHOD 01/18/2024 8:31 PM EST [facility] Mean Bld Glu Estim. 100 mg/dL LAB CHEMISTRY METHOD 01/18/2024 8:31 PM [facility] Blood Venous blood specimen / Unknown 01/18/2024 6:29 AM EST 01/18/2024 1:32 PM EST us Gary Kam MD LAB BLOOD ORDERABLES Final Resul t [facility] [address] [place] [address], * CBC auto differential (01/18/2024 6:29 AM EST) Pathologist [facility] WBC 5.4 4.8 - 10.8 K/mcL LAB HEMETOLOGY METHOD 01/18/2024 1:33 PM EST [facility] RBC 4.80 3.80 - 4.80 M/mcL LAB HEMETOLOGY METHOD 01/18/2024 1:33 PM EST [facility] Hemoglobin 14.9 11.5 - 16.0 g/dL LAB HEMETOLOGY METHOD 01/18/2024 1:33 PM EST [facility] Hematocrit 45.7 35.0 - 47.0 % LAB HEMETOLOGY METHOD 01/18/2024 1:33 PM [facility] MCV 95.0 79.0 - 98.0 FL LAB HEMETOLOGY METHOD 01/18/2024 1:33 PM [facility] MCH 31.0 27.0 - 32.0 pcg LAB HEMETOLOGY METHOD 01/18/2024 1:33 PM [facility] MCHC 32.6 32.0 - 37.0 g/dL LAB HEMETOLOGY METHOD 01/18/2024 1:33 PM [facility] RDW 13.2 11.0 - 15.0 % LAB HEMETOLOGY METHOD 01/18/2024 1:33 PM [facility] Platelets 307 130 - 400 K/mcL LAB HEMETOLOGY METHOD 01/18/2024 1:33 PM [facility] MPV 9.2 7.0 - 11.0 FL LAB HEMETOLOGY METHOD 01/18/2024 1:33 PM [facility] NRBC 0.0 <1.0 % LAB HEMETOLOGY METHOD 01/18/2024 1:33 PM [facility] NRBC Absolute 0.00 <0.10 K/mcL LAB HEMETOLOGY METHOD 01/18/2024 1:33 PM [facility] Neutrophils Relative 56.6 % LAB HEMETOLOGY METHOD 01/18/2024 1:33 PM [facility] Lymphocytes Relative 31.6 % LAB HEMETOLOGY METHOD 01/18/2024 1:33 PM [facility] Monocytes Relative 4.8 % LAB HEMETOLOGY METHOD 01/18/2024 1:33 PM [facility] Eosinophils Relative 5.9 % LAB HEMETOLOGY METHOD 01/18/2024 1:33 PM [facility] Basophils Relative 0.7 % LAB HEMETOLOGY METHOD 01/18/2024 1:33 PM EST [facility] Immature Granulocytes Relative 0.4 % LAB HEMETOLOGY METHOD 01/18/2024 1:33 PM EST [facility] Neutrophils Absolute 3.04 1.50 - 7.00 K/mcL LAB HEMETOLOGY METHOD 01/18/2024 1:33 PM EST [facility] Lymphocytes Absolute 1.70 1.00 - 5.00 K/mcL LAB HEMETOLOGY METHOD 01/18/2024 1:33 PM [facility] Monocytes Absolute 0.26 0.20 - 1.00 K/mcL LAB HEMETOLOGY METHOD 01/18/2024 1:33 PM EST [facility] Eosinophils Absolute 0.32 0.00 - 0.50 K/[facility] LAB HEMETOLOGY METHOD 01/18/2024 1:33 PM [facility] Basophils Absolute 0.04 0.00 - 0.20 K/mcL LAB HEMETOLOGY METHOD 01/18/2024 1:33 PM EST [facility] Immature Granulocytes Absolute 0.02 0.00 - 0.03 K/mcL LAB HEMETOLOGY METHOD 01/18/2024 1:33 PM [facility] Blood Venous blood specimen / Unknown Venipuncture / Unknown 01/18/2024 6:29 AM EST 01/18/2024 12:24 PM EST us Gary Kam MD LAB BLOOD ORDERABLES Final Resul t [facility] [address] [place] [address], * Travel phlebotomy fee (01/18/2024 6:29 AM EST) [facility] TRAVEL PHLEBOTOMY FEE Completed 01/18/2024 1:02 PM EST [facility] Blood Venous blood specimen / Unknown Venipuncture / Unknown 01/18/2024 6:29 AM EST 01/18/2024 12:24 PM EST us Gary Kam MD LAB BLOOD ORDERABLES Final Resul t [facility] [address] [place] [address], [place] [phone] * (ABNORMAL) Comprehensive metabolic panel (01/18/2024 6:29 AM EST) Sodium 140 133 - 145 mmol/L LAB CHEMISTRY METHOD 01/18/2024 4:18 PM [facility] Potassium 5.3 3.5 - 5.5 mmol/L LAB CHEMISTRY METHOD 01/18/2024 4:18 PM [facility] Chloride 111(H) 96 - 110 mmol/L LAB CHEMISTRY METHOD 01/18/2024 4:18 PM [facility] CO2 24 21 - 32 mmol/L LAB CHEMISTRY METHOD 01/18/2024 4:18 PM [facility] Anion Gap 5 3 - 11 LAB CHEMISTRY METHOD 01/18/2024 4:18 PM [facility] Glucose 69(L) 70 - 100 mg/dL LAB CHEMISTRY METHOD 01/18/2024 4:18 PM [facility] BUN 11 5 - 25 mg/dL LAB CHEMISTRY METHOD 01/18/2024 4:18 PM [facility] Creatinine 0.82 0.50 - 1.10 mg/dL LAB CHEMISTRY METHOD 01/18/2024 4:18 PM [facility] eGFR 84 >=60 mL/min/1. 73m2 LAB CHEMISTRY METHOD 01/18/2024 4:18 PM [facility] Comment:Calculation based on the Chronic Kidney Disease Epidemiology Collaboration (CKD-EPI) equation refit without adjustment for race. BUN/Creatinine Ratio 13.4 LAB CHEMISTRY METHOD 01/18/2024 4:18 PM [facility] Calcium 10.6(H) 8.5 - 10.5 mg/dL LAB CHEMISTRY METHOD 01/18/2024 4:18 PM [facility] AST (SGOT) 36 10 - 42 unit/L LAB CHEMISTRY METHOD 01/18/2024 4:18 PM [facility] ALT (SGPT) 34 10 - 60 unit/L LAB CHEMISTRY METHOD 01/18/2024 4:18 PM [facility] Alkaline Phosphatase 167(H) 42 - 121 unit/L LAB CHEMISTRY METHOD 01/18/2024 4:18 PM [facility] Total Protein 9.0(H) 6.0 - 8.0 g/dL LAB CHEMISTRY METHOD 01/18/2024 4:18 PM [facility] Albumin 4.7 3.2 - 5.0 g/dL LAB CHEMISTRY METHOD 01/18/2024 4:18 PM [facility] Total Bilirubin 0.6 0.0 - 1.4 mg/dL LAB CHEMISTRY METHOD 01/18/2024 4:18 PM [facility] Blood Venous blood specimen / Unknown Venipuncture / Unknown 01/18/2024 6:29 AM EST 01/18/2024 12:24 PM EST us Gary Kam MD LAB BLOOD ORDERABLES Final Resul t [facility] [address] [place] [address], documented in this encounter Visit Diagnoses Diagnosis Bipolar disorder, unspecified (CMS/HCC V24, CMS/HCC V28) Bipolar disorder, unspecified documented in this encounter Care Teams Range Rider Relationship Specialty Start Date End Date Valarie Akbar MD [address] [place] [address] , [address] [facility] [place], [place] PCP - General Internal Medicine 02/18/24 documented as of this encounter
--- OUTSIDE RECORDS SUMMARY | 2024-11-16 14:21 | XMS_ITS | Clinical Summary ---
Author Organization [facility] Address [address] [place] [address] Care Team Providers Care Rural Service Engineer Name Role Phone Unavailable Primary Care Provider [...] patient's age to complete this topic Insurance [facility] ADV
[2024-12-20 10:19] VITALS: BP 93/59; PULSE 79; RESP 17; O2SAT 96; BMI 33.8
--- NOTE | 2024-12-20 10:38 | HO.ANESPROP2 ---
Documented by User: Maria Ines Lees NP 12/20/24 10:52 HPI - Anesthesia Eval Consult details Narrative: 54 yr old female for left total hip replacement scheduled for 01/09/25, seen in PAT 12/20/24 No CP/SOB with little to no activity, limited by pain. No recent illness Medically optimized by PCP for surgery PMFSH Active Problems Active Problems: All Active Problems (Updated 12/20/24 @ 10:01 by Deb Guzman RN) Pre-op evaluation (Acute) Hospital discharge follow-up (Acute) Abnormal EKG (Acute) Arthralgia of knee, left (Acute) Arthralgia of knee, left (Acute) DAVID (generalized anxiety disorder) (Acute) Mild major depression (Acute) Osteoarthritis of left hip (Acute) Foot callus (Acute) Change in bowel habit (Acute) Arthritis of first metatarsophalangeal (MTP) joint of left foot (Acute) H/O prolonged Q-T interval on ECG (Acute) Vertigo (Acute) Hypoglycemia (Acute) Acute diverticulitis (Acute) Pancreatic cyst (Acute) Abdominal pain (Acute) Extrapyramidal and movement disorder, unspecified (Acute) PTSD (post-traumatic stress disorder) (Acute) Bipolar affective, depress, mod (Acute) Cannabis abuse (Acute) DAVID (generalized anxiety disorder) (Acute) Lumbar degenerative disc disease (Acute) Chronic cough (Acute) Foot pain (Acute) Osteoarthritis of left hip (Acute) Tendinitis of left rotator cuff (Acute) Primary osteoarthritis of right knee (Acute) Synovial cyst of popliteal space [Alvarado], right knee (Acute) Impingement of left shoulder (Acute) Goiter (Acute) Physical exam (Acute) S/P rotator cuff repair (Acute) Right rotator cuff tear (Acute) Iliotibial band syndrome, left leg (Acute) Acquired deformity of right toe (Acute) Cellulitis (Acute) Tenosynovitis of finger (Acute) Fibromyalgia affecting multiple sites (Acute) Polyarthralgia (Acute) Carpal tunnel syndrome (Acute) Hypovitaminosis D (Acute) Constipation by delayed colonic transit (Acute) Past Medical History Medical History S/P ECT (electroconvulsive therapy) History of headache Numbness Severe major depression without psychotic features MDD (major depressive disorder), recurrent episode, moderate Frequent falls Shoulder pain, bilateral Lumbar pain Screening for cervical cancer Osteoarthritis of right knee Urinary incontinence Skin lesion Right sided abdominal pain Cervical radiculopathy Osteoarthritis of acromioclavicular joint Rotator cuff tendonitis Chronic right shoulder pain Cervical strain Polyarthralgia Carpal tunnel syndrome Bipolar disorder Depression Anxiety Hypovitaminosis D Constipation by delayed colonic transit Family History Family History Father Depression Prostate cancer Chronic mental illness Mother Diabetes Cancer Breast cancer Maternal Aunt Breast cancer Family/Other Chronic mental illness Other Mental health disorder Family history of problems with anesthesia: No Surgical History Surgical History History of lumbar surgery Hx of colonoscopy History of surgery History of right hip replacement History of hemorrhoidectomy History of bunionectomy History of cholecystectomy History of appendectomy History of Problems with Anesthesia: No Social History Social History Household Members: Other Household Members Other:: My dog Housing: House Are you a primary critical care physician assistant to a significant other at home: No Do you presently have visiting nurse or other home services: Yes Alcohol intake: never Patient Tobacco Use Status: Never used Tobacco e-Cigarette/Vaping Use: Never Used Second Hand Smoke Exposure: No Use of substances other than those prescribed or required for medical reasons: Yes Substance Use Type: Marijuana Substance Use Frequency: Occasionally Have you been hit, kicked, punched, or otherwise hurt by someone within the past year? 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 Cognitive needs: No Hearing needs: No Vision needs: Yes (glasses) Meds Allergies Allergy/AdvReac Type Severity Reaction Status Date / Time fentanyl (FENTANYL) Allergy Intermediate VOMITING Verified 01/04/25 11:28 Penicillins (PENICILLINS) Allergy Intermediate ANAPHYLAXIS Verified 01/04/25 11:28 sertraline (From ZOLOFT) Allergy Intermediate ANXIETY Verified 01/04/25 11:28 zolpidem (From AMBIEN) Allergy Intermediate suicidal Verified 01/04/25 11:28 attempt with zolpidem Home Medications ?Medication ?Instructions ?Recorded ?Confirmed ?Last Taken ?Type quetiapine 50 mg tablet 50 mg PO BID severe anxiety or 12/20/24 01/04/25 01/09/25 History agitation Exam Height,Weight and Vital Signs: Height 5 ft 5 in Weight 92.079 kg Last Vital Signs Pulse 79 12/20/24 10:19 Resp 17 12/20/24 10:19 BP 93/59 L 12/20/24 10:19 Pulse Ox 96 12/20/24 10:19 O2 Del Method Room Air 12/20/24 10:19 Pertinent Lab Results Pertinent Lab Results: Laboratory Tests 11/21/24 11/21/24 18:33 18:34 WBC 6.9 RBC 4.07 L Hgb 12.7 Hct 37.1 Plt Count 218 Sodium 142 Potassium 3.8 BUN 11 Creatinine 0.75 Narrative Narrative: EKG 11/2024 Vent. Rate : 69 BPM Atrial Rate : 69 BPM P-R Int : 170 ms QRS Dur : 86 ms QT Int : 398 ms P-R-T Axes : 27 14 18 degrees QTcB Int : 426 ms Normal sinus rhythm Nonspecific T wave abnormality Abnormal ECG When compared with ECG of 10-Oct-2024 10:18, No significant change was found Airway Mallampati Class: I TM Dist: >3cm Neck ROM: Full Loose/Missing/Broken Teeth: No Heart: RRR Lungs: CTAB Assessment and Plan Final Anesthetic Review Family History of Problems with Anesthesia: No History of Problems with Anesthesia: No Documented by User: Danielle Brantley MD 01/09/25 08:18 PMFSH Past Medical History Medical History S/P ECT (electroconvulsive therapy) History of headache Numbness Severe major depression without psychotic features MDD (major depressive disorder), recurrent episode, moderate Frequent falls Shoulder pain, bilateral Lumbar pain Screening for cervical cancer Osteoarthritis of right knee Urinary incontinence Skin lesion Right sided abdominal pain Cervical radiculopathy Osteoarthritis of acromioclavicular joint Rotator cuff tendonitis Chronic right shoulder pain Cervical strain Polyarthralgia Carpal tunnel syndrome Bipolar disorder Depression Anxiety Hypovitaminosis D Constipation by delayed colonic transit Family History Family History Father Depression Prostate cancer Chronic mental illness Mother Diabetes Cancer Breast cancer Maternal Aunt Breast cancer Family/Other Chronic mental illness Other Mental health disorder Surgical History Surgical History History of lumbar surgery Hx of colonoscopy History of surgery History of right hip replacement History of hemorrhoidectomy History of bunionectomy History of cholecystectomy History of appendectomy Social History Social History Household Members: Other Household Members Other:: My dog Housing: House Are you a primary critical care physician assistant to a significant other at home: No Do you presently have visiting nurse or other home services: Yes Alcohol intake: never Patient Tobacco Use Status: Never used Tobacco e-Cigarette/Vaping Use: Never Used Second Hand Smoke Exposure: No Use of substances other than those prescribed or required for medical reasons: Yes Substance Use Type: Marijuana Substance Use Frequency: Occasionally Have you been hit, kicked, punched, or otherwise hurt by someone within the past year? 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 Cognitive needs: No Hearing needs: No Vision needs: Yes (glasses) Meds Allergies Allergy/AdvReac Type Severity Reaction Status Date / Time fentanyl (FENTANYL) Allergy Intermediate VOMITING Verified 01/04/25 11:28 Penicillins (PENICILLINS) Allergy Intermediate ANAPHYLAXIS Verified 01/04/25 11:28 sertraline (From ZOLOFT) Allergy Intermediate ANXIETY Verified 01/04/25 11:28 zolpidem (From AMBIEN) Allergy Intermediate suicidal Verified 01/04/25 11:28 attempt with zolpidem Home Medications ?Medication ?Instructions ?Recorded ?Confirmed ?Last Taken ?Type quetiapine 50 mg tablet 50 mg PO BID severe anxiety or 12/20/24 01/04/25 01/09/25 History agitation Assessment and Plan Assessment Anesthesia Assessment: Anesthesia Plan Discussed and Chart Reviewed Final Anesthetic Review NPO: Yes ASA Class: III Final Preanesthetic Review: No Changes in Pt Med Stat, Meds/Allgs Chart Reviewed, Consent Obtained/Reviewed and Anes Risks/Benef Reviewed Patient Risk: Intermediate Procedure Risk: Intermediate Anesthetic Plan Anesthetic Plan: GA and Agree w/ Assess. and Plan Disposition: Standard PACU
[2024-12-20 12:18] LABS: MRSA Nasal PCR NEGATIVE (Negative); SA Nasal PCR POSITIVE (Negative)
[2025-01-09] VITALS (12 sets, daily range): BP systolic 96–120; BP diastolic 56–76; PULSE 73–81; RESP 12–24; TEMP 36–36.6; O2SAT 94–99; BMI 33.8; BMI 34.2
--- NOTE | ~2025-01-09 | XR_ITS ---
EXAMINATION: XR PELVIS CLINICAL INFORMATION: lt yani COMPARISON: November 21, 2024. TECHNIQUE: AP view of the pelvis. FINDINGS: Excluded right iliac bone and right hip. Metallic prosthesis with an acetabular and femoral component in the left hip. Mild loosening in the acetabular component towards the screws. No acute cortical disruption or malalignment. XR/XR pelvis 1-2V IMPRESSION: Total left hip arthroplasty prosthesis with questionable loosening, superior left acetabulum. Electronically signed by: Tao Green MD 01/09/2025 10:59 AM EDT
--- NOTE | 2025-01-09 07:28 | MHC.SHP ---
Pre-Procedural Eval Section A - 24 Hr Update-Section A only Date of Service: 01/09/25 The patient is an INPATIENT: No Changes since office visit: No Cold of Flu in the past 2 weeks, No New Medical Problems, No Changes in Medication and No Patient answered all questions The patient has been examined within 24 hours of the surgical procedure. The History & Physical has been completed within 30 days and I have reviewed it.: Yes Section B - Complete if H&P > 30 days Chief Complaint: Unilateral primary osteoarthritis, left hip Allergies: Allergies Allergy/AdvReac Type Severity Reaction Status Date / Time fentanyl (FENTANYL) Allergy Intermediate VOMITING Verified 01/04/25 11:28 Penicillins (PENICILLINS) Allergy Intermediate ANAPHYLAXIS Verified 01/04/25 11:28 sertraline (From ZOLOFT) Allergy Intermediate ANXIETY Verified 01/04/25 11:28 zolpidem (From AMBIEN) Allergy Intermediate suicidal Verified 01/04/25 11:28 attempt with zolpidem Plan I have reviewed the history and physical and performed a pertinent physical examination on my patient. No changes have occurred unless specified. Time Spent With Patient Time: Total time managing care of this patient today ____ minutes.
[2025-01-09] MEDS: oxyCODONE HCl ER 10 MG TAB.ER.12H PO ×2 (07:34→20:49)
[2025-01-09 07:48] LABS: Hematocrit 41.0 % (37.0-47.0); Hemoglobin 13.3 g/dl (12.0-16.0)
[2025-01-09] MEDS: Lactated Ringers 1,000 ML 100 ML IVCONT ×3 (08:09→23:20)
--- NOTE | 2025-01-09 08:13 | PC.NURSE ---
patient states a nurse comes to her house to give her her medications. patient doesnt know her medications to verify.
--- NOTE | 2025-01-09 10:17 | P.OP_ITS ---
Operative Note Operative Note Date of Service: 01/09/25 Narrative: Date of Service: 01/09/25 Pre-op diagnosis: Left hip OA Post-op diagnosis: same Procedure: Left KRISTIN Implants: [place]2 50/10 deg lip; Accolade2 #4 132/ +0/32/ceramic Surgeon: Chris Silvestre MD Anesthesia: GETA Was an Staff Genetic Counselor used for this Procedure?: Yes Staff Genetic Counselor: Buddy Nix Estimated blood loss (mL): 150 IV fluids (mL): 800 Pathology: other Condition: stable Disposition: PACU Procedure in detail: Patient was brought into the operating room and placed in the right lateral decubitus position. All bony prominences were well padded and the limb was prepped and draped in standard sterile fashion. A time-out was called to identify proper site procedure proper surgeon IV antibiotics and 1 g of tranexamic acid were administered. I began by making a curvilinear incision over the posterolateral aspect of the greater trochanter. Dissection was taken down to the tensor fascia which was incised in line with the incision and a Charnley retractor was placed. A Werewolf cautery wand was used to maintain hemostasis. The hip was internally rotated and the external rotators were identified. The vessels were cauterized and a full-thickness capsular/external rotator layer was developed starting just distal to the piriformis. This layer was tagged and a dull Hohmann retractor was placed underneath the neck in the hip was dislocated. A neck cut was made 1 cm proximal to the lesser trochanter and the head and neck were removed and measured 46mm on the back table. The head was deformed and eburnated. I then removed the labrum and cauterized the fovea. I started with a 40 reamer and medialized to the inner table. I sequentially reamed up to a size 50 and impacted a 50mm cup at 45 degrees of inclination and 25 degrees of version. I then placed 2 6.5mm acetabular screws into the superior safe zone using standard AO technique. I then used a curved osteotome to remove inferior and anterior acetabular osteophytes while protecting the medail and anterior soft tissues with a dull retractor. I then placed a 10 deg posterior lipped liner and turned my attention to the femur. I identified the piriformis insertion and used a cookie cutter posterior to this. The medius tendon was protected with a Hibs retractor. A Charnley awl was inserted in the canal and a curved curette used to remove the lateral bone. I irrigated copiously. I then sequentially broached in the patient's natural version to a size 4 and placed my trial implants. I used a #4/132/+0 based on my pre-operative template. I removed all instrumentation and copiously irrigated. I placed my final femoral implant and again took the hip through range of motion and was satisfied with the stability and length. The final +0 implant was impacted in place and the hip reduced. I then irrigated copiously and placed 1 g IV tranexamic acid. I performed a capsular closure with 2.0 fiberwire, Juanita's fascia with 0 Vicryl, subcuticular with 2-0 Vicryl and the skin with kyler. 14ml Zynrelef was injected prior to each closure layer. Patient was placed into a sterile dressing. Patient was extubated brought to the recovery room in stable condition. There were no known complications.
[2025-01-09] MEDS: 0.9 % Sodium Chloride Flush 3 ML SYRINGE IVFLUSH ×2 (12:19→20:55)
--- NOTE | 2025-01-09 12:41 | PHA.MEDREC ---
Pharmacy Consult ? Medication Reconciliation Pharmacy has completed the medication reconciliation. Spoke with pt and she confirmed her medications. Pt confirmed she takes her Duloxetine 60mg tab BID, she takes Benztropine 1mg as needed for restlessness and she still has Quetiapine 50mg tabs as needed for sever agitation or anxiety.
--- NOTE | 2025-01-09 18:17 | HO.PM.IMCN ---
History of Present Illness Data of Consult Service Date: 01/09/25 Primary Care Provider: Valarie Akbar MD HPI Reason for consult: Medical management Patient is a 54-year-old female, with a background medical history of MDD, bipolar disorder, osteoarthritis, prior right hip replacement, presents to the hospital for elective left total hip arthroplasty for left hip osteoarthritis. Patient presented for office preoperative evaluation with Dr. Silvestre's office 01/04/2025. Denies chest pain, palpitations, dizziness, diaphoresis, dyspnea. Able to achieve > 4 METS Blood work from 01/04 revealing normal CBC, normal BMP, with creatinine 0.8 baseline, EGFR > 60, serum glucose 78, A1c 5.0%. Operative intervention completed 01/09, without complications. - estimated blood loss 150 mL - IV fluids 800 mL - stable during procedure Postoperatively, the patient has no new complaints. She has no active issues that she wishes to discuss. Pain control is adequate. Vital signs within normal limits. Blood pressure 106/56 mmHg, pulse 79, O2 sat within normal limits. Review of Systems Review of Systems: Yes all other systems are reviewed and are negative PMFSH Medical History S/P ECT (electroconvulsive therapy) History of headache Numbness Severe major depression without psychotic features MDD (major depressive disorder), recurrent episode, moderate Frequent falls Shoulder pain, bilateral Lumbar pain Screening for cervical cancer Osteoarthritis of right knee Urinary incontinence Skin lesion Right sided abdominal pain Cervical radiculopathy Osteoarthritis of acromioclavicular joint Rotator cuff tendonitis Chronic right shoulder pain Cervical strain Polyarthralgia Carpal tunnel syndrome Bipolar disorder Depression Anxiety Hypovitaminosis D Constipation by delayed colonic transit Family History Father Depression Prostate cancer Chronic mental illness Mother Diabetes Cancer Breast cancer Maternal Aunt Breast cancer Family/Other Chronic mental illness Other Mental health disorder Surgical History History of lumbar surgery Hx of colonoscopy History of surgery History of right hip replacement History of hemorrhoidectomy History of bunionectomy History of cholecystectomy History of appendectomy Social History Household Members: None Household Members Other:: My dog Housing: Apartment Are you a primary child care centre manager to a significant other at home: No Do you presently have visiting nurse or other home services: No Alcohol intake: never Patient Tobacco Use Status: Never used Tobacco e-Cigarette/Vaping Use: Never Used Second Hand Smoke Exposure: No Use of substances other than those prescribed or required for medical reasons: Yes Substance Use Type: Marijuana Substance Use Frequency: Occasionally Currently Displaying Signs/Symptoms of Drug Intoxication Withdrawal: No Have you been hit, kicked, punched, or otherwise hurt by someone within the past year? 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 Cognitive needs: No Hearing needs: No Vision needs: Yes (glasses) Meds Allergies Allergy/AdvReac Type Severity Reaction Status Date / Time fentanyl (FENTANYL) Allergy Intermediate VOMITING Verified 01/04/25 11:28 Penicillins (PENICILLINS) Allergy Intermediate ANAPHYLAXIS Verified 01/04/25 11:28 sertraline (From ZOLOFT) Allergy Intermediate ANXIETY Verified 01/04/25 11:28 zolpidem (From AMBIEN) Allergy Intermediate suicidal Verified 01/04/25 11:28 attempt with zolpidem Active Medications: Current Medications Acetaminophen (Acetaminophen 325 Mg Tablet) 650 mg PO Q6H PRN PRN Reason: Pain, Mild 1-3,fever,headache Aspirin (Aspirin 325 Mg Tablet) 325 mg PO BID DOM Benztropine Mesylate (Benztropine Mesylate 1 Mg Tablet) 1 mg PO BEDTIME PRN PRN Reason: EPS symptoms Celecoxib (Celecoxib 200 Mg Capsule) 200 mg PO BID DOM Clonazepam (Clonazepam 1 Mg Tablet) 1 mg PO BID PRN PRN Reason: Anxiety Docusate Sodium (Docusate Sodium 100 Mg Capsule) 100 mg PO BID DOM Duloxetine HCl (Duloxetine Hcl 60 Mg Capsule.Dr) 60 mg PO BID DOM Hydromorphone HCl (Hydromorphone Hcl 0.5 Mg/0.5 Ml Syringe) 0.25 mg IVPUSH Q4H PRN; Protocol PRN Reason: Pain, Severe (Pain Scale 7-10) Last Admin: 01/09/25 13:03 Dose: 0.25 mg Lactated Ringer's (Lr) 1,000 mls @ 100 mls/hr IVCONT .Q10H [facility] Stop: 01/10/25 08:00 Last Admin: 01/09/25 12:16 Dose: 100 mls/hr Vancomycin HCl 1,000 mg/ (Sodium Chloride) 270 mls @ 270 mls/hr IV POSTOP@2000 ONE Stop: 01/09/25 20:59 Influenza Virus Vaccine (Flu Vacc [id number](6mo Up)/Pf 0.5 Ml Syringe) 0.5 ml IM .ONCE ONE Stop: 01/10/25 12:01 Magnesium Hydroxide (Milk Of Magnesia 30 Ml Oral.Susp) 30 ml PO DAILY PRN PRN Reason: Constipation Ondansetron HCl (Ondansetron Hcl 4 Mg/2 Ml Vial) 4 mg IVPUSH Q8H PRN PRN Reason: Nausea and Vomiting Oxcarbazepine (Oxcarbazepine 150 Mg Tablet) 150 mg PO BID [facility] Oxcarbazepine (Oxcarbazepine 300 Mg Tablet) 600 mg PO BID [facility] Oxycodone HCl (Oxycodone Hcl Immed Release 5 Mg Tablet) 5 mg PO Q4H PRN PRN Reason: Pain, Moderate(Pain Scale 4-6) Oxycodone HCl (Oxycodone Hcl Er 10 Mg Tab.Er.12h) 10 mg PO BID [facility] Quetiapine Fumarate (Quetiapine Fumarate 50 Mg Tablet) 50 mg PO BID PRN PRN Reason: SEVERE AGITATION /ANXIETY Quetiapine Fumarate (Quetiapine Fumarate 400 Mg Tablet) 400 mg PO BEDTIME [facility] Sodium Chloride (0.9 % Sodium Chloride Flush 3 Ml Syringe) 3 ml IVFLUSH QSHIFT [facility] Last Admin: 01/09/25 12:19 Dose: 3 ml Home Medications ?Medication ?Instructions ?Recorded ?Confirmed ?Last Taken ?Type quetiapine 50 mg tablet 50 mg PO BID PRN severe anxiety or 12/20/24 01/09/25 Unknown History agitation benztropine 1 mg tablet 1 mg PO BEDTIME PRN eps symptoms 01/09/25 01/09/25 01/08/25 History diclofenac sodium 1 % topical gel 4 g topical BID PRN Pain 01/09/25 01/09/25 Unknown History duloxetine 60 mg capsule,delayed 60 mg PO BID 01/09/25 01/09/25 01/09/25 History release Physical Exam Vital Signs and Narrative: Vital Signs: Last Vital Signs Temp 97.0 F 01/09/25 16:00 Pulse 79 01/09/25 16:00 Resp 19 01/09/25 16:00 BP 106/56 L 01/09/25 16:00 Pulse Ox 94 01/09/25 16:00 O2 Del Method Room Air 01/09/25 16:00 O2 Flow Rate 6 01/09/25 10:33 BMI result Body Mass Index 34.2 General: A&O x3, oriented to time place person and situation, comfortable, no pain Cardiac: S1, S2 auscultated with no S3/4, no MRG. Well perfused. Respiratory: Normal breath sounds auscultated throughout all lung zones, without wheezing, rales. Normal rate. GI/ : No abdominal pain on palpation, no masses or distentions. MSK: Normal ambulation without pain at bony prominences or musculature Neurological: Normal neurological examination on overview, without obvious CN II-XII abnormalities. Results Labs 01/09/25 07:26 Imaging Radiologist's Impressions: Impressions Pelvis X-Ray 01/09/25 10:38 IMPRESSION: Total left hip arthroplasty prosthesis with questionable loosening, superior left acetabulum. Electronically signed by: Tao Green MD 01/09/2025 10:59 AM EDT Assessment and Plan (1) DAVID (generalized anxiety disorder): Status: Acute (2) Bipolar affective, depress, mod: Status: Acute (3) Mild major depression: Status: Acute (4) Osteoarthritis of left hip: Qualifiers: Osteoarthritis type: unspecified Qualified Code(s): M16.12 - Unilateral primary osteoarthritis, left hip Status: Acute Plan Patient is a 54-year-old female, with a background medical history of MDD, bipolar disorder, osteoarthritis, prior right hip replacement, presents to the hospital for elective left total hip arthroplasty for left hip osteoarthritis. Left hip osteoarthritis S/p left total hip arthroplasty 01/09 No complications pre/intra or postoperatively. Continue management as per surgical service Bipolar disorder Generalized anxiety disorder PTSD Extrapyramidal and movement disorder As per Psychiatry Service plan and recommendations in outpatient setting Continue benztropine 1 mg p.o. q.h.s. Continue duloxetine 60 mg a.m. Continue duloxetine 30 mg p.m. Continue lorazepam as needed Continue oxcarbazepine continue prazosin 1 mg bedtime Continue quetiapine bedtime Thank you for allowing us to contribute to this patient's management and care plan. We will sign off the case, unless there are further issues to be discussed or managed. Please do not hesitate to reconsult us with any further questions or concerns.
--- NOTE | 2025-01-09 21:49 | P.DS_ITS ---
DS: Providers Provider Date of Service: 01/09/25 Date of discharge: 01/10/25 Primary care physician: Valarie Akbar MD Consults: 01/09/25 11:42 Consult to Case Management Routine Comment: LT KRISTIN --? STR Consult to Hospitalist Routine Comment: [place] [facility] [place] Reason For Exam: medical managmenet DS: Diagnosis Discharge Diagnosis (1) History of total left hip replacement: Status: Acute DS: Summary Hospital Course Hospital Course: The patient underwent a successful left total hip arthroplasty on 01/09/[address] Silvestre , was transferred to PACU and then to the floor to recover. During their stay, their vitals were stable, afebrile at 99.0 . Labs were unremarkable, H/H 10.0/31.0 . POD 1 she was started on ASA 325mg tabs po tiwce a day for DVT ppx, they also received Physical Therapy services twice a day. Physical therapy should include gait training, core and lumbar strength, glute strength. Posterior precautions intact. WBAT. Prior to discharge, her dressing was clean dry and intact. The Aquacel dressing should remain intact and dry at all times. Any concerns with the dressing, please contact orthopedic office. No showering. The plan is to be discharged home with [facility]NA Time Attestation Discharge Coordination Time (in mins): 30 Quality: Safe Use of Opioids Does Pt have an Active Cancer Diagnosis on the Problem List?: No Quality: Stroke Does the patient have a stroke diagnosis?: No Physical Exam Vital Signs: Vital Signs: Last Vital Signs Temp 97.8 F 01/09/25 19:36 Pulse 81 01/09/25 19:36 Resp 19 01/09/25 19:36 BP 108/60 01/09/25 19:36 Pulse Ox 95 01/09/25 19:36 O2 Del Method Room Air 01/09/25 19:36 O2 Flow Rate 6 01/09/25 10:33 BMI result Body Mass Index 34.2 DS: Data Data Completed and Pending Pending studies at discharge: Pending at discharge 01/09/25 09:51 Surgical [PTH] Routine Labs on day of discharge: Laboratory Results - last 24 hr 01/09/25 07:26 Hgb 13.3 Hct 41.0 Discharge Plan Discharge Patient Disposition: Home Health Service Referrals: Buddy Nix PA-C [Physician [employer] Technician, Orthopedics] - 1 Week Referral Note: 01/25/25 09:45 [facility] [place] [facility] Buddy Nix PA-C Discharge Medications: New celecoxib 200 mg Capsule 200 mg PO BID 30 Days Qty: 60 0RF acetaminophen 325 mg Tablet 650 mg PO Q6H PRN (Reason: Pain, Mild 1-3,Fever,Headache) 30 Days Qty: 240 0RF aspirin 325 mg Tablet 325 mg PO BID 42 Days Qty: 84 0RF docusate sodium 100 mg Capsule 100 mg PO BID 7 Days Qty: 14 0RF oxycodone 5 mg Tablet 5 mg PO Q4H PRN (Reason: Pain, Moderate(Pain Scale 4-6)) 7 Days Qty: 42 0RF Rx Instructions: Partial Fill upon patient request. Continued (DME) Rollator with seat See Rx Instructions .Route .MEDSUPPLY Qty: 1 0RF Rx Instructions: As directed (DME) Folding Front Wheeled walker See Rx Instructions .ROUTE .MEDSUPPLY Qty: 1 0RF Rx Instructions: Duration: 99 days (DME) bed side commode See Rx Instructions .Route .MEDSUPPLY Qty: 1 0RF Rx Instructions: duration-99 days oxcarbazepine 150 mg tablet 150 mg PO BID 15 Days Qty: 30 1RF oxcarbazepine 600 mg tablet 600 mg PO BID 15 Days Qty: 30 1RF Patient Comments: total dose of 750 mg BID quetiapine 400 mg tablet 400 mg PO BEDTIME 15 Days Qty: 15 0RF clonazepam 1 mg tablet 1 mg PO BID Qty: 6 0RF quetiapine 50 mg tablet 50 mg PO BID PRN (Reason: severe anxiety or agitation) benztropine 1 mg tablet 1 mg PO BEDTIME PRN (Reason: eps symptoms) duloxetine 60 mg capsule,delayed release(DR/EC) 60 mg PO BID diclofenac sodium 1 % gel 4 g topical BID PRN (Reason: Pain) (DME) cane See Rx Instructions .Route .MEDSUPPLY Qty: 1 0RF Rx Instructions: As directed (DME) shower chair See Rx Instructions .Route .MEDSUPPLY Qty: 1 0RF Rx Instructions: As directed (DME) bed rail See Rx Instructions .Route .MEDSUPPLY Qty: 1 0RF Rx Instructions: As directed (DME) toilet seat elevator See Rx Instructions .Route .MEDSUPPLY Qty: 1 0RF Rx Instructions: As directed (DME) cane Device See Rx Instructions .Route Qty: 1 0RF Rx Instructions: As directed Discharge Orders: Discharge Order (Routine); Ordered 01/10/25 Ordered By: Buddy Nix Diet: Regular diet Activity on Discharge: Use cane or walker Activity Restrictions/Additional Instructions: Physical Therapy : Hip replacement- WBAT with walker, posterior precautions, gait training Use walker for ambulation Limit stair climbing No shower or tub bath No driving for 6 weeks Continue anticoagulant Keep Aquacel dressing clean, dry and intact. Follow up with orthopedics in 2 weeks -Bandage/Incision Site Care: -Ice 20mins at a time -Make sure you use a towel or cloth on your skin as a barrier -DO NOT remove the bandage -Keep Bandage clean, dry and intact -Do not get the bandage wet: -No tub bath, pools or hot tubs -If there are any concerns regarding the bandage please call orthopedics: [phone] -Hip Precautions: -Refrain from laying on side -No crossing the legs -Avoid low chairs and deep couches -Use supportive shoes with nonslip soles -Physical Therapy: -Patient is WBAT with the use of a walker -Strengthening: Quadriceps and hip muscles -Walking: Gait training and gradually increasing distance with walker -Ankle pumps and incentive spirometry to limit the risk of blood clot -Diet: -Resume regular diet as tolerated. -Drink plenty of fluids and eat a high-fiber foods to avoid constipation -This is a common side effect of pain medication) -Take stool softeners as prescribed -Blood Clot Prevention: -Take the prescribed blood thinner (Aspirin) as directed for 6 weeks -Perform ankle pumps and walk frequently with the walker and assistance if needed -Report calf pain, swelling, or shortness of breath immediately Print Language: Niuean
[2025-01-10] VITALS: BP 118/59; PULSE 92; RESP 18; TEMP 36.6; O2SAT 94
[2025-01-10] MEDS: oxyCODONE HCl Immed Release 5 MG TABLET PO ×2 (02:17→07:56)
[2025-01-10 03:27] VITALS: BP 100/54; PULSE 92; RESP 16; TEMP 37.1; O2SAT 93
[2025-01-10 06:37] LABS: MANUAL DIFF FLAG NO
[2025-01-10 07:01] LABS: Anion Gap 8 (12-20); Blood Urea Nitrogen 9 mg/dL (9-16); Calcium 8.4 mg/dL (8.4-10.2); Carbon Dioxide 27 mmol/L (22-29); Chloride 109 mmol/L (96-108); Creatinine Clr Calc Pharmacy 102.6; Estimated Glomerular Filt Rate > 60; Potassium 4.1 mmol/L (3.3-5.1); Sodium 140 mmol/L (135-145)
[2025-01-10 07:04] LABS: Hematocrit 31.0 % (37.0-47.0); Hemoglobin 10.0 g/dl (12.0-16.0); Imm Gran Abs Auto 0.05 X10*3/uL (0.00-0.03); Imm Gran Pct Auto 0.5 % (0.0-0.4); Lymphocytes Absolute Auto 2.4 X10*3/uL (1.2-4.9); Mean Corpuscular HGB Conc 32.3 g/dl (31.0-35.0); Mean Corpuscular Hemoglobin 30.7 pg (27.0-33.0); Mean Corpuscular Volume 95.1 fL (80.0-98.0); NRBC Abs Auto 0.000 X10*3/uL (0.0-0.012); NRBC Pct Auto 0.0 /100WBC (0.0-0.2); Platelet Count 178 X10*3/uL (160-400); Red Blood Count 3.26 X10*6/uL (4.20-5.50); White Blood Count 10.1 X10*3/uL (4.8-10.8)
[2025-01-10 07:24] VITALS: BP 104/56; PULSE 97; RESP 16; TEMP 37.2; O2SAT 100
[2025-01-10] MEDS: oxyCODONE HCl ER 10 MG TAB.ER.12H PO (07:36)
--- NOTE | 2025-01-10 08:15 | PM.PNORT ---
Subjective Subjective Date of Service: 01/10/25 Interval history: Postop day 1 status post left total hip arthroplasty 01/09/2025 No overnight events Resting comfortably in bed States she has been out of bed ambulating Denies chest pain shortness of breath or palpitations Physical Exam Vital Signs: Vital Signs: Last Vital Signs Temp 99.0 F 01/10/25 07:24 Pulse 97 01/10/25 07:24 Resp 16 01/10/25 07:24 BP 104/56 L 01/10/25 07:24 Pulse Ox 100 01/10/25 07:24 O2 Del Method Room Air 01/10/25 07:24 O2 Flow Rate 6 01/09/25 10:33 BMI result Body Mass Index 34.2 Const: General: cooperative and no acute distress Orientation/consciousness: patient oriented x3 Resp: Effort & Inspection: normal respiratory effort and able to speak in complete sentences Cardio: Peripheral pulses: Peripheral pulses 2+ throughout Neuro: General: patient oriented x3 Extrem: Other: Left hip bandage is clean dry and intact No surrounding erythema or ecchymosis She is able to activate straight leg raise Calf is supple and nontender she is able to dorsiflex and plantar flex. Pulses present sensation intact. Procedures Date of Service Date of Service: 01/10/25 Progress Note: A&P Assessment and plan (1) History of total left hip replacement: Status: Acute Assessment and Plan: Pain control Begin physical therapy for left total hip arthroplasty posterior precautions Begin aspirin for DVT prophylaxis Dispo pending PT clearance home with VNA Time Spent With Patient Time: Total time managing care of this patient today ____ minutes. Quality Stroke Does the patient have a stroke diagnosis?: No VTE Prior VTE?: No VTE Risk Level:: Surgical - very high VTE Device Contraindication: N/A - Device Ordered VTE Drug Contraindication: N/A - Med Ordered
--- NOTE | 2025-01-10 08:21 | W.MHC.F2F ---
Service Date Service Date: 01/10/25 Encounter Date of encounter: 01/10/25 Reasons for Services Signs and symptoms assessed: Weakness, poor balance, poor gait mechanics Reason for physical therapy: home safety and mobility, therapeutic exercises, restore joint function, gait/transfer training, ADL training and energy conservation Reason for occupational therapy: home safety and mobility, therapeutic exercises, restore joint function, gait/transfer training, ADL training and energy conservation Overseeing Care: Chris Silvestre Homebound: Leaving the home is medically contraindicated at this time without the asist of a device and/or another person due th the listed conditions above and below. Reason homebound: unsteady gait / fall risk, pain with ambulation, poor balance / fall risk and unable to drive Homebound supporting statement: Pt. is considered home bound due to recent surgery. Unable to drive, poor balance, poor gait mechanics. Certification: Based on the above findings, I certify that this patient is confined to the home and needs intermittent [facility] care, physical therapy and/or speech therapy, or continues to need occupational therapy. The patient is under my care, and I have initiated the establishment of the plan of care. The patient will be followed by a physician who will periodically review the plan of care. Time Spent With Patient Time: Total time managing care of this patient today ____ minutes.
--- NOTE | 2025-01-10 08:29 | HO.POSTANES ---
Post Anesthesia Evaluation Post Anesthesia Evaluation Date of Service: 01/10/25 Vital Signs: Vital Signs Temp Pulse Resp BP Pulse Ox O2 Del Method 01/10/25 07:24 99.0 F 97 16 104/56 L 100 Room Air 01/10/25 03:27 98.8 F 92 16 100/54 L 93 Room Air 01/10/25 00:00 97.8 F 92 18 118/59 L 94 Room Air Anesthesia: General Mental Status: Awake Pain Control: Satisfactory Nausea/Vomiting: None Hydration: Adequate Anesthesia-Related Issues: No Anes. Related Issues
--- NOTE | 2025-01-10 11:01 | MHC.CM.PN ---
Patient lives in an apartment alone. Has a ROD DRAWER through Last 40.5 hrs/wk, increasing by 18 hrs soon. Ambulates w/ cane. PCP Valarie Akbar MD HCP on file and verified DP: Medically cleared for dc home w/ new [facility] services for PT. Lyft transport.
== END 2025-01-10 11:18 | disposition home health service (06) ==
LOC: HO.SSS 06:56 → HO.S3 11:31
PROVIDERS: Physician Assistant; PCP Internal Medicine; Visit Provider Orthopaedic Surgery
PROC: (CPT 27130; principal; 2025-01-09 08:30)
DX: M16.12 Unilateral primary osteoarthritis, left hip (principal); M25.552 Pain in left hip; F31.31 Bipolar disorder, current episode depressed, mild; F41.9 Anxiety disorder, unspecified; M17.11 Unilateral primary osteoarthritis, right knee; Z96.641 Presence of right artificial hip joint; E55.9 Vitamin D deficiency, unspecified; Z91.81 History of falling; Z79.899 Other long term (current) drug therapy; Z99.89 Dependence on other enabling machines and devices; Z88.0 Allergy status to penicillin; Z88.5 Allergy status to narcotic agent; Z90.49 Acquired absence of other specified parts of digestive tract
CPT/HCPCS: 27130; 36415; 72170; 80048; 85014; 85018; 85025; 86850; 86900; 86901; 87640; 87641; 88305; 88311; 97162; 97166; 97530; C1713; C1776; J0131; J0668; J1100; J1171; J2003; J2250; J2371; J2405; J2704; J3010; J3374; J7120

== ENCOUNTER → 2025-01-09 06:56 | Outpatient (BNV) | payer OTHER, SELFPAY | PROVIDERS: PCP Internal Medicine; Visit Provider Hospitalist | DX: F41.1 Generalized anxiety disorder (principal); F31.32 Bipolar disorder, current episode depressed, moderate; F32.0 Major depressive disorder, single episode, mild; M16.12 Unilateral primary osteoarthritis, left hip | CPT/HCPCS: 99222 ==

== ENCOUNTER → 2025-01-09 06:56 | Outpatient (BNV) | payer OTHER, SELFPAY | PROVIDERS: PCP Internal Medicine; Visit Provider Orthopaedic Surgery | DX: Z47.1 Aftercare following joint replacement surgery (principal); Z96.642 Presence of left artificial hip joint | CPT/HCPCS: 27130; 99024; G0180 ==

== ENCOUNTER → 2025-01-09 10:26 | Outpatient (BNV) | payer OTHER, SELFPAY | PROVIDERS: PCP Internal Medicine; Visit Provider Radiology Diagnostic Radiology | DX: Z96.642 Presence of left artificial hip joint (principal) | CPT/HCPCS: 72170 ==

== ENCOUNTER 2025-01-25 09:19 | Outpatient (AMB) | payer OTHER, SELFPAY ==
--- NOTE | 2025-01-25 09:22 | MHC.OFFVIS ---
Intake Visit Reasons: 2WKPO: L KRISTIN w/NE 01/09/25 Intake Note: Cathy is a 55 year old female who presents today post operatively after undergoing a left KRISTIN, performed by Dr. Silvestre on 01/09/25. Patient reports that her current pain level is a 4 out of 10. She is requesting to be prescribed percocet as the oxycodone is making her light headed and she does not like the feeling. She mentions that she knows she was not suppose to however she showered yesterday. Allergies fentanyl (FENTANYL) Allergy (Intermediate, Verified 01/25/25 09:29) VOMITING Penicillins (PENICILLINS) Allergy (Intermediate, Verified 01/25/25 09:29) ANAPHYLAXIS sertraline (From ZOLOFT) Allergy (Intermediate, Verified 01/25/25 09:29) ANXIETY zolpidem (From AMBIEN) Allergy (Intermediate, Verified 01/25/25 09:29) suicidal attempt with zolpidem Medication List - Last Reconciled 01/25/25 by Buddy Nix PA-C acetaminophen 650 mg (2 x 325 mg) PO Q6H PRN 30 days aspirin 325 mg PO BID 42 days [bed rail As directed] [bed side commode duration-99 days] benztropine 1 mg PO BEDTIME PRN [cane As directed] cane As directed celecoxib 200 mg PO BID 30 days clonazepam 1 mg PO BID diclofenac sodium 1% 4 grams topical BID PRN docusate sodium 100 mg PO BID 7 days duloxetine 60 mg PO BID [Folding Front Wheeled walker Duration: 99 days] oxcarbazepine 150 mg PO BID 15 days oxcarbazepine 600 mg PO BID 15 days quetiapine 400 mg PO BEDTIME 15 days quetiapine 50 mg PO BID PRN [Rollator with seat As directed] [shower chair As directed] [toilet seat elevator As directed] HPI HPI 2WKPO: L KRISTIN w/NE 01/09/25: Details: 55-year-old female returns to the office today status post left total hip arthroplasty on 01/09/[address] Silvestre. She is ambulating with a walker and continues to work with physical therapy and is in the process of transitioning to outpatient physical therapy. She has no concerns today. [facility] Medical History S/P ECT (electroconvulsive therapy) History of headache Numbness Severe major depression without psychotic features MDD (major depressive disorder), recurrent episode, moderate Frequent falls Shoulder pain, bilateral Lumbar pain Screening for cervical cancer Osteoarthritis of right knee Urinary incontinence Skin lesion Right sided abdominal pain Cervical radiculopathy Osteoarthritis of acromioclavicular joint Rotator cuff tendonitis Chronic right shoulder pain Cervical strain Polyarthralgia Carpal tunnel syndrome Bipolar disorder Depression Anxiety Hypovitaminosis D Constipation by delayed colonic transit Surgical History History of lumbar surgery Hx of colonoscopy History of surgery History of right hip replacement History of hemorrhoidectomy History of bunionectomy History of cholecystectomy History of appendectomy Family History Father Depression Prostate cancer Chronic mental illness Mother Diabetes Cancer Breast cancer Maternal Aunt Breast cancer Family/Other Chronic mental illness Other Mental health disorder Social History Household Members: None Household Members Other:: My dog Housing: Apartment Are you a primary intensive care anaesthetist to a significant other at home: No Do you presently have visiting nurse or other home services: No Alcohol intake: never Patient Tobacco Use Status: Never used Tobacco e-Cigarette/Vaping Use: Never Used Second Hand Smoke Exposure: No Substance Use Type: Marijuana Advance Directives Date on File: 01/17/24 service: No Current occupational status: disabled 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 No surrounding erythema or drainage. She is able to perform flexion and range of motion of the hip. Calf is supple and nontender neurovascularly intact. Assessment & Plan Assessment & Plan (1) History of total left hip replacement: Code(s): Z96.642 - Presence of left artificial hip joint Category: Surgical Plan: Rowe removed today Steri-Strips applied. The patient will continue working with physical therapy to improve strength and gait training. She requested an order for physical therapy so she could attend [facility] closer to home. An order was printed and handed to her and reminded that she needed to make the appointment. I reminded the patient no dental work until 3 months post op and he will require antibiotics for dental prophylaxis. Patient was reminded no driving until 6 weeks postop. They will return in 4 weeks for routine follow up, sooner if needed. Medications: New oxycodone-acetaminophen 5-325 mg (Percocet) Partial Fill upon patient request. 1 tab PO Q6H PRN 28 tabs 0RF pain 7 days Z96.651 - Presence of right artificial knee joint Coding Level of Care Code Global (02043) Diagnoses History of total left hip replacement Z96.642
--- OUTSIDE RECORDS SUMMARY | 2025-01-25 10:38 | XMS_ITS | Clinical Summary ---
Author Organization [employer] [facility] Address [address] [place] [address] Care Team Providers Care Manager Privacy Name Role Phone Unavailable Primary Care Provider [...] patient's age to complete this topic Insurance [facility] STANDARD [facility] ADV
--- OUTSIDE RECORDS SUMMARY | 2025-01-25 10:38 | XMS_ITS | Encounter Summary ---
Author Organization [facility] Address [address] [place] [address] Care Team Providers Care Motor Equipment Commanding Officer Name Role Phone Valarie Akbar MD Primary Care Provider [phone] Encounter Details Date Type Department Care Team (Late st Contact Info) Description 01/18/[address] [facility] - [facility] Lab [address] [place] [address] Gary Kam MD [address] [place] [address] [address] [place], [phone] Bipolar disorder, unspecified (CMS/HCC V24, CMS/HCC [...] AM EST Office Visit Orthopedic Surgery - [place] [address] [phone] Mateo Weathers DPM [address] [phone] documented as of this encounter Procedures Procedure [...] Hemoglobin A1c (01/18/2024 6:29 AM EST) Pathologist [facility] Hemoglobin A1C 5.1 <6.5 % LAB CHEMISTRY METHOD 01/18/2024 8:31 PM EST [facility] Mean Bld Glu Estim. 100 mg/dL LAB CHEMISTRY METHOD 01/18/2024 8:31 PM [facility] Blood Venous blood specimen / Unknown 01/18/2024 6:29 AM EST 01/18/2024 1:32 PM EST us Gary Kam MD LAB BLOOD ORDERABLES Final Resul t [facility] [address] [place] [address], * CBC auto differential (01/18/2024 6:29 AM EST) Pathologist [facility] WBC 5.4 4.8 - 10.8 K/mcL LAB HEMETOLOGY METHOD 01/18/2024 1:33 PM EST [facility] RBC 4.80 3.80 - 4.80 M/mcL LAB HEMETOLOGY METHOD 01/18/2024 1:33 PM EST [facility] Hemoglobin 14.9 11.5 - 16.0 g/dL LAB HEMETOLOGY METHOD 01/18/2024 1:33 PM EST [facility] Hematocrit 45.7 35.0 - 47.0 % LAB HEMETOLOGY METHOD 01/18/2024 1:33 PM [facility] MCV 95.0 79.0 - 98.0 FL LAB HEMETOLOGY METHOD 01/18/2024 1:33 PM [facility] MCH 31.0 27.0 - 32.0 pcg LAB HEMETOLOGY METHOD 01/18/2024 1:33 PM [facility] MCHC 32.6 32.0 - 37.0 g/dL LAB HEMETOLOGY METHOD 01/18/2024 1:33 PM [facility] RDW 13.2 11.0 - 15.0 % LAB HEMETOLOGY METHOD 01/18/2024 1:33 PM [facility] Platelets 307 130 - 400 K/mcL LAB HEMETOLOGY METHOD 01/18/2024 1:33 PM [facility] MPV 9.2 7.0 - 11.0 FL LAB HEMETOLOGY METHOD 01/18/2024 1:33 PM [facility] NRBC 0.0 <1.0 % LAB HEMETOLOGY METHOD 01/18/2024 1:33 PM [facility] NRBC Absolute 0.00 <0.10 K/mcL LAB HEMETOLOGY METHOD 01/18/2024 1:33 PM [facility] Neutrophils Relative 56.6 % LAB HEMETOLOGY METHOD 01/18/2024 1:33 PM [facility] Lymphocytes Relative 31.6 % LAB HEMETOLOGY METHOD 01/18/2024 1:33 PM [facility] Monocytes Relative 4.8 % LAB HEMETOLOGY METHOD 01/18/2024 1:33 PM [facility] Eosinophils Relative 5.9 % LAB HEMETOLOGY METHOD 01/18/2024 1:33 PM [facility] Basophils Relative 0.7 % LAB HEMETOLOGY METHOD 01/18/2024 1:33 PM EST [facility] Immature Granulocytes Relative 0.4 % LAB HEMETOLOGY METHOD 01/18/2024 1:33 PM EST [facility] Neutrophils Absolute 3.04 1.50 - 7.00 K/mcL LAB HEMETOLOGY METHOD 01/18/2024 1:33 PM EST [facility] Lymphocytes Absolute 1.70 1.00 - 5.00 K/mcL LAB HEMETOLOGY METHOD 01/18/2024 1:33 PM [facility] Monocytes Absolute 0.26 0.20 - 1.00 K/mcL LAB HEMETOLOGY METHOD 01/18/2024 1:33 PM EST [facility] Eosinophils Absolute 0.32 0.00 - 0.50 K/[facility] LAB HEMETOLOGY METHOD 01/18/2024 1:33 PM [facility] Basophils Absolute 0.04 0.00 - 0.20 K/mcL LAB HEMETOLOGY METHOD 01/18/2024 1:33 PM EST [facility] Immature Granulocytes Absolute 0.02 0.00 - 0.03 K/mcL LAB HEMETOLOGY METHOD 01/18/2024 1:33 PM [facility] Blood Venous blood specimen / Unknown Venipuncture / Unknown 01/18/2024 6:29 AM EST 01/18/2024 12:24 PM EST us Gary Kam MD LAB BLOOD ORDERABLES Final Resul t [facility] [address] [place] [address], * Travel phlebotomy fee (01/18/2024 6:29 AM EST) [facility] TRAVEL PHLEBOTOMY FEE Completed 01/18/2024 1:02 PM EST [facility] Blood Venous blood specimen / Unknown Venipuncture / Unknown 01/18/2024 6:29 AM EST 01/18/2024 12:24 PM EST us Gary Kam MD LAB BLOOD ORDERABLES Final Resul t [facility] [address] [place] [address], [place] [phone] * (ABNORMAL) Comprehensive metabolic panel (01/18/2024 6:29 AM EST) Sodium 140 133 - 145 mmol/L LAB CHEMISTRY METHOD 01/18/2024 4:18 PM [facility] Potassium 5.3 3.5 - 5.5 mmol/L LAB CHEMISTRY METHOD 01/18/2024 4:18 PM [facility] Chloride 111(H) 96 - 110 mmol/L LAB CHEMISTRY METHOD 01/18/2024 4:18 PM [facility] CO2 24 21 - 32 mmol/L LAB CHEMISTRY METHOD 01/18/2024 4:18 PM [facility] Anion Gap 5 3 - 11 LAB CHEMISTRY METHOD 01/18/2024 4:18 PM [facility] Glucose 69(L) 70 - 100 mg/dL LAB CHEMISTRY METHOD 01/18/2024 4:18 PM [facility] BUN 11 5 - 25 mg/dL LAB CHEMISTRY METHOD 01/18/2024 4:18 PM [facility] Creatinine 0.82 0.50 - 1.10 mg/dL LAB CHEMISTRY METHOD 01/18/2024 4:18 PM [facility] eGFR 84 >=60 mL/min/1. 73m2 LAB CHEMISTRY METHOD 01/18/2024 4:18 PM [facility] Comment:Calculation based on the Chronic Kidney Disease Epidemiology Collaboration (CKD-EPI) equation refit without adjustment for race. BUN/Creatinine Ratio 13.4 LAB CHEMISTRY METHOD 01/18/2024 4:18 PM [facility] Calcium 10.6(H) 8.5 - 10.5 mg/dL LAB CHEMISTRY METHOD 01/18/2024 4:18 PM [facility] AST (SGOT) 36 10 - 42 unit/L LAB CHEMISTRY METHOD 01/18/2024 4:18 PM [facility] ALT (SGPT) 34 10 - 60 unit/L LAB CHEMISTRY METHOD 01/18/2024 4:18 PM [facility] Alkaline Phosphatase 167(H) 42 - 121 unit/L LAB CHEMISTRY METHOD 01/18/2024 4:18 PM [facility] Total Protein 9.0(H) 6.0 - 8.0 g/dL LAB CHEMISTRY METHOD 01/18/2024 4:18 PM [facility] Albumin 4.7 3.2 - 5.0 g/dL LAB CHEMISTRY METHOD 01/18/2024 4:18 PM [facility] Total Bilirubin 0.6 0.0 - 1.4 mg/dL LAB CHEMISTRY METHOD 01/18/2024 4:18 PM [facility] Blood Venous blood specimen / Unknown Venipuncture / Unknown 01/18/2024 6:29 AM EST 01/18/2024 12:24 PM EST us Gary Kam MD LAB BLOOD ORDERABLES Final Resul t [facility] [address] [place] [address], documented in this encounter Visit Diagnoses Diagnosis Bipolar disorder, unspecified (CMS/HCC V24, CMS/HCC V28) Bipolar disorder, unspecified documented in this encounter Care Teams Motor Equipment Commanding Officer Relationship Specialty Start Date End Date Valarie Akbar MD [address] [place] [address] , [address] [facility] D[facility]A: [facility] [place], [place] PCP - General Internal Medicine 02/18/24 documented as of this encounter
--- OUTSIDE RECORDS SUMMARY | 2025-01-25 10:38 | XMS_ITS | Clinical Summary ---
Author Organization [address] Address [address] [place] [address] Phone Care Team Providers Care Circular Saw Edge Fuser Name Role Phone Valarie Akbar MD Primary Care Provider Allergies Active Allergy Reactions Criticality Noted Date Comments Fentanyl 04/18/2024 Penicillins 04/18/2024 Medications No known medications Social History Tobacco Use Types Packs/Day Years [...] 10:30 AM EST Office Visit Orthopedic Surgery [facility] [address] [address] Mateo Weathers, DPJuventino [address] [phone] Health Maintenance Due Date Last Done Comments [...] age to complete this topic Insurance [facility] Member Subscriber Plan / Payer (Ef fective 2016-Present) Name:MELINDA KOENIG Relation to Subscriber:Self Name:Melinda Koenig I Payer ID:[id number] Group ID:[id number] Type:Not on file Address: [address] [place] [phone] MEDICAID - [place] Care Teams Circular Saw Edge Fuser Relationship Specialty Start Date End Date Valarie Akbar MD 2 [facility] , [address] [facility] D/B/A: [facility] [place]QUELINE Bhatti PCP - General Internal Medicine 02/18/24
== END 2025-01-25 10:19 | disposition home or self-care (01) ==
LOC: HO.HOS 09:20
PROVIDERS: PCP Internal Medicine; Visit Provider Physician Assistant
DX: Z96.642 Presence of left artificial hip joint (principal)
CPT/HCPCS: 99024

== ENCOUNTER → 2025-01-25 09:19 | Outpatient (BNVA) | payer OTHER, SELFPAY | PROVIDERS: PCP Internal Medicine; Visit Provider Physician Assistant | DX: Z96.642 Presence of left artificial hip joint (principal) | CPT/HCPCS: 99212 ==

== ENCOUNTER 2025-02-22 12:15 | Outpatient (REF) | payer OTHER, SELFPAY ==
--- NOTE | ~2025-02-22 | XR_ITS ---
EXAMINATION: XR PELVIS CLINICAL INFORMATION: M25.559 - Pain in unspecified hip COMPARISON: January 09, 2025. TECHNIQUE: AP view of the pelvis. FINDINGS: Metallic prosthesis with an acetabular and femoral component well-seated in the osseous structures of the hips. Metallic screws anchor in the left acetabulum. Marginal osteophyte formation in the superior lateral aspect of the left acetabulum. No acute fracture or dislocation. No subcutaneous emphysema. XR/XR pelvis 1-2V IMPRESSION: Status post total hip arthroplasty prosthesis, bilaterally. Stable. Electronically signed by: Tao Green MD 02/22/2025 02:34 PM EST RP
== END 2025-02-22 12:16 | disposition home or self-care (01) ==
LOC: HO.HOSX 12:15
PROVIDERS: Visit Provider Orthopaedic Surgery
DX: Z47.89 Encounter for other orthopedic aftercare (principal); Z96.642 Presence of left artificial hip joint
CPT/HCPCS: 72170; 99212

== ENCOUNTER 2025-02-22 14:17 | Outpatient (AMB) | payer OTHER, SELFPAY ==
--- NOTE | 2025-02-22 14:49 | MHC.OFFVIS ---
Intake Visit Reasons: 6WKPO: L KRISTIN w/NE 01/09/25 Intake Note: Cathy is a 55 year old female who presents today post operatively after undergoing a left KRISTIN, performed by Dr. Silvestre on 01/09/25.Patient reports that she is felling better but she does have some sharp pinching pain at the top of her incision. She explains that it feels like she has a staple still in, but while looking at the incision it is clear that there is no retained kyler. Allergies fentanyl (FENTANYL) Allergy (Intermediate, Verified 01/25/25 09:29) VOMITING Penicillins (PENICILLINS) Allergy (Intermediate, Verified 01/25/25 09:29) ANAPHYLAXIS sertraline (From ZOLOFT) Allergy (Intermediate, Verified 01/25/25 09:29) ANXIETY zolpidem (From AMBIEN) Allergy (Intermediate, Verified 01/25/25 09:29) suicidal attempt with zolpidem HPI Comments Details: Interval History The patient is a 55-year-old female presenting for follow-up after left total hip arthroplasty. She reports feeling very good overall since the surgery. However, she expresses concern about the presence of snow and ice, which makes her afraid of falling and impacts her mobility. The patient mentions a small area of pronounced tissue at the edge of her incision, which seems to be a part of the healing process, and she has been advised to massage it. Results - X-rays reviewed during the visit show satisfactory alignment and healing of the left hip prosthesis. [facility] Medical History S/P ECT (electroconvulsive therapy) History of headache Numbness Severe major depression without psychotic features MDD (major depressive disorder), recurrent episode, moderate Frequent falls Shoulder pain, bilateral Lumbar pain Screening for cervical cancer Osteoarthritis of right knee Urinary incontinence Skin lesion Right sided abdominal pain Cervical radiculopathy Osteoarthritis of acromioclavicular joint Rotator cuff tendonitis Chronic right shoulder pain Cervical strain Polyarthralgia Carpal tunnel syndrome Bipolar disorder Depression Anxiety Hypovitaminosis D Constipation by delayed colonic transit Surgical History History of lumbar surgery Hx of colonoscopy History of surgery History of right hip replacement History of hemorrhoidectomy History of bunionectomy History of cholecystectomy History of appendectomy Family History Father Depression Prostate cancer Chronic mental illness Mother Diabetes Cancer Breast cancer Maternal Aunt Breast cancer Family/Other Chronic mental illness Other Mental health disorder Social History Household Members: None Household Members Other:: My dog Housing: Apartment Are you a primary manager wound care to a significant other at home: No Do you presently have visiting nurse or other home services: No Alcohol intake: never Patient Tobacco Use Status: Never used Tobacco e-Cigarette/Vaping Use: Never Used Second Hand Smoke Exposure: No Substance Use Type: Marijuana Advance Directives Date on File: 01/17/24 service: No Current occupational status: disabled 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 Otherwise clean and dry. No pain with hip ROM Assessment & Plan Assessment & Plan (1) History of total left hip replacement: Code(s): Z96.642 - Presence of left artificial hip joint Category: Surgical Plan Plan 1. Follow-Up For Left Total Hip Arthroplasty (Kristin) Post-Operative Care The patient is advised to continue with regular follow-up appointments to monitor the healing process of the left hip arthroplasty. She should be cautious while walking, especially in snowy and icy conditions, to prevent falls. The patient is instructed to massage the area around the bulleta to aid in the healing process. A follow-up appointment is scheduled in six weeks to reassess her progress. Discussion Notes During the visit, the patient expressed concerns about the risk of falling due to snow and ice, which could impact her recovery from the left hip arthroplasty. The clinician reassured her that the x-rays show good healing and alignment of the hip prosthesis. The patient was advised to be cautious in icy conditions and to massage the area around the bulleta to aid healing. Orders: Orders XR pelvis 1-2V Today M25.559 - Pain in unspecified hip Coding Level of Care Code Global (37260) Diagnoses History of total left hip replacement Z96.642
--- OUTSIDE RECORDS SUMMARY | 2025-02-22 21:52 | XMS_ITS | Data Portability ---
Author Organization [facility], Main Office Address [address], [address] [place] [address] Care Team Providers Care Threat Monitoring Analyst Name Role Phone KARL HARPER - 2ND FLOOR OTHER AMELIE LEDESMA Primary Care Provider [phone] Assessment No assessment recorded. Plan of Treatment [...] Recorded Time Pain in left lower limb 368954656 Active 2023 OLESYA MARTINEZ NP [address], [address], [place], [address], [facility] 4 12:26:33 Asthenia 76421326 Active 2023 OLESYA MARTINEZ NP [address], [address], [place], [address], [facility] 4 12:26:40 Recurrent falls 596753324 Active 2023 OLESYA MARTINEZ NP [address], [address], [place], [address], [facility] 4 12:26:58 Major depressive disorder 627844112 Active 2023 OLESYA MARTINEZ NP [address], [address], [place], [address], [facility] 4 12:27:07 Anxiety 25008439 Active 2023 OLESYA MARTINEZ NP [address], [address], [place], [address], [facility] 4 12:27:14 Bipolar disorder 65637741 Active 2023 OLESYA MARTINEZ NP [address], [address], [place], [address], [facility] 4 12:27:21 Fibromyalgia 316409252 Active 2023 OLESYA MARTINEZ NP [address], [address], [place], [address], [facility] 4 12:27:33 Post-traumatic stress disorder 03564826 Active 2023 OLESYA MARTINEZ NP [address], [address], [place], [address], [facility] 4 12:27:39 Urinary incontinence 874521917 Active 2023 OLESYA MARTINEZ NP [address], [address], [place], [address], [facility] 4 12:29:15 Osteoarthritis 219827858 Active 2023 OLESYA MARTINEZ NP [address], [address], [place], [address], [facility] 4 12:29:20 Carpal tunnel syndrome 75643174 Active 2023 OLESYA MARTINEZ NP [address], [address], [place], [address], [facility] 4 12:29:48 Vitamin D deficiency 52334608 Active 2023 OLESYA MARTINEZ NP [address], [address], [place], [address], [facility] 4 12:29:58 Constipation 45464478 Active 2023 OLESYA MARTINEZ NP [address], [address], [place], [address], [facility] 4 12:30:10 Problem Notes None recorded. Medical Equipment None Reported. Allergies Allergen ID Allergen Name Allergen Category Reaction Reaction Severity Criticality Documentation Date Start Date Code Code System Note Provider Name and Address Organization Details Recorded Time 70695 fentanyl medicatio n Not available Not available Not available 01/18/2024 4337 RxNorm vomit ing OLESYA MARTINEZ NP [address] [facility], [address], [place], [address], [facility] 4 12:11:38 00372 Product containin g penicilli n (product) medicatio n Not available Not available Not available 01/18/2024 64627 8001 SNOMED anaph ylaxi s OLESYA MARTINEZ NP [address] [facility], [address], [place], [address], [facility] 4 12:12:12 76372 Zoloft medicatio n Not available Not available Not available 01/18/2024 68811 RxNorm anxie ty OLESYA MARTINEZ NP [address] [facility], [address], [place], [address], [facility] 4 12:12:28 57348 Ambien medicatio n Not available Not available Not available 01/18/2024 20331 5 RxNorm suici jazmyn attem pt OLESYA MARTINEZ NP [address] [facility], [address], [place], [address], [facility] 4 12:12:44 Vitals Date Recorded Heart rate Respiratory rate Body temperature Oxygen saturation Systolic And Diastolic Provider Name and Address Organization Details Last Updated DateTime 4 82 /min 18 /min 98 [degF] 99 % 132/75 mm[Hg] OLESYA MARTINEZ NP [address] [facility], [address], [place], [address], [facility] 4 12:08:28 Social History Question Answer Notes LastModified by Organizat ion Details LastModified Time Tobacco Smoking Status Never Smoker OLESYA MARTINEZ NP [address] [facility], [address], [place], [address], [facility] 01/18/2024 12:34:28 Do You Have An Advance Directive? Yes [email or web address] Information not available 01/18/2024 What Is Your Code Status? Full Code [email or web address] Information not available 01/18/2024 Which Illicit Or Recreational Drugs Have You Used? Cannabis For Pain Mgmt. Information not available 01/18/2024 Where Do You Live? Apartment [address] Lives With Dog. Sister Nearby, Supportive . HANDICAPPER HARNESS RACING 28 Hrs/wk [email or web address] Information not available 01/18/2024 Do You Have A Medical Power Of Die Casting Machine Setter? Yes Has HCP [email or web address] Information not available 01/18/2024 What Was The Date Of Your Most Recent Tobacco Screening? 01/18/2024 [email or web address] Information not available 01/18/2024 Do You Have An Out Of Hospital DNR? Yes [email or web address] Information not available 01/18/2024 Have You Used IV Drugs? No [email or web address] Information not available 01/18/2024 Sex: Unknown Functional Status Question Answer Note LastModified by Organizat ion Details LastModified Time Do you use any illicit or recreational drugs? Yes [email or web address] Information not available 01/18/2024 Do you or have you ever used any other forms of tobacco or nicotine? No [email or web address] Information not available 01/18/2024 What is your level of alcohol consumption? None [email or web address] Information not available 01/18/2024 Mental Status None recorded. Family History Relationship Description Onset Age of this Age Resolved Age Notes LastModified by Organization Details LastModified Time Father Depressive disorder [email or web address] Not available 2023 12:32:30 Father Mental disorder [email or web address] Not available 2023 12:32:51 Mother Diabetes mellitus Not available 2023 12:33:28 Mother Malignant neoplasm of breast [email or web address] Not available 2023 12:33:40 Medical History No medical history recorded. Gynecological HistoryNo gynecological history recorded. Obstetrics History GPAL:G 0 P 0 0 0 0 Immunizations Vaccine Type Date Status Note Provider Nam e and Address Organization Details Recorded Time Tdap 07/29/2018 betsy Carvajal [facility] 01/20/2024 16:39:53 Td(adult) unspecified formulation 07/06/2017 betsy Carvajal [facility] 01/20/2024 16:40:06 SARS-COV-2 (COVID-19) vaccine, UNSPECIFIED 07/18/2020 completed Ananya [facility] 01/20/2024 16:40:50 SARS-COV-2 (COVID-19) vaccine, UNSPECIFIED 08/15/2020 completed Ananya [facility] 01/20/2024 16:40:57 SARS-COV-2 (COVID-19) vaccine, UNSPECIFIED 03/04/2021 completed Ananya [facility] 01/20/2024 16:41:06 SARS-COV-2 (COVID-19) vaccine, UNSPECIFIED 03/25/2022 completed Ananya [facility] 01/20/2024 16:41:16 SARS-COV-2 (COVID-19) vaccine, UNSPECIFIED 12/29/2022 completed Ananya [facility] 01/20/2024 16:41:24 Past Encounters Encounter ID Performer Location Encounter Start Date Encounter Closed Date Diagnosis/Indication Diagnosis SNOMED-CT Code Diagnosis ICD10 Code Diagnosis IMO Codes Diagnosis Note [id number] OLESYA MARTINEZ NP [address] [address] 01/18/2024 12:07:38 01/19/2024 10:19:11 Pain in left lower limb 449580814 M79.605 with hx. of recurrent fallsMSIR 15 [...] and txRefer to PMR as well. Asthenia 43659345 R53.1 PT OT eval and tx.Gait instabilit y due left bunion/megan lous which in turn contribute s to L hip/LE painManage pain as aboveRefer to PMRGoal is to return home. Bipolar disorder 2241959 4 F31.9 anxiety, depression , complicate d [...] med mgmt.Monit or mood and behaviors Fibromyalgia 715768766 M 79.7 Continue home meds:cyclo benzaprine 5 mg tid prnAPAP 1000 mg q 6 hr prnIbuprof en 800 mg tid, and 400 mg tid prnduloxet ine 60 mg q am, 30 mg q aft. and hsPT OT eval and tx.Refer to in house PMR Constipation 08198382 K5 9.00 Not on meds at this time, monitor need leonarda. with use of MSO4 Vitamin D deficiency 347 70776 E55.9 Vit D 94682 units q week Health Concerns Section Related Observation LastModified by Organization Detai ls LastModified Time None Recorded Concern Status LastModified by Organization Details LastModified Time None Recorded Advance Directives Directive Y: Payers Insurance Date Sequence Insurance Name Policy Number Policy Grier Covered Member ID Grier Member ID Guarantor Name 01/19/2024 1 [facility] - DOS ON OR AFTER 2022 - MEDICARE ADVANTAGE [place] (MEDICARE REPLACEMENT/ADV ANTAGE - PPO) Cathy Mary Fukn [id number] Cathy Mary Funk Notes Date Note Type Note Provider Name and Address Organization Details Recorded Time 01/18/2024 text/html Cathy is seen today for initial intake. She is a 54 yo lady [facility] from [facility] for continued care and rehab due to weakness and pain. She presented to [facility] with left sided pain x 1 month [...] the side of the bed for exam. candy mixer present. She says she had a horrible [...] tunnel, constipationFull code OLESYA MARTINEZ NP [address] [facility], [address], [place], [address], [facility] 01/18/2024 13:17:48 OBGyn Episode No OBEpisode recorded.
--- OUTSIDE RECORDS SUMMARY | 2025-02-22 21:52 | XMS_ITS | Clinical Summary ---
Author Organization [facility] Address [address] [facility] 7t [place] [address] Care Team Providers Care Revenue Settlements Administrator Name Role Phone Unavailable Primary Care Provider [...] patient's age to complete this topic Insurance [facility] STANDARD [facility] ADV
--- OUTSIDE RECORDS SUMMARY | 2025-02-22 21:52 | XMS_ITS | Encounter Summary ---
Author Organization [facility] Address [address] [place] [address] Care Team Providers Care Sand Temperer Name Role Phone Valarie Akbar MD Primary Care Provider [phone] Encounter Details Date Type Department Care Team (Late st Contact Info) Description 01/18/2024 Lab Requisition [facility] - Main Lab [address] [place] [address] Gary Kam MD [address] [facility] [address] [place], [address] Bipolar disorder, unspecified (CMS/HCC V24, CMS/HCC V28) Social History Tobacco Use Types Packs/Day Years Used Date Smoking Tobacco: Never Assessed Comments Unknown Sex and Gender Information Value Date Recorded Sex Assigned at Not on file Legal Sex Female 7:05 AM EST Gender Identity Not on file Sexual Orientation Not on file documented as of this encounter Plan of Treatment Not on file documented as of this encounter Procedures Procedure [...] Hemoglobin A1c (01/18/2024 6:29 AM EST) Pathologist [facility] Hemoglobin A1C 5.1 <6.5 % LAB CHEMISTRY METHOD 01/18/2024 8:31 PM [facility] Mean Bld Glu Estim. 100 mg/dL LAB CHEMISTRY METHOD 01/18/2024 8:31 PM [facility] Blood Venous blood specimen / Unknown 01/18/2024 6:29 AM EST 01/18/2024 1:32 PM EST us Gary Kam MD LAB BLOOD ORDERABLES Final Resul t [facility] [address] [place] [address], * CBC auto differential (01/18/2024 6:29 AM EST) Pathologist [facility] WBC 5.4 4.8 - 10.8 K/mcL LAB HEMETOLOGY METHOD 01/18/2024 1:33 PM [facility] RBC 4.80 3.80 - 4.80 M/mcL LAB HEMETOLOGY METHOD 01/18/2024 1:33 PM [facility] Hemoglobin 14.9 11.5 - 16.0 g/dL LAB HEMETOLOGY METHOD 01/18/2024 1:33 PM [facility] Hematocrit 45.7 35.0 - [...] 01/18/2024 1:33 PM [facility] Immature Granulocytes Relative 0.4 % LAB HEMETOLOGY METHOD 01/18/2024 1:33 PM [facility] Neutrophils Absolute 3.04 1.50 - 7.00 K/mcL LAB HEMETOLOGY METHOD 01/18/2024 1:33 PM [facility] Lymphocytes Absolute 1.70 1.00 - 5.00 K/mcL LAB HEMETOLOGY METHOD 01/18/2024 1:33 PM EST [facility] Monocytes Absolute 0.26 0.20 - 1.00 K/mcL LAB HEMETOLOGY METHOD 01/18/2024 1:33 PM EST [facility] Eosinophils Absolute 0.32 0.00 - 0.50 K/mcL LAB HEMETOLOGY METHOD 01/18/2024 1:33 PM EST [facility] Basophils Absolute 0.04 0.00 - 0.20 K/mcL LAB HEMETOLOGY METHOD 01/18/2024 1:33 PM EST [facility] Immature Granulocytes Absolute 0.02 0.00 - 0.03 K/mcL LAB HEMETOLOGY METHOD 01/18/2024 1:33 PM EST [facility] Blood Venous blood specimen / Unknown Venipuncture / Unknown 01/18/2024 6:29 AM EST 01/18/2024 12:24 PM EST us Gary Kam MD LAB BLOOD ORDERABLES Final Resul t [facility] [address] [place] [address], [place] [phone] * Travel phlebotomy fee (01/18/2024 6:29 AM EST) [facility] TRAVEL PHLEBOTOMY FEE Completed 01/18/2024 1:02 PM EST [facility] Blood Venous blood specimen / Unknown Venipuncture / Unknown 01/18/2024 6:29 AM EST 01/18/2024 12:24 PM EST us Gary Kam MD LAB BLOOD ORDERABLES Final Resul t Performing Organization Address City/[facility]/ZIP Co de Phone Number [facility] [address] [place] [address], [place] [phone] * (ABNORMAL) Comprehensive metabolic panel (01/18/2024 6:29 AM EST) [facility] Signature Sodium 140 133 - 145 mmol/L LAB [...] unit/L LAB CHEMISTRY METHOD 01/18/2024 4:18 PM EST [facility] Alkaline Phosphatase 167(H) [...] MD LAB BLOOD ORDERABLES Final Resul t [facility] [address] [place] [address], [place] [phone] documented in this encounter Visit Diagnoses Diagnosis Bipolar disorder, unspecified (CMS/HCC V24, CMS/HCC V28) Bipolar disorder, unspecified documented in this encounter Care Teams Sand Temperer Relationship Specialty Start Date End Date Valarie Akbar MD 2 [facility] , [address] Physician Associ D/B/A: [facility] [place], [place] PCP - General Internal Medicine 02/18/24 documented as of this encounter
--- OUTSIDE RECORDS SUMMARY | 2025-02-22 21:52 | XMS_ITS | Clinical Summary ---
Author Organization [address] Address [address] [place] [address] Phone Care Team Providers Care Almond Paste Molder Name Role Phone Valarie Akbar MD Primary Care Provider [phone] Allergies Active Allergy Reactions Criticality Noted Date [...] 10/11/2024 10:05 AM EDT Plan of Treatment Health Maintenance [...] patient's age to complete this topic Insurance [facility] Member Subscriber Plan / Payer (Ef fective 2016-Present) Name:MELINDA KOENIG Relation to Subscriber:Self Name:Melinda Koenig I Payer ID:[id number] Group ID:[id number] Type:Not on file Address: [address] [phone] MEDICAID - [place] Care Teams Almond Paste Molder Relationship Specialty Start Date End Date Valarie Akbar MD [address] [place] [address] , [address] [facility] D/B/A: [facility] [place], [place] PCP - General Internal Medicine 02/18/24
== END 2025-02-22 16:10 | disposition home or self-care (01) ==
LOC: HO.HOS 14:18
PROVIDERS: PCP Internal Medicine; Visit Provider Orthopaedic Surgery
DX: Z96.642 Presence of left artificial hip joint (principal)
CPT/HCPCS: 99024

== ENCOUNTER → 2025-02-22 14:20 | Outpatient (BNV) | payer OTHER, SELFPAY | PROVIDERS: Visit Provider Radiology Diagnostic Radiology | DX: M25.552 Pain in left hip (principal); Z96.641 Presence of right artificial hip joint; Z96.642 Presence of left artificial hip joint | CPT/HCPCS: 72170 ==

== ENCOUNTER 2025-03-14 09:11 | Outpatient (AMB) | payer OTHER, SELFPAY ==
--- OUTSIDE RECORDS SUMMARY | 2025-03-14 09:23 | XMS_ITS | Clinical Summary ---
Author Organization [address] Address [address] [place] [address] Phone Care Team Providers Care Boiler Tender Name Role Phone Valarie Akbar MD Primary Care Provider [phone] Allergies Active Allergy Reactions Criticality Noted Date [...] complete this topic Insurance [facility] Member Subscriber Plan / Payer (Ef fective 2016-Present) Name:MELINDA KOENIG Relation to Subscriber:Self Name:Melinda Koenig I Payer ID:[id number] Group ID:[id number] Type:Not on file Address: [address] [phone] [place] - [place] Care Teams Boiler Tender Relationship Specialty Start Date End Date Valarie Akbar MD [address] [place] [address] , [address] [facility] Associ D/B/A: [facility] [place], [place] PCP - General Internal Medicine 02/18/24
--- OUTSIDE RECORDS SUMMARY | 2025-03-14 09:23 | XMS_ITS | Clinical Summary ---
Author Organization [facility] Address [address] [facility] 7t [place] [address] Care Team Providers Care Newspaper Managing Editor Name Role Phone Unavailable Primary Care Provider [...] patient's age to complete this topic Insurance [facility] STANDARD [facility] ADV
--- OUTSIDE RECORDS SUMMARY | 2025-03-14 09:23 | XMS_ITS | Data Portability ---
Author Organization [facility], Main Office Address [address], [address] [place] [address] Care Team Providers Care Astronautical Engineer Name Role Phone KARL HARPER - 2ND [...] Recorded Time Pain in left lower limb [id number] Active 2023 OLESYA MARTINEZ NP [address], [address], [place], [address], [facility] 4 12:26:33 Asthenia 69363127 Active 2023 OLESYA MARTINEZ NP [address], [address], [place], [address], [facility] 4 12:26:40 Recurrent falls 780205005 Active 2023 OLESYA MARTINEZ NP [address], [address], [place], [address], [facility] 4 12:26:58 Major depressive disorder 009699349 Active 2023 OLESYA MARTINEZ NP [address], [address], [place], [address], [facility] 4 12:27:07 Anxiety 51812592 Active 2023 OLESYA MARTINEZ NP [address], [address], [place], [address], [facility] 4 12:27:14 Bipolar disorder 44198252 Active 2023 OLESYA MARTINEZ NP [address], [address], [place], [address], [facility] 4 12:27:21 Fibromyalgia 581309716 Active 2023 OLESYA MARTINEZ NP [address], [address], [place], [address], [facility] 4 12:27:33 Post-traumatic stress disorder 56509686 Active 2023 OLESYA MARTINEZ NP [address], [address], [place], [address], [facility] 4 12:27:39 Urinary incontinence 690090909 Active 2023 OLESYA MARTINEZ NP [address], [address], [place], [address], [facility] 4 12:29:15 Osteoarthritis 061251143 Active 2023 OLESYA MARTINEZ NP [address], [address], [place], [address], [facility] 4 12:29:20 Carpal tunnel syndrome 25353431 Active 2023 OLESYA MARTINEZ NP [address], [address], [place], [address], [facility] 4 12:29:48 Vitamin D deficiency 76680307 Active 2023 OLESYA MARTINEZ NP [address], [address], [place], [address], [facility] 4 12:29:58 Constipation 92265966 Active 2023 OLESYA MARTINEZ NP [address], [address], [place], [address], [facility] 4 12:30:10 Problem Notes None recorded. Medical Equipment None Reported. Allergies Allergen ID Allergen Name Allergen Category Reaction Reaction Severity Criticality Documentation Date Start Date Code Code System Note Provider Name and Address Organization Details Recorded Time 73025 fentanyl medicatio n Not available Not available Not available 01/18/2024 4337 RxNorm vomit ing OLESYA MARTINEZ NP [address] [facility], [address], [place], [address], [facility] 4 12:11:38 30614 Product containin g penicilli n (product) medicatio n Not available Not available Not available 01/18/2024 91166 8001 SNOMED anaph ylaxi s OLESYA MARTINEZ NP [address] [facility], [address], [place], [address], [facility] 4 12:12:12 76548 Zoloft medicatio n Not available Not available Not available 01/18/2024 51674 RxNorm anxie ty OLESYA MARTINEZ NP [address] [facility], [address], [place], [address], [facility] 4 12:12:28 54293 Ambien medicatio n Not available Not available Not available 01/18/2024 16695 5 RxNorm suici jazmyn attem pt OLESYA MARTINEZ NP [address] [facility], [address], [place], [address], [facility] 4 12:12:44 Vitals Date Recorded Heart rate Respiratory rate Body temperature Oxygen saturation Systolic And Diastolic Provider Name and Address Organization Details Last Updated DateTime 4 82 /min 18 /min 98 [degF] 99 % 132/75 mm[Hg] OLESYA MARTINEZ NP [address] [facility], [address], [place], [address], [facility] 4 12:08:28 Social History Question Answer Notes LastModified by Organizat ion Details LastModified Time Tobacco Smoking Status Never Smoker OLESYA MARTINEZ NP [address] [facility], [address], [place], [address], [facility] 01/18/2024 12:34:28 Do You Have An Advance Directive? Yes [email or web address] Information not available 01/18/2024 What Is Your Code Status? Full Code [email or web address] Information not available 01/18/2024 Which Illicit Or Recreational Drugs Have You Used? Cannabis For Pain Mgmt. [email or web address] Information not available 01/18/2024 Where Do You Live? [address]ment [address] Lives With Dog. Sister Nearby, Supportive . CLEANER SIGNS 28 Hrs/wk [email or web address] Information not available 01/18/2024 Do You Have A Medical Power Of Clerk Secretary? Yes Has HCP [email or web address] Information not available 01/18/2024 What Was The Date Of Your Most Recent Tobacco Screening? 01/18/2024 [email or web address] Information not available 01/18/2024 Do You Have An Out Of Hospital DNR? Yes [email or web address] Information not available 01/18/2024 Have You Used IV Drugs? No [email or web address] Information not available 01/18/2024 Sex: Unknown Functional Status Question Answer Note LastModified by Organizat ion Details LastModified Time Do you use any illicit or recreational drugs? Yes [email or web address] Information not available 01/18/2024 Do you or have you ever used any other forms of tobacco or nicotine? No [email or web address] Information not available 01/18/2024 What is your level of alcohol consumption? None Information not available 01/18/2024 Mental Status None recorded. Family History Relationship Description Onset Age of this Age Resolved Age Notes LastModified by Organization Details LastModified Time Father Depressive disorder Not available 2023 12:32:30 Father Mental disorder Not available 2023 12:32:51 Mother Diabetes mellitus Not available 2023 12:33:28 Mother Malignant neoplasm of breast Not available 2023 12:33:40 Medical History No medical history recorded. Gynecological HistoryNo gynecological history recorded. Obstetrics History GPAL:G 0 P 0 0 0 0 Immunizations Vaccine Type Date Status Note Provider Nam e and Address Organization Details Recorded Time Tdap 07/29/2018 betsy Carvajal [facility] 01/20/2024 16:39:53 Td(adult) unspecified formulation 07/06/2017 betsy Carvajal [facility] 01/20/2024 16:40:06 SARS-COV-2 (COVID-19) vaccine, UNSPECIFIED 07/18/2020 completed Ananya [facility] 01/20/2024 16:40:50 SARS-COV-2 (COVID-19) vaccine, UNSPECIFIED 08/15/2020 completed Ananya [facility] 01/20/2024 16:40:57 SARS-COV-2 (COVID-19) vaccine, UNSPECIFIED 03/04/2021 completed Ananya [facility] 01/20/2024 16:41:06 SARS-COV-2 (COVID-19) vaccine, UNSPECIFIED 03/25/2022 completed Ananya [facility] 01/20/2024 16:41:16 SARS-COV-2 (COVID-19) vaccine, UNSPECIFIED 12/29/2022 completed Ananya [facility] 01/20/2024 16:41:24 Past Encounters Encounter ID Performer Location Encounter Start Date Encounter Closed Date Diagnosis/Indication Diagnosis SNOMED-CT Code Diagnosis ICD10 Code Diagnosis IMO Codes Diagnosis Note [id number] OLESYA MARTINEZ NP [address] [address] 01/18/2024 12:07:38 01/19/2024 10:19:11 Pain in left lower limb 197173619 M79.605 with hx. of recurrent fallsMSIR 15 [...] and txRefer to PMR as well. Asthenia 06585256 R53.1 PT OT eval and tx.Gait instabilit y due left bunion/megan lous which in turn contribute s to L hip/LE painManage pain as aboveRefer to PMRGoal is to return home. Bipolar disorder 4866194 4 F31.9 anxiety, depression , complicate d [...] med mgmt.Monit or mood and behaviors Fibromyalgia 039068814 M 79.7 Continue home meds:cyclo benzaprine 5 mg tid prnAPAP 1000 mg q 6 hr prnIbuprof en 800 mg tid, and 400 mg tid prnduloxet ine 60 mg q am, 30 mg q aft. and hsPT OT eval and tx.Refer to in house PMR Constipation 03971005 K5 9.00 Not on meds at this time, monitor need leonarda. with use of MSO4 Vitamin D deficiency 347 42213 E55.9 Vit D 71029 units q week Health Concerns Section Related Observation LastModified by Organization Detai ls LastModified Time None Recorded Concern Status LastModified by Organization Details LastModified Time None Recorded Advance Directives Directive Y: Payers Insurance Date Sequence Insurance Name Policy Number Policy Grier Covered Member ID Grier Member ID Guarantor Name 01/19/2024 1 [facility] - DOS ON OR AFTER 2022 - MEDICARE ADVANTAGE [place] (MEDICARE REPLACEMENT/ADV ANTAGE - PPO) Cathy Mary Funk [id number] Cathy Mary Funk Notes Date Note Type Note Provider Name and Address Organization Details Recorded Time 01/18/2024 text/html Cathy is seen today for initial intake. She is a 54 yo lady admitted to [facility] 01/17/24 from [facility] for continued care and rehab due to weakness and pain. She presented to [facility] with left sided pain x 1 month [...] the side of the bed for exam. historic interpreter present. She says she had a horrible [...] tunnel, constipationFull code OLESYA MARTINEZ NP [address] [facility], [address], [place], [address], [facility] 01/18/2024 13:17:48 OBGyn Episode No OBEpisode recorded.
--- OUTSIDE RECORDS SUMMARY | 2025-03-14 09:23 | XMS_ITS | Encounter Summary ---
Author Organization [facility] Address [address] [place] [address] Care Team Providers Care Air Crew Officer Name Role Phone Valarie Akbar MD Primary Care Provider [phone] Encounter Details Date Type Department Care Team (Late st Contact Info) Description 01/18/2024 Lab Requisition [facility] - Main Lab [address] [place] [address] Gary Kam MD [address] [facility] [address] [place], [address] Bipolar disorder, unspecified (CMS/HCC V24, CMS/HCC [...] Hemoglobin A1c (01/18/2024 6:29 AM EST) Pathologist [facility] Hemoglobin A1C 5.1 <6.5 % LAB CHEMISTRY METHOD 01/18/2024 8:31 PM [facility] Mean Bld Glu Estim. 100 mg/dL LAB CHEMISTRY METHOD 01/18/2024 8:31 PM [facility] Blood Venous blood specimen / Unknown 01/18/2024 6:29 AM EST 01/18/2024 1:32 PM EST us Gary Kam MD LAB BLOOD ORDERABLES Final Resul t [facility] [address] [place] [address], * CBC auto differential (01/18/2024 6:29 AM EST) Pathologist [facility] WBC 5.4 4.8 - 10.8 K/mcL LAB HEMETOLOGY METHOD 01/18/2024 1:33 PM [facility] RBC 4.80 3.80 - 4.80 M/mcL LAB HEMETOLOGY METHOD 01/18/2024 1:33 PM WHITE [...] LAB HEMETOLOGY METHOD 01/18/2024 1:33 PM EST [facility] Monocytes Absolute 0.26 0.20 - 1.00 K/mcL LAB HEMETOLOGY METHOD 01/18/2024 1:33 PM EST [facility] Eosinophils Absolute 0.32 0.00 - 0.50 K/mcL LAB HEMETOLOGY METHOD 01/18/2024 1:33 PM EST [facility] Basophils Absolute 0.04 0.00 - 0.20 K/mcL LAB HEMETOLOGY METHOD 01/18/2024 1:33 PM EST [facility] Immature Granulocytes Absolute 0.02 0.00 - 0.03 K/mcL LAB HEMETOLOGY METHOD 01/18/2024 1:33 PM EST [facility] Blood Venous blood specimen / Unknown Venipuncture / Unknown 01/18/2024 6:29 AM EST 01/18/2024 12:24 PM EST us Gary Kam MD LAB BLOOD ORDERABLES Final Resul t [facility] [address] [place] [address], [place] [phone] * Travel phlebotomy fee (01/18/2024 6:29 AM EST) [facility] TRAVEL PHLEBOTOMY FEE Completed 01/18/2024 1:02 PM EST [facility] Blood Venous blood specimen / Unknown Venipuncture / Unknown 01/18/2024 6:29 AM EST 01/18/2024 12:24 PM EST us Gary Kam MD LAB BLOOD ORDERABLES Final Resul t Performing Organization Address City/[facility]/ZIP Co de Phone Number [facility] [address] [place] [address], [place] [phone] * (ABNORMAL) Comprehensive metabolic panel (01/18/2024 6:29 AM EST) [facility] Signature Sodium 140 133 - 145 mmol/L [...] LAB CHEMISTRY METHOD 01/18/2024 4:18 PM EST [facility] Alkaline Phosphatase 167(H) [...] MD LAB BLOOD ORDERABLES Final Resul t [facility] [address] [place] [address], [place] [phone] documented in this encounter Visit Diagnoses Diagnosis Bipolar disorder, unspecified (CMS/HCC V24, CMS/HCC V28) Bipolar disorder, unspecified documented in this encounter Care Teams Air Crew Officer Relationship Specialty Start Date End Date Valarie Akbar MD 2 [facility] , [address] Physician Associ D/B/A: [facility] [place], [place] PCP - General Internal Medicine 02/18/24 documented as of this encounter
--- NOTE | 2025-03-14 09:28 | MHC.OFFVIS ---
Intake Visit Reasons: PO-Patient fall DOI;03/04/25: L KRISTIN w/NE 01/09/25 Intake Note: Cathy is a 55 year old female who presents today post operatively after she sustained a fall on 03/04/25 status post left KRISTIN on 01/09/25. Patient reports that she had a fall at a restaurant. She presented to [facility] by ambulance. Today patient reports increased pain and tightness, stating her pain feels as an itch. Allergies fentanyl (FENTANYL) Allergy (Intermediate, Verified 03/14/25 09:36) VOMITING Penicillins (PENICILLINS) Allergy (Intermediate, Verified 03/14/25 09:36) ANAPHYLAXIS sertraline (From ZOLOFT) Allergy (Intermediate, Verified 03/14/25 09:36) ANXIETY zolpidem (From AMBIEN) Allergy (Intermediate, Verified 03/14/25 09:36) suicidal attempt with zolpidem Medication List - Last Reconciled 03/14/25 by Buddy Nix PA-C acetaminophen 650 mg (2 x 325 mg) PO Q6H PRN 30 days aspirin 325 mg PO BID 42 days [bed rail As directed] [bed side commode duration-99 days] benztropine 1 mg PO BEDTIME PRN [cane As directed] cane As directed celecoxib 200 mg PO BID 30 days clonazepam 1 mg PO BID diclofenac sodium 1% 4 grams topical BID PRN docusate sodium 100 mg PO BID 7 days duloxetine 60 mg PO BID [Folding Front Wheeled walker Duration: 99 days] oxcarbazepine 150 mg PO BID 15 days oxcarbazepine 600 mg PO BID 15 days oxycodone-acetaminophen 5-325 mg (Percocet) 1 tab PO Q6H PRN 7 days quetiapine 400 mg PO BEDTIME 15 days quetiapine 50 mg PO BID PRN [Rollator with seat As directed] [shower chair As directed] [toilet seat elevator As directed] HPI Comments Details: History of Present Illness The patient is a 55-year-old female presenting for a follow-up of a fall that occurred about 10 days ago, on the . Patient is s/p LT KRISTIN with Dr Silvestre 01/09/25. On the day of the incident, she was in a restroom when she suddenly felt ill, began vomiting, experienced severe diarrhea, and became dizzy. She attempted to get up, but fainted, hit her head, and does not recall the events immediately following the fall. She was taken to a hospital in [place], where she was treated with morphine for severe pain. Currently, she reports some pain in her left hip, specifically on the lateral side, as well as in her left knee. She notes some groin pain is always present but is not significant. The patient has a history of a left hip replacement. She reports a fear of leaving her house due to a fear of falling, which she relates to her depression and nervousness. She has ibuprofen at home but has not been taking it consistently for her discomfort. Social History - Functional Status: The patient reports she does not want to leave her house due to a fear of falling. - Living Situation: The patient lives by herself. [facility] Medical History S/P ECT (electroconvulsive therapy) History of headache Numbness Severe major depression without psychotic features MDD (major depressive disorder), recurrent episode, moderate Frequent falls Shoulder pain, bilateral Lumbar pain Screening for cervical cancer Osteoarthritis of right knee Urinary incontinence Skin lesion Right sided abdominal pain Cervical radiculopathy Osteoarthritis of acromioclavicular joint Rotator cuff tendonitis Chronic right shoulder pain Cervical strain Polyarthralgia Carpal tunnel syndrome Bipolar disorder Depression Anxiety Hypovitaminosis D Constipation by delayed colonic transit Surgical History History of lumbar surgery Hx of colonoscopy History of surgery History of right hip replacement History of hemorrhoidectomy History of bunionectomy History of cholecystectomy History of appendectomy Family History Father Depression Prostate cancer Chronic mental illness Mother Diabetes Cancer Breast cancer Maternal Aunt Breast cancer Family/Other Chronic mental illness Other Mental health disorder Social History Household Members: None Household Members Other:: My dog Housing: Apartment Are you a primary resident caregiver to a significant other at home: No Do you presently have visiting nurse or other home services: No Alcohol intake: never Patient Tobacco Use Status: Never used Tobacco e-Cigarette/Vaping Use: Never Used Second Hand Smoke Exposure: No Substance Use Type: Marijuana Advance Directives Date on File: 01/17/24 service: No Current occupational status: disabled 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 Physical Exam Exam Exam: Physical Exam - Musculoskeletal: On examination of the left lower extremity, the patient is able to perform an active straight leg raise. There is tenderness to palpation over the lateral hip musculature. Passive range of motion of the hip joint is non-painful. The prosthesis feels stable. Assessment & Plan Assessment & Plan (1) History of total left hip replacement: Code(s): Z96.642 - Presence of left artificial hip joint Category: Surgical Plan Plan The patient sustained a fall approximately 10 days ago following a syncopal episode. X-rays performed today confirm that the left hip prosthesis is in good position, stable, and shows no evidence of fracture or dislocation. The current pain is likely due to a soft tissue contusion or muscle irritation from the fall, as examination reveals tenderness over the lateral musculature rather than intra-articular pain. Reassurance was provided regarding the stability of the prosthesis, and she was encouraged to resume normal activities and ambulation. For pain management, a prescription for topical Voltaren cream will be sent to her pharmacy, as per her preference. She has an appt with Dr Silvestre for her routine post op follow up on April 05 which she will keep to monitor her progress. Consent Patient was informed and verbally consented to the use of an ambient scribe for clinic note documentation during this visit. Orders: Orders XR hip LT min 2V Today M25.552 - Pain in left hip Medications: New diclofenac sodium 1% 4 grams topical BID PRN 100 grams 0RF Pain Coding Level of Care Code Est Pt Level 3 (97430) Add On Problem Visit Only Diagnoses History of total left hip replacement Z96.642
== END 2025-03-14 10:13 | disposition home or self-care (01) ==
LOC: HO.HOS 09:12
PROVIDERS: PCP Internal Medicine; Visit Provider Physician Assistant
DX: Z96.642 Presence of left artificial hip joint (principal)
CPT/HCPCS: 99024

== ENCOUNTER → 2025-03-14 09:18 | Outpatient (BNV) | payer OTHER, SELFPAY | PROVIDERS: Visit Provider Radiology Diagnostic Radiology | DX: M25.552 Pain in left hip (principal); Z96.642 Presence of left artificial hip joint | CPT/HCPCS: 73502 ==

== ENCOUNTER 2025-03-14 10:51 | Outpatient (REF) | payer OTHER, SELFPAY ==
--- NOTE | ~2025-03-14 | XR_ITS ---
EXAMINATION: XR HIP, LEFT CLINICAL INFORMATION: M25.552 - Pain in left hip COMPARISON: 11/21/2024. TECHNIQUE: AP pelvis, and Two views of the left hip. FINDINGS: There have been total bilateral hip arthroplasties. Femoral, and acetabular components are bilaterally intact, in place, well seated, in anatomic alignment. No periprosthetic fracture or complication. No evidence of fracture, subsidence or stress shielding. There is mild heterotopic bone formation abutting the lateral acetabular component on the left. This appeared to have been present pre-joint replacement. No significant heterotopic formation on the right. The pelvis is intact. The SI joints appear normal aside from mild degenerative changes. XR/XR hip LT min 2V IMPRESSION: Total left hip arthroplasty without complication evident. Electronically signed by: Aleksandar Suarez MD 03/14/2025 09:32 AM [facility]
--- OUTSIDE RECORDS SUMMARY | 2025-03-16 11:36 | XMS_ITS | Clinical Summary ---
Author Organization [address] Address [address] [place] [address] Phone Care Team Providers Care Federal Mediator Name Role Phone Valarie Akbar MD Primary Care Provider [phone] Allergies Active Allergy Reactions Criticality Noted Date [...] patient's age to complete this topic Insurance [facility] Member Subscriber Plan / Payer (Ef fective 2016-Present) Name:MELINDA KOENIG Relation to Subscriber:Self Name:Melinda Koenig I Payer ID:[id number] Group ID:[id number] Type:Not on file Address: [address] [place] [id number] MEDICAID - [place] Care Teams Federal Mediator Relationship Specialty Start Date End Date Valarie Akbar MD [address] [place] [address] , [address] [facility] D/B/A: [facility] [place], [place] PCP - General Internal Medicine 02/18/24
--- OUTSIDE RECORDS SUMMARY | 2025-03-16 11:36 | XMS_ITS | Encounter Summary ---
Author Organization [employer] Address [address] [place] [address] Care Team Providers Care Lime Kiln Worker Helper Name Role Phone Valarie Akbar MD Primary Care Provider [phone] Encounter Details Date Type Department Care Team (Late st Contact Info) Description 01/18/2024 Lab Requisition [facility] - Main Lab [address] [place] [address] Gary Kam MD [address] [facility] [address] [place], [address] Bipolar disorder, unspecified (CMS/HCC V24, CMS/HCC [...] Hemoglobin A1c (01/18/2024 6:29 AM EST) Pathologist [facility] Hemoglobin A1C 5.1 <6.5 % LAB CHEMISTRY METHOD 01/18/2024 8:31 PM [facility] Mean Bld Glu Estim. 100 mg/dL LAB CHEMISTRY METHOD 01/18/2024 8:31 PM [facility] Blood Venous blood specimen / Unknown 01/18/2024 6:29 AM EST 01/18/2024 1:32 PM EST us Gary Kam MD LAB BLOOD ORDERABLES Final Resul t [facility] [address] [place] [address], * CBC auto differential (01/18/2024 6:29 AM EST) Pathologist [facility] WBC 5.4 4.8 - 10.8 K/mcL LAB HEMETOLOGY METHOD 01/18/2024 1:33 PM [facility] RBC 4.80 3.80 - 4.80 M/mcL LAB HEMETOLOGY METHOD 01/18/2024 1:33 PM [facility] Hemoglobin 14.9 11.5 - 16.0 g/dL LAB HEMETOLOGY METHOD 01/18/2024 1:33 PM [facility] Hematocrit 45.7 35.0 - 47.0 % LAB HEMETOLOGY METHOD 01/18/2024 1:33 PM [facility] MCV 95.0 79.0 - 98.0 FL LAB HEMETOLOGY METHOD 01/18/2024 1:33 PM [facility] MCH 31.0 27.0 - 32.0 pcg LAB HEMETOLOGY METHOD 01/18/2024 1:33 PM [facility] MCHC 32.6 32.0 - 37.0 g/dL LAB HEMETOLOGY METHOD 01/18/2024 1:33 PM [facility] RDW 13.2 11.0 - 15.0 % LAB HEMETOLOGY METHOD 01/18/2024 1:33 PM [facility] Platelets 307 130 - 400 K/mcL LAB HEMETOLOGY METHOD 01/18/2024 1:33 PM [facility] MPV 9.2 7.0 - 11.0 FL LAB HEMETOLOGY METHOD 01/18/2024 1:33 PM [facility] NRBC 0.0 <1.0 % LAB HEMETOLOGY METHOD 01/18/2024 1:33 PM [facility] NRBC Absolute 0.00 <0.10 K/mcL LAB HEMETOLOGY METHOD 01/18/2024 1:33 PM [facility] Neutrophils Relative 56.6 % LAB HEMETOLOGY METHOD 01/18/2024 1:33 PM [facility] Lymphocytes Relative 31.6 % LAB HEMETOLOGY METHOD 01/18/2024 1:33 PM [facility] Monocytes Relative 4.8 % LAB HEMETOLOGY METHOD 01/18/2024 1:33 PM [facility] Eosinophils Relative 5.9 % LAB HEMETOLOGY METHOD 01/18/2024 1:33 PM [facility] Basophils Relative 0.7 % LAB HEMETOLOGY METHOD 01/18/2024 1:33 PM [facility] Immature Granulocytes Relative 0.4 % LAB HEMETOLOGY METHOD 01/18/2024 1:33 PM [facility] Neutrophils Absolute 3.04 1.50 - 7.00 K/mcL LAB HEMETOLOGY METHOD 01/18/2024 1:33 PM [facility] Lymphocytes Absolute 1.70 1.00 - 5.00 K/mcL LAB HEMETOLOGY METHOD 01/18/2024 1:33 PM EST [facility] Monocytes Absolute 0.26 0.20 - 1.00 K/mcL LAB HEMETOLOGY METHOD 01/18/2024 1:33 PM EST [facility] Eosinophils Absolute 0.32 0.00 - 0.50 K/mcL LAB HEMETOLOGY METHOD 01/18/2024 1:33 PM EST [facility] Basophils Absolute 0.04 0.00 - [...] t [facility] [address] [place] [address], [place] [phone] * Travel phlebotomy fee (01/18/2024 6:29 AM EST) [facility] TRAVEL PHLEBOTOMY FEE Completed 01/18/2024 1:02 PM EST [facility] Blood Venous blood specimen / Unknown Venipuncture / Unknown 01/18/2024 6:29 AM EST 01/18/2024 12:24 PM EST us Gary Kam MD LAB BLOOD ORDERABLES Final Resul t Performing Organization Address City/[facility]/ZIP Co de Phone Number [facility] [address] [place] [address], [place] [phone] * (ABNORMAL) Comprehensive metabolic panel (01/18/2024 6:29 AM EST) [facility] Signature Sodium 140 133 - 145 mmol/L LAB CHEMISTRY METHOD 01/18/2024 4:18 PM [facility] Potassium 5.3 3.5 - 5.5 mmol/L LAB CHEMISTRY METHOD 01/18/2024 4:18 PM [facility] Chloride 111(H) 96 - 110 mmol/L LAB CHEMISTRY METHOD 01/18/2024 4:18 PM [facility] CO2 24 21 - 32 mmol/L LAB CHEMISTRY METHOD 01/18/2024 4:18 PM [facility] Anion Gap 5 3 - 11 LAB CHEMISTRY METHOD 01/18/2024 4:18 PM [facility] Glucose 69(L) 70 - 100 mg/dL LAB CHEMISTRY METHOD 01/18/2024 4:18 PM [facility] BUN 11 5 - 25 mg/dL LAB CHEMISTRY METHOD 01/18/2024 4:18 PM [facility] Creatinine 0.82 0.50 - 1.10 mg/dL LAB CHEMISTRY METHOD 01/18/2024 4:18 PM [facility] eGFR 84 >=60 mL/min/1. 73m2 LAB CHEMISTRY METHOD 01/18/2024 4:18 PM [facility] Comment:Calculation based on the Chronic Kidney Disease Epidemiology Collaboration (CKD-EPI) equation refit without adjustment for race. BUN/Creatinine Ratio 13.4 LAB CHEMISTRY METHOD 01/18/2024 4:18 PM [facility] Calcium 10.6(H) 8.5 - 10.5 mg/dL LAB CHEMISTRY METHOD 01/18/2024 4:18 PM [facility] AST (SGOT) 36 10 - 42 unit/L LAB CHEMISTRY METHOD 01/18/2024 4:18 PM [facility] ALT (SGPT) 34 10 - 60 unit/L LAB CHEMISTRY METHOD 01/18/2024 4:18 PM EST [facility] Alkaline Phosphatase 167(H) 42 - 121 unit/L LAB CHEMISTRY METHOD 01/18/2024 4:18 PM [facility] Total Protein 9.0(H) 6.0 - 8.0 g/dL LAB CHEMISTRY METHOD 01/18/2024 4:18 PM [facility] Albumin 4.7 3.2 - 5.0 g/dL LAB CHEMISTRY METHOD 01/18/2024 4:18 PM [facility] Total Bilirubin 0.6 0.0 - 1.4 mg/dL LAB CHEMISTRY METHOD 01/18/2024 4:18 PM [facility] Blood Venous blood specimen / Unknown Venipuncture / Unknown 01/18/2024 6:29 AM EST 01/18/2024 12:24 PM EST us Gary Kam MD LAB BLOOD ORDERABLES Final Resul t [facility] [address] [place] [address], [place] [phone] documented in this encounter Visit Diagnoses Diagnosis Bipolar disorder, unspecified (CMS/HCC V24, CMS/HCC V28) Bipolar disorder, unspecified documented in this encounter Care Teams Lime Kiln Worker Helper Relationship Specialty Start Date End Date Valarie Akbar MD 2 [facility] , [address] Physician [facility] D[facility]A: [facility] [place], [place] PCP - General Internal Medicine 02/18/24 documented as of this encounter
--- OUTSIDE RECORDS SUMMARY | 2025-03-16 11:36 | XMS_ITS | Data Portability ---
Author Organization [facility], Main Office Address [address] [place] [address] Care Team Providers Care Car Rental Agent Name Role Phone KARL HARPER - 2ND [...] Recorded Time Pain in left lower limb [id number] Active 2023 OLESYA MARTINEZ NP [address], [place], [address], [facility] 4 12:26:33 Asthenia 19646713 Active 2023 OLESYA MARTINEZ NP [address], [address], [place], [address], [facility] 4 12:26:40 Recurrent falls 771661843 Active 2023 OLESYA MARTINEZ NP [address], [address], [place], [address], [facility] 4 12:26:58 Major depressive disorder 309397068 Active 2023 OLESYA MARTINEZ NP [address], [place], [address], [facility] 4 12:27:07 Anxiety 59215292 Active 2023 OLESYA MARTINEZ NP [address], [place], [address], [facility] 4 12:27:14 Bipolar disorder 81299836 Active 2023 OLESYA MARTINEZ NP [address], [place], [address], [facility] 4 12:27:21 Fibromyalgia 816750881 Active 2023 OLESYA MARTINEZ NP [address], [place], [address], [facility] 4 12:27:33 Post-traumatic stress disorder 60913102 Active 2023 OLESYA MARTINEZ NP [address], [place], [address], [facility] 4 12:27:39 Urinary incontinence 646923481 Active 2023 OLESYA MARTINEZ NP [address], [place], [address], [facility] 4 12:29:15 Osteoarthritis 687256222 Active 2023 OLESYA MARTINEZ NP [address], [place], [address], [facility] 4 12:29:20 Carpal tunnel syndrome 59919865 Active 2023 OLESYA MARTINEZ NP [address], [place], [address], [facility] 4 12:29:48 Vitamin D deficiency 70841416 Active 2023 OLESYA MARTINEZ NP [address], [place], [address], [facility] 4 12:29:58 Constipation 12769158 Active 2023 OLESYA MARTINEZ NP [address], [place], [address], [facility] 4 12:30:10 Problem Notes None recorded. Medical Equipment None Reported. Allergies Allergen ID Allergen Name Allergen Category Reaction Reaction Severity Criticality Documentation Date Start Date Code Code System Note Provider Name and Address Organization Details Recorded Time 62561 fentanyl medicatio n Not available Not available Not available 01/18/2024 4337 RxNorm vomit ing OLESYA MARTINEZ NP [address] [facility], [address], [place], [address], [facility] 4 12:11:38 70924 Product containin g penicilli n (product) medicatio n Not available Not available Not available 01/18/2024 05059 8001 SNOMED anaph ylaxi s OLESYA MARTINEZ NP [address] [facility], [address], [place], [address], [facility] 4 12:12:12 21455 Zoloft medicatio n Not available Not available Not available 01/18/2024 07146 RxNorm anxie ty OLESYA MARTINEZ NP [address] [facility], [address], [place], [address], [facility] 4 12:12:28 48624 Ambien medicatio n Not available Not available Not available 01/18/2024 78407 5 RxNorm suici jazmyn attem pt OLESYA MARTINEZ NP [address] [facility], [address], [place], [address], [facility] 4 12:12:44 Vitals Date Recorded Heart rate Respiratory rate Body temperature Oxygen saturation Systolic And Diastolic Provider Name and Address Organization Details Last Updated DateTime 4 82 /min 18 /min 98 [degF] 99 % 132/75 mm[Hg] OLESYA MARTINEZ NP [address] [facility], [address], [place], [address], [facility] 4 12:08:28 Social History Question Answer Notes LastModified by Organizat ion Details LastModified Time Tobacco Smoking Status Never Smoker OLESYA MARTINEZ NP [address] [facility], [address], [place], [address], [facility] 01/18/2024 12:34:28 Do You Have An Advance Directive? Yes Information not available 01/18/2024 What Is Your Code Status? Full Code [email or web address] Information not available 01/18/2024 Which Illicit Or Recreational Drugs Have You Used? Cannabis For Pain Mgmt. [email or web address] Information not available 01/18/2024 Where Do You Live? [address] Lives With Dog. Sister Nearby, Supportive . 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 Yes Has HCP Information not available 01/18/2024 What Was The Date Of Your Most Recent Tobacco Screening? 01/18/2024 Information not available 01/18/2024 Do You Have An Out Of Hospital DNR? Yes [email or web address] Information not available 01/18/2024 Have You Used IV Drugs? No Information not available 01/18/2024 Sex: Unknown Functional Status Question Answer Note LastModified by Organizat ion Details LastModified Time Do you use any illicit or recreational drugs? Yes Information not available 01/18/2024 Do you or have you ever used any other forms of tobacco or nicotine? No [email or web address] Information not available 01/18/2024 What is your level of alcohol consumption? None [email or web address] Information not available 01/18/2024 Mental Status None recorded. Family History Relationship Description Onset Age of this Age Resolved Age Notes LastModified by Organization Details LastModified Time Father Depressive disorder [email or web address] Not available 2023 12:32:30 Father Mental disorder [email or web address] Not available 2023 12:32:51 Mother Diabetes mellitus [email or web address] Not available 2023 12:33:28 Mother Malignant neoplasm of breast Not available 2023 12:33:40 Medical History No medical history recorded. Gynecological HistoryNo gynecological history recorded. Obstetrics History GPAL:G 0 P 0 0 0 0 Immunizations Vaccine Type Date Status Note Provider Nam e and Address Organization Details Recorded Time Tdap 07/29/2018 betsy Carvajal [facility] 01/20/2024 16:39:53 Td(adult) unspecified formulation 07/06/2017 betsy Carvajal [facility] 01/20/2024 16:40:06 SARS-COV-2 (COVID-19) vaccine, UNSPECIFIED 07/18/2020 completed [facility] 01/20/2024 16:40:50 SARS-COV-2 (COVID-19) vaccine, UNSPECIFIED 08/15/2020 completed [facility] 01/20/2024 16:40:57 SARS-COV-2 (COVID-19) vaccine, UNSPECIFIED 03/04/2021 completed [facility] 01/20/2024 16:41:06 SARS-COV-2 (COVID-19) vaccine, UNSPECIFIED 03/25/2022 completed [facility] 01/20/2024 16:41:16 SARS-COV-2 (COVID-19) vaccine, UNSPECIFIED 12/29/2022 completed [facility] 01/20/2024 16:41:24 Past Encounters Encounter ID Performer Location Encounter Start Date Encounter Closed Date Diagnosis/Indication Diagnosis SNOMED-CT Code Diagnosis ICD10 Code Diagnosis IMO Codes Diagnosis Note [id number] OLESYA MARTINEZ NP [address] [address] 01/18/2024 12:07:38 01/19/2024 10:19:11 Pain in left lower limb 667914162 M79.605 with hx. of recurrent fallsMSIR 15 [...] and txRefer to PMR as well. Asthenia 73824454 R53.1 PT OT eval and tx.Gait instabilit y due left bunion/megan lous which in turn contribute s to L hip/LE painManage pain as aboveRefer to PMRGoal is to return home. Bipolar disorder 8873310 4 F31.9 anxiety, depression , complicate d [...] med mgmt.Monit or mood and behaviors Fibromyalgia 694517255 M 79.7 Continue home meds:cyclo benzaprine 5 mg tid prnAPAP 1000 mg q 6 hr prnIbuprof en 800 mg tid, and 400 mg tid prnduloxet ine 60 mg q am, 30 mg q aft. and hsPT OT eval and tx.Refer to in house PMR Constipation 41886225 K5 9.00 Not on meds at this time, monitor need leonarda. with use of MSO4 Vitamin D deficiency 347 14966 E55.9 Vit D 78944 units q week Health Concerns Section Related Observation LastModified by Organization Detai ls LastModified Time None Recorded Concern Status LastModified by Organization Details LastModified Time None Recorded Advance Directives Directive Y: Payers Insurance Date Sequence Insurance Name Policy Number Policy Grier Covered Member ID Grier Member ID Guarantor Name 01/19/2024 1 [facility] - DOS ON OR AFTER 2022 - MEDICARE ADVANTAGE [place] (MEDICARE REPLACEMENT/ADV ANTAGE - PPO) Cathy Mary Funk [id number] Cathy Mary Funk Notes Date Note Type Note Provider Name and Address Organization Details Recorded Time 01/18/2024 text/html Cathy is seen today for initial intake. She is a 54 yo lady admitted to [facility] 01/17/24 from [facility] ER for continued care and rehab due to weakness and pain. She presented to [facility] with left sided pain x 1 month [...] the side of the bed for exam. agricultural service technician present. She says she had a horrible [...] tunnel, constipationFull code OLESYA MARTINEZ NP [address] [facility], [address], [place], [address], [facility] 01/18/2024 13:17:48 OBGyn Episode No OBEpisode recorded.
--- OUTSIDE RECORDS SUMMARY | 2025-03-16 11:36 | XMS_ITS | Clinical Summary ---
Author Organization [facility]ly [facility] Address [address] [place] [address] Care Team Providers Care Truck Washer Name Role Phone Unavailable Primary Care Provider [...] patient's age to complete this topic Insurance [facility] STANDARD [facility] ADV
== END 2025-03-14 10:52 | disposition home or self-care (01) ==
LOC: HO.HOSX 10:51
PROVIDERS: Visit Provider Physician Assistant
DX: Z47.1 Aftercare following joint replacement surgery (principal); Z96.642 Presence of left artificial hip joint; G89.18 Other acute postprocedural pain
CPT/HCPCS: 73502; 99212